=== PATIENT | male | born 1965 | race Caucasian/White ===

== ENCOUNTER 2022-02-08 10:38 | Day surgery (SDC) | payer MEDICAID, SELFPAY ==
[2022-02-08] VITALS (7 sets, daily range): BP systolic 123–145; BP diastolic 72–105; PULSE 67–75; RESP 16; TEMP 36.4–36.8; O2SAT 92–97; BMI 41.2
--- NOTE | 2022-02-08 | IMM_PTH ---
PATIENT: OMID WELLS LOC: EN U#:[id number] AGE/SX: 56/M ROOM: RE02/08/[address]: Dr. Wild Sanchez DO : 1965 BED: DIS: 02/08/2022 SPEC #: [id number] RECD: 02/11/22 13:04 STATUS: DENI REQ #: [id number] [place]: 02/08/22 00:[address]: Wild Sanchez DEPT: IMMUNOHISTOCHEMISTRY RECD BY: Carolina Durham ENTERED: 02/11/22 13:05 SP TYPE: IMMUNO OTHR DR: Dr. Stacey Coulter MD Tissues: Esophageal mucous membrane Procedures: P53 (initial) KI-67 (add) PHYSICIAN & INSTITUTION [place] [id number] SPECIMEN INFORMATION: Tissue Source: Distal esophagus Clinical Info: Dysphagia, nausea and vomiting Specimen Number: [id number] CPT code: 02263, 53743 METHODOLOGY: Deparaffinized sections of prefer/formalin-fixed tissue or PAP/DQ stained slides are incubated with monoclonal/polyclonal antibodies/oligonucleotide probes. Localization is made via biotin free immunoperoxidase method. Appropriate controls are performed and reacted as expected. Results on target cell population are indicated in the following table: RESULTS: ANTIBODY / CLONE RESULT P53 (DO-7) negative Ki-67 (30-9) positive, low These tests were developed and their performance characteristics determined by [facility]. They may not have been cleared or approved by the U.S. Food and Drug Administration. The FDA has determined that such clearance or approval is not necessary. The above immunohistochemical/dualISH markers are ordered and reviewed by the Pathologist. INTERPRETATION: Distal esophagus, biopsy: Negative for dysplasia. UMER:liliana 02/14/2022
[2022-02-08] MEDS: Lactated Ringers 1,000 ML 15 ML IV (11:00)
--- NOTE | 2022-02-08 11:51 | PCM.HP.BLA ---
History and Physical Date of Admission: 02/08/22 55 M who presents to the office today for Initial consult. Chito established with this clinic 12.09.21. Presented to [facility] ED 08.24.21 for LUQ abdominal pain starting that day with a sensation of a pop despite doing nothing strenuous; additional symptoms include chronic nausea and emesis for approximately for 4 years. Denies any aggravating or alleviating factors. He was given percocet and instructed to follow up with PCP as outpatient.? Narcotic induced constipation also an issue; utilizes oxycodone for back pain. Bowel regimen of Senna tablets daily is effective in regular BM.?Patient states that he has a BM at least once a day. PMH CAD; hernia repair, multiple; spinal osteomyelitis; obesity, Diabetes, kidney disease, high cholesterol. ? CT abd/pel 08.23.21 PH for abdominal pain noted cholecystectomy; diffuse thickening of distal esophagus; fatty replacement of pancreas; moderate stool burden; diverticulosis of descending colon; SQ tissue stranding, correlate with injection.? Biochemical Workup 08.23.21 RBC-3.77; HGB 11.1; HCT 32.9; Lymphocytes 14.4; Lipase 39; Glucose 250; BUN 44; Creatinine 2.04; Alk Phos 125; Globulin 4.0; GFR 34; A1C 8.2 Patient reports that medications, PPIs are not helpful for nausea, emesis. He also complains of difficulty swallowing and feels like even liquids are getting stuck in his throat. Patient states that he has a history of a hiatal hernia repair and his concern is that it is coming back. Patient states that he has a history of EGD, colonoscopy, and swallow study but does not remember what year these were done in. ROS Const Constitutional: Positive for fatigue and headache(s); No fever(s), frequent falls or weight change ENT ENT: Positive for headache(s) and difficulty swallowing Cardio Cardiology: No leg pain with exertion Gastro GI: Positive for abdominal pain, bloating, heartburn, difficulty swallowing, nausea/dyspepsia and vomiting; No change in bowel habits, constipation, diarrhea, Vomiting blood/hematemesis or Blood in stool Musc Musculoskeletal: Positive for joint pain, back pain, muscle cramps, numbness, tingling, Arthritis and sciatica; No abnormal gait, joint swelling, muscle weakness, stiffness, leg pain at night or leg pain with exertion Skin Skin: Positive for dry skin; No lesions, itchy eyes or rash Neuro Neurology: Positive for dizziness, headache(s), numbness, tingling and tremor(s); No abnormal gait, frequent falls, Increased tone in limbs, paralysis or seizures Psych Psychiatric: Positive for anxiety, Positive for depression, No paranoia, No Behavioral Problems, No Compulsive Behavior, No hyperactivity, No inattentiveness, No obsessions/compulsions, No Temper Tantrums and No suicidal ideation Endo Endocrine: Positive for fatigue; No weight change Aller/Imm Allergy/Immunologic: No itchy eyes De/Lymp Hematologic/Lymphatic: No easy bleeding or easy bruising Exam Const General: cooperative, comfortable, no acute distress and ill appearing chronically Nutritional Appearance: obese morbidly obese Orientation: alert, awake and oriented x3 Limitations: mental status not altered HENMT Head: normal to inspection Ears: hearing grossly normal bilaterally Eyes General: appearance normal, both eyes and all related structures Alignment and Position: alignment normal Sclera: sclerae normal Neck Neck: normal visual inspection and full ROM Neck mass: No Carotids: normal carotid upstroke Chest Chest palpation & inspection: normal inspection of the chest Resp Effort & Inspection: normal respiratory effort, able to speak in complete sentences, symmetric chest movement, no audible wheezes and no cough Auscultation: Bilateral: Clear to Auscultation Cardio Rate: regular rate Rhythm: regular rhythm Heart Sounds: S1 normal and S2 normal Bruits: no carotid bruits GI Inspection: normal to inspection and obesity Palpation: hernia ventral Musc Cervical Spine: normal cervical lordosis Thoracic/Lumbar Spine: thoracic and lumbar spine normal to inspection Skin General: no rashes or lesions noted Lesions: no lesions Rashes: no rashes Trauma: no lacerations or abrasions Wounds: wounds noted Other: + diabetic dermopathy Neuro General: patient alert, patient awake and patient oriented x3 Cognition: normal cognition Speech: speech normal Gait: gait assisted Method: walker Extrem General: normal to inspection, full ROM and no pedal edema Psych Appearance: grossly normal Mental Status: mental status grossly normal Mood: congruent mood Affect: normal affect Speech and Movement: speech and movement normal Attitude: cooperative Thought Process: normal Thought Content: normal Judgment: judgment good Quality Reporting Tobacco Screening ([facility] 138) Smoking Status: Current every day smoker Assessment and Plan Assessment and Plan (1) Dysphagia: ?Status:?Acute ?Plan: Esophageal dysphagia possibly secondary to esophageal ring, erosive esophagitis, eosinophilic esophagitis.? Undergoing upper endoscopy to evaluate his upper GI tract.? Schedule barium esophagram due to the fact that he cannot move in certain positions due to his multiple back issues.? He may need to undergo esophageal dilation.? He was explained alternatives, risk, benefits include not withstanding bleeding, infection, sepsis, perforation, need for urgent .? He will be an ASA of (2) Nausea & vomiting: ?Status:?Acute ?Plan: Nausea vomiting in the setting of a 30-year history of diabetes mellitus would be gastroparesis, dumping, peptic ulcer disease, slipped hiatal hernia repair, dysmotility of the upper GI tract.? He will get a gastric emptying study so we can evaluate his upper GI tract.? We will also perform an upper endoscopy to evaluate his upper GI tract for any structural abnormalities. ? ? ? Orders: Orders Gastric Emptying Study Today R13.10 - Dysphagia, unspecified ? I have examined the patient and the H&P has been reviewed. There are no clinical changes since date of exam.
[2022-02-08 11:55] LABS: Bedside Glucose 285 mg/dL (74-106)
--- NOTE | 2022-02-08 12:00 | EGD_PTH ---
PATIENT: OMID WELLS LOC: EN U#:[id number] AGE/SX: 56/M ROOM: RE02/08/[address]: Dr. Wild Sanchez DO : 1965 BED: DIS: 02/08/2022 SPEC #: [id number] RECD: 02/08/22 15:47 STATUS: DENI REQ #: [id number] [place]: 02/08/22 12:[address]: Wild Sanchez DEPT: SURGICAL PATHOLOGY RECD BY: Shante Leger ENTERED: 02/09/22 08:56 SP TYPE: EGD BIOPSY OT DR: Dr. 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 Chronic inflammation. Negative for dysplasia. See comment. UMER:liliana 02/11/2022 COMMENT Alcian blue/PAS stain with matched control is used in the evaluation of the specimen. Immunohistochemistry ([id number]) for P53 and Ki-67 will be performed and results will be reported separately. MICROSCOPIC DESCRIPTION Slides are reviewed. GROSS DESCRIPTION Received in fixative is one container labeled with the patient's name and designated distal esophagus biopsy. The specimen consists of two irregular fragments of light villarreal soft tissue that in aggregate measure 0.6 x 0.3 x 0.1 cm. The specimen is totally submitted in one cassette. / UMER:liliana 02/09/2022 TC:3 CPT: 43606, 47035
--- NOTE | 2022-02-08 12:29 | OP.EGD_ITS ---
Patient Name: Chito Bravo Procedure Date: 02/08/2022 12:04 PM Date of : 1965 Age: 56 Procedure: Upper GI endoscopy Indications: Functional Dyspepsia, Dysphagia Providers: Wild Sanchez DO Medicines: Monitored Anesthesia Care Patient Profile: This is a 56 year old male. Refer to note in patient chart for documentation of history and physical. Patient has symptoms of chronic abdominal cramping, chronic epigastric abdominal pain and chronic dysphagia. Complications: No immediate complications. Procedure: Pre-Anesthesia Assessment: - Prior to the procedure, a History and Physical was performed, and patient medications and allergies were reviewed. The patient is competent. The risks and benefits of the procedure and the sedation options and risks were discussed with the patient. All questions were answered and informed consent was obtained. Patient identification and proposed procedure were verified by the physician in the pre-procedure area. Mental Status Examination: alert and oriented. Airway Examination: normal oropharyngeal airway and neck mobility. Respiratory Examination: clear to auscultation. CV Examination: normal. Prophylactic Antibiotics: The patient does not require prophylactic antibiotics. Prior Anticoagulants: The patient has taken no previous anticoagulant or antiplatelet agents. ASA Grade Assessment: III - A patient with severe systemic disease. After reviewing the risks and benefits, the patient was deemed in satisfactory condition to undergo the procedure. The anesthesia plan was to use monitored anesthesia care (MAC). Immediately prior to administration of medications, the patient was re-assessed for adequacy to receive sedatives. The heart rate, respiratory rate, oxygen saturations, blood pressure, adequacy of pulmonary ventilation, and response to care were monitored throughout the procedure. The physical status of the patient was re-assessed after the procedure. After obtaining informed consent, the endoscope was passed under direct vision. Throughout the procedure, the patient's blood pressure, pulse, and oxygen saturations were monitored continuously. The gastroscope was introduced through the mouth, and advanced to the second part of duodenum. The upper GI endoscopy was accomplished without difficulty. The patient tolerated the procedure well. Scope In: 12:15:29 PM Scope Out: 12:18:16 PM Total Procedure Duration Time 0 hours 2 minutes 47 seconds Findings: Patchy, white plaques were found in the upper third of the esophagus. LA Grade A (one or more mucosal breaks less than 5 mm, not extending between tops of 2 mucosal folds) esophagitis with no bleeding was found 37 to 39 cm from the incisors. Biopsies were taken with a cold forceps for histology. Verification of patient identification for the specimen was done. Estimated blood loss was minimal. One benign-appearing, intrinsic stenosis was found 37 to 39 cm from the incisors. This stenosis was moderately severe and measured 2 mm (inner diameter) x 2 cm (in length). The stenosis was traversed. A guidewire was placed and the scope was withdrawn. Dilation was performed with a Savary dilator with no resistance at 42 Fr. The dilation site was examined following endoscope reinsertion and showed mild improvement in luminal narrowing. Estimated blood loss was minimal. A large amount of a trichobezoar was found at the pylorus. No gross lesions were noted in the duodenal bulb. Impression: - Esophageal plaques were found, consistent with candidiasis. - LA Grade A reflux esophagitis. Biopsied. - Benign-appearing esophageal stenosis. Dilated. - A large amount of a trichobezoar in the stomach. - No gross lesions in the duodenal bulb. Recommendation: - Discharge patient to home. - Resume previous diet. - Nystatin suspension 100,000 units PO QID for 1 week. - Gastric emptying scan for delayed gastric emptying - Continue present medications. Procedure Code(s): --- Professional --- 86558, Esophagogastroduodenoscopy, flexible, transoral; with insertion of guide wire followed by passage of dilator(s) through esophagus over guide wire 34985, 59,51, Esophagogastroduodenoscopy, flexible, transoral; with biopsy, single or multiple CPT copyright 2017 [employer]. All rights reserved. The codes documented in this report are preliminary and upon class c truck driver review may be revised to meet current compliance requirements. Wild Sanchez DO 02/08/2022 12:29:11 PM This report has been signed electronically. Number of Addenda: 0 Note Initiated On: 02/08/2022 12:04 PM
--- NOTE | 2022-02-08 12:30 | OP.CCLET_ITS ---
02/08/2022 Stacey Coulter Re : Upper GI endoscopy procedure for Chito Bravo Dear Marylin This procedure was performed on Tuesday, February 08, 2022. My impressions and recommendations are as follows: Impressions : - Esophageal plaques were found, consistent with candidiasis. - LA Grade A reflux esophagitis. Biopsied. - Benign-appearing esophageal stenosis. Dilated. - A large amount of a trichobezoar in the stomach. - No gross lesions in the duodenal bulb. Recommendations : - Discharge patient to home. - Resume previous diet. - Nystatin suspension 100,000 units PO QID for 1 week. - Gastric emptying scan for delayed gastric emptying - Continue present medications. My findings are described in the full procedure note, which is enclosed. If I can be of further assistance, please feel free to contact me at . Sincerely, Wild Friend, 02/08/2022 12:29:11 PM This report has been signed electronically.
== END 2022-02-08 13:08 | disposition home or self-care (01) ==
LOC: EN 10:42 → AC 10:45
PROVIDERS: PCP Internal Medicine; Referring Provider Internal Medicine; Visit Provider Internal Medicine Gastroenterology
PROC: 0DJ08ZZ Inspection of Upper Intestinal Tract, Via Natural or Artificial Opening Endoscopic (ICD-10-PCS; CPT 43235; principal; 2022-02-08 11:55)
DX: K22.2 Esophageal obstruction (principal); E11.22 Type 2 diabetes mellitus with diabetic chronic kidney disease; E11.40 Type 2 diabetes mellitus with diabetic neuropathy, unspecified; Z79.4 Long term (current) use of insulin; N18.30 Chronic kidney disease, stage 3 unspecified; T18.2XXA Foreign body in stomach, initial encounter; X58.XXXA Exposure to other specified factors, initial encounter; K21.00 Gastro-esophageal reflux disease with esophagitis, without bleeding; I12.9 Hypertensive chronic kidney disease with stage 1 through stage 4 chronic kidney disease, or unspecified chronic kidney disease; R13.10 Dysphagia, unspecified; I25.10 Atherosclerotic heart disease of native coronary artery without angina pectoris; E78.00 Pure hypercholesterolemia, unspecified; E66.9 Obesity, unspecified; F17.210 Nicotine dependence, cigarettes, uncomplicated; Z79.82 Long term (current) use of aspirin; Z79.899 Other long term (current) drug therapy
CPT/HCPCS: 43239; 43248; 82962; 88305; 88313; 88341; 88342; J7120; J2405

== ENCOUNTER → 2023-07-28 | Outpatient (CLI) | payer MEDICAID, SELFPAY ==
--- NOTE | 2023-07-28 08:15 | CT_ITS ---
STUDY: CT ABDOMEN AND PELVIS WITH CONTRAST REASON FOR EXAM: Male, 57 years old. Nausea/vomiting, hiatal hernia, dysphagia. History of gastroparesis. RADIATION DOSAGE (If Supplied By Facility): CTDIvol = ( 18.39 ) mGy, DLP = ( 1416.91 ) mGycm TECHNIQUE: Transaxial images were obtained from the dome of the diaphragm to the symphysis pubis with oral contrast. Oral and amp; IV Redi-CAT and amp; 100mL Isovue-300 was administered. Sagittal and coronal images were reconstructed. Individualized dose optimization techniques were used for this CT. COMPARISON: None. FINDINGS: Mild degree of bibasilar linear atelectasis. Coronary artery calcification. There is hepatomegaly with diffuse hepatic enlargement. There are surgical clips in the gallbladder fossa consistent with a prior cholecystectomy. Normal spleen. There is diffuse atrophy of the pancreas. Normal bilateral adrenal glands. Normal right kidney. Normal left kidney. There is a small hiatal hernia. Normal small intestine. Large amount of fecal material is seen in the colon. The appendix is visualized and appears normal. There is scattered atherosclerotic calcification of the abdominal aorta, without a demonstrated aneurysm. Normal inferior vena cava. Normal retroperitoneum. There is a distended urinary bladder. Normal abdominal wall. There are diffuse degenerative changes of the visualized lumbar spine. There is no loss of the normal lumbar lordosis. CT/Abdomen/Pelvis WITH Contrast IMPRESSION: Hepatomegaly. Status post cholecystectomy. Large amount of fecal material is seen in the colon. Electronically Signed: Perry Ordonez MD at 9:37 EDT ,
[2023-07-28 08:46] LABS: CREATININE FINGERSTICK 1.2 mg/dL (0.70-1.30); EGFR FINGERSTICK > 60.0000 mL/min (>60)
== END | disposition home or self-care (01) ==
LOC: CT 08:14
PROVIDERS: PCP Internal Medicine; Referring Provider Internal Medicine Gastroenterology; Visit Provider Internal Medicine Gastroenterology
DX: R11.2 Nausea with vomiting, unspecified (principal); K44.9 Diaphragmatic hernia without obstruction or gangrene; R13.10 Dysphagia, unspecified
CPT/HCPCS: 74177; Q9967

== ENCOUNTER 2023-10-04 07:39 | Day surgery (SDC) | payer MEDICAID, SELFPAY ==
[2023-10-04] VITALS (8 sets, daily range): BP systolic 133–153; BP diastolic 69–88; PULSE 59–68; RESP 14–16; TEMP 36.1–36.3; O2SAT 16–99; BMI 53.9
[2023-10-04] MEDS: Lactated Ringers 1,000 ML 15 ML IV (08:11)
--- NOTE | 2023-10-04 08:19 | PRE.ANES_ITS ---
ASA Classification* ASA Classification ASA Classification: 3 Assessment & Plan Anesthesia* Anesthesia Assessment Anesthesia Assessment: Discussed sedation and/or anesthesia options, risks, benefits, and alternatives with patient/parents/legal guardian/POA. Questions invited. The patient/parents/legal guardian/POA seems to understand and agrees to proceed with anesthesia plan. Reviewed the physical assessment, medical history, allergy history and patient home medications list prior to surgery/procedure/anesthetic and documented any changes. Performed airway and anesthesia risk assessments. Anesthesia Type Anesthesia Type: MAC History Source History Obtained from:: Patient and Chart Anesthesia Focused Assessment* Temperature: 96.9 F Pulse Rate: 66 Blood Pressure: 153/88 Respiratory Rate: 16 Pulse Ox: 99 Oxygen Delivery Method: Room Air Airway Assessment Mouth opens: >3 cm Mallampati Score: IV Teeth Condition: Loose (#9 Tooth is loose) and Missing (Multiple molar missing) Neck Range of motion (ROM): Limited ROM (Decreased extension.) Pertinent Findings EKG Pertinent Findings:: September 29, 2023. Sinus rhythm. Prolonged CT interval. Cath Results Pertinent Findings:: September 27, 2023. Proximal right coronary artery was noted to have it be 90% stenosed. Stent was placed. Lumen was then noted to have 0% stenosis. Chronic total obstruction of mid left circumflex noted. Distal left circumflex is perfused with collateral flow. Ejection fraction is 65 to 70%. Consults Pertinent Findings:: September 28, 2023. Dr. Shepherd. Patient was under history of unstable angina. The RCA has been stented. The mid left circumflex is obstructed with the distal left circumflex being perfused with collaterals. Patient is stable at this time Chest Film Results Pertinent Findings:: CT of the chest was done on June 03, 2023. No acute pulmonary disease was noted. Focused Labs Anesthesia Preop lab: CBC CHEMISTRY POC Glucose 85 mg/dL (74-106) 10/04/23 08:10 COAG Lab additional comments: Fingerstick blood sugar is 85 at 810 this morning. Pre-Assessment Diagnosis/Proposed Procedure Planned Operative Procedure(s): EGD Anesthesia History Anesthesia History - press tool maker: Anesthesia History - press tool maker Hx Hospitalization Yes: FOR HEART CATH 09/202310/03/23 15:26 Any Problems With Anesthesia Yes: PONV 10/03/23 15:26 Cholinesterase deficiency No 10/03/23 15:26 You/Your Family Experience No 10/03/23 15:26 fever (hyperthermia) with Relationship Recent Exposure to Contagious No 10/04/23 08:05 Disease Does patient have nerve No 10/03/23 15:26 stimulator Patient instructed to have device shut off --Does patient have Pacemaker No 10/04/23 08:05 or ICD? When Was Last Pacemaker Check QUESTION #4 FULL TEXT: You/Your Family Experience fever (hyperthermia) with Anesthesia Last Oral Intake Last Oral intake: Last Oral Intake NPO since 06:10 10/04/23 08:05 Meds taken in AM with sips of Yes 10/04/23 08:05 water? Meds patient instructed to see home med list 10/04/23 08:05 take am of surgery PONV PONV - press tool maker: PONV - press tool maker Female No 10/03/23 15:26 HX of Motion Sickness No 10/03/23 15:26 HX of N/V After Surgery Yes 10/03/23 15:26 Non-Smoker No 10/03/23 15:26 Duration of Surgery greater No 10/03/23 15:26 than 60 minutes Number of Risk Factors 1 10/03/23 15:26 PONV Score Low Risk 10/03/23 15:26 Height & Weight Height & Weight: Anesthesia: Height & Weight Height 5 ft 5 in 10/04/23 08:05 Weight: 147 kg 10/04/23 08:05 Body Mass Index (BMI) 53.9 10/04/23 08:05 Respiratory Assessment Respiratory Assessment - press tool maker: Respiratory Tract Infection Hx - press tool maker Hx Respiratory Tract Infection No 10/03/23 15:26 STOP Sleep Apnea STOP Sleep Apnea - press tool maker: STOP Sleep Apnea - press tool maker Hx Hypertension Yes: CONTROLLED WITH MED 10/03/23 15:26 Hx Sleep Apnea No 10/03/23 15:26 CPAP BIPAP Do you snore loudly (louder No 10/03/23 15:26 than talking or can be heard Do you often feel tired/ No 10/03/23 15:26 fatigued/ sleepy during daytime? Has anyone observed you stop No 10/03/23 15:26 breathing during sleep? STOP Results Negative 10/03/23 15:26 QUESTION #5 FULL TEXT : Do you snore loudly (louder than talking or can be heard through closed doors)? 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 Use History - press tool maker: Tobacco Use History - press tool maker Tobacco Use Smoking Status Current every day smoker 10/03/23 15:26 Hx Tobacco Use Yes 10/03/23 15:26 Years Smoking Packs Smoked per Day Smoking Cessation Date was within the last 15 years Hx Smoking Cessation Date Hx Smoking Cessation Counseling Patient smoked today. 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 Specify any problems Hx of Preganancy in last 3 N/A 10/03/23 15:26 Months Nurse Filling Out Transfusion DSCHRIBER 10/03/23 15:26 & Questions: Date: 10/03/23 10/03/23 15:26 Time: 15:10/03/23 15:26 Patient unable to answer at this time (ie. confused, unrespo /Reproduction History /Reproductive History - press tool maker: /Reproductive Hx- press tool maker Hx Now Gestational Age (in weeks): EDC: Hx Hx Para Hx Section SAB No 10/03/23 15:26 Active Medications Active Medications: Current Medications Generic Name Dose Route Start Last Admin Trade Name Freq PRN Reason Stop Dose Admin Lactated Ringer's 1,000 mls @ 15 mls/hr 10/04/23 08:00 10/04/23 08:11 IV 15 mls/hr .Q48H EDELMIRA Administration PFSH Medical History Wears glasses Loose, teeth History of Clostridium difficile infection Bipolar disorder Alcohol use Substance abuse Bruising Abrasion Rash History of steroid therapy Rheumatoid arthritis Prostate disease History of renal dialysis Anemia Fatty liver Restless legs Migraine headache Injury of head and neck Seizures History of diverticulitis On home oxygen therapy Cardiology follow-up encounter History of echocardiogram History of stress test History of CHF (congestive heart failure) Gastric reflux alf resident MRSA infection Depression Insulin dependent diabetes mellitus Walker as ambulation aid Arthritis History of renal disease Injury of back Back pain Smoker Leg cramps History of pain when walking History of edema Hypertension History of heart attack Hypertension in stage 3 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 Personal history of transient ischemic attack (TIA), and cerebral infarction w ithout residual deficits OCD (obsessive compulsive disorder) Hypokalemia Benign prostatic hyperplasia with lower urinary tract symptoms Constipation GERD (gastroesophageal reflux disease) Insomnia Anxiety Nicotine dependence, cigarettes, uncomplicated Atherosclerotic heart disease of [place] coronary artery without angina pectoris Chronic multifocal osteomyelitis, 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, intractable, without status epilepticus Hereditary and idiopathic neuropathy, unspecified Other mechanical complication of implanted electronic neurostimulator of spinal cord electrode (lead), subsequent encounter Hiatal hernia Cholecystectomy planned Neuropathy Kidney disease High cholesterol Heart disease Gastrointestinal problem COPD (chronic obstructive pulmonary disease) Diabetes Back problem Allergies Home Medications ?Medication ?Instructions ?Recorded ?Last Taken ?Type amlodipine 10 mg tablet 10 mg PO DAILY 09/01/21 10/04/23 History ascorbic acid (vitamin C) 500 mg 500 mg PO DAILY 09/01/21 10/03/23 History tablet aspirin 81 mg tablet,delayed 81 mg PO DAILY 09/01/21 10/03/23 History release (Adult Low Dose Aspirin) clonidine HCl 0.3 mg tablet 0.3 mg PO TID 09/01/21 10/04/23 History cyclobenzaprine 10 mg tablet 10 mg PO 4X/DAY 09/01/21 10/04/23 History docusate sodium 100 mg tablet 100 mg PO DAILY 09/01/21 Unknown History doxycycline hyclate 100 mg tablet 100 mg PO BID 09/01/21 10/03/23 History finasteride 5 mg tablet 5 mg PO DAILY 09/01/21 10/03/23 History fluticasone propionate 50 2 spray intranasal BID 09/01/21 10/03/23 History mcg/actuation nasal spray,suspension (Allergy Relief (fluticasone)) gemfibrozil 600 mg tablet 600 mg PO BID 09/01/21 10/03/23 History hydralazine 100 mg tablet 100 mg PO TID 09/01/21 10/03/23 History isosorbide mononitrate 60 mg 60 mg PO DAILY 09/01/21 10/04/23 History tablet,extended release 24 hr levetiracetam 500 mg tablet 500 mg PO BID 09/01/21 10/04/23 History (Keppra) loperamide 2 mg tablet 2 mg PO Q4H PRN PRN Diarrhea 09/01/21 Unknown History oxycodone 10 mg tablet 10 mg PO 4X/DAY 09/01/21 10/04/23 History polyethylene glycol 3350 17 4 g PO PRN PRN Constipation 09/01/21 Unknown History gram/dose oral powder (Miralax) sertraline 100 mg tablet 100 mg PO DAILY 09/01/21 10/04/23 History tamsulosin 0.4 mg capsule (Flomax) 0.4 mg PO BID 09/01/21 10/03/23 History trazodone 300 mg tablet 300 mg PO QHS 09/01/21 10/03/23 History cholecalciferol (vitamin D3) 125 125 mcg PO DAILY 12/07/22 10/04/23 History mcg (5,000 unit) capsule dapagliflozin propanediol 10 mg 10 mg PO DAILY 12/07/22 10/03/23 History tablet (Farxiga) bismuth subsalicylate 525 mg/15 mL 1,050 mg PO Q30-60M PRN indigestion 06/14/23 Unknown History oral suspension (Pepto-Bismol Max St) carvedilol 25 mg tablet 50 mg PO BID 06/14/23 10/04/23 History duloxetine 30 mg capsule,delayed 30 mg PO BID 06/14/23 10/04/23 History release flash glucose scanning reader #1 ea 06/14/23 Unknown Rx (FreeStyle Claude 2 [place]) flash glucose sensor (FreeStyle #2 ea 06/14/23 Unknown Rx Claude 2 Sensor kit) gabapentin 800 mg tablet 800 mg PO TID 06/14/23 10/04/23 History insulin aspart U-100 100 unit/mL 1 sliding scale dose subcut 06/14/23 10/03/23 History (3 mL) subcutaneous pen (Novolog .COMPLEX FlexPen U-100 Insulin aspart) insulin regular hum U-500 conc 500 105 unit subcut BREAKFAST 06/14/23 10/03/23 History unit/mL subcutaneous soln (Humulin R U-500 (Concentrated) Insulin) ipratropium 0.5 mg-albuterol 3 mg 3 ml inhalation Q6H PRN PRN 06/14/23 Unknown History (2.5 mg base)/3 mL nebulization shortness of breath or wheezing soln melatonin 3 mg capsule 3 mg PO HS 06/14/23 10/03/23 History mirtazapine 7.5 mg tablet 7.5 mg PO QHS 06/14/23 10/03/23 History ondansetron HCl 4 mg tablet 4 mg PO Q8H PRN PRN nausea and 06/14/23 Unknown History vomiting pantoprazole 40 mg tablet,delayed 40 mg PO BID 06/14/23 10/04/23 History release rosuvastatin 40 mg tablet 40 mg PO QDAY 06/14/23 10/03/23 History sucralfate 1 gram tablet (Carafate) 1 g PO 4X/DAY 06/14/23 10/03/23 History Trulicity 1.5 mg/0.5 mL 1.5 mg (0.5 mL) subcut QWEEK #2 mL 08/29/23 10/01/23 Rx subcutaneous pen injector (dulaglutide) clopidogrel 75 mg tablet (Plavix) 75 mg PO DAILY 10/03/23 10/03/23 History insulin regular hum U-500 conc 500 115 unit subcut LUNCH 10/03/23 10/03/23 History unit/mL(3 mL) subcut pen (Humulin R U-500 (Conc) Insulin Kwikpen) insulin regular hum U-500 conc 500 125 unit subcut QHS 10/03/23 10/03/23 History unit/mL(3 mL) subcut pen (Humulin R U-500 (Conc) Insulin Kwikpen) prednisone 10 mg tablet 40 mg PO DAILY 10/03/23 10/03/23 History Allergy/AdvReac Type Severity Reaction Status Date / Time acetaminophen Allergy Intermediate Other Verified 10/04/23 08:05 haloperidol (From Haldol) Allergy Intermediate Other Verified 10/04/23 08:05 hydrocodone Allergy Intermediate Other Verified 10/04/23 08:05 NSAIDS (Non-Steroidal Allergy Intermediate KIDNEY Verified 10/04/23 08:05 Anti-Inflamma ISSUES Family History Other Arthritis Breast cancer CVA (cerebral vascular accident) Cancer Depression H/O transfusion of whole blood H/O ulcer disease Heart disease High cholesterol Hypertension Myocardial infarction Ovarian cancer Parkinson disease Skin cancer Uterine cancer Surgical History History of esophagogastroduodenoscopy (EGD) History of cardiac catheterization Hx of total knee arthroplasty History of cholecystectomy Presence of coronary angioplasty implant and graft Hx of heart artery stent H/O spinal fusion H/O umbilical hernia repair H/O arthroscopic knee surgery Social History Smoking Status: Current every day smoker tobacco type: cigarettes alcohol intake: former substance use type: does not use what type of physical activity do you participate in: none and other Review of Systems (Anesthesia) ROS Narrative System reviewed and no additional complaints, except as documented.
[2023-10-04 08:29] LABS: Bedside Glucose 85 mg/dL (74-106)
--- NOTE | 2023-10-04 09:09 | HP.PCM_ITS ---
History and Physical Date of Admission: 10/04/23 OMID WELLS, is a 57 M who presents to the office today for follow up. [facility] ED 08.23.21 for LUQ abdominal pain starting that day with a sensation of a pop despite doing nothing strenuous; additional symptoms include chronic nausea and emesis approximately 4 years. He was given percocet and instructed to follow up with PCP as outpatient. Narcotic induced constipation also an issue; utilizes oxycodone for back pain. Bowel regimen senna tabs and is effective in regular BM. CT abd/pel .09.08 [facility] for abdominal pain noted cholecystectomy; diffuse thickening of distal esophagus; fatty replacement of pancreas; moderate stool burden; diverticulosis of descending colon; SQ tissue stranding, correlate with injection. Biochemical Workup RBC-3.77; HGB 11.1; HCT 32.9; Lymphocytes 14.4; Lipase 39; Glucose 250; BUN 44; Creatinine 2.04; Alk Phos 125; Globulin 4.0; GFR 34; A1C 8.2 *BGI established . with continued N/V and dysphagia. Reports history of hiatal hernia. 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 Nystatin suspension; GET Gastric emptying study not yet performed OV 3.6.23 with continued N/V and dysphagia. Symptoms are intermittent and vary by the day. Some days, for several days, he has no symptoms and feels overall well. Symptom presentation varies and can go a week or more without difficulty. OV 4.5.24- Pt states he is having trouble swallowing again. Is worse than last time. Was on liquid Carafate but the script ran out. His sx are better on Carafate. Says food takes a while to get down to stomach. Sometimes has to vomit to get food out. Is not having any abdominal pain or issues with bowels. Exam Const General: cooperative, healthy appearing, comfortable and no acute distress Nutritional Appearance: obese Orientation: alert, awake and oriented x3 HENMT Head: normal to inspection Eyes General: appearance normal, both eyes and all related structures Alignment and Position: alignment normal Sclera: sclerae normal Neck Neck: normal visual inspection Carotids: normal carotid upstroke Chest Chest palpation & inspection: normal inspection of the chest Resp Effort & Inspection: normal respiratory effort, able to speak in complete sentences, symmetric chest movement, normal respiratory pattern, no audible wheezes and no cough Auscultation: Bilateral: Clear to Auscultation Cardio Rate: regular rate Rhythm: regular rhythm Heart Sounds: S1 normal and S2 normal Bruits: no carotid bruits GI Inspection: normal to inspection and obesity Skin General: no rashes or lesions noted Lesions: no lesions Rashes: no rashes Trauma: no lacerations or abrasions Wounds: no wounds Neuro General: patient alert, patient awake and patient oriented x3 Cognition: normal cognition Gait: gait assisted Method: walker Extrem General: normal to inspection and no pedal edema Psych Appearance: grossly normal Mental Status: mental status grossly normal Mood: congruent mood Affect: normal affect Speech and Movement: speech and movement normal Attitude: cooperative Thought Process: normal Thought Content: normal Judgment: judgment good Quality Reporting Tobacco Screening ([facility] 138) Smoking Status: Current every day smoker Assessment and Plan Assessment and Plan (1) Nausea & vomiting: Status: Chronic Plan: Nausea vomiting in the setting of a 30-year history of diabetes mellitus would be gastroparesis, dumping, peptic ulcer disease, slipped hiatal hernia repair, dysmotility of the upper GI tract. He will get a gastric emptying study so we can evaluate his upper GI tract. He did have food in the stomach that was seen on his upper endoscopy. (2) Dysphagia: Status: Chronic Plan: I think some of this will continue to position. Also he has signs and symptoms motility disorder. He will likely need manometry to see if he would benefit from Botox therapy. He does take narcotics which can exacerbate esophageal motility disorders along with motility disorders of the stomach and small bowel along with the colon. After I have the gastric emptying study we will likely need to schedule manometry. 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 He is on PPI therapy once a day. He may benefit from having it twice a day but he has chronic kidney disease secondary to diabetic nephropathy. Medications: New I have examined the patient and the H&P has been reviewed. There are no clinical changes since date of exam.
--- NOTE | 2023-10-04 09:32 | OP.EGD_ITS ---
Patient Name: Chito Bravo Procedure Date: 10/04/2023 9:12 AM Date of : 1965 Age: 57 Procedure: Upper GI endoscopy Indications: Dysphagia Providers: Wild Sanchez DO Medicines: Monitored Anesthesia Care Patient Profile: This is a 57 year old male. Refer to note in patient chart for documentation of history and physical. Patient has symptoms of chronic dysphagia. Complications: No immediate complications. Procedure: Pre-Anesthesia Assessment: - Prior to the procedure, a History and Physical was performed, and patient medications and allergies were reviewed. The patient is competent. The risks and benefits of the procedure and the sedation options and risks were discussed with the patient. All questions were answered and informed consent was obtained. Patient identification and proposed procedure were verified by the physician in the pre-procedure area. Mental Status Examination: alert and oriented. Airway Examination: normal oropharyngeal airway and neck mobility. Respiratory Examination: clear to auscultation. CV Examination: normal. Prophylactic Antibiotics: The patient does not require prophylactic antibiotics. Prior Anticoagulants: The patient has taken no anticoagulant or antiplatelet agents. ASA Grade Assessment: IV - A patient with severe systemic disease that is a constant threat to life. After reviewing the risks and benefits, the patient was deemed in satisfactory condition to undergo the procedure. The anesthesia plan was to use monitored anesthesia care (MAC). Immediately prior to administration of medications, the patient was re-assessed for adequacy to receive sedatives. The heart rate, respiratory rate, oxygen saturations, blood pressure, adequacy of pulmonary ventilation, and response to care were monitored throughout the procedure. The physical status of the patient was re-assessed after the procedure. After obtaining informed consent, the endoscope was passed under direct vision. Throughout the procedure, the patient's blood pressure, pulse, and oxygen saturations were monitored continuously. The Endoscope was introduced through the mouth, and advanced to the second part of duodenum. The upper GI endoscopy was accomplished without difficulty. The patient tolerated the procedure well. Scope In: 9:18:42 AM Scope Out: 9:22:12 AM Total Procedure Duration Time 0 hours 3 minutes 30 seconds Findings: Diffuse, yellow plaques were found in the entire esophagus. Abnormal motility was noted in the lower third of the esophagus. The cricopharyngeus was normal. There is a decrease in motility of the esophageal body. The distal esophagus/lower esophageal sphincter is spastic, but gives up passage to the endoscope. Normal peristalsis not noted. Multiple 5 mm hyperplastic polyps with bleeding and stigmata of recent bleeding were found in the gastric antrum. Food was found in the entire esophagus. Retained fluid was found in the entire examined stomach. Fluid aspiration was performed. Verification of patient identification for the specimen was done. Estimated blood loss was minimal. No gross lesions were noted in the first portion of the duodenum. Impression: - Esophageal plaques were found, suspicious for candidiasis. - Abnormal esophageal motility, suspicious for achalasia. - Food in the esophagus. - Retained gastric fluid. Fluid aspiration performed. - No gross lesions in the first portion of the duodenum. Recommendation: - Discharge patient to home. - Resume previous diet. - Nystatin suspension 100,000 units PO QID. - Continue present medications. Procedure Code(s): --- Professional --- 37703, Esophagogastroduodenoscopy, flexible, transoral; diagnostic, including collection of specimen(s) by brushing or washing, when performed (separate procedure) CPT copyright 2021 [employer]. All rights reserved. The codes documented in this report are preliminary and upon reptile farmer review may be revised to meet current compliance requirements. Wild Sanchez DO 10/04/2023 9:31:38 AM This report has been signed electronically. Number of Addenda: 0 Note Initiated On: 10/04/2023 9:12 AM
--- NOTE | 2023-10-04 09:32 | OP.CCLET_ITS ---
10/04/2023 Stacey Coulter Re : Upper GI endoscopy procedure for Chito Bravo Dear Marylin This procedure was performed on Wednesday, October 04, 2023. My impressions and recommendations are as follows: Impressions : - Esophageal plaques were found, suspicious for candidiasis. - Abnormal esophageal motility, suspicious for achalasia. - Food in the esophagus. - Retained gastric fluid. Fluid aspiration performed. - No gross lesions in the first portion of the duodenum. Recommendations : - Discharge patient to home. - Resume previous diet. - Nystatin suspension 100,000 units PO QID. - Continue present medications. My findings are described in the full procedure note, which is enclosed. If I can be of further assistance, please feel free to contact me at . Sincerely, Wild Sanchez, 10/04/2023 9:31:38 AM This report has been signed electronically.
--- NOTE | 2023-10-04 09:33 | PCM.POST.ANE ---
Anesthesia: Postop Eval I Current Vital Signs Temperature: 97.4 F Pulse Rate: 62 Blood Pressure: 152/73 Respiratory Rate: 14 Pulse Ox: 96 Oxygen Delivery Method: Room Air Assessment Airway patent: Yes Spontaneous unlabored respirations: Yes Mental status: Awake and Calm nausea: No Vomiting: No Anesthesia Complication: No Fluid Hydration Crystalloid volume administer (ml): 400 Total IV fluid infused: 400 Progress Note Anesthesia document: Postop Eval 1 completed: Yes
--- NOTE | 2023-10-04 17:50 | PCM.POSTANE2 ---
Anesthesia Postop Eval I Sum Postop Eval Completion status Anesthesia document: Postop Eval 1 completed: Yes Anesthesia Postop Eval I Summary Anesthesia Postop Eval I Summary: Anesthesia Postop Eval I: Assessment Summary Airway patent Yes 10/04/23 09:34 [email or web address] Spontaneous unlabored Yes 10/04/23 09:34 [email or web address] respirations Mental status Awake,Calm 10/04/23 09:34 [email or web address] nausea No 10/04/23 09:34 [email or web address] Vomiting No 10/04/23 09:34 [email or web address] Anesthesia Postop Eval I: Fluid Summary Crystalloid volume administer 400 10/04/23 09:34 [email or web address] (ml) Colloids volume administered ( ml) Blood Product volume administered (ml) Total IV fluid infused 400 10/04/23 09:34 [email or web address] Anesthesia Postop Eval I: Summary Notes Anesthesia Complication No 10/04/23 09:34 [email or web address] Anesthesia Complication Comment: Post-operative progress note Anesthesia: Postop Eval II Evaluation Mental status: Awake and Calm Pain Level: 0 nausea: No Vomiting: No Complications Anesthesia Complication: No
== END 2023-10-04 10:09 | disposition home or self-care (01) ==
LOC: EN 07:42 → AC 07:42
PROVIDERS: PCP Internal Medicine; Referring Provider Internal Medicine; Visit Provider Internal Medicine Gastroenterology
PROC: 0DJ08ZZ Inspection of Upper Intestinal Tract, Via Natural or Artificial Opening Endoscopic (ICD-10-PCS; CPT 43235; principal; 2023-10-04 08:40)
DX: T18.128A Food in esophagus causing other injury, initial encounter (principal); J44.9 Chronic obstructive pulmonary disease, unspecified; E11.22 Type 2 diabetes mellitus with diabetic chronic kidney disease; E11.40 Type 2 diabetes mellitus with diabetic neuropathy, unspecified; N18.30 Chronic kidney disease, stage 3 unspecified; K30 Functional dyspepsia; F17.200 Nicotine dependence, unspecified, uncomplicated; Z87.19 Personal history of other diseases of the digestive system; K22.70 Barrett's esophagus without dysplasia; X58.XXXA Exposure to other specified factors, initial encounter; Z79.890 Hormone replacement therapy; E78.00 Pure hypercholesterolemia, unspecified; I12.9 Hypertensive chronic kidney disease with stage 1 through stage 4 chronic kidney disease, or unspecified chronic kidney disease; E66.9 Obesity, unspecified; I25.10 Atherosclerotic heart disease of native coronary artery without angina pectoris; K21.9 Gastro-esophageal reflux disease without esophagitis; Z90.49 Acquired absence of other specified parts of digestive tract
CPT/HCPCS: 43235; 82962; J7120; J2405

== ENCOUNTER → 2024-06-13 | Outpatient (CLI) | payer MEDICAID, SELFPAY ==
[2024-06-13 09:01] LABS: CREATININE FINGERSTICK 1.1 mg/dL (0.70-1.30); EGFR FINGERSTICK > 60.0000 mL/min (>60)
--- NOTE | 2024-06-13 09:20 | CT_ITS ---
PROCEDURE: ABDOMEN/PELVIS WITH CONTRAST 06/13/2024 REASON FOR EXAM: 58-year-old male, abdominal pain, history of non-Hodgkin's lymphoma, history of osteomyelitis in the spine status post hardware removal. TECHNIQUE: Abdomen and pelvis CT with intravenous contrast. Coronal and Sagittal reconstruction series were provided. PATIENT PREPARATION: Per protocol ORAL CONTRAST TYPE: None. CONTRAST: Isovue-300 VOLUME: 100mL One or more dose reduction techniques were used (e.g., Automated exposure control, adjustment of the mA and/or kV according to patient size, use of iterative reconstruction technique. RADIATION DOSE SUMMARY: CTDlvol: 50 mGy DLP: 1200 mGycm COMPARISON: CT abdomen pelvis 07/28/2023. FINDINGS: Lung bases: The lung bases are clear. The heart is normal in size with coronary artery calcifications. Liver: The liver is normal in size with diffuse hepatic steatosis. The main portal veins are patent. No biliary ductal dilation. Gallbladder: Prior cholecystectomy. Spleen: Unremarkable. Pancreas: Diffuse fatty atrophy. Adrenals: Unremarkable adrenal glands. Kidneys: Renal cysts and additional hypodensities, likely cysts. No hydronephrosis or nephrolithiasis. Bladder: The urinary bladder is distended and unremarkable. Reproductive Organs: Unremarkable. Bowel: The bowel loops are normal in caliber. No ascites or pneumoperitoneum. Normal appendix. Lymph nodes: No suspicious lymph node enlargement. Vasculature: Mild diffuse atherosclerotic calcifications are noted. Bones: Stable findings of prior lumbar spinal hardware placement and removal. Severe thoracolumbar spondylosis. CT/Abdomen/Pelvis WITH Contrast IMPRESSION: 1. No acute abdominopelvic finding. 2. Hepatic steatosis. Reading Location: [id number]
== END | disposition home or self-care (01) ==
LOC: CT 08:23
PROVIDERS: PCP Internal Medicine; Referring Provider Internal Medicine Gastroenterology; Visit Provider Internal Medicine Gastroenterology
DX: R10.9 Unspecified abdominal pain (principal); R11.2 Nausea with vomiting, unspecified
CPT/HCPCS: 74177; Q9967

== ENCOUNTER 2024-06-14 07:43 | Day surgery (SDC) | payer MEDICAID, SELFPAY ==
[2024-06-14] MEDS: Lidocaine Jelly 2% 20 ML Syringe (URO-JET) 1 APPLIC (07:50)
[2024-06-14 07:53] VITALS: BP 169/106; PULSE 82; RESP 16; TEMP 37.2; O2SAT 96
== END 2024-06-14 08:21 | disposition home or self-care (01) ==
PROVIDERS: PCP Internal Medicine; Referring Provider Internal Medicine; Visit Provider Internal Medicine Gastroenterology
PROC: F00ZJWZ Instrumental Swallowing and Oral Function Assessment using Swallowing Equipment (ICD-10-PCS; CPT 43235; principal; 2024-06-14 07:55)
DX: R13.19 Other dysphagia (principal); F17.210 Nicotine dependence, cigarettes, uncomplicated
CPT/HCPCS: 91010

== ENCOUNTER → 2024-07-17 | Outpatient (CLI) | payer MEDICAID, SELFPAY ==
--- NOTE | 2024-07-17 08:19 | US_ITS ---
PROCEDURE: ABD LIMITED W/ ELASTOGRAPHY REASON FOR EXAM: DIFFUSE HEPATIC STEATOSIS COMPARISON: Prior CT scan dated June 13, 2024. TECHNIQUE: Right upper quadrant abdominal ultrasound. GIGAS ElastQ Imaging shear wave elastography for non-invasive assessment of liver tissue stiffness. Teresa EPIQ Elite. FINDINGS: LIVER: Size: Enlarged (hepatomegaly) Length: 23.9 cm Echotexture: Diffusely echogenic suggesting fatty infiltration Contour: Normal Lesions: None identified Elastography: EQI Med: 7.23 kPa EQI Med Christiano: 1.54 m/s IQR/Med: 23.5 %* GALLBLADDER: Surgically absent. COMMON BILE DUCT: Normal . PANCREAS: Normal Visualized portions of the right kidney are unremarkable. No right upper quadrant ascites. US/ABD Limited w/ Elastography IMPRESSION: Crfk-ck-fgetmxuk hepatic fibrosis. Hepatomegaly. Diffuse fatty infiltration of the liver. Reference Values: SRU <1.37 m/s (5.7kPa): No to mild fibrosis 1.37 m/s - 2.2 m/s: Moderate to severe fibrosis >2.2 m/s (15kPa): Significant fibrosis / cirrhosis METAVIR Score F2 or higher: 1.34 m/s (5.7kPa) F3 or higher: 1.55 m/s (7.3kPa) F4: 1.80 m/s (10kPa) * If the IQR/Med is >30%, the variance in the measurements is a large and the a ccuracy of the measurement may be in question. Reading Location: [place] [id number]
== END | disposition home or self-care (01) ==
LOC: US 08:17
PROVIDERS: PCP Internal Medicine; Referring Provider Internal Medicine Gastroenterology; Visit Provider Internal Medicine Gastroenterology
DX: K76.0 Fatty (change of) liver, not elsewhere classified (principal)
CPT/HCPCS: 76705; 76981

== ENCOUNTER → 2024-11-06 | Outpatient (CLI) | payer MEDICAID, SELFPAY | END | disposition home or self-care (01) | LOC: PSN 10:05 | PROVIDERS: PCP General Practice; Referring Provider Internal Medicine Critical Care Medicine; Visit Provider Internal Medicine Critical Care Medicine | DX: R06.02 Shortness of breath (principal); F17.210 Nicotine dependence, cigarettes, uncomplicated | CPT/HCPCS: 94060; 94726; 94729 ==

== ENCOUNTER → 2024-11-11 | Outpatient (CLI) | payer MEDICAID, SELFPAY ==
--- NOTE | 2024-11-11 07:45 | CT_ITS ---
PROCEDURE: LOW DOSE CT LUNG SCREENING 11/11/2024 REASON FOR EXAM: TOBACCO DEPENDENCY Current smoker, 3-4 packs per day times 36 years TECHNIQUE: LOW DOSE CT LUNG SCREENING Coronal and Sagittal reconstruction series were provided. One or more dose reduction techniques were used (e.g., Automated exposure control, adjustment of the mA and/or kV according to patient size, use of iterative reconstruction technique). REFERENCE LINK: [employer] Lung-RADS RADIATION DOSE SUMMARY: CTDlvol: 4.02 mGy DLP: 152 mGycm COMPARISON: None FINDINGS: Lung windows show the lungs to be normally expanded. There is poorly defined opacifications in the right middle lobe likely an infiltrate as there are air bronchograms present but an underlying process can not be excluded and follow-up is recommended to ensure complete resolution. There are scattered airspace opacifications in the lower lung bang suggestive of pneumonitis. No demonstrated effusion, no suspicious noncalcified mass or nodule. Limited soft tissue windows show a normal-appearing thyroid gland. There are scattered subcentimeter in short axis dimension axillary and mediastinal lymph nodes likely reactive. There are calcified coronary vessels. The thoracic aorta tapers normally. There is diffuse thickening and some distention of the esophagus suggesting achalasia and GE reflux but the overall appearance of the esophagus is concerning and further evaluation with endoscopy or upper GI study is recommended to exclude a sinister process. Bony structures show degenerative change. Limited cuts through the upper abdomen do not show a suspicious abnormality CT/Low Dose CT Lung Screening IMPRESSION: Airspace opacifications in the right middle lobe with air bronchograms likely i nfiltrate. However, follow-up is recommended to ensure complete resolution as a neoplastic process could have a similar appeara nce. Scattered airspace opacifications in the lower lung bang consistent with pneu monitis. No demonstrated effusion Abnormal appearing esophagus with mucosal thickening and distention may be due to achalasia and/or reflux. However, further evaluation with upper GI or endoscopy recommended to exclude a sinister process . Coronary artery calcification (CAC) is is present Lung-RADS Category: 0 INFLAMMATORY-INCOMPLETE. FINDINGS SUGGESTIVE OF AN INFLAM MATORY OR INFECTIOUS PROCESS. RECOMMEND 1-3 MONTH LDCT. Reading Location: [id number]
[2024-11-11 08:14] VITALS: PULSE 73; PULSE 75; PULSE 80; PULSE 84; PULSE 86; PULSE 87; O2SAT 84; O2SAT 90; O2SAT 92; O2SAT 93; O2SAT 95
--- NOTE | 2024-11-11 08:18 | CPS ---
Patient states that he wears 2 lpm O2 at home PRN. Started walk on room air, SpO2 89-92%. By the 2nd minute patient had walked about 120 ft. SpO2 88%, patient wanted to sit down, SpO2 continued to drop to 84%. Placed patient on 2lpm O2, SpO2 recovered to 96%. Patient did not want to walk anymore of the test due to foot pain, encouraged patient to at least walk the distance that he just walked, this time with the O2. Patient walked an additional 130+ feet on 2 lpm O2, SpO2 93% when he sat back down and it did not continue to decrease.
--- NOTE | 2024-11-14 09:54 | PCM.PSN.6M ---
PSN 6 Minute Walk Test 6 Minute Walk Test 6 Minute Walk Test: 6 Minute Walk Test PSN:6-Minute Walk Test Start: 11/11/24 08:14 Freq: Status: Active Protocol: [id number] Document 11/11/24 08:14 KIMMARY (Rec: 11/11/24 08:23 ANGIE [id number]) 6 Minute Walk Test Date Performed 11/11/24 Time Performed 08:00 Height 5 ft 8 in Weight: 315 lb Weight in Pounds 315.[address]: Mick Thakur Assistive device Walker used: Pre-test Oxygen Delivery Room Air Method Pulse Ox (%) 92 Pulse Rate (60-100 75 beats/min) Dyspnea Dao Scale ( 0 0-10) Exertion Dao Scale 6 (6-20) 1st minute Oxygen Delivery Room Air Method Pulse Ox (%) 90 Pulse Rate (60-100 84 beats/min) 2nd minute Oxygen Delivery Room Air Method Pulse Ox (%) 84 Pulse Rate (60-100 86 beats/min) 3rd minute Oxygen Flow Rate (L/ 2 min) (L/min) Oxygen Delivery Nasal Cannula Method Pulse Ox (%) 95 Pulse Rate (60-100 80 beats/min) 4th minute Oxygen Flow Rate (L/ 2 min) (L/min) Oxygen Delivery Nasal Cannula Method Pulse Ox (%) 93 Pulse Rate (60-100 87 beats/min) Dyspnea Dao Scale ( 1 0-10) Exertion Dao Scale 14 (6-20) Post-test Oxygen Flow Rate (L/ 2 min) (L/min) Oxygen Delivery Nasal Cannula Method Pulse Ox (%) 95 Pulse Rate (60-100 73 beats/min) Full Laps Walked 4 Partial Lap, Number 20 of Tiles Walked Total Distance 256 Walked (ft) 11/11/24 08:18 Cardiopulmonary Services by Leatha Akhtar Patient states that he wears 2 lpm O2 at home PRN. Started walk on room air, SpO2 89-92%. By the 2nd minute patient had walked about 120 ft. SpO2 88%, patient wanted to sit down, SpO2 continued to drop to 84%. Placed patient on 2lpm O2, SpO2 recovered to 96%. Patient did not want to walk anymore of the test due to foot pain, encouraged patient to at least walk the distance that he just walked, this time with the O2. Patient walked an additional 130+ feet on 2 lpm O2, SpO2 93% when he sat back down and it did not continue to decrease. Initialized on 11/11/24 08:18 - END OF NOTE Interpretation Interpretation: The patient ambulated 256 feet over the course of 4 minutes beginning on room air with the use of a walker. Pretesting oxygen saturation was noted to be 92% on room air. With ambulation, the patient desaturated to 84% at minute 2 of testing, requiring the initiation of 2 L/min of supplemental oxygen. Recommendations Recommendations: 2 L/min of supplemental oxygen should be utilized with exertion.
== END | disposition home or self-care (01) ==
LOC: CT 07:16
PROVIDERS: PCP General Practice; Referring Provider Internal Medicine Critical Care Medicine; Visit Provider Internal Medicine Critical Care Medicine
DX: Z12.2 Encounter for screening for malignant neoplasm of respiratory organs (principal); R06.02 Shortness of breath; F17.210 Nicotine dependence, cigarettes, uncomplicated
CPT/HCPCS: 71271; 94618

== ENCOUNTER 2025-02-28 05:31 | Day surgery (SDC) | payer MEDICAID, SELFPAY ==
--- NOTE | 2025-02-26 16:44 | PAT.ANESEVAL ---
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 When Was Last Pacemaker Check QUESTION #4 FULL TEXT: You/Your Family Experience fever (hyperthermia) with Anesthesia Last Oral Intake Last Oral intake: Last Oral Intake NPO since Meds taken in AM with sips of water? Meds patient instructed to take am of surgery PONV PONV - paring machine operator: PONV - paring machine operator Female No 02/26/25 14:35 HX of Motion Sickness Yes 02/26/25 14:35 HX of N/V After Surgery Yes 02/26/25 14:35 Non-Smoker No 02/26/25 14:35 Duration of Surgery greater No 02/26/25 14:35 than 60 minutes Number of Risk Factors 2 02/26/25 14:35 PONV Score Moderate Risk 02/26/25 14:35 Height & Weight Height & Weight: Anesthesia: Height & Weight Height 5 ft 8 in 11/27/24 06:12 Respiratory Assessment Respiratory Assessment - paring machine operator: Respiratory Tract Infection Hx - paring machine operator Hx Respiratory Tract Infection No 02/26/25 14:35 STOP Sleep Apnea STOP Sleep Apnea - paring machine operator: STOP Sleep Apnea - paring machine operator Hx Hypertension Yes 02/26/25 14:35 Hx Sleep Apnea No 02/26/25 14:35 CPAP BIPAP Do you snore loudly (louder No 02/26/25 14:35 than talking or can be heard Do you often feel tired/ Yes 02/26/25 14:35 fatigued/ sleepy during daytime? Has anyone observed you stop No 02/26/25 14:35 breathing during sleep? STOP Results Positive 02/26/25 14:35 QUESTION #5 FULL TEXT : Do you snore loudly (louder than talking or can be heard through closed doors)? 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 Tobacco Use Smoking Status Current every day smoker 02/26/25 14:35 Hx Tobacco Use Yes 02/26/25 14:35 Years Smoking 40 02/26/25 14:35 Packs Smoked per Day 0.5 02/26/25 14:35 Smoking Cessation Date was within the last 15 years Hx Smoking Cessation Date Hx Smoking Cessation Counseling Hematologic Medial History Hematologic Hx - paring machine operator: Hematologic Medical Hx - ham doctor Hx of Blood Transfusion No 02/26/25 14:35 Hx of Transfusion in last 3 No 02/26/25 14:35 Months Date of Last Transfusion (if within last 3 months) Ever experience any problems No 02/26/25 14:35 with transfusion(s)? Specify any problems Hx of Preganancy in last 3 N/A 02/26/25 14:35 Months Nurse Filling Out Transfusion [id number] 02/26/25 14:35 & Questions: Date: 02/26/25 02/26/25 14:35 Time: 14:35 02/26/25 14:35 Patient unable to answer at this time (ie. confused, unrespo /Reproduction History /Reproductive History - paring machine operator: /Reproductive Hx- paring machine operator Hx Now Gestational Age (in weeks): EDC: Hx Hx Para Hx Section SAB No 02/26/25 14:35 Does the father of the baby or his family experience fever w Father of the baby Malignant Hypertension history comment PFSH Medical History Stage 4 chronic kidney disease OCD (obsessive compulsive disorder) TIA (transient ischemic attack) History of ulceration Dependence on non-invasive ventilation Shortness of breath on exertion Wears glasses Loose, teeth History of Clostridium difficile infection Bipolar disorder Alcohol use Substance abuse Bruising Abrasion Rash Rheumatoid arthritis Prostate disease History of renal dialysis Anemia Fatty liver Restless legs Migraine headache Injury of head and neck Seizures History of diverticulitis On home oxygen therapy Cardiology follow-up encounter History of echocardiogram History of CHF (congestive heart failure) Gastric reflux [facility] resident MRSA infection Depression Insulin dependent diabetes mellitus Walker as ambulation aid Arthritis History of renal disease Injury of back Back pain Smoker Leg cramps History of pain when walking History of edema Hypertension History of heart attack Hypertension in stage 3 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 Personal history of transient ischemic attack (TIA), and cerebral infarction without residual deficits OCD (obsessive compulsive disorder) Hypokalemia Benign prostatic hyperplasia with lower urinary tract symptoms Constipation GERD (gastroesophageal reflux disease) Insomnia Anxiety Nicotine dependence, cigarettes, uncomplicated Atherosclerotic heart disease of [place] coronary artery without angina pectoris Chronic multifocal osteomyelitis, 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, intractable, without status epilepticus Hereditary and idiopathic neuropathy, unspecified Other mechanical complication of implanted electronic neurostimulator of spinal cord electrode (lead), subsequent encounter Hiatal hernia Cholecystectomy planned Neuropathy Kidney disease High cholesterol Heart disease Gastrointestinal problem COPD (chronic obstructive pulmonary disease) Diabetes Back problem Allergies Home Medications ?Medication ?Instructions ?Recorded ?Last Taken ?Type amlodipine 10 mg tablet 10 mg PO DAILY 09/01/21 10/04/23 History ascorbic acid (vitamin C) 500 mg 500 mg PO DAILY 09/01/21 10/03/23 History tablet aspirin 81 mg tablet,delayed 81 mg PO DAILY 09/01/21 10/03/23 History release (Adult Low Dose Aspirin) clonidine HCl 0.3 mg tablet 0.3 mg PO TID 09/01/21 10/04/23 History docusate sodium 100 mg tablet 100 mg PO DAILY 09/01/21 Unknown History doxycycline hyclate 100 mg tablet 100 mg PO BID 09/01/21 10/03/23 History finasteride 5 mg tablet 5 mg PO DAILY 09/01/21 10/03/23 History gemfibrozil 600 mg tablet 600 mg PO BID 09/01/21 10/03/23 History hydralazine 100 mg tablet 100 mg PO TID 09/01/21 10/03/23 History levetiracetam 500 mg tablet 500 mg PO BID 09/01/21 10/04/23 History (Keppra) loperamide 2 mg tablet 2 mg PO Q4H PRN PRN Diarrhea 09/01/21 Unknown History oxycodone 10 mg tablet 10 mg PO 4X/DAY 09/01/21 10/04/23 History polyethylene glycol 3350 17 4 g PO PRN PRN Constipation 09/01/21 Unknown History gram/dose oral powder (Miralax) sertraline 100 mg tablet 100 mg PO DAILY 09/01/21 10/04/23 History tamsulosin 0.4 mg capsule (Flomax) 0.4 mg PO BID 09/01/21 10/03/23 History cholecalciferol (vitamin D3) 125 125 mcg PO DAILY 12/07/22 10/04/23 History mcg (5,000 unit) capsule dapagliflozin propanediol 10 mg 10 mg PO DAILY 12/07/22 10/03/23 History tablet (Farxiga) bismuth subsalicylate 525 mg/15 mL 1,050 mg PO Q30-60M PRN indigestion 06/14/23 Unknown History oral suspension (Pepto-Bismol Max St) carvedilol 25 mg tablet 50 mg PO BID 06/14/23 10/04/23 History duloxetine 30 mg capsule,delayed 30 mg PO BID 06/14/23 10/04/23 History release flash glucose scanning reader #1 ea 06/14/23 Unknown Rx (FreeStyle Claude 2 Tennyson) flash glucose sensor (FreeStyle #2 ea 06/14/23 Unknown Rx Claude 2 Sensor kit) gabapentin 800 mg tablet 800 mg PO TID 06/14/23 10/04/23 History insulin aspart U-100 100 unit/mL 1 sliding scale dose subcut 06/14/23 10/03/23 History (3 mL) subcutaneous pen (Novolog .COMPLEX FlexPen U-100 Insulin aspart) ipratropium 0.5 mg-albuterol 3 mg 3 ml inhalation Q6H PRN PRN 06/14/23 Unknown History (2.5 mg base)/3 mL nebulization shortness of breath or wheezing soln melatonin 3 mg capsule 3 mg PO HS 06/14/23 10/03/23 History mirtazapine 7.5 mg tablet 7.5 mg PO QHS 06/14/23 10/03/23 History ondansetron HCl 4 mg tablet 4 mg PO Q8H PRN PRN nausea and 06/14/23 Unknown History vomiting rosuvastatin 40 mg tablet 40 mg PO QDAY 06/14/23 10/03/23 History clopidogrel 75 mg tablet (Plavix) 75 mg PO DAILY 10/03/23 10/03/23 History dulaglutide 3 mg/0.5 mL 3 mg (0.5 mL) subcut QWEEK #2 mL 12/13/23 Unknown Rx subcutaneous pen injector (Trulicity) budesonide-formoterol HFA 80 1 inh inhalation BID 10/17/24 Unknown History mcg-4.5 mcg/actuation aerosol inhaler (Symbicort) chlorthalidone 25 mg tablet 25 mg PO QDAY 10/17/24 Unknown History cyclobenzaprine 10 mg tablet 10 mg PO TID 10/17/24 Unknown History dextromethorphan-guaifenesin 10 10 ml PO Q4H PRN cough 10/17/24 Unknown History mg-100 mg/5 mL oral liquid (Rachael-Tussin DM) doxazosin 8 mg tablet 8 mg PO QDAY 10/17/24 Unknown History ergocalciferol (vitamin D2) 1,250 See Rx Instructions PO QDAY 10/17/24 Unknown History mcg (50,000 unit) capsule (Vitamin D2) famotidine 40 mg tablet 40 mg PO BID 10/17/24 Unknown History furosemide 40 mg tablet 40 mg PO QDAY 10/17/24 Unknown History glucagon 1 mg solution for 1 mg subcut Q20M PRN hypoglycemia 10/17/24 Unknown History injection (Glucagon Emergency Kit) insulin regular hum U-500 conc 500 15 unit subcut ACHS 10/17/24 Unknown History unit/mL subcutaneous soln (Humulin R U-500 (Concentrated) Insulin) losartan 25 mg tablet 25 mg PO QDAY 10/17/24 Unknown History potassium chloride 20 mEq 20 meq PO DAILY 10/17/24 Unknown History tablet,extended release isosorbide mononitrate 30 mg 90 mg PO QDAY 11/27/24 Unknown History tablet,extended release 24 hr loratadine 10 mg tablet 10 mg PO QDAY 11/27/24 Unknown History oxymetazoline 0.05 % nasal spray 1 spray intranasal Q4H PRN 11/27/24 Unknown History (Afrin (oxymetazoline)) Lactobacillus rhamnosus GG 10 1 cap PO DAILY 01/15/25 Unknown History billion cell capsule (Culturelle) chlorhexidine gluconate 0.12 % 15 ml buccal BID 01/15/25 Unknown History mouthwash (Paroex Oral Rinse) lanolin alcohols-mineral 1 applic topical DAILY PRN dry skin 01/15/25 Unknown History oil-w.petrolatum-ceresin topical cream (Eucerin topical cream) menthol 10 % topical cream 1 applic topical Q8H PRN PRN 01/15/25 Unknown History (Biofreeze (menthol)) arthritic pain pseudoephedrine-ibuprofen 30 1 cap PO Q6H PRN PRN cold symptoms 01/15/25 Unknown History mg-200 mg capsule (Advil Cold and Sinus) spironolactone 25 mg tablet 25 mg PO DAILY 01/15/25 Unknown History (Aldactone) Allergy/AdvReac Type Severity Reaction Status Date / Time acetaminophen Allergy Intermediate Other Verified 01/15/25 09:10 haloperidol (From Haldol) Allergy Intermediate Other Verified 01/15/25 09:10 hydrocodone Allergy Intermediate Other Verified 01/15/25 09:10 NSAIDS (Non-Steroidal Allergy Intermediate KIDNEY Verified 01/15/25 09:10 Anti-Inflamma ISSUES tetrahydrocannabinol (THC) Allergy Other Verified 01/15/25 09:10 Family History Other Arthritis Breast cancer CVA (cerebral vascular accident) Cancer Depression H/O transfusion of whole blood H/O ulcer disease Heart disease High cholesterol Hypertension Myocardial infarction Ovarian cancer Parkinson disease Skin cancer Uterine cancer Surgical History History of lumbar fusion History of knee replacement procedure of right knee History of esophagogastroduodenoscopy (EGD) History of cardiac catheterization Hx of total knee arthroplasty History of cholecystectomy Presence of coronary angioplasty implant and graft Hx of heart artery stent H/O spinal fusion H/O umbilical hernia repair H/O arthroscopic knee surgery Social History Smoking Status: Current every day smoker tobacco type: cigarettes alcohol intake: former substance use type: does not use what type of physical activity do you participate in: none and other Prior Cardiac Testing/Procedures Prior Cardiac Testing/Procedures: Echocardiogram (EF 55-60%) Addt'l Information Additional Findings: NSR on EKG Audit: Pertinent Findings Pertinent Findings Echo (EF%) pertinent findings: 55-60% Recommendation Anesthesia Recommendation Anesthesia recommendation: OPTIMIZED for anesthesia
[2025-02-28] VITALS (9 sets, daily range): BP systolic 119–130; BP diastolic 57–67; PULSE 62–63; RESP 16; TEMP 36.2–36.6; O2SAT 94–97; BMI 42.0
--- OUTSIDE RECORDS SUMMARY | 2025-02-28 05:37 | XMS RPT_ITS | CCD ---
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 Role Phone PROVIDER, UNKNOWN Unavailable Unavailable Bonyo, Benedict Unavailable Unavailable Amanambu, Chimezie Unavailable Unavailable PROVIDER, UNKNOWN Unavailable Unavailable Bonyo, Benedict Unavailable Unavailable Bonyo, Benedict Unavailable Unavailable Bonyo, Benedict Unavailable Unavailable KingaivTyrel barnes Unavailable Unavailable PROVIDER, UNKNOWN Unavailable Unavailable Erich, Castro S Unavailable Unavailable Erich, Castro S Unavailable Unavailable Payind, Gharanai A Unavailable Unavailable Payind, Gharanai A Unavailable Unavailable Noble Gauthier Unavailable Unavailable Erich, Castro S Unavailable Unavailable Erich, Castro S Unavailable Unavailable Malakooti, Tommie Unavailable Unavailable Erich, Castro S Unavailable Unavailable Erich, Castro S Unavailable Unavailable SERGRIKI BOUCHER Admitting Unavailable SERGRIKI BOUCHER Attending Unavailable TOÑITO YADAV Primary Care Unavailable JOSE HERRERA Admitting Unavailable JOSE HERRERA Attending Unavailable TOÑITO YADAV Primary Care Unavailable Unavailable Primary Care Provider UnavailJak Aviles Primary Care Provider [phone] Reji Ryder MD Primary Care Provider Unavailable Primary Care Provider UnavailANDREW Murphy MD Primary Care Physician Unavailshaylee COULTER MD, DR CUELLO Primary Care Physician Eugene LÓPEZ, Alvarez June Primary Care Provider SAMUEL CALLOWAY Attending Unavailable ALVAREZ GUARDADO Primary Care Unavailable SAMUEL CALLOWAY Attending Unavailable ALVAREZ GUARDADO Primary Care Unavailable DANE LÓPEZ, TOÑITO Diehl Attending Unavailable MARYLIN LÓPEZ, DR CUELLO Primary Care Unavailable DANE LÓPEZ, TOÑITO Diehl Attending Unavailable MARYLIN LÓPEZ, DR CUELLO Primary Care Unavailable DANE LÓPEZ, TOÑITO Diehl Admitting Unavailable DANE LÓPEZ, TOÑITO Diehl Consulting Unavailable DEEDEE LÓPEZ, ANS Consulting Unavailable BARBARA PRECIADO, MICKI Consulting Unavailable ESPERANZA LÓPEZ, DR QUICK Consulting Unavailab sanchez SIMPSON MD, ARABELLA Consulting Unavailable ROSALINA LÓPEZ, MARVA Consulting Unavailmike VELA MD, TOÑITO Diehl Attending Unavailable LAISHA LÓPEZ, SHANTAL Referring Unavailmike COULTER MD, DR CUELLO Primary Care Unavailable JAKE LÓPEZ, CHAD Arriaga Attending Unavailable MARYLIN LÓPEZ, DR CUELLO Primary Care Unavailable Marylin LÓPEZ, Dr. Cuello Primary Care Provider Dr. Stacey Coulter MD Referring Provider Daniel PRECIADO, Dr. Rome Attending Provider Daniel PRECIADO, Dr. Rome Referring Provider Dr. Stacey Coulter MD Primary Care Provider Daniel PRECIADO, Dr. Rome Attending Provider Daniel PRECIADO, Dr. Rome Referring Provider Dr. Stacey Coulter MD Referring Provider Dr. Sae Pepe DO Attending Provider Dr. Sae Pepe DO Referring Provider Dr. Lucian Cheung MD Primary Care Provider Dr. Stacey Coulter MD Primary Care Provider Dr. Sae Pepe DO Other Provider [phone] Jonatan LÓPEZ, Dr. Lucian June Referring Provider Adam RODRIGUEZC, Shamika Thomas Attending Provider MARYLIN LÓPEZ, DR CUELLO Primary Care Unavailable RACHEL LÓPEZ, DR MEDINA Attending Un available SEVERINO SUAREZ MD Consulting Unavailable JONATAN YADIEL Admitting Unavailable LUCIAN CHEUNG Attending Unavailable STACEY COULTER MD Consulting Unavailable CRICKET BRITO Referring Unavail able DUNDR YADIEL Primary Care Unavailable PROVIDER, UNKNOWN Consulting Unavailable PROVIDER, UNKNOWN Consulting Unavailable PROVIDER, UNKNOWN Consulting Unavailable STACEY COULTER MD Referring Unavailable KUMAR, HELADIO C Primary Care Unavailable STACEY COULTER MD Consulting Unavailable KUMAR, HELADIO C Admitting Unavailable KUMAR, HELADIO C Attending Unavailable PROVIDER, UNKNOWN Consulting Unavailable PROVIDER, UNKNOWN Consulting Unavailable PROVIDER, UNKNOWN Consulting Unavailable STACEY COULTER MD Consulting Unavailable STACEY COULTER MD Referring Unavailable BRI MORRIS Attending Unavailable BRI MORRIS Admitting Unavailable LEMBRI MAST D Primary Care Unavailable PROVIDER, UNKNOWN Consulting Unavailable PROVIDER, UNKNOWN Consulting Unavailable PROVIDER, UNKNOWN Consulting Unavailable EM MARTINEZ Attending Unavailable EM MARTINEZ Admitting Unavailable EM MARTINEZ Primary Care Unavailable STACEY COULTER MD Consulting Unavailable PROVIDER, UNKNOWN Consulting Unavailable PROVIDER, UNKNOWN Consulting Unavailable PROVIDER, UNKNOWN Consulting Unavailable EM MARTINEZ Admitting Unavailable EM MARTINEZ Primary Care Unavailable LUCIAN CHEUNG Consulting Unavailable EM MARTINEZ Attending Unavailable PROVIDER, UNKNOWN Consulting Unavailable EM MARTINEZ Attending Unavailable EM MARTINEZ Admitting Unavailable HANNAH, EM Primary Care Unavailable HANNAH, EM Primary Care Unavailable EM MARTINEZ Attending Unavailable EM MARTINEZ Admitting Unavailable STACEY COULTER MD Consulting Unavailable PROVIDER, UNKNOWN Consulting Unavailable PROVIDER, UNKNOWN Consulting Unavailable PROVIDER, UNKNOWN Consulting Unavailable STACEY COULTER MD Consulting Unavailable STACEY COULTER MD Referring Unavailable SHANTAL INTERIANO MD Attending UnavailSHANTAL Swartz MD Admitting UnavailSHANTAL Swartz MD Primary Care Unavailabl e PROVIDER, UNKNOWN Consulting Unavailable PROVIDER, UNKNOWN Consulting Unavailable PROVIDER, UNKNOWN Consulting Unavailable SAE PEPE Attending Unavailable SAE PEPE Admitting Unavailable SAE PEPE Primary Care Unavailable STACEY COULTER MD Consulting Unavailable PROVIDER, UNKNOWN Consulting Unavailable PROVIDER, UNKNOWN Consulting Unavailable PROVIDER, UNKNOWN Consulting Unavailable EM MARTINEZ Admitting Unavailable EM MARTINEZ Primary Care Unavailable EM MARTINEZ Attending Unavailable STACEY COULTER MD Consulting Unavailable PROVIDER, UNKNOWN Consulting Unavailable PROVIDER, UNKNOWN Consulting Unavailable PROVIDER, UNKNOWN Consulting Unavailable EM MARTINEZ Attending Unavailable EM MARTINEZ Admitting Unavailable MARTINEZ, EM Primary Care Unavailable LATOUF, STACEY LÓPEZ Consulting Unavailable PROVIDER, UNKNOWN Consulting Unavailable PROVIDER, UNKNOWN Consulting Unavailable PROVIDER, UNKNOWN Consulting Unavailable Friend, Wild Attending Unavailable Latouf, Butros Referring Unavailable Latouf, Butros Primary Care Unavailable Friend, Wild Attending Unavailable Friend, Wild Referring Unavailable Latouf, Butros Primary Care Unavailable Friend, Wild Attending Unavailable Dundr, Yadiel Primary Care Unavailable Brown, Sae Consulting Unavailable Brown, Sae Attending Unavailable Dundr, Yadiel Primary Care Unavailable Brown, Sae Referring Unavailable Brown, Sae Attending Unavailable Dundr, Yadiel Primary Care Unavailable Brown, Sae Referring Unavailable Dundr, Yadiel Primary Care Unavailable Dundr, Yadiel Referring Unavailable Shamika Medina Attending Unavailable Brown, Sae Attending Unavailable Latouf, Butros Referring Unavailable Latouf, Butros Primary Care Unavailable Latouf, Butros Primary Care Unavailable Friend, Wild Attending Unavailable Latouf, Butros Referring Unavailable Brown, Sae Referring Unavailable Dundr, Yadiel Primary Care Unavailable Brown, Sae Attending Unavailable Friend, Wild Attending Unavailable Friend, Wild Referring Unavailable Latouf, Butros Primary Care Unavailable Allergies Allergy Classification Reported Allergen(s) Allergy Type Date of Onset Reaction(s) Facility Acetaminophen (1 source) Acetaminophen Drug Allergy 10-22-19 20 [facility] Acetaminophen / HYDROcodone (2 sources) Acetaminophen / HYDROcodone Drug Allergy 11-30-19 08 Hives, Nausea And Vomiting [facility] Haloperidol (2 sources) Haloperidol Drug Allergy 12-06-19 17 Anxiety [facility] NSAIDs (1 source) Ibuprofen Drug Allergy 10-05-19 21 [facility] (12 sources) haloperidol Drug Allergy 11-11-19 17 Anxiety [facility] (2 sources) haloperidol Drug Allergy 11-11-19 17 [facility] (2 sources) HYDROcodone Drug Allergy 11-11-19 17 [facility] (1 source) Acetaminophen / HYDROcodone Drug Allergy [facility] (1 source) Haloperidol Drug Allergy [facility] (1 source) Bleach (Sodium Hypochlorite) Drug allergy (disorder) [facility] (17 sources) Acetaminophen; Translations: [acetaminophen] Drug Allergy 10-22-19 Unknown (qualifier value) [place] (11 sources) Acetaminophen / HYDROcodone Drug Allergy 11-30-19 08 Hives, Nausea And Vomiting [facility], [place] (8 sources) Ibuprofen; Translations: [ibuprofen] Drug Allergy 10-05-19 21 affects kidneys [facility] (13 sources) Haloperidol; Translations: [haloperidol] Drug Allergy 06-23-19 23 Unknown (qualifier value) [facility] (13 sources) HYDROcodone; Translations: [hydrocodone] Drug Allergy 11-11-19 17 Unknown (qualifier value) [facility] (2 sources) Acetaminophen Drug Allergy 10-22-19 [facility] (3 sources) fentaNYL; Translations: [fentanyl] Drug Allergy nausea, vomiting [facility] (6 sources) Nonsteroidal Anti-inflammatory Compounds Allergy to substance 10-04-19 KIDNEY ISSUES [facility] (1 source) dronabinol Drug Allergy 11-28-19 Other [facility] (1 source) Acetaminophen Drug Allergy [facility] (1 source) atorvastatin Drug Allergy [facility] (1 source) Codeine Drug Allergy [facility] (1 source) HYDROcodone Drug Allergy [facility] (1 source) Ibuprofen Drug Allergy [facility] (1 source) Morphine Drug Allergy [facility] (1 source) HALDOL DECANOATE Drug allergy (disorder) [facility] (1 source) 06/30/22 (+) MRSA WOUND; Translations: [06/30/22 (+) MRSA WOUND] Propensity to adverse reactions (disorder) [facility] (1 source) Marijuana Drug allergy (disorder) [facility] (1 source) Acetaminophen Drug Allergy 01-16-20 [facility] (1 source) dronabinol Drug Allergy 01-16-20 [facility] (1 source) NSAIDs Drug allergy (disorder) 01-16-20 [facility] Medications Current Medications Medication Drug Class(es) Dates Sig (Normalized) Sig (Original) acetaminophen 500 mg oral tablet (6 sources) take 2 tablets by mouth every six hours as needed for pain acetaminophen (TYLENOL) 500 MG tablet Take 1,000 mg by mouth every 6 hours as needed for Pain 0 Active Acetaminophen / HYDROcodone (1 source) Opioid Agonist Start: 05-24-2008 Vicodin 500 mg-5 mg oral tablet 1 tab(s), PO, q4hr, PRN, 12 tab(s), 0, 0 Start Date: 05/24/08 Status: Ordered Percocet (1 source) Opioid Agonist Start: 11-28-2007 Percocet 5/325 0, 0 Start Date: 11/28/07 Status: Ordered albuterol 0.833 mg/ml / ipratropium bromide 0.167 mg/ml inhalation solution (13 sources) Anticholinergic, beta2-Adrenergic Agonist Start: 06-14-2023 take 1 mL by inhalation every six hours as needed for wheezing Ipratropium-Albuter ol 0.5 mg-3 mg(2.5 mg base)/3 mL solution for nebulization Active 3 mL INHALATION EVERY 6 HOURS NEEDED as needed for shortness of breath or wheezing June 14, 2023 12:00am Start: 10-20-2022 take 1 dose by inhal ation every six hours albuterol-ipratropium 2.5 mg-0.5 mg/3 mL inhalation solution Dose = 3 mL, Inhalation, q6hr, # 60 EA, 0 Refill(s) Start Date: 10/20/22 Status: Ordered Medication Dispense Status: Completed Quantity: 60.0 Unit: EA Total Allowed Fills: 1 Fills Dispensed: 0 aluminum hydroxide 40 mg/ml / magnesium hydroxide 40 mg/ml / simethicone 4 mg/ml oral suspension (8 sources) aluminum & magne sium hydroxide-simethicone (Mylanta) 200-200-20 MG/5ML oral suspension Take by mouth every 6 hours as needed for indigestion or heartburn. Active take 30 mL by mouth three times daily as needed aluminum & magnesium hydroxide-simethico ne (MAALOX) 200-200-20 MG/5ML SUSP suspension Take 30 mLs by mouth 3 times daily as needed for Indigestion 0 Active amitriptyline hydrochloride 25 mg oral tablet (6 sources) Tricyclic Antidepressant take 1 tablet by mouth once daily amitriptyline (ELAVIL) 25 MG tablet Take 25 mg by mouth nightly 0 Active amLODIPine 10 mg oral tablet (19 sources) Dihydropyridine Calcium Channel Shae Start: 09-02-19 take 1 tablet by mouth once daily Amlodipine 10 mg tablet Active 10 mg PO DAILY September 01, 2021 12:00am Start: 04-07-2007 Norvasc 10 mg, PO, Daily, 0, 0 Start Date: 04/07/07 Status: Ordered take 1 tablet by hina once daily amLODIPine (NORVASC) 10 MG tablet Take 10 mg by mouth daily 0 Active amLODIPine 10 mg / atorvastatin 10 mg oral tablet (2 sources) Dihydropyridine Calcium Channel Shae, HMG-CoA Reductase Inhibitor take 1 tablet by mouth once daily amLODIPine-atorvastatin (Caduet) 10-10 MG tablet Take 1 tablet by mouth daily. Active amoxicillin 875 mg / clavulanate 125 mg oral tablet (1 source) Penicillin-class Antibacterial Start: 2024 Amoxicillin-Pot Clavulanate 875-125 mg tablet Active 1 {tbl} PO TWICE A DAY 14 0 November 27, 2024 12:00am ascorbic acid 500 mg oral capsule (20 sources) Vitamin C Start: 2022 ascorbic acid 500 mg oral capsule Dose : 500 mg = 1 cap(s), Oral, qDay, # 30 cap(s), 0 Refill(s) Start Date: 10/20/22 Status: Ordered Medication Dispense Status: Completed Quantity: 30.0 Unit: cap(s) Total Allowed Fills: 1 Fills Dispensed: 0 Start: 09-01-2021 take 1 tablet by mouth once da ivy Ascorbic Acid (Vitamin C) 500 mg tablet Active 500 mg PO DAILY September 01, 2021 12:00am take 1 tablet by mouth once rosaline y ascorbic acid (Vitamin C) 500 MG tablet Take 500 mg by mouth daily. Active Ascorbic Acid (V ITAMIN C) 250 MG tablet Take 125 mg by mouth daily 0 Active take 1 tablet by mouth once rosaline y Ascorbic Acid (VITAMIN C) 250 MG tablet Take 250 mg by mouth daily 0 Active aspirin 81 mg chewable tablet (20 sources) Platelet Aggregation Inhibitor, Nonsteroidal Anti-inflammatory Drug Start: 09-29-2023 End: 03-22-2025 [facility] Aspirin 81 mg oral tablet, (chewable) Dose : 81 mg = 1 tab(s), Oral, qDayM, # 180 tab(s), 2 Refill(s), Pharmacy: [facility], 177.8, cm, 09/27/23 11:04:00 EDT, Height, kg, 09/27/23 11:04:00 EDT, Dosing Weight Start Date: 09/29/23 Stop Date: 03/22/25 Status: Ordered Medication Dispense Status: Completed Quantity: 180.0 Unit: tab(s) Total Allowed Fills: 3 Fills Dispensed: 0 Start: 09-01-2021 Aspirin (Adult Low Dose Aspirin) 81 mg tablet,delayed release (DR/EC) Active 81 mg PO DAILY September 01, 2021 12:00am bismuth subsalicylate 35 mg/ml oral suspension (6 sources) Bismuth Start: 06-14-2023 Bismuth Subsalicylate (Pepto-Bismol Max St) 525 mg/15 mL suspension Active 1050 mg PO every 30 to 60 minutes as needed for indigestion June 14, 2023 12:00am do not exceed 8 doses in a 24 hour period 120 actuat budesonide 0.08 mg/actuat / formoterol fumarate 0.0045 mg/actuat metered dose inhaler (4 sources) Corticosteroid , beta2-Adrenerg ic Agonist Start: 10-17-2024 Budesonide-Formotero l (Symbicort) 80-4.5 mcg/actuation HFA aerosol inhaler Active 1 NMA INHALATION TWICE A DAY October 17, 2024 12:00am carvedilol 25 mg oral tablet (20 sources) alpha-Adrenerg ic Shae, beta-Adrenergi c Shae Start: 06-14-2023 take 2 tablets by mouth twice daily Carvedilol 25 mg tablet Active 50 mg PO TWICE A DAY June 14, 2023 12:00am Start: 10-20-2022 carvedilol 25 mg oral tablet Dose : 50 mg = 2 tab(s), Oral, BID, # 60 tab(s), 0 Refill(s) Start Date: 10/20/22 Status: Ordered Medication Dispense Status: Completed Quantity: 60.0 Unit: tab(s) Total Allowed Fills: 1 Fills Dispensed: 0 Start: 09-01-2021 End: 06-14-2023 take 2 tablets by mouth twice daily at mealtime Carvedilol 12.5 mg tablet Discontinued 25 mg PO TWICE A DAY September 01, 2021 12:00am June 14, 2023 9:56am must administer with a meal/food Start: 11-09-2007 Coreg 25 mg, P O, BID, 0, 0 Start Date: 11/09/07 Status: Ordered take 1 tablet by hina twice daily, then take 2 tablets by mouth, then take 3 tablets by mouth carvedilol (COREG) 12.5 MG tablet Take 12.5 mg by mouth 2 times daily Take with 25mg tab to =37.5mg 0 Active chlorhexidine gluconate 1.2 mg/ml mouthwash (5 sources) Start: 11-07-2024 take 1 dose by mouth twice daily Peridex 0.12% oral rinse liquid Dose = 1 tablespoonful(s), Oral, BID, # 473 mL, 0 Refill(s) Start Date: 11/07/24 Status: Ordered Medication Dispense Status: Completed Quantity: 473.0 Unit: mL Total Allowed Fills: 1 Fills Dispensed: 0 Start: 10-17-2024 End: 11-27-2024 Chlorhexidine Gluconate 0.12 % mouthwash Discontinued 15 mL MUCOUS MEM TWICE A DAY October 17, 2024 12:00am November 27, 2024 10:07am chlorthalidone 25 mg oral tablet (5 sources) Thiazide-like Diuretic Start: 06-17-2024 take 1 tablet by mouth once daily Chlorthalidone 25 mg tablet Active 25 mg PO daily October 17, 2024 12:00am cholecalciferol 0.125 mg oral capsule (20 sources) Vitamin D Start: 12-07-2022 take 1 capsule by mouth once daily Cholecalciferol (Vitamin D3) 125 mcg (5,000 unit) capsule Active 125 ug PO DAILY December 07, 2022 12:00am Start: 11-06-2019 take 2 tablets by mo [facility] once daily Cholecalciferol (VITAMIN D) 25 MCG TABS Take 2 tablets by mouth daily 60 tablet 2 11/06/2019 Active Cholecalciferol (Vitamin D3) 125 MCG (5000 UT) chewable tablet Chew. Active take 1 tablet by mouth once Chol ecalciferol (VITAMIN D3) 5000 units TABS Indications: Every Monday Take 1 tablet by mouth daily Indications: Every Monday 0 Active End: 11-06-2019 take 1 capsule by mouth once daily Cholecalciferol (VITAMIN D3) 50 MCG (2000 UT) CAPS Take 1 capsule by mouth daily 0 11/06/2019 Discontinued (Stop Taking at Discharge) cloNIDine hydrochloride 0.3 mg oral tablet (20 sources) Central alpha-2 Adrenergic Agonist Start: 10-20-2022 cloNIDine 0.3 mg oral tablet Dose : 0.3 mg = 1 tab(s), Oral, TID, # 60 tab(s), 0 Refill(s) Start Date: 10/20/22 Status: Ordered Medication Dispense Status: Completed Quantity: 60.0 Unit: tab(s) Total Allowed Fills: 1 Fills Dispensed: 0 Start: 09-01-2021 take 1 tablet by hina th three times daily Clonidine Hcl 0.3 mg tablet Active 0.3 mg PO THREE TIMES A DAY September 01, 2021 12:00am Start: 04-07-2007 clonidine 0.2 mg oral tablet 0.4 mg, 2 tab(s), PO, TID, 0 Start Date: 04/07/07 Status: Ordered End: 11-06-2019 take 1 tablet by mouth three times daily as needed for hypertension cloNIDine (CATAPRES) 0.1 MG tablet Take 0.1 mg by mouth 3 times daily as needed for High Blood Pressure (SBP 0 11/06/2019 Discontinued (Stop Taking at Discharge) clopidogrel 75 mg oral tablet (9 sources) P2Y12 Platelet Inhibitor Start: 09-29-2023 End: 03-22-2025 take 1 tablet by mouth once daily Clopidogrel (Plavix) 75 mg tablet Active 75 mg PO DAILY October 03, 2023 12:00am Start: 05-24-2008 Plavix 75 mg, PO, Daily, 0, 0 Start Date: 05/24/08 Status: Ordered cyclobenzaprine hydrochloride 10 mg oral tablet (20 sources) Muscle Relaxant Start: 10-13-2022 take 1 tablet by mouth three times daily Cyclobenzaprine 10 mg tablet Active 10 mg PO THREE TIMES A DAY October 17, 2024 11:06am Start: 09-01-2021 End: 10-17-2024 take 1 tablet by mouth four times daily Cyclobenzaprine 10 mg tablet Discontinued 10 mg PO 4 TIMES DAILY September 01, 2021 12:00am October 17, 2024 11:20am take 5 mg by mouth t hree times daily as needed for muscle spasms cyclobenzaprine (Flexeril) 10 MG tablet Take 5 mg by mouth 3 times daily as needed for muscle spasms. Active take 1 tablet by hina three times daily as needed for muscle spasms cyclobenzaprine (FLEXERIL) 10 MG tablet Take 10 mg by mouth 3 times daily as needed for Muscle spasms 0 Active dapagliflozin 10 mg oral tablet (13 sources) Sodium-Glucose Cotransporter 2 Inhibitor Start: 10-13-2022 take 1 tablet by mouth once daily Dapagliflozin Propanediol (Farxiga) 10 mg tablet Active 10 mg PO DAILY December 07, 2022 12:00am 12 hr dextromethorphan polistirex 6 mg/ml extended release suspension (2 sources) Uncompetitive Z-rhdtdm-P-aspartat e Receptor Antagonist, Sigma-1 Agonist take 60 mg by mouth twice daily dextromethorphan (Delsym) 30 MG/5ML liquid Take 60 mg by mouth 2 times daily. Active dextromethorphan hydrobromide 2 mg/ml / guaiFENesin 20 mg/ml oral solution (12 sources) Uncompetitive O-iplejf-A-aspartat e Receptor Antagonist, Sigma-1 Agonist Start: 10-17-2024 take 1 mL by mouth every four hours as needed Dextromethorphan-Gua ifenesin (Rachael-Tussin Dm) 10-100 mg/5 mL liquid Active 10 mL PO Q4H as needed October 17, 2024 12:00am dextromethorphan -guaiFENesin (Robitussin-DM) 10-100 MG/5ML liquid Take 10 mL by mouth. Active take 10 mL by mouth every six hours as needed for cough guaiFENesin-dextromethorphan (ROBITUSSIN DM) 100-10 MG/5ML syrup Take 10 mLs by mouth every 6 hours as needed for Cough 0 Active Valium (1 source) Benzodiazepine Start: 05-24-2008 Valium 5 mg, 0, 0, prn Start Date: 05/24/08 Status: Ordered diphenhydrAMINE hydrochloride 10 mg/ml / zinc acetate 1 mg/ml topical cream (7 sources) Histamine-1 Receptor Antagonist Start: 11-06-2019 diphenhydrAMINE -zinc acetate (BENADRYL) 1-0.1 % cream Apply topically 3 times daily as needed. 1 Tube 2 11/06/2019 Active docusate sodium 100 mg oral tablet (20 sources) Start: 09-01-2021 take 1 tablet by mouth once daily Docusate Sodium 100 mg tablet Active 100 mg PO DAILY September 01, 2021 12:00am take 1 capsule by mouth twice da ivy docusate sodium (Colace) 100 MG capsule Take 100 mg by mouth 2 times daily. Active take 1 capsule by mouth once fransisco ly docusate sodium (COLACE) 100 MG capsule Take 100 mg by mouth daily 0 Active doxazosin 8 mg oral tablet (5 sources) alpha-Adrenergic Shae Start: 10-17-2024 take 1 tablet by mouth once daily Doxazosin 8 mg tablet Active 8 mg PO daily October 17, 2024 12:00am doxycycline hyclate 100 mg oral tablet (20 sources) Tetracycline-class Drug Start: 09-01-2021 take 1 tablet by mouth twice daily Doxycycline Hyclate 100 mg tablet Active 100 mg PO TWICE A DAY September 01, 2021 12:00am End: 11-06-2019 take 1 capsule by mouth twice daily doxycycline hyclate (VIBRAMYCIN) 100 MG capsule Take 100 mg by mouth 2 times daily 0 Active take 1 capsule by mo ut twice daily doxycycline monohydrate (MONODOX) 100 MG capsule Indications: Osteomyelitis Take 100 mg by mouth 2 times daily 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 0 Active Dulaglutide (20 sources) GLP-1 Receptor Agonist Start: 12-13-2023 Dulaglu tide (Trulicity) 3 mg/0.5 mL pen injector Active 3 mg SC EVERY WEEK 2 December 13, 2023 12:00am 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 Start: 12-13-2023 Dulaglutide (T rulicity) 3 mg/0.5 mL pen injector Active 3 mg SC EVERY WEEK 2 December 13, 2023 12:00am Start: 08-29-2023 End: 12-13-2023 Dulaglutide (Trulicity) 1.5 mg/0.5 mL pen injector Discontinued 1.5 mg SC EVERY WEEK 2 3 August 29, 2023 2:00pm December 13, 2023 10:15am Start: 06-15-2023 End: 10-03-2023 Dulaglutide (Trulicity) 3 mg /0.5 mL pen injector Discontinued 3 mg SC EVERY WEEK 6 1 June 15, 2023 12:00am October 03, 2023 3:21pm 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 Start: 06-15-2023 End: 10-03-2023 Dulaglutide (Trulicity) 3 mg /0.5 mL pen injector Discontinued 3 mg SC EVERY WEEK 6 June 15, 2023 12:00am October 03, 2023 3:21pm Start: 06-14-2023 End: 06-15-2023 Dulaglutide (Trulicity) 4.5 mg/0.5 mL pen injector Discontinued 4.5 mg SC EVERY WEEK 6 June 14, 2023 12:00am June 15, 2023 4:40pm Diabetes mellitus Type 2 diabetes mellitus without complications Start: 06-14-2023 End: 06-15-2023 Dulaglutide (Trulicity) 4.5 mg/0.5 mL pen injector Discontinued 4.5 mg SC EVERY WEEK 6 June 14, 2023 12:00am June 15, 2023 4:40pm Start: 10-13-2022 Trulicity Pen 1.5 mg/0.5 mL subcutaneous solution Dose : 3 mg =, Subcutaneous, Monday, 0 Refill(s), 0.5 mL/Pen Start Date: 10/13/22 Status: Ordered Medication Dispense Status: Completed Total Allowed Fills: 1 Fills Dispensed: 0 Start: 07-11-2022 End: 06-14-2023 Dulaglutide (Trulicity) 3 mg /0.5 mL pen injector Discontinued 3 mg SC EVERY WEEK 2 3 July 11, 2022 12:00am June 14, 2023 10:37am 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 Start: 07-11-2022 End: 06-14-2023 Dulaglutide (Trulicity) 3 mg /0.5 mL pen injector Discontinued 3 mg SC EVERY WEEK 2 July 11, 2022 12:00am June 14, 2023 10:37am Start: 02-07-2022 End: 06-06-2022 Dulaglutide (Trulicity) 1.5 mg/0.5 mL pen injector Discontinued 1.5 mg SC FR February 07, 2022 6:15pm June 06, 2022 11:18am Start: 10-06-2021 End: 02-07-2022 Dulaglutide (Trulicity) 1.5 mg/0.5 mL pen injector Discontinued 1.5 mg SC EVERY WEEK 2 3 October 06, 2021 12:00am February 07, 2022 6:16pm Start: 09-01-2021 End: 10-06-2021 Dulaglutide (Trulicity) 0.75 mg/0.5 mL pen injector Discontinued 0.75 mg SC EVERY WEEK September 01, 2021 12:00am October 06, 2021 2:39pm DULoxetine 30 mg delayed release oral capsule (15 sources) Serotonin and Norepinephrine Reuptake Inhibitor Start: 06-14-2023 take 1 capsule by mouth twice daily Duloxetine 30 mg capsule,delayed release(DR/EC) Active 30 mg PO TWICE A DAY June 14, 2023 12:00am take 1 capsule by mouth once fransisco ly DULoxetine (CYMBALTA) 60 MG extended release capsule Take 60 mg by mouth daily 0 Active ergocalciferol 1.25 mg oral capsule (4 sources) Provitamin D2 Compound Start: 10-17-2024 Ergocalciferol (Vitamin D2) (Vitamin D2) 1,250 mcg (50,000 unit) capsule Active 0 PO daily October 17, 2024 12:00am 1250 orally daily; Mon and Th famotidine 40 mg oral tablet (12 sources) Histamine-2 Receptor Antagonist Start: 10-17-2024 take 1 tablet by mouth twice daily Famotidine 40 mg tablet Active 40 mg PO TWICE A DAY October 17, 2024 12:00am take 1 tablet by mouth once rosaline y famotidine (PEPCID) 40 MG tablet Take 40 mg by mouth daily 0 Active ferrous sulfate 325 mg delayed release oral tablet (7 sources) take 1 tablet by mouth twice daily ferrous sulfate (FE TABS 325) 325 (65 Fe) MG EC tablet Take 325 mg by mouth 2 times daily 0 Active fexofenadine hydrochloride 180 mg oral tablet (1 source) Histamine-1 Receptor Antagonist Start: 3 Tiffany 24 Hour Allergy oral tablet Dose : 180 mg = 1 tab(s), Oral, Daily, # 30 tab(s), 0 Refill(s) Start Date: 11/30/22 Status: Ordered finasteride 5 mg oral tablet (13 sources) 5-alpha Reductase Inhibitor Start: 2 take 1 tablet by mouth once daily Finasteride 5 mg tablet Active 5 mg PO DAILY September 01, 2021 12:00am Flash Glucose Scanning [place] (Freestyle Claude 2 [place]) misc (12 sources) Start: Flash Glucose Scanning [place] (Freestyle Claude 2 [place]) misc Active 0 .Route 1 0 June 14, 2023 10:37am Diabetes mellitus Type 2 diabetes mellitus without complications As directed Start: 06-14-2023 Flash Glucose Scanning [place] (Freestyle Claude 2 [place]) misc Active 0 .Route 1 June 14, 2023 10:37am As directed Start: 06-06-2022 End: 06-14-2023 Flash Glucose Scanning [place] r (Freestyle Claude 2 [place]) misc Discontinued 0 .Route 1 0 June 06, 2022 12:00am June 14, 2023 10:38am Diabetes mellitus Type 2 diabetes mellitus without complications As directed Start: 06-06-2022 End: 06-14-2023 Flash Glucose Scanning Re[place] r (Freestyle Claude 2 [place]) misc Discontinued 0 .Route 1 June 06, 2022 12:00am June 14, 2023 10:38am As directed Flash Glucose Sensor (Freestyle Claude 2 Sensor) kit (12 sources) Start: 06-14-2023 Flash Glucose Sensor (Freestyle Claude 2 Sensor) kit Active 0 .Route 2 5 June 14, 2023 10:37am Diabetes mellitus Type 2 diabetes mellitus without complications 1 sensor q 14 days Start: 06-14-2023 Flash Glucose Sensor (Freestyle Claude 2 Sensor) kit Active 0 .Route 2 June 14, 2023 10:37am 1 sensor q 14 days Start: 06-06-2022 End: 06-14-2023 Flash Glucose Sensor (Freest yle Claude 2 Sensor) kit Discontinued 0 .Route 2 June 06, 2022 12:00am June 14, 2023 10:38am Diabetes mellitus Type 2 diabetes mellitus without complications 1 sensor q 14 days Start: 06-06-2022 End: 06-14-2023 Flash Glucose Sensor (Freest yle Claude 2 Sensor) kit Discontinued 0 .Route 2 June 06, 2022 12:00am June 14, 2023 10:38am 1 sensor q 14 days fluticasone propionate 0.05 mg/actuat metered dose nasal spray (20 sources) Corticosteroid Start: 10-20-2022 take 1 dose nasal route twice daily fluticasone proprionate NASAL 50 mcg/ spray Dose = 1 spray(s), Nostril, each, BID, 0 Refill(s) Start Date: 10/20/22 Status: Ordered Medication Dispense Status: Completed Total Allowed Fills: 1 Fills Dispensed: 0 Start: 09-01-2021 End: 11-27-2024 take 50 ug nasal route twice daily Fluticasone Propionate (Allergy Relief (Fluticasone)) 50 mcg/actuation spray,suspension Discontinued 2 NMA INTRANASAL TWICE A DAY September 01, 2021 12:00am November 27, 2024 10:07am administer into each nostril take 1 spray(s) nasa l route once daily fluticasone (Flonase) 50 MCG/ACT nasal spray Administer 1 spray into each nostril daily. Shake gently. Before first use, prime pump. After use, clean tip and replace cap. Active take 1 spray(s) nasa l route twice daily fluticasone (FLONASE) 50 MCG/ACT nasal spray 1 spray by Each Nostril route 2 times daily 0 Active take 1 spray(s) nasa l route twice daily Fluticasone Propionate (FLONASE NA) Indications: To each nostril 1 spray by Nasal route 2 times daily Indications: To each nostril 0 Active furosemide 40 mg oral tablet (20 sources) Loop Diuretic Start: 10-17-2024 Furosemide (La six) 40 mg tablet Active 0 PO TWICE A DAY October 17, 2024 12:00am 40 orally twice a day; Start: 05-16-2024 End: 10-17-2024 Furosemide 40 mg tablet Acti ve 0 PO daily October 17, 2024 11:01am 40 orally daily; Monday, , Mon, Mon Start: 10-20-2022 End: 10-03-2023 take 1 tablet by mouth twice daily Furosemide 40 mg tablet Discontinued 40 mg PO TWICE A DAY December 07, 2022 12:00am October 03, 2023 3:09pm gabapentin 800 mg oral tablet (20 sources) Anti-epileptic Agent Start: 10-13-2022 take 1 tablet by mouth three times daily Gabapentin 800 mg tablet Active 800 mg PO THREE TIMES A DAY June 14, 2023 12:00am Start: 06-06-2022 End: 06-14-2023 take 2 capsules by mouth three times daily Gabapentin 400 mg capsule Discontinued 800 mg PO THREE TIMES A DAY June 06, 2022 11:02am June 14, 2023 9:58am Start: 09-01-2021 End: 06-06-2022 take 1 capsule by mouth three times daily Gabapentin 400 mg capsule Discontinued 400 mg PO THREE TIMES A DAY September 01, 2021 12:00am June 06, 2022 11:06am Start: 11-06-2019 End: 02-04-2020 take 1 capsule by mouth four times daily gabapentin (NEURONTIN) 400 MG capsule Take 1 capsule by mouth 4 times daily for 90 days. 120 capsule 2 11/06/2019 Active End: 11-06-2019 take 1 capsule by mouth twice daily gabapentin (NEURONTIN) 400 MG capsule Take 400 mg by mouth 2 times daily. 0 11/06/2019 Discontinued (Stop Taking at Discharge) gemfibrozil 600 mg oral tablet (13 sources) Peroxisome Proliferator Receptor alpha Agonist Start: 09-01-2021 take 1 tablet by mouth twice daily Gemfibrozil 600 mg tablet Active 600 mg PO TWICE A DAY September 01, 2021 12:00am Rachael-Tussin DM 10 mg-100 mg/5 mL oral liquid (1 source) Start: 11-07-2024 take 1 dose by mouth every four hours as needed Rachael-Tussin DM 10 mg-100 mg/5 mL oral liquid Dose = 10 mL, Oral, q4h, PRN Cold symptoms, 0 Refill(s) Start Date: 11/07/24 Status: Ordered Medication Dispense Status: Completed Total Allowed Fills: 1 Fills Dispensed: 0 Rachael-Tussin Expectorant 100 mg/5 mL oral liquid (3 sources) Start: 10-20-2022 take 1 dose by mouth every four hours as needed Rachael-Tussin Expectorant 100 mg/5 mL oral liquid Dose : 200 mg = 10 mL, Oral, q4h, PRN Cough, 0 Refill(s) Start Date: 10/20/22 Status: Ordered glucagon (rdna) 1 mg injection (15 sources) Antihypoglycemic Agent Start: 10-17-2024 Glucagon (Glucagon Emergency Kit (Human)) 1 mg recon soln Active 1 mg SC Q20M as needed October 17, 2024 12:00am until target blood sugar attained Start: 06-14-2023 End: 10-03-2023 Glucagon (Glucagon Emergency Kit (Human)) 1 mg recon soln Discontinued 1 mg SC Q20M as needed June 14, 2023 12:00am October 03, 2023 3:21pm until target blood sugar attained Start: 10-20-2022 glucagon 1 mg injection Dose : 1 mg = 1 EA, Subcutaneous, AsDirected, PRN for low blood sugar, # 1 EA, 1 Refill(s) Start Date: 10/20/22 Status: Ordered Medication Dispense Status: Completed Quantity: 1.0 Unit: EA Total Allowed Fills: 1 Fills Dispensed: 0 Start: 10-20-2022 glucagon 1 mg injection Dose : 1 mg = 1 EA, Subcutaneous, AsDirected, PRN for low blood sugar, # 1 EA, 1 Refill(s) Start Date: 10/20/22 Status: Ordered hydroCHLOROthiazide 12.5 mg / losartan potassium 100 mg oral tablet (2 sources) Thiazide Diuretic, Angiotensin 2 Receptor Shae take 1 tablet by mouth once daily losartan-hydroCHLOROthiazide (Hyzaar) 100-12.5 MG tablet Take 1 tablet by mouth daily. Active hydrocortisone 10 mg/ml topical cream (8 sources) Corticosteroid Star t: 10-18 20 hydrocortisone-aloe 1 % CREA cream Indications: Eczema Apply 0.01 g topically 4 times daily as needed (Eczema) Indications: Eczema 1 Tube 2 11/06/2019 Active hydrocortisone 1 % cream Indications: Eczema Apply 1 each topically 4 times daily as needed Indications: Eczema Apply topically to bilateral arms 4 times daily as needed. 0 Active hydrOXYzine hydrochloride 25 mg oral tablet (14 sources) Antihistamine take 1 tablet by mouth twice daily as needed hydrOXYzine (ATARAX) 25 MG tablet Take 25 mg by mouth 2 times daily as needed 0 Active take 1 tablet by hina three times daily as needed hydrOXYzine (ATARAX) 25 MG tablet Take 25 mg by mouth 3 times daily as needed for Itching 0 Active End: 11-06-2019 take 1 capsule by mouth three times daily hydrOXYzine (VISTARIL) 25 MG capsule Take 25 mg by mouth 3 times daily 0 11/06/2019 Discontinued (Stop Taking at Discharge) Motrin (1 source) Nonsteroidal Anti-inflammatory Drug Start: 05-29-2008 Motrin 800 mg, 0, 0 Start Date: 05/29/08 Status: Ordered Lantus (1 source) Insulin Analog Start: 05-24-2008 Lantus 0, 0, 1 4-22 units QHS SQ Start Date: 05/24/08 Status: Ordered insulin aspart, human 100 unt/ml injectable solution (20 sources) Insulin Analog Start: 06-22-2023 NovoLOG 100 units/mL injectable solution See Instructions, before meals and hs, 0 Refill(s) Start Date: 06/22/23 Status: Ordered Medication Dispense Status: Completed Total Allowed Fills: 1 Fills Dispensed: 0 Start: 06-14-2023 Insulin Aspart U-100 (Novolog Flexpen U-100 Insulin) 100 unit/mL (3 mL) insulin pen Active 1 sliding scale dose SC .COMPLEX June 14, 2023 12:00am 1 sliding scale dose subcutaneously With meals and @HS; 201-250 4units 251-300 8units 301-350 12units 351-400 16units Start: 02-07-2022 End: 06-06-2022 Insulin Aspart U-100 (Novolo g U-100 Insulin Aspart) 100 unit/mL Solution Discontinued 0 U SC THREE TIMES A DAY February 07, 2022 1:00am June 06, 2022 11:20am SLIDING SCALE Start: 09-01-2021 End: 10-06-2021 Insulin Aspart U-100 (Novolo g U-100 Insulin Aspart) 100 unit/mL solution Discontinued 1 sliding scale dose SC Use as Directed September 01, 2021 12:00am October 06, 2021 3:06pm [id number]-[id number], 4u-[id number], [id number]-[id number], [id number]-[id number] Start: 09-01-2021 End: 10-06-2021 Insulin Aspart U-100 (Novolo g Flexpen U-100 Insulin) 100 unit/mL (3 mL) insulin pen Discontinued 32 U SC THREE TIMES A DAY September 01, 2021 12:00am October 06, 2021 3:06pm Insulin Aspart ( NovoLOG) 100 UNIT/ML solution Inject as directed. Active insulin aspart ( NOVOLOG) 100 UNIT/ML injection vial Indications: per sliding scale: BGT 0-150 give 0 units; 151-200 give 2 units; 201-250 give 4 units; 251-300 give 6 units; 301-350 give 8 units; 351-400 give 10 units Inject 1 Units into the skin 4 times daily (before meals and nightly) Indications: per sliding scale: BGT 0-150 give 0 units; 151-200 give 2 units; 201-250 give 4 units; 251-300 give 6 units; 301-350 give 8 units; 351-400 give 10 units 0 Active insulin aspart ( NOVOLOG) 100 UNIT/ML injection vial Inject 25 Units into the skin 4 times daily 0 Active insulin aspart ( NOVOLOG FLEXPEN) 100 UNIT/ML injection pen Inject 5 Units into the skin 3 times daily (before meals) 0 Active 3 ml insulin, regular, human 500 unt/ml pen injector (20 sources) Insulin Start: 10-17-2024 Insulin Regula r Hum U-500 Conc (Humulin R U-500 (Conc) Kwikpen) 500 unit/mL (3 mL) insulin pen Active 110 U SC WITH LUNCH October 17, 2024 11:13am Start: 10-17-2024 Insulin Regula r Hum U-500 Conc (Humulin R U-500 (Conc) Insulin) 500 unit/mL solution Active 100 U SC WITH BREAKFAST October 17, 2024 11:12am Diabetes mellitus Type 2 diabetes mellitus with hyperglycemia snf (current) use of insulin Start: 10-03-2023 Insulin Regula r Hum U-500 Conc (Humulin R U-500 (Conc) Kwikpen) 500 unit/mL (3 mL) insulin pen Active 125 U SC AT BEDTIME October 03, 2023 12:00am Start: 10-03-2023 End: 10-17-2024 Insulin Regular Hum U-500 Co nc (Humulin R U-500 (Conc) Kwikpen) 500 unit/mL (3 mL) insulin pen Discontinued 115 U SC WITH LUNCH October 03, 2023 12:00am October 17, 2024 11:20am Start: 06-14-2023 End: 10-17-2024 Insulin Regular Hum U-500 Co nc (Humulin R U-500 (Conc) Insulin) 500 unit/mL solution Discontinued 105 U SC WITH BREAKFAST June 14, 2023 10:00am October 17, 2024 11:20am 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 Start: 10-20-2022 HumuLIN R Kwik PEN (CONCENTRATED) insulin 500 units/mL 3 mL 110 unit(s), Subcutaneous (INT), acBreakfast, 144.7 Start Date: 09/26/23 Status: Ordered Medication Dispense Status: Completed Total Allowed Fills: 1 Fills Dispensed: 0 Start: 02-23-2022 End: 06-14-2023 Insulin Regular Hum U-500 Co nc (Humulin R U-500 (Conc) Insulin) 500 unit/mL solution Discontinued 0 SC DAILY 40 3 July 27, 2022 9:50am June 14, 2023 10:13am Diabetes mellitus Type 2 diabetes mellitus with hyperglycemia snf (current) use of insulin breakfast 160 u, lunch 160 u, supper 160 u subcutaneously daily; Start: 02-07-2022 End: 02-23-2022 Insulin Regular Hum U-500 Co nc (Humulin R U-500 (Conc) Kwikpen) 500 unit/mL (3 mL) insulin pen Discontinued 150 U SC TWICE A DAY February 07, 2022 6:15pm February 23, 2022 2:32pm Start: 02-07-2022 End: 02-23-2022 Insulin Regular Hum U-500 Co nc (Humulin R U-500 (Conc) Insulin) 500 unit/mL Solution Discontinued 165 U SC DAILY February 07, 2022 1:00am February 23, 2022 2:32pm Start: 10-06-2021 End: 02-07-2022 Insulin Regular Hum U-500 Co nc (Humulin R U-500 (Conc) Kwikpen) 500 unit/mL (3 mL) insulin pen Discontinued 150 U SC .TIDCM 81 1 October 06, 2021 12:00am February 07, 2022 6:16pm Diabetes mellitus Type 2 diabetes mellitus without complications Start: 10-04-2020 End: 10-04-2020 insulin regular (HUMULIN R;N OVOLIN R) injection 10 Units concentrated ins ulin regular (Humulin R) 500 UNIT/ML patient supplied pump Inject under the skin continuous. Active 24 hr isosorbide mononitrate 30 mg extended release oral tablet (20 sources) Nitrate Vasodilator Start: 11-27-2024 Isosorbide Mononitrate 30 mg tablet extended release 24 hr Active 90 mg PO daily November 27, 2024 12:00am Start: 09-01-2021 End: 11-27-2024 take 1 tablet by mouth once daily, then take 1 tablet by mouth every twenty-four hours Isosorbide Mononitrate 60 mg tablet extended release 24 hr Discontinued 60 mg PO DAILY September 01, 2021 12:00am November 27, 2024 10:03am Start: 05-24-2008 Imdur 30 mg, P O, Daily, 0, 0 Start Date: 05/24/08 Status: Ordered ISOSORBIDE MONON ITRATE ER PO Take by mouth 0 Active levETIRAcetam 500 mg oral tablet (20 sources) Start: 09-01-2021 take 1 tablet by mouth twice daily Levetiracetam (Keppra) 500 mg tablet Active 500 mg PO TWICE A DAY September 01, 2021 12:00am loperamide hydrochloride 2 mg oral capsule (19 sources) Opioid Agonist Start: 10-20-2022 loperamide 2 m g oral capsule Dose : 2 mg = 1 cap(s), Oral, q4h, PRN for loose stool, 0 Refill(s) Start Date: 10/20/22 Status: Ordered Medication Dispense Status: Completed Total Allowed Fills: 1 Fills Dispensed: 0 Start: 09-01-2021 take 1 tablet by hina every four hours as needed for diarrhea Loperamide 2 mg tablet Active 2 mg PO EVERY 4 HOURS NEEDED as needed for Diarrhea September 01, 2021 12:00am loratadine 10 mg oral tablet (1 source) Start: 11-27-2024 take 1 tablet by mouth once daily Loratadine 10 mg tablet Active 10 mg PO daily November 27, 2024 12:00am losartan potassium 25 mg oral tablet (14 sources) Angiotensin 2 Receptor Shae Start: 10-17-2024 take 1 tablet by mouth once daily Losartan 25 mg tablet Active 25 mg PO daily October 17, 2024 12:00am Start: 10-13-2022 losartan 100 m g oral tablet Dose : 100 mg = 1 tab(s), Oral, qDay, # 30 tab(s), 0 Refill(s) Start Date: 10/13/22 Status: Ordered Start: 09-01-2021 End: 10-03-2023 take 4 tablets by mouth once daily Losartan (Cozaar) 25 mg tablet Discontinued 100 mg PO DAILY September 01, 2021 12:00am October 03, 2023 3:16pm melatonin 3 mg oral tablet (13 sources) Start: 11-07-2024 melatonin 3 mg oral tablet Dose : 3 mg = 1 tab(s), Oral, qHS, PRN as needed for insomnia, # 60 tab(s), 0 Refill(s) Start Date: 11/07/24 Status: Ordered Medication Dispense Status: Completed Quantity: 60.0 Unit: tab(s) Total Allowed Fills: 1 Fills Dispensed: 0 Start: 06-14-2023 take 1 capsule by [facility] at bedtime Melatonin 3 mg capsule Active 3 mg PO BEDTIME June 14, 2023 12:00am Start: 10-20-2022 melatonin 3 mg oral tablet Dose : 3 mg = 1 tab(s), Oral, qHS, PRN as needed for insomnia, # 60 tab(s), 0 Refill(s) Start Date: 10/20/22 Status: Ordered menthol 0.04 mg/mg topical gel (11 sources) Start: 11-07-2024 apply 1 dose topical ly four times daily as needed for pain Biofreeze 4% topical gel Apply 1 nurys, Topical, QID, PRN as needed for pain, # 118 mL, 0 Refill(s), Gel, 144.7 Start Date: 11/07/24 Status: Ordered Medication Dispense Status: Completed Quantity: 118.0 Unit: mL Total Allowed Fills: 1 Fills Dispensed: 0 Start: 10-20-2022 Biofreeze 4% t opical gel Apply 1 nurys, Topical, TID, PRN as needed for pain, # 118 mL, 0 Refill(s), Gel, 148 Start Date: 10/20/22 Status: Ordered Menthol, Topical Analgesic, (BIOFREEZE) 4 % GEL Apply topically as needed 0 Active mirtazapine 7.5 mg oral tablet (19 sources) Start: 10-13-2022 take 1 tablet by mouth at bedtime Mirtazapine 7.5 mg tablet Active 7.5 mg PO AT BEDTIME June 14, 2023 12:00am Start: 09-01-2021 End: 06-14-2023 take 1 tablet by mouth at bedtime Mirtazapine 15 mg tablet Discontinued 15 mg PO AT BEDTIME September 01, 2021 12:00am June 14, 2023 10:03am mupirocin 0.02 mg/mg topical ointment (9 sources) RNA Synthetase Inhibitor Antibacterial Start: 10-20-2022 mupirocin 2% topical ointment Apply 1 nurys, Topical, TID, APPLY TO BACK, # 15 gram(s), 0 Refill(s), Ointment, 148 Start Date: 10/20/22 Status: Ordered Start: 11-06-2019 End: 11-13-2019 mupirocin (BACTROBAN) 2 % oi ntment Apply topically 3 times daily. 1 Tube 1 11/06/2019 11/13/2019 Active mupirocin (BACTR OBAN) 2 % ointment Indications: Apply to lumbar wound, cover with adaptic and gauze daily Apply 1 each topically daily Indications: Apply to lumbar wound, cover with adaptic and gauze daily Apply topically 3 times daily. 0 Active Mylanta Coat and Cool 1200 mg-270 mg-80 mg/10 mL oral suspension (2 sources) Start: 10-20-2022 take 1 dose by mouth twice daily as needed Mylanta Coat and Cool 1200 mg-270 mg-80 mg/10 mL oral suspension Dose = 10 mL, Oral, BID, PRN as needed for indigestion, # 355 mL, 0 Refill(s) Start Date: 10/20/22 Status: Ordered nicotine 2 mg chewing gum (6 sources) Cholinergic Nicotinic Agonist Start: 11-06-2019 apply 1 dose transdermal route once daily nicotine (NICODERM CQ) 14 MG/24HR Place 1 patch onto the skin daily 30 patch 3 11/06/2019 Active Start: 11-06-2019 nicotine polac rilex (NICORETTE) 2 MG gum Take 1 each by mouth as needed for Smoking cessation 110 each 3 11/06/2019 Active omeprazole 20 mg delayed release oral capsule (6 sources) Proton Pump Inhibitor take 1 capsule by mouth once daily omeprazole (PRILOSEC) 20 MG delayed release capsule Take 20 mg by mouth daily 0 Active ondansetron 4 mg oral tablet (20 sources) Serotonin-3 Receptor Antagonist Start: take 1 tablet by mouth every eight hours as needed for nausea and vomiting Ondansetron Hcl 4 mg tablet Active 4 mg PO EVERY 8 HOURS NEEDED as needed for nausea and vomiting June 14, 2023 12:00am Start: 10-20-2022 End: 11-06-2019 ondansetron 4 mg oral tablet Dose : 4 mg = 1 tab(s), Oral, q8h, PRN Nausea/Vomiting, # 15 tab(s), 0 Refill(s) Start Date: 10/20/22 Status: Ordered Start: 09-01-2021 End: 12-07-2022 Ondansetron Hcl 4 mg tablet Discontinued 4 mg PO NEEDED as needed for Nausea September 01, 2021 12:00am December 07, 2022 9:49am Start: 10-04-2020 End: 10-04-2020 ondansetron (ZOFRAN) injecti on 4 mg oxyCODONE hydrochloride 10 mg oral tablet (19 sources) Opioid Agonist Start: 09-01-2021 take 1 tablet by mouth four times daily Oxycodone 10 mg tablet Active 10 mg PO 4 TIMES DAILY 0 September 01, 2021 12:00am oxyCODONE ER (Ox yCONTIN) 40 MG 12 hr tablet Do not crush, chew, or split. Active oxyCODONE ER (Ox yCONTIN) 40 MG 12 hr tablet Do not crush, chew, or split. 0 Active oxyCODONE (ROXIC ODONE) 5 MG immediate release tablet Take 10 mg by mouth every 6 hours as needed for Pain . 0 Active oxymetazoline hydrochloride 0.5 mg/ml nasal spray (1 source) Start: 11-27-2024 Oxymetazoline (Afrin (Oxymetazoline)) 0.05 % spray,non-aerosol Active 1 NMA INTRANASAL EVERY 4 HOURS NEEDED November 27, 2024 12:00am Pepto-Bismol Diarrhea 525 mg/10 mL oral suspension (2 sources) Start: 09-26-2023 take 1 dose by mouth every hour as needed Pepto-Bismol Diarrhea 525 mg/10 mL oral suspension Dose : 1,575 mg = 30 mL, Oral, q1h, PRN Indigestion, 0 Refill(s) Start Date: 09/26/23 Status: Ordered Medication Dispense Status: Completed Total Allowed Fills: 1 Fills Dispensed: 0 Start: 09-26-2023 take 1 dose by mouth every hour as needed Pepto-Bismol Diarrhea 525 mg/10 mL oral suspension Dose : 1,575 mg = 30 mL, Oral, q1h, PRN Indigestion, 0 Refill(s) Start Date: 09/26/23 Status: Ordered polyethylene glycol 3350 65228 mg powder for oral solution (13 sources) Osmotic Laxative Start: 10-20-2022 take 17 doses by mouth once daily as needed for constipation MiraLax oral powder for reconstitution Dose : 17 gram(s) =, Oral, qDay, PRN Constipation, # 238 gram(s), 0 Refill(s) Start Date: 10/20/22 Status: Ordered Medication Dispense Status: Completed Quantity: 238.0 Unit: g Total Allowed Fills: 1 Fills Dispensed: 0 Start: 09-01-2021 Polyethylene G lycol 3350 (Miralax) 17 gram/dose powder Active 4 g PO NEEDED as needed for Constipation September 01, 2021 12:00am polyethylene gly col, PEG, 3350 (MiraLax) 17 g packet Take by mouth. Active polyethylene gly col, PEG, 3350 (MiraLax) 17 g packet Take by mouth. 0 Active potassium chloride 20 meq extended release oral tablet (20 sources) Start: 10-17-2024 take 2 tablets by mouth four times daily Potassium Chloride 20 mEq tablet extended release Active 40 meq PO 4 TIMES DAILY October 17, 2024 11:16am Start: 06-17-2024 potassium chlo ride 20 mEq oral tablet, extended release Dose : 40 mEq = 2 tab(s), Oral, BID, 0 Refill(s) Start Date: 06/17/24 Status: Ordered Medication Dispense Status: Completed Total Allowed Fills: 1 Fills Dispensed: 0 Start: 05-16-2024 End: 10-17-2024 take 1 tablet by mouth three times daily Potassium Chloride 20 mEq tablet extended release Discontinued 20 meq PO THREE TIMES A DAY May 16, 2024 1:00am October 17, 2024 11:20am Start: 09-01-2021 End: 12-07-2022 take 2 capsules by mouth once daily Potassium Chloride 10 mEq capsule, extended release Discontinued 20 meq PO DAILY September 01, 2021 12:00am December 07, 2022 9:49am potassium chlori de (MICRO-K) 10 MEQ extended release capsule Take 20 mEq by mouth daily 0 Active POTASSIUM CHLORI DE PO Take by mouth 0 Active rosuvastatin calcium 40 mg oral tablet (20 sources) HMG-CoA Reductase Inhibitor Start: 10-13-2022 take 1 tablet by mouth once daily Rosuvastatin 40 mg tablet Active 40 mg PO daily June 14, 2023 12:00am Start: 09-01-2021 End: 06-14-2023 Rosuvastatin 20 mg tablet Discontinued 40 mg PO DAILY September 01, 2021 12:00am June 14, 2023 10:10am give with 10mg tablet for total 30mg Rosuvastatin Carlos cium 10 MG CPSP Take by mouth 0 Active End: 11-06-2019 take 1 tablet by mouth once daily rosuvastatin (CRESTOR) 10 MG tablet Take 10 mg by mouth daily 0 11/06/2019 Discontinued (Stop Taking at Discharge) Rosuvastatin Calcium 10 MG CPSP (2 sources) Rosuvastatin Carlos cium 10 MG CPSP Take by mouth 0 Active sertraline 100 mg oral tablet (20 sources) Serotonin Reuptake Inhibitor Start: 10-20-2022 sertraline 100 mg oral tablet Dose : 100 mg = 1 tab(s), Oral, qDay, # 30 tab(s), 0 Refill(s) Start Date: 06/22/23 Status: Ordered Medication Dispense Status: Completed Quantity: 30.0 Unit: tab(s) Total Allowed Fills: 1 Fills Dispensed: 0 Start: 09-01-2021 Sertraline 100 mg tablet Active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 Surgical Pathology Rep [facility] 11-13-2024 Final Surgical Pathology Report . Pathology Reports Accession: Collected Date/Time: Received Date/Time: Pathologist: [id number] 11/07/2024 10:30 EDT 11/07/2024 11:10 EDT MD AJ APPIAH Final Surgical Pathology Report DIAGNOSIS: A. 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 - TUBULAR ATROPHY AND INTERSTITIAL FIBROSIS, ROUGHLY MODERATE. - ARTERIOSCLEROSIS, MODERATE TO SEVERE AND ARTERIOLAR HYALINOSIS, SEVERE. SPECIMEN PROCESSED AND INTERPRETATION RENDERED BY [facility] NEPHROPATHOLOGY SERVICE. FULL REPORT SCANNED INTO EMR. CLINICAL INFORMATION: NEPHROPATHY Procedure: IMAGE GUIDED RENAL BIOPSY SPECIMEN: A LEFT KIDNEY GROSS DESCRIPTION: All parts labelled with patient name and [id number] received in saline and designated left kidney are three villarreal extremely friable needle cores ranging in size from 1.0 x 0.1 x 0.1 cm to 1.5 x 0.1 x 0.1 cm. The ends of all three needle cores are submitted in glutaraldehyde. Two needle cores are submitted in Chucky's media and one is submitted in formalin. This is sent for special studies. Gross only.. TS-1 Katie Reed, Pathologists ' Varnish Finisher (ASCP) Performed by Katie Reed MICROSCOPIC DESCRIPTION: The microscopic examination is performed, except in the case of Gross Only. Verified by Pathology Report verified by [facility] AJ APPIAH MD Sign out Date: 11/13/2024 16:36 Performing Lab: [facility], [address] [place] [address] States Pathology Dept Disclaimer If ancillary studies were utilized, the following Laboratory Developed Test (LDT) disclaimer will apply: Under CLIA requirements, [facility] Pathology Laboratory is qualified to perform high complexity testing. For all ancillary stains, positive and negative controls stain appropriately. Performance characteristics of immunohistochemical and chromogenic in-situ hybridization tests have been determined by [facility] Pathology Laboratory. These tests are used for clinical purposes, They should not be regarded as investigational or for research. Normal [facility] Low Dose CT Lung Screeningon 11-11-[address] Lung Screening [facility] Imaging Services [address] [place] [id number] Lung Screening MR#: [id number] Acct: [id number] Name: CHITO WELLS Rep #: [id number] : 1965 M 58 From: Harpreet Jaquez MD PCP: Dr. Lucian Cheung MD Status: [facility] CLI Study: Low Dose CT Lung Screening Date of Exam: 11/11 Exam# [id number] Ordering Dr: Sae Pepe DO PROCEDURE: LOW DOSE CT LUNG SCREENING 11/11/2024 REASON FOR EXAM: TOBACCO DEPENDENCY Current smoker, 3-4 packs per day times 36 years TECHNIQUE: LOW DOSE CT LUNG SCREENING Coronal and Sagittal reconstruction series were provided. One or more dose reduction techniques were used (e.g., Automated exposure control, adjustment of the mA and/or kV according to patient size, use of iterative reconstruction technique). REFERENCE LINK: [employer] Lung-RADS RADIATION DOSE SUMMARY: CTDlvol: 4.02 mGy DLP: 152 mGycm COMPARISON: None FINDINGS: Lung windows show the lungs to be normally expanded. There is poorly defined opacifications in the right middle lobe likely an infiltrate as there are air bronchograms present but an underlying process can not be excluded and follow-up is recommended to ensure complete resolution. There are scattered airspace opacifications in the lower lung bang suggestive of pneumonitis. No demonstrated effusion, no suspicious noncalcified mass or nodule. Limited soft tissue windows show a normal-appearing thyroid gland. There are scattered subcentimeter in short axis dimension axillary and mediastinal lymph nodes likely reactive. There are calcified coronary vessels. The thoracic aorta tapers normally. There is diffuse thickening and some distention of the esophagus suggesting achalasia and GE reflux but the overall appearance of the esophagus is concerning and further evaluation with endoscopy or upper GI study is recommended to exclude a sinister process. Bony structures show degenerative change. Limited cuts through the upper abdomen do not show a suspicious abnormality CT/Low Dose CT Lung Screening IMPRESSION: Airspace opacifications in the right middle lobe with air bronchograms likely infiltrate. However, follow-up is recommended to ensure complete resolution as a neoplastic process could have a similar appearance. Scattered airspace opacifications in the lower lung bang consistent with pneumonitis. No demonstrated effusion Abnormal appearing esophagus with mucosal thickening and distention may be due to achalasia and/or reflux. However, further evaluation with upper GI or endoscopy recommended to exclude a sinister process. Coronary artery calcification (CAC) is is present Lung-RADS Category: 0 INFLAMMATORY-INCOMPLETE. FINDINGS SUGGESTIVE OF AN INFLAMMATORY OR INFECTIOUS PROCESS. RECOMMEND 1-3 MONTH LDCT. Reading Location: [facility] CC: Dr. Sae Pepe DO; Dr. Lucian Chueng MD School Photographs Detailer: Signed Normal [facility] Pulmonary Visit Reporton Pulmonary Visit Report [facility] Pulmonary Medicine of [address] [place] [address] OFFICE VISIT Date of Service: 10/17/24 MR#: [id number] Acct: [id number] Name: CHITO WELLS Rep #: [id number] : 1965 Provider: Dr. Sae Pepe DO Age/Sex: 58/M Location: [facility] Status: Signed Assessment and Plan Assessment and Plan (1) SOB (shortness of breath): Status: Chronic Plan: The patient has an extensive tobacco abuse history with a component of what is likely underlying COPD. He reported that he has never completed pulmonary function studies in the past, despite being maintained on twice daily Symbicort. Accordingly, we will plan to obtain baseline pulmonary function studies along with a 6-minute walk test to assess for any exertional hypoxemia. The results of his testing will be reviewed at his follow-up office visit. The patient will be continued on his current inhaler regimen for now. (2) Obesity: Status: Chronic Qualifiers: Body mass index: BMI 50.0-59.9 Obesity classification: adult class 3 (BMI >= 40) Obesity type: due to excess calories Serious obesity comorbidity presence: with serious comorbidity Qualified Code(s): E66.01 - Morbid (severe) obesity due to excess calories; Z68.43 - Body mass index [BMI] 50.0-59.9, adult Plan: Weight loss through dietary modification and a graded exercise regimen is strongly encouraged. (3) Nicotine dependence, cigarettes, uncomplicated: Status: Chronic Plan: I personally spent 4 minutes discussing the deleterious effects of continued tobacco use with the patient, including modalities which could be utilized to achieve a smoke-free lifestyle. The patien t did have an enlarged paratracheal lymph node noted on CT imaging of the chest in August 2024. According to the patient, this finding has been present for a multitude of years. Nevertheless, the patient does have a known history of lymphoma, currently in remission. In light of the aforementioned, and given the patient's age and tobacco abuse history, we will plan to obtain follow-up low-dose CT imaging of the chest. Orders: Orders Simple Pulmonary Exercise Test 10/17/24 F17.210 - Nicotine dependence, cigarettes, uncomplicated, R06.02 - Shortness of breath PFT Complete - DLCO, Spirometry b/a bronchodilators, lung volumes 10/17/24 F17.210 - Nicotine dependence, cigarettes, uncomplicated, R06.02 - Shortness of breath Low Dose CT Lung Screening 10/17/24 F17.210 - Nicotine dependence, cigarettes, uncomplicated, R06.02 - Shortness of breath Smoking Cessation 10/17/24 F17.210 - Nicotine dependence, cigarettes, uncomplicated, R06.02 - Shortness of breath HPI HPI Comments Details: The patient is a 58-year-old male who presents to the clinic today in referral for the evaluation of abnormal CT chest. The patient currently resides at [facility]. He is unable to articulate to me why he was referred to our office for evaluation. However, the referral was made by Dr. Coulter, who is apparently now retired. According to the patient, he was previously followed by a director adult and has a known enlarged lymph node in his chest. The patient also reported a history of lymphoma, which has been in remission for a number of years. The patient does have an extensive tobacco abuse history of 90+ pack years, but has cut back to smoking 5 cigarettes/day. In addition to his personal smoking history, he did grow up in a smoking household. 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 He reported to me that he has never completed pulmonary function studies. However, he does carry a presumptive diagnosis of COPD. He does report the presence of exertional dyspnea along with occasional chest tightness, wheezing and cough. He is currently prescribed twice daily Symbicort. He does report a remote history of DVT which was treated with systemic anticoagulation. The patient also reported that he is on a noninvasive ventilator at his retirement facility. However, none of the records pertinent to the patient's pulmonary related conditions were ever forwarded for his office visit today. The patient did have a CT chest/abdomen/pelvis completed on September 10, 2024 which apparently demonstrated a paratracheal lymph node measuring 3.2 cm. According to the patient, this is a finding that was noted on prior CT scans over the last several years. Again, I do not have any of the patient's prior imaging studies for comparison. Intake Vital Signs 12/13/23 09:39 10/17/24 06:45 Height 5 ft 5 in 5 ft 5 in Weight: 312 lb BMI 51.9 BP 123/74 H Blood Pressure Location Rt brachial Position Sitting Respiration 18 Pulse 65 Pulse Source Monitor Temp 97.5 F L Temperature Source Temporal Artery Pulse Oximetry (%) 93 Oxygen Delivery (more content not included)... Normal [facility] URINE CREATININE AND PROTEIN RATIOon 10-12-2024 CREATININE UR 23.02 mg/dl Normal [facility] Comment on above: Performed By: #### 2 68900 ####[facility],[address] [place] [address] PC RATIO 5.98 mg/dL Normal 0.00 - 10.00 [facility] Comment on above: Performed By: #### 2 49701 ####[facility],[address] [place] [address] 27281 Protein (U) [Mass/Vol] 137.60 mg/dL High 0.00 - 10.00 [facility] Comment on above: Performed By: #### 2 32574 ####[facility],[address] [place] [address] 50574 PTH, INTACT [CCL]on 10-11-19 25 PTH, Intact 108 pg/mL High 15-65 [facility] Comment on above: Result Comment: [facility] [address] [place], [place] [address]Hxqaio Dwight OBRIEN [id number] Performed By: #### 2 47498 ####[facility],[address] [place] [address] 78398 BMP with eGFRon 10-09-2024 AGE 58 years Normal [facility] Comment on above: Performed By: #### 2 44916 ####[facility],[address] [place] [address] 62027 Anion gap [Moles/Vol] 11 mmol/L Normal 10 - 20 [facility] Comment on above: Performed By: #### 2 69758 ####[facility],[address] [place] [address] 98040 BMP with eGFR Normal [facility] Comment on above: Result Comment: BASI C METABOLIC PANEL Performed By: #### 2 46830 ####[facility],[address] [place] [address] 71314 Calcium [Mass/Vol] 9.6 mg/dL Normal 8.5 - 10.1 [facility] Comment on above: Performed By: #### 2 71861 ####[facility],[address] [place] [address] 14824 Chloride [Moles/Vol] 102 mmol/L Normal 98 - 107 [facility] Comment on above: Performed By: #### 2 81603 ####[facility],[address] [place] [address] 95174 CO2 [Moles/Vol] 29.7 mmol/L Normal 21.0 - 32.0 [facility] Comment on above: Performed By: #### 2 40888 ####[facility],[address] [place] [address] 28523 Creatinine [Mass/Vol] 2.04 mg/dL High 0.70 - 1.30 [facility] Comment on above: Performed By: #### 2 31461 ####[facility],[address] [place] [address] 07602 eGFR 34 ML/MINUTE Low 60 - 999 [facility] Comment on above: Performed By: #### 2 45633 ####[facility],[address] [place], [place] [id number] eGFR(AA) 41 ML/MINUTE Low 60 - 999 [facility] Comment on above: Result Comment: ACCO RDING TO THE NATIONAL KIDNEY DISEASE EDUCATION PROGRAM(NKDE), A NORMAL eGFRIS A VALUE GREATER THAN OR EQUAL TO 60 ML/MIN/1.73 SQ METERS.CHRONIC KIDNEY DISEASE: <60mL/MIN/1.73 SQ METERSKIDNEY FAILURE: <15mL/MIN/1.73 SQ METERSTHIS TEST SHOULD ONLY BE USED FOR PATIENTS 18 YEARS OF AGE AND OLDER. Performed By: #### 2 79873 ####[facility],[address] [place] [address] 97343 Glucose [Mass/Vol] 104 mg/dL Normal 74 - 106 [facility] Comment on above: Performed By: #### 2 35922 ####[facility],[address] [place] [address] 36984 Potassium [Moles/Vol] 3.5 mmol/L Normal 3.5 - 5.1 [facility] Comment on above: Performed By: #### 2 85647 ####[facility],[address] [place], [place] [id number] Sodium [Moles/Vol] 139 mmol/L Normal 136 - 145 [facility] Comment on above: Performed By: #### 2 32107 ####[facility],[address] [place] [address] 98863 Urea nitrogen [Mass/Vol] 27 mg/dL High 7 - 18 [facility] Comment on above: Performed By: #### 2 82833 ####[facility],[address] [place] [address] 72829 CBC + DIFFon 10-09-2024 Baso # 0.02 x10EE3/UL Normal 0.00 - 0.10 [facility] Comment on above: Performed By: #### 2 87262 ####[facility],[address] [place] [address] 46476 Basophils/100 WBC (Bld) 0.4 % Normal 0.0 - 2.0 [facility] Comment on above: Performed By: #### 2 48040 ####[facility],[address] [place], [place] [id number] CBC + DIFF Normal [facility] Comment on above: Result Comment: CBC- COMPLETE BLOOD COUNT Performed By: #### 2 25040 ####[facility],[address] [place] [address] 17577 EO # 0.26 x10EE3/UL Normal 0.00 - 0.50 [facility] Comment on above: Performed By: #### 2 26179 ####[facility],[address] [place] [address] 37094 Eosinophils/100 WBC (Bld) 5.0 % Normal 0.0 - 7.0 [facility] Comment on above: Performed By: #### 2 24401 ####[facility],[address] [place] [address] 11776 Erythrocyte distribution width (RBC) [Ratio] 13.6 % Normal 12.0 - 15.6 [facility] Comment on above: Performed By: #### 2 06971 ####[facility],[address] [place] [address] 03411 Hematocrit (Bld) [Volume fraction] 35.6 % Low 40.0 - 52.0 [facility] Comment on above: Performed By: #### 2 12617 ####[facility],[address] [place] [address] Hemoglobin (Bld) [Mass/Vol] 12.2 g/dL Low 13.0 - 17.5 [facility] Comment on above: Performed By: #### 2 03150 ####[facility],[address] [place] [address] Lymph # 1.22 x10EE3/UL Normal 0.80 - 2.80 [facility] Comment on above: Performed By: #### 2 55405 ####[facility],[address] [place] [address] Lymphocytes/100 WBC (Bld) 23.2 % Normal 20.0 - 45.0 [facility] Comment on above: Performed By: #### 2 78491 ####[facility],[address] [place] [address] MANUAL DIFF N/A Normal [facility] Comment on above: Performed By: #### 2 48278 ####[facility],[address] [place] [address] MCH (RBC) [Entitic mass] 30 pg Normal 27 - 33 [facility] Comment on above: Performed By: #### 2 86239 ####[facility],[address] [place] [address] MCHC 34 X10 3 Normal 32 - 36 [facility] Comment on above: Performed By: #### 2 14337 ####[facility],[address] [place], [place] [id number] MCV (RBC) [Entitic vol] 88 fL Normal 81 - 98 [facility] Comment on above: Performed By: #### 2 37329 ####[facility],[address] [place] [address] Jennings # 0.53 x10EE3/UL Normal 0.20 - 1.00 [facility] Comment on above: Performed By: #### 2 89257 ####[facility],[address] [place] [address] 08263 MONOS % 10.2 % High 0.0 - 10.0 [facility] Comment on above: Performed By: #### 2 20822 ####[facility],[address] [place] [address] 07282 Morphology Tevin (Bld) [Interp] N/A Normal [facility] Comment on above: Performed By: #### 2 59057 ####[facility],[address] [place] [address] 48488 Neut # 3.22 x10EE3/UL Normal 1.50 - 7.10 [facility] Comment on above: Performed By: #### 2 94256 ####[address] [address] Neutrophils/100 WBC (Bld) 61.2 % Normal 46.0 - 76.0 [facility] Comment on above: Performed By: #### 2 12545 ####[facility],[address] [place] [address] 00983 PLATELET 132 x10EE3/UL Low 150 - 450 [facility] Comment on above: Performed By: #### 2 03649 ####[facility],[address] [place] [address] 98572 Platelet mean volume (Bld) [Entitic vol] 7.5 fL Normal 6.4 - 10.5 [facility] [facility] Comment on above: Result Comment: AUTO MATED DIFFERENTIAL Performed By: #### 2 53899 ####[facility],[address] [place] [address] 97718 RBC 4.03 x 10EE6/UL Low 4.50 - 6.00 [facility] Comment on above: Performed By: #### 2 70937 ####[facility],[address] [place] [address] 91240 WBC 5.3 x 10EE3/UL Normal 4.5 - 10.8 [facility] Comment on above: Performed By: #### 2 50123 ####[facility],[address] [place] [address] 78299 PTH-Intact SerPl-mCncon 09-18 Parathyrin.intact [Mass/Vol] 108 pg/mL High 15-65 [facility] Comment on above: Order Comment: Speci men Type: BLOOD SPECIMEN Ordering Facility: [facility] Address: [address] [place] [address] Performed By: #### 2 731-8 #### [facility] CLIA [id number] [address] [place] [address] [place] URIC ACIDon 10-09-2024 Urate [Mass/Vol] 7.7 mg/dL High 3.5 - 7.2 [facility] Comment on above: Performed By: #### 2 51145 ####[facility],[address] [place] [address] 66256 VITAMIN D, 25 HYDROXYon 09-18 VitD 41.70 ng/mL Normal 30.00 - 100 [facility] Comment on above: Result Comment: 25-O HD3 indicates both endogenous production and supplementation. 25-OHD2 is anindicator of exogenous sources, such as diet or supplementation. Therapy isbased on measurement of Total 25-OHD, with levels <20 ng/mL indicative ofVitamin D deficiency, while levels between 20 ng/mL and 30 ng/mL suggestinsufficiency. Optimal levels are >=30ng/mL.Vitamin D, 25-OH D3 Not EstablishedVitamin D, 25-OH D2 Not Established Performed By: #### 2 87247 ####[facility],[address] [place] [address] CHEST W/O CONTRASTon 09-17 CT CHEST W/O CONTRAST Normal [facility] VITAMIN D, 25 HYDROXYon 09-17 VitD 40.00 ng/mL Normal 30.00 - 100 [facility] Comment on above: Result Comment: 25-O HD3 indicates both endogenous production and supplementation. 25-OHD2 is anindicator of exogenous sources, such as diet or supplementation. Therapy isbased on measurement of Total 25-OHD, with levels <20 ng/mL indicative ofVitamin D deficiency, while levels between 20 ng/mL and 30 ng/mL suggestinsufficiency. Optimal levels are >=30ng/mL.Vitamin D, 25-OH D3 Not EstablishedVitamin D, 25-OH D2 Not Established Performed By: #### 2 15689 ####[facility],[address] [place] [address] 02717 CLAMP OPERATOR REPORTon 09-24-19 CLAMP OPERATOR REPORT Normal [facility] BMP with eGFRon 09-16-2024 AGE 58 years Normal [facility] Comment on above: Performed By: #### 2 21124 ####[facility],[address] [place] [address] 81710 Anion gap [Moles/Vol] 14 mmol/L Normal - 20 [facility] Comment on above: Performed By: #### 2 02246 ####[facility],[address] [place] [address] 62062 BMP with eGFR Normal [facility] Comment on above: Result Comment: BASI C METABOLIC PANEL Performed By: #### 2 24609 ####[facility],[address] [place] [address] 34020 Calcium [Mass/Vol] 9.3 mg/dL Normal 8.5 - 10.1 [facility] Comment on above: Performed By: #### 2 55253 ####[facility],[address] [place] [address] 86398 Chloride [Moles/Vol] 100 mmol/L Normal 98 - 107 [facility] Comment on above: Performed By: #### 2 24021 ####[facility],[address] [place] [address] 70193 CO2 [Moles/Vol] 28.5 mmol/L Normal 21.0 - 32.0 [facility] Comment on above: Performed By: #### 2 45733 ####[facility],[address] [place] [address] 62941 Creatinine [Mass/Vol] 2.13 mg/dL High 0.70 - 1.30 [facility] Comment on above: Performed By: #### 2 10139 ####[facility],[address] [place] [address] 95074 eGFR 32 ML/MINUTE Low 60 - 999 [facility] Comment on above: Performed By: #### 2 15249 ####[facility],[address] [place] [address] 08091 eGFR(AA) 39 ML/MINUTE Low 60 - 999 [facility] Comment on above: Result Comment: ACCO RDING TO THE NATIONAL KIDNEY DISEASE EDUCATION PROGRAM(NKDE), A NORMAL eGFRIS A VALUE GREATER THAN OR EQUAL TO 60 ML/MIN/1.73 SQ METERS.CHRONIC KIDNEY DISEASE: <60mL/MIN/1.73 SQ METERSKIDNEY FAILURE: <15mL/MIN/1.73 SQ METERSTHIS TEST SHOULD ONLY BE USED FOR PATIENTS 18 YEARS OF AGE AND OLDER. Performed By: #### 2 70655 ####[facility],[address] [place] [address] 68563 Glucose [Mass/Vol] 209 mg/dL High 74 - 106 [facility] Comment on above: Performed By: #### 2 37356 ####[facility],[address] [place] [address] 35652 Potassium [Moles/Vol] 3.7 mmol/L Normal 3.5 - 5.1 [facility] Comment on above: Performed By: #### 2 05293 ####[facility],[address] [place] [address] 99930 Sodium [Moles/Vol] 139 mmol/L Normal 136 - 145 [facility] Comment on above: Performed By: #### 2 76981 ####[facility],[address] [place] [address] 46049 Urea nitrogen [Mass/Vol] 24 mg/dL High 7 - 18 [facility] Comment on above: Performed By: #### 2 71620 ####[facility],[address] [place] [address] ED MED ADMINISTRATION DETAIL on 09-11-2024 ED MED ADMINISTRATION DETAIL Normal [facility] ED NURSES CLINICAL NOTEon ED NURSES CLINICAL NOTE Normal [facility] ED ORDER SHEET (CPOE ONLY)on 09-11-2024 ED ORDER SHEET (CPOE ONLY) Normal [facility] ED PHYSICIAN CLINICAL REPORT on 09-11-2024 ED PHYSICIAN CLINICAL REPORT Normal [facility] ED SUPER BILLon 09-11-2024 ED SUPER BILL Normal [facility] ED VISIT SUMMARYon ED VISIT SUMMARY Normal [facility] ED VITALS FLOW SHEETon 09-11 ED VITALS FLOW SHEET Normal [facility] CBC + DIFFon 09-10-2024 Baso # 0.04 x10EE3/UL Normal 0.00 - 0.10 [facility] Comment on above: Performed By: #### 2 99657 ####[facility],[address] [place] [address] Basophils/100 WBC (Bld) 0.3 % Normal 0.0 - 2.0 [facility] Comment on above: Performed By: #### 2 05830 ####[facility],[address] [place] [address] CBC + DIFF Normal [facility] Comment on above: Result Comment: CBC- COMPLETE BLOOD COUNT Performed By: #### 2 26932 ####[facility],[address] [place] [address] EO # 0.25 x10EE3/UL Normal 0.00 - 0.50 [facility] Comment on above: Performed By: #### 2 41115 ####[facility],[address] [place], [place] [address] Eosinophils/100 WBC (Bld) 1.9 % Normal 0.0 - 7.0 [facility] Comment on above: Performed By: #### 2 50737 ####[facility],[address] [place] [address] Erythrocyte distribution width (RBC) [Ratio] 13.9 % Normal 12.0 - 15.6 [facility] Comment on above: Performed By: #### 2 36905 ####[facility],[address] [place] [address] Hematocrit (Bld) [Volume fraction] 35.6 % Low 40.0 - 52.0 [facility] Comment on above: Performed By: #### 2 70146 ####[facility],[address] [place] [address] Hemoglobin (Bld) [Mass/Vol] 12.5 g/dL Low 13.0 - 17.5 [facility] Comment on above: Performed By: #### 2 40925 ####[facility],[address] [place] [address] Lymph # 0.95 x10EE3/UL Normal 0.80 - 2.80 [facility] Comment on above: Performed By: #### 2 75088 ####[facility],[address] [place] [address] Lymphocytes/100 WBC (Bld) 7.2 % Low 20.0 - 45.0 [facility] Comment on above: Performed By: #### 2 58097 ####[facility],[address] [place], [place] [address] MANUAL DIFF N/A Normal [facility] Comment on above: Performed By: #### 2 13118 ####[facility],[address] [place] [address] MCH (RBC) [Entitic mass] 31 pg Normal 27 - 33 [facility] Comment on above: Performed By: #### 2 33821 ####[facility],[address] [place] [address] MCHC 35 X10 3 Normal 32 - 36 [facility] Comment on above: Performed By: #### 2 07118 ####[facility],[address] [place] [address] MCV (RBC) [Entitic vol] 87 fL Normal 81 - 98 [facility] Comment on above: Performed By: #### 2 43779 ####[facility],[address] [place] [address] Jennings # 1.25 x10EE3/UL High 0.20 - 1.00 [facility] Comment on above: Performed By: #### 2 83237 ####[facility],[address] [place] [address] MONOS % 9.4 % Normal 0.0 - 10.0 [facility] Comment on above: Performed By: #### 2 39735 ####[facility],[address] [place] [address] Morphology Tevin (Bld) [Interp] N/A Normal [facility] Comment on above: Performed By: #### 2 44246 ####[facility],[address] [place] [address] Neut # 10.80 x10EE3/UL High 1.50 - 7.10 [facility] Comment on above: Performed By: #### 2 36955 ####[place] [address] Neutrophils/100 WBC (Bld) 81.2 % High 46.0 - 76.0 [facility] Comment on above: Performed By: #### 2 69960 ####[place] [address] PLATELET 141 x10EE3/UL Low 150 - 450 [facility] Comment on above: Performed By: #### 2 55008 ####[facility],[address],[place] [address] Platelet mean volume (Bld) [Entitic vol] 7.4 fL Normal 6.4 - 10.5 [facility] Comment on above: Result Comment: AUTO MATED DIFFERENTIAL Performed By: #### 2 42805 ####[facility],[address] [place] [address] 94822 RBC 4.08 x 10EE6/UL Low 4.50 - 6.00 [facility] Comment on above: Performed By: #### 2 10791 ####[facility],[address] [place] [address] 69597 WBC 13.3 x 10EE3/UL High 4.5 - 10.8 [facility] Comment on above: Performed By: #### 2 82713 ####[facility],[address] [place] [address] 12822 CMP with eGFRon 09-10-2024 AGE 58 years Normal [facility] Comment on above: Performed By: #### 2 34321 ####[facility],[address] [place] [address] 07341 Albumin [Mass/Vol] 3.0 g/dL Low 3.4 - 5.0 [facility] Comment on above: Performed By: #### 2 19894 ####[facility],[address] [place] [address] 86947 Albumin/Globulin [Mass ratio] 0.7 {ratio} Low 0.9 - 1.6 [facility] Comment on above: Performed By: #### 2 82041 ####[facility],[address] [place] [address] 24030 ALK PHOS 97 U/L Normal 46 - 116 [facility] Comment on above: Performed By: #### 2 99906 ####[facility],[address] [place] [address] 81100 ALT [Catalytic activity/Vol] 18 U/L Normal 16 - 63 [facility] Comment on above: Performed By: #### 2 82321 ####[facility],[address] [place] [address] 21121 Anion gap [Moles/Vol] 7 mmol/L Low 10 - 20 [facility] Comment on above: Performed By: #### 2 31723 ####[facility],[address] [place] [address] 31734 AST [Catalytic activity/Vol] 28 U/L Normal 15 - 37 [facility] Comment on above: Performed By: #### 2 42422 ####[facility],[address] [place] [address] 45639 B/C RATIO 11 ratio Normal 0 - 30 [facility] Comment on above: Performed By: #### 2 71138 ####[facility],[address] [place] [address] 82304 Bilirubin [Mass/Vol] 0.3 mg/dL Normal 0.2 - 1.0 [facility] Comment on above: Performed By: #### 2 89110 ####[facility],[address] [place] [address] 08205 Calcium [Mass/Vol] 9.1 mg/dL Normal 8.5 - 10.1 [facility] Comment on above: Performed By: #### 2 86413 ####[facility],[address] [place] [address] 29923 Chloride [Moles/Vol] 99 mmol/L Normal 98 - 107 [facility] Comment on above: Performed By: #### 2 17357 ####[facility],[address] [place] [address] 57397 CMP with eGFR Normal [facility] Comment on above: Result Comment: COMP REHENSIVE METABOLIC PANEL Performed By: #### 2 68402 ####[facility],[address] [place] [address] 99058 CO2 [Moles/Vol] 36.0 mmol/L High 21.0 - 32.0 [facility] Comment on above: Performed By: #### 2 87445 ####[facility],[address] [place] [address] 91565 Creatinine [Mass/Vol] 2.22 mg/dL High 0.70 - 1.30 [facility] Comment on above: Performed By: #### 2 46828 ####[facility],[address] [place] [address] 74883 eGFR 31 ML/MINUTE Low 60 - 999 [facility] Comment on above: Performed By: #### 2 87874 ####[facility],[address] [place] [address] 44714 eGFR(AA) 37 ML/MINUTE Low 60 - 999 [facility] Comment on above: Result Comment: ACCO RDING TO THE NATIONAL KIDNEY DISEASE EDUCATION PROGRAM(NKDE), A NORMAL eGFRIS A VALUE GREATER THAN OR EQUAL TO 60 ML/MIN/1.73 SQ METERS.CHRONIC KIDNEY DISEASE: <60mL/MIN/1.73 SQ METERSKIDNEY FAILURE: <15mL/MIN/1.73 SQ METERSTHIS TEST SHOULD ONLY BE USED FOR PATIENTS 18 YEARS OF AGE AND OLDER. Performed By: #### 2 23723 ####[facility],[address] [place] [address] 70325 Globulin (S) [Mass/Vol] 4.5 g/dL High 1.5 - 3.8 [facility] Comment on above: Performed By: #### 2 92116 ####[facility],[address] [place] [address] 35972 Glucose [Mass/Vol] 88 mg/dL Normal 74 - 106 [facility] Comment on above: Performed By: #### 2 70326 ####[facility],[address] [place] [address] 05378 Potassium [Moles/Vol] 3.7 mmol/L Normal 3.5 - 5.1 [facility] Comment on above: Performed By: #### 2 31120 ####[facility],[address] [place] [address] 58905 Protein [Mass/Vol] 7.5 g/dL Normal 6.4 - 8.2 [facility] Comment on above: Performed By: #### 2 65603 ####[facility],[address] [place] [address] 70575 Sodium [Moles/Vol] 138 mmol/L Normal 136 - 145 [facility] Comment on above: Performed By: #### 2 35934 ####[facility],[address] [place], [place] [address] Urea nitrogen [Mass/Vol] 25 mg/dL High 7 - 18 [facility] Comment on above: Performed By: #### 2 71161 ####[facility],[address] [place], [place] [address] CT BRAIN W/O CONTRASTon - CT BRAIN W/O CONTRAST Normal [facility] CT CERVICAL W/O CONTRASTon 0 09-10-[address]24 CT CERVICAL W/O CONTRAST Normal [facility] CT CHEST/ABD/PELVIS C-on CT CHEST/ABD/PELVIS C- Normal [facility] CULTURE BLOOD [YULI]on Microscopic examination of blood, culture CULTURE BLOOD [[place]] _BLOOD CULTURE_ [facility]ACH[facility] FOR SCANNED REPORT 09/17/[id number].DNP.COMPLETE Normal [facility] Comment on above: Performed By: #### 2 28429 ####[facility],[address] [place] [address] 61492 LACTATEon 09-10-2024 Lactate [Moles/Vol] 1.0 mmol/L Normal 0.4 - 2.0 [facility] Comment on above: Performed By: #### 2 87327 ####[facility],[address] [place] [address] 83926 NT-proBNPon 09-10-2024 Natriuretic peptide B (Bld) [Mass/Vol] 436 pg/mL High 0 - 125 [facility] Comment on above: Performed By: #### 2 00460 ####[facility],[address] [place] [address] 58886 TROPONINon 09-10-2024 HS TROPONIN 24.7 pg/mL Normal 0.0 - 76.2 [facility] Comment on above: Performed By: #### 2 23557 ####[facility],[address] [place] [address] 30606 BMP with eGFRon 09-02-2024 AGE 58 years Normal [facility] Comment on above: Performed By: #### 2 98473 ####[facility],[address] [place] [address] 67522 Anion gap [Moles/Vol] 10 mmol/L Normal 10 - 20 [facility] Comment on above: Performed By: #### 2 99028 ####[facility],[address] [place] [address] 13309 BMP with eGFR Normal [facility] Comment on above: Result Comment: BASI C METABOLIC PANEL Performed By: #### 2 31442 ####[facility],[address] [place] [address] 12088 Calcium [Mass/Vol] 8.9 mg/dL Normal 8.5 - 10.1 [facility] Comment on above: Performed By: #### 2 72907 ####[facility],[address] [place] [address] 74568 Chloride [Moles/Vol] 105 mmol/L Normal 98 - 107 [facility] Comment on above: Performed By: #### 2 14481 ####[facility],[address] [place] [address] 42425 CO2 [Moles/Vol] 32.4 mmol/L High 21.0 - 32.0 [facility] Comment on above: Performed By: #### 2 74259 ####[facility],[address] [place] [address] 16764 Creatinine [Mass/Vol] 1.98 mg/dL High 0.70 - 1.30 [facility] Comment on above: Performed By: #### 2 67123 ####[facility],[address] [place] [address] 88056 eGFR 35 ML/MINUTE Low 60 - 999 [facility] Comment on above: Performed By: #### 2 38742 ####[facility],[address] [place] [address] 35084 eGFR(AA) 42 ML/MINUTE Low 60 - 999 [facility] Comment on above: Result Comment: ACCO RDING TO THE NATIONAL KIDNEY DISEASE EDUCATION PROGRAM(NKDE), A NORMAL eGFRIS A VALUE GREATER THAN OR EQUAL TO 60 ML/MIN/1.73 SQ METERS.CHRONIC KIDNEY DISEASE: <60mL/MIN/1.73 SQ METERSKIDNEY FAILURE: <15mL/MIN/1.73 SQ METERSTHIS TEST SHOULD ONLY BE USED FOR PATIENTS 18 YEARS OF AGE AND OLDER. Performed By: #### 2 33226 ####[facility],[address] [place] [address] 72105 Glucose [Mass/Vol] 186 mg/dL High 74 - 106 [facility] Comment on above: Performed By: #### 2 01595 ####[facility],[address] [place] [address] 74641 Potassium [Moles/Vol] 3.2 mmol/L Low 3.5 - 5.1 [facility] Comment on above: Performed By: #### 2 17887 ####[facility],[address] [place] [address] 28940 Sodium [Moles/Vol] 144 mmol/L Normal 136 - 145 [facility] Comment on above: Performed By: #### 2 68540 ####[facility],[address] [place] [address] 75336 Urea nitrogen [Mass/Vol] 30 mg/dL High 7 - 18 [facility] Comment on above: Performed By: #### 2 93927 ####[facility],[address] [place] [address] 97347 URINE CREATININE AND PROTEIN RATIOon 09-02-2024 CREATININE UR 34.32 mg/dl Normal [facility] Comment on above: Performed By: #### 2 74336 ####[facility],[address] [place] [address] 99428 PC RATIO 8.30 mg/dL Normal 0.00 - 10.00 [facility] Comment on above: Performed By: #### 2 39457 ####[facility],[address] [place] [address] 79760 Protein (U) [Mass/Vol] 285.00 mg/dL High 0.00 - 10.00 [facility] Comment on above: Performed By: #### 2 86117 ####[facility],[address] [place] [address] 05729 PTH, INTACT [CCL]on 08-30-19 25 PTH, Intact 90 pg/mL High 15-65 [facility] Comment on above: Result Comment: [facility] [id number] [place], [place] [address]Ybzupc Dwight OBRIEN [id number] Performed By: #### 2 99621 ####[facility],[address] [place] [address] 02920 BMP with eGFRon 08-28-2024 AGE 58 years Normal [facility] Comment on above: Performed By: #### 2 28257 ####[facility],[address] [place] [address] 80499 Anion gap [Moles/Vol] 10 mmol/L Normal 10 - 20 [facility] Comment on above: Performed By: #### 2 56411 ####[facility],[address] [place] [address] 28377 BMP with eGFR Normal [facility] Comment on above: Result Comment: BASI C METABOLIC PANEL Performed By: #### 2 45131 ####[facility],[address] [place] [address] 71486 Calcium [Mass/Vol] 9.0 mg/dL Normal 8.5 - 10.1 [facility] Comment on above: Performed By: #### 2 02525 ####[facility],[address] [place] [address] 79162 Chloride [Moles/Vol] 105 mmol/L Normal 98 - 107 [facility] Comment on above: Performed By: #### 2 02757 ####[facility],[address] [place] [address] 62122 CO2 [Moles/Vol] 28.9 mmol/L Normal 21.0 - 32.0 [facility] Comment on above: Performed By: #### 2 47350 ####[facility],[address] [place] [address] 34762 Creatinine [Mass/Vol] 1.93 mg/dL High 0.70 - 1.30 [facility] Comment on above: Performed By: #### 2 32210 ####[facility],[address] [place] [address] 76255 eGFR 36 ML/MINUTE Low 60 - 999 [facility] Comment on above: Performed By: #### 2 56753 ####[facility],[address] [place] [address] 87188 eGFR(AA) 44 ML/MINUTE Low 60 - 999 [facility] Comment on above: Result Comment: ACCO RDING TO THE NATIONAL KIDNEY DISEASE EDUCATION PROGRAM(NKDE), A NORMAL eGFRIS A VALUE GREATER THAN OR EQUAL TO 60 ML/MIN/1.73 SQ METERS.CHRONIC KIDNEY DISEASE: <60mL/MIN/1.73 SQ METERSKIDNEY FAILURE: <15mL/MIN/1.73 SQ METERSTHIS TEST SHOULD ONLY BE USED FOR PATIENTS 18 YEARS OF AGE AND OLDER. Performed By: #### 2 41292 ####[facility],[address] [place] [address] 04185 Glucose [Mass/Vol] 122 mg/dL High 74 - 106 [facility] Comment on above: Performed By: #### 2 65362 ####[facility],[address] [place] [address] 05247 Potassium [Moles/Vol] 3.7 mmol/L Normal 3.5 - 5.1 [facility] Comment on above: Performed By: #### 2 70524 ####[facility],[address] [place] [address] 29774 Sodium [Moles/Vol] 140 mmol/L Normal 136 - 145 [facility] Comment on above: Performed By: #### 2 70730 ####[facility],[address] [place] [address] 26752 Urea nitrogen [Mass/Vol] 35 mg/dL High 7 - 18 [facility] Comment on above: Performed By: #### 2 97174 ####[facility],[address] [place] [address] 02441 CBC + DIFFon 08-28-2024 Baso # 0.03 x10EE3/UL Normal 0.00 - 0.10 [facility] Comment on above: Performed By: #### 2 86843 ####[facility],[address] [place] [address] 24937 Basophils/100 WBC (Bld) 0.4 % Normal 0.0 - 2.0 [facility] Comment on above: Performed By: #### 2 61331 ####[facility],[address] [place] [address] 40449 CBC + DIFF Normal [facility] Comment on above: Result Comment: CBC- COMPLETE BLOOD COUNT Performed By: #### 2 95949 ####[facility],[address] [place] [address] 62953 EO # 0.26 x10EE3/UL Normal 0.00 - 0.50 [facility] Comment on above: Performed By: #### 2 29622 ####[facility],[address] [place] [address] 98882 Eosinophils/100 WBC (Bld) 3.3 % Normal 0.0 - 7.0 [facility] Comment on above: Performed By: #### 2 29092 ####[facility],[address] [place] [address] Erythrocyte distribution width (RBC) [Ratio] 14.3 % Normal 12.0 - 15.6 [facility] Comment on above: Performed By: #### 2 20622 ####[facility],[address] [place] [address] Hematocrit (Bld) [Volume fraction] 35.8 % Low 40.0 - 52.0 [facility] Comment on above: Performed By: #### 2 04171 ####[facility],[address] [place] [address] Hemoglobin (Bld) [Mass/Vol] 12.2 g/dL Low 13.0 - 17.5 [facility] Comment on above: Performed By: #### 2 73402 ####[facility],[address] [place] [address] Lymph # 1.12 x10EE3/UL Normal 0.80 - 2.80 [facility] Comment on above: Performed By: #### 2 56998 ####[facility],[address] [place] [address] Lymphocytes/100 WBC (Bld) 14.1 % Low 20.0 - 45.0 [facility] Comment on above: Performed By: #### 2 16575 ####[facility],[address] [place], [place] [address] MANUAL DIFF N/A Normal [facility] Comment on above: Performed By: #### 2 04749 ####[facility],[address] [place] [address] MCH (RBC) [Entitic mass] 30 pg Normal 27 - 33 [facility] Comment on above: Performed By: #### 2 21886 ####[facility],[address] [place] [address] MCHC 34 X10 3 Normal 32 - 36 [facility] Comment on above: Performed By: #### 2 28127 ####[facility],[address] [place] [address] MCV (RBC) [Entitic vol] 88 fL Normal 81 - 98 [facility] Comment on above: Performed By: #### 2 61842 ####[facility],[address] [place] [address] Jennings # 0.87 x10EE3/UL Normal 0.20 - 1.00 [facility] Comment on above: Performed By: #### 2 20846 ####[place] [address] MONOS % 10.8 % High 0.0 - 10.0 [facility] Comment on above: Performed By: #### 2 31222 ####[place] [address] Morphology Tevin (Bld) [Interp] N/A Normal [facility] Comment on above: Performed By: #### 2 13722 ####[place] [address] Neut # 5.72 x10EE3/UL Normal 1.50 - 7.10 [facility] Comment on above: Performed By: #### 2 45324 ####[place] [address] Neutrophils/100 WBC (Bld) 71.5 % Normal 46.0 - 76.0 [facility] Comment on above: Performed By: #### 2 82281 ####[place] [address] PLATELET 163 x10EE3/UL Normal 150 - 450 [facility] Comment on above: Performed By: #### 2 23732 ####[facility],[address] [place] [address] Platelet mean volume (Bld) [Entitic vol] 7.5 fL Normal 6.4 - 10.5 [facility] Comment on above: Result Comment: AUTO MATED DIFFERENTIAL Performed By: #### 2 40247 ####[facility],[address] [place] [address] 42757 RBC 4.07 x 10EE6/UL Low 4.50 - 6.00 [facility] Comment on above: Performed By: #### 2 16868 ####[facility],[address] [place] [address] 30427 WBC 8.0 x 10EE3/UL Normal 4.5 - 10.8 [facility] Comment on above: Performed By: #### 2 60580 ####[facility],[address] [place] [address] 75086 PTH-Intact SerPl-mCncon 08-18 Parathyrin.intact [Mass/Vol] 90 pg/mL High 15-65 [facility] Comment on above: Order Comment: Speci men Type: BLOOD SPECIMEN Ordering Facility: [facility] Address: [address] [place] [address] Performed By: #### 2 731-8 #### [facility] CLIA [id number] [address] [place] [address] [place] [facility] URIC ACIDon 08-28-2024 Urate [Mass/Vol] 7.0 mg/dL Normal 3.5 - 7.2 [facility] Comment on above: Performed By: #### 2 05203 ####[facility],[address] [place] [address] 15163 URINE TOTAL PROTEIN RANDOMon 08-28-2024 Protein (U) [Mass/Vol] 339.30 mg/dL High 0.00 - 10.00 [facility] Comment on above: Performed By: #### 2 32388 ####[facility],[address] [place] [address] 45588 VITAMIN D, 25 HYDROXYon 08-18 VitD 32.60 ng/mL Normal 30.00 - 100 [facility] Comment on above: Result Comment: 25-O HD3 indicates both endogenous production and supplementation. 25-OHD2 is anindicator of exogenous sources, such as diet or supplementation. Therapy isbased on measurement of Total 25-OHD, with levels <20 ng/mL indicative ofVitamin D deficiency, while levels between 20 ng/mL and 30 ng/mL suggestinsufficiency. Optimal levels are >=30ng/mL.Vitamin D, 25-OH D3 Not EstablishedVitamin D, 25-OH D2 Not Established Performed By: #### 2 50371 ####[facility],[address] [place] [address] 80875 LEGIONELLA URINARY AG [CCL]o n 08-15-2024 Legionella Urine Ag Negative Normal Negative [facility] Comment on above: Result Comment: Legi onella urinary antigen test is used as an aid in diagnosis ofinfection with Legionella pneumophila serogroup 1. It may be detectedfrom a few days to several months after onset of signs and symptomsdespite antibiotic therapy or disease resolution. A negative resultcannot exclude Legionellosis. Clinical correlation is required.[facility] [place], [place] [address]SyezgzJewel Quintanilla III, M.D.[id number] Performed By: #### 2 50207 ####[facility],[address] [place] [address] 13526 OPERATIVE PROCEDURESon 08-15 OPERATIVE PROCEDURES Normal [facility] Legionella Ag Ur Qlon 2024 Legionella sp Ag Ql (U) Negative Normal Negative [facility] Comment on above: Order Comment: Speci men Type: URINE SPECIMEN Ordering Facility: [facility] Address: [address] [place], [place] [id number] Result Comment: Legi onella urinary antigen test is used as an aid in diagnosis of infection with Legionella pneumophila serogroup 1. It may be detected from a few days to several months after onset of signs and symptoms despite antibiotic therapy or disease resolution. A negative result cannot exclude Legionellosis. Clinical correlation is required. Performed By: #### 3 2781-7 #### [facility] CLIA [id number] [address] [place] [address] [place] PTH, INTACT [CCL]on 07-28-19 25 PTH, Intact 95 pg/mL High 15-65 [facility] Comment on above: Result Comment: [facility] [id number] [facility] [place] [address]MgduhwJewel Quintanilla III, M.D.[id number] Performed By: #### 2 17993 ####[facility],[address] [place] [address] 60719 BMP with eGFRon 07-26-2024 AGE 58 years Normal [facility] Comment on above: Performed By: #### 2 81488 ####[facility],[address] [place] [address] 65991 Anion gap [Moles/Vol] 10 mmol/L Normal - [facility] Comment on above: Performed By: #### 2 12634 ####[facility],[address] [place] [address] 17571 BMP with eGFR Normal [facility] Comment on above: Result Comment: BASI C METABOLIC PANEL Performed By: #### 2 31192 ####[facility],[address] [place] [address] 57042 Calcium [Mass/Vol] 9.2 mg/dL Normal 8.5 - 10.1 [facility] Comment on above: Performed By: #### 2 00009 ####[facility],[address] [place] [address] 04167 Chloride [Moles/Vol] 104 mmol/L Normal 98 - 107 [facility] Comment on above: Performed By: #### 2 34387 ####[facility],[address] [place] [address] 75008 CO2 [Moles/Vol] 32.6 mmol/L High 21.0 - 32.0 [facility] Comment on above: Performed By: #### 2 99289 ####[facility],[address] [place] [address] 87290 Creatinine [Mass/Vol] 2.09 mg/dL High 0.70 - 1.30 [facility] Comment on above: Performed By: #### 2 89285 ####[facility],[address] [place] [address] 00991 eGFR 33 ML/MINUTE Low 60 - 999 [facility] Comment on above: Performed By: #### 2 56472 ####[facility],[address] [place] [address] 47880 eGFR(AA) 40 ML/MINUTE Low 60 - 999 [facility] Comment on above: Result Comment: ACCO RDING TO THE NATIONAL KIDNEY DISEASE EDUCATION PROGRAM(NKDE), A NORMAL eGFRIS A VALUE GREATER THAN OR EQUAL TO 60 ML/MIN/1.73 SQ METERS.CHRONIC KIDNEY DISEASE: <60mL/MIN/1.73 SQ METERSKIDNEY FAILURE: <15mL/MIN/1.73 SQ METERSTHIS TEST SHOULD ONLY BE USED FOR PATIENTS 18 YEARS OF AGE AND OLDER. Performed By: #### 2 68133 ####[facility],[address] [place] [address] 98408 Glucose [Mass/Vol] 268 mg/dL High 74 - 106 [facility] Comment on above: Performed By: #### 2 74210 ####[facility],[address] [place] [address] 16597 Potassium [Moles/Vol] 3.3 mmol/L Low 3.5 - 5.1 [facility] Comment on above: Performed By: #### 2 30789 ####[facility],[address] [place] [address] 49082 Sodium [Moles/Vol] 143 mmol/L Normal 136 - 145 [facility] Comment on above: Performed By: #### 2 20225 ####[facility],[address] [place] [address] 80749 Urea nitrogen [Mass/Vol] 31 mg/dL High 7 - 18 [facility] Comment on above: Performed By: #### 2 96897 ####[facility],[address] [place] [address] CBC + DIFFon 07-26-2024 Baso # 0.02 x10EE3/UL Normal 0.00 - 0.10 [facility] Comment on above: Performed By: #### 2 61326 ####[facility],[address] [place] [address] Basophils/100 WBC (Bld) 0.3 % Normal 0.0 - 2.0 [facility] Comment on above: Performed By: #### 2 49543 ####[facility],[address] [place] [address] CBC + DIFF Normal [facility] Comment on above: Result Comment: CBC- COMPLETE BLOOD COUNT Performed By: #### 2 52754 ####[facility],[address] [place] [address] EO # 0.26 x10EE3/UL Normal 0.00 - 0.50 [facility] Comment on above: Performed By: #### 2 06668 ####[facility],[address] [place], [place] [address] Eosinophils/100 WBC (Bld) 3.7 % Normal 0.0 - 7.0 [facility] Comment on above: Performed By: #### 2 05164 ####[facility],[address] [place], [place] [address] Erythrocyte distribution width (RBC) [Ratio] 15.1 % Normal 12.0 - 15.6 [facility] Comment on above: Performed By: #### 2 58919 ####[facility],[address] [place] [address] Hematocrit (Bld) [Volume fraction] 37.3 % Low 40.0 - 52.0 [facility] Comment on above: Performed By: #### 2 68962 ####[facility],[address] [place] [address] Hemoglobin (Bld) [Mass/Vol] 12.6 g/dL Low 13.0 - 17.5 [facility] Comment on above: Performed By: #### 2 15402 ####[facility],[address] [place] [address] Lymph # 1.04 x10EE3/UL Normal 0.80 - 2.80 [facility] Comment on above: Performed By: #### 2 83175 ####[facility],[address] [place] [address] Lymphocytes/100 WBC (Bld) 14.7 % Low 20.0 - 45.0 [facility] Comment on above: Performed By: #### 2 14884 ####[facility],[address] [place] [address] MANUAL DIFF N/A Normal [facility] Comment on above: Performed By: #### 2 33930 ####[facility],[address] [place], [place] [address] MCH (RBC) [Entitic mass] 30 pg Normal 27 - 33 [facility] Comment on above: Performed By: #### 2 07798 ####[facility],[address] [place] [address] 99173 MCHC 34 X10 3 Normal 32 - 36 [facility] Comment on above: Performed By: #### 2 10411 ####[facility],[address] [place] [address] 22893 MCV (RBC) [Entitic vol] 88 fL Normal 81 - 98 [facility] Comment on above: Performed By: #### 2 80147 ####[facility],[address] [place], [place] [address] Jennings # 0.68 x10EE3/UL Normal 0.20 - 1.00 [facility] Comment on above: Performed By: #### 2 03413 ####[facility],[address] [place] [address] 66472 MONOS % 9.6 % Normal 0.0 - 10.0 [facility] Comment on above: Performed By: #### 2 74512 ####[facility],[address] [place] [address] 94261 Morphology Tevin (Bld) [Interp] N/A Normal [facility] Comment on above: Performed By: #### 2 35507 ####[facility],[address] [place] [address] 06098 Neut # 5.08 x10EE3/UL Normal 1.50 - 7.10 [facility] Comment on above: Performed By: #### 2 14158 ####[facility],[address] [place] [address] 78363 Neutrophils/100 WBC (Bld) 71.8 % Normal 46.0 - 76.0 [facility] Comment on above: Performed By: #### 2 54063 ####[facility],[address] [place] [address] 11710 PLATELET 132 x10EE3/UL Low 150 - 450 [facility] Comment on above: Performed By: #### 2 25979 ####[facility],[address] [place] [address] 90634 Platelet mean volume (Bld) [Entitic vol] 7.9 fL Normal 6.4 - 10.5 [facility] Comment on above: Result Comment: AUTO MATED DIFFERENTIAL Performed By: #### 2 67570 ####[facility],[address] [place] [address] 99941 RBC 4.25 x 10EE6/UL Low 4.50 - 6.00 [facility] Comment on above: Performed By: #### 2 79543 ####[facility],[address] [place] [address] 37684 WBC 7.1 x 10EE3/UL Normal 4.5 - 10.8 [facility] Comment on above: Performed By: #### 2 14681 ####[facility],[address] [place] [address] 71348 PTH-Intact SerPl-mCncon Parathyrin.intact [Mass/Vol] 95 pg/mL High 15-65 [facility] Comment on above: Order Comment: Speci men Type: BLOOD SPECIMEN Ordering Facility: [facility] Address: [address] [place] [address] Performed By: #### 2 731-8 #### [facility] CLIA [id number] [address] [place], [place] [id number] [place] URIC ACIDon 07-26-2024 Urate [Mass/Vol] 7.7 mg/dL High 3.5 - 7.2 [facility] Comment on above: Performed By: #### 2 56910 ####[facility],[address] [place] [address] 26219 URINE TOTAL PROTEIN RANDOMon 07-26-2024 Protein (U) [Mass/Vol] 352.60 mg/dL High 0.00 - 10.00 [facility] Comment on above: Performed By: #### 2 85600 ####[facility],[address] [place] [address] 78385 VITAMIN D, 25 HYDROXYon VitD 19.60 ng/mL Low 30.00 - 100 [facility] Comment on above: Result Comment: 25-O HD3 indicates both endogenous production and supplementation. 25-OHD2 is anindicator of exogenous sources, such as diet or supplementation. Therapy isbased on measurement of Total 25-OHD, with levels <20 ng/mL indicative ofVitamin D deficiency, while levels between 20 ng/mL and 30 ng/mL suggestinsufficiency. Optimal levels are >=30ng/mL.Vitamin D, 25-OH D3 Not EstablishedVitamin D, 25-OH D2 Not Established Performed By: #### 2 56972 ####[facility],[address] [place] [address] 27024 CV ECHO COMPLETE W/CONTRAST PER PROTOCOLon 07-23-2024 CV ECHO COMPLETE W/CONTRAST PER PROTOCOL Normal [facility] ABD Limited w/ Elastographyo n 07-17-2024 ABD Limited w/ Elastography [facility] Imaging Services [address] [place] [id number] ABD Limited w/ Elastography MR#: [id number] Acct: [id number] Name: CHITO WELLS Rep #: [id number] : 1965 M 58 From: Perry curtis MD PCP: Dr. Stacey Coulter MD Status: DEP CLI Study: ABD Limited w/ Elastography Date of Exam: 06/20 Exam# [id number] Ordering Dr: Wild Sanchez DO PROCEDURE: ABD LIMITED W/ ELASTOGRAPHY REASON FOR EXAM: DIFFUSE HEPATIC STEATOSIS COMPARISON: Prior CT scan dated June 13, 2024. TECHNIQUE: Right upper quadrant abdominal ultrasound. Teresa ElastQ Imaging shear wave elastography for non- invasive assessment of liver tissue stiffness. Teresa EPIQ Elite. FINDINGS: LIVER: Size: Enlarged (hepatomegaly) Length: 23.9 cm Echotexture: Diffusely echogenic suggesting fatty infiltration Contour: Normal Lesions: None identified Elastography: EQI Med: 7.23 kPa EQI Med Christiano: 1.54 m/s IQR/Med: 23.5 %* GALLBLADDER: Surgically absent. COMMON BILE DUCT: Normal . PANCREAS: Normal Visualized portions of the right kidney are unremarkable. No right upper quadrant ascites. US/ABD Limited w/ Elastography IMPRESSION: Pjni-vg-kvbymnrf hepatic fibrosis. Hepatomegaly. Diffuse fatty infiltration of the liver. Reference Values: SRU <1.37 m/s (5.7kPa): No to mild fibrosis 1.37 m/s - 2.2 m/s: Moderate to severe fibrosis >2.2 m/s (15kPa): Significant fibrosis / cirrhosis METAVIR Score F2 or higher: 1.34 m/s (5.7kPa) F3 or higher: 1.55 m/s (7.3kPa) F4: 1.80 m/s (10kPa) * If the IQR/Med is >30%, the variance in the measurements is a large and the accuracy of the measurement may be in question. Reading Location: [facility] CC: Dr. Stacey Coulter MD; Wild Sanchez, [employer] Detailer: Signed Normal [facility] CLAMP OPERATOR REPORTon 07-12-19 CLAMP OPERATOR REPORT Normal [facility] BMP with eGFRon 07-10-2024 AGE 58 years Normal [facility] Comment on above: Performed By: #### 2 27974 ####[facility],[address] [place] [address] 25798 Anion gap [Moles/Vol] 9 mmol/L Low 10 - 20 [facility] Comment on above: Performed By: #### 2 53013 ####[facility],[address] [place] [address] 91185 BMP with eGFR Normal [facility] Comment on above: Result Comment: BASI C METABOLIC PANEL Performed By: #### 2 50884 ####[facility],[address] [place] [address] 81884 Calcium [Mass/Vol] 9.2 mg/dL Normal 8.5 - 10.1 [facility] Comment on above: Performed By: #### 2 38027 ####[facility],[address] [place] [address] 50443 Chloride [Moles/Vol] 102 mmol/L Normal 98 - 107 [facility] Comment on above: Performed By: #### 2 21497 ####[facility],[address] [place] [address] 60348 CO2 [Moles/Vol] 32.2 mmol/L High 21.0 - 32.0 [facility] Comment on above: Performed By: #### 2 02941 ####[facility],[address] [place] [address] 61375 Creatinine [Mass/Vol] 1.87 mg/dL High 0.70 - 1.30 [facility] Comment on above: Performed By: #### 2 09355 ####[facility],[address] [place] [address] 99683 eGFR 37 ML/MINUTE Low 60 - 999 [facility] Comment on above: Performed By: #### 2 47447 ####[facility],[address] [place] [address] 07279 eGFR(AA) 45 ML/MINUTE Low 60 - 999 [facility] Comment on above: Result Comment: ACCO RDING TO THE NATIONAL KIDNEY DISEASE EDUCATION PROGRAM(NKDE), A NORMAL eGFRIS A VALUE GREATER THAN OR EQUAL TO 60 ML/MIN/1.73 SQ METERS.CHRONIC KIDNEY DISEASE: <60mL/MIN/1.73 SQ METERSKIDNEY FAILURE: <15mL/MIN/1.73 SQ METERSTHIS TEST SHOULD ONLY BE USED FOR PATIENTS 18 YEARS OF AGE AND OLDER. Performed By: #### 2 80500 ####[facility],[address] [place] [address] 43507 Glucose [Mass/Vol] 272 mg/dL High 74 - 106 [facility] Comment on above: Performed By: #### 2 05048 ####[facility],[address] [place] [address] 73603 Potassium [Moles/Vol] 3.3 mmol/L Low 3.5 - 5.1 [facility] Comment on above: Performed By: #### 2 26096 ####[facility],[address] [place] [address] 90427 Sodium [Moles/Vol] 140 mmol/L Normal 136 - 145 [facility] Comment on above: Performed By: #### 2 59858 ####[facility],[address] [place] [address] 04047 Urea nitrogen [Mass/Vol] 23 mg/dL High 7 - 18 [facility] Comment on above: Performed By: #### 2 39859 ####[facility],[address] [place] [address] 00751 DRUG SCREEN URINE MEDICon AMPHETAMINES Negative Normal [facility] Comment on above: Performed By: #### 2 78827 ####[facility],[address] [facility] [address] B-DIAZEPINES Negative Normal [facility] Comment on above: Performed By: #### 2 86674 ####[facility],[address] [facility],[place] [address] BARBITURATES Negative Normal [facility] Comment on above: Performed By: #### 2 41456 ####[facility],[address] [facility] [address] COCAINE Negative Normal [facility] Comment on above: Performed By: #### 2 97540 ####[facility],[address] [facility] [address] DRUG SCREEN URINE MEDIC [facility] Comment on above: Result Comment: DRUG SCREEN - URINE Performed By: #### 2 40796 ####[facility],[address] [facility] [address] METHADONE Negative Normal [facility] Comment on above: Performed By: #### 2 17308 ####[facility],[address] [place] [address],[facility] [address] OPIATES Positive Normal [facility] Comment on above: Performed By: #### 2 55928 ####[facility],[address] [facility] [address] PCP Negative Normal [facility] Comment on above: Performed By: #### 2 29847 ####[facility],[address] [facility] [address] THC Negative Normal [facility] Comment on above: Result Comment: LOKESH ENTS RECEIVING PROTON PUMP INHIBITORS MAY DEMONSTRATE FALSE POSITIVETHC/CANNABINOID RESULTS. AN ALTERNATIVE CONFIRMATORY METHOD SHOULD BE CONSIDEREDTO VERIFY POSITIVE RESULTS. Performed By: #### 2 90548 ####[facility],[address] [facility] [address] POTASSIUMon 06-26-2024 Potassium [Moles/Vol] 3.2 mmol/L Low 3.5 - 5.1 [facility] Comment on above: Performed By: #### 2 99331 ####[facility],[address] [place] [address] ED MED ADMINISTRATION DETAIL on 06-21-2024 ED MED ADMINISTRATION DETAIL Normal [facility] ED NURSES CLINICAL NOTEon ED NURSES CLINICAL NOTE Normal [facility] ED ORDER SHEET (CPOE ONLY)on 06-21-2024 ED ORDER SHEET (CPOE ONLY) Normal [facility] ED PHYSICIAN CLINICAL REPORT on 06-21-2024 ED PHYSICIAN CLINICAL REPORT Normal [facility] ED PHYSICIAN DISCHARGE REPOR Ton 06-21-2024 ED PHYSICIAN DISCHARGE REPORT Normal [facility] ED SUPER BILLon 06-21-2024 ED SUPER BILL Normal [facility] ED VISIT SUMMARYon ED VISIT SUMMARY Normal [facility] ED VITALS FLOW SHEETon 06-21 ED VITALS FLOW SHEET Normal [facility] CBC (NO DIFF)on 06-20-2024 CBC panel Auto (Bld) Normal [facility] Comment on above: Result Comment: CBC( WITHOUT DIFFERENTIAL) Performed By: #### 2 61686 ####[facility],[address] [place] [address] Erythrocyte distribution width (RBC) [Ratio] 14.2 % Normal 12.0 - 15.6 [facility] Comment on above: Performed By: #### 2 32384 ####[facility],[address] [place], [place] [address] Hematocrit (Bld) [Volume fraction] 35.7 % Low 40.0 - 52.0 [facility] Comment on above: Performed By: #### 2 51469 ####[facility],[address] [place], [place] [address] Hemoglobin (Bld) [Mass/Vol] 12.3 g/dL Low 13.0 - 17.5 [facility] Comment on above: Performed By: #### 2 97265 ####[facility],[address] [place] [address] 21688 MCH (RBC) [Entitic mass] 29 pg Normal 27 - 33 [facility] Comment on above: Performed By: #### 2 86776 ####[facility],[address] [place] [address] 87804 MCHC 35 X10 3 Normal 32 - 36 [facility] Comment on above: Performed By: #### 2 31960 ####[facility],[address] [place] [address] 07335 MCV (RBC) [Entitic vol] 86 fL Normal 81 - 98 [facility] Comment on above: Performed By: #### 2 12498 ####[facility],[address] [place] [address] 40788 PLATELET 120 x10EE3/UL Low 150 - 450 [facility] Comment on above: Performed By: #### 2 99616 ####[facility],[address] [place] [address] 07799 Platelet mean volume (Bld) [Entitic vol] 7.5 fL Normal 6.4 - 10.5 [facility] Comment on above: Performed By: #### 2 70812 ####[facility],[address] [place] [address] 16577 RBC 4.18 x 10EE6/UL Low 4.50 - 6.00 [facility] Comment on above: Performed By: #### 2 41928 ####[facility],[address] [place] [address] 16249 WBC 10.7 x 10EE3/UL Normal 4.5 - 10.8 [facility] Comment on above: Performed By: #### 2 34530 ####[facility],[address] [place] [address] 79911 CMP with eGFRon 06-20-2024 AGE 58 years Normal [facility] Comment on above: Performed By: #### 2 38014 ####[facility],[address] [place] [address] 52822 Albumin [Mass/Vol] 2.5 g/dL Low 3.4 - 5.0 [facility] Comment on above: Performed By: #### 2 58410 ####[facility],[address] [place] [address] 14270 Albumin/Globulin [Mass ratio] 0.7 {ratio} Low 0.9 - 1.6 [facility] Comment on above: Performed By: #### 2 37214 ####[facility],[address] [place] [address] 36298 ALK PHOS 107 U/L Normal 46 - 116 [facility] Comment on above: Performed By: #### 2 88787 ####[facility],[address] [place] [address] 00518 ALT [Catalytic activity/Vol] 14 U/L Low 16 - 63 [facility] Comment on above: Performed By: #### 2 30310 ####[facility],[address] [place] [address] 52255 Anion gap [Moles/Vol] 8 mmol/L Low 10 - 20 [facility] Comment on above: Performed By: #### 2 41515 ####[facility],[address] [place] [address] 68789 AST [Catalytic activity/Vol] 14 U/L Low 15 - 37 [facility] Comment on above: Performed By: #### 2 20538 ####[facility],[address] [place] [address] 61123 B/C RATIO 14 ratio Normal 0 - 30 [facility] Comment on above: Performed By: #### 2 42846 ####[facility],[address] [place] [address] 99610 Bilirubin [Mass/Vol] 0.2 mg/dL Normal 0.2 - 1.0 [facility] Comment on above: Performed By: #### 2 86185 ####[facility],[address] [place] [address] 62758 Calcium [Mass/Vol] 8.5 mg/dL Normal 8.5 - 10.1 [facility] Comment on above: Performed By: #### 2 84591 ####[facility],[address] [place] [address] 96553 Chloride [Moles/Vol] 105 mmol/L Normal 98 - 107 [facility] Comment on above: Performed By: #### 2 44224 ####[facility],[address] [place] [address] 47306 CMP with eGFR Normal [facility] Comment on above: Result Comment: COMP REHENSIVE METABOLIC PANEL Performed By: #### 2 64927 ####[facility],[address] [place] [address] 59836 CO2 [Moles/Vol] 30.8 mmol/L Normal 21.0 - 32.0 [facility] Comment on above: Performed By: #### 2 92209 ####[facility],[address] [place] [address] 56996 Creatinine [Mass/Vol] 1.97 mg/dL High 0.70 - 1.30 [facility] Comment on above: Performed By: #### 2 67154 ####[facility],[address] [place] [address] 22681 eGFR 35 ML/MINUTE Low 60 - 999 [facility] Comment on above: Performed By: #### 2 08168 ####[facility],[address] [place] [address] 04860 eGFR(AA) 43 ML/MINUTE Low 60 - 999 [facility] Comment on above: Result Comment: ACCO RDING TO THE NATIONAL KIDNEY DISEASE EDUCATION PROGRAM(NKDE), A NORMAL eGFRIS A VALUE GREATER THAN OR EQUAL TO 60 ML/MIN/1.73 SQ METERS.CHRONIC KIDNEY DISEASE: <60mL/MIN/1.73 SQ METERSKIDNEY FAILURE: <15mL/MIN/1.73 SQ METERSTHIS TEST SHOULD ONLY BE USED FOR PATIENTS 18 YEARS OF AGE AND OLDER. Performed By: #### 2 47586 ####[facility],[address] [place] [address] 56171 Globulin (S) [Mass/Vol] 3.7 g/dL Normal 1.5 - 3.8 [facility] Comment on above: Performed By: #### 2 03838 ####[facility],[address] [place] [address] 90693 Glucose [Mass/Vol] 220 mg/dL High 74 - 106 [facility] Comment on above: Performed By: #### 2 09730 ####[facility],[address] [place] [address] 30654 Potassium [Moles/Vol] 3.4 mmol/L Low 3.5 - 5.1 [facility] Comment on above: Performed By: #### 2 80461 ####[facility],[address] [place] [address] 00146 Protein [Mass/Vol] 6.2 g/dL Low 6.4 - 8.2 [facility] Comment on above: Performed By: #### 2 09987 ####[facility],[address] [place] [address] 63301 Sodium [Moles/Vol] 140 mmol/L Normal 136 - 145 [facility] Comment on above: Performed By: #### 2 94836 ####[facility],[address] [place] [address] 32590 Urea nitrogen [Mass/Vol] 27 mg/dL High 7 - 18 [facility] Comment on above: Performed By: #### 2 04165 ####[facility],[address] [place] [address] 95297 HEMOGLOBIN A1C (POM)on 06-20 Glucose [Mass/Vol] 139.9 mg/dL High 0.0 - 0.0 [facility] Comment on above: Result Comment: BLDo HEMOGLOBIN A1C REFERENCE RANGESBLDo Suggested Diagnosis HbA1c(%) HbA1C (mmol/mol Diabetic >/=6.5 >/=48 Prediabetes 5.7 - 6.4 39 - 47 Normal <5.7 <39 Performed By: #### 2 29367 ####[facility],[address] [place] [address] 32593 HbA1c (Bld) [Mass fraction] 6.5 % Normal 0.0 - 6.5 [facility] Comment on above: Performed By: #### 2 20937 ####[facility],[address] [place] [address] 97325 LIPID PROFILEon 06-20-2024 Cholesterol [Mass/Vol] 145 mg/dL Normal 0 - 240 [facility] Comment on above: Performed By: #### 2 24039 ####[facility],[address] [place] [address] 23535 Cholesterol in HDL [Mass/Vol] 51 mg/dL Normal 40 - 60 [facility] Comment on above: Performed By: #### 2 70679 ####[facility],[address] [place] [address] 11023 Cholesterol in LDL [Mass/Vol] 62 mg/dL Normal 0 - 129 [facility] Comment on above: Performed By: #### 2 96149 ####[facility],[address] [place] [address] 98736 Cholesterol.total/Ch olesterol in HDL [Mass ratio] 2.8 {ratio} Normal 0.0 - 5.0 [facility] Comment on above: Performed By: #### 2 99547 ####[facility],[address] [place] [address] 23041 Lipid 1996 panel Normal [facility] Comment on above: Result Comment: LIPI D PROFILE Performed By: #### 2 67915 ####[facility],[address] [place] [address] 95070 Triglyceride [Mass/Vol] 162 mg/dL High 0 - 150 [facility] Comment on above: Performed By: #### 2 35145 ####[facility],[address] [place] [address] TSHon 06-20-2024 TSH Qn 1.57 m[IU]/L Normal 0.35 - 3.74 [facility] Comment on above: Performed By: #### 2 49959 ####[facility],[address] [place] [address] CBC + DIFFon 06-19-2024 Baso # 0.05 x10EE3/UL Normal 0.00 - 0.10 [facility] Comment on above: Performed By: #### 2 61212 ####[facility],[address] [place] [address] Basophils/100 WBC (Bld) 0.3 % Normal 0.0 - 2.0 [facility] Comment on above: Performed By: #### 2 66378 ####[facility],[address] [place] [address] CBC + DIFF Normal [facility] Comment on above: Result Comment: CBC- COMPLETE BLOOD COUNT Performed By: #### 2 03201 ####[facility],[address] [place] [address] EO # 0.23 x10EE3/UL Normal 0.00 - 0.50 [facility] Comment on above: Performed By: #### 2 11077 ####[facility],[address] [place] [address] Eosinophils/100 WBC (Bld) 1.6 % Normal 0.0 - 7.0 [facility] Comment on above: Performed By: #### 2 55522 ####[facility],[address] [place] [address] Erythrocyte distribution width (RBC) [Ratio] 14.2 % Normal 12.0 - 15.6 [facility] Comment on above: Performed By: #### 2 68551 ####[address],[place] [address] Hematocrit (Bld) [Volume fraction] 38.8 % Low 40.0 - 52.0 [facility] Comment on above: Performed By: #### 2 36119 ####[facility],[address] [place], [place] [address] Hemoglobin (Bld) [Mass/Vol] 13.3 g/dL Normal 13.0 - 17.5 [facility] Comment on above: Performed By: #### 2 71019 ####[facility],[address] [place] [address] Lymph # 0.88 x10EE3/UL Normal 0.80 - 2.80 [facility] Comment on above: Performed By: #### 2 68121 ####[facility],[address] [place] [address] Lymphocytes/100 WBC (Bld) 6.2 % Low 20.0 - 45.0 [facility] Comment on above: Performed By: #### 2 16933 ####[facility],[address] [place] [address] 35102 MANUAL DIFF N/A Normal [facility] Comment on above: Performed By: #### 2 63645 ####[facility],[address] [place], [place] [address] MCH (RBC) [Entitic mass] 30 pg Normal 27 - 33 [facility] Comment on above: Performed By: #### 2 41132 ####[facility],[address] [place], [place] [address] MCHC 34 X10 3 Normal 32 - 36 [facility] Comment on above: Performed By: #### 2 12165 ####[facility],[address] [place] [address] 90184 MCV (RBC) [Entitic vol] 87 fL Normal 81 - 98 [facility] Comment on above: Performed By: #### 2 63830 ####[facility],[address] [place] [address] 73421 Jennings # 1.03 x10EE3/UL High 0.20 - 1.00 [facility] Comment on above: Performed By: #### 2 39951 ####[facility],[address] [place] [address] 75360 MONOS % 7.3 % Normal 0.0 - 10.0 [facility] Comment on above: Performed By: #### 2 53397 ####[facility],[address] [place] [address] 00201 Morphology Tevin (Bld) [Interp] N/A Normal [facility] Comment on above: Performed By: #### 2 20513 ####[facility],[address] [place] [address] 86128 Neut # 11.92 x10EE3/UL High 1.50 - 7.10 [facility] Comment on above: Performed By: #### 2 04574 ####[facility],[address] [place] [address] 56622 Neutrophils/100 WBC (Bld) 84.5 % High 46.0 - 76.0 [facility] Comment on above: Performed By: #### 2 38329 ####[facility],[address] [place] [address] 33551 PLATELET 147 x10EE3/UL Low 150 - 450 [facility] Comment on above: Performed By: #### 2 17028 ####[facility],[address] [place] [address] 17829 Platelet mean volume (Bld) [Entitic vol] 7.4 fL Normal 6.4 - 10.5 [facility] Comment on above: Result Comment: AUTO MATED DIFFERENTIAL Performed By: #### 2 60119 ####[facility],[address] [place] [address] 37454 RBC 4.48 x 10EE6/UL Low 4.50 - 6.00 [facility] Comment on above: Performed By: #### 2 22869 ####[facility],[address] [place] [address] 17133 WBC 14.1 x 10EE3/UL High 4.5 - 10.8 [facility] Comment on above: Performed By: #### 2 50538 ####[facility],[address] [place] [address] 28332 CHEST 1 VIEWon 06-19-2024 CHEST 1 VIEW Normal [facility] CMP with eGFRon 06-19-2024 AGE 58 years Normal [facility] Comment on above: Performed By: #### 2 15992 ####[facility],[address] [place] [address] 02786 Albumin [Mass/Vol] 2.8 g/dL Low 3.4 - 5.0 [facility] Comment on above: Performed By: #### 2 04655 ####[facility],[address] [place], [place] [address] Albumin/Globulin [Mass ratio] 0.7 {ratio} Low 0.9 - 1.6 [facility] Comment on above: Performed By: #### 2 73151 ####[facility],[address] [place] [address] 29878 ALK PHOS 112 U/L Normal 46 - 116 [facility] Comment on above: Performed By: #### 2 92393 ####[facility],[address] [place] [address] 52661 ALT [Catalytic activity/Vol] 18 U/L Normal 16 - 63 [facility] Comment on above: Performed By: #### 2 31266 ####[facility],[address] [place] [address] 38753 Anion gap [Moles/Vol] 10 mmol/L Normal 10 - 20 [facility] Comment on above: Performed By: #### 2 73633 ####[facility],[address] [place] [address] 14397 AST [Catalytic activity/Vol] 20 U/L Normal 15 - 37 [facility] Comment on above: Performed By: #### 2 94695 ####[facility],[address] [place] [address] 43511 B/C RATIO 13 ratio Normal 0 - 30 [facility] Comment on above: Performed By: #### 2 11330 ####[facility],[address] [place] [address] 13433 Bilirubin [Mass/Vol] 0.4 mg/dL Normal 0.2 - 1.0 [facility] Comment on above: Performed By: #### 2 86086 ####[facility],[address] [place] [address] 91553 Calcium [Mass/Vol] 8.8 mg/dL Normal 8.5 - 10.1 [facility] Comment on above: Performed By: #### 2 42811 ####[facility],[address] [place] [address] 56927 Chloride [Moles/Vol] 99 mmol/L Normal 98 - 107 [facility] Comment on above: Performed By: #### 2 30185 ####[facility],[address] [place] [address] CMP with eGFR Normal [facility] Comment on above: Result Comment: COMP REHENSIVE METABOLIC PANEL Performed By: #### 2 44009 ####[facility],[address] [place] [address] 86518 CO2 [Moles/Vol] 33.1 mmol/L High 21.0 - 32.0 [facility] Comment on above: Performed By: #### 2 55988 ####[facility],[address] [place] [address] 15862 Creatinine [Mass/Vol] 1.88 mg/dL High 0.70 - 1.30 [facility] Comment on above: Performed By: #### 2 71010 ####[facility],[address],[place] [address] eGFR 37 ML/MINUTE Low 60 - 999 [facility] Comment on above: Performed By: #### 2 68352 ####[facility],[address] [place] [address] [place] [address] eGFR(AA) 45 ML/MINUTE Low 60 - 999 [facility] Comment on above: Result Comment: ACCO RDING TO THE NATIONAL KIDNEY DISEASE EDUCATION PROGRAM(NKDE), A NORMAL eGFRIS A VALUE GREATER THAN OR EQUAL TO 60 ML/MIN/1.73 SQ METERS.CHRONIC KIDNEY DISEASE: <60mL/MIN/1.73 SQ METERSKIDNEY FAILURE: <15mL/MIN/1.73 SQ METERSTHIS TEST SHOULD ONLY BE USED FOR PATIENTS 18 YEARS OF AGE AND OLDER. Performed By: #### 2 35775 ####[facility],[address] [place] [address] 37904 Globulin (S) [Mass/Vol] 3.8 g/dL Normal 1.5 - 3.8 [facility] Comment on above: Performed By: #### 2 68256 ####[facility],[address] [place] [address] 14443 Glucose [Mass/Vol] 127 mg/dL High 74 - 106 [facility] Comment on above: Performed By: #### 2 22301 ####[facility],[address] [place] [address] 99778 Potassium [Moles/Vol] 3.2 mmol/L Low 3.5 - 5.1 [facility] Comment on above: Performed By: #### 2 88325 ####[facility],[address] [place] [address] 44979 Protein [Mass/Vol] 6.6 g/dL Normal 6.4 - 8.2 [facility] Comment on above: Performed By: #### 2 68679 ####[facility],[address] [place] [address] 97324 Sodium [Moles/Vol] 139 mmol/L Normal 136 - 145 [facility] Comment on above: Performed By: #### 2 07994 ####[facility],[address] [place], [place] [address] Urea nitrogen [Mass/Vol] 24 mg/dL High 7 - 18 [facility] Comment on above: Performed By: #### 2 41984 ####[facility],[address] [place] [address] CT ABDOMEN/PELVIS WOon 06-19 CT ABDOMEN/PELVIS WO Normal [facility] CT BRAIN W/O CONTRASTon 04-0 CT BRAIN W/O CONTRAST Normal [facility] CT CERVICAL W/O CONTRASTon 0 06-19-2024 CT CERVICAL W/O CONTRAST Normal [facility] PHOSPHOLIPASE A2 RECEPTOR AB , IgG [CCL]on 06-19-2024 PHOSPHOLIPASE A2 RECEPTOR AB, IgG [CCL] Normal [facility] Comment on above: Result Comment: _PHO SPHOLIPASE A2 RECEPTOR AB, IgG [CCL]_SEE SCANNED REPORT Performed By: #### 2 97439 ####[facility],[address] [place] [address] TROPONINon 06-19-2024 HS TROPONIN 21.4 pg/mL Normal 0.0 - 76.2 [facility] Comment on above: Performed By: #### 2 51137 ####[facility],[address] [place] [address] HS TROPONIN 21.5 pg/mL Normal 0.0 - 76.2 [facility] Comment on above: Performed By: #### 2 31624 ####[facility],[address] [place] [address] 68576 URINALYSISon 06-19-2024 Amorphous NONE Normal [facility] Comment on above: Performed By: #### 2 15613 ####[facility],[address] [place], [place] [address] Bacteria NONE Normal [facility] Comment on above: Performed By: #### 2 62665 ####[facility],[address] [place] [address] 19945 Bilirubin Ql (U) Negative Normal NORMAL: NEGATIVE [facility] Comment on above: Performed By: #### 2 82761 ####[facility],[address] [place] [address] 03410 Casts NONE Normal [facility] Comment on above: Performed By: #### 2 31978 ####[facility],[address] [place] [address] Clarity (U) clear Normal NORMAL: CLEAR [facility] Comment on above: Performed By: #### 2 81736 ####[facility],[address] [place] [address] Color (U) p.yel Normal NORMAL: YELLOW [facility] Comment on above: Performed By: #### 2 89877 ####[facility],[address] [place] [address] Crystals LM Nom (Urine sed) NONE Normal [facility] Comment on above: Performed By: #### 2 78167 ####[facility],[address] [place] [address] 63071 Epi Cells OCC Normal [facility] Comment on above: Performed By: #### 2 30301 ####[facility],[address] [place] [address] 70039 Glucose Ql (U) 250 Abnormal NORMAL: NORMAL [facility] Comment on above: Performed By: #### 2 63017 ####[facility],[address] [place] [address] 38137 Hemoglobin Ql (U) 10 Abnormal NORMAL: NEGATIVE [facility] Comment on above: Performed By: #### 2 59178 ####[facility],[address] [place] [address] 36590 Ketone Negative Normal NORMAL: NEGATIVE [facility] Comment on above: Performed By: #### 2 54683 ####[facility],[address] [place] [address] 49040 Leukocytes Negative Normal NORMAL: NEGATIVE [facility] Comment on above: Performed By: #### 2 16604 ####[facility],[address] [place] [address] Mucous NONE Normal [facility] Comment on above: Performed By: #### 2 71921 ####[facility],[address] [place] [address] Nitrite Ql (U) Negative Normal NORMAL: NEGATIVE [facility] Comment on above: Performed By: #### 2 18882 ####[facility],[address] [place] [address] pH (U) 6 [pH] Normal NORMAL: 5.0-8.0 [facility] Comment on above: Performed By: #### 2 52001 ####[facility],[address] [place] [address] Protein Ql (U) 500 Abnormal NORMAL: NEGATIVE [facility] Comment on above: Performed By: #### 2 94625 ####[facility],[address] [place] [address] Rbc 0-5 Normal 0-3/hpf [facility] Comment on above: Performed By: #### 2 21066 ####[facility],[address] [place] [address] Sp Ostrander 1.015 Normal NORMAL: 1.010-1.030 [facility] Comment on above: Performed By: #### 2 87623 ####[facility],[address] [place] [address] Specimen Type R Normal [facility] Comment on above: Performed By: #### 2 91555 ####[facility],[address] [place] [address] Urinalysis dipstick W Reflex Microscopic panel (U) SEE BELOW Normal [facility] Comment on above: Result Comment: MICR OSCOPIC Performed By: #### 2 16698 ####[facility],[address] [place], [place] [id number] Urobilinog NORM Normal NORMAL: NORMAL [facility] Comment on above: Performed By: #### 2 88389 ####[facility],[address] [place] [address] Wbc 1-5 Normal 0-5/hpf [facility] Comment on above: Performed By: #### 2 24114 ####[facility],[address] [place] [address] Yeast NONE Normal [facility] Comment on above: Performed By: #### 2 80882 ####[facility],[address] [place] [address] Abdomen/Pelvis WITH Contrast on 06-13-2024 Abdomen/Pelvis WITH Contrast [facility] Imaging Services [address] [place] [address] [id number] Abdomen/Pelvis WITH Contrast MR#: [id number] Acct: [id number] Name: CHITO WELLS Rep #: [id number] : 1965 M 58 From: Zeina Zee nd, MD PCP: Dr. Stacey Coulter MD Status: REG CLI Study: Abdomen/Pelvis WITH Contrast Date of Exam: Exam# [id number] Ordering Dr: Wild Sanchez DO PROCEDURE: ABDOMEN/PELVIS WITH CONTRAST 06/13/2024 REASON FOR EXAM: 58-year-old male, abdominal pain, history of non-Hodgkin's lymphoma, history of osteomyelitis in the spine status post hardware removal. TECHNIQUE: Abdomen and pelvis CT with intravenous contrast. Coronal and Sagittal reconstruction series were provided. PATIENT PREPARATION: Per protocol ORAL CONTRAST TYPE: None. CONTRAST: Isovue-300 VOLUME: 100mL One or more dose reduction techniques were used (e.g., Automated exposure control, adjustment of the mA and/or kV according to patient size, use of iterative reconstruction technique. RADIATION DOSE SUMMARY: CTDlvol: 50 mGy DLP: 1200 mGycm COMPARISON: CT abdomen pelvis 07/28/2023. FINDINGS: Lung bases: The lung bases are clear. The heart is normal in size with coronary artery calcifications. Liver: The liver is normal in size with diffuse hepatic steatosis. The main portal veins are patent. No biliary ductal dilation. Gallbladder: Prior cholecystectomy. Spleen: Unremarkable. Pancreas: Diffuse fatty atrophy. Adrenals: Unremarkable adrenal glands. Kidneys: Renal cysts and additional hypodensities, likely cysts. No hydronephrosis or nephrolithiasis. Bladder: The urinary bladder is distended and unremarkable. Reproductive Organs: Unremarkable. Bowel: The bowel loops are normal in caliber. No ascites or pneumoperitoneum. Normal appendix. Lymph nodes: No suspicious lymph node enlargement. Vasculature: Mild diffuse atherosclerotic calcifications are noted. Bones: Stable findings of prior lumbar spinal hardware placement and removal. Severe thoracolumbar spondylosis. CT/Abdomen/Pelvis WITH Contrast IMPRESSION: 1. No acute abdominopelvic finding. 2. Hepatic steatosis. Reading Location: [facility] CC: Dr. Stacey Coulter MD; Wild Sanchez DO [employer] Detailer: Signed Normal [facility] CREATININE FINGERSTICKon Creatinine [Mass/Vol] 1.1 mg/dL Normal 0.70-1.30 [facility] Comment on above: Performed By: #### L 9100.0200 #### [facility] [address]. [place], [place], [id number] EGFR WB > 60.0000 Normal >60 [facility] Comment on above: Performed By: #### L 9100.0200 #### [facility] [address]. [place], [place], [id number] Creatinine measurement at dsideOrdered By: Wild Sanchez on 06-13-2024 Creatinine [Mass/Vol] 1.1 mg/dL 0.70-1.30 [facility] EGFROrdered By: Wild Logan nd on 06-13-2024 Bedside Estimated GFR (eGFR) > 60.0000 mL/min >60 [facility] PHOSPHOLIPASE A2 RECEPTOR AN TIBODY, EDER, FOR MONITORING, SERUMon 06-13-2024 PLA2R, MONITORING, EDER, S 18 RU/mL High [facility] Comment on above: Order Comment: Speci men Type: BLOOD SPECIMEN Ordering Facility: [facility] Address: [address] [place] [address] Result Comment: REFERENCE VALUE <14 RU/mL: Negative >=14 to <20 RU/mL: Borderline >=20 RU/mL: Positive Test Performed by: [facility] [address] [place] [address] [employer] Coordinator: Pilar Seth Ph.D.; CLIA# [id number] Performed By: #### P LA2RM #### [facility] CLIA [id number] [address] [place] [id number] PTH, INTACT [CCL]on 06-06-19 25 PTH, Intact 127 pg/mL High 15- [facility] Comment on above: Result Comment: [facility] [address] [place], [place] [address]Vfhgnp Dwight OBRIEN M.D.[id number] Performed By: #### 2 41432 ####[address] [address] BMP with eGFRon 06-04-2024 AGE 58 years Normal [facility] Comment on above: Performed By: #### 2 85977 ####[facility],[address] [place] [address] Anion gap [Moles/Vol] 9 mmol/L Low 10 - 20 [facility] Comment on above: Performed By: #### 2 99106 ####[facility],[address] [place] [address]26[address] BMP with eGFR Normal [facility] Comment on above: Result Comment: BASI C METABOLIC PANEL Performed By: #### 2 38317 ####[facility],[address] [place] [address] Calcium [Mass/Vol] 8.7 mg/dL Normal 8.5 - 10.1 [facility] Comment on above: Performed By: #### 2 78289 ####[facility],[address] [place] [address] Chloride [Moles/Vol] 103 mmol/L Normal 98 - 107 [facility] Comment on above: Performed By: #### 2 33189 ####[facility],[address] [place] [address] CO2 [Moles/Vol] 31.1 mmol/L Normal 21.0 - 32.0 [facility] Comment on above: Performed By: #### 2 70859 ####[place] [address] Creatinine [Mass/Vol] 1.78 mg/dL High 0.70 - 1.30 [facility] Comment on above: Performed By: #### 2 35295 ####[facility],[address] [place] [address] eGFR 39 ML/MINUTE Low 60 - 999 [facility] Comment on above: Performed By: #### 2 84176 ####[place] [address] eGFR(AA) 48 ML/MINUTE Low 60 - 999 [facility] Comment on above: Result Comment: ACCO RDING TO THE NATIONAL KIDNEY DISEASE EDUCATION PROGRAM(NKDE), A NORMAL eGFRIS A VALUE GREATER THAN OR EQUAL TO 60 ML/MIN/1.73 SQ METERS.CHRONIC KIDNEY DISEASE: <60mL/MIN/1.73 SQ METERSKIDNEY FAILURE: <15mL/MIN/1.73 SQ METERSTHIS TEST SHOULD ONLY BE USED FOR PATIENTS 18 YEARS OF AGE AND OLDER. Performed By: #### 2 57827 ####[facility],[address] [place] [address] Glucose [Mass/Vol] 232 mg/dL High 74 - 106 [facility] Comment on above: Performed By: #### 2 11654 ####[facility],[address] [place] [address] Potassium [Moles/Vol] 3.3 mmol/L Low 3.5 - 5.1 [facility] Comment on above: Performed By: #### 2 13089 ####[facility],[address] [place] [address] Sodium [Moles/Vol] 140 mmol/L Normal 136 - 145 [facility] Comment on above: Performed By: #### 2 18150 ####[facility],[address] [place] [address] Urea nitrogen [Mass/Vol] 32 mg/dL High [facility] Comment on above: Performed By: #### 2 07406 ####[facility],[address] [place] [address] CBC + DIFFon 06-04-2024 Baso # 0.03 x10EE3/UL Normal 0.00 - 0.10 [facility] Comment on above: Performed By: #### 2 27782 ####[facility],[address] [place] [address] Basophils/100 WBC (Bld) 0.4 % Normal 0.0 - 2.0 [facility] Comment on above: Performed By: #### 2 91744 ####[facility],[address] [place] [address] CBC + DIFF Normal [facility] Comment on above: Result Comment: CBC- COMPLETE BLOOD COUNT Performed By: #### 2 84266 ####[facility],[address] [place] [address]876 EO # 0.15 x10EE3/UL Normal 0.00 - 0.50 [facility] Comment on above: Performed By: #### 2 25785 ####[facility],[address] [place] [address] Eosinophils/100 WBC (Bld) 2.1 % Normal 0.0 - 7.0 [facility] Comment on above: Performed By: #### 2 51532 ####[facility],[address] [place] [address] Erythrocyte distribution width (RBC) [Ratio] 14.6 % Normal 12.0 - 15.6 [facility] Comment on above: Performed By: #### 2 93919 ####[facility],[address] [place] [address] Hematocrit (Bld) [Volume fraction] 41.2 % Normal 40.0 - 52.0 [facility] Comment on above: Performed By: #### 2 36467 ####[facility],[address] [place] [address] Hemoglobin (Bld) [Mass/Vol] 13.8 g/dL Normal 13.0 - 17.5 [facility] Comment on above: Result Comment: TEST REPEATED Performed By: #### 2 72239 ####[place] [address] Lymph # 1.17 x10EE3/UL Normal 0.80 - 2.80 [facility] Comment on above: Performed By: #### 2 26064 ####[place] [address] Lymphocytes/100 WBC (Bld) 16.4 % Low 20.0 - 45.0 [facility] Comment on above: Performed By: #### 2 13302 ####[facility],[address] [place], [place] [address] MANUAL DIFF N/A Normal [facility] Comment on above: Performed By: #### 2 87138 ####[place] [address] MCH (RBC) [Entitic mass] 29 pg Normal 27 - 33 [facility] Comment on above: Performed By: #### 2 80814 ####[place] [address] MCHC 34 X10 3 Normal 32 - 36 [facility] Comment on above: Performed By: #### 2 20016 ####[facility],[address] [place] [address] 16716 MCV (RBC) [Entitic vol] 85 fL Normal 81 - 98 [facility] Comment on above: Performed By: #### 2 25887 ####[facility],[address] [place] [address] Jennings # 0.59 x10EE3/UL Normal 0.20 - 1.00 [facility] Comment on above: Performed By: #### 2 75978 ####[facility],[address] [place] [address] 460[address] MONOS % 8.3 % Normal 0.0 - 10.0 [facility] Comment on above: Performed By: #### 2 82509 ####[facility],[address] [place] [address] Morphology Tevin (Bld) [Interp] N/A Normal [facility] Comment on above: Performed By: #### 2 80825 ####[facility],[address] [place] [address] 36091 Neut # 5.19 x10EE3/UL Normal 1.50 - 7.10 [facility] Comment on above: Performed By: #### 2 44265 ####[facility],[address] [place] [address] 07306 Neutrophils/100 WBC (Bld) 72.9 % Normal 46.0 - 76.0 [facility] Comment on above: Performed By: #### 2 17047 ####[facility],[address] [place] [address]71 PLATELET 176 x10EE3/UL Normal 150 - 450 [facility] Comment on above: Performed By: #### 2 10391 ####[facility],[address] [place] [address]2836 Platelet mean volume (Bld) [Entitic vol] 7.7 fL Normal 6.4 - 10.5 [facility] Comment on above: Result Comment: AUTO MATED DIFFERENTIAL Performed By: #### 2 80561 ####[facility],[address] [place] [address] 76589 RBC 4.83 x 10EE6/UL Normal 4.50 - 6.00 [facility] Comment on above: Performed By: #### 2 97646 ####[facility],[address] [place] [address] 63842 WBC 7.1 x 10EE3/UL Normal 4.5 - 10.8 [facility] Comment on above: Performed By: #### 2 55703 ####[facility],[address] [place] [address] PTH-Intact SerPl-mCncon 05-18 Parathyrin.intact [Mass/Vol] 127 pg/mL High 15-65 [facility] Comment on above: Order Comment: Speci men Type: BLOOD SPECIMEN Ordering Facility: [facility] Address: [address] [place] [address] Performed By: #### 2 731-8 #### [facility] CLIA [id number] [address] [place] [address] STATES OF [facility] URIC ACIDon 06-04-2024 Urate [Mass/Vol] 5.9 mg/dL Normal 3.5 - 7.2 [facility] Comment on above: Performed By: #### 2 43128 ####[facility],[address] [place] [address] URINE CREATININE AND PROTEIN RATIOon 06-04-2024 CREATININE UR 26.04 mg/dl Normal [facility] Comment on above: Performed By: #### 2 71989 ####[facility],[address] [place] [address] 80982 PC RATIO 15.54 mg/dL High 0.00 - 10.00 [facility] Comment on above: Performed By: #### 2 25965 ####[facility] [place] [address] 62664 Protein (U) [Mass/Vol] 404.70 mg/dL High 0.00 - 10.00 [facility] Comment on above: Performed By: #### 2 08521 ####[facility],[address] [place] [address]704 VITAMIN D, 25 HYDROXYon 05-18 VitD 15.10 ng/mL Low 30.00 - 100 [facility] Comment on above: Result Comment: 25-O HD3 indicates both endogenous production and supplementation. 25-OHD2 is anindicator of exogenous sources, such as diet or supplementation. Therapy isbased on measurement of Total 25-OHD, with levels <20 ng/mL indicative ofVitamin D deficiency, while levels between 20 ng/mL and 30 ng/mL suggestinsufficiency. Optimal levels are >=30ng/mL.Vitamin D, 25-OH D3 Not EstablishedVitamin D, 25-OH D2 Not Established Performed By: #### 2 42440 ####[facility],[address] [place] [address]14 OPERATIVE PROCEDURESon 05-30 OPERATIVE PROCEDURES Normal [facility] URINE MICROALBUMIN W/CREATIN INE, RANDOMon 05-26-2024 URINE MICROALBUMIN W/CREATININE, RANDOM Normal [facility] Comment on above: Result Comment: SEE SCANNED REPORT Performed By: #### 2 77522 ####[facility],[address] [place] [address]15 ALBUMIN/CREATININE RATIO, UR INEon 05-22-2024 Albumin DL <= 20 mg/L (U) [Mass/Vol] 2030.7 mg/L Normal [facility] Comment on above: Order Comment: Speci men Type: URINE SPECIMEN Ordering Facility: [facility] Address: [address] [place], [place] [address] Performed By: #### U ACR #### [facility] CLIA [id number] [address] [place] [address] [place] Albumin/Creatinine (U) [Mass ratio] 5869 mg/g High <30 [facility] Comment on above: Order Comment: Speci men Type: URINE SPECIMEN Ordering Facility: [facility] Address: [address] , [place] [address] Result Comment: Not calculated Adult Male and Female Nephrotic Criteria: <30 mg/g is considered normal to mildly increased 30-300 mg/g is considered moderately increased >300 mg/g is considered severely increased KDIGO. (2013). KDIGO 2012 Clinical Practice Guideline for the Evaluation and Management of Chronic Kidney Disease. Official Journal of the International Society of Nephrology, 3(1), 1-150. Performed By: #### U ACR #### [facility] CLIA [id number] [address] [place] [address] [place] Creatinine (U) [Mass/Vol] 34.6 mg/dL Normal 20.0-300.0 [facility] Comment on above: Order Comment: Speci men Type: URINE SPECIMEN Ordering Facility: [facility] Address: [address] , [place] [address] Performed By: #### U ACR #### [facility] CLIA [id number] [address] [place], [place] [id number] [place] VITAMIN D, 25 HYDROXYon -0 VitD 17.30 ng/mL Low 30.00 - 100 [facility] Comment on above: Result Comment: 25-O HD3 indicates both endogenous production and supplementation. 25-OHD2 is anindicator of exogenous sources, such as diet or supplementation. Therapy isbased on measurement of Total 25-OHD, with levels <20 ng/mL indicative ofVitamin D deficiency, while levels between 20 ng/mL and 30 ng/mL suggestinsufficiency. Optimal levels are >=30ng/mL.Vitamin D, 25-OH D3 Not EstablishedVitamin D, 25-OH D2 Not Established Performed By: #### 2 28596 ####[facility],[address] [place] [address] 9[address]45 Gastroenterology Visit Repor ton 05-16-2024 Gastroenterology Visit Report [facility] [address] [place] [address] OFFICE VISIT Date of Service: 05/16/24 MR#: [id number] Acct: [id number] Name: CHITO WELLS Rep #: [id number] : 1965 Provider: Wild Sanchez DO Age/Sex: 58/M Location: [facility] Status: Signed Intake Vital Signs 12/13/23 09:39 Height 5 ft 5 in Weight: 267 lb 4 oz BMI 44.4 BP 168/81 H Blood Pressure Location Lt radial Position Sitting Respiration 18 Pulse 62 Pulse Source Monitor Pulse Oximetry (%) 91 Oxygen Delivery Method room air Intake Visit Reasons: Throat issues Chief Complaint: Diabetes Allergies acetaminophen Allergy (Intermediate, Verified 10/04/23 08:05) Other haloperidol (From Haldol) Allergy (Intermediate, Verified 10/04/23 08:05) Other hydrocodone Allergy (Intermediate, Verified 10/04/23 08:05) Other NSAIDS (Non-Steroidal Anti-Inflamma Allergy (Intermediate, Verified 10/04/23 08:05) KIDNEY ISSUES Medications ???Medication ???Instructions ???Recorded ???Confirmed ???Type amlodipine 10 mg tablet 10 mg PO DAILY 09/01/21 05/16/24 H istory ascorbic acid (vitamin C) 500 mg 500 mg PO DAILY 09/01/21 05/16/24 History tablet aspirin 81 mg tablet,delayed 81 mg PO DAILY 09/01/21 05/16/24 H istory release (Adult Low Dose Aspirin) clonidine HCl 0.3 mg tablet 0.3 mg PO TID 09/01/21 05/16/24 Hi story cyclobenzaprine 10 mg tablet 10 mg PO 4X/DAY 09/01/21 05/16/24 History docusate sodium 100 mg tablet 100 mg PO DAILY 09/01/21 05/16/24 History doxycycline hyclate 100 mg tablet 100 mg PO BID 09/01/21 05/16/24 H istory finasteride 5 mg tablet 5 mg PO DAILY 09/01/21 05/16/24 Hi story fluticasone propionate 50 2 spray intranasal BID 09/01/21 History mcg/actuation nasal spray,suspension (Allergy Relief (fluticasone)) gemfibrozil 600 mg tablet 600 mg PO BID 09/01/21 05/16/24 Hi story hydralazine 100 mg tablet 100 mg PO TID 09/01/21 05/16/24 Hi story isosorbide mononitrate 60 mg 60 mg PO DAILY 09/01/21 05/16/24 H istory tablet,extended release 24 hr levetiracetam 500 mg tablet 500 mg PO BID 09/01/21 05/16/24 Hi story (Keppra) loperamide 2 mg tablet 2 mg PO Q4H PRN PRN Diarrhea 09/0105/16/24 History oxycodone 10 mg tablet 10 mg PO 4X/DAY 09/01/21 05/16/24 History polyethylene glycol 3350 17 4 g PO PRN PRN Constipation 05/16/24 History gram/dose oral powder (Miralax) sertraline 100 mg tablet 100 mg PO DAILY 09/01/21 05/16/24 History tamsulosin 0.4 mg capsule (Flomax) 0.4 mg PO BID 09/01/21 05/16/24 History trazodone 300 mg tablet 300 mg PO QHS 09/01/21 05/16/24 Hi story cholecalciferol (vitamin D3) 125 125 mcg PO DAILY 12/07/22 05/16/24 History mcg (5,000 unit) capsule dapagliflozin propanediol 10 mg 10 mg PO DAILY 12/07/22 05/16/24 H istory tablet (Farxiga) bismuth subsalicylate 525 mg/15 mL 1,050 mg PO Q30-60M PRN indigest ion 06/14/23 05/16/24 History oral suspension (Pepto-Bismol Max St) carvedilol 25 mg tablet 50 mg PO BID 06/14/23 05/16/24 His tory duloxetine 30 mg capsule,delayed 30 mg PO BID 06/14/23 05/16/24 His tory release flash glucose scanning reader #1 ea 06/14/23 05/16/24 Rx (FreeStyle Claude 2 [place]) flash glucose sensor (FreeStyle #2 ea 06/14/23 05/16/24 Rx Claude 2 Sensor kit) gabapentin 800 mg tablet 800 mg PO TID 06/14/23 05/16/24 Hi story insulin aspart U-100 100 unit/mL 1 sliding scale dose subcut 05/16/24 History (3 mL) subcutaneous pen (Novolog .COMPLEX FlexPen U-100 Insulin aspart) insulin regular hum U-500 conc 500 105 unit subcut BREAKFAST 05/16/24 History unit/mL subcutaneous soln (Humulin R U-500 (Concentrated) Insulin) ipratropium 0.5 mg-albuterol 3 mg 3 ml inhalation Q6H PRN PRN 06/1305/16/24 History (2.5 mg base)/3 mL nebulization shortness of breath or wheezing soln melatonin 3 mg capsule 3 mg PO HS 06/14/23 05/16/24 Histo ry mirtazapine 7.5 mg tablet 7.5 mg PO QHS 06/14/23 05/16/24 Hi story ondansetron HCl 4 mg tablet 4 mg PO Q8H PRN PRN nausea and 05/16/24 History vomiting pantoprazole 40 mg tablet,delayed 40 mg PO BID 06/14/23 05/16/24 Hi story release rosuvastatin 40 mg tablet 40 mg PO QDAY 06/14/23 05/16/24 Hi story clopidogrel 75 mg tablet (Plavix) 75 mg PO DAILY 10/03/23 05/16/24 History insulin regular hum U-500 conc 500 115 unit subcut LUNCH 10/03/23 0 05/16/24 History unit/mL(3 mL) subcut pen (Humulin R U-500 (Conc) Insulin Kwikpen) insulin regular hum U-500 conc 500 125 unit subcut QHS 10/03/23 History unit/mL(3 mL) subcut pen (Humulin R U-500 (Conc) Insulin Kwikpen) nystatin 100,000 unit/mL oral 1 ml PO TID 14 days #42 mL (more content not included)... Normal [facility] CBC (NO DIFF)on 05-07-2024 CBC panel Auto (Bld) Normal [facility] Comment on above: Result Comment: CBC( WITHOUT DIFFERENTIAL) Performed By: #### 2 25830 ####[facility],[address],[place] [address] Erythrocyte distribution width (RBC) [Ratio] 14.2 % Normal 12.0 - 15.6 [facility] Comment on above: Performed By: #### 2 45934 ####[facility],[address] [place] [address] 01548 Hematocrit (Bld) [Volume fraction] 34.7 % Low 40.0 - 52.0 [facility] Comment on above: Performed By: #### 2 38171 ####[facility],[address] [place] [address] 18288 Hemoglobin (Bld) [Mass/Vol] 11.4 g/dL Low 13.0 - 17.5 [facility] Comment on above: Performed By: #### 2 43404 ####[facility],[address] [place] [address] 68660 MCH (RBC) [Entitic mass] 29 pg Normal 27 - 33 [facility] Comment on above: Performed By: #### 2 19060 ####[facility],[address] [place] [address] 72030 MCHC 33 X10 3 Normal 32 - 36 [facility] Comment on above: Performed By: #### 2 10732 ####[facility],[address] [place] [address] 85600 MCV (RBC) [Entitic vol] 87 fL Normal 81 - 98 [facility] Comment on above: Performed By: #### 2 13635 ####[facility],[address] [place] [address] 26713 PLATELET 157 x10EE3/UL Normal 150 - 450 [facility] Comment on above: Performed By: #### 2 81281 ####[facility],[address] [place] [address] 69496 Platelet mean volume (Bld) [Entitic vol] 7.1 fL Normal 6.4 - 10.5 [facility] Comment on above: Performed By: #### 2 48334 ####[facility],[address] [place] [address] 10868 RBC 3.98 x 10EE6/UL Low 4.50 - 6.00 [facility] Comment on above: Performed By: #### 2 68709 ####[facility],[address] [place] [address] 91895 WBC 5.8 x 10EE3/UL Normal 4.5 - 10.8 [facility] Comment on above: Performed By: #### 2 52082 ####[facility],[address] [place] [address] 14072 CMP with eGFRon 05-07-2024 AGE 58 years Normal [facility] Comment on above: Performed By: #### 2 37977 ####[facility],[address] [place] [address] 95586 Albumin [Mass/Vol] 2.6 g/dL Low 3.4 - 5.0 [facility] Comment on above: Performed By: #### 2 38573 ####[facility],[address] [place] [address] 25509 Albumin/Globulin [Mass ratio] 0.7 {ratio} Low 0.9 - 1.6 [facility] Comment on above: Performed By: #### 2 00967 ####[facility],[address] [place] [address] 84869 ALK PHOS 131 U/L High 46 - 116 [facility] Comment on above: Performed By: #### 2 73255 ####[facility],[address] [place] [address] 75573 ALT [Catalytic activity/Vol] 14 U/L Low 16 - 63 [facility] Comment on above: Performed By: #### 2 36789 ####[facility],[address] [place] [address] 67584 Anion gap [Moles/Vol] 14 mmol/L Normal 10 - 20 [facility] Comment on above: Performed By: #### 2 23963 ####[facility],[address] [place] [address] 54902 AST [Catalytic activity/Vol] 14 U/L Low 15 - 37 [facility] Comment on above: Performed By: #### 2 01855 ####[facility],[address] [place] [address] 77727 B/C RATIO 12 ratio Normal 0 - 30 [facility] Comment on above: Performed By: #### 2 30210 ####[facility],[address] [place] [address] 42885 Bilirubin [Mass/Vol] 0.2 mg/dL Normal 0.2 - 1.0 [facility] Comment on above: Performed By: #### 2 32789 ####[facility],[address] [place] [address] 77418 Calcium [Mass/Vol] 8.1 mg/dL Low 8.5 - 10.1 [facility] Comment on above: Performed By: #### 2 18174 ####[facility],[address] [place] [address] 05188 Chloride [Moles/Vol] 107 mmol/L Normal 98 - 107 [facility] Comment on above: Performed By: #### 2 56793 ####[facility],[address] [place] [address] 19216 CMP with eGFR Normal [facility] Comment on above: Result Comment: COMP REHENSIVE METABOLIC PANEL Performed By: #### 2 12857 ####[facility],[address] [place] [address] 33581 CO2 [Moles/Vol] 27.7 mmol/L Normal 21.0 - 32.0 [facility] Comment on above: Performed By: #### 2 92300 ####[facility],[address] [place] [address] 69792 Creatinine [Mass/Vol] 1.95 mg/dL High 0.70 - 1.30 [facility] Comment on above: Performed By: #### 2 66839 ####[facility],[address] [place] [address] 96077 eGFR 36 ML/MINUTE Low 60 - 999 [facility] Comment on above: Performed By: #### 2 06828 ####[facility],[address] [place] [address] 32891 eGFR(AA) 43 ML/MINUTE Low 60 - 999 [facility] Comment on above: Result Comment: ACCO RDING TO THE NATIONAL KIDNEY DISEASE EDUCATION PROGRAM(NKDE), A NORMAL eGFRIS A VALUE GREATER THAN OR EQUAL TO 60 ML/MIN/1.73 SQ METERS.CHRONIC KIDNEY DISEASE: <60mL/MIN/1.73 SQ METERSKIDNEY FAILURE: <15mL/MIN/1.73 SQ METERSTHIS TEST SHOULD ONLY BE USED FOR PATIENTS 18 YEARS OF AGE AND OLDER. Performed By: #### 2 85516 ####[address] [address] Globulin (S) [Mass/Vol] 3.9 g/dL High 1.5 - 3.8 [facility] Comment on above: Performed By: #### 2 79673 ####[place] [id number] Glucose [Mass/Vol] 70 mg/dL Low 74 - 106 [facility] Comment on above: Performed By: #### 2 75162 ####[address] [address] Potassium [Moles/Vol] 3.8 mmol/L Normal 3.5 - 5.1 [facility] Comment on above: Performed By: #### 2 54441 ####[address] [address]164 Protein [Mass/Vol] 6.5 g/dL Normal 6.4 - 8.2 [facility] Comment on above: Performed By: #### 2 61662 ####[place] [id number] Sodium [Moles/Vol] 145 mmol/L Normal 136 - 145 [facility] Comment on above: Performed By: #### 2 95383 ####[facility],[address] [place] [address] 69099 Urea nitrogen [Mass/Vol] 24 mg/dL High [facility] Comment on above: Performed By: #### 2 96493 ####[facility],[address] [place] [address] 13874 TSHon 05-07-2024 TSH Qn 1.44 m[IU]/L Normal 0.35 - 3.74 [facility] Comment on above: Performed By: #### 2 81405 ####[facility],[address] [place] [address] 07517 VITAMIN D, 25 HYDROXYon 04-20 VitD 16.50 ng/mL Low 30.00 - 100 [facility] Comment on above: Result Comment: 25-O HD3 indicates both endogenous production and supplementation. 25-OHD2 is anindicator of exogenous sources, such as diet or supplementation. Therapy isbased on measurement of Total 25-OHD, with levels <20 ng/mL indicative ofVitamin D deficiency, while levels between 20 ng/mL and 30 ng/mL suggestinsufficiency. Optimal levels are >=30ng/mL.Vitamin D, 25-OH D3 Not EstablishedVitamin D, 25-OH D2 Not Established Performed By: #### 2 66354 ####[facility],[address] [place] [address] 25581 CBC (NO DIFF)on 04-22-2024 CBC panel Auto (Bld) Normal [facility] Comment on above: Result Comment: CBC( WITHOUT DIFFERENTIAL) Performed By: #### 2 84526 ####[facility],[address] [place] [address] 52568 Erythrocyte distribution width (RBC) [Ratio] 14.2 % Normal 12.0 - 15.6 [facility] Comment on above: Performed By: #### 2 67766 ####[facility],[address] [place] [address] 27510 Hematocrit (Bld) [Volume fraction] 36.7 % Low 40.0 - 52.0 [facility] Comment on above: Performed By: #### 2 44664 ####[facility],[address] [place] [address] 95800 Hemoglobin (Bld) [Mass/Vol] 12.2 g/dL Low 13.0 - 17.5 [facility] Comment on above: Performed By: #### 2 50122 ####[facility],[address] [place] [address] 32527 MCH (RBC) [Entitic mass] 29 pg Normal 27 - 33 [facility] Comment on above: Performed By: #### 2 77219 ####[facility],[address] [place] [address] 71747 MCHC 33 X10 3 Normal 32 - 36 [facility] Comment on above: Performed By: #### 2 81148 ####[facility],[address] [place] [address] 19814 MCV (RBC) [Entitic vol] 86 fL Normal 81 - 98 [facility] Comment on above: Performed By: #### 2 01923 ####[facility],[address] [place] [address] 00381 PLATELET 118 x10EE3/UL Low 150 - 450 [facility] Comment on above: Performed By: #### 2 97472 ####[facility],[address] [place] [address] 66066 Platelet mean volume (Bld) [Entitic vol] 7.6 fL Normal 6.4 - 10.5 [facility] Comment on above: Performed By: #### 2 51982 ####[facility],[address] [place] [address] 53418 RBC 4.28 x 10EE6/UL Low 4.50 - 6.00 [facility] Comment on above: Performed By: #### 2 32021 ####[facility],[address] [place] [address] 60920 WBC 4.2 x 10EE3/UL Low 4.5 - 10.8 [facility] Comment on above: Performed By: #### 2 92495 ####[facility],[address] [place] [address] 99183 CMP with eGFRon 04-22-2024 AGE 58 years Normal [facility] Comment on above: Performed By: #### 2 44213 ####[facility],[address] [place] [address] 19759 Albumin [Mass/Vol] 2.2 g/dL Low 3.4 - 5.0 [facility] Comment on above: Performed By: #### 2 40149 ####[facility],[address] [place] [address] 04188 Albumin/Globulin [Mass ratio] 0.6 {ratio} Low 0.9 - 1.6 [facility] Comment on above: Performed By: #### 2 24377 ####[facility],[address] [place] [address] 39744 ALK PHOS 118 U/L High 46 - 116 [facility] Comment on above: Performed By: #### 2 63919 ####[facility],[address] [place] [address] 28926 ALT [Catalytic activity/Vol] 13 U/L Low 16 - 63 [facility] Comment on above: Performed By: #### 2 40512 ####[facility],[address] [place] [address] 73556 Anion gap [Moles/Vol] 9 mmol/L Low 10 - 20 [facility] Comment on above: Performed By: #### 2 73288 ####[facility],[address] [place] [address] 88540 AST [Catalytic activity/Vol] 23 U/L Normal 15 - 37 [facility] Comment on above: Performed By: #### 2 19352 ####[facility],[address] [place] [address] 47760 B/C RATIO 13 ratio Normal 0 - 30 [facility] Comment on above: Performed By: #### 2 21766 ####[facility],[address] [place] [address] 43107 Bilirubin [Mass/Vol] 0.2 mg/dL Normal 0.2 - 1.0 [facility] Comment on above: Performed By: #### 2 75096 ####[facility],[address] [place] [address] 53600 Calcium [Mass/Vol] 8.4 mg/dL Low 8.5 - 10.1 [facility] Comment on above: Performed By: #### 2 02734 ####[facility],[address] [place] [address] 98451 Chloride [Moles/Vol] 108 mmol/L High 98 - 107 [facility] Comment on above: Performed By: #### 2 12340 ####[facility],[address] [place] [address] 44304 CMP with eGFR Normal [facility] Comment on above: Result Comment: COMP REHENSIVE METABOLIC PANEL Performed By: #### 2 63528 ####[facility],[address] [place] [address] 48888 CO2 [Moles/Vol] 29.4 mmol/L Normal 21.0 - 32.0 [facility] Comment on above: Performed By: #### 2 14993 ####[facility],[address] [place] [address] 00288 Creatinine [Mass/Vol] 1.94 mg/dL High 0.70 - 1.30 [facility] Comment on above: Performed By: #### 2 06309 ####[facility],[address] [place] [address] 19667 eGFR 36 ML/MINUTE Low 60 - 999 [facility] Comment on above: Performed By: #### 2 17805 ####[facility],[address] [place] [address] 32099 eGFR(AA) 43 ML/MINUTE Low 60 - 999 [facility] Comment on above: Result Comment: ACCO RDING TO THE NATIONAL KIDNEY DISEASE EDUCATION PROGRAM(NKDE), A NORMAL eGFRIS A VALUE GREATER THAN OR EQUAL TO 60 ML/MIN/1.73 SQ METERS.CHRONIC KIDNEY DISEASE: <60mL/MIN/1.73 SQ METERSKIDNEY FAILURE: <15mL/MIN/1.73 SQ METERSTHIS TEST SHOULD ONLY BE USED FOR PATIENTS 18 YEARS OF AGE AND OLDER. Performed By: #### 2 70479 ####[facility],[address] [place] [address] 77345 Globulin (S) [Mass/Vol] 3.7 g/dL Normal 1.5 - 3.8 [facility] Comment on above: Performed By: #### 2 80163 ####[facility],[address] [place] [address] 85644 Glucose [Mass/Vol] 155 mg/dL High 74 - 106 [facility] Comment on above: Performed By: #### 2 09240 ####[facility],[address] [place] [address] 18146 Potassium [Moles/Vol] 3.7 mmol/L Normal 3.5 - 5.1 [facility] Comment on above: Performed By: #### 2 75876 ####[facility],[address] [place] [address] 60047 Protein [Mass/Vol] 5.9 g/dL Low 6.4 - 8.2 [facility] Comment on above: Performed By: #### 2 72195 ####[facility],[address] [place] [address] 39969 Sodium [Moles/Vol] 143 mmol/L Normal 136 - 145 [facility] Comment on above: Performed By: #### 2 60019 ####[facility],[address] [place] [address] [place] [address] Urea nitrogen [Mass/Vol] 26 mg/dL High 7 - 18 [facility] Comment on above: Performed By: #### 2 40881 ####[facility],[address] [place] [address] [place] [address] MAGNESIUMon 04-22-2024 Magnesium [Mass/Vol] 2.3 mg/dL Normal 1.8 - 2.4 [facility] Comment on above: Performed By: #### 2 02168 ####[facility],[address] [place] [address] [place] [address] CLAMP OPERATOR REPORTon 04-18-19 25 CLAMP OPERATOR REPORT Normal [facility] PTH, INTACT [CCL]on 01-23-20 24 PTH, Intact 86 pg/mL High 15-65 [facility] Comment on above: Result Comment: [facility] [place] [id number] III, M.D.[id number] Performed By: #### 2 54068 ####[facility],[address] [place] [address] [place] [address] VITAMIN D, 1,25 - DIHYDROXY [CCL]on 01-23-2024 Vit D,1,25 Dihydroxy 37.8 pg/mL Normal 19.9-79.3 [facility] Comment on above: Result Comment: [facility] [place], [place] [address]ShekeqHo Quintanilla III, M.D.[id number] Performed By: #### 2 20680 ####[facility],[address] [place] [address] [place] [address] 1,25-dihydroxyvitamin D3 [Ma ss/Vol]on 01-22-2024 VIT D1,25 DIHYDROXY 37.8 pg/mL Normal 19.9-79.3 [facility] Comment on above: Order Comment: Speci men Type: BLOOD SPECIMEN Ordering Facility: [facility] Address: [address] [place] [address] Performed By: #### 1 649-3 #### [facility] CLIA [id number] [address] [place] [address] OF [facility] BMP with eGFRon 01-22-2024 AGE 58 years Normal [facility] Comment on above: Performed By: #### 2 44946 ####[facility],[address] [place], [place] [address] Anion gap [Moles/Vol] 12 mmol/L Normal 10 - 20 [facility] Comment on above: Performed By: #### 2 66803 ####[facility],[address] [place] [address] BMP with eGFR Normal [facility] Comment on above: Result Comment: BASI C METABOLIC PANEL Performed By: #### 2 47658 ####[facility],[address] [place] [address] Calcium [Mass/Vol] 9.0 mg/dL Normal 8.5 - 10.1 [facility] Comment on above: Performed By: #### 2 88626 ####[facility],[address] [place] [address] Chloride [Moles/Vol] 106 mmol/L Normal 98 - 107 [facility] Comment on above: Performed By: #### 2 71059 ####[facility],[address] [place] [address] 49553 CO2 [Moles/Vol] 32.0 mmol/L Normal 21.0 - 32.0 [facility] Comment on above: Performed By: #### 2 06980 ####[facility],[address] [place] [address] 68742 Creatinine [Mass/Vol] 1.72 mg/dL High 0.70 - 1.30 [facility] Comment on above: Performed By: #### 2 65687 ####[facility],[address] [place] [address] 09420 eGFR 41 ML/MINUTE Low 60 - 999 [facility] Comment on above: Performed By: #### 2 18621 ####[facility],[address] [place] [address] 80641 eGFR(AA) 50 ML/MINUTE Low 60 - 999 [facility] Comment on above: Result Comment: ACCO RDING TO THE NATIONAL KIDNEY DISEASE EDUCATION PROGRAM(NKDE), A NORMAL eGFRIS A VALUE GREATER THAN OR EQUAL TO 60 ML/MIN/1.73 SQ METERS.CHRONIC KIDNEY DISEASE: <60mL/MIN/1.73 SQ METERSKIDNEY FAILURE: <15mL/MIN/1.73 SQ METERSTHIS TEST SHOULD ONLY BE USED FOR PATIENTS 18 YEARS OF AGE AND OLDER. Performed By: #### 2 42097 ####[facility],[address] [place] [address] 23351 Glucose [Mass/Vol] 83 mg/dL Normal 74 - 106 [facility] Comment on above: Performed By: #### 2 78005 ####[facility],[address] [place] [address] 22497 Potassium [Moles/Vol] 3.7 mmol/L Normal 3.5 - 5.1 [facility] Comment on above: Performed By: #### 2 02462 ####[facility],[address] [place] [address] 53764 Sodium [Moles/Vol] 146 mmol/L High 136 - 145 [facility] Comment on above: Performed By: #### 2 06249 ####[facility],[address] [place] [address] 18451 Urea nitrogen [Mass/Vol] 19 mg/dL High 7 - 18 [facility] Comment on above: Performed By: #### 2 40569 ####[facility],[address] [place] [address] 47831 CBC + DIFFon 01-22-2024 ATY LYMP 0 % Normal [facility] Comment on above: Performed By: #### 2 30009 ####[facility],[address] [place] [address] 83294 BANDS 2 % Normal 0 - 5 [facility] Comment on above: Performed By: #### 2 63512 ####[facility],[address] [place] [address] 05931 Baso # 0.03 x10EE3/UL Normal 0.00 - 0.10 [facility] Comment on above: Performed By: #### 2 55865 ####[facility],[address] [place] [address] 07311 Basophils/100 WBC (Bld) 0.5 % Normal 0.0 - 2.0 [facility] Comment on above: Performed By: #### 2 57769 ####[facility],[address] [place] [address] 14336 Basophils/100 WBC (Bld) 1.0 % Normal 0.0 - 2.0 [facility] Comment on above: Performed By: #### 2 89157 ####[facility],[address] [place] [address] 49397 CBC + DIFF Normal [facility] Comment on above: Result Comment: CBC- COMPLETE BLOOD COUNT Performed By: #### 2 16793 ####[facility],[address] [place] [address] 07669 CELL COUNT 100 Normal [facility] Comment on above: Performed By: #### 2 90961 ####[facility],[address] [place] [address] 06780 EO 4.0 % Normal 0.0 - 7.0 [facility] Comment on above: Performed By: #### 2 26723 ####[facility],[address] [place] [address] 06292 EO # 0.31 x10EE3/UL Normal 0.00 - 0.50 [facility] Comment on above: Performed By: #### 2 79122 ####[facility],[address] [place] [address] 29720 Eosinophils/100 WBC (Bld) 6.5 % Normal 0.0 - 7.0 [facility] Comment on above: Performed By: #### 2 95218 ####[facility],[address] [place], [place] [address] Erythrocyte distribution width (RBC) [Ratio] 15.7 % High 12.0 - 15.6 [facility] Comment on above: Performed By: #### 2 88680 ####[facility],[address] [place] [address] Hematocrit (Bld) [Volume fraction] 38.2 % Low 40.0 - 52.0 [facility] Comment on above: Performed By: #### 2 05863 ####[facility],[address] [place] [address] Hemoglobin (Bld) [Mass/Vol] 12.3 g/dL Low 13.0 - 17.5 [facility] Comment on above: Performed By: #### 2 82070 ####[facility],[address] [place] [address] Lymph # 0.81 x10EE3/UL Normal 0.80 - 2.80 [facility] Comment on above: Performed By: #### 2 46079 ####[facility],[address] [place], [place] [address] Lymphocytes/100 WBC (Bld) 16.8 % Low 20.0 - 45.0 [facility] Comment on above: Performed By: #### 2 12822 ####[facility],[address] [place] [address] 36255 Lymphocytes/100 WBC (Bld) 19 % Low 20 - 45 [facility] Comment on above: Performed By: #### 2 40326 ####[facility],[address] [place] [address] MANUAL DIFF SEE BELOW Normal [facility] Comment on above: Performed By: #### 2 67272 ####[facility],[address] [place] [address] MCH (RBC) [Entitic mass] 27 pg Normal 27 - 33 [facility] Comment on above: Performed By: #### 2 28368 ####[facility],[address] [place] [address] MCHC 32 X10 3 Normal 32 - 36 [facility] Comment on above: Performed By: #### 2 80691 ####[facility],[address] [place] [address] MCV (RBC) [Entitic vol] 82 fL Normal 81 - 98 [facility] Comment on above: Performed By: #### 2 86238 ####[facility],[address] [place] [address] META 0 % Normal 0 - 1 [facility] Comment on above: Performed By: #### 2 02409 ####[facility],[address] [place] [address] Metamyelocytes/100 WBC (Bld) 0 % Normal [facility] Comment on above: Performed By: #### 2 70979 ####[facility],[address] [place] [address] Jennings # 0.57 x10EE3/UL Normal 0.20 - 1.00 [facility] Comment on above: Performed By: #### 2 70417 ####[facility],[address] [place] [address] MONOS 10 % Normal 0 - 10 [facility] Comment on above: Performed By: #### 2 71191 ####[facility],[address] [place] [address] MONOS % 11.8 % High 0.0 - 10.0 [facility] Comment on above: Performed By: #### 2 43692 ####[facility],[address] [place] [address] Morphology Tevin (Bld) [Interp] NORMAL Normal [facility] Comment on above: Performed By: #### 2 93048 ####[facility],[address] [place] [address] 59276 Neut # 3.11 x10EE3/UL Normal 1.50 - 7.10 [facility] Comment on above: Performed By: #### 2 43361 ####[facility],[address] [place] [address] 31730 Neutrophils/100 WBC (Bld) 64.5 % Normal 46.0 - 76.0 [facility] Comment on above: Performed By: #### 2 48746 ####[facility],[address] [place] [address] 06353 NRBC 0 /100 Normal [facility] Comment on above: Performed By: #### 2 46513 ####[facility],[address] [place] [address] 40970 PLATELET 141 x10EE3/UL Low 150 - 450 [facility] Comment on above: Performed By: #### 2 04404 ####[facility],[address] [place] [address] 48439 Platelet mean volume (Bld) [Entitic vol] 7.6 fL Normal 6.4 - 10.5 [facility] Comment on above: Result Comment: AUTO MATED DIFFERENTIAL Performed By: #### 2 77511 ####[facility],[address] [place] [address] 79852 RBC 4.64 x 10EE6/UL Normal 4.50 - 6.00 [facility] Comment on above: Performed By: #### 2 32611 ####[facility],[address] [place] [address] SEGS 64 % Normal 46 - 76 [facility] Comment on above: Performed By: #### 2 [id number] ####[facility],[address] [place] [address]39 WBC 4.8 x 10EE3/UL Normal 4.5 - 10.8 [facility] Comment on above: Performed By: #### 2 [id number] ####[facility],[address] [place] [address] 133[address] OTHER 0 Normal [facility] Comment on above: Performed By: #### 2 [id number] ####[facility],[address] [place] [address]12 PTH-Intact SerPl-mCncon 11-0 Parathyrin.intact [Mass/Vol] 86 pg/mL High 15-65 [facility] Comment on above: Order Comment: Speci men Type: BLOOD SPECIMEN Ordering Facility: [facility] Address: [address] [place] [address] Performed By: #### 2 731-8 #### [facility] CLIA [id number] [address] [place] [address] [place] URIC ACIDon 01-22-2024 Urate [Mass/Vol] 4.9 mg/dL Normal 3.5 - 7.2 [facility] Comment on above: Performed By: #### 2 23977 ####[facility],[address] [place] [address]74 URINE CREATININE AND PROTEIN RATIOon 01-22-2024 CREATININE UR 36.01 mg/dl Normal [facility] Comment on above: Performed By: #### 2 [id number] ####[facility],[address] [place] [address]275 PC RATIO 8.59 mg/dL Normal 0.00 - 10.00 [facility] Comment on above: Performed By: #### 2 [id number] ####[facility],[address] [place] [address] Protein (U) [Mass/Vol] 309.50 mg/dL High 0.00 - 10.00 [facility] Comment on above: Performed By: #### 2 [id number] ####[facility],[address] [place] [address] .Auto Diffon 09-29-2023 Basophil, Absolute 0.0 10 3/mcL Normal 0.0-0.3 [facility] ([place] Comment on above: Performed By: #### G FR, ANEU, BMP, ADIFF, CBC #### [address] [address] Basophils/100 WBC (Bld) 0.1 % Normal 0.0-2.5 [facility] ([place] Comment on above: Performed By: #### G FR, ANEU, BMP, ADIFF, CBC #### [address] [address] Eosinophil, Absolute 0.0 10 3/mcL Normal 0.0-0.7 [facility] ([place]) Comment on above: Performed By: #### G FR, ANEU, BMP, ADIFF, CBC #### [address] [address] Eosinophils/100 WBC (Bld) 0.1 % Normal 0.0-6.0 [facility] ([place] Comment on above: Performed By: #### G FR, ANEU, BMP, ADIFF, CBC #### [address] [address] Lymphocyte, Absolute 0.4 10 3/mcL Low 0.9-4.3 [facility] ([place]) Comment on above: Performed By: #### G FR, ANEU, BMP, ADIFF, CBC #### [address] [address] Lymphocytes/100 WBC (Bld) 5.8 % Low 20.0-40.0 [facility] ([place] Comment on above: Performed By: #### G FR, ANEU, BMP, ADIFF, CBC #### [address] [address] Monocyte, Absolute 0.4 10 3/mcL Normal 0.1-1.4 [facility] ([place] Comment on above: Performed By: #### G FR, ANEU, BMP, ADIFF, CBC #### [address] [address] Monocytes/100 WBC (Bld) 5.1 % Normal 2.0-13.0 [facility] ([place] Comment on above: Performed By: #### G FR, ANEU, BMP, ADIFF, CBC #### [address] [address] Neutrophils/100 WBC (Bld) 88.9 % High 50.0-75.0 [facility] ([place] Comment on above: Performed By: #### G FR, ANEU, BMP, ADIFF, CBC #### [address] [address] .GFRon 09-29-2023 GFR 29 ml/min/1.73sqm Normal [facility] ([place] Comment on above: Result Comment: GFR Population mean for , Non- Americans Ages 20-29 = 116 mL/min/1.73 sq.m. Ages 30-39 = 107 mL/min/1.73 sq.m. Ages 40-49 = 99 mL/min/1.73 sq.m. Ages 50-59 = 93 mL/min/1.73 sq.m. Ages 60-69 = 85 mL/min/1.73 sq.m. Ages 70+ = 75 mL/min/1.73 sq.m. Chronic Kidney Disease: Less than 60 mL/min/1.73 square meters End Stage Renal Disease: Less than 15 mL/min/1.73 square meters Performed By: #### G FR, ANEU, BMP, ADIFF, CBC #### [address] [address] GFR Non- 24 ml/min/1.73sqm Normal [facility] ([place] Comment on above: Result Comment: GFR Population mean for , Non- Americans Ages 20-29 = 116 mL/min/1.73 sq.m. Ages 30-39 = 107 mL/min/1.73 sq.m. Ages 40-49 = 99 mL/min/1.73 sq.m. Ages 50-59 = 93 mL/min/1.73 sq.m. Ages 60-69 = 85 mL/min/1.73 sq.m. Ages 70+ = 75 mL/min/1.73 sq.m. Chronic Kidney Disease: Less than 60 mL/min/1.73 square meters End Stage Renal Disease: Less than 15 mL/min/1.73 square meters Performed By: #### G FR, ANEU, BMP, ADIFF, CBC #### [address] [address] .NEUABSon 09-29-2023 Neutrophil, Absolute 6.6 10 3/mcL Normal 2.3-8.1 [facility] ([place] Comment on above: Performed By: #### G FR, ANEU, BMP, ADIFF, CBC #### [place] [address] BMPon 09-29-2023 BUN/Creatinine Ratio 14.0 ratio Normal 10.0-22.0 [facility] ([place] Comment on above: Performed By: #### G FR, ANEU, BMP, ADIFF, CBC #### [place] [address] Calcium [Mass/Vol] 8.9 mg/dL Normal 8.7-10.4 [facility] ([place]) Comment on above: Performed By: #### G FR, ANEU, BMP, ADIFF, CBC #### [place] [address] Chloride [Moles/Vol] 103 mmol/L Normal 98-110 [facility] ([place] Comment on above: Performed By: #### G FR, ANEU, BMP, ADIFF, CBC #### [place] [address] CO2 [Moles/Vol] 23 mmol/L Normal 22-32 [facility] ([place] Comment on above: Performed By: #### G FR, ANEU, BMP, ADIFF, CBC #### [address] [address] Creatinine [Mass/Vol] 2.72 mg/dL High 0.60-1.40 [facility] ([place] Comment on above: Performed By: #### G FR, ANEU, BMP, ADIFF, CBC #### [place] [address] Electrolyte Balance 8.0 mEq/L Normal 4.0-15.0 [facility] ([place]) Comment on above: Performed By: #### G FR, ANEU, BMP, ADIFF, CBC #### [place] [address] Glucose [Mass/Vol] 278 mg/dL High 70-110 [facility] ([place] Comment on above: Performed By: #### G FR, ANEU, BMP, ADIFF, CBC #### [place] [id number] Potassium [Moles/Vol] 4.6 mmol/L Normal 3.5-5.0 [facility] ([place] Comment on above: Performed By: #### G FR, ANEU, BMP, ADIFF, CBC #### [place] [address] Sodium [Moles/Vol] 134 mmol/L Low 136-145 [facility] ([place] Comment on above: Performed By: #### G FR, ANEU, BMP, ADIFF, CBC #### [place] [address] Urea nitrogen [Mass/Vol] 38.0 mg/dL High 8.0-22.0 [facility] ([place] Comment on above: Performed By: #### G FR, ANEU, BMP, ADIFF, CBC #### [place] [id number] CBCon 09-29-2023 Erythrocyte distribution width (RBC) [Ratio] 16.0 % High 11.5-15.5 [facility] ([place] Comment on above: Performed By: #### G FR, ANEU, BMP, ADIFF, CBC #### [place] [address] Hematocrit (Bld) [Volume fraction] 31.6 % Low 40.0-52.0 [facility] ([place] Comment on above: Performed By: #### G FR, ANEU, BMP, ADIFF, CBC #### [place] [address] Hgb 10.8 G/dL Low 13.0-17.5 [facility] ([place] Comment on above: Performed By: #### G FR, ANEU, BMP, ADIFF, CBC #### [facility] [address] [place], [place] [address] MCH (RBC) [Entitic mass] 28.4 pg Normal 27.0-33.0 [facility] ([place] Comment on above: Performed By: #### G FR, ANEU, BMP, ADIFF, CBC #### [place] [address] MCHC 34.1 G/dL Normal 32.0-36.0 [facility] ([place] Comment on above: Performed By: #### G FR, ANEU, BMP, ADIFF, CBC #### [place] [address] MCV (RBC) [Entitic vol] 83.3 fL Normal 81.0-100.0 [facility] ([place] Comment on above: Performed By: #### G FR, ANEU, BMP, ADIFF, CBC #### [place] [address] Platelet 120 10 3/mcL Low 150-450 [facility] [place] Comment on above: Performed By: #### G FR, ANEU, BMP, ADIFF, CBC #### [place] [address] Platelet mean volume (Bld) [Entitic vol] 7.7 fL Normal 6.4-10.5 [facility] ([place] Comment on above: Performed By: #### G FR, ANEU, BMP, ADIFF, CBC #### [place] [address] RBC 3.79 10 6/mcL Low 4.50-6.00 [facility] ([place] Comment on above: Performed By: #### G FR, ANEU, BMP, ADIFF, CBC #### [place] [address] WBC 7.4 10 3/mcL Normal 4.5-10.8 [facility] ([place] Comment on above: Performed By: #### G FR, ANEU, BMP, ADIFF, CBC #### [place] [address] HFPon 09-29-2023 Bili Indirect 0.1 mg/dL Normal 0.1-10.0 [facility] ([place] Comment on above: Performed By: #### G FR, ANEU, BMP, ADIFF, CBC #### [place] [address] Albumin Level 3.3 G/dL Normal 3.2-4.8 [facility] ([place] Comment on above: Performed By: #### G FR, ANEU, BMP, ADIFF, CBC #### [place] [address] Albumin/Globulin [Mass ratio] 1.0 {ratio} Normal 0.9-1.6 [facility] ([place] Comment on above: Performed By: #### G FR, ANEU, BMP, ADIFF, CBC #### [place] [address] ALP [Catalytic activity/Vol] 94 U/L Normal 38-126 [facility] ([place] Comment on above: Performed By: #### G FR, ANEU, BMP, ADIFF, CBC #### [place] [address] ALT [Catalytic activity/Vol] 12 U/L Normal 12-55 [facility] ([place] Comment on above: Performed By: #### G FR, ANEU, BMP, ADIFF, CBC #### [place] [address] AST [Catalytic activity/Vol] 20 U/L Normal 8-34 [facility] ([place] Comment on above: Performed By: #### G FR, ANEU, BMP, ADIFF, CBC #### [place] [address] Bili Direct 0.1 mg/dL Normal 0.0-0.4 [facility] ([place] Comment on above: Result Comment: Use of this assay is not recommended for patients undergoing treatment with eltrombopag due to the potential for falsely elevated results. Performed By: #### G FR, ANEU, BMP, ADIFF, CBC #### [place] [address] Bili Total 0.20 mg/dL Normal 0.20-1.20 [facility] ([place] Comment on above: Result Comment: Use of this assay is not recommended for patients undergoing treatment with eltrombopag due to the potential for falsely elevated results. Performed By: #### G FR, ANEU, BMP, ADIFF, CBC #### [facility] [address] [place] [address] Globulin 3.4 G/dL Normal 1.5-3.8 [facility] ([place] Comment on above: Performed By: #### G FR, ANEU, BMP, ADIFF, CBC #### [facility] [address] [place] [address] Total Protein 6.7 G/dL Normal 5.7-8.2 [facility] ([place] Comment on above: Result Comment: No te - New Reference Range in effect 19 Performed By: #### G FR, ANEU, BMP, ADIFF, CBC #### [facility] [address] [place] [address] LABORATORYOrdered By: Carolina Rivera on 09-29-2023 Blood Glucose Testing Reason Routine (09/29/23 4:52 PM) [facility] Work Phone: Glucose [Mass/Vol] 201 mg/dL High 70 - 110 mg/dL [facility] Work Phone: LABORATORYOrdered By: Beryl Feliciano on 09-29-2023 Glucose [Mass/Vol] 249 mg/dL [facility] Work Phone: LABORATORYOrdered By: Tiffany Vásquez on 09-29-2023 Blood Glucose Testing Reason Routine (09/29/23 11:19 AM) [facility] Work Phone: Glucose [Mass/Vol] 263 mg/dL [facility] Work Phone: LABORATORYOrdered By: SYSTEM SYSTEM on 09-29-2023 Albumin BCP dye [Mass/Vol] 3.3 G/dL Normal 3.2 - 4.8 G/dL ADM SS Albumin/Globulin [Mass ratio] 1.0 {ratio} Normal 0.9 - 1.6 ratio ADM SS ALP [Catalytic activity/Vol] 94 U/L Normal 38 - 126 U/L ADM SS ALT No additional P-5'-P [Catalytic activity/Vol] 12 U/L Normal 12 - 55 U/L ADM SS AST [Catalytic activity/Vol] 20 U/L Normal 8 - 34 U/L ADM SS Basophils (Bld) [#/Vol] 0.0 103/mcL Normal 0.0 - 0.3 10^3/mcL Workflow SS Basophils/100 WBC (Bld) 0.1 % Normal 0.0 - 2.5 % Workflow SS Bili Indirect 0.1 mg/dL Normal 0.1 - 10.0 mg/dL Chemistry S Bilirubin [Mass/Vol] 0.20 mg/dL Normal 0.20 - 1.20 mg/dL ADM SS Comment on above: Interpretive Data: U se of this assay is not recommended for patients undergoing treatment with eltrombopag due to the potential for falsely elevated results. Bilirubin.conjugated [Mass/Vol] 0.1 mg/dL Normal 0.0 - 0.4 mg/dL ADM SS Comment on above: Interpretive Data: U se of this assay is not recommended for patients undergoing treatment with eltrombopag due to the potential for falsely elevated results. Calcium [Mass/Vol] 8.9 mg/dL Normal 8.7 - 10. 4 mg/dL ADM SS Chloride [Moles/Vol] 103 mmol/L Normal 98 - 11 0 mEq/L ADM SS CO2 [Moles/Vol] 23 mmol/L Normal 22 - 32 mEq/L ADM SS Creatinine [Mass/Vol] 2.72 mg/dL High 0.60 - 1.40 mg/dL ADM SS Electrolyte Balance 8.0 mEq/L Normal 4.0 - 15 .0 mEq/L ADM SS Eosinophils (Bld) [#/Vol] 0.0 103/mcL Normal 0.0 - 0.7 10^3/mcL Workflow SS Eosinophils/100 WBC (Bld) 0.1 % Normal 0.0 - 6.0 % Workflow SS Erythrocyte distribution width (RBC) [Ratio] 16.0 % High 11.5 - 15.5 % Workflow SS GFR/1.73 sq M.predicted among blacks MDRD (S/P/Bld) [Vol rate/Area] 29 ml/min/1.73sqm Invalid Interpretation Code [facility] Comment on above: Interpretive Data: GFR Population mean for , Non- Americans Ages 20-29 = 116 mL/min/1.73 sq.m. Ages 30-39 = 107 mL/min/1.73 sq.m. Ages 40-49 = 99 mL/min/1.73 sq.m. Ages 50-59 = 93 mL/min/1.73 sq.m. Ages 60-69 = 85 mL/min/1.73 sq.m. Ages 70+ = 75 mL/min/1.73 sq.m. Chronic Kidney Disease: Less than 60 mL/min/1.73 square meters End Stage Renal Disease: Less than 15 mL/min/1.73 square meters GFR/1.73 sq M.predicted among non-blacks MDRD (S/P/Bld) [Vol rate/Area] 24 ml/min/1.73sqm Invalid Interpretation Code [facility] Comment on above: Interpretive Data: GFR Population mean for , Non- Americans Ages 20-29 = 116 mL/min/1.73 sq.m. Ages 30-39 = 107 mL/min/1.73 sq.m. Ages 40-49 = 99 mL/min/1.73 sq.m. Ages 50-59 = 93 mL/min/1.73 sq.m. Ages 60-69 = 85 mL/min/1.73 sq.m. Ages 70+ = 75 mL/min/1.73 sq.m. Chronic Kidney Disease: Less than 60 mL/min/1.73 square meters End Stage Renal Disease: Less than 15 mL/min/1.73 square meters Globulin 3.4 G/dL Normal 1.5 - 3.8 G/dL ADM SS Glucose [Mass/Vol] 278 mg/dL High 70 - 110 mg/dL ADM SS Hematocrit (Bld) [Volume fraction] 31.6 % Low 40.0 - 52.0 % Workflow SS Hemoglobin (Bld) [Mass/Vol] 10.8 G/dL Low 13.0 - 17.5 G/dL Workflow SS Lymphocytes (Bld) [#/Vol] 0.4 103/mcL Low 0.9 - 4.3 10^3/mcL Workflow SS Lymphocytes/100 WBC (Bld) 5.8 % Low 20.0 - 40.0 % AH Workflow SS MCH (RBC) [Entitic mass] 28.4 pg Normal 27.0 - 33.0 pg AH Workflow SS MCHC 34.1 G/dL Normal 32.0 - 36.0 G/dL AH Workflow SS MCV (RBC) [Entitic vol] 83.3 fL Normal 81.0 - 100.0 fL AH Workflow SS Monocytes (Bld) [#/Vol] 0.4 103/mcL Normal 0.1 - 1.4 10^3/mcL AH Workflow SS Monocytes/100 WBC (Bld) 5.1 % Normal 2.0 - 13.0 % AH Workflow SS Neutrophils (Bld) [#/Vol] 6.6 103/mcL Normal 2.3 - 8.1 10^3/mcL AH Workflow SS Neutrophils/100 WBC (Bld) 88.9 % High 50.0 - 75.0 % AH Workflow SS Platelet mean volume (Bld) [Entitic vol] 7.7 fL Normal 6.4 - 10.5 fL AH Workflow SS Platelets (Bld) [#/Vol] 120 103/mcL Low 150 - 450 10^3/mcL AH Workflow SS Potassium [Moles/Vol] 4.6 mmol/L Normal 3.5 - 5.0 mEq/L AH ADM SS Protein [Mass/Vol] 6.7 G/dL Normal 5.7 - 8.2 G/dL AH ADM SS Comment on above: Interpretive Data: * *Note - New Reference Range in effect 19 RBC (Bld) [#/Vol] 3.79 106/mcL Low 4.50 - 6.0 0 10^6/mcL AH Workflow SS Sodium [Moles/Vol] 134 mmol/L Low 136 - 145 mEq/L AH ADM SS Urea nitrogen [Mass/Vol] 38.0 mg/dL High 8.0 - 22.0 mg/dL AH ADM SS Urea nitrogen/Creatinine [Mass ratio] 14.0 ratio Normal 10.0 - 22.0 ratio AH ADM SS WBC (Bld) [#/Vol] 7.4 103/mcL Normal 4.5 - 10.8 10^3/mcL AH Workflow SS LABORATORYOrdered By: Walter Merino on 09-29-2023 Blood Glucose Testing Reason Routine (09/29/23 7:48 AM) [facility] Work Phone: Glucose [Mass/Vol] 244 mg/dL [facility] Work Phone: .Auto Diffon 09-28-2023 Basophil, Absolute 0.0 10 3/mcL Normal 0.0-0.3 [facility] ([place] Comment on above: Performed By: #### G FR, CBC, ANEU, ADIFF, BMP #### [address] [address] Basophils/100 WBC (Bld) 0.2 % Normal 0.0-2.5 [facility] ([place] Comment on above: Performed By: #### G FR, CBC, ANEU, ADIFF, BMP #### [address] [address] Eosinophil, Absolute 0.1 10 3/mcL Normal 0.0-0.7 [facility] ([place]) Comment on above: Performed By: #### G FR, CBC, ANEU, ADIFF, BMP #### [address] [address] Eosinophils/100 WBC (Bld) 1.2 % Normal 0.0-6.0 [facility] ([place] Comment on above: Performed By: #### G FR, CBC, ANEU, ADIFF, BMP #### [address] [address] Lymphocyte, Absolute 0.8 10 3/mcL Low 0.9-4.3 [facility] ([place] Comment on above: Performed By: #### G FR, CBC, ANEU, ADIFF, BMP #### [address] [address] Lymphocytes/100 WBC (Bld) 8.4 % Low 20.0-40.0 [facility] ([place] Comment on above: Performed By: #### G FR, CBC, ANEU, ADIFF, BMP #### [address] [address] Monocyte, Absolute 0.9 10 3/mcL Normal 0.1-1.4 [facility] ([place] Comment on above: Performed By: #### G FR, CBC, ANEU, ADIFF, BMP #### [address] [address] Monocytes/100 WBC (Bld) 9.0 % Normal 2.0-13.0 [facility] ([place] Comment on above: Performed By: #### G FR, CBC, ANEU, ADIFF, BMP #### [address] [address] Neutrophils/100 WBC (Bld) 81.2 % High 50.0-75.0 [facility] ([place] Comment on above: Performed By: #### G FR, CBC, ANEU, ADIFF, BMP #### [address] [address] .GFRon 09-28-2023 GFR 31 ml/min/1.73sqm Normal [facility] ([place] Comment on above: Result Comment: GFR Population mean for , Non- Americans Ages 20-29 = 116 mL/min/1.73 sq.m. Ages 30-39 = 107 mL/min/1.73 sq.m. Ages 40-49 = 99 mL/min/1.73 sq.m. Ages 50-59 = 93 mL/min/1.73 sq.m. Ages 60-69 = 85 mL/min/1.73 sq.m. Ages 70+ = 75 mL/min/1.73 sq.m. Chronic Kidney Disease: Less than 60 mL/min/1.73 square meters End Stage Renal Disease: Less than 15 mL/min/1.73 square meters Performed By: #### G FR, ANEU, BMP, ADIFF, CBC #### [address] [address] GFR Non- 26 ml/min/1.73sqm Normal [facility] ([place] Comment on above: Result Comment: GFR Population mean for , Non- Americans Ages 20-29 = 116 mL/min/1.73 sq.m. Ages 30-39 = 107 mL/min/1.73 sq.m. Ages 40-49 = 99 mL/min/1.73 sq.m. Ages 50-59 = 93 mL/min/1.73 sq.m. Ages 60-69 = 85 mL/min/1.73 sq.m. Ages 70+ = 75 mL/min/1.73 sq.m. Chronic Kidney Disease: Less than 60 mL/min/1.73 square meters End Stage Renal Disease: Less than 15 mL/min/1.73 square meters Performed By: #### G FR, ANEU, BMP, ADIFF, CBC #### [place] [address] GFR 33 ml/min/1.73sqm Normal [facility] ([place] Comment on above: Result Comment: GFR Population mean for , Non- Americans Ages 20-29 = 116 mL/min/1.73 sq.m. Ages 30-39 = 107 mL/min/1.73 sq.m. Ages 40-49 = 99 mL/min/1.73 sq.m. Ages 50-59 = 93 mL/min/1.73 sq.m. Ages 60-69 = 85 mL/min/1.73 sq.m. Ages 70+ = 75 mL/min/1.73 sq.m. Chronic Kidney Disease: Less than 60 mL/min/1.73 square meters End Stage Renal Disease: Less than 15 mL/min/1.73 square meters Performed By: #### G FR, ANEU, BMP, ADIFF, CBC #### [place] [address] GFR Non- 27 ml/min/1.73sqm Normal [facility] ([place] Comment on above: Result Comment: GFR Population mean for , Non- Americans Ages 20-29 = 116 mL/min/1.73 sq.m. Ages 30-39 = 107 mL/min/1.73 sq.m. Ages 40-49 = 99 mL/min/1.73 sq.m. Ages 50-59 = 93 mL/min/1.73 sq.m. Ages 60-69 = 85 mL/min/1.73 sq.m. Ages 70+ = 75 mL/min/1.73 sq.m. Chronic Kidney Disease: Less than 60 mL/min/1.73 square meters End Stage Renal Disease: Less than 15 mL/min/1.73 square meters Performed By: #### G FR, ANEU, BMP, ADIFF, CBC #### [address] [address] .NEUABSon 09-28-2023 Neutrophil, Absolute 8.1 10 3/mcL Normal 2.3-8.1 [facility] ([place] Comment on above: Performed By: #### G FR, CBC, ANEU, ADIFF, BMP #### [address] [address] BMPon 09-28-2023 BUN/Creatinine Ratio 16.2 ratio Normal 10.0-22.0 [facility] ([place] Comment on above: Performed By: #### G FR, ANEU, BMP, ADIFF, CBC #### [place] [address] Calcium [Mass/Vol] 8.0 mg/dL Low 8.7-10.4 [facility] ([place] Comment on above: Performed By: #### G FR, ANEU, BMP, ADIFF, CBC #### [place] [address] Chloride [Moles/Vol] 104 mmol/L Normal 98-110 [facility] ([place] Comment on above: Performed By: #### G FR, ANEU, BMP, ADIFF, CBC #### [place] [address] CO2 [Moles/Vol] 27 mmol/L Normal 22-32 [facility] [place] Comment on above: Performed By: #### G FR, ANEU, BMP, ADIFF, CBC #### [place] [address] Creatinine [Mass/Vol] 2.60 mg/dL High 0.60-1.40 [facility] ([place] Comment on above: Performed By: #### G FR, ANEU, BMP, ADIFF, CBC #### [place] [address] Electrolyte Balance 7.0 mEq/L Normal 4.0-15.0 [facility] ([place] Comment on above: Performed By: #### G FR, ANEU, BMP, ADIFF, CBC #### [place] [address] Glucose [Mass/Vol] 137 mg/dL High 70-110 [facility] ([place] Comment on above: Performed By: #### G FR, ANEU, BMP, ADIFF, CBC #### [address] [address] Potassium [Moles/Vol] 4.2 mmol/L Normal 3.5-5.0 [facility] ([place] Comment on above: Performed By: #### G FR, ANEU, BMP, ADIFF, CBC #### [address] [address] Sodium [Moles/Vol] 138 mmol/L Normal 136-145 [facility] ([place] Comment on above: Performed By: #### G FR, ANEU, BMP, ADIFF, CBC #### [address] [address] Urea nitrogen [Mass/Vol] 42.0 mg/dL High 8.0-22.0 [facility] ([place] Comment on above: Performed By: #### G FR, ANEU, BMP, ADIFF, CBC #### [address] [address] BUN/Creatinine Ratio 16.3 ratio Normal 10.0-22.0 [facility] ([place] Comment on above: Performed By: #### G FR, CBC, ANEU, ADIFF, BMP #### [address] [address] Calcium [Mass/Vol] 8.2 mg/dL Low 8.7-10.4 [facility] ([place] Comment on above: Performed By: #### G FR, CBC, ANEU, ADIFF, BMP #### [address] [address] Chloride [Moles/Vol] 105 mmol/L Normal 98-110 [facility] ([place] Comment on above: Performed By: #### G FR, CBC, ANEU, ADIFF, BMP #### [address] [address] CO2 [Moles/Vol] 24 mmol/L Normal 22-32 [facility] [place] Comment on above: Performed By: #### G FR, CBC, ANEU, ADIFF, BMP #### [address] [address] Creatinine [Mass/Vol] 2.46 mg/dL High 0.60-1.40 [facility] [place] Comment on above: Performed By: #### G FR, CBC, ANEU, ADIFF, BMP #### [address] [address] Electrolyte Balance 10.0 mEq/L Normal 4.0-15.0 [facility] ([place] Comment on above: Performed By: #### G FR, CBC, ANEU, ADIFF, BMP #### [address] [address] Glucose [Mass/Vol] 65 mg/dL Low 70-110 [facility] ([place] Comment on above: Performed By: #### G FR, CBC, ANEU, ADIFF, BMP #### [place] [address] Potassium [Moles/Vol] 4.0 mmol/L Normal 3.5-5.0 [facility] [place] Comment on above: Performed By: #### G FR, CBC, ANEU, ADIFF, BMP #### [address] [address] Sodium [Moles/Vol] 139 mmol/L Normal 136-145 [facility] ([place] Comment on above: Performed By: #### G FR, CBC, ANEU, ADIFF, BMP #### [address] [address] Urea nitrogen [Mass/Vol] 40.0 mg/dL High 8.0-22.0 [facility] ([place] Comment on above: Performed By: #### G FR, CBC, ANEU, ADIFF, BMP #### [address] [address] [id number] 09-28-2023 Complement C3A 134.0 mg/dL Normal 90.0-170.0 [facility] ([place] Comment on above: Result Comment: No te - New Reference Range in effect 19 Performed By: #### G FR, ANEU, BMP, ADIFF, CBC #### [place] [address] Complement C4A 22.0 mg/dL Normal 16.0-38.0 [facility] [place] Comment on above: Performed By: #### G FR, ANEU, BMP, ADIFF, CBC #### [place] [id number] CBCon 09-28-2023 Erythrocyte distribution width (RBC) [Ratio] 16.2 % High 11.5-15.5 [facility] ([place] Comment on above: Performed By: #### G FR, CBC, ANEU, ADIFF, BMP #### [place] [address] Hematocrit (Bld) [Volume fraction] 32.9 % Low 40.0-52.0 [facility] Comment on above: Performed By: #### G FR, CBC, ANEU, ADIFF, BMP #### [place] [address] Hgb 11.1 G/dL Low 13.0-17.5 [facility] [place] Comment on above: Performed By: #### G FR, CBC, ANEU, ADIFF, BMP #### [place] [address] MCH (RBC) [Entitic mass] 28.3 pg Normal 27.0-33.0 [facility] [place] Comment on above: Performed By: #### G FR, CBC, ANEU, ADIFF, BMP #### [place] [address] MCHC 33.9 G/dL Normal 32.0-36.0 [facility] [place] Comment on above: Performed By: #### G FR, CBC, ANEU, ADIFF, BMP #### [place] [address] MCV (RBC) [Entitic vol] 83.7 fL Normal 81.0-100.0 [facility] [place] Comment on above: Performed By: #### G FR, CBC, ANEU, ADIFF, BMP #### [facility] [address] [place] [id number] Platelet 129 10 3/mcL Low 150-450 [facility] Comment on above: Performed By: #### G FR, CBC, ANEU, ADIFF, BMP #### [facility] [address] [place] [address] Platelet mean volume (Bld) [Entitic vol] 7.3 fL Normal 6.4-10.5 [facility] [place] Comment on above: Performed By: #### G FR, CBC, ANEU, ADIFF, BMP #### [facility] [address] [place] [address] RBC 3.93 10 6/mcL Low 4.50-6.00 [facility] [place] Comment on above: Performed By: #### G FR, CBC, ANEU, ADIFF, BMP #### [address] [address] WBC 10.0 10 3/mcL Normal 4.5-10.8 [facility] [place] Comment on above: Performed By: #### G FR, CBC, ANEU, ADIFF, BMP #### [address] [address] LABORATORYOrdered By: Tiffany Vásquez on 09-28-2023 Glucose [Mass/Vol] 253 mg/dL High 70 - 110 mg/dL [facility] Work Phone: Time of Stated Blood Glucose [id number] [facility] Work Phone: LABORATORYOrdered By: Judit Walden on 09-28-2023 Time of Stated Blood Glucose [id number] [facility] Work Phone: LABORATORYOrdered By: Antonieta Mckeon on 09-28-2023 Time of Stated Blood Glucose [id number] [facility] Work Phone: LABORATORYOrdered By: Felisha Muse on 09-28-2023 Glucose [Mass/Vol] 126 mg/dL High 70 - 110 mg/dL [facility] Work Phone: LABORATORYOrdered By: SYSTEM SYSTEM on 09-28-2023 Calcium [Mass/Vol] 8.0 mg/dL Low 8.7 - 10. 4 mg/dL ADM SS Chloride [Moles/Vol] 104 mmol/L Normal 98 - 11 0 mEq/L ADM SS CO2 [Moles/Vol] 27 mmol/L Normal 22 - 32 mEq/L ADM SS Complement C3 [Mass/Vol] 134.0 mg/dL Normal 90.0 - 170.0 mg/dL ADM SS Comment on above: Interpretive Data: * *Note - New Reference Range in effect 19 Complement C4 [Mass/Vol] 22.0 mg/dL Normal 16.0 - 38.0 mg/dL ADM SS Creatinine [Mass/Vol] 2.60 mg/dL High 0.60 - 1.40 mg/dL ADM SS Electrolyte Balance 7.0 mEq/L Normal 4.0 - 15 .0 mEq/L ADM SS GFR/1.73 sq M.predicted among blacks MDRD (S/P/Bld) [Vol rate/Area] 31 ml/min/1.73sqm Invalid Interpretation Code ADM SS Comment on above: Interpretive Data: GFR Population mean for , Non- Americans Ages 20-29 = 116 mL/min/1.73 sq.m. Ages 30-39 = 107 mL/min/1.73 sq.m. Ages 40-49 = 99 mL/min/1.73 sq.m. Ages 50-59 = 93 mL/min/1.73 sq.m. Ages 60-69 = 85 mL/min/1.73 sq.m. Ages 70+ = 75 mL/min/1.73 sq.m. Chronic Kidney Disease: Less than 60 mL/min/1.73 square meters End Stage Renal Disease: Less than 15 mL/min/1.73 square meters GFR/1.73 sq M.predicted among non-blacks MDRD (S/P/Bld) [Vol rate/Area] 26 ml/min/1.73sqm Invalid Interpretation Code AH ADM SS Comment on above: Interpretive Data: GFR Population mean for , Non- Americans Ages 20-29 = 116 mL/min/1.73 sq.m. Ages 30-39 = 107 mL/min/1.73 sq.m. Ages 40-49 = 99 mL/min/1.73 sq.m. Ages 50-59 = 93 mL/min/1.73 sq.m. Ages 60-69 = 85 mL/min/1.73 sq.m. Ages 70+ = 75 mL/min/1.73 sq.m. Chronic Kidney Disease: Less than 60 mL/min/1.73 square meters End Stage Renal Disease: Less than 15 mL/min/1.73 square meters Glucose [Mass/Vol] 137 mg/dL High 70 - 110 mg/dL ADM SS Potassium [Moles/Vol] 4.2 mmol/L Normal 3.5 - 5.0 mEq/L AH ADM SS Sodium [Moles/Vol] 138 mmol/L Normal 136 - 145 mEq/L AH ADM SS Urea nitrogen [Mass/Vol] 42.0 mg/dL High 8.0 - 22.0 mg/dL ADM SS Urea nitrogen/Creatinine [Mass ratio] 16.2 ratio Normal 10.0 - 22.0 ratio ADM SS Basophils (Bld) [#/Vol] 0.0 103/mcL Normal 0.0 - 0.3 10^3/mcL Workflow SS Basophils/100 WBC (Bld) 0.2 % Normal 0.0 - 2.5 % Workflow SS Calcium [Mass/Vol] 8.2 mg/dL Low 8.7 - 10. 4 mg/dL ADM SS Chloride [Moles/Vol] 105 mmol/L Normal 98 - 11 0 mEq/L ADM SS CO2 [Moles/Vol] 24 mmol/L Normal 22 - 32 mEq/L ADM SS Creatinine [Mass/Vol] 2.46 mg/dL High 0.60 - 1.40 mg/dL ADM SS Electrolyte Balance 10.0 mEq/L Normal 4.0 - 15 .0 mEq/L ADM SS Eosinophils (Bld) [#/Vol] 0.1 103/mcL Normal 0.0 - 0.7 10^3/mcL Workflow SS Eosinophils/100 WBC (Bld) 1.2 % Normal 0.0 - 6.0 % Workflow SS Erythrocyte distribution width (RBC) [Ratio] 16.2 % High 11.5 - 15.5 % Workflow SS GFR/1.73 sq M.predicted among blacks MDRD (S/P/Bld) [Vol rate/Area] 33 ml/min/1.73sqm Invalid Interpretation Code [employer] S Comment on above: Interpretive Data: GFR Population mean for , Non- Americans Ages 20-29 = 116 mL/min/1.73 sq.m. Ages 30-39 = 107 mL/min/1.73 sq.m. Ages 40-49 = 99 mL/min/1.73 sq.m. Ages 50-59 = 93 mL/min/1.73 sq.m. Ages 60-69 = 85 mL/min/1.73 sq.m. Ages 70+ = 75 mL/min/1.73 sq.m. Chronic Kidney Disease: Less than 60 mL/min/1.73 square meters End Stage Renal Disease: Less than 15 mL/min/1.73 square meters GFR/1.73 sq M.predicted among non-blacks MDRD (S/P/Bld) [Vol rate/Area] 27 ml/min/1.73sqm Invalid Interpretation Code [employer] S Comment on above: Interpretive Data: GFR Population mean for , Non- Americans Ages 20-29 = 116 mL/min/1.73 sq.m. Ages 30-39 = 107 mL/min/1.73 sq.m. Ages 40-49 = 99 mL/min/1.73 sq.m. Ages 50-59 = 93 mL/min/1.73 sq.m. Ages 60-69 = 85 mL/min/1.73 sq.m. Ages 70+ = 75 mL/min/1.73 sq.m. Chronic Kidney Disease: Less than 60 mL/min/1.73 square meters End Stage Renal Disease: Less than 15 mL/min/1.73 square meters Glucose [Mass/Vol] 65 mg/dL Low 70 - 110 mg/dL ADM SS Hematocrit (Bld) [Volume fraction] 32.9 % Low 40.0 - 52.0 % Workflow SS Hemoglobin (Bld) [Mass/Vol] 11.1 G/dL Low 13.0 - 17.5 G/dL AH Workflow SS Lymphocytes (Bld) [#/Vol] 0.8 103/mcL Low 0.9 - 4.3 10^3/mcL AH Workflow SS Lymphocytes/100 WBC (Bld) 8.4 % Low 20.0 - 40.0 % Workflow SS MCH (RBC) [Entitic mass] 28.3 pg Normal 27.0 - 33.0 pg Workflow SS MCHC 33.9 G/dL Normal 32.0 - 36.0 G/dL AH Workflow SS MCV (RBC) [Entitic vol] 83.7 fL Normal 81.0 - 100.0 fL AH Workflow SS Monocytes (Bld) [#/Vol] 0.9 103/mcL Normal 0.1 - 1.4 10^3/mcL AH Workflow SS Monocytes/100 WBC (Bld) 9.0 % Normal 2.0 - 13.0 % AH Workflow SS Neutrophils (Bld) [#/Vol] 8.1 103/mcL Normal 2.3 - 8.1 10^3/mcL Workflow SS Neutrophils/100 WBC (Bld) 81.2 % High 50.0 - 75.0 % Workflow SS Platelet mean volume (Bld) [Entitic vol] 7.3 fL Normal 6.4 - 10.5 fL Workflow SS Platelets (Bld) [#/Vol] 129 103/mcL Low 150 - 450 10^3/mcL Workflow SS Potassium [Moles/Vol] 4.0 mmol/L Normal 3.5 - 5.0 mEq/L ADM SS RBC (Bld) [#/Vol] 3.93 106/mcL Low 4.50 - 6.0 0 10^6/mcL AH Workflow SS Sodium [Moles/Vol] 139 mmol/L Normal 136 - 145 mEq/L ADM SS Urea nitrogen [Mass/Vol] 40.0 mg/dL High 8.0 - 22.0 mg/dL ADM SS Urea nitrogen/Creatinine [Mass ratio] 16.3 ratio Normal 10.0 - 22.0 ratio ADM SS WBC (Bld) [#/Vol] 10.0 103/mcL Normal 4.5 - 10.8 10^3/mcL Workflow SS XR CHEST 1 VIEWon 09-28-2023 XR CHEST 1 VIEW ORIGINAL EXAMINATION: ONE XRAY VIEW OF THE CHEST 09/28/2023 7:55 am COMPARISON: None. HISTORY: ORDERING SYSTEM PROVIDED HISTORY: Reason for Exam: eval for fluid overload FINDINGS: Heart size is normal. No pneumothorax. No large effusion. Mild hazy airspace disease in the mid and lower lungs bilaterally. No pneumothorax or effusion. No focal consolidation. IMPRESSION: Mild hazy airspace disease in the mid and lower lungs bilaterally could represent a developing infectious or inflammatory process versus atelectasis. Interpreted by: Kia Lopez MD Preliminary Report By: Kia Lopez MD Electronically signed By Kia Lopez MD Dictated Date: 09/28/2023 7:59:56 AM Prelim Date: 09/28/2023 8:01:12 AM Sign Date: 09/28/2023 8:01:12 AM Ordering Provider: NEO Sosa [facility] .Auto Diffon 09-27-2023 Basophil, Absolute 0.0 10 3/mcL Normal 0.0-0.3 [facility] ([place]) Comment on above: Performed By: #### G FR, ANEU, BMP, ADIFF, CBC #### [address] [address] Basophils/100 WBC (Bld) 0.7 % Normal 0.0-2.5 [facility] [place] Comment on above: Performed By: #### G FR, ANEU, BMP, ADIFF, CBC #### [address] [address] Eosinophil, Absolute 0.2 10 3/mcL Normal 0.0-0.7 [facility] ([place]) Comment on above: Performed By: #### G FR, ANEU, BMP, ADIFF, CBC #### [address] [address] Eosinophils/100 WBC (Bld) 4.6 % Normal 0.0-6.0 [facility] [place] Comment on above: Performed By: #### G FR, ANEU, BMP, ADIFF, CBC #### [address] [address] Lymphocyte, Absolute 0.7 10 3/mcL Low 0.9-4.3 [facility] ([place]) Comment on above: Performed By: #### G FR, ANEU, BMP, ADIFF, CBC #### [address] [address] Lymphocytes/100 WBC (Bld) 15.6 % Low 20.0-40.0 [facility] [place] Comment on above: Performed By: #### G FR, ANEU, BMP, ADIFF, CBC #### [address] [address] Monocyte, Absolute 0.7 10 3/mcL Normal 0.1-1.4 [facility] ([place]) Comment on above: Performed By: #### G FR, ANEU, BMP, ADIFF, CBC #### [address] [address] Monocytes/100 WBC (Bld) 14.6 % High 2.0-13.0 [facility] ([place] Comment on above: Performed By: #### G FR, ANEU, BMP, ADIFF, CBC #### [address] [address] Neutrophils/100 WBC (Bld) 64.5 % Normal 50.0-75.0 [facility] ([place] Comment on above: Performed By: #### G FR, ANEU, BMP, ADIFF, CBC #### [address] [address] .GFRon 09-27-2023 GFR 52 ml/min/1.73sqm Normal [facility] ([place] Comment on above: Result Comment: GFR Population mean for , Non- Americans Ages 20-29 = 116 mL/min/1.73 sq.m. Ages 30-39 = 107 mL/min/1.73 sq.m. Ages 40-49 = 99 mL/min/1.73 sq.m. Ages 50-59 = 93 mL/min/1.73 sq.m. Ages 60-69 = 85 mL/min/1.73 sq.m. Ages 70+ = 75 mL/min/1.73 sq.m. Chronic Kidney Disease: Less than 60 mL/min/1.73 square meters End Stage Renal Disease: Less than 15 mL/min/1.73 square meters Performed By: #### G FR, ANEU, BMP, ADIFF, CBC #### [address] [address] GFR Non- 43 ml/min/1.73sqm Normal [facility] ([place] Comment on above: Result Comment: GFR Population mean for , Non- Americans Ages 20-29 = 116 mL/min/1.73 sq.m. Ages 30-39 = 107 mL/min/1.73 sq.m. Ages 40-49 = 99 mL/min/1.73 sq.m. Ages 50-59 = 93 mL/min/1.73 sq.m. Ages 60-69 = 85 mL/min/1.73 sq.m. Ages 70+ = 75 mL/min/1.73 sq.m. Chronic Kidney Disease: Less than 60 mL/min/1.73 square meters End Stage Renal Disease: Less than 15 mL/min/1.73 square meters Performed By: #### G FR, ANEU, BMP, ADIFF, CBC #### [address] [address] GFR 54 ml/min/1.73sqm Normal [facility] ([place] Comment on above: Result Comment: GFR Population mean for , Non- Americans Ages 20-29 = 116 mL/min/1.73 sq.m. Ages 30-39 = 107 mL/min/1.73 sq.m. Ages 40-49 = 99 mL/min/1.73 sq.m. Ages 50-59 = 93 mL/min/1.73 sq.m. Ages 60-69 = 85 mL/min/1.73 sq.m. Ages 70+ = 75 mL/min/1.73 sq.m. Chronic Kidney Disease: Less than 60 mL/min/1.73 square meters End Stage Renal Disease: Less than 15 mL/min/1.73 square meters Performed By: #### G FR, ANEU, BMP, ADIFF, CBC #### [address] [address] GFR Non- 44 ml/min/1.73sqm Normal [facility] ([place] Comment on above: Result Comment: GFR Population mean for , Non- Americans Ages 20-29 = 116 mL/min/1.73 sq.m. Ages 30-39 = 107 mL/min/1.73 sq.m. Ages 40-49 = 99 mL/min/1.73 sq.m. Ages 50-59 = 93 mL/min/1.73 sq.m. Ages 60-69 = 85 mL/min/1.73 sq.m. Ages 70+ = 75 mL/min/1.73 sq.m. Chronic Kidney Disease: Less than 60 mL/min/1.73 square meters End Stage Renal Disease: Less than 15 mL/min/1.73 square meters Performed By: #### G FR, ANEU, BMP, ADIFF, CBC #### [address] [address] .NEUABSon 09-27-2023 Neutrophil, Absolute 2.9 10 3/mcL Normal 2.3-8.1 [facility] ([place]) Comment on above: Performed By: #### G FR, ANEU, BMP, ADIFF, CBC #### [address] [address] BMPon 09-27-2023 BUN/Creatinine Ratio 19.3 ratio Normal 10.0-22.0 [facility] ([place]) Comment on above: Performed By: #### G FR, ANEU, BMP, ADIFF, CBC #### [place] [address] Calcium [Mass/Vol] 9.2 mg/dL Normal 8.7-10.4 [facility] ([place]) Comment on above: Performed By: #### G FR, ANEU, BMP, ADIFF, CBC #### [address] [address] Chloride [Moles/Vol] 105 mmol/L Normal 98-110 [facility] ([place]) Comment on above: Performed By: #### G FR, ANEU, BMP, ADIFF, CBC #### [address] [address] CO2 [Moles/Vol] 28 mmol/L Normal 22-32 [facility] [place] Comment on above: Performed By: #### G FR, ANEU, BMP, ADIFF, CBC #### [address] [address] Creatinine [Mass/Vol] 1.61 mg/dL High 0.60-1.40 [facility] ([place] Comment on above: Performed By: #### G FR, ANEU, BMP, ADIFF, CBC #### [address] [address] Electrolyte Balance 9.0 mEq/L Normal 4.0-15.0 [facility] ([place]) Comment on above: Performed By: #### G FR, ANEU, BMP, ADIFF, CBC #### [address] [address] Glucose [Mass/Vol] 181 mg/dL High 70-110 [facility] ([place]) Comment on above: Performed By: #### G FR, ANEU, BMP, ADIFF, CBC #### [address] [address] Potassium [Moles/Vol] 3.3 mmol/L Low 3.5-5.0 [facility] [place] Comment on above: Performed By: #### G FR, ANEU, BMP, ADIFF, CBC #### [address] [address] Sodium [Moles/Vol] 142 mmol/L Normal 136-145 [facility] ([place]) Comment on above: Performed By: #### G FR, ANEU, BMP, ADIFF, CBC #### [address] [address] Urea nitrogen [Mass/Vol] 31.0 mg/dL High 8.0-22.0 [facility] ([place] Comment on above: Performed By: #### G FR, ANEU, BMP, ADIFF, CBC #### [address] [address] CBCon 09-27-2023 Erythrocyte distribution width (RBC) [Ratio] 15.9 % High 11.5-15.5 [facility] [place] Comment on above: Performed By: #### G FR, ANEU, BMP, ADIFF, CBC #### [address] [address] Hematocrit (Bld) [Volume fraction] 38.0 % Low 40.0-52.0 [facility] [place] Comment on above: Performed By: #### G FR, ANEU, BMP, ADIFF, CBC #### [address] [address] Hgb 12.9 G/dL Low 13.0-17.5 [facility] [place] Comment on above: Performed By: #### Denisse FR, ANEU, BMP, ADIFF, CBC #### [place] [address] MCH (RBC) [Entitic mass] 28.2 pg Normal 27.0-33.0 [facility] [place] Comment on above: Performed By: #### Denisse FR, ANEU, BMP, ADIFF, CBC #### [place] [address] MCHC 34.0 G/dL Normal 32.0-36.0 [facility] [place] Comment on above: Performed By: #### Denisse FR, ANEU, BMP, ADIFF, CBC #### [place] [address] MCV (RBC) [Entitic vol] 82.8 fL Normal 81.0-100.0 [facility] [place] Comment on above: Performed By: #### Denisse FR, ANEU, BMP, ADIFF, CBC #### [place] [address] Platelet 122 10 3/mcL Low 150-450 [facility] [place] Comment on above: Performed By: #### G FR, ANEU, BMP, ADIFF, CBC #### [place] [address] Platelet mean volume (Bld) [Entitic vol] 7.0 fL Normal 6.4-10.5 [facility] [place] Comment on above: Performed By: #### G FR, ANEU, BMP, ADIFF, CBC #### [place] [address] RBC 4.58 10 6/mcL Normal 4.50-6.00 [facility] [place] Comment on above: Performed By: #### G FR, ANEU, BMP, ADIFF, CBC #### [place] [address] WBC 4.5 10 3/mcL Normal 4.5-10.8 [facility] [place] Comment on above: Performed By: #### G FR, ANEU, BMP, ADIFF, CBC #### [address] [address] CREon 09-27-2023 Creatinine [Mass/Vol] 1.66 mg/dL High 0.60-1.40 [facility] ([place] Comment on above: Performed By: #### G FR, ANEU, BMP, ADIFF, CBC #### [address] [address] LABORATORYOrdered By: SYSTEM SYSTEM on 09-27-2023 Basophils (Bld) [#/Vol] 0.0 103/mcL Normal 0.0 - 0.3 10^3/mcL AH Workflow SS Basophils/100 WBC (Bld) 0.7 % Normal 0.0 - 2.5 % AH Workflow SS Eosinophils (Bld) [#/Vol] 0.2 103/mcL Normal 0.0 - 0.7 10^3/mcL AH Workflow SS Eosinophils/100 WBC (Bld) 4.6 % Normal 0.0 - 6.0 % AH Workflow SS Erythrocyte distribution width (RBC) [Ratio] 15.9 % High 11.5 - 15.5 % AH Workflow SS Hematocrit (Bld) [Volume fraction] 38.0 % Low 40.0 - 52.0 % AH Workflow SS Hemoglobin (Bld) [Mass/Vol] 12.9 G/dL Low 13.0 - 17.5 G/dL AH Workflow SS Lymphocytes (Bld) [#/Vol] 0.7 103/mcL Low 0.9 - 4.3 10^3/mcL AH Workflow SS Lymphocytes/100 WBC (Bld) 15.6 % Low 20.0 - 40.0 % AH Workflow SS MCH (RBC) [Entitic mass] 28.2 pg Normal 27.0 - 33.0 pg AH Workflow SS MCHC 34.0 G/dL Normal 32.0 - 36.0 G/dL AH Workflow SS MCV (RBC) [Entitic vol] 82.8 fL Normal 81.0 - 100.0 fL AH Workflow SS Monocytes (Bld) [#/Vol] 0.7 103/mcL Normal 0.1 - 1.4 10^3/mcL AH Workflow SS Monocytes/100 WBC (Bld) 14.6 % High 2.0 - 13.0 % AH Workflow SS Neutrophils (Bld) [#/Vol] 2.9 103/mcL Normal 2.3 - 8.1 10^3/mcL AH Workflow SS Neutrophils/100 WBC (Bld) 64.5 % Normal 50.0 - 75.0 % AH Workflow SS Platelet mean volume (Bld) [Entitic vol] 7.0 fL Normal 6.4 - 10.5 fL AH Workflow SS Platelets (Bld) [#/Vol] 122 103/mcL Low 150 - 450 10^3/mcL AH Workflow SS RBC (Bld) [#/Vol] 4.58 106/mcL Normal 4.50 - 6.0 0 10^6/mcL AH Workflow SS WBC (Bld) [#/Vol] 4.5 103/mcL Normal 4.5 - 10.8 10^3/mcL Workflow SS .Auto Diffon 09-26-2023 Basophil, Absolute 0.0 10 3/mcL Normal 0.0-0.3 [facility] ([place]) Comment on above: Performed By: #### Denisse FR, ANEU, BMP, ADIFF, CBC #### [address] [address] Basophils/100 WBC (Bld) 0.7 % Normal 0.0-2.5 [facility] [place] Comment on above: Performed By: #### Denisse FR, ANEU, BMP, ADIFF, CBC #### [address] [address] Eosinophil, Absolute 0.2 10 3/mcL Normal 0.0-0.7 [facility] ([place]) Comment on above: Performed By: #### Denisse FR, ANEU, BMP, ADIFF, CBC #### [address] [address] Eosinophils/100 WBC (Bld) 3.9 % Normal 0.0-6.0 [facility] ([place] Comment on above: Performed By: #### Denisse FR, ANEU, BMP, ADIFF, CBC #### [address] [address] Lymphocyte, Absolute 0.8 10 3/mcL Low 0.9-4.3 [facility] ([place]) Comment on above: Performed By: #### Denisse FR, ANEU, BMP, ADIFF, CBC #### [address] [address] Lymphocytes/100 WBC (Bld) 14.3 % Low 20.0-40.0 [facility] ([place] Comment on above: Performed By: #### G FR, ANEU, BMP, ADIFF, CBC #### [address] [address] Monocyte, Absolute 0.6 10 3/mcL Normal 0.1-1.4 [facility] ([place] Comment on above: Performed By: #### G FR, ANEU, BMP, ADIFF, CBC #### [address] [address] Monocytes/100 WBC (Bld) 11.5 % Normal 2.0-13.0 [facility] [place] Comment on above: Performed By: #### G FR, ANEU, BMP, ADIFF, CBC #### [address] [address] Neutrophils/100 WBC (Bld) 69.6 % Normal 50.0-75.0 [facility] ([place] Comment on above: Performed By: #### G FR, ANEU, BMP, ADIFF, CBC #### [address] [address] .GFRon 09-26-2023 GFR 49 ml/min/1.73sqm Normal [facility] ([place] Comment on above: Result Comment: GFR Population mean for , Non- Americans Ages 20-29 = 116 mL/min/1.73 sq.m. Ages 30-39 = 107 mL/min/1.73 sq.m. Ages 40-49 = 99 mL/min/1.73 sq.m. Ages 50-59 = 93 mL/min/1.73 sq.m. Ages 60-69 = 85 mL/min/1.73 sq.m. Ages 70+ = 75 mL/min/1.73 sq.m. Chronic Kidney Disease: Less than 60 mL/min/1.73 square meters End Stage Renal Disease: Less than 15 mL/min/1.73 square meters Performed By: #### G FR, ANEU, BMP, ADIFF, CBC #### [address] [address] GFR Non- 40 ml/min/1.73sqm Normal [facility] ([place] Comment on above: Result Comment: GFR Population mean for , Non- Americans Ages 20-29 = 116 mL/min/1.73 sq.m. Ages 30-39 = 107 mL/min/1.73 sq.m. Ages 40-49 = 99 mL/min/1.73 sq.m. Ages 50-59 = 93 mL/min/1.73 sq.m. Ages 60-69 = 85 mL/min/1.73 sq.m. Ages 70+ = 75 mL/min/1.73 sq.m. Chronic Kidney Disease: Less than 60 mL/min/1.73 square meters End Stage Renal Disease: Less than 15 mL/min/1.73 square meters Performed By: #### G FR, ANEU, BMP, ADIFF, CBC #### [address] [address] .NEUABSon 09-26-2023 Neutrophil, Absolute 3.8 10 3/mcL Normal 2.3-8.1 [facility] ([place] Comment on above: Performed By: #### Denisse FR, ANEU, BMP, ADIFF, CBC #### [address] [address] BMPon 09-26-2023 BUN/Creatinine Ratio 17.1 ratio Normal 10.0-22.0 [facility] ([place] Comment on above: Performed By: #### G FR, ANEU, BMP, ADIFF, CBC #### [address] [address] Calcium [Mass/Vol] 9.2 mg/dL Normal 8.7-10.4 [facility] ([place]) Comment on above: Performed By: #### G FR, ANEU, BMP, ADIFF, CBC #### [address] [address] Chloride [Moles/Vol] 106 mmol/L Normal 98-110 [facility] ([place] Comment on above: Performed By: #### G FR, ANEU, BMP, ADIFF, CBC #### [address] [address] CO2 [Moles/Vol] 29 mmol/L Normal 22-32 [facility] [place] Comment on above: Performed By: #### G FR, ANEU, BMP, ADIFF, CBC #### [address] [address] Creatinine [Mass/Vol] 1.75 mg/dL High 0.60-1.40 [facility] ([place] Comment on above: Performed By: #### G FR, ANEU, BMP, ADIFF, CBC #### [address] [address] Electrolyte Balance 7.0 mEq/L Normal 4.0-15.0 [facility] ([place]) Comment on above: Performed By: #### G FR, ANEU, BMP, ADIFF, CBC #### [place] [address] Glucose [Mass/Vol] 209 mg/dL High 70-110 [facility] ([place]) Comment on above: Performed By: #### G FR, ANEU, BMP, ADIFF, CBC #### [address] [address] Potassium [Moles/Vol] 3.6 mmol/L Normal 3.5-5.0 [facility] ([place] Comment on above: Performed By: #### G FR, ANEU, BMP, ADIFF, CBC #### [address] [address] Sodium [Moles/Vol] 142 mmol/L Normal 136-145 [facility] ([place] Comment on above: Performed By: #### G FR, ANEU, BMP, ADIFF, CBC #### [address] [address] Urea nitrogen [Mass/Vol] 30.0 mg/dL High 8.0-22.0 [facility] ([place] Comment on above: Performed By: #### G FR, ANEU, BMP, ADIFF, CBC #### [address] [address] CBCon 07-09-2024 Erythrocyte distribution width (RBC) [Ratio] 16.1 % High 11.5-15.5 [facility] [place] Comment on above: Performed By: #### Denisse FR, ANEU, BMP, ADIFF, CBC #### [place] [address] Hematocrit (Bld) [Volume fraction] 36.2 % Low 40.0-52.0 [facility] [place] Comment on above: Performed By: #### Denisse FR, ANEU, BMP, ADIFF, CBC #### [place] [address] Hgb 12.2 G/dL Low 13.0-17.5 [facility] [place] Comment on above: Performed By: #### Denisse FR, ANEU, BMP, ADIFF, CBC #### [place] [address] MCH (RBC) [Entitic mass] 28.1 pg Normal 27.0-33.0 [facility] [place] Comment on above: Performed By: #### Denisse FR, ANEU, BMP, ADIFF, CBC #### [place] [address] MCHC 33.8 G/dL Normal 32.0-36.0 [facility] Comment on above: Performed By: #### Denisse FR, ANEU, BMP, ADIFF, CBC #### [place] [address] MCV (RBC) [Entitic vol] 83.1 fL Normal 81.0-100.0 [facility] Comment on above: Performed By: #### Denisse FR, ANEU, BMP, ADIFF, CBC #### [place] [address] Platelet 125 10 3/mcL Low 150-450 [facility] Comment on above: Performed By: #### Denisse FR, ANEU, BMP, ADIFF, CBC #### [place] [address] Platelet mean volume (Bld) [Entitic vol] 7.3 fL Normal 6.4-10.5 [facility] Comment on above: Performed By: #### G FR, ANEU, BMP, ADIFF, CBC #### [facility] [address] [place] [id number] RBC 4.36 10 6/mcL Low 4.50-6.00 [facility] Comment on above: Performed By: #### G FR, ANEU, BMP, ADIFF, CBC #### [facility] [address] [place], [place] [id number] WBC 5.5 10 3/mcL Normal 4.5-10.8 [facility] ([place] Comment on above: Performed By: #### G FR, ANEU, BMP, ADIFF, CBC #### [facility] [address] [place] [address] LABORATORYOrdered By: Dolly Garsia on 09-26-2023 PT Coag (PPP) [Time] 11.3 s Normal 9.0 - 1 4.4 seconds JOSE Ruiz Comment on above: Interpretive Data: E ffective 10/02/07, Protime results may be affected by some antibiotics (i.e. Ciprofloxacin, Azithromycin, Bactrim) which may potentiate the action of oral anticoagulants, with further increases in Protime/INR. PT International Ratio 1.0 ratio Invalid Interpretation Code Joseph MARMOLEJO Comment on above: Interpretive Data: Audrey mendez [employer] (CHEST, 1992, 102:312S-25S) recommended therapeutic range for oral anticoagulant therapy is: LOW RISK: Prophylaxis of venous thrombosis INR: 2.0-3.0 Treatment of pulmonary embolism 2.0-3.0 Prevention of systemic embolism 2.0-3.0 HIGH RISK: Mechanical prosthetic valves 2.5-3.5 PROon 09-26-2023 INR Coag (PPP) [Relative time] 1.0 {INR} Normal [facility] ([place] Comment on above: Result Comment: [employer] (CHEST, 1992, 102:312S-25S) recommended therapeutic range for oral anticoagulant therapy is: LOW RISK: Prophylaxis of venous thrombosis INR: 2.0-3.0 Treatment of pulmonary embolism 2.0-3.0 Prevention of systemic embolism 2.0-3.0 HIGH RISK: Mechanical prosthetic valves 2.5-3.5 Performed By: #### G FR, ANEU, BMP, ADIFF, CBC #### [address] [address] PT Coag (PPP) [Time] 11.3 s Normal 9.0-14.4 [facility] ([place]) Comment on above: Result Comment: Effe ctive 10/02/07, Protime results may be affected by some antibiotics (i.e. Ciprofloxacin, Azithromycin, Bactrim) which may potentiate the action of oral anticoagulants, with further increases in Protime/INR. Performed By: #### G FR, ANEU, BMP, ADIFF, CBC #### [address] [address] .Auto Diffon 07-31-2023 Basophil, Absolute 0.0 10 3/mcL Normal 0.0-0.3 [facility] ([place]) Comment on above: Performed By: #### G FR, ANEU, BMP, ADIFF, CBC #### [address] [address] Basophils/100 WBC (Bld) 0.5 % Normal 0.0-2.5 [facility] ([place]) Comment on above: Performed By: #### G FR, ANEU, BMP, ADIFF, CBC #### [address] [address] Eosinophil, Absolute 0.3 10 3/mcL Normal 0.0-0.7 [facility] ([place]) Comment on above: Performed By: #### G FR, ANEU, BMP, ADIFF, CBC #### [address] [address] Eosinophils/100 WBC (Bld) 4.2 % Normal 0.0-6.0 [facility] ([place] Comment on above: Performed By: #### G FR, ANEU, BMP, ADIFF, CBC #### [address] [address] Lymphocyte, Absolute 0.7 10 3/mcL Low 0.9-4.3 [facility] ([place]) Comment on above: Performed By: #### G FR, ANEU, BMP, ADIFF, CBC #### [address] [address] Lymphocytes/100 WBC (Bld) 10.4 % Low 20.0-40.0 [facility] ([place] Comment on above: Performed By: #### G FR, ANEU, BMP, ADIFF, CBC #### [address] [address] Monocyte, Absolute 0.5 10 3/mcL Normal 0.1-1.4 [facility] ([place] Comment on above: Performed By: #### G FR, ANEU, BMP, ADIFF, CBC #### [address] [address] Monocytes/100 WBC (Bld) 8.6 % Normal 2.0-13.0 [facility] [place] Comment on above: Performed By: #### G FR, ANEU, BMP, ADIFF, CBC #### [address] [address] Neutrophils/100 WBC (Bld) 76.3 % High 50.0-75.0 [facility] [place] Comment on above: Performed By: #### G FR, ANEU, BMP, ADIFF, CBC #### [address] [address] .GFRon 07-31-2023 GFR 55 ml/min/1.73sqm Normal [facility] [place] Comment on above: Result Comment: GFR Population mean for , Non- Americans Ages 20-29 = 116 mL/min/1.73 sq.m. Ages 30-39 = 107 mL/min/1.73 sq.m. Ages 40-49 = 99 mL/min/1.73 sq.m. Ages 50-59 = 93 mL/min/1.73 sq.m. Ages 60-69 = 85 mL/min/1.73 sq.m. Ages 70+ = 75 mL/min/1.73 sq.m. Chronic Kidney Disease: Less than 60 mL/min/1.73 square meters End Stage Renal Disease: Less than 15 mL/min/1.73 square meters Performed By: #### G FR, ANEU, BMP, ADIFF, CBC #### [address] [address] GFR Non- 46 ml/min/1.73sqm Normal [facility] ([place] Comment on above: Result Comment: GFR Population mean for , Non- Americans Ages 20-29 = 116 mL/min/1.73 sq.m. Ages 30-39 = 107 mL/min/1.73 sq.m. Ages 40-49 = 99 mL/min/1.73 sq.m. Ages 50-59 = 93 mL/min/1.73 sq.m. Ages 60-69 = 85 mL/min/1.73 sq.m. Ages 70+ = 75 mL/min/1.73 sq.m. Chronic Kidney Disease: Less than 60 mL/min/1.73 square meters End Stage Renal Disease: Less than 15 mL/min/1.73 square meters Performed By: #### G FR, ANEU, BMP, ADIFF, CBC #### [address] [address] .NEUABSon 07-31-2023 Neutrophil, Absolute 4.8 10 3/mcL Normal 2.3-8.1 [facility] ([place]) Comment on above: Performed By: #### G FR, ANEU, BMP, ADIFF, CBC #### [place] [address] CBCon 07-31-2023 Erythrocyte distribution width (RBC) [Ratio] 15.3 % Normal 11.5-15.5 [facility] ([place] Comment on above: Performed By: #### G FR, ANEU, BMP, ADIFF, CBC #### [place] [address] Hematocrit (Bld) [Volume fraction] 33.6 % Low 40.0-52.0 [facility] ([place] Comment on above: Performed By: #### G FR, ANEU, BMP, ADIFF, CBC #### [place] [address] Hgb 11.2 G/dL Low 13.0-17.5 [facility] [place] Comment on above: Performed By: #### G FR, ANEU, BMP, ADIFF, CBC #### [place] [address] MCH (RBC) [Entitic mass] 28.3 pg Normal 27.0-33.0 [facility] ([place] Comment on above: Performed By: #### Denisse FR, ANEU, BMP, ADIFF, CBC #### [place] [address] MCHC 33.4 G/dL Normal 32.0-36.0 [facility] [place] Comment on above: Performed By: #### G FR, ANEU, BMP, ADIFF, CBC #### [place] [address] MCV (RBC) [Entitic vol] 84.6 fL Normal 81.0-100.0 [facility] ([place] Comment on above: Performed By: #### G FR, ANEU, BMP, ADIFF, CBC #### [place] [address] Platelet 176 10 3/mcL Normal 150-450 [facility] [place] Comment on above: Performed By: #### Denisse FR, ANEU, BMP, ADIFF, CBC #### [place] [address] Platelet mean volume (Bld) [Entitic vol] 7.3 fL Normal 6.4-10.5 [facility] ([place] Comment on above: Performed By: #### G FR, ANEU, BMP, ADIFF, CBC #### [place] [address] RBC 3.97 10 6/mcL Low 4.50-6.00 [facility] [place] Comment on above: Performed By: #### G FR, ANEU, BMP, ADIFF, CBC #### [place] [address] WBC 6.3 10 3/mcL Normal 4.5-10.8 [facility] [place] Comment on above: Performed By: #### G FR, ANEU, BMP, ADIFF, CBC #### [place] [address] CMPon 07-31-2023 Albumin Level 3.6 G/dL Normal 3.2-4.8 [facility] [place] Comment on above: Performed By: #### G FR, ANEU, BMP, ADIFF, CBC #### [place] [address] Albumin/Globulin [Mass ratio] 1.1 {ratio} Normal 0.9-1.6 [facility] ([place] Comment on above: Performed By: #### G FR, ANEU, BMP, ADIFF, CBC #### [place] [id number] ALP [Catalytic activity/Vol] 110 U/L Normal 38-126 [facility] [place] Comment on above: Performed By: #### G FR, ANEU, BMP, ADIFF, CBC #### [place] [address] ALT/SGPT <8 Low 12-55 [facility] [place] Comment on above: Performed By: #### G FR, ANEU, BMP, ADIFF, CBC #### [place] [address] AST [Catalytic activity/Vol] 14 U/L Normal 8-34 [facility] [place] Comment on above: Performed By: #### G FR, ANEU, BMP, ADIFF, CBC #### [place] [address] Bili Total 0.30 mg/dL Normal 0.20-1.20 [facility] ([place] Comment on above: Result Comment: Use of this assay is not recommended for patients undergoing treatment with eltrombopag due to the potential for falsely elevated results. Performed By: #### G FR, ANEU, BMP, ADIFF, CBC #### [place] [address] BUN/Creatinine Ratio 15.9 ratio Normal 10.0-22.0 [facility] ([place]) Comment on above: Performed By: #### G FR, ANEU, BMP, ADIFF, CBC #### [place] [address] Calcium [Mass/Vol] 9.4 mg/dL Normal 8.7-10.4 [facility] ([place]) Comment on above: Performed By: #### G FR, ANEU, BMP, ADIFF, CBC #### [address] [address] Chloride [Moles/Vol] 107 mmol/L Normal 98-110 [facility] ([place]) Comment on above: Performed By: #### G FR, ANEU, BMP, ADIFF, CBC #### [address] [address] CO2 [Moles/Vol] 30 mmol/L Normal 22-32 [facility] [place] Comment on above: Performed By: #### G FR, ANEU, BMP, ADIFF, CBC #### [address] [address] Creatinine [Mass/Vol] 1.57 mg/dL High 0.60-1.40 [facility] ([place] Comment on above: Performed By: #### G FR, ANEU, BMP, ADIFF, CBC #### [address] [address] Electrolyte Balance 6.0 mEq/L Normal 4.0-15.0 [facility] ([place]) Comment on above: Performed By: #### G FR, ANEU, BMP, ADIFF, CBC #### [address] [address] Globulin 3.3 G/dL Normal 1.5-3.8 [facility] [place] Comment on above: Performed By: #### G FR, ANEU, BMP, ADIFF, CBC #### [address] [address] Glucose [Mass/Vol] 167 mg/dL High 70-110 [facility] ([place]) Comment on above: Performed By: #### G FR, ANEU, BMP, ADIFF, CBC #### [address] [address] Potassium [Moles/Vol] 3.7 mmol/L Normal 3.5-5.0 [facility] ([place] Comment on above: Performed By: #### G FR, ANEU, BMP, ADIFF, CBC #### [address] [address] Sodium [Moles/Vol] 143 mmol/L Normal 136-145 [facility] ([place]) Comment on above: Performed By: #### G FR, ANEU, BMP, ADIFF, CBC #### [facility] [address] [place] [address] Total Protein 6.9 G/dL Normal 5.7-8.2 [facility] ([place] Comment on above: Result Comment: No te - New Reference Range in effect 19 Performed By: #### G FR, ANEU, BMP, ADIFF, CBC #### [facility] [address] [place] [address] Urea nitrogen [Mass/Vol] 25.0 mg/dL High 8.0-22.0 [facility] [place] Comment on above: Performed By: #### G FR, ANEU, BMP, ADIFF, CBC #### [facility] [address] [place] [address] LABORATORYOrdered By: SYSTEM SYSTEM on 07-31-2023 Albumin BCP dye [Mass/Vol] 3.6 G/dL Normal 3.2 - 4.8 G/dL ADM SS Albumin/Globulin [Mass ratio] 1.1 {ratio} Normal 0.9 - 1.6 ratio ADM SS ALP [Catalytic activity/Vol] 110 U/L Normal 38 - 126 U/L ADM SS ALT No additional P-5'-P [Catalytic activity/Vol] U/L 1 Low 12 - 55 U/L ADM SS AST [Catalytic activity/Vol] 14 U/L Normal 8 - 34 U/L ADM SS Basophils (Bld) [#/Vol] 0.0 103/mcL Normal 0.0 - 0.3 10^3/mcL Workflow SS Basophils/100 WBC (Bld) 0.5 % Normal 0.0 - 2.5 % Workflow SS Bilirubin [Mass/Vol] 0.30 mg/dL Normal 0.20 - 1.20 mg/dL ADM SS Comment on above: Interpretive Data: U se of this assay is not recommended for patients undergoing treatment with eltrombopag due to the potential for falsely elevated results. Calcium [Mass/Vol] 9.4 mg/dL Normal 8.7 - 10. 4 mg/dL ADM SS Chloride [Moles/Vol] 107 mmol/L Normal 98 - 11 0 mEq/L ADM SS CO2 [Moles/Vol] 30 mmol/L Normal 22 - 32 mEq/L ADM SS Creatinine [Mass/Vol] 1.57 mg/dL High 0.60 - 1.40 mg/dL ADM SS Electrolyte Balance 6.0 mEq/L Normal 4.0 - 15 .0 mEq/L ADM SS Eosinophils (Bld) [#/Vol] 0.3 103/mcL Normal 0.0 - 0.7 10^3/mcL Workflow SS Eosinophils/100 WBC (Bld) 4.2 % Normal 0.0 - 6.0 % Workflow SS Erythrocyte distribution width (RBC) [Ratio] 15.3 % Normal 11.5 - 15.5 % Workflow SS GFR/1.73 sq M.predicted among blacks MDRD (S/P/Bld) [Vol rate/Area] 55 ml/min/1.73sqm Invalid Interpretation Code [employer] S Comment on above: Interpretive Data: GFR Population mean for , Non- Americans Ages 20-29 = 116 mL/min/1.73 sq.m. Ages 30-39 = 107 mL/min/1.73 sq.m. Ages 40-49 = 99 mL/min/1.73 sq.m. Ages 50-59 = 93 mL/min/1.73 sq.m. Ages 60-69 = 85 mL/min/1.73 sq.m. Ages 70+ = 75 mL/min/1.73 sq.m. Chronic Kidney Disease: Less than 60 mL/min/1.73 square meters End Stage Renal Disease: Less than 15 mL/min/1.73 square meters GFR/1.73 sq M.predicted among non-blacks MDRD (S/P/Bld) [Vol rate/Area] 46 ml/min/1.73sqm Invalid Interpretation Code [employer] S Comment on above: Interpretive Data: GFR Population mean for , Non- Americans Ages 20-29 = 116 mL/min/1.73 sq.m. Ages 30-39 = 107 mL/min/1.73 sq.m. Ages 40-49 = 99 mL/min/1.73 sq.m. Ages 50-59 = 93 mL/min/1.73 sq.m. Ages 60-69 = 85 mL/min/1.73 sq.m. Ages 70+ = 75 mL/min/1.73 sq.m. Chronic Kidney Disease: Less than 60 mL/min/1.73 square meters End Stage Renal Disease: Less than 15 mL/min/1.73 square meters Globulin 3.3 G/dL Normal 1.5 - 3.8 G/dL ADM SS Glucose [Mass/Vol] 167 mg/dL High 70 - 110 mg/dL ADM SS Hematocrit (Bld) [Volume fraction] 33.6 % Low 40.0 - 52.0 % AH Workflow SS Hemoglobin (Bld) [Mass/Vol] 11.2 G/dL Low 13.0 - 17.5 G/dL AH Workflow SS Lymphocytes (Bld) [#/Vol] 0.7 103/mcL Low 0.9 - 4.3 10^3/mcL AH Workflow SS Lymphocytes/100 WBC (Bld) 10.4 % Low 20.0 - 40.0 % AH Workflow SS MCH (RBC) [Entitic mass] 28.3 pg Normal 27.0 - 33.0 pg AH Workflow SS MCHC 33.4 G/dL Normal 32.0 - 36.0 G/dL AH Workflow SS MCV (RBC) [Entitic vol] 84.6 fL Normal 81.0 - 100.0 fL AH Workflow SS Monocytes (Bld) [#/Vol] 0.5 103/mcL Normal 0.1 - 1.4 10^3/mcL AH Workflow SS Monocytes/100 WBC (Bld) 8.6 % Normal 2.0 - 13.0 % AH Workflow SS Neutrophils (Bld) [#/Vol] 4.8 103/mcL Normal 2.3 - 8.1 10^3/mcL AH Workflow SS Neutrophils/100 WBC (Bld) 76.3 % High 50.0 - 75.0 % AH Workflow SS Platelet mean volume (Bld) [Entitic vol] 7.3 fL Normal 6.4 - 10.5 fL AH Workflow SS Platelets (Bld) [#/Vol] 176 103/mcL Normal 150 - 450 10^3/mcL AH Workflow SS Potassium [Moles/Vol] 3.7 mmol/L Normal 3.5 - 5.0 mEq/L ADM SS Protein [Mass/Vol] 6.9 G/dL Normal 5.7 - 8.2 G/dL AH ADM SS Comment on above: Interpretive Data: * *Note - New Reference Range in effect 19 RBC (Bld) [#/Vol] 3.97 106/mcL Low 4.50 - 6.0 0 10^6/mcL AH Workflow SS Sodium [Moles/Vol] 143 mmol/L Normal 136 - 145 mEq/L AH ADM SS Urea nitrogen [Mass/Vol] 25.0 mg/dL High 8.0 - 22.0 mg/dL AH ADM SS Urea nitrogen/Creatinine [Mass ratio] 15.9 ratio Normal 10.0 - 22.0 ratio AH ADM SS WBC (Bld) [#/Vol] 6.3 103/mcL Normal 4.5 - 10.8 10^3/mcL Workflow SS LABORATORYOrdered By: Michelle Mccollum on 07-31-2023 PT Coag (PPP) [Time] 12.3 s Normal 9.0 - 1 4.4 seconds [facility] Comment on above: Interpretive Data: E ffective 10/02/07, Protime results may be affected by some antibiotics (i.e. Ciprofloxacin, Azithromycin, Bactrim) which may potentiate the action of oral anticoagulants, with further increases in Protime/INR. PT International Ratio 1.1 ratio Invalid Interpretation Code [facility] Comment on above: Interpretive Data: Audrey mendez [employer] (CHEST, 1991, 102:312S-25S) recommended therapeutic range for oral anticoagulant therapy is: LOW RISK: Prophylaxis of venous thrombosis INR: 2.0-3.0 Treatment of pulmonary embolism 2.0-3.0 Prevention of systemic embolism 2.0-3.0 HIGH RISK: Mechanical prosthetic valves 2.5-3.5 PROon 07-31-2023 INR Coag (PPP) [Relative time] 1.1 {INR} Normal [facility] ([place] Comment on above: Result Comment: [employer] (CHEST, 1991, 102:312S-25S) recommended therapeutic range for oral anticoagulant therapy is: LOW RISK: Prophylaxis of venous thrombosis INR: 2.0-3.0 Treatment of pulmonary embolism 2.0-3.0 Prevention of systemic embolism 2.0-3.0 HIGH RISK: Mechanical prosthetic valves 2.5-3.5 Performed By: #### G FR, ANEU, BMP, ADIFF, CBC #### [facility] [address] [place] [address] PT Coag (PPP) [Time] 12.3 s Normal 9.0-14.4 [facility] ([place]) Comment on above: Result Comment: Effe ctive 10/02/07, Protime results may be affected by some antibiotics (i.e. Ciprofloxacin, Azithromycin, Bactrim) which may potentiate the action of oral anticoagulants, with further increases in Protime/INR. Performed By: #### G FR, ANEU, BMP, ADIFF, CBC #### [facility] [address] [place] [address] 36on 06-06-2023 36 Name of caller: [place] Contact phone number: [phone] Relationship to Patient: Residential Provider: Dr Calloway Practice: Pulm Chief Complaint/Reason for Call: Patient was to be seen in one year 01-19-24. 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 To schedule an appointment you need to talk to [place] only. Also, requesting last office visit notes to be faxed to: [phone] Please advise accordingly. Best time of day caller can be reached: any Patient advised that office/PCP has 24-48 business hours to return their call: No Normal [facility] Office Visiton 01-18-2023 Follow-up visit [id number] Samy Wells 1965 Date Provider Department Center 01/18/2023 [id number]-DWINDRSAMUEL CALLOWAY [facility] None Family History Problem Relation Age of Onset Diabetes Paternal Grandmother Stroke Maternal Grandmother Alzheimer's disease Mother Stroke Mother Coronary artery disease Paternal Grandfather Stroke Maternal Grandfather Diabetes Mother Cancer Father Coronary artery disease Father Cancer Sister Comments: thyroid Family Status - Relation Status Age at Paternal Grandmother Maternal Grandmother Mother Paternal Grandfather Maternal Grandfather Father Notes: stomach Sister Level of Service:01522 OR OFFICE/OUTPATIENT ESTABLISHED MOD MDM 30-39 MIN Reason for Visit and Comments: Follow-up [704563] Normal [facility] PATINSon 01-18-2023 PATINS YOUR APPOINTMENT TOHugh ALVAREZ WAS WITH THE [facility] L[facility]G NODULE CLINIC, COPD CLINIC, PULMONARY AND SLEEP MEDICINE OFFICE. PLEASE CALL OUR OFFICE AT [phone] IF YOU HAVE NOT RECEIVED YOUR TEST RESULTS 7 DAYS AFTER TESTING IS COMPLETED. PLEASE REMEMBER TO REQUEST REFILLS AT YOUR OFFICE VISITS. PHONE/FAX REQUESTS REQUIRE 48-72 HOURS FOR RESPONSE. A FRIENDLY REMINDER COPAYS ARE DUE AT TIME OF SERVICE. THANK YOU. Our Patients Are Important! We want to improve and you can help. After your visit we want you to feel: Listened to, Respected and have your health care explained. You may receive a survey asking you about your visit. Please complete the survey. We will use your feedback to make improvements. COVID-19 VACCINATION INFORMATION: PH. [phone] HEALTH.ORG/CORONAVIRUS/VACCI NE [facility] Central Scheduling [phone] [facility] Sleep Scheduling [phone] Normal [facility] VIDHon 12-21-2022 Vit. D 25-Hydroxy 52.2 ng/mL Normal [facility] ([place] Comment on above: Result Comment: Inte rpretive Values Based on Total 25(OH)D: Severe Deficiency <20 ng/mL Mild to Moderate Deficiency 20-30 ng/mL Optimum Levels 30-100 ng/mL Toxicity Possible >100 ng/mL Performed By: #### V IDH #### [place] [address] LABORATORYOrdered By: Jocelyn Magaña on 10-27-2022 Blood Glucose Testing Reason Routine (10/27/22 9:10 AM) [facility] Work Phone: Glucose [Mass/Vol] 242 mg/dL Invalid Interpretation Code 70 - 110 mg/dL [facility] Work Phone: Office Visiton 06-22-2022 Follow-up visit [id number] Samy Wells 1965 M Date Provider Department Center 06/22/2022 [id number]-RBAJLDSAMUEL HIGGISN [facility] PUL None Family History Problem Relation Age of Onset Diabetes Paternal Grandmother Stroke Maternal Grandmother Alzheimer's disease Mother Stroke Mother Coronary artery disease Paternal Grandfather Stroke Maternal Grandfather Diabetes Mother Cancer Father Coronary artery disease Father Cancer Sister Comments: thyroid Family Status - Relation Status Age at Paternal Grandmother Maternal Grandmother Mother Paternal Grandfather Maternal Grandfather Father Notes: stomach Sister Level of Service:50842 OR OFFICE/OUTPATIENT ESTABLISHED MOD MDM 30-39 MIN Reason for Visit and Comments: Follow-up [[id number]] [facility] PATINSon 06-22-2022 PATINS YOUR APPOINTMENT TOHugh ALVAREZ WAS WITH THE [facility] LUNG NODULE CLINIC, COPD CLINIC, PULMONARY AND SLEEP MEDICINE OFFICE. PLEASE CALL OUR OFFICE AT [phone] IF YOU HAVE NOT RECEIVED YOUR TEST RESULTS 7 DAYS AFTER TESTING IS COMPLETED. PLEASE REMEMBER TO REQUEST REFILLS AT YOUR OFFICE VISITS. PHONE/FAX REQUESTS REQUIRE 48-72 HOURS FOR RESPONSE. A FRIENDLY REMINDER COPAYS ARE DUE AT TIME OF SERVICE. THANK YOU. Our Patients Are Important! We want to improve and you can help. After your visit we want you to feel: Listened to, Respected and have your health care explained. You may receive a survey asking you about your visit. Please complete the survey. We will use your feedback to make improvements. COVID-19 VACCINATION INFORMATION: PH. [phone] HEALTH.[email or web address]/CORONAVIRUS/VACCI NE [facility] Central Scheduling [phone] [facility] Sleep Scheduling [phone] [facility] Hemoglobin A1con 03-02-2021 Glucose [Mass/Vol] 209 mg/dL Normal [facility] Reference Lab Comment on above: Performed By: #### H BA1C #### [facility] Routine Lab [address] [place], [place] [address] HbA1c (Bld) [Mass fraction] 8.9 % High 4.3-5.6 [facility] Reference Lab Comment on above: Performed By: #### H BA1C #### [facility] Routine Lab [address] [place], [place] [address] US Retroperitoneal Completeo n 02-09-2021 US Retroperitoneal Complete Patient Name: CHITO WELLS Ultrasound ACCESSION EXAM DATE/TIME PROCEDURE ORDERING PROVIDER [id number] 02/09/2021 14:26 EST US Retroperitoneal [id number] -MICHELA, Complete DENISHA CPT code 32968 Reason For Exam (US Retroperitoneal Complete) Hydronephrosis Report RENAL ULTRASOUND: INDICATION: Hydronephrosis COMPARISON: 01/08/2017 Sonographic images of the bilateral kidneys and bladder were obtained. The right kidney measures 11.2 x 5.0 x 4.7 cm. Parenchymal echotexture is normal. No focal lesions are seen. There is no evidence of hydronephrosis or renal calculus. The left kidney measures 10.5 x 3.8 x 4.7 cm. Parenchymal echotexture is normal. No focal lesions are seen. There is no evidence of hydronephrosis or renal calculus. No mass or fluid collection is seen adjacent to the kidneys. The bladder is incompletely distended. IMPRESSION: Unremarkable renal ultrasound. Report Dictated on Final Dictated: 02/10/2021 9:33 am Dictating Physician: DO OSBORNE ALFRED Signed Date and Time: 02/10/2021 9:34 am Signed by: DO OSBORNE ALFRED Transcribed Date and Time: 02/10/2021 9:33 Normal [facility] US Scrotum (Contents)on 01-19 US Scrotum (Contents) [id number] ACCESSION EXAM DATE/TIME PROCEDURE ORDERING PROVIDER [id number] 02/09/2021 14:27 EST US Scrotum (Contents) [id number] DENISHA ERIC CPT code 83219 Reason For Exam (US Scrotum (Contents)) Testicular pain Report ULTRASOUND SCROTUM: CLINICAL INDICATION: Testicular pain. TECHNIQUE: Ultrasonographic evaluation of the scrotal contents, including color flow and spectral Doppler imaging was performed. COMPARISON: None. FINDINGS: RIGHT: Testicle: Normal in size without focal lesion. Heterogeneous echotexture of the testicle. Normal color and Doppler waveforms Size: 3.3 x 2.3 x 1.7 cm Epididymis: Normal in size and echotexture. No focal lesion. Hydrocele: None Varicocele*: None LEFT: Testicle: Normal in size and echotexture without focal lesion. Normal color and Doppler waveforms Size: 2.6 x 2.2 x 1.6 cm Epididymis: Normal in size and echotexture. No focal lesion. Hydrocele: None Varicocele*: None Other Findings: None IMPRESSION: 1. No testicular torsion or epididymoorchitis. 2. Heterogeneity of the right testicle, nonspecific but can be seen in history of trauma, infection or seminiferous tubular atrophy. Report Dictated on Final Dictated: 02/13/2021 8:34 pm Dictating Physician: MD FOWLER NICHOLAS Signed Date and Time: 02/13/2021 8:35 pm Signed by: MD FOWLER NICHOLAS Transcribed Date and Time: 02/13/2021 8:34 Normal [facility] Basic Metabolic Panelon 08-0 Calcium [Mass/Vol] 9.9 mg/dL Normal 8.4-10.4 [facility] Comment on above: Performed By: #### Audrey TILLMAN CMP3 #### [facility] [address] [place] [address] Anion gap [Moles/Vol] 10 mmol/L Normal 3-13 [facility] Comment on above: Performed By: #### Audrey TILLMAN CMP3 #### [facility] [address] [place] [address] CO2 [Moles/Vol] 31 mmol/L High 22-30 [facility] Comment on above: Performed By: #### Audrey TILLMAN CMP3 #### [facility] [address] [place] [address] Creatinine [Mass/Vol] 1.77 mg/dL High 0.52-1.25 [facility] Comment on above: Performed By: #### Audrey TILLMAN CMP3 #### [facility] [address] [place] [place] [address] GFR/1.73 sq M.predicted among blacks MDRD (S/P/Bld) [Vol rate/Area] 49.1 mL/min/{1.73_m2} Abnormal >60 [facility] Comment on above: Performed By: #### Audrey TILLMAN CMP3 #### [facility] [address] [place] [address] GFR/1.73 sq M.predicted among non-blacks MDRD (S/P/Bld) [Vol rate/Area] 42.3 mL/min/{1.73_m2} Abnormal >60 [facility] Comment on above: Result Comment: KDIG O guidelines provide the following GFR categories: Stage GFR(ml/min/1.73 m2) Terms G1 >=90 Normal or high G2 60-89 Mildly decreased* G3a 45-59 Mildly to moderately decreased G3b 30-44 Moderately to severely decreased G4 15-29 Severely decreased G5 <15 Kidney failure *Relative to young adult level. In the absence of evidence of kidney damage, neither GFR category G1 nor G2 fulfill the criteria for CKD. The CKD-EPI equation is validated in individuals 18 years of age and older. Currently the best equation for estimating glomerular filtration rate (GFR) from serum creatinine in children is the Bedside Rhodes equation. It is less accurate in patients with extremes of muscle mass, restriction of dietary protein, ingestion of creatine, extra-renal metabolism of creatinine, or treatment with medications that affect renal tubular creatinine secretion. Performed By: #### Audrey TILLMAN CMP3 #### [facility] [address] [place] [address] Glucose [Mass/Vol] 305 mg/dL High 70-100 [facility] Comment on above: Performed By: #### Audrey TILLMAN CMP3 #### [facility] [address] [place] [address] Urea nitrogen [Mass/Vol] 33 mg/dL High 7-20 [facility] Comment on above: Performed By: #### Audrey TILLMAN CMP3 #### [facility] [address] [place] [address] Chloride [Moles/Vol] 96 mmol/L Low 98-107 [facility] Comment on above: Performed By: #### Audrey TILLMAN CMP3 #### [facility] [address] [place] [address] Potassium [Moles/Vol] 4.0 mmol/L Normal 3.5-5.1 [facility] Comment on above: Performed By: #### Audrey TILLMAN CMP3 #### [facility] [address] [place] [address] Sodium [Moles/Vol] 137 mmol/L Normal 135-145 [facility] Comment on above: Performed By: #### T LAYNE CMP3 #### [facility] [address] [place] [address] Complete Urinalysison 2020 Bacteria Few (1-5) Abnormal Negative [facility] Comment on above: Result Comment: . Performed By: #### C UA2 #### [facility] [address] [place] [address] RBC, Urine 0 - 2 Normal 0-2 [facility] Comment on above: Result Comment: . Performed By: #### C UA2 #### [facility] [address] [place] [address] Squamous Epithelial 0 - 2 Normal 3-5 [facility] Comment on above: Result Comment: . Performed By: #### C UA2 #### [facility] [address] [place] [address] VOLUME, URINE 8-12 ml Normal [facility] Comment on above: Result Comment: . Performed By: #### C UA2 #### [facility] [address] [place] [address] WBC, Urine 0 - 2 Normal 0-5 [facility] Comment on above: Result Comment: . Performed By: #### C UA2 #### [facility] [address] [place] [address] Appearance (U) Clear Normal Clear [facility] Comment on above: Result Comment: . Performed By: #### C UA2 #### [facility] [address] [place] [address] Bilirubin,Urine Negative Normal Negative [facility] Comment on above: Result Comment: . Performed By: #### C UA2 #### [facility] [address] [place] [address] Color (U) COLORLESS Normal Lt. Yellow [facility] Comment on above: Result Comment: . Performed By: #### C UA2 #### [facility] [address] [place] [address] Glucose Ql (U) 150 mg/dL Abnormal Normal (<70) [facility] Comment on above: Result Comment: . Performed By: #### C UA2 #### [facility] [address] [place] [address] Ketone,Urine Negative Normal Negative [facility] Comment on above: Result Comment: . Performed By: #### C UA2 #### [facility] [address] [place] [address] Leukocytes,Urine Negative Normal Negative [facility] Comment on above: Result Comment: . Performed By: #### C UA2 #### [facility] [address] [place] [address] Nitrites,Urine Negative Normal Negative [facility] Comment on above: Result Comment: . Performed By: #### C UA2 #### [facility] [address] [place] [address] Occult Blood,Urine Negative Normal Negative [facility] Comment on above: Result Comment: . Performed By: #### C UA2 #### [facility] [address] [place] [address] pH,Urine 5.5 Normal 5.0-8.0 [facility] Comment on above: Result Comment: . Performed By: #### C UA2 #### [facility] [address] [place] [address] Protein (U) [Mass/Vol] 100 mg/dL Abnormal Negative [facility] Comment on above: Result Comment: . Performed By: #### C UA2 #### [facility] [address] [place] [address] Specific [place],Urine 1.009 Normal 1.005 - 1.030 [facility] Comment on above: Result Comment: . Performed By: #### C UA2 #### [facility] [address] [place] [address] Urobilinogen,Urine Normal Normal Normal (0-1) [facility] Comment on above: Result Comment: . Performed By: #### C UA2 #### [facility] [address] [place] [address] Hemoglobin A1Con 10-22-2020 Glucose [Mass/Vol] 206 mg/dL Normal [facility] Comment on above: Performed By: #### Audrey TILLMAN CMP3 #### [facility] [address] [place] [address] HbA1c (Bld) [Mass fraction] 8.8 % Abnormal [facility] Comment on above: Result Comment: Norm al less than 5.7% Prediabetes 5.7% to 6.4% Diabetes 6.5% or higher --HgbA1C levels may not be accurate in patients who have renal disease, received recent blood transfusions, are anemic, or who have dyshemoglobinemia. Performed By: #### Audrey TILLMAN CMP3 #### [facility] [address] [place] [address] Hemogram w/ Autodiffon 10-22 Abs Baso Cnt 0.1 10*3/uL Normal 0.0-0.2 [facility] Comment on above: Performed By: #### JOSE SENA #### [facility] [address] [place] [address] Abs Neutrophile Cnt 6.6 10*3/uL Normal 1.8-7.0 [facility] Comment on above: Performed By: #### JOSE SENA #### [facility] [address] [place] [address] Basophils/100 WBC (Bld) 1.2 % Normal 0.0-2.0 [facility] Comment on above: Performed By: #### Audrey TILLMAN CMP3 #### [facility] [address] [place] [address] Eosinophils (Bld) [#/Vol] 0.3 10*3/uL Normal 0.0-0.5 [facility] Comment on above: Performed By: #### Audrey TILLMAN CMP3 #### [facility] [address] [place] [address] Eosinophils/100 WBC (Bld) 3.3 % Normal 1.0-6.0 [facility] Comment on above: Performed By: #### Audrey TILLMAN CMP3 #### [facility] [address] [place] [address] Erythrocyte distribution width (RBC) [Ratio] 14.3 % Normal 11.5-14.5 [facility] Comment on above: Performed By: #### Audrey TILLMAN CMP3 #### [facility] [address] [place] [address] Granulocytes/100 WBC (Bld) 71.9 % Normal 40.0-80.0 [facility] Comment on above: Performed By: #### Audrey TILLMAN CMP3 #### [facility] [address] [place] [address] Hematocrit (Bld) [Volume fraction] 41.9 % Normal 40.0-52.0 [facility] Comment on above: Performed By: #### Audrey TILLMAN CMP3 #### [facility] [address] [place] [address] Hemoglobin (Bld) [Mass/Vol] 14.4 g/dL Normal 13.0-18.0 [facility] Comment on above: Performed By: #### Audrey TILLMAN CMP3 #### [facility] [address] [place] [address] Lymphocytes (Bld) [#/Vol] 1.3 10*3/uL Normal 1.0-4.3 [facility] Comment on above: Performed By: #### Audrey TILLMAN CMP3 #### [facility] [address] [place] [address] Lymphocytes/100 WBC (Bld) 14.4 % Low 20.0-40.0 [facility] Comment on above: Performed By: #### Audrey TILLMAN CMP3 #### [facility] [address] [place] [address] MCH (RBC) [Entitic mass] 28.5 pg Normal 26.0-34.0 [facility] Comment on above: Performed By: #### Audrey TILLMAN CMP3 #### [facility] [address] [place] [address] MCHC 34.5 % Normal 32.0-36.0 [facility] Comment on above: Performed By: #### Audrey TILLMAN CMP3 #### [facility] [address] [place] [address] MCV (RBC) [Entitic vol] 82.7 fL Normal 80.0-98.0 [facility] Comment on above: Performed By: #### Audrey TILLMAN CMP3 #### [facility] [address] [place] [address] Monocytes (Bld) [#/Vol] 0.8 10*3/uL Normal 0.0-0.8 [facility] Comment on above: Performed By: #### Audrey TILLMAN CMP3 #### [facility] [address] [place] [address] Monocytes/100 WBC (Bld) 9.2 % Normal 2.0-10.0 [facility] Comment on above: Performed By: #### Audrey TILLMAN CMP3 #### [facility] [address] [place] [address] Platelet mean volume (Bld) [Entitic vol] 6.7 fL Low 7.4-10.4 [facility] Comment on above: Performed By: #### Audrey TILLMAN CMP3 #### [facility] [address] [place] [address] Platelets (Bld) [#/Vol] 150 10*3/uL Normal 140-440 [facility] Comment on above: Performed By: #### Audrey TILLMAN CMP3 #### [facility] [address] [place] [address] RBC (Bld) [#/Vol] 5.06 10*6/uL Normal 4.40-5.90 [facility] Comment on above: Performed By: #### Audrey TILLMAN CMP3 #### [facility] [address] [place] [address] WBC (Bld) [#/Vol] 9.2 10*3/uL Normal 3.6-10.7 [facility] Comment on above: Performed By: #### Audrey TILLMAN CMP3 #### [facility] [address] [place] [address] Sed Rateon 10-22-2020 Sed Rate 24 mm/h High 0-10 [facility] Comment on above: Performed By: #### T ROPN, CMP3 #### [facility] [address] [place] [address] ALLIED HEALTHon 10-12-2020 ALLIED HEALTH HNO ID: [id number] Author: RT Regla(R) Service: Radiology Author Type: [employer]ace Type: Allied Health Filed: 10/12/2020 2:13 AM Note Text: Radiology Service Progress Note DATE OF SERVICE: October 12, 2020 TIME: 2:13 AM PATIENT IDENTITY VERIFICATION COMPLETED USING TWO (2) STANDARD IDENTIFIERS: Name and Date of confirmed by patient verbally and Name and Date of confirmed by identification band. FALL SCREENING: Has the patient had 2 falls in the last year or 1 fall with injury or currently using an Ambulatory Assistive Device (Walker, Cane, Wheelchair, Crutches, etc.)? Emergency Room Patient: Screened in ED PATIENT GENDER DATA: Male PATIENT RELEVANT IMPLANT DATA REVIEWED: Not Applicable ALLERGIES: Reviewed and unchanged CONTRAST ALLERGY: NO. EXAM: CT -CONTRAST INDUCED NEPHROPATHY RISK FACTORS: Not applicable CREATININE: Creatinine Date Value Ref Range Status 10/12/2020 1.59 (H) 0.73 - 1.22 mg/dL Final 07/26/2019 1.54 (H) 0.73 - 1.22 mg/dL Final 04/16/2019 1.92 (H) 0.73 - 1.22 mg/dL Final eGFR-All Other Races Date Value Ref Range Status 10/12/2020 46 . Final Comment: eGFR (Estimated GFR) Units of measure: mL/min/1.73 meters squared eGFR is derived from the reexpressed MDRD Study equation using the following parameters: serum creatinine, age, gender and race. The creatinine assay has been calibrated to be traceable to IDMS. An eGFR <60 mL/min/1.73m2 for >3 months is consistent with chronic kidney disease. Refer to KDOQI guidelines for clinical interpretation. In patients with unstable renal function, e.g. those with acute kidney injury, the eGFR may not accurately reflect actual GFR. eGFR- Date Value Ref Range Status 10/12/2020 55 Final P.O.C.T. RESULTS: POC done: Yes, See Lab Tab October 12, 2020 TREATMENT: N/A PERIPHERAL IV DATA: Inpatient - refer to LDA documentation RADIOLOGY DEPARTMENT: CT; Exam(s) Completed: Spine SIGNATURE: RT Regla(R) PATIENT NAME: Chito Wells DATE: October 12, 2020 TIME: 2:13 AM [facility] Blood Cultureon 10-12-2020 Bacteria identified Cx Nom (Bld) Sp. Request/Comment: - The blood culture bottles are underfilled. Adding volume lower or higher than the 8 to 10 mL per bottle, which is the manufacturers recommended volume, may adversely affect the recovery and/or detection of organisms. 9.2 CC Culture Result - No growth 5 days Normal [facility] Comment on above: Performed By: #### B LCUL #### [place] [phone] Bacteria identified Cx Nom (Bld) Sp. Request/Comment: - The blood culture bottles are underfilled. Adding volume lower or higher than the 8 to 10 mL per bottle, which is the manufacturers recommended volume, may adversely affect the recovery and/or detection of organisms. 10.5 CC Culture Result - No growth 5 days Normal [facility] Comment on above: Performed By: #### B LCUL #### [place] [phone] C-Reactive Proteinon 021 C-Reactive Protein 0.9 mg/dL High <0.9 [facility] Comment on above: Performed By: #### W SR #### [place] [phone] #### CRP, CBCDIF, CMP, MG1 #### [facility] [address] [place] [address] CBC and Differentialon 10-12 Abs Baso 0.06 k/uL Normal <0.11 [facility] Comment on above: Performed By: #### W SR #### [place] [phone] #### CRP, CBCDIF, CMP, MG1 #### [facility] [address] [place] [address] Abs Jennings 0.63 k/uL Normal <0.87 [facility] Comment on above: Performed By: #### W SR #### [place] [phone] #### CRP, CBCDIF, CMP, MG1 #### [facility] [address] [place] [address] Abs Neut 4.70 k/uL Normal 1.45-7.50 [facility] Comment on above: Performed By: #### W SR #### [place] [phone] #### CRP, CBCDIF, CMP, MG1 #### [facility] [address] [place] [address] Absolute nRBC <0.01 Normal <0.01 [facility] Comment on above: Performed By: #### W SR #### [place] [phone] #### CRP, CBCDIF, CMP, MG1 #### [facility] [address] [place] [address] Basophils/100 WBC (Bld) 0.9 % Normal [facility] Comment on above: Performed By: #### W SR #### [place] [phone] #### CRP, CBCDIF, CMP, MG1 #### [facility] [address] [place] [address] DTYPE Auto Diff Normal [facility] Comment on above: Performed By: #### W SR #### [place] [phone] #### CRP, CBCDIF, CMP, MG1 #### [facility] [address] [place] [address] Eosinophils (Bld) [#/Vol] 0.27 10*3/uL Normal <0.46 [facility] Comment on above: Performed By: #### W SR #### [address], [place] [address] #### CRP, CBCDIF, CMP, MG1 #### [facility] [address] [place] [address] Eosinophils/100 WBC (Bld) 3.9 % Normal [facility] Comment on above: Performed By: #### W SR #### [place] [phone] #### CRP, CBCDIF, CMP, MG1 #### [facility] [address] [place] [address] Erythrocyte distribution width (RBC) [Ratio] 13.2 % Normal 11.5-15.0 [facility] Comment on above: Performed By: #### W SR #### [place] [phone] #### CRP, CBCDIF, CMP, MG1 #### [facility] [address] [place] [address] Hematocrit (Bld) [Volume fraction] 37.7 % Low 39.0-51.0 [facility] Comment on above: Performed By: #### W SR #### [place] [phone] #### CRP, CBCDIF, CMP, MG1 #### [facility] [address] [place] [address] Hemoglobin (Bld) [Mass/Vol] 12.7 g/dL Low 13.0-17.0 [facility] Comment on above: Performed By: #### W SR #### [place] [phone] #### CRP, CBCDIF, CMP, MG1 #### [facility] [address] [place] [address] Lymphocytes (Bld) [#/Vol] 1.25 10*3/uL Normal 1.00-4.00 [facility] Comment on above: Performed By: #### W SR #### [place] [phone] #### CRP, CBCDIF, CMP, MG1 #### [facility] [address] [place], [place] [id number] Lymphocytes/100 WBC (Bld) 18.1 % Normal [facility] Comment on above: Performed By: #### W SR #### [place] [phone] #### CRP, CBCDIF, CMP, MG1 #### [facility] [address] [place], [place] [phone] MCH 28.9 pG Normal 26.0-34.0 [facility] Comment on above: Performed By: #### W SR #### [place] [phone] #### CRP, CBCDIF, CMP, MG1 #### [facility] [address] [place] [address] MCHC (RBC) [Mass/Vol] 33.7 g/dL Normal 30.5-36.0 [facility] Comment on above: Performed By: #### W SR #### [place] [phone] #### CRP, CBCDIF, CMP, MG1 #### [facility] [address] [place] [address] MCV (RBC) [Entitic vol] 85.7 fL Normal 80.0-100.0 [facility] Comment on above: Performed By: #### W SR #### [facility] [address] [place] [phone] #### CRP, CBCDIF, CMP, MG1 #### [facility] [address] [place], [place] [phone] Monocytes/100 WBC (Bld) 9.1 % Normal [facility] Comment on above: Performed By: #### W SR #### [place] [phone] #### CRP, CBCDIF, CMP, MG1 #### [facility] [address] [place] [address] Neutrophils/100 WBC (Bld) 68.0 % Normal [facility] Comment on above: Performed By: #### W SR #### [place] [phone] #### CRP, CBCDIF, CMP, MG1 #### [facility] [address] NRBCs 0.0 /100 WBC Normal 0 [facility] Comment on above: Performed By: #### W SR #### [place] [phone] #### CRP, CBCDIF, CMP, MG1 #### [facility] [address] [place] [address] Platelet mean volume (Bld) [Entitic vol] 8.8 fL Low 9.0-12.7 [facility] Comment on above: Performed By: #### W SR #### [place] [phone] #### CRP, CBCDIF, CMP, MG1 #### [facility] [address] [place] [address] Platelets (Bld) [#/Vol] 127 10*3/uL Low 150-400 [facility] Comment on above: Performed By: #### W SR #### [place] [phone] #### CRP, CBCDIF, CMP, MG1 #### [facility] [address] [place], [place] [phone] RBC (Bld) [#/Vol] 4.40 10*6/uL Normal 4.20-6.00 [facility] Comment on above: Performed By: #### W SR #### [place] [phone] #### CRP, CBCDIF, CMP, MG1 #### [facility] [address] [place], [place] [address] WBC (Bld) [#/Vol] 6.91 10*3/uL Normal 3.70-11.00 [facility] Comment on above: Performed By: #### W SR #### [facility] [address] [place] [phone] #### CRP, CBCDIF, CMP, MG1 #### [facility] [address] [facility] [phone] CT LUMBAR SPINE W IVCONon CT LUMBAR SPINE W IVCON * * *Final Report* * * DATE OF EXAM: Oct 12 2020 2:12AM [facility] [place] LUMBAR SP[place] W IVCON / PROCEDURE REASON: Spine infection * * * * Physician Interpretation * * * * EXAMINATION: CT LUMBAR SPINE W IVCON CLINICAL HISTORY: Spine infection TECHNIQUE: Spiral, high resolution axial images were obtained of the lumbar spine after the administration of intravenous contrast with sagittal and coronal planar reconstructions. Contrast: [address] Dose-Length Product (DLP): 1551 mGy*cm CT Dose Reduction Employed: Automated exposure control (AEC) COMPARISON: 10/02/2019 RESULT: Limitations: Limited evaluation due to beam hardening artifact from patient's body habitus. Counting reference: Lumbosacral junction. There is complex transitional anatomy which is complicated by extensive postoperative change. For the purposes of spine labeling and in keeping with previously established numbering convention, there are 5 lumbar vertebrae. In this labeling scheme, there are bilateral ribs at L1 and there is partial lumbarization of S1. Alignment: Reversal of the normal lumbar lordosis, unchanged. No new malalignment. Bones: No evidence of an acute fracture within the limitations of image noise. No evidence of a lytic or blastic process. Redemonstrated extensive degenerative and postoperative changes with fusion across the disc space at L1-L2, L5-S1, and across the rudimentary disc space at from the transitional S1-S2. Multilevel laminectomy again noted. Persistent multifocal heterotopic ossification versus residual morselized bone graft in the laminectomy beds again noted. No evidence of new bony destructive process from prior exam. Tracks from prior lumbosacral posterior fusion hardware are noted. Other: Chronic postoperative changes of the dorsal paraspinal soft tissues. No abnormal paraspinal enhancement within the limitations of artifact related to patient body habitus. Atherosclerotic vascular calcifications. No additional findings on the casing grader image. Degenerative changes: Extensive multilevel degenerative changes again noted, most prominent in the visualized lower thoracic spine where there is at least moderate spinal canal stenosis at T10-T11 and T11-T12. No significant change in residual degenerative changes of the lumbar spine from prior exam with multilevel disc osteophyte complex formation and osseous neuroforaminal stenosis. IMPRESSION: No evidence of an acute process or significant change from 10/02/2019. Anatomic Thoracic/Lumbar Variant: Complex transitional anatomy as described. [employer] Detailer: PSC[employer] Transcribe Date/Time: Oct 12 2020 2:26A Dictated by : JOSE CAUSEY MD This examination was interpreted and the report reviewed and electronically signed by: JOSE CAUSEY MD on Oct 12 2020 2:47AM EST [id number] Normal [facility] Comp Metabolic Panelon 10-12 Albumin [Mass/Vol] 3.9 g/dL Normal 3.9-4.9 [facility] Comment on above: Performed By: #### W SR #### [place] [id number] [place] [phone] #### CRP, CBCDIF, CMP, MG1 #### [facility] [facility] [address] [place] [address] ALP [Catalytic activity/Vol] 96 U/L Normal 38-113 [facility] Comment on above: Performed By: #### W SR #### [facility] [place] [phone] #### CRP, CBCDIF, CMP, MG1 #### [facility] [address] [place], [place] [phone] ALT [Catalytic activity/Vol] 24 U/L Normal 10-54 [facility] Comment on above: Performed By: #### W SR #### [place] [phone] #### CRP, CBCDIF, CMP, MG1 #### [facility] [address] [place], [place] [phone] Anion gap [Moles/Vol] 11 mmol/L Normal 9-18 [facility] Comment on above: Performed By: #### W SR #### [facility] [address] [place] [phone] #### CRP, CBCDIF, CMP, MG1 #### [facility] [address] [place] [address] AST [Catalytic activity/Vol] 20 U/L Normal 14-40 [facility] Comment on above: Performed By: #### W SR #### [facility] [address] [place], [place] [phone] #### CRP, CBCDIF, CMP, MG1 #### [facility] [address] [place] [address] Bilirubin [Mass/Vol] 0.2 mg/dL Normal 0.2-1.3 [facility] [place] [facility] Comment on above: Performed By: #### W SR #### [place] [phone] #### CRP, CBCDIF, CMP, MG1 #### [facility] [address] [place] [address] Calcium [Mass/Vol] 8.9 mg/dL Normal 8.5-10.2 [facility] Comment on above: Performed By: #### W SR #### [place] [phone] #### CRP, CBCDIF, CMP, MG1 #### [facility] [address] [place] [address] Chloride [Moles/Vol] 97 mmol/L Normal 97-105 [facility] [place] [facility] Comment on above: Performed By: #### W SR #### [facility] [address] [place], [place] [phone] #### CRP, CBCDIF, CMP, MG1 #### [facility] [address] [place] [address] CO2 [Moles/Vol] 29 mmol/L Normal 22-30 [facility] Comment on above: Performed By: #### W SR #### [facility] [address] [place], [place] [phone] #### CRP, CBCDIF, CMP, MG1 #### [facility] [address] Creatinine [Mass/Vol] 1.59 mg/dL High 0.73-1.22 [facility] Comment on above: Performed By: #### W SR #### [facility] [phone] #### CRP, CBCDIF, CMP, MG1 #### [facility] [address] [place] [address] eGFR- Amer. 55 Normal [facility] Comment on above: Performed By: #### W SR #### [facility] [address] [place], [place] [phone] #### CRP, CBCDIF, CMP, MG1 #### [facility] [address] [place] [address] eGFR-All Other Races 46 . Normal [facility] [place] [facility] Comment on above: Result Comment: eGFR (Estimated GFR) Units of measure: mL/min/1.73 meters squared eGFR is derived from the reexpressed MDRD Study equation using the following parameters: serum creatinine, age, gender and race. The creatinine assay has been calibrated to be traceable to IDMS. An eGFR <60 mL/min/1.73m2 for >3 months is consistent with chronic kidney disease. Refer to KDOQI guidelines for clinical interpretation. In patients with unstable renal function, e.g. those with acute kidney injury, the eGFR may not accurately reflect actual GFR. Performed By: #### W SR #### [facility] [place] [phone] #### CRP, CBCDIF, CMP, MG1 #### [facility] [address] [place], [place] [phone] Glucose [Mass/Vol] 233 mg/dL High 74-99 [facility] Comment on above: Result Comment: The [place] Diabetes Association (ADA) provides guidance for cutoff values for fasting glucose and random glucose. The ADA defines fasting as no caloric intake for at least 8 hours. Fasting plasma glucose results between 100 to 125 mg/dL indicate increased risk for diabetes (prediabetes). Fasting plasma glucose results greater than or equal to 126 mg/dL meet the criteria for diagnosis of diabetes. In the absence of unequivocal hyperglycemia, results should be confirmed by repeat testing. In a patient with classic symptoms of hyperglycemia or hyperglycemic crisis, random plasma glucose results greater than or equal to 200 mg/dL meet the criteria for diagnosis of diabetes. Reference: Standards of Medical Care in Diabetes 2016, [place] Diabetes Association. Diabetes Care. 2016.39(Suppl 1). Performed By: #### W SR #### [facility] [address] [place] [address] #### CRP, CBCDIF, CMP, MG1 #### [place] [address] Potassium [Moles/Vol] 4.0 mmol/L Normal 3.7-5.1 [facility] Comment on above: Performed By: #### W SR #### [facility] [employer] [address] [place] [address] #### CRP, CBCDIF, CMP, MG1 #### [facility] [address] [place] [address] Protein [Mass/Vol] 6.6 g/dL Normal 6.3-8.0 [facility] Comment on above: Performed By: #### W SR #### [place] [address] #### CRP, CBCDIF, CMP, MG1 #### [facility] [address] [place] [address] Sodium [Moles/Vol] 137 mmol/L Normal 136-144 [facility] Comment on above: Performed By: #### W SR #### [facility] [employer] [address] [place] [address] #### CRP, CBCDIF, CMP, MG1 #### [facility] [address] [place] [address] Urea nitrogen [Mass/Vol] 24 mg/dL Normal 9-24 [facility] Comment on above: Performed By: #### W SR #### [address] [address] #### CRP, CBCDIF, CMP, MG1 #### [facility] 1000 [facility] [phone] ED NOTEon 10-12-2020 ED NOTE HNO ID: [id number] Author: Olga Chawla RN Service: ? Author Type: Registered Nurse Type: ED Notes Filed: 10/12/2020 5:13 AM Note Text: Report given to [facility] for transport to [facility] H60 Bed 5 [facility] ED NOTE HNO ID: [id number] Author: Liz Napoles RN Service: ? Author Type: Registered Nurse Type: ED Notes Filed: 10/11/2020 11:47 PM Note Text: Pt has come to the er for low back pain from Assisted Living in [place] per [facility] He said he has positive wound cultures from his back wound MRSA and E Coli Per the EMS the pt is known to cheek his pain meds and snort them at the [facility] ED PROV NOTEon 10-12-2020 ED PROV NOTE HNO ID: [id number] Author: Wei Alvarez DO Service: Emergency Medicine Author Type: Physician Type: ED Provider Notes Filed: 10/12/2020 4:29 AM Note Text: ED Provider Note Patient Name: Chito Wells SERVICE DATE: 10/11/20 History Patient presents with: Back Pain Lab AND Test Results: wound cultures of the back The patient is a 54-year-old male with a past medical history of chronic osteomyelitis of the lumbar spine insulin-dependent diabetes who presents with acute on chronic back pain and positive wound culture from nursing facility. Patient reports 2-week history of worsening back pain described as continuous aching worsened with movement and relieved by nothing. He reports nausea without vomiting. He reports chills and subjective fever. He underwent wound culture testing on October 07, 2020 which grew out MRSA as well as E. Coli is currently on doxycycline. He was sent in for further evaluation and care. He reports chronic muscle weakness to the lower extremities requiring him to use a Rollator. Denies any sensory changes. Denies traumatic injury. He reports multiple lumbar surgeries with recurrent infections with last one being 2014 with hardware removed from the lumbar spine at [facility] per patient. PAST MEDICAL HISTORY Diagnosis Date - Atherosclerotic heart disease of [place] coronary artery without angina pectoris - BPH (benign prostatic hyperplasia) flomax - Chronic osteomyelitis of spine (HCC) doxycycline - Chronic post-traumatic stress disorder (PTSD) after combat - Diastolic heart failure (HCC) - Esophageal reflux - Essential hypertension since 1998 - H/O drug abuse (HCC) cocaine, heroin - Hyperlipidemia rosuvastatin - Kidney disease stage 3 kidney disease without dialysis - Lymphoma in remission (HCC) - Major depression, recurrent (HCC) - Seizure (HCC) keppra - Spinal stenosis in cervical region - Type II or unspecified type diabetes mellitus without mention of complication, uncontrolled since 1993 PAST SURGICAL HISTORY Procedure Laterality Date - BACK SURGERY HX pt has had 5 back surgeries, one which removed all of the hardware placed down his spinal column - HERNIA REPAIR HX x 3 - KNEE SCOPE,DIAGNOSTIC 4 on each knee - REMOVAL GALLBLADDER - STENT heart x2 FAMILY HISTORY Problem Relation Age of Onset - Hypertension Mother - Heart Father - Stroke Father Social History Tobacco Use - Smoking status: Current Every Day Smoker Packs/day: 1.00 Years: 25.00 Pack years: 25.00 Types: Cigarettes - Smokeless tobacco: Never Used - Tobacco comment: cig- 0.5-2 ppd. sometimes uses electric cig Vaping Use - Vaping Use: Some days Substance and Sexual Activity - Alcohol use: Yes Comment: hx social binge drinking greater than 10 yrs ago, quit - Drug use: Not Currently Comment: hx cocaine, heroin use 10 yrs ago, quit - Sexual activity: Not Currently Comment: not asked ALLERGIES Allergen Reactions - Bleach (Sodium Hypo* Rash - Haldol [Haloperidol* Mental Status Change - Tylenol [Acetaminop* Other: See Comments - Vicodin [Hydrocodon* Vomiting tolerates Review of Systems Constitutional: Positive for chills, fatigue and fever. Negative for activity change, appetite change, diaphoresis and unexpected weight change. HENT: Negative. Eyes: Negative. Respiratory: Negative. Cardiovascular: Negative. Gastrointestinal: Negative. Genitourinary: Negative. Musculoskeletal: Positive for back pain. Negative for arthralgias, gait problem, joint swelling, myalgias, neck pain and neck stiffness. Skin: Positive for wound. Negative for color change, pallor and rash. Neurological: Negative. Psychiatric/Behavioral: Negative. All other systems reviewed and are negative. Physical Exam BP 155/79 Pulse 66 Temp (Src) 98.3 (Oral) Resp 20 Ht 6' 0 (1.83m) Wt 328 lb 1.6 oz (148.8kg) SpO2 96% BMI 44.49 kg/(m2). O2 Therapy: Room Air Physical Exam Vitals and nursing note reviewed. Constitutional: General: He is not in acute distress. Appearance: Normal appearance. He is not ill-appearing, toxic-appearing or diaphoretic. HENT: Head: Normocephalic and atraumatic. Nose: Nose normal. No congestion or rhinorrhea. Mouth/Throat: Pharynx: Oropharynx is clear. No oropharyngeal exudate or posterior oropharyngeal erythema. Eyes: General: Right eye: No discharge. Left eye: No discharge. Conjunctiva/sclera: Conjunctivae normal. Cardiovascular: Rate and Rhythm: Normal rate and regular rhythm. Heart sounds: Normal heart sounds. Pulmonary: Effort: Pulmonary effort is normal. Breath sounds: Normal breath sounds. Abdominal: Palpations: Abdomen is soft. Tenderness: There is no abdominal tenderness. Musculoskeletal: Cervical back: Normal range of motion and neck supple. Comments: Moves lower extremities with generalized weakness. (more content not included)... Normal [facility] Expedited [id number] 10-13-19 SARS-CoV-2 (COVID-19) RNA LEONIE+probe Ql (Unsp spec) UPPER RESPIRATORY TRACT SWAB Normal [facility] Comment on above: Performed By: #### E XCOVD #### [facility] [address] [place] [address] SARS-CoV-2 (COVID-19) RNA LEONIE+probe Ql (Unsp spec) Negative for COVID19 (SARS CoV2) by RT-PCR or equivalent method. Normal Negative for COVID19 (SARS CoV2) by RT-PCR or equivalent method. [facility] Comment on above: Result Comment: This test has been authorized by FDA under an Emergency Use Authorization (EUA). Performed By: #### E XCOVD #### [facility] 1000 [facility] [phone] Magnesiumon 10-12-2020 Magnesium [Mass/Vol] 1.8 mg/dL Normal 1.7-2.3 [facility] Comment on above: Performed By: #### W SR #### [place] [address] [place], [place] [address] #### CRP, CBCDIF, CMP, MG1 #### [facility] [address] [place] [address] Sed Rate Westergrenon 2020 Sed Rate Westergren Unable to assay. Carlos ntity not sufficient. Normal 0-15 [facility] Comment on above: Result Comment: Acco unt Credited Called to Rosalba [id number] 1210 A.D Performed By: #### W SR #### [place] [address] #### CRP, CBCDIF, CMP, MG1 #### [facility] [address] [place] [phone] Basic Metabolic Panelon 09-17 Calcium [Mass/Vol] 9.1 mg/dL Normal 8.4-10.4 [facility] Comment on above: Performed By: #### T ROPN, HEMDF, LFT3, BMP3 #### [facility] [address] [place] [address] Glucose [Mass/Vol] 349 mg/dL High 70-100 [facility] Comment on above: Performed By: #### T ROPN, HEMDF, LFT3, BMP3 #### [facility] [address] [place] [address] Urea nitrogen [Mass/Vol] 25 mg/dL High 7-20 [facility] Comment on above: Performed By: #### T ROPN, HEMDF, LFT3, BMP3 #### [facility] [address] [place] [address] Anion gap [Moles/Vol] 6 mmol/L Normal 3-13 [facility] Comment on above: Performed By: #### T ROPN, HEMDF, LFT3, BMP3 #### [facility] [address] [place] [address] CO2 [Moles/Vol] 27 mmol/L Normal 22-30 [facility] Comment on above: Performed By: #### T ROPN, HEMDF, LFT3, BMP3 #### [facility] [address] [place] [address] Creatinine [Mass/Vol] 1.43 mg/dL High 0.52-1.25 [facility] Comment on above: Performed By: #### T ROPN, HEMDF, LFT3, BMP3 #### [facility] [address] [place] [address] GFR/1.73 sq M.predicted among blacks MDRD (S/P/Bld) [Vol rate/Area] 63.5 mL/min/{1.73_m2} Normal >60 [facility] Comment on above: Performed By: #### T ROPN, HEMDF, LFT3, BMP3 #### [facility] [address] [place] [address] GFR/1.73 sq M.predicted among non-blacks MDRD (S/P/Bld) [Vol rate/Area] 54.8 mL/min/{1.73_m2} Abnormal >60 [facility] Comment on above: Result Comment: KDIG O guidelines provide the following GFR categories: Stage GFR(ml/min/1.73 m2) Terms G1 >=90 Normal or high G2 60-89 Mildly decreased* G3a 45-59 Mildly to moderately decreased G3b 30-44 Moderately to severely decreased G4 15-29 Severely decreased G5 <15 Kidney failure *Relative to young adult level. In the absence of evidence of kidney damage, neither GFR category G1 nor G2 fulfill the criteria for CKD. The CKD-EPI equation is validated in individuals 18 years of age and older. Currently the best equation for estimating glomerular filtration rate (GFR) from serum creatinine in children is the Bedside Rhodes equation. It is less accurate in patients with extremes of muscle mass, restriction of dietary protein, ingestion of creatine, extra-renal metabolism of creatinine, or treatment with medications that affect renal tubular creatinine secretion. Performed By: #### T ROPN, HEMDF, LFT3, BMP3 #### [facility] [address] [place] [address] Potassium [Moles/Vol] 4.0 mmol/L Normal 3.5-5.1 [facility] Comment on above: Performed By: #### T ROPN, HEMDF, LFT3, BMP3 #### [facility] [address] [place] [address] Sodium [Moles/Vol] 135 mmol/L Normal 135-145 [facility] Comment on above: Performed By: #### T ROPN, HEMDF, LFT3, BMP3 #### [facility] [address] [place] [address] Chloride [Moles/Vol] 102 mmol/L Normal 98-107 [facility] Comment on above: Performed By: #### T ROPN, HEMDF, LFT3, BMP3 #### [facility] [address] [place] [address] Basic Metabolic PanelOrdered By: Jane Gerber on 10-04-2020 Anion gap [Moles/Vol] 6 mmol/L 3 - 13 mmol/L [facility] Work Phone: Calcium [Mass/Vol] 9.1 mg/dL 8.4 - 10. 4 mg/dL [facility] Work Phone: Chloride [Moles/Vol] 102 mmol/L 98 - 10 7 mmol/L [facility] Work Phone: CO2 [Moles/Vol] 27 mmol/L 22 - 30 mmol/L [facility] Work Phone: Creatinine [Mass/Vol] 1.43 mg/dL High 0.52 - 1.25 mg/dL [facility] Work Phone: EGFR IF NonAfrican French 54.8 mL/min Abnormal >60 [facility] Work Phone: Comment on above: KDIGO guidelines pro vide the following GFR categories: Stage GFR(ml/min/1.73 m2) Terms G1 >=90 Normal or high G2 60-89 Mildly decreased* G3a 45-59 Mildly to moderately decreased G3b 30-44 Moderately to severely decreased G4 15-29 Severely decreased G5 <15 Kidney failure *Relative to young adult level. In the absence of evidence of kidney damage, neither GFR category G1 nor G2 fulfill the criteria for CKD. The CKD-EPI equation is validated in individuals 18 years of age and older. Currently the best equation for estimating glomerular filtration rate (GFR) from serum creatinine in children is the Bedside Rhodes equation. It is less accurate in patients with extremes of muscle mass, restriction of dietary protein, ingestion of creatine, extra-renal metabolism of creatinine, or treatment with medications that affect renal tubular creatinine secretion. GFR/1.73 sq M.predicted among blacks MDRD (S/P/Bld) [Vol rate/Area] 63.5 mL/min/{1.73_m2} >60 [facility] Work Phone: Glucose [Mass/Vol] 349 mg/dL High 70 - 100 mg/dL [facility] Work Phone: Interpretation and review of laboratory results Abnormal [facility] Work Phone: Potassium [Moles/Vol] 4.0 mmol/L 3.5 - 5.1 mmol/L [facility] Work Phone: Sodium [Moles/Vol] 135 mmol/L 135 - 145 mmol/L [facility] Work Phone: Urea nitrogen (BldV) [Mass/Vol] 25 mg/dL High 7 - 20 mg/dL [facility] Work Phone: CR Chest Portableon 10-05-19 21 CR Chest Portable Patient Name: CHITO GANDHI Diagnostic Radiology ACCESSION EXAM DATE/TIME PROCEDURE ORDERING PROVIDER [id number] 10/04/2020 14:52 EDT CR Chest Portable MD BUZZ, JANE Hopkins CPT code 02221 Reason For Exam (CR Chest Portable) chest pain, h/o lymphoma Report Portable chest 10/04/2020: Clinical Information: Chest pain. Findings: A single AP portable view of the chest was obtained at 1448 hours. Comparison was made to the prior study 01/10/2017. The trachea is midline. The heart is not enlarged. No focal areas of consolidation or volume loss are seen. There are no pleural effusions. The pulmonary vasculature does not appear congested. The visualized bony structures are intact. Impression: No acute process. Report Dictated on Final Dictating Physician: MD JIANG RISA Signed Date and Time: 10/04/2020 2:57 pm Signed by: MD JIANG RISA Transcribed Date and Time: 10/04/2020 2:58 [facility],Bedsideon 10-04-2020 Glucose [Mass/Vol] 317 mg/dL High 70-100 [facility] [employer] Comment on above: Result Comment: Test performed by glucose meter. Results may be 10%-15% lower than serum/plasma values. (CLIA ID [id number]) Performed By: #### T ROPN, CMP3 #### [facility] [address] [place] [address] Hemogram (CBC) w/Auto DiffOr dered By: Jane Gerber on 10-04-2020 Absolute Baso # 0.1 10*3/uL 0.0 - 0.2 10*3/uL [employer] Work Phone: [phone] Absolute Neut # 4.9 10*3/uL 1.8 - 7.0 10*3/uL [employer] Work Phone: [phone] Basophils/100 WBC (Bld) 0.9 % 0.0 - 2.0 % [employer] Work Phone: [phone] Eosinophils (Bld) [#/Vol] 0.2 10*3/uL 0.0 - 0.5 10*3/uL [employer] Work Phone: [phone] Eosinophils/100 WBC (Bld) 3.6 % 1.0 - 6.0 % [employer] Work Phone: [phone] Granulocytes/100 WBC (Bld) 73.7 % 40.0 - 80.0 % [employer] Work Phone: [phone] Hematocrit (Bld) [Volume fraction] 38.0 % Low 40.0 - 52.0 % [employer] Work Phone: [phone] Hemoglobin.gastroint estinal spec 1 Ql (Stl) 13.2 g/dL 13.0 - 18.0 g/dL [employer] Work Phone: [phone] Interpretation and review of laboratory results Abnormal [employer] Work Phone: [phone] Lymphocytes (Bld) [#/Vol] 1.0 10*3/uL 1.0 - 4.3 10*3/uL [employer] Work Phone: [phone] Lymphocytes/100 WBC (Bld) 14.4 % Low 20.0 - 40.0 % [employer] Work Phone: [phone] MCH (RBC) [Entitic mass] 29.1 pg 26.0 - 34.0 pg [employer] Work Phone: [phone] MCHC (RBC) [Mass/Vol] 34.7 % 32.0 - 36.0 % [employer] Work Phone: () 222 MCV (RBC) [Entitic vol] 83.9 fL 80.0 - 98.0 fL [employer] Work Phone: () 222 Monocytes (Bld) [#/Vol] 0.5 10*3/uL 0.0 - 0.8 10*3/uL [employer] Work Phone: [phone] Monocytes/100 WBC (Bld) 7.4 % 2.0 - 10.0 % [employer] Work Phone: () 222 Platelet distribution width (Bld) [Ratio] 14.8 % High 11.5 - 14.5 % [employer] Work Phone: () 222 Platelet mean volume (Bld) [Entitic vol] 6.4 fL Low 7.4 - 10.4 fL [employer] Work Phone: () 222 Platelets (Bld) [#/Vol] 143 10*3/uL 140 - 440 10*3/uL [employer] Work Phone: () 222 RBC (Bld) [#/Vol] 4.53 10*6/uL 4.40 - 5.9 0 10*6/uL [employer] Work Phone: () 222 WBC (Bld) [#/Vol] 6.6 10*3/uL 3.6 - 10.7 10*3/uL [employer] Work Phone: [phone] Test Performed by [facility], [facility] [address] , [place], [place] [address] [employer] Work Phone: [phone] [employer] Work Phone: [phone] Hemogram w/ Autodiffon 10-04 Abs Baso Cnt 0.1 10*3/uL Normal 0.0-0.2 [employer] Comment on above: Performed By: #### T ROPN, HEMDF, LFT3, BMP3 #### [facility] [address] [place] [address] Abs Neutrophile Cnt 4.9 10*3/uL Normal 1.8-7.0 [facility] Comment on above: Performed By: #### T ROPN, HEMDF, LFT3, BMP3 #### [facility] [address] [place] [address] Basophils/100 WBC (Bld) 0.9 % Normal 0.0-2.0 [facility] Comment on above: Performed By: #### T ROPN, HEMDF, LFT3, BMP3 #### [facility] [address] [place] [address] Eosinophils (Bld) [#/Vol] 0.2 10*3/uL Normal 0.0-0.5 [facility] Comment on above: Performed By: #### T ROPN, HEMDF, LFT3, BMP3 #### [facility] [address] [place] [address] Eosinophils/100 WBC (Bld) 3.6 % Normal 1.0-6.0 [facility] Comment on above: Performed By: #### T ROPN, HEMDF, LFT3, BMP3 #### [facility] [address] [place] [address] Erythrocyte distribution width (RBC) [Ratio] 14.8 % High 11.5-14.5 [facility] Comment on above: Performed By: #### T ROPN, HEMDF, LFT3, BMP3 #### [facility] [address] [place] [address] Granulocytes/100 WBC (Bld) 73.7 % Normal 40.0-80.0 [facility] Comment on above: Performed By: #### T ROPN, HEMDF, LFT3, BMP3 #### [facility] [address] [place] [address] Hematocrit (Bld) [Volume fraction] 38.0 % Low 40.0-52.0 [facility] Comment on above: Performed By: #### T ROPN, HEMDF, LFT3, BMP3 #### [facility] [address] [place] [address] Hemoglobin (Bld) [Mass/Vol] 13.2 g/dL Normal 13.0-18.0 [facility] Comment on above: Performed By: #### T ROPN, HEMDF, LFT3, BMP3 #### [facility] [address] [place] [address] Lymphocytes (Bld) [#/Vol] 1.0 10*3/uL Normal 1.0-4.3 [facility] Comment on above: Performed By: #### T ROPN, HEMDF, LFT3, BMP3 #### [facility] [address] [place] [address] Lymphocytes/100 WBC (Bld) 14.4 % Low 20.0-40.0 [facility] Comment on above: Performed By: #### T ROPN, HEMDF, LFT3, BMP3 #### [facility] [address] [place] [address] MCH (RBC) [Entitic mass] 29.1 pg Normal 26.0-34.0 [facility] Comment on above: Performed By: #### T ROPN, HEMDF, LFT3, BMP3 #### [facility] [address] [place] [address] MCHC 34.7 % Normal 32.0-36.0 [facility] Comment on above: Performed By: #### T ROPN, HEMDF, LFT3, BMP3 #### [facility] [address] [place] [address] MCV (RBC) [Entitic vol] 83.9 fL Normal 80.0-98.0 [facility] Comment on above: Performed By: #### T ROPN, HEMDF, LFT3, BMP3 #### [facility] [address] [place] [address] Monocytes (Bld) [#/Vol] 0.5 10*3/uL Normal 0.0-0.8 [facility] Comment on above: Performed By: #### T ROPN, HEMDF, LFT3, BMP3 #### [facility] [address] [place] [address] Monocytes/100 WBC (Bld) 7.4 % Normal 2.0-10.0 [facility] Comment on above: Performed By: #### T ROPN, HEMDF, LFT3, BMP3 #### [facility] [address] [place] [address] Platelet mean volume (Bld) [Entitic vol] 6.4 fL Low 7.4-10.4 [facility] Comment on above: Performed By: #### T ROPN, HEMDF, LFT3, BMP3 #### [facility] [address] [place] [address] Platelets (Bld) [#/Vol] 143 10*3/uL Normal 140-440 [facility] Comment on above: Performed By: #### T ROPN, HEMDF, LFT3, BMP3 #### [facility] [address] [place] [address] RBC (Bld) [#/Vol] 4.53 10*6/uL Normal 4.40-5.90 [facility] Comment on above: Performed By: #### T ROPN, HEMDF, LFT3, BMP3 #### [facility] [address] [place] [address] WBC (Bld) [#/Vol] 6.6 10*3/uL Normal 3.6-10.7 [facility] Comment on above: Performed By: #### T ROPN, HEMDF, LFT3, BMP3 #### [facility] [address] [place] [address] Hepatic Functionon 1 ALP [Catalytic activity/Vol] 114 U/L Normal 38-126 [facility] Comment on above: Performed By: #### T ROPN, HEMDF, LFT3, BMP3 #### [facility] [address] [place] [address] ALT [Catalytic activity/Vol] 27 U/L Normal 0-49 [facility] Comment on above: Result Comment: The ALT test is performed by an updated assay method. Please note that the reference intervals have been changed and are now sex specific. Performed By: #### T ROPN, HEMDF, LFT3, BMP3 #### [facility] [address] [place] [address] AST [Catalytic activity/Vol] 35 U/L Normal 15-46 [facility] Comment on above: Performed By: #### T ROPN, HEMDF, LFT3, BMP3 #### [facility] [address] [place] [address] Bilirubin [Mass/Vol] 0.4 mg/dL Normal 0.2-1.3 [facility] Comment on above: Performed By: #### T ROPN, HEMDF, LFT3, BMP3 #### [facility] [address] [place] [address] Bilirubin.indirect [Mass/Vol] 0.0 mg/dL Normal 0.0-0.3 [facility] Comment on above: Performed By: #### T ROPN, HEMDF, LFT3, BMP3 #### [facility] [address] [place] [address] Protein [Mass/Vol] 7.2 g/dL Normal 6.3-8.2 [facility] Comment on above: Performed By: #### T ROPN, HEMDF, LFT3, BMP3 #### [facility] [address] [place] [address] Albumin [Mass/Vol] 4.1 g/dL Normal 3.5-5.0 [facility] Comment on above: Performed By: #### T ROPN, HEMDF, LFT3, BMP3 #### [facility] [address] [place] [address] Hepatic Function PanelOrdere d By: Jane Gerber on 10-04-2020 Albumin [Mass/Vol] 4.1 g/dL 3.5 - 5.0 g/dL [facility] Work Phone: ALP (Bld) [Catalytic activity/Vol] 114 U/L 38 - 126 U/L [facility] Work Phone: ALT [Catalytic activity/Vol] 27 U/L 0 - 49 U/L [facility] Work Phone: 1 Comment on above: The ALT test is perf ormed by an updated assay method. Please note that the reference intervals have been changed and are now sex specific. AST [Catalytic activity/Vol] 35 U/L 15 - 46 U/L [facility] Work Phone: 1 Bilirubin [Mass/Vol] 0.4 mg/dL 0.2 - 1 .3 mg/dL [facility] Work Phone: Bilirubin.indirect [Mass/Vol] 0.0 mg/dL 0.0 - 0.3 mg/dL [facility] Work Phone: 1 Free PSA/Total PSA [Mass fraction] 7.2 g/dL 6.3 - 8.2 g/dL [facility] Work Phone: 1 No Panel InformationOrdered By: Jane Gerber on 10-04-2020 Test Performed by [facility], [address] , [place] [address] [facility] Work Phone: [facility] Work Phone: POCT GlucoseOrdered By: Dariel Gerber on 10-04-2020 Glucose [Mass/Vol] 317 mg/dL High 70 - 100 mg/dL [facility] Work Phone: Comment on above: Test performed by gl ucose meter. Results may be 10%-15% lower than serum/plasma values. (CLIA ID [id number]) Interpretation and review of laboratory results Abnormal [facility] Work Phone: Test Performed by [facility], [address] [place] [address] [facility] Work Phone: 1 [facility] Work Phone: 1 Troponin Ion 10-04-2020 Troponin I.cardiac [Mass/Vol] 0.013 ng/mL Normal 0.000-0.034 [facility] Comment on above: Result Comment: . Performed By: #### T ROPDot, CMP3 #### [facility] [address] [place] [address] Troponin [id number] By: Jane Gerber on 10-04-2020 Troponin I.cardiac [Mass/Vol] 0.013 ng/mL 0.000 - 0.034 ng/mL [facility] Work Phone: Comment on above: . Test Performed by [facility], [address] , [place], [place] [address] [facility] Work Phone: [facility] Work Phone: XR CHEST PORTABLEOrdered By: Jane Gerber on 10-04-2020 Patient Name: CHITO GANDHI Diagnostic Radiology ACCESSION EXAM DATE/TIME PROCEDURE ORDERING PROVIDER [id number] 10/04/2020 14:52 EDT CR Chest Portable MD GERBER DAVID C. CPT code 56471 Reason For Exam (CR Chest Portable) chest pain, h/o lymphoma Report Portable chest 10/04/2020: Clinical Information: Chest pain. Findings: A single AP portable view of the chest was obtained at 1448 hours. Comparison was made to the prior study 01/10/2017. The trachea is midline. The heart is not enlarged. No focal areas of consolidation or volume loss are seen. There are no pleural effusions. The pulmonary vasculature does not appear congested. The visualized bony structures are intact. Impression: No acute process. Report Dictated on --- Final --- Dictating Physician: MD JIANG RISA Signed Date and Time: 10/04/2020 2:57 pm Signed by: MD JIANG RISA Transcribed Date and Time: 10/04/2020 2:58 [facility] Work Phone: [facility], [facility] Incoming Radiology Results From [facility] - 10/04/2020 2:58 PM EDT Patient Name: CHITO WELLS Diagnostic Radiology ACCESSION EXAM DATE/TIME PROCEDURE ORDERING PROVIDER [id number] 10/04/2020 14:52 EDT CR Chest Portable MD GERBER DAVID C. CPT code 93306 Reason For Exam (CR Chest Portable) chest pain, h/o lymphoma Report Portable chest 10/04/2020: Clinical Information: Chest pain. Findings: A single AP portable view of the chest was obtained at 1448 hours. Comparison was made to the prior study 01/10/2017. The trachea is midline. The heart is not enlarged. No focal areas of consolidation or volume loss are seen. There are no pleural effusions. The pulmonary vasculature does not appear congested. The visualized bony structures are intact. Impression: No acute process. Report Dictated on --- Final --- Dictating Physician: MD JIANG RISA Signed Date and Time: 10/04/2020 2:57 pm Signed by: MD JIANG RISA Transcribed Date and Time: 10/04/2020 2:58 [facility] Work Phone: [facility] Work Phone: CR Spine Lumbosacral 2 or 3 Viewson 07-29-2020 CR Spine Lumbosacral 2 or 3 Views Patient Name: CHITO WELLS Diagnostic Radiology ACCESSION EXAM DATE/TIME PROCEDURE ORDERING PROVIDER [id number] 07/29/2020 16:30 EDT CR Spine Lumbosacral 2 MAUREEN FINCH MD, ABHAY L or 3 Views CPT code 03357 Reason For Exam (CR Spine Lumbosacral 2 or 3 Views) Previous back surgery, had a fall today, complains of lower lumbar pain, evaluate for fracture/hardware integrity Report LUMBAR SPINE 3 VIEWS CLINICAL INDICATION: Previous back surgery, had a fall today, complains of lower lumbar pain, evaluate for fracture/hardware integrity TECHNIQUE: 3 views of the lumbar spine. COMPARISON: None. FINDINGS: Apparent transitional lumbosacral anatomy and small, vestigial ribs at designated L1 level. Postsurgical change, including laminotomy/laminectomy defects in L3-S1 levels, with hyperostotic change in the lumbosacral junction. Possible partial bony ankylosis or fusion in L1-L2 level. No acute loss of height or gross malalignment of vertebral bodies. No osseous destruction. Marked disc space narrowing and variable endplate degenerative change in L4-S1 levels. Less severe degenerative change in the upper lumbar spine. Diffuse facet sclerosis/arthrosis. Paraspinal soft tissues grossly unremarkable. Surgical clips project over the right upper quadrant. IMPRESSION: 1. No acute osseous abnormality. 2. Postsurgical change and diffuse degenerative spondylosis. Report Dictated on Final Dictating Physician: MD CRONIN WENDELL Signed Date and Time: 07/29/2020 5:10 pm Signed by: MD CRONIN WENDELL Transcribed Date and Time: 07/29/2020 5:11 [address] [facility] [address] Head or Brain w/o Contras ton 07-29-2020 CT Head or Brain w/o Contrast Patient Name: CHITO WELLS Computed Tomography ACCESSION EXAM DATE/TIME PROCEDURE ORDERING PROVIDER [id number] 07/29/2020 16:[address] Head or Brain w/o MAUREEN FINCH MD, DONALD L Contrast CPT code 76739 Reason For Exam (CT Head or Brain w/o Contrast) fall, on aspirin, eval for ICH Report CT BRAIN WITHOUT CONTRAST CLINICAL INDICATION: fall, on aspirin, eval for ICH TECHNIQUE: CT scan of the brain without IV contrast. Multiplanar reformations. COMPARISON: December,. FINDINGS: No apparent mass or mass effect, hemorrhage, midline shift or hydrocephalus. No evidence of acute cortical infarct. No abnormal, extra-axial fluid or air collection. Mild, patchy low density in the periventricular and subcortical white matter is nonspecific, but may relate to chronic small vessel ischemic change. Possible prominent perivascular space or old lacune(s) again noted in the right basal ganglia. Mild, diffuse volume loss. Osseous calvarium grossly intact. IMPRESSION: 1. No acute intracranial findings. 2. Chronic ischemic and atrophic changes. Report Dictated on Final Dictating Physician: MD CRONIN WENDELL Signed Date and Time: 07/29/2020 5:04 pm Signed by: MD CRONIN WENDELL Transcribed Date and Time: 07/29/2020 5:05 Normal [facility] Comp Metabolic Panelon 07-29 ALP [Catalytic activity/Vol] 116 U/L Normal 38-126 [facility] Comment on above: Performed By: #### T LAYNE, CMP3 #### [facility] [address] [place] [address] ALT [Catalytic activity/Vol] 25 U/L Normal 0-49 [facility] Comment on above: Result Comment: The ALT test is performed by an updated assay method. Please note that the reference intervals have been changed and are now sex specific. Performed By: #### Audrey TILLMAN CMP3 #### [facility] [address] [place] [address] Anion gap [Moles/Vol] 7 mmol/L Normal 3-13 [facility] Comment on above: Performed By: #### Audrey TILLMAN CMP3 #### [facility] [address] [place] [address] AST [Catalytic activity/Vol] 25 U/L Normal 15-46 [facility] Comment on above: Performed By: #### Audrey TILLMAN CMP3 #### [facility] [address] [place] [address] Bilirubin [Mass/Vol] 0.3 mg/dL Normal 0.2-1.3 [facility] Comment on above: Performed By: #### Audrey TILLMAN CMP3 #### [facility] [address] [place] [address] Calcium [Mass/Vol] 8.8 mg/dL Normal 8.4-10.4 [facility] Comment on above: Performed By: #### Audrey TILLMAN CMP3 #### [facility] [address] [place] [address] CO2 [Moles/Vol] 29 mmol/L Normal 22-30 [facility] Comment on above: Performed By: #### Audrey TILLMAN CMP3 #### [facility] [address] [place] [address] Glucose [Mass/Vol] 389 mg/dL High 70-100 [facility] Comment on above: Performed By: #### Audrey TILLMAN CMP3 #### [facility] [address] [place] [address] Protein [Mass/Vol] 7.2 g/dL Normal 6.3-8.2 [facility] Comment on above: Performed By: #### Audrey TILLMAN CMP3 #### [facility] [address] [place] [address] Urea nitrogen [Mass/Vol] 29 mg/dL High 7-20 [facility] Comment on above: Performed By: #### Audrey TILLMAN CMP3 #### [facility] [address] [place] [address] Creatinine [Mass/Vol] 1.93 mg/dL High 0.52-1.25 [facility] Comment on above: Performed By: #### Audrey TILLMAN CMP3 #### [facility] [address] [place] [address] GFR/1.73 sq M.predicted among blacks MDRD (S/P/Bld) [Vol rate/Area] 44.3 mL/min/{1.73_m2} Abnormal >60 [facility] Comment on above: Performed By: #### Audrey TILLMAN CMP3 #### [facility] [address] [place] [address] GFR/1.73 sq M.predicted among non-blacks MDRD (S/P/Bld) [Vol rate/Area] 38.2 mL/min/{1.73_m2} Abnormal >60 [facility] Comment on above: Result Comment: KDIG O guidelines provide the following GFR categories: Stage GFR(ml/min/1.73 m2) Terms G1 >=90 Normal or high G2 60-89 Mildly decreased* G3a 45-59 Mildly to moderately decreased G3b 30-44 Moderately to severely decreased G4 15-29 Severely decreased G5 <15 Kidney failure *Relative to young adult level. In the absence of evidence of kidney damage, neither GFR category G1 nor G2 fulfill the criteria for CKD. The CKD-EPI equation is validated in individuals 18 years of age and older. Currently the best equation for estimating glomerular filtration rate (GFR) from serum creatinine in children is the Bedside Rhodes equation. It is less accurate in patients with extremes of muscle mass, restriction of dietary protein, ingestion of creatine, extra-renal metabolism of creatinine, or treatment with medications that affect renal tubular creatinine secretion. Performed By: #### Audrey TILLMAN CMP3 #### [facility] [address] [place] [address] Albumin [Mass/Vol] 4.0 g/dL Normal 3.5-5.0 [facility] Comment on above: Performed By: #### Audrey TILLMAN CMP3 #### [facility] [address] [place] [address] Chloride [Moles/Vol] 99 mmol/L Normal 98-107 [facility] Comment on above: Performed By: #### Audrey TILLMAN CMP3 #### [facility] [address] [place] [address] Potassium [Moles/Vol] 4.5 mmol/L Normal 3.5-5.1 [facility] Comment on above: Performed By: #### Audrey TILLMAN CMP3 #### [facility] [address] [place] [address] Sodium [Moles/Vol] 136 mmol/L Normal 135-145 [facility] Comment on above: Performed By: #### Audrey TILLMAN CMP3 #### [facility] [address] [place] [address] Hemogram w/ Autodiffon 07-29 Abs Baso Cnt 0.1 10*3/uL Normal 0.0-0.2 [facility] Comment on above: Performed By: #### H EMDF #### [facility] [address] [place] [address] Abs Neutrophile Cnt 5.0 10*3/uL Normal 1.8-7.0 [facility] Comment on above: Performed By: #### H EMDF #### [facility] [address] [place] [address] Basophils/100 WBC (Bld) 1.3 % Normal 0.0-2.0 [facility] Comment on above: Performed By: #### H EMDF #### [facility] [address] [place] [address] Eosinophils (Bld) [#/Vol] 0.3 10*3/uL Normal 0.0-0.5 [facility] Comment on above: Performed By: #### H EMDF #### [facility] [address] [place] [address] Eosinophils/100 WBC (Bld) 4.1 % Normal 1.0-6.0 [facility] Comment on above: Performed By: #### H EMDF #### [facility] [address] [place] [address] Erythrocyte distribution width (RBC) [Ratio] 14.3 % Normal 11.5-14.5 [facility] Comment on above: Performed By: #### H EMDF #### [facility] [address] [place] [address] Granulocytes/100 WBC (Bld) 69.7 % Normal 40.0-80.0 [facility] Comment on above: Performed By: #### H EMDF #### [facility] [address] [place] [address] Hematocrit (Bld) [Volume fraction] 36.2 % Low 40.0-52.0 [facility] Comment on above: Performed By: #### H EMDF #### [facility] [address] [place] [address] Hemoglobin (Bld) [Mass/Vol] 12.3 g/dL Low 13.0-18.0 [facility] Comment on above: Performed By: #### H EMDF #### [facility] [address] [place] [address] Lymphocytes (Bld) [#/Vol] 1.2 10*3/uL Normal 1.0-4.3 [facility] Comment on above: Performed By: #### H EMDF #### [facility] [address] [place] [address] Lymphocytes/100 WBC (Bld) 17.1 % Low 20.0-40.0 [facility] Comment on above: Performed By: #### H EMDF #### [facility] [address] [place] [address] MCH (RBC) [Entitic mass] 29.0 pg Normal 26.0-34.0 [facility] Comment on above: Performed By: #### H EMDF #### [facility] [address] [place] [address] MCHC 33.9 % Normal 32.0-36.0 [facility] Comment on above: Performed By: #### H EMDF #### [facility] [address] [place] [address] MCV (RBC) [Entitic vol] 85.7 fL Normal 80.0-98.0 [facility] Comment on above: Performed By: #### H EMDF #### [facility] [address] [place] [address] Monocytes (Bld) [#/Vol] 0.6 10*3/uL Normal 0.0-0.8 [facility] Comment on above: Performed By: #### H EMDF #### [facility] [address] [place] [address] Monocytes/100 WBC (Bld) 7.8 % Normal 2.0-10.0 [facility] Comment on above: Performed By: #### H EMDF #### [facility] [address] [place] [address] Platelet mean volume (Bld) [Entitic vol] 7.1 fL Low 7.4-10.4 [facility] Comment on above: Performed By: #### H EMDF #### [facility] [address] [place] [address] Platelets (Bld) [#/Vol] 170 10*3/uL Normal 140-440 [facility] Comment on above: Performed By: #### H EMDF #### [facility] [address] [place] [address] RBC (Bld) [#/Vol] 4.22 10*6/uL Low 4.40-5.90 [facility] Comment on above: Performed By: #### H EMDF #### [facility] [address] [place] [address] WBC (Bld) [#/Vol] 7.2 10*3/uL Normal 3.6-10.7 [facility] Comment on above: Performed By: #### H EMDF #### [facility] [address] [place] [address] Troponin Ion 07-29-2020 Troponin I.cardiac [Mass/Vol] 0.013 ng/mL Normal 0.000-0.034 [facility] Comment on above: Result Comment: . Performed By: #### T LAYNE, [facility] #### [facility] [address] [place] [address] Isela 04-29-2020 CNPN Telephone (CNFV) CHITO WELLS ([id number]) 1965 M Date Time Provider Department 04/29/20 KATIA LAMAR (RN) [facility] During your visit today, we recorded the following information about you: Katia Lamar RN, RN 04/29/2020 2:37 PM Signed Referral received from [facility] requesting a palliative consult for pt. Stated pt has chronic pain 2/2 spinal stenosis. Collaborated with Tommy Reeder CNP. Palliative Medicine RNCC explained to referral source that Palliative Medicine does not manage chronic pain and recommended pt be referred to [facility] [phone]. Referral to Palliative Medicine has been closed. Allergies As of Date: 04/29/2020 Noted Allergy Reaction BLEACH (SODIUM HYPOCHLORITE) 07/26/2019 2 - Rash HALDOL (HALOPERIDOL LACTATE) 08/07/2017 1 - Mental Status Change TYLENOL (ACETAMINOPHEN) 10/19/2019 14 - Other: See Comments VICODIN (HYDROCODONE-ACETAMINOPHE* 11 - Vomiting Comments: tolerates Date Reviewed: 10/19/2019 Reviewed by: Angie (Rn) JERROD Dial - Fully Assessed Reason for Visit: Initial Consult [875] Cmt: [facility] [address] Prescriptions as of 04/29/2020 Sig: ASPIRIN 81 MG TABLET,DELAYED * Take 81 mg by mouth once rosaline* DOCUSATE SODIUM 100 MG CAPSULE Take 100 mg by mouth once fransisco* INSULIN SYRINGE U-100 WITH NE* Use as directed with Novolog PANTOPRAZOLE 40 MG TABLET,DEL* Take 40 mg by mouth once rosaline* ROSUVASTATIN 10 MG TABLET Take 10 mg by mouth once rosaline* ASCORBIC ACID (VITAMIN C) 250* Take 250 mg by mouth once fransisco* BD AUTOSHIELD DUO PEN NEEDLE * MUCINEX 600 MG TABLET, EXTEND* Take 1,200 mg by mouth once d* CHOLECALCIFEROL (VITAMIN D3) * Take 2,000 Units by mouth onc* SERTRALINE 50 MG TABLET Take 75 mg by mouth once rosaline* FAMOTIDINE 40 MG TABLET Take 40 mg by mouth once rosaline* CLONIDINE HCL 0.2 MG TABLET Take 0.2 mg by mouth three ti* DOXYCYCLINE HYCLATE 100 MG CA* Take 100 mg by mouth twice da* FENOFIBRATE 160 MG TABLET Take 160 mg by mouth. FERROUS SULFATE 325 MG (65 MG* Take 325 mg by mouth twice da* TRAZODONE 50 MG TABLET Take 275 mg by mouth daily at* FLUTICASONE PROPIONATE 50 MCG* Use 1 [employer] in the nose. AMLODIPINE 10 MG TABLET Take 10 mg by mouth once rosaline* HYDROCORTISONE 1 % TOPICAL CR* Apply to affected area twice * ACETAMINOPHEN 500 MG TABLET Take 1,000 mg by mouth every * CYCLOBENZAPRINE ORAL Take 10 mg by mouth three valdo* HYDROXYZINE HCL 25 MG TABLET Take 25 mg by mouth three valdo* ONDANSETRON HCL 4 MG TABLET Take 4 mg by mouth every 6 ho* ISOSORBIDE MONONITRATE ER 30 * Take 60 mg by mouth once rosaline* COREG ORAL Take 37.5 mg by mouth twice d* SPIRONOLACTONE 25 MG TABLET Take 25 mg by mouth twice fransisco* NOVOLOG MIX 70-30 SUBCUTANEOUS Inject 100 Units subcutaneous* NOVOLOG FLEXPEN U-100 INSULIN* Inject 25 Units subcutaneousl* HYDRALAZINE 100 MG TABLET Take 1 tablet by mouth three * FLOMAX 0.4 MG CAPSULE Take 0.8 mg by mouth once fransisco* GABAPENTIN 400 MG CAPSULE Take 400 mg by mouth four valdo* LEVETIRACETAM 250 MG TABLET Take 500 mg by mouth twice da* Problem List As Of Date 04/29/2020 Noted Resolved HYPERTENSION NOS [I10] 11/30/2007 More... 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]11/30/2007 12/03/2007 HYPERLIPIDEMIA NEC/NOS [E78.5] 11/30/2007 CERVICAL SPINAL STENOSIS [M48.02] 11/30/2007 ESOPHAGEAL REFLUX [K21.9] 11/30/2007 CHEST PAIN NOS [R07.9] 11/30/2007 DENTAL DISORDER NOS [K08.9] 11/30/2007 DIABETES MELLITUS TYPE II UNCONTR UNCOMPL [IMO0*12/03/2007 Lower back pain [M54.5] 08/07/2017 Obesity, Class III, BMI >= 40 [E66.01] 08/08/2017 Myocardial infarct (HCC) [I21.9] 04/12/2019 Mild protein-calorie malnutrition (HCC) [E44.1] 04/15/2019 Drug-seeking behavior [Z76.5] 04/17/2019 Encounter Status:Closed by KATIA LAMAR on 04/29/20 [facility] [address] Abdomen Pelvis Wo Gulshan ton 12-27-2019 Patient Name: CHITO GANDHI ---CT--- Exam Date/Time 12/27/2019 09:00:[address] Abdomen/Pelvis (No PO, No IV) Ordering Physician MD KERRIE, HANSEL Accession Number [id number] CPT4 Codes 50873 (CT Abdomen/Pelvis (No PO, No IV)) 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 Images were reformatted in coronal and sagittal projections. FINDINGS: Lung bases: Linear atelectasis left lung base. Small sliding-type hiatal hernia. Major organs: The liver, spleen, pancreas, kidneys, and adrenal glands are normal. The patient is status post a cholecystectomy. Bowel: The bowel is of normal caliber throughout without evidence of wall thickening or obstruction. The appendix is normal Lymph nodes and Mesentery: No enlarged intra-abdominal lymph nodes or free fluid. Mesentery is normal with no free air. Vasculature: The abdominal aorta is normal in caliber without evidence of aneurysmal dilatation. Mild scattered atherosclerotic calcifications Soft tissues and Osseous structures: Severe multilevel degenerative changes of the lumbar spine. The patient is status post prior laminectomy of L2-L5. Pelvis: Major organs: The rectum, sigmoid colon, and bladder are normal. Lymph nodes: No enlarged intrapelvic lymph nodes or free fluid. Soft tissues and Osseous structures: No acute fracture. No suspicious osseous lesions. IMPRESSION: ABDOMEN: No intra-abdominal lymphadenopathy. PELVIS: No intrapelvic lymphadenopathy. 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 Images were reformatted in coronal and sagittal projections. FINDINGS: Lung bases: Linear atelectasis left lung base. Small sliding-type hiatal hernia. Major organs: The liver, spleen, pancreas, kidneys, and adrenal glands are normal. The patient is status post a cholecystectomy. Bowel: The bowel is of normal caliber throughout without evidence of wall thickening or obstruction. The appendix is normal Lymph nodes and Mesentery: No enlarged intra-abdominal lymph nodes or free fluid. Mesentery is normal with no free air. Vasculature: The abdominal aorta is normal in caliber without evidence of aneurysmal dilatation. Mild scattered atherosclerotic calcifications Soft tissues and Osseous structures: Severe multilevel degenerative changes of the lumbar spine. The patient is status post prior laminectomy of L2-L5. Pelvis: Major organs: The rectum, sigmoid colon, and bladder are normal. Lymph nodes: No enlarged intrapelvic lymph nodes or free fluid. Soft tissues and Osseous structures: No acute fracture. No suspicious osseous lesions. IMPRESSION: ABDOMEN: No intra-abdominal lymphadenopathy. PELVIS: No intrapelvic lymphadenopathy. Report Dictated on Workstation: [place] [employer] companyTESTDS --- Final --- Dictated: 12/27/2019 2:29 pm Dictating Physician: MD ANNE, BUSHRA BAKER Signed Date and Time: 12/27/2019 2:36 pm Signed by: MD RODRÍGUEZ YUN ROBERT Transcribed Date and Time: 12/27/2019 2:29 [place], [place] CT CHEST WO CONTRASTon 12-26 Patient Name: CHITO GANDHI ---CT--- Exam Date/Time 12/27/2019 09:58:[address] Chest w/o Contrast Ordering Physician MD KERRIE, HANSEL Accession Number [id number] CPT4 Codes 28696 (CT Chest w/o Contrast) Reason For Exam HODGKINS LYMPHOMA LOOKIN FOR LYMPH NODES Report CLINICAL HISTORY: Hodgkin's lymphoma. COMPARISON: None Technique: [address] images were obtained of the chest without the use of intravenous contrast. Images were reformatted in coronal and sagittal projections. FINDINGS: Lungs: Mild linear atelectasis left lung base. The lungs are otherwise clear with no suspicious pulmonary nodules or masses. No areas of consolidation. The tracheobronchial tree remains patent. Pleura: No pleural effusion Heart/Great vessels: Normal heart size with no pericardial effusion. The aorta and pulmonary arteries are normal in caliber. Mediastinum/Klaus: There are numerous prominent mediastinal lymph nodes. None of these exceed 1 cm in short axis. An index right paratracheal lymph node measures 9 mm in short axis (2:24). No hilar or axillary lymphadenopathy is present. Thyroid and Esophagus: Visualized thyroid is normal. The esophagus is dilated with circumferential wall thickening. A small sliding-type hiatal hernia is present. Visualized Upper Abdomen: Normal Chest wall/Lower neck: Normal Bones: Normal IMPRESSION: Multiple prominent but nonenlarged mediastinal lymph nodes measuring up to 9 mm in short axis. Dilated esophagus with circumferential wall thickening. This can be seen with esophagitis however malignancy is also in the differential. Other considerations are achalasia or scleroderma. Clinical correlation is needed. Endoscopy may be helpful for further evaluation. Report Dictated on Workstation: [id number] --- Final --- Dictated: 12/27/2019 2:36 pm Dictating Physician: MD ANNE, BUSHRA BAKER Signed Date and Time: 12/27/2019 2:45 pm Signed by: MD ANNE, BUSHRA BAKER Transcribed Date and Time: 12/27/2019 2:36 [facility] [place], [place] 2:46 PM EDT Patient Name: CHITO WELLS ---CT--- Exam Date/Time 12/27/2019 09:58:[address] Chest w/o Contrast Ordering Physician MD KERRIE, HANSEL Accession Number [id number] CPT4 Codes 16157 (CT Chest w/o Contrast) Reason For Exam HODGKINS LYMPHOMA LOOKIN FOR LYMPH NODES Report CLINICAL HISTORY: Hodgkin's lymphoma. COMPARISON: None Technique: [address] images were obtained of the chest without the use of intravenous contrast. Images were reformatted in coronal and sagittal projections. FINDINGS: Lungs: Mild linear atelectasis left lung base. The lungs are otherwise clear with no suspicious pulmonary nodules or masses. No areas of consolidation. The tracheobronchial tree remains patent. Pleura: No pleural effusion Heart/Great vessels: Normal heart size with no pericardial effusion. The aorta and pulmonary arteries are normal in caliber. Mediastinum/Klaus: There are numerous prominent mediastinal lymph nodes. None of these exceed 1 cm in short axis. An index right paratracheal lymph node measures 9 mm in short axis (2:24). No hilar or axillary lymphadenopathy is present. Thyroid and Esophagus: Visualized thyroid is normal. The esophagus is dilated with circumferential wall thickening. A small sliding-type hiatal hernia is present. Visualized Upper Abdomen: Normal Chest wall/Lower neck: Normal Bones: Normal IMPRESSION: Multiple prominent but nonenlarged mediastinal lymph nodes measuring up to 9 mm in short axis. Dilated esophagus with circumferential wall thickening. This can be seen with esophagitis however malignancy is also in the differential. Other considerations are achalasia or scleroderma. Clinical correlation is needed. Endoscopy may be helpful for further evaluation. Report Dictated on Workstation: [place] [employer] --- Final --- Dictated: 12/27/2019 2:36 pm Dictating Physician: MD ANNE, BUSHRA BAKER Signed Date and Time: 12/27/2019 2:45 pm Signed by: MD RODRÍGUEZ YUN ROBERT Transcribed Date and Time: 12/27/2019 2:36 [place], [place] Glucose,Bedsideon 11-06-2019 Glucose [Mass/Vol] 209 mg/dL High 70-100 [facility] Comment on above: Result Comment: Test performed by glucose meter. Results may be 10%-15% lower than serum/plasma values. (CLIA ID [id number]) Performed By: #### B GLU ####[address] [address] Glucose [Mass/Vol] 93 mg/dL Normal 70-100 [facility] Comment on above: Result Comment: Test performed by glucose meter. Results may be 10%-15% lower than serum/plasma values. (CLIA ID [id number]) Performed By: #### B GLU ####[address] [address] POCT Glucoseon 11-06-2019 Glucose [Mass/Vol] 209 mg/dL High 70 - 100 mg/dL [place] Comment on above: Test performed by gl ucose meter. Results may be 10%-15% lower than serum/plasma values. (CLIA ID [id number]) Interpretation and review of laboratory results Abnormal [place], [place] Test Performed by [facility], [address] [place] [address] [place], [place] COVID-19on 11-05-2019 SARS-CoV-2 Not Detected Expected Result: Not Detected _ Real-time, RT-PCR performed on the [employer] Vision System by the [facility]. Negative results do not preclude SARS-CoV-2 infection and should not be used as the sole basis for treatment or other patient management decisions. This assay was developed by [employer] and [employer] and distributed under an Emergency Use Authorization (EUA) granted by the FDA for the qualitative detection of SARS-CoV-2 nucleic acid. Results were determined from a pool consisting of specimens from additional patients. This test was modified, and its performance characteristics, showing minimal loss of sensitivity, have been validated by the [facility]. Approval is pending review by the U. S. Food and Drug Administration. If symptoms are severe and persist, testing a new specimen may be warranted. Additionally, IgG testing may be considered for patients more than 7-10 days post onset of symptoms. [place], [place] Test Performed by [facility], [place] [address] Specimen Source Comment:Nasopharyngeal Swab [place], [place] Glucose,Bedsideon 11-05-2019 Glucose [Mass/Vol] 254 mg/dL High 70-100 [facility] Comment on above: Result Comment: Test performed by glucose meter. Results may be 10%-15% lower than serum/plasma values. (CLIA ID [id number]) Performed By: #### B GLU ####[address] [address] Glucose [Mass/Vol] 276 mg/dL High 70-100 [facility] Comment on above: Result Comment: Test performed by glucose meter. Results may be 10%-15% lower than serum/plasma values. (CLIA ID [id number]) Performed By: #### B GLU ####[facility] [address] [address] Glucose [Mass/Vol] 193 mg/dL High 70-100 [facility] Comment on above: Result Comment: Test performed by glucose meter. Results may be 10%-15% lower than serum/plasma values. (CLIA ID [id number]) Performed By: #### B GLU ####[address] [place] [address] Glucose [Mass/Vol] 89 mg/dL Normal 70-100 [facility] Comment on above: Result Comment: Test performed by glucose meter. Results may be 10%-15% lower than serum/plasma values. (CLIA ID [id number]) Performed By: #### B GLU ####[address] [place] [address] [id number] 11-05-2019 SARS-CoV-2 SARS-CoV-2 --> Statu s: F Not Detected Expected Result: Not Detected _ Real-time, RT-PCR performed on the BD MAX System by the [facility]. Negative results do not preclude SARS-CoV-2 infection and should not be used as the sole basis for treatment or other patient management decisions. This assay was developed by [employer] and distributed under an Emergency Use Authorization (EUA) granted by the FDA for the qualitative detection of SARS-CoV-2 nucleic acid. Results were determined from a pool consisting of specimens from additional patients. This test was modified, and its performance characteristics, showing minimal loss of sensitivity, have been validated by the [facility]. Approval is pending review by the U. S. Food and Drug Administration. If symptoms are severe and persist, testing a new specimen may be warranted. Additionally, IgG testing may be considered for patients more than 7-10 days post onset of symptoms. Expected Result: Not Detected _ Real-time, RT-PCR performed on the [employer] MAX System by the [facility]. Negative results do not preclude SARS-CoV-2 infection and should not be used as the sole basis for treatment or other patient management decisions. This assay was developed by [employer] and distributed under an Emergency Use Authorization (EUA) granted by the FDA for the qualitative detection of SARS-CoV-2 nucleic acid. Results were determined from a pool consisting of specimens from additional patients. This test was modified, and its performance characteristics, showing minimal loss of sensitivity, have been validated by the [facility]. Approval is pending review by the U. S. Food and Drug Administration. If symptoms are severe and persist, testing a new specimen may be warranted. Additionally, IgG testing may be considered for patients more than 7-10 days post onset of symptoms. Normal [facility] Comment on above: Order Comment: Speci men Source Comment:Nasopharyngeal Swab Performed By: #### C OVID ####[facility] [id number] [place] [address] Glucose,Bedsideon 11-04-2019 Glucose [Mass/Vol] 219 mg/dL High 70-100 [facility] Comment on above: Result Comment: Test performed by glucose meter. Results may be 10%-15% lower than serum/plasma values. (CLIA ID [id number]) Performed By: #### B GLU ####[address] [address] Glucose [Mass/Vol] 213 mg/dL High 70-100 [facility] Comment on above: Result Comment: Test performed by glucose meter. Results may be 10%-15% lower than serum/plasma values. (CLIA ID [id number]) Performed By: #### B GLU ####[address] [address] Glucose [Mass/Vol] 260 mg/dL High 70-100 [facility] Comment on above: Result Comment: Test performed by glucose meter. Results may be 10%-15% lower than serum/plasma values. (CLIA ID [id number]) Performed By: #### B GLU ####[address] [address] Glucose [Mass/Vol] 155 mg/dL High 70-100 [facility] Comment on above: Result Comment: Test performed by glucose meter. Results may be 10%-15% lower than serum/plasma values. (CLIA ID [id number]) Performed By: #### B GLU ####[address] [address] Basic Metabolic Panelon 10-18 Anion gap [Moles/Vol] 7 Normal [facility] Comment on above: Performed By: #### H EMDF, ETOH4, BMP3, PT/AP, LFT3, CUA2, DRGA4 #### [facility] [address] [place] [address] Calcium [Mass/Vol] 9.4 mg/dL Normal 8.4-10.4 [facility] Comment on above: Performed By: #### H EMDF, ETOH4, BMP3, PT/AP, LFT3, CUA2, DRGA4 #### [facility] [address] [place] [address] Chloride [Moles/Vol] 98 mmol/L Normal 98-107 [facility] Comment on above: Performed By: #### H EMDF, ETOH4, BMP3, PT/AP, LFT3, CUA2, DRGA4 #### [facility] [address] [place], [place] CO2 [Moles/Vol] 33 mmol/L High 22-30 [facility] Comment on above: Performed By: #### H EMDF, ETOH4, BMP3, PT/AP, LFT3, CUA2, DRGA4 #### [facility] [address] [place], [place] Creatinine [Mass/Vol] 1.84 mg/dL High 0.52-1.25 [facility] Comment on above: Performed By: #### H EMDF, ETOH4, BMP3, PT/AP, LFT3, CUA2, DRGA4 #### [address] GFR/1.73 sq M predicted among blacks MDRD (S/P/Bld) [Vol rate/Area] 47.1 mL/min/{1.73_m2} Abnormal >60 [facility] Comment on above: Performed By: #### H EMDF, ETOH4, BMP3, PT/AP, LFT3, CUA2, DRGA4 #### [facility] [address] [place], [place] GFR/1.73 sq M predicted among non-blacks MDRD (S/P/Bld) [Vol rate/Area] 40.7 mL/min/{1.73_m2} Abnormal >60 [facility] Comment on above: Result Comment: KDIG O guidelines provide the following GFR categories: Stage GFR(ml/min/1.73 m2) Terms G1 >=90 Normal or high G2 60-89 Mildly decreased* G3a 45-59 Mildly to moderately decreased G3b 30-44 Moderately to severely decreased G4 15-29 Severely decreased G5 <15 Kidney failure *Relative to young adult level. In the absence of evidence of kidney damage, neither GFR category G1 nor G2 fulfill the criteria for CKD. The CKD-EPI equation is validated in individuals 18 years of age and older. Currently the best equation for estimating glomerular filtration rate (GFR) from serum creatinine in children is the Bedside Rhodes equation. It is less accurate in patients with extremes of muscle mass, restriction of dietary protein, ingestion of creatine, extra-renal metabolism of creatinine, or treatment with medications that affect renal tubular creatinine secretion. Performed By: #### H EMDF, ETOH4, BMP3, PT/AP, LFT3, CUA2, DRGA4 #### [facility] [address] [place], [place] Glucose [Mass/Vol] 117 mg/dL High 70-100 [facility] Comment on above: Performed By: #### H EMDF, ETOH4, BMP3, PT/AP, LFT3, CUA2, DRGA4 #### [address] [place] [place], [place] Potassium [Moles/Vol] 2.9 mmol/L Low 3.5-5.1 [facility] Comment on above: Performed By: #### H EMDF, ETOH4, BMP3, PT/AP, LFT3, CUA2, DRGA4 #### [address] [place], [place] Sodium [Moles/Vol] 139 mmol/L Normal 135-145 [facility] Comment on above: Performed By: #### H EMDF, ETOH4, BMP3, PT/AP, LFT3, CUA2, DRGA4 #### [address] [address] [place], [place] Urea nitrogen [Mass/Vol] 32 mg/dL High 7-20 [facility] Comment on above: Performed By: #### H EMDF, ETOH4, BMP3, PT/AP, LFT3, CUA2, DRGA4 #### [address] [place], [place] Anion gap [Moles/Vol] 7 mmol/L [place] Calcium [Mass/Vol] 9.4 mg/dL 8.4 - 10. 4 mg/dL [place] Chloride [Moles/Vol] 98 mmol/L 98 - 10 7 mmol/L [place] CO2 [Moles/Vol] 33 mmol/L High 22 - 30 mmol/L [place] Creatinine [Mass/Vol] 1.84 mg/dL High 0.52 - 1.25 mg/dL [place] EGFR IF NonAfrican French 40.7 mL/min Abnormal >60 [place] Comment on above: KDIGO guidelines pro vide the following GFR categories: Stage GFR(ml/min/1.73 m2) Terms G1 >=90 Normal or high G2 60-89 Mildly decreased* G3a 45-59 Mildly to moderately decreased G3b 30-44 Moderately to severely decreased G4 15-29 Severely decreased G5 <15 Kidney failure *Relative to young adult level. In the absence of evidence of kidney damage, neither GFR category G1 nor G2 fulfill the criteria for CKD. The CKD-EPI equation is validated in individuals 18 years of age and older. Currently the best equation for estimating glomerular filtration rate (GFR) from serum creatinine in children is the Bedside Rhodes equation. It is less accurate in patients with extremes of muscle mass, restriction of dietary protein, ingestion of creatine, extra-renal metabolism of creatinine, or treatment with medications that affect renal tubular creatinine secretion. GFR/1.73 sq M predicted among blacks MDRD (S/P/Bld) [Vol rate/Area] 47.1 mL/min/{1.73_m2} Abnormal >60 [place] Glucose [Mass/Vol] 117 mg/dL High 70 - 100 mg/dL [place] Interpretation and review of laboratory results Abnormal [place] Potassium [Moles/Vol] 2.9 mmol/L Low 3.5 - 5.1 mmol/L [place] Sodium [Moles/Vol] 139 mmol/L 135 - 145 mmol/L [place] Urea nitrogen [Mass/Vol] 32 mg/dL High 7 - 20 mg/dL [place] Test Performed by [id number] [place] [address] Glucose,Bedsideon 11-03-2019 Glucose [Mass/Vol] 280 mg/dL High 70-100 [facility] Comment on above: Result Comment: Test performed by glucose meter. Results may be 10%-15% lower than serum/plasma values. (CLIA ID [id number]) Performed By: #### H EMDF, ETOH4, BMP3, PT/AP, LFT3, CUA2, DRGA4 #### [facility] [address] [place] [address] Glucose [Mass/Vol] 161 mg/dL High [address] [place] [address] Comment on above: Result Comment: Test performed by glucose meter. Results may be 10%-15% lower than serum/plasma values. (CLIA ID [id number]) Performed By: #### H EMDF, ETOH4, BMP3, PT/AP, LFT3, CUA2, DRGA4 #### [address] [place] [address] Glucose [Mass/Vol] 153 mg/dL High [address] [place] [address] Comment on above: Result Comment: Test performed by glucose meter. Results may be 10%-15% lower than serum/plasma values. (CLIA ID [id number]) Performed By: #### H EMDF, ETOH4, BMP3, PT/AP, LFT3, CUA2, DRGA4 #### [address] [place] [address] Glucose [Mass/Vol] 127 mg/dL [address] Comment on above: Result Comment: Test performed by glucose meter. Results may be 10%-15% lower than serum/plasma values. (CLIA ID [id number]) Performed By: #### H EMDF, ETOH4, BMP3, PT/AP, LFT3, CUA2, DRGA4 #### [address] [address] Glucose,Bedsideon 11-02-2019 Glucose [Mass/Vol] 265 mg/dL [address] Comment on above: Result Comment: Test performed by glucose meter. Results may be 10%-15% lower than serum/plasma values. (CLIA ID [id number]) Performed By: #### H EMDF, ETOH4, BMP3, PT/AP, LFT3, CUA2, DRGA4 #### [address] [address] Glucose [Mass/Vol] 262 mg/dL High [address] [place] [address] Comment on above: Result Comment: Test performed by glucose meter. Results may be 10%-15% lower than serum/plasma values. (CLIA ID [id number]) Performed By: #### H EMDF, ETOH4, BMP3, PT/AP, LFT3, CUA2, DRGA4 #### [address] [place] [address] Glucose [Mass/Vol] 198 mg/dL High [address] [facility] Comment on above: Result Comment: Test performed by glucose meter. Results may be 10%-15% lower than serum/plasma values. (CLIA ID [id number]) Performed By: #### H EMDF, ETOH4, BMP3, PT/AP, LFT3, CUA2, DRGA4 #### [address] [place] [address] Glucose [Mass/Vol] 186 mg/dL High 70-100 [facility] Comment on above: Result Comment: Test performed by glucose meter. Results may be 10%-15% lower than serum/plasma values. (CLIA ID [id number]) Performed By: #### H EMDF, ETOH4, BMP3, PT/AP, LFT3, CUA2, DRGA4 #### [address] [place] [address] Glucose,Bedsideon 11-01-2019 Glucose [Mass/Vol] 260 mg/dL High [address] Comment on above: Result Comment: Test performed by glucose meter. Results may be 10%-15% lower than serum/plasma values. (CLIA ID [id number]) Performed By: #### H EMDF, ETOH4, BMP3, PT/AP, LFT3, CUA2, DRGA4 #### [address] [place], [place] Glucose [Mass/Vol] 251 mg/dL High [address] Comment on above: Result Comment: live in caregiver Notified; Test performed by glucose meter. Results may be 10%-15% lower than serum/plasma values. (CLIA ID [id number]) Performed By: #### H EMDF, ETOH4, BMP3, PT/AP, LFT3, CUA2, DRGA4 #### [address] [place] [address] Glucose [Mass/Vol] 241 mg/dL High 70-100 [facility] Comment on above: Result Comment: Test performed by glucose meter. Results may be 10%-15% lower than serum/plasma values. (CLIA ID [id number]) Performed By: #### H EMDF, ETOH4, BMP3, PT/AP, LFT3, CUA2, DRGA4 #### [facility] [address] [place] [address] Glucose [Mass/Vol] 209 mg/dL High 70-100 [facility] Comment on above: Result Comment: Test performed by glucose meter. Results may be 10%-15% lower than serum/plasma values. (CLIA ID [id number]) Performed By: #### H EMDF, ETOH4, BMP3, PT/AP, LFT3, CUA2, DRGA4 #### [address] [place] [address] Glucose,Bedsideon 10-31-2019 Glucose [Mass/Vol] 248 mg/dL High [address] Comment on above: Result Comment: Test performed by glucose meter. Results may be 10%-15% lower than serum/plasma values. (CLIA ID [id number]) Performed By: #### H EMDF, ETOH4, BMP3, PT/AP, LFT3, CUA2, DRGA4 #### [facility] [address] [place] [address] Glucose [Mass/Vol] 224 mg/dL High 70-100 [facility] Comment on above: Result Comment: Test performed by glucose meter. Results may be 10%-15% lower than serum/plasma values. (CLIA ID [id number]) Performed By: #### H EMDF, ETOH4, BMP3, PT/AP, LFT3, CUA2, DRGA4 #### [address] [address] Glucose [Mass/Vol] 191 mg/dL High 70-100 [facility] Comment on above: Result Comment: Test performed by glucose meter. Results may be 10%-15% lower than serum/plasma values. (CLIA ID [id number]) Performed By: #### H EMDF, ETOH4, BMP3, PT/AP, LFT3, CUA2, DRGA4 #### [facility] [address] [place] [address] Glucose,Bedsideon 10-30-2019 Glucose [Mass/Vol] 287 mg/dL High 70-100 [facility] Comment on above: Result Comment: Test performed by glucose meter. Results may be 10%-15% lower than serum/plasma values. (CLIA ID [id number]) Performed By: #### H EMDF, ETOH4, BMP3, PT/AP, LFT3, CUA2, DRGA4 #### [facility] [address] [place] [address] Glucose [Mass/Vol] 245 mg/dL High 70-100 [facility] Comment on above: Result Comment: Test performed by glucose meter. Results may be 10%-15% lower than serum/plasma values. (CLIA ID [id number]) Performed By: #### H EMDF, ETOH4, BMP3, PT/AP, LFT3, CUA2, DRGA4 #### [facility] [address] [place] [address] Glucose [Mass/Vol] 256 mg/dL High 70-100 [facility] Comment on above: Result Comment: Test performed by glucose meter. Results may be 10%-15% lower than serum/plasma values. (CLIA ID [id number]) Performed By: #### H EMDF, ETOH4, BMP3, PT/AP, LFT3, CUA2, DRGA4 #### [facility] [address] [place] [address] Glucose [Mass/Vol] 220 mg/dL High 70-100 [facility] Comment on above: Result Comment: Test performed by glucose meter. Results may be 10%-15% lower than serum/plasma values. (CLIA ID [id number]) Performed By: #### H EMDF, ETOH4, BMP3, PT/AP, LFT3, CUA2, DRGA4 #### [facility] [address] [place] [address] Glucose,Bedsideon 10-29-2019 Glucose [Mass/Vol] 312 mg/dL High 70-100 [facility] Comment on above: Result Comment: Test performed by glucose meter. Results may be 10%-15% lower than serum/plasma values. (CLIA ID [id number]) Performed By: #### H EMDF, ETOH4, BMP3, PT/AP, LFT3, CUA2, DRGA4 #### [facility] [address] [place] [address] Glucose [Mass/Vol] 223 mg/dL High 70-100 [facility] Comment on above: Result Comment: Test performed by glucose meter. Results may be 10%-15% lower than serum/plasma values. (CLIA ID [id number]) Performed By: #### H EMDF, ETOH4, BMP3, PT/AP, LFT3, CUA2, DRGA4 #### [address] [place] [address] Glucose [Mass/Vol] 256 mg/dL High 70-100 [facility] Comment on above: Result Comment: Test performed by glucose meter. Results may be 10%-15% lower than serum/plasma values. (CLIA ID [id number]) Performed By: #### H EMDF, ETOH4, BMP3, PT/AP, LFT3, CUA2, DRGA4 #### [facility] [address] [place] [address] Glucose [Mass/Vol] 187 mg/dL High 70-100 [facility] Comment on above: Result Comment: Test performed by glucose meter. Results may be 10%-15% lower than serum/plasma values. (CLIA ID [id number]) Performed By: #### H EMDF, ETOH4, BMP3, PT/AP, LFT3, CUA2, DRGA4 #### [facility] [address] [place] [address] Hemoglobin A1Con 10-29-2019 HbA1c (Bld) [Mass fraction] 7.8 % High 4.0-6.0 [facility] Comment on above: Result Comment: --Hg bA1C levels may not be accurate in patients who have renal disease, received recent blood transfusions, are anemic, or who have dyshemoglobinemia. Performed By: #### H EMDF, ETOH4, BMP3, PT/AP, LFT3, CUA2, DRGA4 #### [address] HbA1c (Bld) [Mass fraction] 177 mg/dL Normal [facility] Comment on above: Performed By: #### H EMDF, ETOH4, BMP3, PT/AP, LFT3, CUA2, DRGA4 #### [address] eAG 177 mg/dL [place], [place] HbA1c (Bld) [Mass fraction] 7.8 % High 4 - 6 % [place] Comment on above: --HgbA1C levels may not be accurate in patients who have renal disease, received recent blood transfusions, are anemic, or who have dyshemoglobinemia. Interpretation and review of laboratory results Abnormal [place] Test Performed by [address] [address] [place] Lipid Panelon 10-29-2019 Protein [Mass/Vol] see below Abnormal <100 [facility] Comment on above: Result Comment: LDL unable to calculate, Trig >400 mg/dL Suggest ordering LDL-Chol,Direct. Performed By: #### H EMDF, ETOH4, BMP3, PT/AP, LFT3, CUA2, DRGA4 #### [address] Triglyceride [Mass/Vol] 881 mg/dL Abnormal <150 [facility] Comment on above: Performed By: #### H EMDF, ETOH4, BMP3, PT/AP, LFT3, CUA2, DRGA4 #### [address] Cholesterol [Mass/Vol] 177 mg/dL Normal < 200 [facility] Comment on above: Performed By: #### H EMDF, ETOH4, BMP3, PT/AP, LFT3, CUA2, DRGA4 #### [address] Cholesterol in HDL [Mass/Vol] 20 mg/dL Low 40-60 [facility] Comment on above: Performed By: #### H EMDF, ETOH4, BMP3, PT/AP, LFT3, CUA2, DRGA4 #### [address] [place] [address] Cholesterol.total/Ch olesterol in HDL [Mass ratio] 9 Normal [facility] Comment on above: Result Comment: Ref Range: < 3 Low Risk for CHD 3-6 Mod Risk for CHD > 6 High Risk for CHD Performed By: #### H EMDF, ETOH4, BMP3,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 session: 1 or 2 Binge frequency: Never Comment: hx social binge drinking greater than 10 yrs ago, quit - Drug use: No Comment: hx cocaine, heroin use 10 yrs ago, quit - Sexual activity: Not on file Comment: not asked ALLERGIES Allergen Reactions - Bleach (Sodium Hypo* Rash - Haldol [Haloperidol* Mental Status Change - Vicodin [Hydrocodon* Vomiting tolerates Review of Systems Constitutional: Negative for activity change, appetite change, chills, fatigue and fever. HENT: Negative for congestion, rhinorrhea and sore throat. Eyes: Negative for photophobia and visual disturbance. Respiratory: Positive for chest tightness and shortness of breath. Negative for cough and wheezing. Cardiovascular: Positive for chest pain and leg swelling. Negative for palpitations. Gastrointestinal: Negative for abdominal pain, constipation, diarrhea, nausea and vomiting. Genitourinary: Negative for dysuria, flank pain, frequency and hematuria. Musculoskeletal: Positive for back pain (chronic). Negative for neck pain. Skin: Negative for pallor and rash. Neurological: Negative for dizziness, weakness, light-headedness, numbness and headaches. Physical Exam BP 144/76 Pulse 82 Temp (Src) 98.8 (Oral) Resp 17 Ht 5' 11 (1.80m) Wt 308 lb (139.7kg) SpO2 95% BMI 42.98 kg/(m2). O2 Therapy: Room Air Physical Exam Vitals signs and nursing note reviewed. Constitutional: General: He is not in acute distress. Appearance: He is well-developed. He is not toxic-appearing. HENT: Head: Normocephalic and atraumatic. Right Ear: External ear normal. Left Ear: External ear normal. Nose: Nose normal. No congestion. Mouth/Throat: Mouth: Mucous membranes are moist. Pharynx: Oropharynx is clear. Eyes: Extraocular Movements: Extraocular movements intact. Conjunctiva/sclera: Conjunctivae normal. Pupils: Pupils are equal, round, and reactive to light. Neck: Musculoskeletal: Normal range of motion and neck supple. Cardiovascular: Rate and Rhythm: Normal rate and regular rhythm. Heart sounds: Normal heart sounds. No murmur. No friction rub. No gallop. Pulmonary: Effort: Pulmonary effort is normal. No tachypnea, accessory muscle usage or respiratory distress. Breath sounds: Examination of the right-lower field reveals decreased breath sounds. Examination of the left-lower field reveals decreased breath sounds. Decreased breath sounds present. No wheezing, rhonchi or rales. Chest: Chest wall: No tenderness or edema. Abdominal: General: Bowel sounds are normal. There is no distension. Palpations: Abdomen is soft. Tenderness: There is no abdominal tenderness. There is no guarding. Musculoskeletal: Normal range of motion. General: No deformity. Right lower leg: He exhibits no tenderness. Edema (2+ extending above the knee.) present. Left lower leg: He exhibits no tenderness. Edema (2+ extending above the knee.) present. Skin: General: Skin is warm. Capillary Refill: Capillary refill takes less than 2 seconds. Findings: No rash. Neurological: General: No focal deficit present. Mental Status: He is alert and oriented to person, place, and time. Mental status is at baseline. Cranial Nerves: No cranial nerve deficit. Motor: No weakness or abnormal muscle tone. Comments: NIH of 0 Psychiatric: Mood and Affect: Mood normal. Behavior: Behavior normal. Thought Content: Thought content normal. Judgment: Judgment normal. Diagnostic Testing ED Labs Ordered and Reviewed CBC + AUTO DIFF (AK,AV,EU,FV,HL,FLIP,MM,SP) - Abnormal; Notable for the following components: Result Value Ref Range RBC 4.00 (*) 4.63 - 6.08 mil/cmm HGB 11.6 (*) 13.7 - 17.5 g/dL Hematocrit 34.1 (*) 40.1 - 51.0 % Platelet Count 139 (*) 141 - 365 thou/cmm Immature Grans # 0.08 (*) 0.00 - 0.05 thou/cmm All other components within normal limits COMPREHENSIVE METABOLIC PANEL (AK,AV,EU,FV,HL,FLIP,MM,SP) - Abnormal; Notable for the following components: Glucose 271 (*) 74 - 99 mg/dL Creatinine 1.54 (*) 0.73 - 1.22 mg/dL All other components within normal limits PROBNP N-TERMINAL (AK,AV,EU,FV,HL,FLIP,MM,SP) - Abnormal; Notable for the following components: NT Pro BNP 583 (*) 0 - 124 pg/mL All other components within normal limits HIGH SENSITIVITY TROPONIN T (AK AV,EU,FV,HL,FLIP,MM,SP) - Abnormal; Notable for the following components: JHONATHAN High Sensitivity 24 (*) 0 - 11 ng/L All other components within normal limits HIGH SENSITIVITY TROPONIN T (AK AV,EU,FV,HL,FLIP,MM,SP) - Abnormal; Notable for the following components: JHONATHAN High Sensitivity 24 (*) 0 - 11 ng/L All other components within normal limits MAGNESIUM BLOOD (AK,AV,EU,FV,HL,FLIP,MM,SP) MDRD GFR Procedures ED Course / Clinical Impression MDM / Disposition / Plan MDM OBJECTIVE Patient presents to the emergency department nontoxic appearing, afebrile and hemodynamically stable. SUBJECTIVE Significant Physical Exam Findings as stated above. Laboratory workup: High sensitivity troponin unremarkable with no doubt to change. BNP elevated. CBC without evidence of leukocytosis however anemia not much unchanged from baseline. CMP without evidence of significant electrolyte abnormality. Evidence of hyperglycemia with baseline kidney function. EKG Interpretation: No acute findings consistent with ischemia, conduction abnormalities or arrhythmia. Imaging: XR CHEST 1V FRONTAL Final Result IMPRESSION: No acute findings radiographically. - I went over all of the patient's imaging findings in detail with them so they had a good grasp and understanding of both the pertinent and incidental findings. DIFFERENTIAL DIAGNOSIS The following disease processes were considered but felt unlikely given the patient's current clinical presentation: - Aortic Dissection seems unlikely given nature of the pain as neither ripping nor tearing, lack of sudden onset, lack of radiation to the back, lack of pulse deficit, lack of focal neurologic findings, and no widened mediastinum on CXR. - Esophageal Rupture seems unlikely given lack of recent esophageal procedure, lack of excessive vomiting, lack of crepitus on exam, lack of Riley's crunch on exam, and lack of pneumomediastinum on CXR. - Pericarditis with Tamponade unlikely given patient's vital signs, lack of characteristic EKG findings for pericarditis, lack of improvement with sitting forward, no JVD. - Tension PTX seems unlikley given patient's vital signs, symmetric breath sounds on exam and findings on CXR not consistent with tension PTX. - PE unlikely given the pain isn't pleuritic, the patient isn't tachycardic, the patient does not have tachypnea, there are no palpable cords, and the patient is satting well on RA. - GA: No evidence of STEMI on EKG. NSTEMI unlikely given negative initial troponin. - Patient is likely having a CHF exacerbation given the fact that he is fluid overloaded clinically. He may require a another echo to evaluate his output. - Patient came in initially requesting Percocet for his back pain. He was not here for his back pain but states that laying in his hospital bed exacerbated his back pain and he has a pretty significant history of surgical interventions on his back. Patient was offered a Roxicodone tablet. - The patient began getting more and more frustrated and requesting 3 mg of Dilaudid. INTERVENTION Medications oxyCODONE IR 5 mg tab(s) (ROXICODONE) (5 mg ORAL Not Given 07/26/191799) morphine 4 mg injection (4 mg INTRAVENOUS Given 07/26/191956) - Patient getting irritated with staff and yelling. Patient then fell on it or he will leave. Patient ended up eloping and locking past nursing staff saying that he had better things to do and he had to go back to the [facility]. Patient left without discharge instructions, final assessment or laboratory workup results. This note was created using [employer] dictation software. Every attempt was made to proofread, however you may find errors regardless of how insignificant they may be. They are purely unintentional and if there are any concerns regarding this dictation, please do not hesitate to call the dictating provider for clarification. SIGNATURE: DO Kristina Person (Agapito) DO Jacek Resident 07/26/19 1764 This is an attending note. I did personally examine the patient. Agree with the resident's examination, assessment, plan and written documentation. Patient presents today complaining of chest pain. He resides at an assisted living facility. He states that over the past week or so he has had shortness of breath with exertion as well as swelling in his bilateral lower extremities and weight gain. He denies a fever or chills. He denies current chest pain. He denies wheezing or coughing. He states he cannot lay flat secondary to shortness of breath and back pain. He denies nausea or vomiting. He denies abdominal pain. He has a history of chronic back pain which is unchanged. He states he is unhappy with his pain medicine regimen. On examination the patient is pacing in the room. He is afebrile nontoxic. Heart is regular rate and rhythm with no murmur. Lungs are clear to auscultation bilaterally. Equal 2+ bilateral radial pulses are palpated. Abdomen is soft and nontender. Normal strength in all 4 limbs. Alert and oriented ?3. The patient does have an extensive well-healed scar of his lower lumbar spine. He is ambulating normally. He is alert and oriented ?3. A chest x-ray shows no acute findings. Blood work reveals a BNP of 583, hemoglobin of 11.6 and a troponin of 24. The patient continued to increase throughout the room. He is upset because he does not feel his back pain as being evaluated even though this was not his chief complaint. He was offered his home dose of oral oxycodone which he did not want. He continues to demand IV Dilaudid. He eventually was given a small amount of morphine. He continues to be unhappy with his dose of narcotics and eventually opted to leave the emergency department without completing services. Maria Esther Sagastume MD 07/27/19 2342 [facility] ED NOTEon 05-07-2019 ED NOTE HNO ID: [id number] Author: Delma MarvinRn) JERROD Rosario Service: Emergency Medicine Author Type: Registered Nurse Type: ED Notes Filed: 05/06/2019 10:36 PM Note Text: Multiple attempts made to contact care facility unsuccessful (called the following numbers: [phone]; [phone]; and [phone]) [facility] ED PROV NOTEon 05-07-2019 ED PROV NOTE HNO ID: [id number] Author: Jeffrey Loera MD Service: Emergency Medicine Author Type: Physician Type: ED Provider Notes Filed: 05/06/2019 10:23 PM Note Text: ED Provider Note Patient Name: Chito Wells SERVICE DATE: 05/06/19 History Patient presents with: Back Pain: chronic 53-year-old male patient with a past medical history of chronic back pain. He is in a assisted living. He is coming in for neck pain. Patient states he has been having a disagreement with his physician regarding how many times a day he should be taking oxycodone. Patient feels he should have pain meds every 6 hours which would be 3 doses of oxycodone and 1 dose of morphine. He states this is why he thinks his pain is flaring up this evening. Pain is worse with movement better with staying still. Patient has had osteomyelitis following surgeries in the past and nonoperative management is being used for his symptoms. He states he currently does not have a pain management doctor and is just being managed by Dr. Yadav who is the [facility] doctor. 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 - Other and unspecified hyperlipidemia - Spinal stenosis in cervical region - Type II or unspecified type diabetes mellitus without mention of complication, uncontrolled (HCC) since 2000 - Unspecified essential hypertension since 1998 PAST SURGICAL HISTORY Procedure Laterality Date - BACK SURGERY HX pt has had 5 back surgeries, one which removed all of the hardware placed down his spinal column - HERNIA REPAIR HX x 3 - KNEE SCOPE,DIAGNOSTIC 4 on each knee - REMOVAL GALLBLADDER - STENT heart x2 FAMILY HISTORY Problem Relation Age of Onset - Hypertension Mother - Heart Father - Stroke Father Social History Tobacco Use - Smoking status: Current Every Day Smoker Packs/day: 0.50 Years: 25.00 Pack years: 12.50 Types: Cigarettes - Smokeless tobacco: Never Used - Tobacco comment: cig- 0.5-2 ppd. sometimes uses electric cig Substance and Sexual Activity - Alcohol use: Not Currently Comment: hx social binge drinking greater than 10 yrs ago, quit - Drug use: No Comment: hx cocaine, heroin use 10 yrs ago, quit - Sexual activity: Not on file Comment: not asked ALLERGIES Allergen Reactions - Haldol [Haloperidol* Mental Status Change - Vicodin [Hydrocodon* Vomiting tolerates Review of Systems Constitutional: Negative for fatigue and fever. Respiratory: Negative for shortness of breath and stridor. Cardiovascular: Negative for chest pain. Musculoskeletal: Positive for back pain and gait problem. Skin: Negative for color change and pallor. Psychiatric/Behavioral: Negative for agitation and behavioral problems. Physical Exam BP 185/87 Pulse 73 Temp (Src) 96.6 (Temporal) Resp 19 Ht 5' 11 (1.80m) Wt 273 lb (123.8kg) SpO2 97% BMI 38.09 kg/(m2). O2 Therapy: Room Air Physical Exam Vitals signs and nursing note reviewed. Constitutional: General: He is not in acute distress. Appearance: He is well-developed. He is not diaphoretic. HENT: Head: Normocephalic and atraumatic. Right Ear: External ear normal. Left Ear: External ear normal. Eyes: Conjunctiva/sclera: Conjunctivae normal. Pupils: Pupils are equal, round, and reactive to light. Neck: Musculoskeletal: Normal range of motion. Pulmonary: Effort: Pulmonary effort is normal. Abdominal: General: There is no distension. Palpations: There is no mass. Musculoskeletal: Normal range of motion. Comments: Patient has scar from previous surgeries and is midline lumbar spine Skin: General: Skin is warm. Findings: No erythema. Neurological: Mental Status: He is alert and oriented to person, place, and time. Psychiatric: Behavior: Behavior normal. Diagnostic Testing ED Labs Ordered and Reviewed - No data to display Procedures ED Course / Clinical Impression Clinical Impressions as of May 06 2219 Back pain, unspecified back location, unspecified back pain laterality, unspecified chronicity MDM / Disposition / Plan Patient is frustrated with his primary physician and the way his pain is managed. I did advise patient that we could not undermine his primary physician and prescribed him additional medications. I stated we could not also give him any injectable narcotics as he is under a care plan from a different physician. I will give him a dose of Toradol and oxycodone and he'll be discharged back to nursing facility. He does have a note in his chart of a past history of drug seeking behavior. Disposition The patient was discharged. Counseled patient regarding suspected diagnosis. As well as the need for follow-up. Discharged home with verbal and written instructions. They were instructed to return as needed for persistent or worsening symptoms or any new concerns. Condition at disposition is stable. SIGNATURE: MD Jeffrey Peña MD 05/06/193 [facility] ED NOTEon 05-06-2019 ED NOTE HNO ID: [id number] Author: Delma MarvinRn) JERROD Rosario Service: Emergency Medicine Author Type: Registered Nurse Type: ED Notes Filed: 05/06/2019 9:56 PM Note Text: Brought in by [facility] from [facility] with C/O low back pain. Per EMS patient has chronic back pain. Patient states he has had increased pain since Monday and has been unable to sleep and has had vomiting after eating due to the pain. States last emesis about 3 to 4 hours ago after eating dinner. Patient A AND O x 3, skin warm and dry. States pain sharp in nature. [facility] CASE MANAGEMon 04-18-2019 CASE MANAGEM HNO ID: [id number] Author: Megan MarvinRn) JERROD Garrido Service: Care Management Author Type: Registered Nurse Type: Care Mgt Progress Note Filed: 04/18/2019 11:22 AM Note Text: CARE MANAGEMENT DISCHARGE NOTE SERVICE DATE: April 18, 2019 SERVICE TIME: 11:20 AM LOS: 6 days Admission Date: 04/12/2019 DISCHARGE ARRANGEMENT (list agency and phone number) Discharge Arrangement: Assisted living CAREGIVER ASSESSMENT: Caregiver is ready, willing and able to meet the patient's needs as recommended by the inter-professional team:: Yes Does the patient have an acute stroke diagnosis, or has the patient had a stroke during this admission?: No Patient's transition needs and plan for meeting these needs: medically cleared for return HANDOFF COMMUNICATION: RN to RN TRANSPORTATION ARRANGEMENTS: Transportation Arrangements: Ambulance/[facility] Agency and Phone #:: [facility] [phone] Date of Trip: 04/18/19 Type of Service: Wheelchair Is Patient Medicaid Pending?: No Discussion of financial coverage occurred with: Patient Learning Design Specialist Location: [place] Destination: [facility] Financial Care Management Responsibility: None Patient cleared for discharge back to [facility] [place] Arrangements made and patient is aware SIGNATURE: Megan Garrido RN PATIENT NAME: Chito Wells DATE: April 18, 2019 TIME: 11:19 AM PAGER/CONTACT #: [phone] [facility] CNCOon 04-18-2019 CNCO Letter Text [facility] NURSING PROGon 04-18-2019 NURSING PROG HNO ID: [id number] Author: Irina MarvinRn) JERROD Montes De Oca Service: ? Author Type: Registered Nurse Type: Nursing Progress Note Filed: 04/18/2019 1:48 PM Note Text: Nursing Progress Note Patient Name: Chito Wells Patient Location: [place] [address]/[facility]-1 Daily Note: 0715 bedside report received from previous nurse. 0745 assessment completed. C/o of generalized pain but declines medication until dilaudid is due. Declines BP at this time. Okay to take when morning meds are due. Pt eating breakfast. No needs. Call light in reach. Will monitor. 1030 Dr. Belcher on unit to see pt. Okay for discharge. 1335 Security on unit to return items to pt. 1343 Pt discharged from unit. This note was completed by: Irina Montes De Oca RN [facility] PLAN OF CAREon 04-18-2019 PLAN OF CARE HNO ID: [id number] Author: Keeley Batista (Pharmacist) Service: Pharmacy Author Type: Pharmacist Type: Plan of Care Filed: 04/18/2019 10:59 AM Note Text: DISCHARGE MEDICATION REVIEW BY PHARMACY Patient Name: Chito Wells Account #: Data Unavailable Admission Date: 04/12/2019 Date of Contact: April 18, 2019 Time of Contact: 10:59 AM Medication list was reviewed by a Pharmacist for drug interactions or drug related problems:Yes Below is a summary of pharmacist recommendations discussed with LIP: No Recommendations at this time from Discharge Medication List. All medications reconciled at discharge appropriately. KEELEY BATISTA, PHARMACIST April 18, 2019 10:59 AM Medication List START taking these medications aspirin, enteric coated 81 mg EC tablet Commonly known as: ASPIRIN, ENTERIC COATED Take 1 tablet by mouth once daily. Start taking on: April 19, 2019 atorvastatin 20 mg tablet Commonly known as: LIPITOR Take 1 tablet by mouth daily at bedtime. CONTINUE taking these medications amLODIPine 10 mg tablet Commonly known as: NORVASC ascorbic acid-ascorbate sodium 250 mg chewable tablet Commonly known as: VITAMIN C BENADRYL ALLERGY 25 mg tablet Generic drug: diphenhydrAMINE BIOFREEZE (MENTHOL) 4 % Gel Generic drug: menthol cloNIDine HCl 0.2 mg tablet Commonly known as: CATAPRES COREG ORAL CYCLOBENZAPRINE ORAL doxycycline hyclate 100 mg capsule Commonly known as: VIBRAMYCIN DULoxetine 30 mg capsule Commonly known as: CYMBALTA famotidine 40 mg tablet Commonly known as: PEPCID Fenofibrate 160 mg tablet Commonly known as: LOFIBRA ferrous sulfate 325 mg (65 mg iron) tablet FLOMAX 0.4 mg Cap Generic drug: tamsulosin ER fluticasone 50 mcg/actuation nasal spray Commonly known as: FLONASE gabapentin 400 mg capsule Commonly known as: NEURONTIN hydrALAZINE 100 mg tablet Commonly known as: APRESOLINE hydrocortisone 1 % cream hydrOXYzine HCl 25 mg tablet Commonly known as: ATARAX ipratropium-albuterol 0.5 mg-3 mg(2.5 mg base)/3 mL Nebu Commonly known as: DUONEB isosorbide mononitrate ER 30 mg 24 hr tablet Commonly known as: IMDUR KEPPRA 250 mg tablet Generic drug: levETIRAcetam morphine SR 30 mg 12 hr tablet Commonly known as: MS CONTIN, ORAMORPH SR NOVOLOG FLEXPEN U-100 INSULIN SUBCUTANEOUS NOVOLOG MIX 70-30 SUBCUTANEOUS oxyCODONE IR 10 mg Tab Commonly known as: ROXICODONE spironolactone 25 mg tablet Commonly known as: ALDACTONE torsemide 20 mg tablet Commonly known as: DEMADEX traZODone 50 mg tablet Commonly known as: DESYREL TYLENOL EXTRA STRENGTH 500 mg tablet Generic drug: acetaminophen ZOFRAN 4 mg tablet Generic drug: ondansetron Where to Get Your Medications You can get these medications from any pharmacy Bring a paper prescription for each of these medications ? aspirin, enteric coated 81 mg EC tablet ? atorvastatin 20 mg tablet Normal [facility] PROGRESSon 04-18-2019 PROGRESS HNO ID: [id number] Author: Lauro Garcia Service: Nephrology Author Type: Physician Type: Progress Notes Filed: 04/18/2019 11:03 AM Note Text: At this time patient has not been cooperating. He has been refusing treatment, vitals check, blood draws. He states he is being discharged. I reminded him that because he did not allow labs we do not know if his kidneys continued to improve or not. He was evasive about it. Renal signing off. Normal [facility] Toxicology Screen,Uron 04-18 Amphetamines, Urine Negative Normal Negative [facility] Comment on above: Result Comment: Cuto ff threshold at 1000 ng/mL. Barbiturates, Urine Negative Normal Negative [facility] Comment on above: Result Comment: Cuto ff threshold at 200 ng/mL. Benzodiazepines, Ur Negative Normal Negative [facility] Comment on above: Result Comment: Cuto ff threshold at 200 ng/mL. Cannabinoids, Urine Negative Normal Negative [facility] Comment on above: Result Comment: Cuto ff threshold at 50 ng/mL. Cocaine, Urine Negative Normal Negative [facility] Comment on above: Result Comment: Cuto ff threshold at 300 ng/mL. Ethanol, Urine <11 Normal <11 [facility] Opiates, Urine Positive Critically abnormal Negative [facility] Comment on above: Result Comment: Cuto ff threshold at 300 ng/mL. Oxycodone, Urine Positive Critically abnormal Negative [facility] Comment on above: Result Comment: Cuto ff threshold at 100 ng/mL. Comment: Immunoassay screen only. Cross reactivity with other substances can occur with immunoassay screening. Detection of any drug(s) in this urine toxicology panel is presumptive only. These tests are for medical purposes only and should not be used for compliance monitoring, legal, or forensic use. Samples should be within normal physiological conditions (e.g. pH). This assay does not include adulteration/specimen validity testing. In clinical settings, confirmatory testing is at the practitioner's discretion [1]. If clinically indicated, confirmation by high specificity, quantitative methodology, which includes adulteration/specimen validity testing, may be requested on the same specimen through Client Services ([phone]) if contacted within 48 hours of initial testing. [1]Substance Abuse and Mental Health Services Administration (2012). Clinical Drug Testing in Primary Care Technical Assistance Publication Series 32. Department of Health and Human Services, [place], p.10. Phencyclidine, Urine Negative Normal Negative [facility] Comment on above: Result Comment: Cuto ff threshold at 25 ng/mL. ALLIED HEALTHon 04-17-2019 ALLIED HEALTH HNO ID: [id number] Author: Chaplain Lan (Chaplain) Service: Spiritual Care Author Type: Marquetry Worker Type: Allied Health Filed: 04/17/2019 3:07 PM Note Text: [facility] SPIRITUAL CARE ASSESSMENT Type of Visit Spiritual Assessment Intro Information Visit with: Patient Length of visit: 30 min Caodaism / Spirituality: Spiritism but disconnected Reason Referral from: Other Health Care Worker: Healing Service Purpose of Referral (if stated): Spiritual Assessment Assessment Emotional Disposition Angry Relational Concerns Lack of clarity about diagnosis or treatment Spiritual Concerns Struggling with transition or change Notes Pt expressed anger at waiting for so long to be moved to new unit. Pt expressed anger at lack of privacy quiet. Interventions Empowerment Informed patient of spiritual care resources available and Normalized experience of patient/family Exploration Explored emotional needs and resources, Explored spiritual needs and resources and Facilitated story telling Relationship Building Provided silent and supportive presence Notes Outcomes Patient expressed hope based on preferred future outcomes Notes Plan Will follow up if requested SIGNATURE: CHAPLAIN Edyta PATIENT NAME: Chito Wells DATE: April 17, 2019 TIME: 3:03 PM [facility] HEALTH HNO ID: [id number] Author: Yoselin Thomas (Rn) JERROD Pedro Service: Healing Service Author Type: Registered Nurse Type: Allied Health Filed: 04/17/2019 1:28 PM Note Text: HEALING SERVICES THERAPY NOTE SERVICE DATE: 04/17/2019 SERVICE TIME: 1045 INTERVENTIONAL FOCUS: Anticipatory Change in Care Emotional Support Self-directed Care / Patient Experience Visit With: Patient Urgency of Visit: Routine Type of Visit: Patient Not Available clinician at bedside speaking with pt. will follow up as able. SIGNATURE: Yoselin Pedro RN PATIENT NAME: Chito Wells DATE: April 17, 2019 TIME: 1:28 PM PAGER/CONTACT #: [phone] [facility] CONSULT PROGon 04-17-2019 CONSULT PROG HNO ID: [id number] Author: Samuel Belcher Jr. Service: Cardiovascular Disease Author Type: Physician Type: Consult Progress Note Filed: 04/17/2019 4:24 PM Note Text: General: Well nourished and in no acute distress. BP 148/75 Pulse 67 Temp 36.9 ?C (98.4 ?F) (Oral) Resp 16 Ht 180.3 cm (5' 11) Wt 126 kg (277 lb 12.5 oz) SpO2 98% BMI 38.74 kg/m? Skin warm and dry. Head atraumatic and normocephalic. Eyes anicteric w/o conjunctival injection. Oral mucosa moist. Psychiatric: anxious Neurologic: Moves all extremities. Alert. No facial asymmetry. Speech fluent. Pulmonary: Good air movement without adventitious sounds. Cardiac: JVD or HJR: Not present at 45 degrees. No gallop, click or rub. PMI not palpable. Carotids 2+ w/o bruit. Murmur: none Pedal Edema: present GI: Abdomen soft and nontender w/o palpable organomegally. Musculoskeletal: No gross amputations. NSTEMI Went over with I believe reperfusion cause of high trop peak Cant lie flat for stress or cath Med tx D/c tomorrow [facility] CONSULT PROG HNO ID: [id number] Author: Hannah Pryor APRN.NELIDA Service: Endocrinology Author Type: Nurse Practitioner Type: Consult Progress Note Filed: 04/17/2019 3:25 PM Note Text: INPATIENT PROGRESS NOTES PATIENT NAME: Chito Wells SERVICE DATE: 04/17/2019 SERVICE TIME: 2:09 PM INTERVAL HPI: 04/12:from [facility] with epigastric pain - NSTEMI D/c tomorrow? ? ASSESSMENT AND PLAN Diabetes - pt had low glucose yesterday before lunch, BG of 59, FBG yesterday was 109 - todays FBG 220, lunch 121 - did consider decreasing prandial considering the low BG yesterday, however pt states that he ate a lot less then he normally does at that time. Pt just finished eating his entire lunch and feels confident that 15 units + ss if appropriate as pt usually takes 20 units + ss at home - keep 70/30 insulin 100 units BID - keep HL 15-15-15 AC - decrease SS#3 Ac/HS to #2 ? GA HTN HPL CKD ? REVIEW OF SYSTEMS: Pt c/o pain- chronic pain issues, denies CP or feeling SOB, denies h/a and dizziness, pt states he is eating and drinking without issue, denies N,V,D, C. MEDICATIONS: Current Facility-Administered Medications Medication Dose Route Frequency - aspirin, enteric coated 81 mg tab(s) 81 mg ORAL DAILY - carvedilol 12.5 mg tab(s) (COREG) 12.5 mg ORAL BID w MEALS - dextrose 40 % 15 g 15 g ORAL PRN Or - glucagon 1 mg injection (GLUCAGEN) 1 mg INTRAMUSCULAR PRN Or - dextrose 50 % 12.5 g injection 12.5 g INTRAVENOUS PRN - amLODIPine 10 mg tab(s) (NORVASC) 10 mg ORAL DAILY - cyclobenzaprine 10 mg tab(s) (FLEXERIL) 10 mg ORAL TID PRN - diphenhydrAMINE 25 mg (BENADRYL) 25 mg ORAL q 6 H PRN - DULoxetine 30 mg cap(s) (CYMBALTA) 30 mg ORAL BID - famotidine 40 mg tab(s) (PEPCID) 40 mg ORAL DAILY - Fenofibrate 160 mg (LOFIBRA) 160 mg ORAL DAILY - fluticasone 50 mcg/actuation 1 [employer] (FLONASE) 1 [employer] EACH NOSTRIL DAILY - gabapentin (NEURONTIN) cap(s) 400 mg 400 mg ORAL QID - ipratropium-albuterol 3 mL nebulizer solution (DUONEB) 3 mL INHALATION q 4 H PRN - levETIRAcetam 250 mg tab(s) (KEPPRA) 250 mg ORAL BID - ondansetron 4 mg tab(s) (ZOFRAN) 4 mg ORAL q 6 H PRN - tamsulosin ER 0.4 mg cap(s) (FLOMAX) 0.4 mg ORAL DAILY - traZODone (DESYREL) tab(s) 150 mg 150 mg ORAL DAILY - doxycycline hyclate 100 mg cap(s) (VIBRAMYCIN) 100 mg ORAL BID - morphine SR 15 mg tab(s) (MS CONTIN, ORAMORPH SR) 15 mg ORAL q NOON - oxyCODONE IR 10 mg tab(s) (ROXICODONE) 10 mg ORAL q 12 H 6a/6p - HYDROmorphone 1 mg injection (DILAUDID) 1 mg INTRAVENOUS q 12 H PRN - insulin 70/30 insulin aspart prt/insulin aspart units/mL 100 Units injection (mixed intermediate and rapid acting) (NovoLOG MIX 70/30) 100 Units SUBCUTANEOUS BID w MEALS - insulin lispro 15 Units injection (rapid acting) (HumaLOG) 15 Units SUBCUTANEOUS w MEALS - insulin lispro injection (rapid acting) (HumaLOG) SUBCUTANEOUS AT BEDTIME - insulin lispro injection (rapid acting) (HumaLOG) SUBCUTANEOUS w MEALS - hydrALAZINE 25 mg tab(s) (APRESOLINE) 25 mg ORAL q 12 H - cloNIDine HCl 0.1 mg tab(s) (CATAPRES) 0.1 mg ORAL TID - atorvastatin 20 mg tab(s) (LIPITOR) 20 mg ORAL AT BEDTIME - hydrALAZINE 20 mg injection (APRESOLINE) 20 mg INTRAVENOUS q 6 H PRN - spironolactone 25 mg tab(s) (ALDACTONE) 25 mg ORAL BID OBJECTIVE PHYSICAL EXAM: Patient Vitals for the past 24 hrs: BP Temp Temp src Pulse Resp SpO2 Weight 04/17/19 1400 164/78 ? ? 67 19 98 % ? 04/17/19 1300 ? ? ? 67 10 97 % ? 04/17/19 1200 146/74 ? ? 66 10 96 % ? 04/17/19 1100 144/71 ? ? 66 10 93 % ? 04/17/19 1000 140/69 ? ? 67 18 97 % ? 04/17/19 0930 ? 36.8 ?C (98.2 ?F) Oral ? ? 97 % ? 04/17/19 0900 148/71 ? ? 65 16 96 % ? 04/17/19 0800 193/85 ? ? 72 11 96 % ? 04/17/19 0700 142/70 ? ? 66 10 96 % ? 04/17/19 0600 167/80 ? ? 63 13 98 % 126 kg (277 lb 12.5 oz) 04/17/19 0500 123/58 ? ? 66 13 95 % ? 04/17/19 0400 133/63 37 ?C (98.6 ?F) Oral 66 16 95 % ? 04/17/19 0300 144/74 ? ? 63 14 95 % ? 04/17/19 0200 140/68 ? ? 63 14 95 % ? 04/17/19 0100 132/64 ? ? 64 16 95 % ? 04/17/19 0000 146/69 ? ? 71 14 95 % ? 04/16/19 2330 ? 37 ?C (98.6 ?F) Oral ? 04/16/19 2300 145/70 ? ? 66 14 95 % ? 04/16/19 2200 154/74 ? ? 69 14 95 % ? 04/16/19 2100 153/72 ? ? 77 25 96 % ? 04/16/192024 ? 36.9 ?C (98.4 ?F) Oral ? 04/16/19 2000 148/70 ? ? 74 16 96 % ? 04/16/19 1900 163/79 ? ? 74 13 ? ? 04/16/19 1800 156/74 ? ? 73 14 97 % ? 04/16/19 1700 146/70 ? ? 71 12 98 % ? 04/16/19 1615 ? 36.9 ?C (98.4 ?F) Oral ? ? 96 % ? 04/16/19 1600 154/75 ? ? 75 12 96 % ? 04/16/19 1500 156/63 ? ? 79 24 95 % ? Body mass index is 38.74 kg/m?. GENERAL: alert, calm, cooperative, no acute distress CARDIAC: Regular rate and rhythm, no murmur LUNGS: Clear to auscultation ABDOMEN: bowel sounds normoactive EXTREMITIES: Extremities no edema. NEURO: Awake, alert and oriented x 3 Recent Labs 04/16/19 1145 04/16/19 0500 04/15/19 0627 WBC -- 8.02 7.70 HB -- 12.2* 11.9* HCT -- 37.5* 37.3* PLT -- 211 189 NA 141 -- 140 K 3.4* -- 3.3* CHLOR 100 -- 101 CO2 29 -- 27 CREAT 1.92* -- 2.23* BUN 23 -- 30* GLUC 64* -- 70* P 2.4* -- 3.8 TPROT -- 7.0 -- ALB 3.7* 3.7* 3.6* CA 9.2 -- 9.2 ALKPHOS -- 57 -- TBILI -- 0.2 -- AST -- 24 -- ALT -- 18 -- Glucose, Point of Care Date Value Ref Range Status 04/17/2019 220 (A) 74 - 99 mg/dL Final 04/16/2019 267 (A) 74 - 99 mg/dL Final 04/16/2019 294 (A) 74 - 99 mg/dL Final 04/16/2019 87 74 - 99 mg/dL Final 04/16/2019 59 (A) 74 - 99 mg/dL Final 04/16/2019 109 (A) 74 - 99 mg/dL Final 04/15/2019 116 (A) 74 - 99 mg/dL Final Cholesterol, Total Date Value Ref Range Status 12/01/2007 179 100 - 199 mg/dL Final HDL Cholesterol Date Value Ref Range Status 12/01/2007 30 (L) >45 mg/dL Final LDL Cholesterol Date Value Ref Range Status 12/01/2007 91 60 - 129 mg/dL Final Triglyceride Date Value Ref Range Status 12/01/2007 289 (H) 30 - 149 mg/dL Final SIGNATURE: Hannah Pryor CNP PHONE: 8:00 am to 4:30 PM Call/page Dr. Wheatley consulting sme for other times [facility] NURSING PROGon 04-17-2019 NURSING PROG HNO ID: [id number] Author: Riki (Rn) JERROD Gallagher Service: ? Author Type: Registered Nurse Type: Nursing Progress Note Filed: 04/18/2019 6:10 AM Note Text: Nursing Progress Note Patient Name: Chito Wells Patient [facility] Daily Note: 1900: Received report from travis ELDER 2000: Completed full assessment. See flowsheets. Pt refusing continues bp monitoring and pulse ox. Pt educated on the need for both, still refuses. 0000: Completed full assessment, pt back in bed, refusing bed alarm, reminded to use call light. Pt states he does not want to be bothered until morning. Still refusing pulse ox and BP monitoring. 0400: Completed full assessment, see flowsheets, pt refusing pulse ox and BP monitoring 0600: Small rash noted on pts L arm, itching slightly. Gave pt benadryl and Ice, will continue to monitor. This note was completed by: Riki Gallagher RN [facility] NURSING PROG HNO ID: [id number] Author: Gumaro (Rn) JERROD Andres Service: Nursing Author Type: Registered Nurse Type: Nursing Progress Note Filed: 04/17/2019 6:33 PM Note Text: Nursing Progress Note Patient Name: Chito Wells Patient Location: [facility] Daily Note: 0800 Assess done, see flowsheet. Pt awake and oriented, complaining of back pain, to be medicated, denies sob and n/v, will cont to monitor. 1000 Pt resting quietly. 1130 Pt refusing labs at this time, encouraged to do so, cont to refuse, states he is waiting to hear from MD MARIBEL paged. 1200 Dr. Belcher updated, pt to transfer to [facility] with tele, possibly home tomorrow. Assess done, no changes noted, pt resting quietly, no s/s of distress. 1245 Pt oob, walked to restroom, catherine well, denies cp and sob, will cont to monitor. 1400 Pt in chair, no s/s of distress. 1600 Assess done, no changes noted from prev phys assess. Pt remains in chair, catherine well, no s/s of distress. 1800 Pt walking around unit, catherine well, no s/s of distress. This note was completed by: Gumaro Andres RN [facility] NURSING PROG HNO ID: [id number] Author: Ginna MarvinRn) JERROD Shukla Service: Nursing Author Type: Registered Nurse Type: Nursing Progress Note Filed: 04/17/2019 4:38 AM Note Text: Nursing Progress Note Patient Name: Chito Wells Patient Location: [place] [address] [address]1 Daily Note:5 Assessment as per flowsheet. 2115pt medicated for c/o pain 2145 stood at side of bed to void. 0000 Assessment as per flowsheet. 0200 resting quietly. 0410 Assessment as per flowsheet. This note was completed by: Ginna Shukla RN [facility] PROGRESSon 04-17-2019 PROGRESS HNO ID: [id number] Author: Chito Thorpe Service: Nephrology Author Type: Physician Type: Progress Notes Filed: 04/17/2019 4:56 PM Note Text: [id number] [facility] PROGRESS HNO ID: [id number] Author: Chito Thorpe Service: Nephrology Author Type: Physician Type: Progress Notes Filed: 04/18/2019 5:57 PM Note Text: [facility] Progress Note CHITO WELLS CSN#: [id number] PATIENT TYPE: LOCATION: [address] ORIGINATOR: Chito Thorpe MD DATE OF SERVICE: 04/17/2019 DATE OF SERVICE: 04/17/2019 TIME OF SERVICE: 04:55 PM This is someone whom we are seeing for CKD stage 3 secondary to hypertension. He has diffuse coronary artery disease, we are presuming, and he is being treated medically by Cardiology. He also has pain seeking drug behavior and that is focus of his interaction with the doctors as wanting more medicines. He again did that today. His kidney function got worse while inhouse from too much antihypertensive medicine and he has now heading in the right direction and his urine output is picking up. He refused blood draw today. He was not interested in the blood draw status, but trying to get pain medicine. Currently, he is on amlodipine 10 daily, aspirin 81 daily, atorvastatin 20 daily, carvedilol, which I am increasing to 25 b.i.d. He says as an outpatient, he was on 37.5 b.i.d. I think we need to focus on giving him Carvedilol and continue to wean his clonidine. I am cutting it down to 0.05 mg b.i.d., and I think that when he leaves we he should have that medicine on taper to off schedule and go up on his clonidine. He is having side effects from the clonidine fatigue and abnormal dreams and dry mouth, and we get better cardioprotective effect from Carvedilol anyway. He was started on doxycycline on the , but I don't know if he needs to finish that. his renal insufficiency, famotidine, fenofibrate, Neurontin 400 q.i.d. which is a high dose, hydralazine 25 q.12 hours, insulin therapy, oxycodone 10 mg q.12 hours, and morphine SR. He is getting plenty of pain medicine but he does not appear to be in any distress at all when asking for more medicine. Spironolactone 25 b.i.d., Flomax 0.4 mg daily. He is on torsemide 40 mg a day according to the patient, as an outpatient. I am going to restart his dose tomorrow at 20 mg while he is in-house along with the spironolactone. Yesterday, his creatinine is down from 2.23 to 1.92, and he is nonoliguric. K 3.4, CO2 29. I am giving him less in the way of a diuretic while he is here because he is on a fluid restriction here and hospitalized. He does have 1+ ankle edema, so needs to be start on diuretics. He does not have any fluid in his lungs. No pericardial friction rub or S3. 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 He also has my card and he can have her call me CBAY DOC: [id number] cc: [facility] PT EDon 04-17-2019 PT ED HNO ID: [id number] Author: Kayla (Rn) Buzz, RN Service: Nursing Author Type: Registered Nurse Type: Patient Education Filed: 04/17/2019 10:57 AM Note Text: PATIENT EDUCATION TOPIC: PATIENT INFORMATION: [place] PATIENT NAME: Chito Wells PATIENT LOCATION: [place] [address] READINESS TO LEARN COGNITIVE ABILITY: Alert and oriented MOTIVATION TO LEARN: FAMILY SUPPORT: Unable to assess - Family not present INSTRUCTION PROVIDED TO: Patient PATIENT LEARNS BEST BY: Written Instruction - Hand-outs FACTORS AFFECTING LEARNING: Unable to assess PHYSICAL LIMITATIONS AFFECTING LEARNING: Pain and Fatigue LEARNING RESPONSE DIAGNOSIS: ADULT: NSTEMI PATIENT/FAMILY RESPONSE: Does not perform skill independently: AL assists w/ medications and provides meals METHOD OF INSTRUCTION: Written instruction - handouts FOLLOW-UP PLAN: Contact information given. INSTRUCTIONAL AIDS USED: [place] Education (Ankit and Recovery Binder) SUPPLEMENTAL MATERIAL PROVIDED TO PATIENT: Title of written material: Warning Signs, Activity, Diet, Heart- Smart Living, Common Medications(Aspirin,Lipitor, Coreg,Lofibra,Amlodipine,Hyd ralazine,Spironolac tone) BUFFING WHEEL INSPECTOR: REFERRAL (RECOMMENDATION): Nursing Facility [facility] Social Work Electronically Signed By: Kayla Gerber, RN Patient [employer] Operator SEE PATIENT EDUCATION SECTION OF THE EMR [facility] APTTon 04-16-2019 aPTT Coag (Bld) [Time] 61.5 s High 23.0-32.4 [facility] Comment on above: Result Comment: Unfr actionated Heparin Therapeutic Ranges: Standard Heparin Nomogram: 53 to 78 seconds (anti-Xa level of 0.3 to 0.7 U/ml) Low Dose/ACS Nomogram: 49 to 67 seconds (anti-Xa level of 0.2 to 0.5 U/ml) Stroke Treatment Nomogram: 49 to 67 seconds (anti-Xa level of 0.2 to 0.5 U/ml) Note: The APTT therapeutic range has been determined for the current lot of laboratory APTT reagent in use throughout the [facility]. CBCon 04-16-2019 Absolute nRBC <0.01 Normal <0.01 [facility] Erythrocyte distribution width (RBC) [Ratio] 12.7 % Normal 11.5-15.0 [facility] Hematocrit (Bld) [Volume fraction] 37.5 % Low 39.0-51.0 [facility] Hemoglobin (Bld) [Mass/Vol] 12.2 g/dL Low 13.0-17.0 [facility] MCH (RBC) [Entitic mass] 27.5 pG Normal 26.0-34.0 [facility] MCHC (RBC) [Mass/Vol] 32.5 g/dL Normal 30.5-36.0 [facility] MCV (RBC) [Entitic vol] 84.7 fL Normal 80.0-100.0 [facility] Platelet mean volume (Bld) [Entitic vol] 9.2 fL Normal 9.0-12.7 [facility] Platelets (Bld) [#/Vol] 211 10*3/uL Normal 150-400 [facility] RBC (Bld) [#/Vol] 4.43 10*6/uL Normal 4.20-6.00 [facility] WBC (Bld) [#/Vol] 8.02 10*3/uL Normal 3.70-11.00 [facility] CONSULT PROGon 04-16-2019 CONSULT PROG HNO ID: [id number] Author: Samuel Belcher Jr. Service: Cardiovascular Disease Author Type: Physician Type: Consult Progress Note Filed: 04/16/2019 11:03 AM Note Text: General: Well nourished and in no acute distress. BP 151/75 Pulse 66 Temp 36.9 ?C (98.4 ?F) (Oral) Resp 11 Ht 180.3 cm (5' 11) Wt 124.7 kg (274 lb 14.6 oz) SpO2 93% BMI 38.34 kg/m? Skin warm and dry. Head atraumatic and normocephalic. Eyes anicteric w/o conjunctival injection. Oral mucosa moist. Psychiatric: Normal mood and affect. Neurologic: Moves all extremities. Alert and oriented. No facial asymmetry. Speech fluent. Pulmonary: Good air movement without adventitious sounds. Cardiac: JVD or HJR: Not present at 45 degrees. No gallop, click or rub. PMI not palpable. Carotids 2+ w/o bruit. Murmur: none Pedal Edema: present GI: Abdomen soft and nontender w/o palpable organomegally. Musculoskeletal: No gross amputations. Start statin D/c ntg and heparin Keep in unit o/n [facility] CONSULT PROG HNO ID: [id number] Author: Hannah (Nelida) DIANA Pryor.CIGAR INSPECTOR Service: Endocrinology Author Type: Nurse Practitioner Type: Consult Progress Note Filed: 04/16/2019 10:53 AM Note Text: INPATIENT PROGRESS NOTES PATIENT NAME: Chito Wells SERVICE DATE: 04/16/2019 SERVICE TIME: 9:58 AM INTERVAL HPI: 04/12:from fdc with epigastric pain - NSTEMI Today: pt is asking when he can go, he lives in assisted living ASSESSMENT AND PLAN Diabetes - FBG 109 - glucose has been stable on current plan - keep 70/30 insulin 100 units BID - keep HL 15-15-15 AC - keep SS#3 Ac/HS GA HTN HPL CKD REVIEW OF SYSTEMS: Pt c/o chronic pain in his back, denies CP or feeling SOB, denies h/a and dizziness, pt states he is eating and drinking without issue, denies N,V,D, C. MEDICATIONS: Current Facility-Administered Medications Medication Dose Route Frequency - aspirin, enteric coated 81 mg tab(s) 81 mg ORAL DAILY - carvedilol 12.5 mg tab(s) (COREG) 12.5 mg ORAL BID w MEALS - perflutren lipid microspheres 1.1 mg/mL 1.3 mL injection (DEFINITY) 1.3 mL INTRAVENOUS DIRECTED PRN - heparin iv infusion (LOW DOSE ACS/NOMOGRAM) 25,000 units in NaCl 0.45% 250 mL PREMIX 0-3,000 Units/hr INTRAVENOUS CONTINUOUS And - heparin RATE CHANGE bolus 1,000-4,000 Units for subtherapeutic aptt results 1,000-4,000 Units INTRAVENOUS PRN - nitroglycerin 50 mg in D5W 250 mL 5-200 mcg/min INTRAVENOUS CONTINUOUS - dextrose 40 % 15 g 15 g ORAL PRN Or - glucagon 1 mg injection (GLUCAGEN) 1 mg INTRAMUSCULAR PRN Or - dextrose 50 % 12.5 g injection 12.5 g INTRAVENOUS PRN - amLODIPine 10 mg tab(s) (NORVASC) 10 mg ORAL DAILY - cyclobenzaprine 10 mg tab(s) (FLEXERIL) 10 mg ORAL TID PRN - diphenhydrAMINE 25 mg (BENADRYL) 25 mg ORAL q 6 H PRN - DULoxetine 30 mg cap(s) (CYMBALTA) 30 mg ORAL BID - famotidine 40 mg tab(s) (PEPCID) 40 mg ORAL DAILY - Fenofibrate 160 mg (LOFIBRA) 160 mg ORAL DAILY - fluticasone 50 mcg/actuation 1 [employer] (FLONASE) 1 [employer] EACH NOSTRIL DAILY - gabapentin (NEURONTIN) cap(s) 400 mg 400 mg ORAL QID - ipratropium-albuterol 3 mL nebulizer solution (DUONEB) 3 mL INHALATION q 4 H PRN - levETIRAcetam 250 mg tab(s) (KEPPRA) 250 mg ORAL BID - ondansetron 4 mg tab(s) (ZOFRAN) 4 mg ORAL q 6 H PRN - tamsulosin ER 0.4 mg cap(s) (FLOMAX) 0.4 mg ORAL DAILY - traZODone (DESYREL) tab(s) 150 mg 150 mg ORAL DAILY - doxycycline hyclate 100 mg cap(s) (VIBRAMYCIN) 100 mg ORAL BID - morphine SR 15 mg tab(s) (MS CONTIN, ORAMORPH SR) 15 mg ORAL q NOON - oxyCODONE IR 10 mg tab(s) (ROXICODONE) 10 mg ORAL q 12 H 6a/6p - HYDROmorphone 1 mg injection (DILAUDID) 1 mg INTRAVENOUS q 12 H PRN - insulin 70/30 insulin aspart prt/insulin aspart units/mL 100 Units injection (mixed intermediate and rapid acting) (NovoLOG MIX 70/30) 100 Units SUBCUTANEOUS BID w MEALS - insulin lispro 15 Units injection (rapid acting) (HumaLOG) 15 Units SUBCUTANEOUS w MEALS - insulin lispro injection (rapid acting) (HumaLOG) SUBCUTANEOUS AT BEDTIME - insulin lispro injection (rapid acting) (HumaLOG) SUBCUTANEOUS w MEALS - hydrALAZINE 25 mg tab(s) (APRESOLINE) 25 mg ORAL q 12 H - cloNIDine HCl 0.1 mg tab(s) (CATAPRES) 0.1 mg ORAL TID OBJECTIVE PHYSICAL EXAM: Patient Vitals for the past 24 hrs: BP Temp Temp src Pulse Resp SpO2 04/16/19 0721 ? ? ? 61 12 98 % 04/16/19 0700 139/73 ? ? 65 12 96 % 04/16/19 0600 144/75 ? ? 64 10 97 % 04/16/19 0500 134/74 ? ? 65 16 97 % 04/16/19 0430 ? ? ? 66 15 96 % 04/16/19 0400 138/71 ? ? 64 11 96 % 04/16/19 0320 ? 36.9 ?C (98.4 ?F) Oral ? ? ? 04/16/19 0300 150/76 ? ? 64 14 96 % 04/16/19 0200 138/70 ? ? 64 16 95 % 04/16/19 0100 135/66 ? ? 68 12 90 % 04/16/19 0015 ? ? ? 66 14 95 % 04/16/19 0000 138/67 ? ? 65 20 92 % 04/15/19 2330 ? 36.8 ?C (98.3 ?F) Oral ? ? ? 04/15/19 2300 141/71 ? ? 68 14 94 % 04/15/19 2200 144/70 ? ? 69 20 93 % 04/15/19 2100 151/68 ? ? 84 20 97 % 04/15/19 2000 128/61 37.1 ?C (98.7 ?F) Oral 68 15 96 % 04/15/19 1900 134/71 ? ? 67 12 95 % 04/15/19 1845 ? ? ? 67 18 96 % 04/15/19 1800 135/68 ? ? 65 11 96 % 04/15/19 1700 140/72 ? ? 64 10 97 % 04/15/19 1600 140/72 ? ? 62 9 95 % 04/15/19 1539 ? 36.9 ?C (98.5 ?F) Oral ? ? 97 % 04/15/19 1500 137/65 ? ? 72 20 96 % 04/15/19 1450 ? 37.2 ?C (99 ?F) Oral ? ? 97 % 04/15/19 1400 134/75 ? ? 62 10 96 % 04/15/19 1300 124/71 ? ? 63 9 97 % 04/15/19 1200 127/69 ? ? 63 8 97 % 04/15/19 1100 130/68 ? ? 62 12 97 % 04/15/19 1000 104/59 ? ? 63 15 97 % Body mass index is 38.34 kg/m?. GENERAL: alert, calm, cooperative, no acute distress CARDIAC: Regular rate and rhythm, no murmur LUNGS: Clear to auscultation, O2 NC ABDOMEN: bowel sounds normoactive, abd distended, soft, nontender EXTREMITIES: Extremities no edema. NEURO: Awake, alert and oriented x 3 Recent Labs 04/16/19 0500 04/15/19 0627 04/14/19 0302 WBC 8.02 7.70 10.78 HB 12.2* 11.9* 12.0* HCT 37.5* 37.3* 37.2* PLT 211 189 170 NA -- 140 -- K -- 3.3* -- CHLOR -- 101 -- CO2 -- 27 -- CREAT -- 2.23* -- BUN -- 30* -- GLUC -- 70* -- P -- 3.8 -- TPROT 7.0 -- -- ALB 3.7* 3.6* -- CA -- 9.2 -- ALKPHOS 57 -- -- TBILI 0.2 -- -- AST 24 -- -- ALT 18 -- -- Glucose, Point of Care Date Value Ref Range Status 04/16/2019 109 (A) 74 - 99 mg/dL Final 04/15/2019 116 (A) 74 - 99 mg/dL Final 04/15/2019 135 (A) 74 - 99 mg/dL Final 04/15/2019 108 (A) 74 - 99 mg/dL Final 04/15/2019 90 74 - 99 mg/dL Final 04/14/2019 178 (A) 74 - 99 mg/dL Final 04/14/2019 100 (A) 74 - 99 mg/dL Final Cholesterol, Total Date Value Ref Range Status 12/01/2007 179 100 - 199 mg/dL Final HDL Cholesterol Date Value Ref Range Status 12/01/2007 30 (L) >45 mg/dL Final LDL Cholesterol Date Value Ref Range Status 12/01/2007 91 60 - 129 mg/dL Final Triglyceride Date Value Ref Range Status 12/01/2007 289 (H) 30 - 149 mg/dL Final SIGNATURE: Hannah Pryor CNP PHONE: 8:00 am to 4:30 PM Call/page Dr. Wheatley consulting sme for other times Normal [facility] Hepatic Functn Panelon 04-16 ALP [Catalytic activity/Vol] 57 U/L Normal 38-113 [facility] ALT [Catalytic activity/Vol] 18 U/L Normal 10-54 [facility] AST [Catalytic activity/Vol] 24 U/L Normal 14-40 [facility] Bilirubin [Mass/Vol] 0.2 mg/dL Normal 0.2-1.3 [facility] Bilirubin,Conjugated <0.2 Normal <0.2 [facility] Protein [Mass/Vol] 7.0 g/dL Normal 6.3-8.0 [facility] NURSING PROGon 04-16-2019 NURSING PROG HNO ID: [id number] Author: Gumaro MarvinRn) JERROD Andres Service: Nursing Author Type: Registered Nurse Type: Nursing Progress Note Filed: 04/16/2019 6:58 PM Note Text: Nursing Progress Note Patient Name: Chito Wells Patient Location: [place] [id number] Daily Note: 1600 Assess done, see flowsheet. Pt awake and oriented, complaining of a lot of back pain, requesting pain med, not due, will medicate when due, encouraged to relax, will cont to monitor. 1800 Pt medicated for pain. 1900 Pt resting quietly. This note was completed by: Gumaro Andres RN Normal [facility] NURSING PROG HNO ID: [id number] Author: Frank MarvinRn) JERROD Goodwin Service: Nursing Author Type: Registered Nurse Type: Nursing Progress Note Filed: 04/16/2019 1:50 PM Note Text: Nursing Progress Note Patient Name: Chito Wells Patient Location: [facility] Daily Note: 1000 Assessment done per flowsheet. VSS. Patient denies pain/sob. Will cont to monitor. 1100 Dr. Belcher @ bedside, orders placed. 1115 Nitro AND Heparin stopped. 1200 Assessment unchanged. 1305 Noted SBP in the 200s, repeat BP done and SBP still in the 200s, paged Dr. Garcia. 1309 Dr. Garcia notified of patient SBP, orders placed. 1325 Patient felt his BG was low, checked BG its 59, OJ and julia crackers given to patient. 1345 BG is 87 This note was completed by: FRANK GOODWIN RN [facility] NURSING PROG HNO ID: [id number] Author: Ginna (Rn) JERROD Shukla Service: Nursing Author Type: Registered Nurse Type: Nursing Progress Note Filed: 04/16/2019 5:46 AM Note Text: Nursing Progress Note Patient Name: Chito Wells Patient Location: [id number] Daily Note:2000 Assessment as per flowsheet. 2130 pharmacist here to talk with pt. 2200 pt sits on side of bed to urinate. 0015 Assessment as per flowsheet. 0200 resting quietly. 0430 Assessment as per flowsheet. This note was completed by: Ginna Shukla RN [facility] PROGRESSon 04-16-2019 PROGRESS HNO ID: [id number] Author: Binu Luciano Service: General Internal Medicine Author Type: Physician Type: Progress Notes Filed: 04/16/2019 7:53 PM Note Text: INTERNAL MEDICINE PROGRESS NOTE SERVICE DATE: 04/16/2019 ADMITTING PHYSICIAN: Samuel Belcher Jr. INTERVAL HISTORY OF PRESENT ILLNESS: Patient states he wants to go home. He had Mi and stroke in past and doesn't think he needs to be here if we are not doing any procedures. It was explained that took him off the heparin and nitro cardiology would like to observe him overnight. No sob. No CP. Current Facility-Administered Medications Medication Dose Route Frequency - hydrALAZINE 20 mg injection (APRESOLINE) 20 mg INTRAVENOUS q 6 H PRN - spironolactone 25 mg tab(s) (ALDACTONE) 25 mg ORAL BID - hydrALAZINE 25 mg tab(s) (APRESOLINE) 25 mg ORAL q 12 H - cloNIDine HCl 0.1 mg tab(s) (CATAPRES) 0.1 mg ORAL TID - insulin 70/30 insulin aspart prt/insulin aspart units/mL 100 Units injection (mixed intermediate and rapid acting) (NovoLOG MIX 70/30) 100 Units SUBCUTANEOUS BID w MEALS - insulin lispro 15 Units injection (rapid acting) (HumaLOG) 15 Units SUBCUTANEOUS w MEALS - insulin lispro injection (rapid acting) (HumaLOG) SUBCUTANEOUS AT BEDTIME - insulin lispro injection (rapid acting) (HumaLOG) SUBCUTANEOUS w MEALS - aspirin, enteric coated 81 mg tab(s) 81 mg ORAL DAILY - carvedilol 12.5 mg tab(s) (COREG) 12.5 mg ORAL BID w MEALS - perflutren lipid microspheres 1.1 mg/mL 1.3 mL injection (DEFINITY) 1.3 mL INTRAVENOUS DIRECTED PRN - dextrose 40 % 15 g 15 g ORAL PRN Or - glucagon 1 mg injection (GLUCAGEN) 1 mg INTRAMUSCULAR PRN Or - dextrose 50 % 12.5 g injection 12.5 g INTRAVENOUS PRN - amLODIPine 10 mg tab(s) (NORVASC) 10 mg ORAL DAILY - cyclobenzaprine 10 mg tab(s) (FLEXERIL) 10 mg ORAL TID PRN - diphenhydrAMINE 25 mg (BENADRYL) 25 mg ORAL q 6 H PRN - DULoxetine 30 mg cap(s) (CYMBALTA) 30 mg ORAL BID - famotidine 40 mg tab(s) (PEPCID) 40 mg ORAL DAILY - Fenofibrate 160 mg (LOFIBRA) 160 mg ORAL DAILY - fluticasone 50 mcg/actuation 1 [employer] (FLONASE) 1 [employer] EACH NOSTRIL DAILY - gabapentin (NEURONTIN) cap(s) 400 mg 400 mg ORAL QID - ipratropium-albuterol 3 mL nebulizer solution (DUONEB) 3 mL INHALATION q 4 H PRN - levETIRAcetam 250 mg tab(s) (KEPPRA) 250 mg ORAL BID - ondansetron 4 mg tab(s) (ZOFRAN) 4 mg ORAL q 6 H PRN - tamsulosin ER 0.4 mg cap(s) (FLOMAX) 0.4 mg ORAL DAILY - traZODone (DESYREL) tab(s) 150 mg 150 mg ORAL DAILY - doxycycline hyclate 100 mg cap(s) (VIBRAMYCIN) 100 mg ORAL BID - morphine SR 15 mg tab(s) (MS CONTIN, ORAMORPH SR) 15 mg ORAL q NOON - oxyCODONE IR 10 mg tab(s) (ROXICODONE) 10 mg ORAL q 12 H 6a/6p - HYDROmorphone 1 mg injection (DILAUDID) 1 mg INTRAVENOUS q 12 H PRN Objective PHYSICAL EXAM: Patient Vitals for the past 24 hrs: BP Temp Temp src Pulse Resp SpO2 04/16/19 1305 (!) 201/94 ? ? 60 12 99 % 04/16/19 1300 (!) 222/95 ? ? 61 12 ? 04/16/19 1200 160/76 ? ? 60 10 93 % 04/16/19 1100 162/79 ? ? 63 8 96 % 04/16/19 1000 151/75 ? ? 66 11 93 % 04/16/19 0900 148/72 ? ? 62 25 97 % 04/16/19 0800 142/70 ? ? 61 9 97 % 04/16/19 0721 ? ? ? 61 12 98 % 04/16/19 0700 139/73 ? ? 65 12 96 % 04/16/19 0600 144/75 ? ? 64 10 97 % 04/16/19 0500 134/74 ? ? 65 16 97 % 04/16/19 0430 ? ? ? 66 15 96 % 04/16/19 0400 138/71 ? ? 64 11 96 % 04/16/19 0320 ? 36.9 ?C (98.4 ?F) Oral ? ? ? 04/16/19 0300 150/76 ? ? 64 14 96 % 04/16/19 0200 138/70 ? ? 64 16 95 % 04/16/19 0100 135/66 ? ? 68 12 90 % 04/16/19 0015 ? ? ? 66 14 95 % 04/16/19 0000 138/67 ? ? 65 20 92 % 04/15/19 2330 ? 36.8 ?C (98.3 ?F) Oral ? ? ? 04/15/19 2300 141/71 ? ? 68 14 94 % 04/15/19 2200 144/70 ? ? 69 20 93 % 04/15/19 2100 151/68 ? ? 84 20 97 % 04/15/19 2000 128/61 37.1 ?C (98.7 ?F) Oral 68 15 96 % 04/15/19 1900 134/71 ? ? 67 12 95 % 04/15/19 1845 ? ? ? 67 18 96 % 04/15/19 1800 135/68 ? ? 65 11 96 % 04/15/19 1700 140/72 ? ? 64 10 97 % 04/15/19 1600 140/72 ? ? 62 9 95 % 04/15/19 1539 ? 36.9 ?C (98.5 ?F) Oral ? ? 97 % 04/15/19 1500 137/65 ? ? 72 20 96 % 04/15/19 1450 ? 37.2 ?C (99 ?F) Oral ? ? 97 % Body mass index is 38.34 kg/m?. GENERAL: Alert, awake SKIN: Skin color, texture, turgor normal. No rashes or lesions. OROPHARYNX: Lips, mucosa, and tongue are normal.Teeth and gums, normal. Oropharynx normal. NECK: No jugulovenous distention, Supple LUNGS: CTA CARDIAC: Normal S1 and S2; no rubs, murmurs, or gallops ABDOMEN: Soft, nontender EXTREMITIES: No ulcers NEURO: Cranial nerves II-XII intact PULSES: 2+ radial, 2+ dorsalis pedis DATA: Diagnostic tests reviewed for today's visit: Most recent labs and imaging results. Assessment/Plan Active Problems: ??Myocardial infarct (HCC) POA: Yes ?Assessment AND?Plan: asa D/c Heparin gtt and nitro drip per cardio keep on unit overnight Admitted to ccu , stress test - ASA, statin, BB ? CKD 3 * nephrology eval - low dye usage for cardiac cath ? Uncontrolled dm with possible nephropathy * Endo and nephro eval - Monitor CR - ssi ? Abnormal weight loss/Nausea, vomiting * GI workup when cardiac issues resolve - hepatitis - neg - f/u out pt with Dr. Bui ? HTN - Uncontrolled, Monitor - BB, clonidine, hydralizine ? HLP - statin ? Chronic Backache - pain control? ? Abnormal LFT's * GI eval - possibly due to mi - AST trending down ? Seizure disorder - cont keppra - seizure precautions ? Plan of care disussed with Dr. Mustapha Henry, INDUSTRIAL ENGINEERING MANAGER.CIGAR INSPECTOR April 16, 2019 2:42 PM ?Attending: Reviewed, discussed with CIGAR INSPECTOR. Meds, notes, orders reviewed. Agree with jarrell history, findings and plan. Discussed with consultants. Binu Luciano MD [facility] PROGRESS HNO ID: [id number] Author: Lauro Garcia Service: Nephrology Author Type: Physician Type: Progress Notes Filed: 04/16/2019 1:14 PM Note Text: RENAL PROGRESS NOTE April 16, 2019 12:45 PM We follow the patient for stage 3 CKD with DM, RVD nsaid use, obesity, HTN and history of smoking. Admitted for NSTEMI. Impression and Plan 1. TK on top of stage 3 CKD. Has proteinuria. 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 GFR is improving. 2. HTN. He is on amlodipine 10 mg daily, carvedilol 12.5 mg bid, clonidine 0.1 mg tid, hydralazine 25 mg q 12 hours. Diuretics were discontinued. Will resume spironolactone due to rising bp and low k. monitor GFR and volume status closely. Adding prn hydralazine. 3. Hypokalemia. Will replace. Resuming spironolactone. Interval History Patient denies sob. No nausea. Able to eat and drink. No discomfort. There were concerns about polypharmacy causing TK and low bp slow HR. ROS - no vomiting. No diarrhea. No trouble passing urine. 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 - Other and unspecified hyperlipidemia - Spinal stenosis in cervical region - Type II or unspecified type diabetes mellitus without mention of complication, uncontrolled (HCC) since 2000 - Unspecified essential hypertension since 1998 Objective 04/16/19 0900 04/16/19 1000 04/16/19 1100 04/16/19 1200 BP: 148/72 151/75 162/79 160/76 Pulse: 62 66 63 60 Resp: 25 11 8 10 Temp: TempSrc: SpO2: 97% 93% 96% 93% Weight: Height: Awake, alert, not in distress, obese. Anicteric sclerae, no JVD, no goiter Breath sounds are clear to auscultation, no wheezing, no rales. Regular heart rate, no rub Abdomen is soft and non-tender. No bladder fullness. No pitting edema Skin turgor is normal. Thoughts are organized. Symmetric movement of all four extremities; no facial asymmetry Labs Results for CHITO WELLS ( ) as of 04/16/2019 12:47 Ref. Range 04/16/2019 05:00 04/16/2019 11:45 Sodium Latest Ref Range: 136 - 144 mmol/L 141 Potassium Latest Ref Range: 3.7 - 5.1 mmol/L 3.4 (L) Chloride Latest Ref Range: 97 - 105 mmol/L 100 CO2 Latest Ref Range: 22 - 33 mmol/L 29 BUN Latest Ref Range: 9 - 24 mg/dL 23 Creatinine Latest Ref Range: 0.73 - 1.22 mg/dL 1.92 (H) Glucose Latest Ref Range: 74 - 99 mg/dL 64 (L) Protein, Total Latest Ref Range: 6.3 - 8.0 g/dL 7.0 Calcium Latest Ref Range: 8.5 - 10.2 mg/dL 9.2 Phosphorus Latest Ref Range: 2.7 - 4.8 mg/dL 2.4 (L) Albumin Latest Ref Range: 3.9 - 4.9 g/dL 3.7 (L) 3.7 (L) Results for RUSSELL CHITO R ( ) as of 04/16/2019 12:47 Ref. Range 04/16/2019 05:00 WBC Latest Ref Range: 3.70 - 11.00 k/uL 8.02 RBC Latest Ref Range: 4.20 - 6.00 m/uL 4.43 Hemoglobin Latest Ref Range: 13.0 - 17.0 g/dL 12.2 (L) Hematocrit Latest Ref Range: 39.0 - 51.0 % 37.5 (L) Platelet Count Latest Ref Range: 150 - 400 k/uL 211 Lauro Garcia MD, [employer], [facility]. Pager [phone] - Please include all 7 digits of your contact phone number. Normal [facility] Renal Function Panelon 04-16 Albumin [Mass/Vol] 3.7 g/dL Low 3.9-4.9 [facility] Anion gap [Moles/Vol] 12 mmol/L Normal 9-18 [facility] Calcium [Mass/Vol] 9.2 mg/dL Normal 8.5-10.2 [facility] Chloride [Moles/Vol] 100 mmol/L Normal 97-105 [facility] CO2 [Moles/Vol] 29 mmol/L Normal 22-33 [facility] Creatinine [Mass/Vol] 1.92 mg/dL High 0.73-1.22 [facility] Glucose [Mass/Vol] 64 mg/dL Low 74-99 [facility] Phosphate [Mass/Vol] 2.4 mg/dL Low 2.7-4.8 [facility] Potassium [Moles/Vol] 3.4 mmol/L Low 3.7-5.1 [facility] Sodium [Moles/Vol] 141 mmol/L Normal 136-144 [facility] Urea nitrogen [Mass/Vol] 23 mg/dL Normal 9-24 [facility] APTTon 04-15-2019 aPTT Coag (Bld) [Time] 55.7 s High 23.0-32.4 [facility] Comment on above: Result Comment: Unfr actionated Heparin Therapeutic Ranges: Standard Heparin Nomogram: 53 to 78 seconds (anti-Xa level of 0.3 to 0.7 U/ml) Low Dose/ACS Nomogram: 49 to 67 seconds (anti-Xa level of 0.2 to 0.5 U/ml) Stroke Treatment Nomogram: 49 to 67 seconds (anti-Xa level of 0.2 to 0.5 U/ml) Note: The APTT therapeutic range has been determined for the current lot of laboratory APTT reagent in use throughout the [facility]. aPTT Coag (Bld) [Time] 63.6 s High 23.0-32.4 [facility] Comment on above: Result Comment: Unfr actionated Heparin Therapeutic Ranges: Standard Heparin Nomogram: 53 to 78 seconds (anti-Xa level of 0.3 to 0.7 U/ml) Low Dose/ACS Nomogram: 49 to 67 seconds (anti-Xa level of 0.2 to 0.5 U/ml) Stroke Treatment Nomogram: 49 to 67 seconds (anti-Xa level of 0.2 to 0.5 U/ml) Note: The APTT therapeutic range has been determined for the current lot of laboratory APTT reagent in use throughout the [facility]. aPTT Coag (Bld) [Time] 43.2 s High 23.0-32.4 [facility] Comment on above: Result Comment: Unfr actionated Heparin Therapeutic Ranges: Standard Heparin Nomogram: 53 to 78 seconds (anti-Xa level of 0.3 to 0.7 U/ml) Low Dose/ACS Nomogram: 49 to 67 seconds (anti-Xa level of 0.2 to 0.5 U/ml) Stroke Treatment Nomogram: 49 to 67 seconds (anti-Xa level of 0.2 to 0.5 U/ml) Note: The APTT therapeutic range has been determined for the current lot of laboratory APTT reagent in use throughout the [facility]. aPTT Coag (Bld) [Time] 55.0 s High 23.0-32.4 [facility] Comment on above: Result Comment: Unfr actionated Heparin Therapeutic Ranges: Standard Heparin Nomogram: 53 to 78 seconds (anti-Xa level of 0.3 to 0.7 U/ml) Low Dose/ACS Nomogram: 49 to 67 seconds (anti-Xa level of 0.2 to 0.5 U/ml) Stroke Treatment Nomogram: 49 to 67 seconds (anti-Xa level of 0.2 to 0.5 U/ml) Note: The APTT therapeutic range has been determined for the current lot of laboratory APTT reagent in use throughout the [facility]. [facility] CASE MANAGEM HNO ID: [id number] Author: Megan (Rn) JERROD Garrido Service: Care Management Author Type: Registered Nurse Type: Care Mgt Progress Note Filed: 04/15/2019 10:51 AM Note Text: CARE MANAGEMENT PROGRESS NOTE SERVICE DATE: April 15, 2019 SERVICE TIME: 10:51 AM LOS: 3 days Patient for stress test today it is noted he resides at [facility] Referral sent will follow SIGNATURE: Megan Garrido RN PATIENT NAME: Chito Wells DATE: April 15, 2019 TIME: 10:51 AM PAGER/CONTACT #: [phone] Normal [facility] CBCon 04-15-2019 Absolute nRBC <0.01 Normal <0.01 [facility] Erythrocyte distribution width (RBC) [Ratio] 12.9 % Normal 11.5-15.0 [facility] Hematocrit (Bld) [Volume fraction] 37.3 % Low 39.0-51.0 [facility] Hemoglobin (Bld) [Mass/Vol] 11.9 g/dL Low 13.0-17.0 [facility] MCH (RBC) [Entitic mass] 27.3 pG Normal 26.0-34.0 [facility] MCHC (RBC) [Mass/Vol] 31.9 g/dL Normal 30.5-36.0 [facility] MCV (RBC) [Entitic vol] 85.6 fL Normal 80.0-100.0 [facility] Platelet mean volume (Bld) [Entitic vol] 9.3 fL Normal 9.0-12.7 [facility] Platelets (Bld) [#/Vol] 189 10*3/uL Normal 150-400 [facility] RBC (Bld) [#/Vol] 4.36 10*6/uL Normal 4.20-6.00 [facility] WBC (Bld) [#/Vol] 7.70 10*3/uL Normal 3.70-11.00 [facility] CONSULTon 04-15-2019 CONSULT HNO ID: [id number] Author: Binu Luciano Service: General Internal Medicine Author Type: Physician Type: Consults Filed: 04/15/2019 8:11 PM Note Text: INTERNAL MEDICINE PROGRESS NOTE SERVICE DATE: 04/15/2019 ADMITTING PHYSICIAN: Samuel Belcher Jr. INTERVAL HISTORY OF PRESENT ILLNESS: Patient resting in bed. He states he could not lay flat on table fro stress test. No sob. No CP. Current Facility-Administered Medications Medication Dose Route Frequency - regadenoson 0.4 mg injection (LEXISCAN) 0.4 mg INTRAVENOUS ONCE - insulin 70/30 insulin aspart prt/insulin aspart units/mL 100 Units injection (mixed intermediate and rapid acting) (NovoLOG MIX 70/30) 100 Units SUBCUTANEOUS BID w MEALS - insulin lispro 15 Units injection (rapid acting) (HumaLOG) 15 Units SUBCUTANEOUS w MEALS - insulin lispro injection (rapid acting) (HumaLOG) SUBCUTANEOUS AT BEDTIME - insulin lispro injection (rapid acting) (HumaLOG) SUBCUTANEOUS w MEALS - aspirin, enteric coated 81 mg tab(s) 81 mg ORAL DAILY - carvedilol 12.5 mg tab(s) (COREG) 12.5 mg ORAL BID w MEALS - perflutren lipid microspheres 1.1 mg/mL 1.3 mL injection (DEFINITY) 1.3 mL INTRAVENOUS DIRECTED PRN - heparin iv infusion (LOW DOSE ACS/NOMOGRAM) 25,000 units in NaCl 0.45% 250 mL PREMIX 0-3,000 Units/hr INTRAVENOUS CONTINUOUS And - heparin RATE CHANGE bolus 1,000-4,000 Units for subtherapeutic aptt results 1,000-4,000 Units INTRAVENOUS PRN - nitroglycerin 50 mg in D5W 250 mL 5-200 mcg/min INTRAVENOUS CONTINUOUS - dextrose 40 % 15 g 15 g ORAL PRN Or - glucagon 1 mg injection (GLUCAGEN) 1 mg INTRAMUSCULAR PRN Or - dextrose 50 % 12.5 g injection 12.5 g INTRAVENOUS PRN - hydrALAZINE 50 mg tab(s) (APRESOLINE) 50 mg ORAL q 12 H - amLODIPine 10 mg tab(s) (NORVASC) 10 mg ORAL DAILY - cloNIDine HCl 0.2 mg tab(s) (CATAPRES) 0.2 mg ORAL TID - cyclobenzaprine 10 mg tab(s) (FLEXERIL) 10 mg ORAL TID PRN - diphenhydrAMINE 25 mg (BENADRYL) 25 mg ORAL q 6 H PRN - DULoxetine 30 mg cap(s) (CYMBALTA) 30 mg ORAL BID - famotidine 40 mg tab(s) (PEPCID) 40 mg ORAL DAILY - Fenofibrate 160 mg (LOFIBRA) 160 mg ORAL DAILY - fluticasone 50 mcg/actuation 1 [employer] (FLONASE) 1 [employer] EACH NOSTRIL DAILY - gabapentin (NEURONTIN) cap(s) 400 mg 400 mg ORAL QID - ipratropium-albuterol 3 mL nebulizer solution (DUONEB) 3 mL INHALATION q 4 H PRN - levETIRAcetam 250 mg tab(s) (KEPPRA) 250 mg ORAL BID - ondansetron 4 mg tab(s) (ZOFRAN) 4 mg ORAL q 6 H PRN - spironolactone 25 mg tab(s) (ALDACTONE) 25 mg ORAL BID - tamsulosin ER 0.4 mg cap(s) (FLOMAX) 0.4 mg ORAL DAILY - torsemide 40 mg tab(s) (DEMADEX) 40 mg ORAL DAILY - traZODone (DESYREL) tab(s) 150 mg 150 mg ORAL DAILY - doxycycline hyclate 100 mg cap(s) (VIBRAMYCIN) 100 mg ORAL BID - morphine SR 15 mg tab(s) (MS CONTIN, ORAMORPH SR) 15 mg ORAL q NOON - oxyCODONE IR 10 mg tab(s) (ROXICODONE) 10 mg ORAL q 12 H 6a/6p - HYDROmorphone 1 mg injection (DILAUDID) 1 mg INTRAVENOUS q 12 H PRN Objective PHYSICAL EXAM: Patient Vitals for the past 24 hrs: BP Temp Temp src Pulse Resp SpO2 04/15/19 1000 104/59 ? ? 63 15 97 % 04/15/19 0900 136/71 ? ? 66 7 99 % 04/15/19 0800 124/65 ? ? 66 10 97 % 04/15/19 0744 ? 36.5 ?C (97.7 ?F) Oral ? ? 97 % 04/15/19 0700 131/68 ? ? 66 10 96 % 04/15/19 0600 129/67 ? ? 64 12 97 % 04/15/19 0500 124/66 ? ? 64 14 98 % 04/15/19 0400 120/63 36.9 ?C (98.4 ?F) Oral 64 14 96 % 04/15/19 0300 115/64 ? ? 63 14 97 % 04/15/19 0200 120/64 ? ? 63 14 98 % 04/15/19 0100 112/63 ? ? 63 13 97 % 04/15/19 0000 109/56 37.2 ?C (99 ?F) ? 63 18 97 % 04/14/19 2300 130/66 37.2 ?C (98.9 ?F) Oral 63 17 97 % 04/14/19 2200 104/72 ? ? 69 19 97 % 04/14/19 2100 141/77 ? ? 82 20 98 % 04/14/19 2000 121/66 ? ? 68 18 96 % 04/14/19 1900 130/72 37 ?C (98.6 ?F) Oral 66 13 100 % 04/14/19 1800 117/67 ? ? 63 11 98 % 04/14/19 1700 115/66 ? ? 64 13 98 % 04/14/19 1600 115/65 ? ? 63 11 95 % 04/14/19 1500 119/73 ? ? 64 13 95 % 04/14/19 1400 123/71 ? ? 63 10 94 % 04/14/19 1304 ? 37.2 ?C (99 ?F) Oral ? ? 92 % 04/14/19 1300 125/72 ? ? 63 13 94 % 04/14/19 1200 126/69 ? ? 63 9 91 % Body mass index is 38.34 kg/m?. GENERAL: Alert, Cooperative SKIN: No rashes OROPHARYNX: Lips, mucosa, and tongue are normal.Teeth and gums, normal. Oropharynx normal. NECK: No jugulovenous distention, Supple LUNGS: Diminshed CARDIAC: Normal S1 and S2; no rubs, murmurs, or gallops ABDOMEN: Soft, nontender EXTREMITIES: No ulcers NEURO: Cranial nerves II-XII intact PULSES: 2+ dorsalis pedis DATA: Diagnostic tests reviewed for today's visit: Most recent labs and imaging results. Assessment/Plan Active Problems: Active Problems: Myocardial infarct (HCC) POA: Yes Assessment AND Plan: asa Heparin gtt and nitro drip per cardio Admitted to ccu , stress test ? CKD 3 * nephrology eval - low dye usage for cardiac cath ? Uncontrolled dm with possible nephropathy * Endo and nephro eval - Monitor CR - Reordered home insulin doses, and ssi Abnormal weight loss/Nausea, vomiting * GI workup when cardiac issues resolve - hepatitis - neg ? HTN - Uncontrolled, Monitor - On nitro drip ? HLP Check lipid panel ? Chronic Backache - pain control? ? Abnormal LFT's - possibly due to mi - Recheck Seizure disorder - cont keppra - seizure precautions Plan of care disussed with Dr. Mustapha Henry, INDUSTRIAL ENGINEERING MANAGER.CIGAR INSPECTOR April 15, 2019 2:28 PM Attending: Reviewed, discussed with CIGAR INSPECTOR. Meds, notes, orders reviewed. Agree with jarrell history, findings and plan. Discussed with consultants. Binu Luciano MD [facility] CONSULT PROGon 04-15-2019 CONSULT PROG HNO ID: [id number] Author: Samuel Belcher Jr. Service: Cardiovascular Disease Author Type: Physician Type: Consult Progress Note Filed: 04/15/2019 4:47 PM Note Text: General: Well nourished and in no acute distress. BP 134/75 Pulse 62 Temp 36.9 ?C (98.5 ?F) (Oral) Resp 10 Ht 180.3 cm (5' 11) Wt 124.7 kg (274 lb 14.6 oz) SpO2 97% BMI 38.34 kg/m? Skin warm and dry. Head atraumatic and normocephalic. Eyes anicteric w/o conjunctival injection. Oral mucosa moist. Psychiatric: Normal mood and affect. Neurologic: Moves all extremities. Alert . No facial asymmetry. Speech fluent. Pulmonary: Good air movement without adventitious sounds. Cardiac: JVD or HJR: Not present at 45 degrees. No gallop, click or rub. PMI not palpable. Carotids 2+ w/o bruit. Murmur: none Pedal Edema: present GI: Abdomen soft and nontender w/o palpable organomegally. Musculoskeletal: No gross amputations. Couldn't lie flat for stress Med tx [facility] CONSULT PROG HNO ID: [id number] Author: Marisela Figueroa Service: Gastroenterology Author Type: Nurse Practitioner Type: Consult Progress Note Filed: 04/15/2019 2:50 PM Note Text: CONSULT GI PROGRESS NOTES PATIENT NAME: Chito Wells SERVICE DATE: 04/15/2019 SERVICE TIME: 12:08 PM CONSULTING SERVICE: GI ASSESSMENT AND PLAN - In collaboration with Dr. Bui AST elevation in setting of acute GA -- Likely myocardial in etiology -- HBVsAg AND HCV-Ab both negative -- AST trending down -- Doubt acute liver or biliary source Abnormal weight loss with nausea and vomiting -- continue Pepcid daily -- Eventual GI workup but will defer for now given cardiac issues. Acute GA -- declined stress test today GI will follow peripherally. OK to follow up as outpatient with Dr. Bui SUBJECTIVE INTERVAL HPI: No further nausea or vomiting. No abd pain. OBJECTIVE BP 104/59 Pulse 63 Temp (Src) 97.7 (Oral) Resp 15 Ht 5' 11 (1.80m) Wt 274 lb 14.6 oz (124.7kg) SpO2 97% BMI 38.36 kg/(m2). O2 Therapy: Nasal Cannula, Liters: 4 PHYSICAL EXAM: GENERAL: in NAD SKIN: Skin warm, dry, pink NEURO: Alert, Oriented x 3 ABDOMEN: Abdomen soft, non-distended, non-tender DATA: Diagnostic tests reviewed for today's visit: CBC, Coags, BMP, Mg, Phos Recent Labs 04/15/19 0627 04/14/19 2348 04/14/19 1704 04/14/19 0302 04/13/19 0355 04/12/19 1728 WBC 7.70 -- -- -- 10.78 -- 9.61 -- -- HB 11.9* -- -- -- 12.0* -- 14.6 -- -- HCT 37.3* -- -- -- 37.2* -- 44.4 -- -- PLT 189 -- -- -- 170 -- 176 -- -- INR -- -- -- -- -- -- -- -- 1.0 APTT 43.2* 55.0* 44.2* < > 46.3* < > -- < > -- NA 140 -- -- -- -- -- 136 -- -- K 3.3* -- -- -- -- -- 4.3 -- -- CHLOR 101 -- -- -- -- -- 96* -- -- CO2 27 -- -- -- -- -- 21* -- -- BUN 30* -- -- -- -- -- 20 -- -- CREAT 2.23* -- -- -- -- -- 1.59* -- -- GLUC 70* -- -- -- -- -- 147* -- -- CA 9.2 -- -- -- -- -- 9.3 -- -- P 3.8 -- -- -- -- -- -- -- -- < > = values in this interval not displayed. Liver Function, Amylase, AND Lipase Recent Labs 04/15/19 0627 04/13/19 0355 ALB 3.6* -- AST -- 99* SIGNATURE: Marisela Figueroa APRN.CIGAR INSPECTOR DATE: April 15, 2019 TIME: 12:08 PM [facility] CONSULT PROG HNO ID: [id number] Author: Kylie Arauz (Cns) Service: Endocrinology Author Type: Nurse Practitioner Type: Consult Progress Note Filed: 04/15/2019 11:18 AM Note Text: ENDOCRINOLOGY FOLLOW UP VISIT PATIENT NAME: Chito Wells SERVICE DATE: 04/15/2019 SERVICE TIME: 11:18 AM Impression: Some elements of this note were copied from my note from 04/14/2019, and have been updated where appropriate. All elements reflect current MDM from today, 04/15/19 . ASSESSMENT Mr. Wells is a 53 year old male being seen by Endocrinology for DM Type 2. Blood glucose is good at this time. Patient has been NPO for procedure We have been consulted for glycemic control. He was not seen today as he was off the unit at the procedure. ? ? IMPRESSION/RECOMMENDATIONS ? PLAN: ? Continue Basal Insulin: Novolog Mix 70/30 100units BID AC (breakfast AND dinner) ? Continue Prandial Insulin: Humalog 15 Units TID AC ? Continue Supplemental Sliding Scale: Humalog Scale #3 ACHS ? Accuchecks ACHS ? Oral agents: none at this time ? Other pertinent medication/labs: A1C 7.4% ? Interval HPI: is a 53 year old male presenting with DM Type 2. He was admitted for NSTEMI on 04/12/2019. ? ALLERGIES Allergen Reactions - Haldol [Haloperidol* Mental Status Change - Vicodin [Hydrocodon* Vomiting tolerates MEDICATIONS: Current Facility-Administered Medications Medication Dose Route Frequency - aspirin, enteric coated 81 mg tab(s) 81 mg ORAL DAILY - carvedilol 12.5 mg tab(s) (COREG) 12.5 mg ORAL BID w MEALS - perflutren lipid microspheres 1.1 mg/mL 1.3 mL injection (DEFINITY) 1.3 mL INTRAVENOUS DIRECTED PRN - heparin iv infusion (LOW DOSE ACS/NOMOGRAM) 25,000 units in NaCl 0.45% 250 mL PREMIX 0-3,000 Units/hr INTRAVENOUS CONTINUOUS And - heparin RATE CHANGE bolus 1,000-4,000 Units for subtherapeutic aptt results 1,000-4,000 Units INTRAVENOUS PRN - nitroglycerin 50 mg in D5W 250 mL 5-200 mcg/min INTRAVENOUS CONTINUOUS - dextrose 40 % 15 g 15 g ORAL PRN Or - glucagon 1 mg injection (GLUCAGEN) 1 mg INTRAMUSCULAR PRN Or - dextrose 50 % 12.5 g injection 12.5 g INTRAVENOUS PRN - hydrALAZINE 50 mg tab(s) (APRESOLINE) 50 mg ORAL q 12 H - amLODIPine 10 mg tab(s) (NORVASC) 10 mg ORAL DAILY - cloNIDine HCl 0.2 mg tab(s) (CATAPRES) 0.2 mg ORAL TID - cyclobenzaprine 10 mg tab(s) (FLEXERIL) 10 mg ORAL TID PRN - diphenhydrAMINE 25 mg (BENADRYL) 25 mg ORAL q 6 H PRN - DULoxetine 30 mg cap(s) (CYMBALTA) 30 mg ORAL BID - famotidine 40 mg tab(s) (PEPCID) 40 mg ORAL DAILY - Fenofibrate 160 mg (LOFIBRA) 160 mg ORAL DAILY - fluticasone 50 mcg/actuation 1 [employer] (FLONASE) 1 [employer] EACH NOSTRIL DAILY - gabapentin (NEURONTIN) cap(s) 400 mg 400 mg ORAL QID - ipratropium-albuterol 3 mL nebulizer solution (DUONEB) 3 mL INHALATION q 4 H PRN - levETIRAcetam 250 mg tab(s) (KEPPRA) 250 mg ORAL BID - ondansetron 4 mg tab(s) (ZOFRAN) 4 mg ORAL q 6 H PRN - spironolactone 25 mg tab(s) (ALDACTONE) 25 mg ORAL BID - tamsulosin ER 0.4 mg cap(s) (FLOMAX) 0.4 mg ORAL DAILY - torsemide 40 mg tab(s) (DEMADEX) 40 mg ORAL DAILY - traZODone (DESYREL) tab(s) 150 mg 150 mg ORAL DAILY - doxycycline hyclate 100 mg cap(s) (VIBRAMYCIN) 100 mg ORAL BID - morphine SR 15 mg tab(s) (MS CONTIN, ORAMORPH SR) 15 mg ORAL q NOON - oxyCODONE IR 10 mg tab(s) (ROXICODONE) 10 mg ORAL q 12 H 6a/6p - HYDROmorphone 1 mg injection (DILAUDID) 1 mg INTRAVENOUS q 12 H PRN - insulin 70/30 insulin aspart prt/insulin aspart units/mL 100 Units injection (mixed intermediate and rapid acting) (NovoLOG MIX 70/30) 100 Units SUBCUTANEOUS BID w MEALS - insulin lispro 15 Units injection (rapid acting) (HumaLOG) 15 Units SUBCUTANEOUS w MEALS - insulin lispro injection (rapid acting) (HumaLOG) SUBCUTANEOUS AT BEDTIME - insulin lispro injection (rapid acting) (HumaLOG) SUBCUTANEOUS w MEALS - regadenoson 0.4 mg injection (LEXISCAN) 0.4 mg INTRAVENOUS ONCE DATA: Diagnostic tests reviewed for today's visit: Pertainent lab results and dx test Recent Labs 04/15/19 0627 04/14/19 0302 04/13/19 0355 04/12/19 1122 WBC 7.70 10.78 9.61 11.44* HB 11.9* 12.0* 14.6 16.3 HCT 37.3* 37.2* 44.4 48.4 PLT 189 170 176 221 NA 140 -- 136 139 K 3.3* -- 4.3 3.8 CHLOR 101 -- 96* 96* CO2 27 -- 21* 29 CREAT 2.23* -- 1.59* 1.60* BUN 30* -- 20 17 GLUC 70* -- 147* 133* P 3.8 -- -- -- TPROT -- -- -- 7.6 ALB 3.6* -- -- 4.5 CA 9.2 -- 9.3 10.0 ALKPHOS -- -- -- 70 TBILI -- -- -- 0.3 AST -- -- 99* 133* ALT -- -- -- 39 HBA1C -- -- 7.4* -- Glucose, Point of Care Date Value Ref Range Status 04/15/2019 90 74 - 99 mg/dL Final 04/14/2019 178 (A) 74 - 99 mg/dL Final 04/14/2019 100 (A) 74 - 99 mg/dL Final 04/14/2019 189 (A) 74 - 99 mg/dL Final 04/14/2019 265 (A) 74 - 99 mg/dL Final 04/13/2019 147 (A) 74 - 99 mg/dL Final 04/13/2019 85 74 - 99 mg/dL Final Cholesterol, Total Date Value Ref Range Status 12/01/2007 179 100 - 199 mg/dL Final HDL Cholesterol Date Value Ref Range Status 12/01/2007 30 (L) >45 mg/dL Final LDL Cholesterol Date Value Ref Range Status 12/01/2007 91 60 - 129 mg/dL Final Triglyceride Date Value Ref Range Status 12/01/2007 289 (H) 30 - 149 mg/dL Final Kylie Arauz, INDUSTRIAL ENGINEERING MANAGER.[facility] [place] Inspector Endocrine and Metabolism [place] Pager [phone] Covering DCT/Endo service today until [address] Wheatley after 4 PM Normal [facility] NUTRITIONon 04-15-2019 NUTRITION HNO ID: [id number] Author: Maria Esther Gerber Service: Nutrition Therapy Author Type: Registered Dietitian Type: Nutrition Filed: 04/15/2019 3:24 PM Note Text: NUTRITION THERAPY INITIAL ASSESSMENT SERVICE DATE: 04/15/2019 SERVICE TIME: 3:00 PM Nutrition Assessment: Recommended Malnutrition Diagnosis: Mild Protein-Calorie Malnutrition In the context of: Chronic Illness or Injury Based on: Insufficient Energy Intake Nutrition Diagnosis: Problem: Suboptimal oral intake Related to: Change in GI tract motility As evidenced by: Vomiting;Nausea;Patient/fami ly self-report;Weight loss Estimated kilocalorie needs: ~0947-4728 kcal Calorie Calculation Method: 10-15 kcals/kg(12-15 kcal/kg) Estimated protein needs (grams): ~90+g protein Grams protein determined by: Watkins Body Weight(1.2+g protein/kg IBW) Care Plan: Change diet to Advance diet as tolerated to Carb Controlled, Heart Healthy, 2g Na - pt declined oral nutritional supplements at this time Monitor and Evaluation: Monitor fluid/electrolyte balance;Monitor labs, I/Os, vital signs, weight Discharge Recommendations: Diet Diet: TBD HPI: Pt with PMH DM, HTN, Chronic Back pain, Drug abuse, adm with epigastric pain. Found to have NSTEMI and was to have stress test today but was unable to lay flat. GI on consult for n/v x 4-5 months with associated weight loss. Intake History: Nutrition Intake Prior to Admission: Less than 75% estimated energy needs greater than or equal to 1 month Current Intake: Greater than 75% estimated energy needs over: 3 days - Met with pt at bedside. Pt states he currently does not feel well - nausea, headache, etc. Has not had much to eat today so could be related to blood sugars. Pt states PS[employer] for ~ 6 weeks he was having n/v. Liquids were just as difficult to tolerate as solids. Did not vomit after each time he ate, was very hard to predict what he could/couldn't eat. States he has lost 100# over the past year as a result but per records, closer to 10# x 3 months, 30-40# over the past 2 years. Pt states since he has been here, has been able to tolerate everything and has been eating well. States he has been eating healthy and has been eating more than he has in the past several months. Declined supplements - only request was to ask for pain medication to be adjusted from Dilaudid every 12 hrs to Dilaudid every 8 hrs. Discussed with RN. Current Diet: DIET NPO Anthropometrics: Height: 180.3 cm (5' 11) Weight: 124.7 kg (274 lb 14.6 oz) Dosing Weight: 124.7 kg (274 lb 14.6 oz) Usual Weight: 142.9 kg (315 lb) Body mass index is 38.34 kg/m?. Morbidly Obese Weight change percentage over time: weight of 285# 12/2018 (3.9% loss x 3 months), 315# 07/2017 (13% loss x 1.5 years) - neither are clinically significant; Pt is reporting 100# loss over the past year but do not see evidence of this in the medical record Physical Exam: Subcutaneous fat loss: No fat loss Muscle loss: No muscle loss Potential micronutrient deficiency: No deficiency identified Edema/Ascites: Lower extremities Lower Extermity: Non-pitting GI Symptoms: Nausea;Vomiting Functional Status: Unable to assess Potential Signs of Inflammation: Chronic condition SIGNATURE: Maria Esther Gerber, MS, RD, LD, CNSC PATIENT NAME: Chito Wells DATE: April 15, 2019 TIME: 3:20 PM PAGER: [phone] [facility] PROCEDUREon 04-15-2019 PROCEDURE HNO ID: [id number] Author: Warner Montalvo Service: Critical Care Author Type: Nurse Practitioner Type: Procedures Filed: 04/14/2019 10:42 PM Note Text: Critical Care Meeting Coordinator Venous Access Called for difficult venous access. Prior attempts by nursing staff and/or linseed oil temperer were unsuccessful. Patient requires advanced skills for IV start and/or laboratory specimen collection due to: Multiple failed IV attempts The right forearm. vein was accessed using ultrasound: Yes, Image in Chart; No on the second attempt. Blood draw only: NO IV Start: YES Access Type: 22 gauge angiocath Line flushes easily and provides blood return: Yes An appropriate dressing applied: Yes Blood loss: nil The patient tolerated the procedure well and without apparent complications Procedure personally performed by a nurse practitioner, physician photographer's assistant, or physician: Yes Warner Montalvo APRN.CNP 10:41 PM April 14, 2019 CPT 26120 [facility] PROGRESSon 04-15-2019 PROGRESS HNO ID: [id number] Author: Chito Thorpe Service: Nephrology Author Type: Physician Type: Progress Notes Filed: 04/15/2019 7:11 PM Note Text: This patient's creatinine has gone up since admission. I believe that this is as a result of too much in the way of multiple medicines. It is doubtful that he has been very compliant with his medicines and then when he comes in the hospital he is getting all of them appropriately. He is now on clonidine and carvedilol. He is on a calcium channel shae and a diuretic and spironolactone and hydralazine. His potassium was low. His potassium has been supplemented. I am going to discontinue the spironolactone and the diuretic. I cut the hydralazine dosage in half. I have cut the clonidine dosage in half and my goal would be to wean him off of that. That is not a good medicine to give to a patient who is noncompliant and if we need a medicine to slow down his heart rate we are much better off with a beta-shae. He also is getting pain medications and has a tendency to seek outpatient medicines we are going to need to wean him as much as possible and it will not be easy I will get a bladder scan to make sure he is completely emptying his bladder If his creatinine goes up more tomorrow he may need some fluid back [facility] PROGRESS HNO ID: [id number] Author: Jhonny Valverde (Tech) Service: Nuclear Medicine Author Type: Operator Coating Furnace Type: Progress Notes Filed: 04/15/2019 3:21 PM Note Text: RADIOLOGY SERVICE PROGRESS NOTE DATE OF SERVICE: April 15, 2019 TIME OF SERVICE: 10:30 EVENT: EXAM/PROCEDURE NOT COMPLETED - Patient refused exam/procedure. ADDITIONAL DATA: Mr. Wells won't lie recumbent on the imaging table due to his back issues. SIGNATURE: Jhonny Valverde PATIENT NAME: Chito Wells DATE: April 15, 2019 TIME: 11:25 AM PAGER/CONTACT #: [facility] PT EDon 04-15-2019 PT ED HNO ID: [id number] Author: Lisa Garcia (Pharmacist) Service: Pharmacy Author Type: Pharmacist Type: Patient Education Filed: 04/15/2019 9:31 PM Note Text: AMI Education Note Patient Name:Johanna Wells Service Date: 04/15/2019 Service Time: 9:25 PM AMI Education Provided ACEI/ARB indication for Heart Failure/AMI Core Measures Review/Screening: LVEF = 55% from echocardiogram on 04/13/2019. JEANNIE-I/ARB: No, patient has Worsening Renal Function/Disease/Dysfunction Aspirin indication: Yes, Patient is on Aspirin Beta-Shae indication: Yes, patient is on: Coreg Statin indication: No, patient is not on a Statin due to: Elevated Liver Enzymes Medication Education Provided: 1. Reason for taking medications and treatment goals. 2. Benefits of medication therapy. 3. How medications work. 4. Necessary laboratory monitoring. 5. When to take medications and what to do is a dose is missed. 6. Drug interactions (Rx, OTC, herbal) and importance of notifying healthcare provider with any medication changes. 7. Potential duration of therapy. 8. Potential side effects of medications. 9. Use of control measures if applicable. 10. Importance of regularly filling prescriptions and taking medications. 11. Proper storage of medications. Patient was given opportunity to ask questions and receive answers. Current Inpatient Medications: Current Facility-Administered Medications Medication Dose Route Frequency - aspirin, enteric coated 81 mg tab(s) 81 mg ORAL DAILY - carvedilol 12.5 mg tab(s) (COREG) 12.5 mg ORAL BID w MEALS - perflutren lipid microspheres 1.1 mg/mL 1.3 mL injection (DEFINITY) 1.3 mL INTRAVENOUS DIRECTED PRN - heparin iv infusion (LOW DOSE ACS/NOMOGRAM) 25,000 units in NaCl 0.45% 250 mL PREMIX 0-3,000 Units/hr INTRAVENOUS CONTINUOUS And - heparin RATE CHANGE bolus 1,000-4,000 Units for subtherapeutic aptt results 1,000-4,000 Units INTRAVENOUS PRN - nitroglycerin 50 mg in D5W 250 mL 5-200 mcg/min INTRAVENOUS CONTINUOUS - dextrose 40 % 15 g 15 g ORAL PRN Or - glucagon 1 mg injection (GLUCAGEN) 1 mg INTRAMUSCULAR PRN Or - dextrose 50 % 12.5 g injection 12.5 g INTRAVENOUS PRN - amLODIPine 10 mg tab(s) (NORVASC) 10 mg ORAL DAILY - cyclobenzaprine 10 mg tab(s) (FLEXERIL) 10 mg ORAL TID PRN - diphenhydrAMINE 25 mg (BENADRYL) 25 mg ORAL q 6 H PRN - DULoxetine 30 mg cap(s) (CYMBALTA) 30 mg ORAL BID - famotidine 40 mg tab(s) (PEPCID) 40 mg ORAL DAILY - Fenofibrate 160 mg (LOFIBRA) 160 mg ORAL DAILY - fluticasone 50 mcg/actuation 1 [employer] (FLONASE) 1 [employer] EACH NOSTRIL DAILY - gabapentin (NEURONTIN) cap(s) 400 mg 400 mg ORAL QID - ipratropium-albuterol 3 mL nebulizer solution (DUONEB) 3 mL INHALATION q 4 H PRN - levETIRAcetam 250 mg tab(s) (KEPPRA) 250 mg ORAL BID - ondansetron 4 mg tab(s) (ZOFRAN) 4 mg ORAL q 6 H PRN - tamsulosin ER 0.4 mg cap(s) (FLOMAX) 0.4 mg ORAL DAILY - traZODone (DESYREL) tab(s) 150 mg 150 mg ORAL DAILY - doxycycline hyclate 100 mg cap(s) (VIBRAMYCIN) 100 mg ORAL BID - morphine SR 15 mg tab(s) (MS CONTIN, ORAMORPH SR) 15 mg ORAL q NOON - oxyCODONE IR 10 mg tab(s) (ROXICODONE) 10 mg ORAL q 12 H 6a/6p - HYDROmorphone 1 mg injection (DILAUDID) 1 mg INTRAVENOUS q 12 H PRN - insulin 70/30 insulin aspart prt/insulin aspart units/mL 100 Units injection (mixed intermediate and rapid acting) (NovoLOG MIX 70/30) 100 Units SUBCUTANEOUS BID w MEALS - insulin lispro 15 Units injection (rapid acting) (HumaLOG) 15 Units SUBCUTANEOUS w MEALS - insulin lispro injection (rapid acting) (HumaLOG) SUBCUTANEOUS AT BEDTIME - insulin lispro injection (rapid acting) (HumaLOG) SUBCUTANEOUS w MEALS - hydrALAZINE 25 mg tab(s) (APRESOLINE) 25 mg ORAL q 12 H - cloNIDine HCl 0.1 mg tab(s) (CATAPRES) 0.1 mg ORAL TID READINESS TO LEARN COGNITIVE ABILITY: Alert and oriented MOTIVATION TO LEARN: Interested FAMILY SUPPORT: Unable to assess - Family not present INSTRUCTION PROVIDED TO: Patient PATIENT LEARNS BEST BY: Unable to Assess FACTORS AFFECTING LEARNING: Unable to assess PHYSICAL LIMITATIONS AFFECTING LEARNING: Pain LEARNING RESPONSE DIAGNOSIS: Acute Coronary Syndrome PATIENT/FAMILY RESPONSE: Verbalizes understanding of: -The signs and symptoms of a worsening condition that warrant a call to the physician. -Accurate knowledge of prescribed medication prior to discharge. -The correct action to take if medication dose is missed. -The side effects associated with the medication that warrant a call to the physician. METHOD OF INSTRUCTION: Written instruction - handouts Verbal instruction FOLLOW-UP PLAN: Complete - No need for follow-up, patient instructed to call with any further issues INSTRUCTIONAL AIDS USED: Guide to [facility] Recovery Binder SUPPLEMENTAL MATERIAL PROVIDED: None FURTHER RECOMMENDATIONS (IF ANY): Instructed patient to avoid NSAID medications. Mr. Wells said he understood, but that taking a method of pain control for his back is upsetting. SIGNATURE: LISA GARCIA, PHARMACIST PAGER: [id number] (Vocera Ext) Normal [facility] Renal Function Panelon 04-15 Albumin [Mass/Vol] 3.6 g/dL Low 3.9-4.9 [facility] Anion gap [Moles/Vol] 12 mmol/L Normal 9-18 [facility] Calcium [Mass/Vol] 9.2 mg/dL Normal 8.5-10.2 [facility] Chloride [Moles/Vol] 101 mmol/L Normal 97-105 [facility] CO2 [Moles/Vol] 27 mmol/L Normal 22-33 [facility] Creatinine [Mass/Vol] 2.23 mg/dL High 0.73-1.22 [facility] Glucose [Mass/Vol] 70 mg/dL Low 74-99 [facility] Phosphate [Mass/Vol] 3.8 mg/dL Normal 2.7-4.8 [facility] Potassium [Moles/Vol] 3.3 mmol/L Low 3.7-5.1 [facility] Sodium [Moles/Vol] 140 mmol/L Normal 136-144 [facility] Urea nitrogen [Mass/Vol] 30 mg/dL High 9-24 [facility] APTTon 04-14-2019 aPTT Coag (Bld) [Time] 44.2 s High 23.0-32.4 [facility] Comment on above: Result Comment: Unfr actionated Heparin Therapeutic Ranges: Standard Heparin Nomogram: 53 to 78 seconds (anti-Xa level of 0.3 to 0.7 U/ml) Low Dose/ACS Nomogram: 49 to 67 seconds (anti-Xa level of 0.2 to 0.5 U/ml) Stroke Treatment Nomogram: 49 to 67 seconds (anti-Xa level of 0.2 to 0.5 U/ml) Note: The APTT therapeutic range has been determined for the current lot of laboratory APTT reagent in use throughout the [facility]. aPTT Coag (Bld) [Time] 59.5 s High 23.0-32.4 [facility] Comment on above: Result Comment: Unfr actionated Heparin Therapeutic Ranges: Standard Heparin Nomogram: 53 to 78 seconds (anti-Xa level of 0.3 to 0.7 U/ml) Low Dose/ACS Nomogram: 49 to 67 seconds (anti-Xa level of 0.2 to 0.5 U/ml) Stroke Treatment Nomogram: 49 to 67 seconds (anti-Xa level of 0.2 to 0.5 U/ml) Note: The APTT therapeutic range has been determined for the current lot of laboratory APTT reagent in use throughout the [facility]. aPTT Coag (Bld) [Time] 46.3 s High 23.0-32.4 [facility] Comment on above: Result Comment: Unfr actionated Heparin Therapeutic Ranges: Standard Heparin Nomogram: 53 to 78 seconds (anti-Xa level of 0.3 to 0.7 U/ml) Low Dose/ACS Nomogram: 49 to 67 seconds (anti-Xa level of 0.2 to 0.5 U/ml) Stroke Treatment Nomogram: 49 to 67 seconds (anti-Xa level of 0.2 to 0.5 U/ml) Note: The APTT therapeutic range has been determined for the current lot of laboratory APTT reagent in use throughout the [facility]. Sample checked for a clot. aPTT Coag (Bld) [Time] Account Credited Normal 23.0-32.4 [facility] Comment on above: Result Comment: Unab le to assay. Clotted specimen. NOTIFIED RN [place] [id number] DSA Unfractionated Heparin Therapeutic Ranges: Standard Heparin Nomogram: 53 to 78 seconds (anti-Xa level of 0.3 to 0.7 U/ml) Low Dose/ACS Nomogram: 49 to 67 seconds (anti-Xa level of 0.2 to 0.5 U/ml) Stroke Treatment Nomogram: 49 to 67 seconds (anti-Xa level of 0.2 to 0.5 U/ml) Note: The APTT therapeutic range has been determined for the current lot of laboratory APTT reagent in use throughout the [facility]. CBCon 04-14-2019 Absolute nRBC <0.01 Normal <0.01 [facility] Erythrocyte distribution width (RBC) [Ratio] 12.9 % Normal 11.5-15.0 [facility] Hematocrit (Bld) [Volume fraction] 37.2 % Low 39.0-51.0 [facility] Hemoglobin (Bld) [Mass/Vol] 12.0 g/dL Low 13.0-17.0 [facility] MCH (RBC) [Entitic mass] 27.5 pG Normal 26.0-34.0 [facility] MCHC (RBC) [Mass/Vol] 32.3 g/dL Normal 30.5-36.0 [facility] MCV (RBC) [Entitic vol] 85.1 fL Normal 80.0-100.0 [facility] Platelet mean volume (Bld) [Entitic vol] 8.9 fL Low 9.0-12.7 [facility] Platelets (Bld) [#/Vol] 170 10*3/uL Normal 150-400 [facility] RBC (Bld) [#/Vol] 4.37 10*6/uL Normal 4.20-6.00 [facility] WBC (Bld) [#/Vol] 10.78 10*3/uL Normal 3.70-11.00 [facility] CONSULT PROGon 04-14-2019 CONSULT PROG HNO ID: [id number] Author: Samuel Belcher Jr. Service: Cardiovascular Disease Author Type: Physician Type: Consult Progress Note Filed: 04/14/2019 12:08 PM Note Text: General: Well nourished and in no acute distress. BP 122/71 Pulse 64 Temp 37.2 ?C (99 ?F) (Oral) Resp 15 Ht 180.3 cm (5' 11) Wt 124.7 kg (274 lb 14.6 oz) SpO2 95% BMI 38.34 kg/m? Skin warm and dry. Head atraumatic and normocephalic. Eyes anicteric w/o conjunctival injection. Oral mucosa moist. Psychiatric: Normal mood and affect. Neurologic: Moves all extremities. Alert . No facial asymmetry. Speech fluent. Pulmonary: Good air movement without adventitious sounds. Cardiac: JVD or HJR: Not present at 45 degrees. No gallop, click or rub. PMI not palpable. Carotids 2+ w/o bruit. Murmur: none Pedal Edema: present GI: Abdomen soft and nontender w/o palpable organomegally. Musculoskeletal: No gross amputations. Good heart rate and BP Echo only small area possible hypokinesia ?occlusion with reperfusion causing large trop rise Same meds Stress test tomorrow Normal [facility] CONSULT PROG HNO ID: [id number] Author: Kylie MarvinRecord Clerk Salesperson) Davonte Service: Endocrinology Author Type: Nurse Practitioner Type: Consult Progress Note Filed: 04/15/2019 9:23 AM Note Text: ENDOCRINOLOGY FOLLOW UP VISIT PATIENT NAME: Chito Wells SERVICE DATE: 04/14/2019 SERVICE TIME: 1130 Impression: Some elements of this note were copied from my note from 04/13/2019, and have been updated where appropriate. All elements reflect current MDM from today, 04/14/2019. ASSESSMENT Mr. Wells is a 53 year old male being seen by Endocrinology for DM Type 2. Blood glucose is high at this time, 265 this AM. We have been consulted for glycemic control. IMPRESSION/RECOMMENDATIONS PLAN: ? Chane Basal Insulin: Novolog Mix 70/30 100u from TID to BID AC (breakfast AND dinner) ? Change Prandial Insulin: Humalog 15U from QID ACHS to TID AC ? START Supplemental Sliding Scale: Humalog Scale #3 ACHS ? Accuchecks ACHS ? Oral agents: none at this time ? Other pertinent medication/labs: A1C 7.4% Interval HPI: Mr. Wells is a 53 year old male presenting with DM Type 2.He does have a family history of diabetes mellitus in his grandfather. Regarding symptoms of hyperglycemia, He is not experiencing any symptoms such as polyuria, polydipsia, nocturia or rapid weight loss or blurry vision. He also reports the following diabetic macrovascular complications: GA and CKD. He was taking 70/30 100 units AC TID and Humalog 20 units AC tid and at bed time plus sliding scale 2. PERTINENT ROS: Review of Systems Constitutional: Negative for fever and chills. HENT: Negative for trouble swallowing and hearing loss. Eyes: Negative for visual disturbance. Respiratory: Negative for cough and difficulty breathing. Cardiovascular: Negative for chest pain and leg swelling. Gastrointestinal: Negative for nausea, vomiting, abdominal pain, diarrhea and constipation. Genitourinary: Negative for dysuria and urgency. Musculoskeletal: Positive for muscle weakness. Negative for myalgias. Skin: Negative for skin color changes and rash. Neurological: Negative for dizziness and headaches. Endo/Heme/Allergies: Negative for polydipsia and polyuria. PHYSICAL EXAM: VS:BP 141/76 Pulse 74 Temp 37.2 ?C (99 ?F) (Oral) Resp 19 Ht 180.3 cm (5' 11) Wt 124.7 kg (274 lb 14.6 oz) SpO2 94% BMI 38.34 kg/m? BMI 38.34 kg/(m2) General Appearance: Appears well, A+O x 3. Drowsy but arousable Affect: Pleasant and cooperative Eyes: PERRL Heart: RRR without murmur, gallop, or rubs. Lung:lungs clear to auscultation. No wheezing, rhonchi, rales percussion normal, good diaphragmatic excursion unlabored on room air Abdomen: round, soft, non-tender, positive bowel sounds Skin: warm and dry Lower Extremeties: Lower extremity 1+, bilateral upper extremities nonpitting ALLERGIES Allergen Reactions - Haldol [Haloperidol* Mental Status Change - Vicodin [Hydrocodon* Vomiting tolerates MEDICATIONS: Current Facility-Administered Medications Medication Dose Route Frequency - aspirin, enteric coated 81 mg tab(s) 81 mg ORAL DAILY - carvedilol 12.5 mg tab(s) (COREG) 12.5 mg ORAL BID w MEALS - perflutren lipid microspheres 1.1 mg/mL 1.3 mL injection (DEFINITY) 1.3 mL INTRAVENOUS DIRECTED PRN - heparin iv infusion (LOW DOSE ACS/NOMOGRAM) 25,000 units in NaCl 0.45% 250 mL PREMIX 0-3,000 Units/hr INTRAVENOUS CONTINUOUS And - heparin RATE CHANGE bolus 1,000-4,000 Units for subtherapeutic aptt results 1,000-4,000 Units INTRAVENOUS PRN - nitroglycerin 50 mg in D5W 250 mL 5-200 mcg/min INTRAVENOUS CONTINUOUS - dextrose 40 % 15 g 15 g ORAL PRN Or - glucagon 1 mg injection (GLUCAGEN) 1 mg INTRAMUSCULAR PRN Or - dextrose 50 % 12.5 g injection 12.5 g INTRAVENOUS PRN - hydrALAZINE 50 mg tab(s) (APRESOLINE) 50 mg ORAL q 12 H - amLODIPine 10 mg tab(s) (NORVASC) 10 mg ORAL DAILY - cloNIDine HCl 0.2 mg tab(s) (CATAPRES) 0.2 mg ORAL TID - cyclobenzaprine 10 mg tab(s) (FLEXERIL) 10 mg ORAL TID PRN - diphenhydrAMINE 25 mg (BENADRYL) 25 mg ORAL q 6 H PRN - DULoxetine 30 mg cap(s) (CYMBALTA) 30 mg ORAL BID - famotidine 40 mg tab(s) (PEPCID) 40 mg ORAL DAILY - Fenofibrate 160 mg (LOFIBRA) 160 mg ORAL DAILY - fluticasone 50 mcg/actuation 1 [employer] (FLONASE) 1 [employer] EACH NOSTRIL DAILY - gabapentin (NEURONTIN) cap(s) 400 mg 400 mg ORAL QID - insulin lispro 15 Units injection (rapid acting) (HumaLOG) 15 Units SUBCUTANEOUS QID - ipratropium-albuterol 3 mL nebulizer solution (DUONEB) 3 mL INHALATION q 4 H PRN - levETIRAcetam 250 mg tab(s) (KEPPRA) 250 mg ORAL BID - ondansetron 4 mg tab(s) (ZOFRAN) 4 mg ORAL q 6 H PRN - spironolactone 25 mg tab(s) (ALDACTONE) 25 mg ORAL BID - tamsulosin ER 0.4 mg cap(s) (FLOMAX) 0.4 mg ORAL DAILY - torsemide 40 mg tab(s) (DEMADEX) 40 mg ORAL DAILY - traZODone (DESYREL) tab(s) 150 mg 150 mg ORAL DAILY - doxycycline hyclate 100 mg cap(s) (VIBRAMYCIN) 100 mg ORAL BID - insulin 70/30 insulin aspart prt/insulin aspart units/mL 100 Units injection (mixed intermediate and rapid acting) (NovoLOG MIX 70/30) 100 Units SUBCUTANEOUS TID - morphine SR 15 mg tab(s) (MS CONTIN, ORAMORPH SR) 15 mg ORAL q NOON - oxyCODONE IR 10 mg tab(s) (ROXICODONE) 10 mg ORAL q 12 H 6a/6p - HYDROmorphone 1 mg injection (DILAUDID) 1 mg INTRAVENOUS q 12 H PRN DATA: Diagnostic tests reviewed for today's visit: Pertainent lab results and dx test Recent Labs 04/14/19 0302 04/13/19 0355 04/12/19 1122 WBC 10.78 9.61 11.44* HB 12.0* 14.6 16.3 HCT 37.2* 44.4 48.4 PLT 170 176 221 NA -- 136 139 K -- 4.3 3.8 CHLOR -- 96* 96* CO2 -- 21* 29 CREAT -- 1.59* 1.60* BUN -- 20 17 GLUC -- 147* 133* TPROT -- -- 7.6 ALB -- -- 4.5 CA -- 9.3 10.0 ALKPHOS -- -- 70 TBILI -- -- 0.3 AST -- 99* 133* ALT -- -- 39 HBA1C -- 7.4* -- Glucose, Point of Care Date Value Ref Range Status 04/14/2019 265 (A) 74 - 99 mg/dL Final 04/13/2019 147 (A) 74 - 99 mg/dL Final 04/13/2019 85 74 - 99 mg/dL Final 04/13/2019 146 (A) 74 - 99 mg/dL Final 04/13/2019 227 (A) 74 - 99 mg/dL Final 04/12/2019 282 (A) 74 - 99 mg/dL Final 04/12/2019 145 (A) 74 - 99 mg/dL Final Cholesterol, Total Date Value Ref Range Status 12/01/2007 179 100 - 199 mg/dL Final HDL Cholesterol Date Value Ref Range Status 12/01/2007 30 (L) >45 mg/dL Final LDL Cholesterol Date Value Ref Range Status 12/01/2007 91 60 - 129 mg/dL Final Triglyceride Date Value Ref Range Status 12/01/2007 289 (H) 30 - 149 mg/dL Final Gabriela Lord, INDUSTRIAL ENGINEERING MANAGER Student INDUSTRIAL ENGINEERING MANAGER Preceptor Note I was present and participated in the jarrell elements of the assessment and plan as listed noted. I have personally performed a face to face assessment of the patient and have reviewed the INDUSTRIAL ENGINEERING MANAGER Student's note. I agree with the assessment and plan as written. Kylie Arauz APRN.[facility] [place] Inspector Endocrine and Metabolism [place] Pager [phone] Covering DCT/Endo service today until [address] [place] [phone] after 4 PM [facility] Hepatitis B Surf. Agon 04-14 Hepatitis B Surf. Ag Negative Normal Negative [facility] Hepatitis C Ab IAon 04-14-19 20 Hepatitis C Ab IA Negative Normal Negative [facility] Comment on above: Performed By: #### A HCV ####[facility] [id number], [place] [id number] NURSING PROGon 04-14-2019 NURSING PROG HNO ID: [id number] Author: Lauren MarvinRn) JERROD Gold Service: Nursing Author Type: Registered Nurse Type: Nursing Progress Note Filed: 04/15/2019 4:18 AM Note Text: Nursing Progress Note Patient Name: Chito Wells Patient Location[place] [address] [address] Pt assessment done see flowsheet IV NTG and IV Heparin gtt infusing O2@3liters no c/o pain 0000 Assessment done see flowsheet Pt NPO for procedure in am 0400 Assessment done no c/o pain This note was completed by: Lauren Gold RN [facility] NURSING PROG HNO ID: [id number] Author: Idania MarvinRn) JERROD Glze Service: Nursing Author Type: Registered Nurse Type: Nursing Progress Note Filed: 04/14/2019 2:38 PM Note Text: Nursing Progress Note Patient Name: Chito Wells Patient Location: [place] [id number] Daily Note: 0730 Assumed care of patient, resting in bed with eyes closed. VSS. 0845 Assessment completed see flowsheet. C/O 09/26 back pain. PRN dilaudid provided. 1230 Assessment unchanged, VSS 1300 Spoke with endocrine CIGAR INSPECTOR new orders provided. This note was completed by: Idania Glez RN [facility] PROGRESSon 04-14-2019 PROGRESS HNO ID: [id number] Author: Chito Thorpe Service: Nephrology Author Type: Physician Type: Progress Notes Filed: 04/14/2019 3:56 PM Note Text: Please see my dictation [id number] [facility] PROGRESS HNO ID: [id number] Author: Nay Crooks Service: ? Author Type: Physician Type: Progress Notes Filed: 04/14/2019 1:39 PM Note Text: INTERNAL MEDICINE PROGRESS NOTE SERVICE DATE: 04/14/2019 SERVICE TIME: 1:35 pm ADMITTING PHYSICIAN: Samuel Belcher Jr. Subjective CHIEF COMPLAINT: No new events Current Facility-Administered Medications Medication Dose Route Frequency - insulin 70/30 insulin aspart prt/insulin aspart units/mL 100 Units injection (mixed intermediate and rapid acting) (NovoLOG MIX 70/30) 100 Units SUBCUTANEOUS BID w MEALS - insulin lispro 15 Units injection (rapid acting) (HumaLOG) 15 Units SUBCUTANEOUS w MEALS - insulin lispro injection (rapid acting) (HumaLOG) SUBCUTANEOUS w MEALS - aspirin, enteric coated 81 mg tab(s) 81 mg ORAL DAILY - carvedilol 12.5 mg tab(s) (COREG) 12.5 mg ORAL BID w MEALS - perflutren lipid microspheres 1.1 mg/mL 1.3 mL injection (DEFINITY) 1.3 mL INTRAVENOUS DIRECTED PRN - heparin iv infusion (LOW DOSE ACS/NOMOGRAM) 25,000 units in NaCl 0.45% 250 mL PREMIX 0-3,000 Units/hr INTRAVENOUS CONTINUOUS And - heparin RATE CHANGE bolus 1,000-4,000 Units for subtherapeutic aptt results 1,000-4,000 Units INTRAVENOUS PRN - nitroglycerin 50 mg in D5W 250 mL 5-200 mcg/min INTRAVENOUS CONTINUOUS - dextrose 40 % 15 g 15 g ORAL PRN Or - glucagon 1 mg injection (GLUCAGEN) 1 mg INTRAMUSCULAR PRN Or - dextrose 50 % 12.5 g injection 12.5 g INTRAVENOUS PRN - hydrALAZINE 50 mg tab(s) (APRESOLINE) 50 mg ORAL q 12 H - amLODIPine 10 mg tab(s) (NORVASC) 10 mg ORAL DAILY - cloNIDine HCl 0.2 mg tab(s) (CATAPRES) 0.2 mg ORAL TID - cyclobenzaprine 10 mg tab(s) (FLEXERIL) 10 mg ORAL TID PRN - diphenhydrAMINE 25 mg (BENADRYL) 25 mg ORAL q 6 H PRN - DULoxetine 30 mg cap(s) (CYMBALTA) 30 mg ORAL BID - famotidine 40 mg tab(s) (PEPCID) 40 mg ORAL DAILY - Fenofibrate 160 mg (LOFIBRA) 160 mg ORAL DAILY - fluticasone 50 mcg/actuation 1 [employer] (FLONASE) 1 [employer] EACH NOSTRIL DAILY - gabapentin (NEURONTIN) cap(s) 400 mg 400 mg ORAL QID - ipratropium-albuterol 3 mL nebulizer solution (DUONEB) 3 mL INHALATION q 4 H PRN - levETIRAcetam 250 mg tab(s) (KEPPRA) 250 mg ORAL BID - ondansetron 4 mg tab(s) (ZOFRAN) 4 mg ORAL q 6 H PRN - spironolactone 25 mg tab(s) (ALDACTONE) 25 mg ORAL BID - tamsulosin ER 0.4 mg cap(s) (FLOMAX) 0.4 mg ORAL DAILY - torsemide 40 mg tab(s) (DEMADEX) 40 mg ORAL DAILY - traZODone (DESYREL) tab(s) 150 mg 150 mg ORAL DAILY - doxycycline hyclate 100 mg cap(s) (VIBRAMYCIN) 100 mg ORAL BID - morphine SR 15 mg tab(s) (MS CONTIN, ORAMORPH SR) 15 mg ORAL q NOON - oxyCODONE IR 10 mg tab(s) (ROXICODONE) 10 mg ORAL q 12 H 6a/6p - HYDROmorphone 1 mg injection (DILAUDID) 1 mg INTRAVENOUS q 12 H PRN INTERVAL HISTORY OF PRESENT ILLNESS: as above Objective PHYSICAL EXAM: Patient Vitals for the past 24 hrs: BP Temp Temp src Pulse Resp SpO2 04/14/19 1304 ? 37.2 ?C (99 ?F) Oral ? ? 92 % 04/14/19 1200 126/69 ? ? 63 9 91 % 04/14/19 1100 122/71 ? ? 64 15 95 % 04/14/19 1000 112/66 ? ? 69 19 90 % 04/14/19 0900 141/76 ? ? 74 19 94 % 04/14/19 0816 ? 37.2 ?C (99 ?F) Oral ? ? 93 % 04/14/19 0800 126/71 ? ? 63 10 93 % 04/14/19 0700 125/69 ? ? 68 14 93 % 04/14/19 0600 131/74 ? ? 68 15 95 % 04/14/19 0500 121/69 ? ? 67 13 95 % 04/14/19 0400 128/72 36.5 ?C (97.7 ?F) Oral 67 14 95 % 04/14/19 0300 116/68 ? ? 66 12 95 % 04/14/19 0200 106/62 ? ? 66 12 94 % 04/14/19 0100 113/64 ? ? 67 12 94 % 04/14/19 0000 110/62 36.6 ?C (97.9 ?F) Oral 66 12 94 % 04/13/19 2300 110/59 ? ? 67 16 93 % 04/13/19 2200 107/60 ? ? 73 19 93 % 04/13/19 2100 127/66 ? ? 74 25 95 % 04/13/19 2000 115/63 36.6 ?C (97.9 ?F) Oral 75 12 94 % 04/13/19 1900 113/70 ? ? 76 18 94 % 04/13/19 1800 113/57 ? ? 78 22 93 % 04/13/19 1700 124/58 ? ? 71 13 92 % 04/13/19 1600 103/58 36.8 ?C (98.2 ?F) Oral 72 15 92 % 04/13/19 1500 123/69 ? ? 72 12 91 % 04/13/19 1445 ? 37.4 ?C (99.3 ?F) Oral ? ? 92 % 04/13/19 1400 120/71 ? ? 72 24 92 % Body mass index is 38.34 kg/m?. GENERAL: Alert, no distress, cooperative LUNGS: Lungs clear to auscultation. No wheezing CARDIAC: + S1 and S2; no gallops ABDOMEN: Abdomen soft, non-tender, BS normal EXTREMITIES: No ulcers, + edema NEURO: Alert, oriented X 3, follows commands ? DATA: Diagnostic tests reviewed for today's visit: Results for CHITO WELLS ( ) as of 04/14/2019 13:36 Ref. Range 04/13/2019 03:55 04/13/2019 09:49 04/14/2019 03:02 Sodium Latest Ref Range: 136 - 144 mmol/L 136 Potassium Latest Ref Range: 3.7 - 5.1 mmol/L 4.3 Chloride Latest Ref Range: 97 - 105 mmol/L 96 (L) CO2 Latest Ref Range: 22 - 33 mmol/L 21 (L) BUN Latest Ref Range: 9 - 24 mg/dL 20 Creatinine Latest Ref Range: 0.73 - 1.22 mg/dL 1.59 (H) Glucose Latest Ref Range: 74 - 99 mg/dL 147 (H) Calcium Latest Ref Range: 8.5 - 10.2 mg/dL 9.3 AST Latest Ref Range: 14 - 40 U/L 99 (H) Anion Gap Latest Ref Range: 9 - 18 mmol/L 19 (H) Troponin T Latest Ref Range: 0.000 - 0.029 ng/mL 2.190 (H) Creatinine, Ur Random (UCRR) Latest Ref Range: 20 - 300 mg/dL 120.6 Hematocrit Latest Ref Range: 39.0 - 51.0 % 44.4 37.2 (L) Hep B Surface Ag Latest Ref Range: Negative Negative Hemoglobin A1C Latest Ref Range: 4.3 - 5.6 % 7.4 (H) Estimated Average Glucose Latest Units: mg/dL 166 Results for CHITO WELLS ( ) as of 04/14/2019 13:36 Ref. Range 04/13/2019 03:55 04/14/2019 03:02 WBC Latest Ref Range: 3.70 - 11.00 k/uL 9.61 10.78 RBC Latest Ref Range: 4.20 - 6.00 m/uL 5.30 4.37 Hemoglobin Latest Ref Range: 13.0 - 17.0 g/dL 14.6 12.0 (L) Hematocrit Latest Ref Range: 39.0 - 51.0 % 44.4 37.2 (L) Platelet Count Latest Ref Range: 150 - 400 k/uL 176 170 MCV Latest Ref Range: 80.0 - 100.0 fL 83.8 85.1 MCH Latest Ref Range: 26.0 - 34.0 pG 27.5 27.5 MCHC Latest Ref Range: 30.5 - 36.0 g/dL 32.9 32.3 MPV Latest Ref Range: 9.0 - 12.7 fL 9.8 8.9 (L) RDW-CV Latest Ref Range: 11.5 - 15.0 % 13.0 12.9 Results for CHITO WELLS ( ) as of 04/14/2019 13:36 Ref. Range 04/13/2019 14:45 04/13/2019 18:17 04/13/2019 20:50 04/14/2019 08:58 04/14/2019 12:35 Glucose, Point of Care Latest Ref Range: 74 - 99 mg/dL 146 (A) 85 147 (A) 265 (A) 189 (A) Assessment/Plan NSTEMI Echo : Echo only small area possible hypokinesia - stress test tomorrow - c/w cardiac meds per cardiology ? Uncontrolled DM type 2 - endo is following ? HTN - controlled ? HLP - Obtain FLP ? 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 ?Minimal compression fracture at L1 is favored chronic given similar appearance on x-ray 02/26/2018. ?Postoperative changes status multilevel decompressive laminectomies and hardware removal. ?Severe spinal canal stenosis at T10-T11. ? Multilevel level postoperative granulation tissue and heterotopic ossification likely contribute to mass effect on the thecal sac - c/w pain meds PRN ? H/o abnormal LFTs- Since 2018 - stable - h/o alcohol abuse- currently not drinking ? ? CKD stage 3 - stable ? Seizure discorder - on keppra - seizure precautions. Medication and Non-Pharmacologic VTE Prophylaxis/Anticoagulants Anticoagulant AND Antiplatelet Medications (From admission, onward) Start Dose Route Frequency Ordered Stop 04/13/19 0900 aspirin, enteric coated 81 mg tab(s) 81 mg ORAL DAILY 04/12/19 1713 -- 04/12/19 1730 heparin iv infusion (LOW DOSE ACS/NOMOGRAM) 25,000 units in NaCl 0.45% 250 mL PREMIX (Heparin Infusion + Rate Change Bolus) 0-30 mL/hr 0-3,000 Units/hr INTRAVENOUS CONTINUOUS 04/12/19 171 -- VTE Prophylaxis: VTE prophylaxis appropriate SIGNATURE: Nay Crooks MD PATIENT NAME: Chito Wells DATE: April 14, 2019 TIME: 1:35 PM PAGER/CONTACT #: [facility] PROGRESS HNO ID: [id number] Author: Chito Thorpe Service: Nephrology Author Type: Physician Type: Progress Notes Filed: 04/15/2019 9:27 AM Note Text: [facility] Progress Note CHITO WELLS CSN#: [id number] PATIENT TYPE: LOCATION: [facility] ORIGINATOR: Chito Thorpe MD DATE OF SERVICE: 04/14/2019 DATE OF SERVICE: 04/14/2019 TIME OF SERVICE: 03:56 PM This is somebody we are seeing for stage 3 chronic kidney disease. See previous notes for the multiple etiologies. His kidney function really has not changed. Labs will be drawn tomorrow. He is sleeping soundly in bed, somehow the journeyman powerhouse operator gave him IV Dilaudid despite his known history of drug-seeking behavior. Blood pressure 122/71, heart rate 64. No significant peripheral edema. Labs will be checked in the morning. He is currently on torsemide 40 daily and spironolactone 25 b.i.d. We have to see what his potassium is. He is to get a stress test tomorrow. CBA DOC: [id number] cc: [facility] 04-13-2019 aPTT Coag (Bld) [Time] 42.7 s High 23.0-32.4 [facility] Comment on above: Result Comment: Unfr actionated Heparin Therapeutic Ranges: Standard Heparin Nomogram: 53 to 78 seconds (anti-Xa level of 0.3 to 0.7 U/ml) Low Dose/ACS Nomogram: 49 to 67 seconds (anti-Xa level of 0.2 to 0.5 U/ml) Stroke Treatment Nomogram: 49 to 67 seconds (anti-Xa level of 0.2 to 0.5 U/ml) Note: The APTT therapeutic range has been determined for the current lot of laboratory APTT reagent in use throughout the [facility]. aPTT Coag (Bld) [Time] 32.7 s High 23.0-32.4 [facility] Comment on above: Result Comment: Unfr actionated Heparin Therapeutic Ranges: Standard Heparin Nomogram: 53 to 78 seconds (anti-Xa level of 0.3 to 0.7 U/ml) Low Dose/ACS Nomogram: 49 to 67 seconds (anti-Xa level of 0.2 to 0.5 U/ml) Stroke Treatment Nomogram: 49 to 67 seconds (anti-Xa level of 0.2 to 0.5 U/ml) Note: The APTT therapeutic range has been determined for the current lot of laboratory APTT reagent in use throughout the [facility]. aPTT Coag (Bld) [Time] 25.6 s Normal 23.0-32.4 [facility] Comment on above: Result Comment: Unfr actionated Heparin Therapeutic Ranges: Standard Heparin Nomogram: 53 to 78 seconds (anti-Xa level of 0.3 to 0.7 U/ml) Low Dose/ACS Nomogram: 49 to 67 seconds (anti-Xa level of 0.2 to 0.5 U/ml) Stroke Treatment Nomogram: 49 to 67 seconds (anti-Xa level of 0.2 to 0.5 U/ml) Note: The APTT therapeutic range has been determined for the current lot of laboratory APTT reagent in use throughout the [facility]. Shira 04-13-2019 AST [Catalytic activity/Vol] 99 U/L High 14-40 [facility] Comment on above: Result Comment: Resu lts may be falsely increased due to interference by hemolysis. Suggest reorder as clinically indicated. Basic Metabolic Panlon 04-13 Anion gap [Moles/Vol] 19 mmol/L High 9-18 [facility] Calcium [Mass/Vol] 9.3 mg/dL Normal 8.5-10.2 [facility] Chloride [Moles/Vol] 96 mmol/L Low 97-105 [facility] CO2 [Moles/Vol] 21 mmol/L Low 22-33 [facility] Creatinine [Mass/Vol] 1.59 mg/dL High 0.73-1.22 [facility] Glucose [Mass/Vol] 147 mg/dL High 74-99 [facility] Potassium [Moles/Vol] 4.3 mmol/L Normal 3.7-5.1 [facility] Comment on above: Result Comment: Resu lts may be falsely increased due to interference by hemolysis. Suggest reorder as clinically indicated. Sodium [Moles/Vol] 136 mmol/L Normal 136-144 [facility] Urea nitrogen [Mass/Vol] 20 mg/dL Normal 9-24 [facility] CASE MGT INIT ASSESon 2019 CASE MGT INIT [facility] HNO ID: [id number] Author: Toñito Vogel (Sw) Service: Social Work Author Type: Retail Service Specialist Type: Care Mgt Initial Assessment Filed: 04/13/2019 7:03 PM Note Text: CARE MANAGEMENT: ASSESSMENT AND DISCHARGE PLAN SERVICE DATE: April 13, 2019 SERVICE TIME: 7:01 PM PRIMARY CARE PHYSICIAN: Toñito Yadav DO ADMISSION STATUS: Inpatient MEDICAL: 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 Stated Goals: To have reduction in pain;To have reduction in symptoms;To improve my functional status;To return home to life as it was;To be cured/healed Health Insurance: Medicaid Health Issues Impacting Discharge Plan: Newly diagnosed;Chronic Newly Diagnosed: nstemi Chronic: hypertension, seizure disorder , DHF, diabetes, CKD Last Discharge Date: 04/12/19 Is this Within the Past 30 days? Last discharge within 30 days: Yes Is this a planned readmission?: No Followed Up with Appointment Prior to Admission: Patient scheduled, but readmitted prior Advance Directive: Current Advance Directive: Health Care Power of Social Services Director;Living Will In Chart: Yes Up To Date and Valid: Yes Health LiteracyHow often do you need to have someone help you when you read instructions, pamphlets, or other written material from your doctor or pharmacy? : 1 - Never How confident are you filling out medical forms by yourself?: 1 - Extremely If Patient scores > 3 on either question, the following interventions were put into place:: Patient did not score > 3 on either question. Prior to Admission: Baseline Mental Status: Alert AND Oriented Prior to this illness, has anyone described the patient having any of the following behaviors? Not Applicable Relationship of the information to the patient:: Self Functional Status: Needs Assistance;Other: See Comment Does Patient Currently Receive Any Community Services or Home Care?: Other: See Comment(Paliative care, he doesn't think it is from [facility]) Equipment Prior to Admission: Wheelchair;Rollator Scooter;Oxygen SOCIAL: Living Arrangements: Nursing Facility Financial Resources: DisabledPrimary Contact: Extended Emergency Contact Information Primary Emergency Contact: None,Per Pt Relation: None Social Needs Food insecurity Worry: Never true Inability: Never true Resources Needed: No Social Needs Financial resource strain: Not hard at all na Social Needs Transportation needs Medical: No Non-medical: No Caregiver AssessmentCaregiver is ready, willing and able to meet the patient's needs as recommended by the inter-professional team:: Yes Does the patient have an acute stroke diagnosis, or has the patient had a stroke during this admission?: No Patient's perception of need for this admission: needed Medication Adherance I am convinced of the importance of my prescription medication: 0 - Agree Completely I worry that my prescription medication will do more harm than good to me : 0 - Diagree Completely I feel financially burdened by my [id number] expenses for my prescription medication:: 2 - Agree Completely Risk Score: 2 Patient is categorized as: Low risk < 2 Are you interested in bedside delivery of your medications? No Is Patient Psychosocially Complex?: No ASSESSMENT AND PLAN: Medical Needs: Psychosocial Needs: Psychosocial Needs: None FREEDOM OF CHOICE EXPLAINED: POTENTIAL TRANSITION PLANS This patient lives at [facility]. He has Palliative Care, but thinks it is not through [facility], not certain where. He identifies no unmet needs at baseline. SIGNATURE: RAMON Amaya PATIENT NAME: Chito Wells DATE: April 13, 2019 TIME: 7:01 PM PAGER/CONTACT #: [phone] Normal [facility] CBCon 04-13-2019 Absolute nRBC <0.01 Normal <0.01 [facility] Erythrocyte distribution width (RBC) [Ratio] 13.0 % Normal 11.5-15.0 [facility] Hematocrit (Bld) [Volume fraction] 44.4 % Normal 39.0-51.0 [facility] Hemoglobin (Bld) [Mass/Vol] 14.6 g/dL Normal 13.0-17.0 [facility] MCH (RBC) [Entitic mass] 27.5 pG Normal 26.0-34.0 [facility] MCHC (RBC) [Mass/Vol] 32.9 g/dL Normal 30.5-36.0 [facility] MCV (RBC) [Entitic vol] 83.8 fL Normal 80.0-100.0 [facility] Platelet mean volume (Bld) [Entitic vol] 9.8 fL Normal 9.0-12.7 [facility] Platelets (Bld) [#/Vol] 176 10*3/uL Normal 150-400 [facility] RBC (Bld) [#/Vol] 5.30 10*6/uL Normal 4.20-6.00 [facility] WBC (Bld) [#/Vol] 9.61 10*3/uL Normal 3.70-11.00 [facility] CONSULTon 04-13-2019 CONSULT HNO ID: [id number] Author: Kylie Arauz (Cns) Service: Endocrinology Author Type: Nurse Practitioner Type: Consults Filed: 04/13/2019 2:31 PM Note Text: DIABETES INITIAL CONSULT PATIENT NAME: Chito Wells SERVICE DATE: 04/13/2019 SERVICE TIME: 11:05 AM PRIMARY CARE PHYSICIAN: Toñito Yadav, DO Consultation requested by Dr. Samuel Belcher for an opinion regarding Mr. Chito Wells. We have been consulted for glycemic control. My final recommendations will be communicated back to the requesting physician by way of shared medical record. ASSESSMENT AND PLAN Mr. Wells is a 53 year old male being seen by Endocrinology for DM Type 2. Blood glucose is 227 at this time. RECOMMENDATIONS: 1. Glycemic control: Target HbA1C is less than 7.0% per ADA guidelines. order A1C Diabetes PLAN: 1. Continue Basal Insulin: Novolog Mix 70/30 100U tid 2. Continue Prandial Insulin: Humalog 15 units for times daily with meals and at bed time. 3. No Supplemental Sliding Scale:at this time 4. Oral agents: None at this time 5. Other pertinent medication: 6. Accuchecks ACHS 7. Labs Check A1C 8. Diabetes education 9. Will continue to monitor. DM DISCHARGE PLAN: ? To be decided based on clinical course. ? Check blood sugars Four times a Day ? Diet: Heart Healthy: Cardiac 2 GM SODIUM (<200 MG CHOL / LOW SAT FAT) ? Exercise as prescribed by cardiology/ primary team ? Follow up with deer farm worker and senior safety support manager as recommended. ? Patient will need follow-up with their home forestry aide/PCP in 1-2 weeks after discharge. ? Diabetes Care Team Hospital Discharge Help Line:[phone] SUBJECTIVE Consult Date:April 13, 2019: We saw Mr. Wells in consultation with dr. Belcher for an opinion and further recommendations regarding DM Type 2. Patient Active Hospital Problem List: Myocardial infarct (HCC) (04/12/2019) HISTORY OF PRESENT ILLNESS: Mr. Wells is a 53 year old male presenting with DM Type 2.He does have a family history of diabetes mellitus in his grandfather. Regarding symptoms of hyperglycemia, He is not experiencing any symptoms such as polyuria, polydipsia, nocturia or rapid weight loss or blurry vision. He also reports the following diabetic macrovascular complications: GA and CKD. He was taking 70/30 100 units AC TID and Humalog 20 units AC tid and at bed time plus sliding scale 2. DIABETIC COMPLICATIONS: Nephropathy Neuropathy ]Cardiology I have confirmed and edited as necessary, the PFSH and ROS obtained by others. 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 - Other and unspecified hyperlipidemia - Spinal stenosis in cervical region - Type II or unspecified type diabetes mellitus without mention of complication, uncontrolled (HCC) since 2000 - Unspecified essential hypertension since 1998 PAST SURGICAL HISTORY: PAST SURGICAL HISTORY Procedure Laterality Date - BACK SURGERY HX pt has had 5 back surgeries, one which removed all of the hardware placed down his spinal column - HERNIA REPAIR HX x 3 - KNEE SCOPE,DIAGNOSTIC 4 on each knee - REMOVAL GALLBLADDER - STENT heart x2 FAMILY HISTORY: FAMILY HISTORY Problem Relation Age of Onset - Hypertension Mother - Heart Father - Stroke Father SOCIAL HISTORY: Social History Tobacco Use - Smoking status: Current Every Day Smoker Packs/day: 0.50 Years: 25.00 Pack years: 12.50 Types: Cigarettes - Smokeless tobacco: Never Used - Tobacco comment: cig- 0.5-2 ppd. sometimes uses electric cig Substance Use Topics - Alcohol use: Not Currently Comment: hx social binge drinking greater than 10 yrs ago, quit - Drug use: No Comment: hx cocaine, heroin use 10 yrs ago, quit CURRENT MEDICATION: Current Facility-Administered Medications Medication Dose Route Frequency Provider Last Rate Last Dose - aspirin, enteric coated 81 mg tab(s) 81 mg ORAL DAILY Samuel Belcher Jr. 81 mg at 04/13/19 0902 - carvedilol 12.5 mg tab(s) (COREG) 12.5 mg ORAL BID w MEALS Samuel Belcher Jr. 12.5 mg at 04/13/19 0904 - perflutren lipid microspheres 1.1 mg/mL 1.3 mL injection (DEFINITY) 1.3 mL INTRAVENOUS DIRECTED PRN Samuel Belcher Jr. - heparin iv infusion (LOW DOSE ACS/NOMOGRAM) 25,000 units in NaCl 0.45% 250 mL PREMIX 0-3,000 Units/hr INTRAVENOUS CONTINUOUS Samuel Belcher JrPat 20 mL/hr at 04/13/19 0750 2,000 Units/hr at 04/13/19 0750 And - heparin RATE CHANGE bolus 1,000-4,000 Units for subtherapeutic aptt results 1,000-4,000 Units INTRAVENOUS PRN Samuel Belcher Jr. 4,000 Units at 04/13/19 0341 - nitroglycerin 50 mg in D5W 250 mL 5-200 mcg/min INTRAVENOUS CONTINUOUS Samuel Belcher Jr. 3.6 mL/hr at 04/12/19 1829 12 mcg/min at 04/12/19 1829 - dextrose 40 % 15 g 15 g ORAL PRN Beejadi N Mukunda Or - glucagon 1 mg injection (GLUCAGEN) 1 mg INTRAMUSCULAR PRN Beejadi N Mukunda Or - dextrose 50 % 12.5 g injection 12.5 g INTRAVENOUS PRN Beejadi N Mukunda - hydrALAZINE 50 mg tab(s) (APRESOLINE) 50 mg ORAL q 12 H Chito Hanson Lautman 50 mg at 04/13/19 09 - amLODIPine 10 mg tab(s) (NORVASC) 10 mg ORAL DAILY Samuel Belcher Jr. 10 mg at 04/13/19 09 - cloNIDine HCl 0.2 mg tab(s) (CATAPRES) 0.2 mg ORAL TID Samuel Belcher Jr. 0.2 mg at 04/13/19916 - cyclobenzaprine 10 mg tab(s) (FLEXERIL) 10 mg ORAL TID PRN Samuel Belcher Jr. 10 mg at 04/13/19 0230 - diphenhydrAMINE 25 mg (BENADRYL) 25 mg ORAL q 6 H PRN Samuel Belcher Jr. - DULoxetine 30 mg cap(s) (CYMBALTA) 30 mg ORAL BID Samuel Belcher Jr. 30 mg at 04/13/19904 - famotidine 40 mg tab(s) (PEPCID) 40 mg ORAL DAILY Samuel Belcher Jr. 40 mg at 04/13/19903 - Fenofibrate 160 mg (LOFIBRA) 160 mg ORAL DAILY Samuel Belcher Jr. 160 mg at 04/13/19904 - fluticasone 50 mcg/actuation 1 [employer] (FLONASE) 1 [employer] EACH NOSTRIL DAILY Samuel Belcher Jr. - gabapentin (NEURONTIN) cap(s) 400 mg 400 mg ORAL QID Samuel Belcher Jr. 400 mg at 04/13/19 09 - insulin lispro 15 Units injection (rapid acting) (HumaLOG) 15 Units SUBCUTANEOUS QID Samuel Belcher Jr. 15 Units at 04/13/19 0908 - ipratropium-albuterol 3 mL nebulizer solution (DUONEB) 3 mL INHALATION q 4 H PRN Samuel Belcher Jr. - levETIRAcetam 250 mg tab(s) (KEPPRA) 250 mg ORAL BID Samuel Belcher Jr. 250 mg at 04/13/19 09 - ondansetron 4 mg tab(s) (ZOFRAN) 4 mg ORAL q 6 H PRN Samuel Belcher Jr. - spironolactone 25 mg tab(s) (ALDACTONE) 25 mg ORAL BID Samuel Belcher Jr. 25 mg at 04/13/19 0904 - tamsulosin ER 0.4 mg cap(s) (FLOMAX) 0.4 mg ORAL DAILY Samuel Fatima Ye Jr. 0.4 mg at 04/13/19 09 - torsemide 40 mg tab(s) (DEMADEX) 40 mg ORAL DAILY Samuel Belcher JrPat 40 mg at 04/13/19 09 - traZODone (DESYREL) tab(s) 150 mg 150 mg ORAL DAILY Samuel Kushal Belcher Jr. 150 mg at 04/12/19 2226 - hydrALAZINE 100 mg tab(s) (APRESOLINE) 100 mg ORAL TID Samuel Belcher Jr. - doxycycline hyclate 100 mg cap(s) (VIBRAMYCIN) 100 mg ORAL BID Beejadi N Mukunda 100 mg at 04/13/19 09 - insulin 70/30 insulin aspart prt/insulin aspart units/mL 100 Units injection (mixed intermediate and rapid acting) (NovoLOG MIX 70/30) 100 Units SUBCUTANEOUS TID Beejadi N Mukunda 100 Units at 04/13/19 0906 - morphine SR 15 mg tab(s) (MS CONTIN, ORAMORPH SR) 15 mg ORAL q NOON Warner (Repairer [employer]) Manacci - oxyCODONE IR 10 mg tab(s) (ROXICODONE) 10 mg ORAL q 12 H 6a/6p Warner (Repairer [employer]) Manacci 10 mg at 04/13/19 0603 - HYDROmorphone 1 mg injection (DILAUDID) 1 mg INTRAVENOUS q 12 H PRN Wraner (Repairer [employer] Furniture) Manacci 1 mg at 04/13/19 0909 CURRENT ALLERGIES: Allergies As of Date: 04/12/2019 Allergen Noted Reaction HALDOL [HALOPERIDOL LACTATE] 08/07/2017 Mental Status Change VICODIN [HYDROCODONE-ACETAMINOPHE* Vomiting Fully Assessed 04/12/2019 HOSPITAL PROBLEMS Patient Active Hospital Problem List: Myocardial infarct (HCC) (04/12/2019) REVIEW OF SYSTEMS General: no fever, chills or acute changes in weight in the last 6 months Skin: no rashes, pruritis or wounds. Positive for dry skin BLE Eyes: positive blurred vision, no double vision or eye pain Cardiac: denies chest pain, heart palpitations. Positive for Hypertension AND Hyperlipidemia Pulmonary: denies wheezing, productive cough or exertional dyspnea GI: denies nausea, vomiting, diarrhea or constipation : No history of dysuria, frequency or incontinence Neuro: positive for numbnes/tingling in hands AND feet bilaterally, denies seizures Musc: denies upper or lower extremity weakness Endocrine: positive for blurry vision. Denies polyuria, polydipsia, nocturia, or excessive fatigue Hematology: Negative for anemia, easy bleeding and bruising. Pt currently on Heparin drip OBJECTIVE PHYSICAL EXAM: BP 125/62 Pulse 75 Temp 36.9 ?C (98.4 ?F) (Oral) Resp 24 Ht 180.3 cm (5' 11) Wt 124.7 kg (274 lb 14.6 oz) SpO2 91% BMI 38.34 kg/m2 General: Well appearing, alert, in no acute distress, well-hydrated, well nourished. Skin: skin color, texture, turgor normal, no rashes or lesions. Head: normocephalic. Eyes: Anicteric sclera. Pupils are equally round and reactive to light. Oropharynx: Lips, mucosa, and tongue normal, teeth and gums normal, oropharynx normal Neck: Supple, no adenopathy; thyroid symmetric, normal size, no bruits Heart: RRR without murmur, gallop, or rubs. Lung:lungs clear to auscultation. No wheezing, rhonchi, rales unlabored on room air. Denies cough or SOB Abdomen: round, soft, non-tender, positive bowel sounds Extremities: BLE dry/intact, no edema, no calluses or ulcers present. Peripheral Pulses: doralis pedis pulses 2+ and symmetrical LABS: Glucose (mg/dL) Date Value 04/13/2019 147 Creatinine (mg/dL) Date Value 04/13/2019 1.59 Potassium (mmol/L) Date Value 04/13/2019 4.3 AST (U/L) Date Value 04/13/2019 99 ALT (U/L) Date Value 04/12/2019 39 Hemoglobin A1C (%) Date Value 11/30/2007 10.0 Cholesterol, Total (mg/dL) Date Value 12/01/2007 179 HDL Cholesterol (mg/dL) Date Value 12/01/2007 30 ] LDL Cholesterol (mg/dL) Date Value 12/01/2007 91 Triglyceride (mg/dL) Date Value 12/01/2007 289 ] No results found for: FREET4 No results found for: [id number] TSH (uU/mL) Date Value 11/30/2007 1.390 DATA: Diagnostic tests reviewed for today's visit: Pertainent lab results and dx test VITALIY Benitez Student INDUSTRIAL ENGINEERING MANAGER Preceptor Note I was present and participated in the jarrell elements of the assessment and plan as listed noted. I have personally performed a face to face assessment of the patient and have reviewed the INDUSTRIAL ENGINEERING MANAGER Student's note. I agree with the assessment and plan as written. Kylie Arauz APRN.[facility] [place] Pager [phone] Covering DCT/Endo service today until [address] Urrutia [phone] after 4 PM Kylie Arauz APRN.[facility] [place] Pager [phone] Covering DCT/Endo service today until [address] Urr[place]ia [phone] after 4 PM Normal [facility] CONSULT HNO ID: [id number] Author: Lico Bui Service: Gastroenterology Author Type: Physician Type: Consults Filed: 04/13/2019 9:00 AM Note Text: Gastroenterology Consult Note PATIENT NAME: Chito Wells SERVICE DATE: 04/13/2019 SERVICE TIME: 7:56 AM REASON FOR CONSULT: abnormal ast PRIMARY CARE PHYSICIAN: Toñito Yadav DO REFERRING PHYSICIAN: Dr Belcher ASSESSMENT: 53 year old male Active Hospital Problems Myocardial infarct (HCC) [I21.9] Isolated ast elevation in setting of GA. Likely myocardial in etiology. Seems to have peaked already. Abnormal weight loss, n/v. - needs GI work-up but will need to defer for now until acute cardiac issues settle. PLAN: Eventual GI work-up once cardiac issues are settled. Will check for viral hepatitis based on previous risk factors Appreciate Consult. SIGNATURE: Lico Bui MD DATE: April 13, 2019 TIME: 7:56 AM SUBJECTIVE Mr. Wells is a 53 year old male who presents with epigastric pain. 3 days epigastric pain, n/v. In ED determined to have nstemi. 100# wt loss over 6 months. CAD/CKD/GERD, 2018 mildly abn lft. ast peaked yesterday. In ER ct shows no acute adb/pelv pathology images personally reviewed. Cbc this am is normal. Lipase was not elevated. Patient does report previous history of abnormal LFTs. These were minor abnormalities by his report and were not pursued in any way in terms of workup. 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 He had a transfusion as a child. He has not had any alcohol in 25 years. I then he did have some binge drinking but did not drink every day. He had an episode of pancreatitis in 2000. At that time he was found to have newly diagnosed diabetes as well. He does not recall any other specifics regarding the pancreatitis. He's had nausea and vomiting for the past 4-5 months. He's had a 100 pound weight loss over the past year or so. This was unintentional. He had a very remote upper endoscopy and colonoscopy. He also had a remote hiatal hernia repair. Regards to the vomiting, intermittent. He has not been able to determine any particular pattern. He has not had any profoundly delayed vomiting of previously ingested contents. Sometimes he vomits immediately after eating something. He said no hematemesis. No melena. 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 - Other and unspecified hyperlipidemia - Spinal stenosis in cervical region - Type II or unspecified type diabetes mellitus without mention of complication, uncontrolled (HCC) since 2000 - Unspecified essential hypertension since 1998 PAST SURGICAL HISTORY: PAST SURGICAL HISTORY Procedure Laterality Date - BACK SURGERY HX pt has had 5 back surgeries, one which removed all of the hardware placed down his spinal column - HERNIA REPAIR HX x 3 - KNEE SCOPE,DIAGNOSTIC 4 on each knee - REMOVAL GALLBLADDER - STENT heart x2 FAMILY HISTORY: FAMILY HISTORY Problem Relation Age of Onset - Hypertension Mother - Heart Father - Stroke Father SOCIAL HISTORY: Social History Tobacco Use - Smoking status: Current Every Day Smoker Packs/day: 0.50 Years: 25.00 Pack years: 12.50 Types: Cigarettes - Smokeless tobacco: Never Used - Tobacco comment: cig- 0.5-2 ppd. sometimes uses electric cig Substance Use Topics - Alcohol use: Not Currently Comment: hx social binge drinking greater than 10 yrs ago, quit - Drug use: No Comment: hx cocaine, heroin use 10 yrs ago, quit MEDICATIONS: Prior to Admission Medications: famotidine (PEPCID) 40 mg tablet, Take 40 mg by mouth once daily., Disp: , Rfl: , 04/12/2019 at 0900 cloNIDine HCl (CATAPRES) 0.2 mg tablet, Take 0.2 mg by mouth three times daily. , Disp: , Rfl: , 04/12/2019 at 0900 doxycycline hyclate (VIBRAMYCIN) 100 mg capsule, Take 100 mg by mouth twice daily. , Disp: , Rfl: , 04/12/2019 at 0900 Fenofibrate (LOFIBRA) 160 mg tablet, Take 160 mg by mouth., Disp: , Rfl: , 04/11/2019 at 2100 torsemide (DEMADEX) 20 mg tablet, Take 40 mg by mouth., Disp: , Rfl: , 04/12/2019 at 0900 traZODone (DESYREL) 50 mg tablet, Take 150 mg by mouth. , Disp: , Rfl: , 04/11/2019 at 2100 fluticasone (FLONASE) 50 mcg/actuation nasal spray, Use 1 [employer] in the nose., Disp: , Rfl: , 04/12/2019 at 0900 amLODIPine (NORVASC) 10 mg tablet, Take 10 mg by mouth once daily., Disp: , Rfl: , 04/12/2019 at 0900 morphine SR (MS CONTIN, ORAMORPH SR) 30 mg 12 hr tablet, Take 15 mg by mouth once daily. , Disp: , Rfl: , 04/11/2019 at 1200 oxyCODONE IR (ROXICODONE) 10 mg tab, Take 10 mg by mouth twice daily. , Disp: , Rfl: , 04/12/2019 at 0500 acetaminophen (TYLENOL EXTRA STRENGTH) 500 mg tablet, Take 1,000 mg by mouth every 6 hours as needed., Disp: , Rfl: , 04/11/2019 at Unknown time cyclobenzaprine HCl (CYCLOBENZAPRINE ORAL), Take 10 mg by mouth three times daily as needed., Disp: , Rfl: , 04/12/2019 at 0900 diphenhydrAMINE (BENADRYL ALLERGY) 25 mg tablet, Take 25 mg by mouth every 6 hours as needed for Itching/Rash., Disp: , Rfl: , 04/12/2019 at 0900 ipratropium-albuterol (DUONEB) 0.5 mg-3 mg(2.5 mg base)/3 mL nebu, Inhale 3 mL as instructed every 4 hours as needed., Disp: , Rfl: , Past Week at Unknown time ondansetron (ZOFRAN) 4 mg tablet, Take 4 mg by mouth every 6 hours as needed for Nausea/Vomiting. , Disp: , Rfl: , 04/12/2019 at 0900 isosorbide mononitrate ER (IMDUR) 30 mg 24 hr tablet, Take 30 mg by mouth once daily., Disp: , Rfl: , 04/12/2019 at 0900 carvedilol (COREG ORAL), Take 37.5 mg by mouth twice daily., Disp: , Rfl: , 04/12/2019 at 0900 spironolactone (ALDACTONE) 25 mg tablet, Take 25 mg by mouth twice daily., Disp: , Rfl: , 04/12/2019 at 0900 insulin aspart prot/insuln asp (NOVOLOG MIX 70-30 SUBCUTANEOUS), Inject 100 Units subcutaneously three times daily., Disp: , Rfl: , 04/12/2019 at 0900 insulin aspart (NOVOLOG FLEXPEN U-100 INSULIN SUBCUTANEOUS), Inject 15 Units subcutaneously four times daily. Pt takes Novolog 15 units SQ 4 times a day, Disp: , Rfl: , 04/12/2019 at 0900 hydrALAZINE (APRESOLINE) 100 mg tablet, Take 1 tablet by mouth three times daily., Disp: , Rfl: , 04/12/2019 at 0900 tamsulosin ER (FLOMAX) 0.4 mg cp24, Take 0.4 mg by mouth once daily., Disp: , Rfl: , 04/11/2019 at 2100 gabapentin (NEURONTIN) 400 mg capsule, Take 400 mg by mouth four times daily., Disp: , Rfl: , 04/12/2019 at 0900 levETIRAcetam (KEPPRA) 250 mg tablet, Take 250 mg by mouth twice daily., Disp: , Rfl: , 04/12/2019 at 0900 DULoxetine (CYMBALTA) 30 mg capsule, Take 30 mg by mouth twice daily. , Disp: , Rfl: , 04/12/2019 at 0900 ferrous sulfate 325 mg (65 mg iron) tablet, Take 325 mg by mouth., Disp: , Rfl: , Unknown at Unknown time menthol (BIOFREEZE, MENTHOL,) 4 % gel, Apply to affected area., Disp: , Rfl: , Unknown at Unknown time hydrocortisone 1 % cream, Apply to affected area twice daily., Disp: , Rfl: , Unknown at Unknown time Ascorbic Acid-Ascorbate Sodium 250 mg chew, Take 250 mg by mouth once daily., Disp: , Rfl: , 04/12/2019 at Unknown time hydrOXYzine HCl (ATARAX) 25 mg tablet, Take 25 mg by mouth three times daily as needed., Disp: , Rfl: , Unknown at Unknown time Current Facility-Administered Medications Medication Dose Route Frequency - aspirin, enteric coated 81 mg tab(s) 81 mg ORAL DAILY - carvedilol 12.5 mg tab(s) (COREG) 12.5 mg ORAL BID w MEALS - perflutren lipid microspheres 1.1 mg/mL 1.3 mL injection ([facility]) 1.3 mL INTRAVENOUS DIRECTED PRN - heparin iv infusion (LOW DOSE ACS/NOMOGRAM) 25,000 units in NaCl 0.45% 250 mL PREMIX 0-3,000 Units/hr INTRAVENOUS CONTINUOUS And - heparin RATE CHANGE bolus 1,000-4,000 Units for subtherapeutic aptt results 1,000-4,000 Units INTRAVENOUS PRN - nitroglycerin 50 mg in D5W 250 mL 5-200 mcg/min INTRAVENOUS CONTINUOUS - dextrose 40 % 15 g 15 g ORAL PRN Or - glucagon 1 mg injection (GLUCAGEN) 1 mg INTRAMUSCULAR PRN Or - dextrose 50 % 12.5 g injection 12.5 g INTRAVENOUS PRN - hydrALAZINE 50 mg tab(s) (APRESOLINE) 50 mg ORAL q 12 H - amLODIPine 10 mg tab(s) (NORVASC) 10 mg ORAL DAILY - cloNIDine HCl 0.2 mg tab(s) (CATAPRES) 0.2 mg ORAL TID - cyclobenzaprine 10 mg tab(s) (FLEXERIL) 10 mg ORAL TID PRN - diphenhydrAMINE 25 mg (BENADRYL) 25 mg ORAL q 6 H PRN - DULoxetine 30 mg cap(s) (CYMBALTA) 30 mg ORAL BID - famotidine 40 mg tab(s) (PEPCID) 40 mg ORAL DAILY - Fenofibrate 160 mg (LOFIBRA) 160 mg ORAL DAILY - fluticasone 50 mcg/actuation 1 [employer] (FLONASE) 1 [employer] EACH NOSTRIL DAILY - gabapentin (NEURONTIN) cap(s) 400 mg 400 mg ORAL QID - insulin lispro 15 Units injection (rapid acting) (HumaLOG) 15 Units SUBCUTANEOUS QID - ipratropium-albuterol 3 mL nebulizer solution (DUONEB) 3 mL INHALATION q 4 H PRN - isosorbide mononitrate ER 30 mg tab(s) (IMDUR) 30 mg ORAL DAILY - levETIRAcetam 250 mg tab(s) (KEPPRA) 250 mg ORAL BID - ondansetron 4 mg tab(s) (ZOFRAN) 4 mg ORAL q 6 H PRN - spironolactone 25 mg tab(s) (ALDACTONE) 25 mg ORAL BID - tamsulosin ER 0.4 mg cap(s) (FLOMAX) 0.4 mg ORAL DAILY - torsemide 40 mg tab(s) (DEMADEX) 40 mg ORAL DAILY - traZODone (DESYREL) tab(s) 150 mg 150 mg ORAL DAILY - hydrALAZINE 100 mg tab(s) (APRESOLINE) 100 mg ORAL TID - doxycycline hyclate 100 mg cap(s) (VIBRAMYCIN) 100 mg ORAL BID - insulin 70/30 insulin aspart prt/insulin aspart units/mL 100 Units injection (mixed intermediate and rapid acting) (NovoLOG MIX 70/30) 100 Units SUBCUTANEOUS TID - morphine SR 15 mg tab(s) (MS CONTIN, ORAMORPH SR) 15 mg ORAL q NOON - oxyCODONE IR 10 mg tab(s) (ROXICODONE) 10 mg ORAL q 12 H 6a/6p - HYDROmorphone 1 mg injection (DILAUDID) 1 mg INTRAVENOUS q 12 H PRN CURRENT ALLERGIES: Allergies As of Date: 04/12/2019 Allergen Noted Reaction HALDOL [HALOPERIDOL LACTATE] 08/07/2017 Mental Status Change VICODIN [HYDROCODONE-ACETAMINOPHE* Vomiting Fully Assessed 04/12/2019 COMPLETE REVIEW OF SYSTEMS: as above. Otherwise negative OBJECTIVE PHYSICAL EXAM: Temp (24hrs), Av.2 ?C (98.9 ?F), Min:36.9 ?C (98.4 ?F), Max:37.5 ?C (99.5 ?F) BP 132/66 Pulse 78 Temp (Src) 98.4 (Oral) Resp 12 Ht 5' 11 (1.80m) Wt 274 lb 14.6 oz (124.7kg) SpO2 93% BMI 38.36 kg/(m2). O2 Therapy: Room Air GENERAL:alert, no distress, cooperative, pleasant HEAD:Normocephalic, Atraumatic EYES: Sclera: Anicteric OROPHARYNX: Mucous membranes moist NECK: supple CARDIAC: Regular rhythm rate LUNGS: Lungs clear to auscultation. ABDOMEN: soft, obese, nt. RECTAL: Deferred EXTREMITIES: No Cyanosis, No Clubbing NEURO: oriented x 3 SKIN: No Jaundice DATA: Diagnostic tests reviewed for today's visit: CBC, Coags, BMP, Mg, Phos Recent Labs 04/13/19 0355 04/13/19 0207 04/12/19 1853 04/12/19 1728 04/12/19 1122 WBC 9.61 -- -- -- 11.44* HB 14.6 -- -- -- 16.3 HCT 44.4 -- -- -- 48.4 PLT 176 -- -- -- 221 INR -- -- -- 1.0 0.9 APTT -- 25.6 28.1 -- 24.4 NA 136 -- -- -- 139 K 4.3 -- -- -- 3.8 CHLOR 96* -- -- -- 96* CO2 21* -- -- -- 29 BUN 20 -- -- -- 17 CREAT 1.59* -- -- -- 1.60* GLUC 147* -- -- -- 133* CA 9.3 -- -- -- 10.0 Liver Function, Amylase, AND Lipase Recent Labs 04/13/19 0355 04/12/19 1122 TPROT -- 7.6 ALB -- 4.5 ALT -- 39 AST 99* 133* ALKPHOS -- 70 TBILI -- 0.3 LIPASE -- 8* Normal [facility] CONSULT PROGon 04-13-2019 CONSULT PROG HNO ID: [id number] Author: Samuel Belcher Jr. Service: Cardiovascular Disease Author Type: Physician Type: Consult Progress Note Filed: 04/13/2019 12:29 PM Note Text: General: Well nourished and in no acute distress. BP 117/66 Pulse 74 Temp 36.9 ?C (98.4 ?F) (Oral) Resp 24 Ht 180.3 cm (5' 11) Wt 124.7 kg (274 lb 14.6 oz) SpO2 91% BMI 38.34 kg/m? Skin warm and dry. Head atraumatic and normocephalic. Eyes anicteric w/o conjunctival injection. Oral mucosa moist. Psychiatric: Normal mood and affect. Neurologic: Moves all extremities. Alert No facial asymmetry. Speech fluent. Pulmonary: Good air movement without adventitious sounds. Cardiac: JVD or HJR: Not present at 45 degrees. No gallop, click or rub. PMI not palpable. Carotids 2+ w/o bruit. Murmur: none Pedal Edema: present GI: Abdomen soft and nontender w/o palpable organomegally. Musculoskeletal: No gross amputations. JHONATHAN 2, repeat 2 Stress test Monday tox screen only +benzodiazepines Normal [facility] Hemoglobin A1con 04-13-2019 HbA1c (Bld) [Mass fraction] 7.4 % High 4.3-5.6 [facility] Comment on above: Result Comment: [place] Diabetes Association guidelines indicate that patients with HgbA1c in the range 5.7-6.4% are at increased risk for development of diabetes, and intervention by lifestyle modification may be beneficial. HgbA1c greater or equal to 6.5% is considered diagnostic of diabetes. Performed By: #### H BA1C ####[facility], [place] [phone] HbA1c (Bld) [Mass fraction] 166 mg/dL Normal [facility] Comment on above: Result Comment: eAG: (Estimated average glucose) is a calculated value from HgbA1c and is distribution sales representative of the average blood glucose level in the last 2-3 month period. Performed By: #### H BA1C ####[facility], [place] [phone] NURSING PROGon 04-13-2019 NURSING PROG HNO ID: [id number] Author: Lauren Lopez (Rn) JERROD Gold Service: Nursing Author Type: Registered Nurse Type: Nursing Progress Note Filed: 04/14/2019 4:38 AM Note Text: Nursing Progress Note Patient Name: Chito Wells Patient Location: [facility]04/-CCU04-1 1930 Pt assessment done see flowsheet IV Heparin and IV NTG gtt infusing O2@2liters no c/o pain 2200 Pt resting comfortably 0000 Assessment done see flowsheet no c/o pain 0400 Assessment done see flowsheet no c/o pain This note was completed by: Lauren Gold RN [facility] NURSING PROG HNO ID: [id number] Author: Idania MarvinRn) JERROD Glez Service: Nursing Author Type: Registered Nurse Type: Nursing Progress Note Filed: 04/13/2019 6:34 PM Note Text: Nursing Progress Note Patient Name: Chito Wells [facility] Daily Note: 0700 Assumed care of patient, resting in bed. VSS 0745 ECHO at bedside. 0830 Assessment completed, see flowsheet. C/O back pain. Requesting PRN dilaudid- not available at this time. 1230 Assessment unchanged, VSS. Dr Belcher at bedside, plans for cardiac stress test Monday. 1630 Assessment unchanged, VSS. 1830 Paged endocrinology regarding low blood sugar. Orders to hold 1700/2100 lispro. Orders to also hold 70/30 at 2100 if blood sugar less than 150. This note was completed by: Idania Glez RN [facility] NURSING PROG HNO ID: [id number] Author: Rosalinda MarvinRn) JERROD Butcher Service: ? Author Type: Registered Nurse Type: Nursing Progress Note Filed: 04/13/2019 8:04 AM Note Text: Nursing Progress Note Patient Name: Chito Wells Patient [facility] Daily Note:1999- Assumed care of patient; who is angry, demanding different accomodations, and different pain medication; states he will leave the hospital if demands are not met. CHRISTAL MoellerGavin met with patient; we will attempt to work with him. 2029 NELIDA Montalvo spoke at length with patient with orders received. 2199- All meds given without difficulty. Pt states has had many back surgeries whichh make it difficult to lie in bed or use one of our recliner chairs. Monitor shows sinus rhythm . Chest clear; abdomen large soft with bowel sounds. Heparin drip per order. Nitro drip at 12 mcg. Resting and watching television without complaint at present. Monitor remains sinus rhythm. 04-13-2019-0400- Resting quietly with eyes closed. Monitor shows sinus rhythm. 0600-Overall; assessment is unchanged. This note was completed by: Rosalinda Butcher RN [facility] PROGRESSon 04-13-2019 PROGRESS HNO ID: [id number] Author: Chito Valentin Modestajennifer Service: Nephrology Author Type: Physician Type: Progress Notes Filed: 04/13/2019 3:24 PM Note Text: Please see my dictation [id number] [facility] PROGRESS HNO ID: [id number] Author: Nay Crooks Service: ? Author Type: Physician Type: Progress Notes Filed: 04/13/2019 3:17 PM Note Text: INTERNAL MEDICINE PROGRESS NOTE SERVICE DATE: 04/13/2019 SERVICE TIME: 2:53 pm ADMITTING PHYSICIAN: Samuel Belcher Jr. Subjective CHIEF COMPLAINT: in bed, not in severe distress Current Facility-Administered Medications Medication Dose Route Frequency - aspirin, enteric coated 81 mg tab(s) 81 mg ORAL DAILY - carvedilol 12.5 mg tab(s) (COREG) 12.5 mg ORAL BID w MEALS - perflutren lipid microspheres 1.1 mg/mL 1.3 mL injection ([facility]) 1.3 mL INTRAVENOUS DIRECTED PRN - heparin iv infusion (LOW DOSE ACS/NOMOGRAM) 25,000 units in NaCl 0.45% 250 mL PREMIX 0-3,000 Units/hr INTRAVENOUS CONTINUOUS And - heparin RATE CHANGE bolus 1,000-4,000 Units for subtherapeutic aptt results 1,000-4,000 Units INTRAVENOUS PRN - nitroglycerin 50 mg in D5W 250 mL 5-200 mcg/min INTRAVENOUS CONTINUOUS - dextrose 40 % 15 g 15 g ORAL PRN Or - glucagon 1 mg injection (GLUCAGEN) 1 mg INTRAMUSCULAR PRN Or - dextrose 50 % 12.5 g injection 12.5 g INTRAVENOUS PRN - hydrALAZINE 50 mg tab(s) (APRESOLINE) 50 mg ORAL q 12 H - amLODIPine 10 mg tab(s) (NORVASC) 10 mg ORAL DAILY - cloNIDine HCl 0.2 mg tab(s) (CATAPRES) 0.2 mg ORAL TID - cyclobenzaprine 10 mg tab(s) (FLEXERIL) 10 mg ORAL TID PRN - diphenhydrAMINE 25 mg (BENADRYL) 25 mg ORAL q 6 H PRN - DULoxetine 30 mg cap(s) (CYMBALTA) 30 mg ORAL BID - famotidine 40 mg tab(s) (PEPCID) 40 mg ORAL DAILY - Fenofibrate 160 mg (LOFIBRA) 160 mg ORAL DAILY - fluticasone 50 mcg/actuation 1 [employer] (FLONASE) 1 [employer] EACH NOSTRIL DAILY - gabapentin (NEURONTIN) cap(s) 400 mg 400 mg ORAL QID - insulin lispro 15 Units injection (rapid acting) (HumaLOG) 15 Units SUBCUTANEOUS QID - ipratropium-albuterol 3 mL nebulizer solution (DUONEB) 3 mL INHALATION q 4 H PRN - levETIRAcetam 250 mg tab(s) (KEPPRA) 250 mg ORAL BID - ondansetron 4 mg tab(s) (ZOFRAN) 4 mg ORAL q 6 H PRN - spironolactone 25 mg tab(s) (ALDACTONE) 25 mg ORAL BID - tamsulosin ER 0.4 mg cap(s) (FLOMAX) 0.4 mg ORAL DAILY - torsemide 40 mg tab(s) (DEMADEX) 40 mg ORAL DAILY - traZODone (DESYREL) tab(s) 150 mg 150 mg ORAL DAILY - doxycycline hyclate 100 mg cap(s) (VIBRAMYCIN) 100 mg ORAL BID - insulin 70/30 insulin aspart prt/insulin aspart units/mL 100 Units injection (mixed intermediate and rapid acting) (NovoLOG MIX 70/30) 100 Units SUBCUTANEOUS TID - morphine SR 15 mg tab(s) (MS CONTIN, ORAMORPH SR) 15 mg ORAL q NOON - oxyCODONE IR 10 mg tab(s) (ROXICODONE) 10 mg ORAL q 12 H 6a/6p - HYDROmorphone 1 mg injection (DILAUDID) 1 mg INTRAVENOUS q 12 H PRN INTERVAL HISTORY OF PRESENT ILLNESS: as above Objective PHYSICAL EXAM: Patient Vitals for the past 24 hrs: BP Temp Temp src Pulse Resp SpO2 Height Weight 04/13/19 1445 ? 37.4 ?C (99.3 ?F) Oral ? ? 92 % ? ? 04/13/19 1100 117/66 ? ? 74 ? 91 % ? ? 04/13/19 1000 125/62 ? ? 75 ? 91 % ? ? 04/13/19 0900 133/71 ? ? 92 24 94 % ? ? 04/13/19 0800 152/86 ? ? 73 12 90 % ? ? 04/13/19 0731 ? 36.9 ?C (98.4 ?F) Oral ? ? 93 % ? ? 04/13/19 0700 132/66 ? ? 78 12 91 % ? ? 04/13/19 0500 140/73 ? ? 73 14 94 % ? ? 04/13/19 0400 130/64 ? ? 78 26 91 % ? ? 04/13/19 0330 ? 37.1 ?C (98.8 ?F) Axillary ? 04/13/19 0300 139/70 ? ? 77 13 90 % ? ? 04/13/19 0200 133/64 ? ? 76 15 90 % ? ? 04/13/19 0100 142/77 ? ? 78 14 92 % ? ? 04/13/19 0000 149/80 37.5 ?C (99.5 ?F) Oral 80 12 91 % ? ? 04/12/19 2300 176/87 ? ? 79 ? 91 % ? ? 04/12/19 2233 166/90 ? ? 80 ? 93 % ? ? 04/12/19 2200 181/86 ? ? 79 (!) 32 92 % ? ? 04/12/19 2100 177/91 ? ? 77 25 95 % ? ? 04/12/192009 ? 37.2 ?C (98.9 ?F) Oral ? 04/12/19 2000 158/80 ? ? 83 (!) 31 95 % ? ? 04/12/19 1900 160/89 ? ? 83 29 94 % ? ? 04/12/19 1800 151/92 ? ? 77 18 93 % ? ? 04/12/19 1745 151/83 ? ? 72 15 92 % ? ? 04/12/19 1730 151/86 ? ? 71 13 92 % ? ? 04/12/19 1715 149/84 ? ? 73 15 92 % ? ? 04/12/19 1700 146/80 ? ? 73 24 94 % ? ? 04/12/19 1645 155/84 ? ? 71 20 93 % ? ? 04/12/19 1639 156/76 ? ? 72 16 96 % 180.3 cm (5' 11) 124.7 kg (274 lb 14.6 oz) 04/12/19 1630 157/91 ? ? 71 18 ? ? ? Body mass index is 38.34 kg/m?. GENERAL: Alert, no distress, cooperative LUNGS: Lungs clear to auscultation. No wheezing CARDIAC: + S1 and S2; no gallops ABDOMEN: Abdomen soft, non-tender, BS normal EXTREMITIES: No ulcers, + edema NEURO: Alert, oriented X 3, follows commands DATA: Diagnostic tests reviewed for today's visit: Results for CHITO WELLS ( ) as of 04/13/2019 14:54 Ref. Range 04/12/2019 17:28 04/13/2019 03:55 04/13/2019 09:49 Sodium Latest Ref Range: 136 - 144 mmol/L 136 Potassium Latest Ref Range: 3.7 - 5.1 mmol/L 4.3 Chloride Latest Ref Range: 97 - 105 mmol/L 96 (L) CO2 Latest Ref Range: 22 - 33 mmol/L 21 (L) BUN Latest Ref Range: 9 - 24 mg/dL 20 Creatinine Latest Ref Range: 0.73 - 1.22 mg/dL 1.59 (H) Glucose Latest Ref Range: 74 - 99 mg/dL 147 (H) Calcium Latest Ref Range: 8.5 - 10.2 mg/dL 9.3 AST Latest Ref Range: 14 - 40 U/L 99 (H) Anion Gap Latest Ref Range: 9 - 18 mmol/L 19 (H) Troponin T Latest Ref Range: 0.000 - 0.029 ng/mL 2.190 (H) 2.190 (H) Creatinine, Ur Random (UCRR) Latest Ref Range: 20 - 300 mg/dL 120.6 Hematocrit Latest Ref Range: 39.0 - 51.0 % 44.4 Results for CHITO WELLS ( ) as of 04/13/2019 14:54 Ref. Range 04/12/2019 11:22 04/13/2019 03:55 WBC Latest Ref Range: 3.70 - 11.00 k/uL 11.44 (H) 9.61 RBC Latest Ref Range: 4.20 - 6.00 m/uL 5.90 5.30 Hemoglobin Latest Ref Range: 13.0 - 17.0 g/dL 16.3 14.6 Hematocrit Latest Ref Range: 39.0 - 51.0 % 48.4 44.4 Platelet Count Latest Ref Range: 150 - 400 k/uL 221 176 MCV Latest Ref Range: 80.0 - 100.0 fL 82.0 83.8 MCH Latest Ref Range: 26.0 - 34.0 pG 27.6 27.5 MCHC Latest Ref Range: 30.5 - 36.0 g/dL 33.7 32.9 MPV Latest Ref Range: 9.0 - 12.7 fL 9.2 9.8 RDW-CV Latest Ref Range: 11.5 - 15.0 % 12.9 13.0 Results for CHITO WELLS ( ) as of 04/13/2019 14:54 Ref. Range 04/12/2019 22:19 04/13/2019 08:52 04/13/2019 14:45 Glucose, Point of Care Latest Ref Range: 74 - 99 mg/dL 282 (A) 227 (A) 146 (A) Assessment/Plan NSTEMI - stress test Monday - c/w cardiac meds per cardiology ? Uncontrolled DM type 2 - endo is following ? HTN - controlled ? HLP - Obtain FLP ?Backache/h/o MRSA infection/ OM in the spine- on doxycycline since 01/17/2017( per records - Chronic T11-S1 MRSA per records- was on chronic bactrim suppression( bactrim has been discontinued b/o renal insufficiency and started on doxycycline in 01/17/2017) - CT of the spine 12/05/2018: No acute fracture. ?Minimal compression fracture at L1 is favored chronic given similar appearance on x-ray 02/26/2018. ?Postoperative changes status multilevel decompressive laminectomies and hardware removal. ?Severe spinal canal stenosis at T10-T11. ? Multilevel level postoperative granulation tissue and heterotopic ossification likely contribute to mass effect on the thecal sac - c/w pain meds PRN H/o abnormal LFTs- Since 2017 - stable - h/o alcohol abuse- currently not drinking CKD stage 3 - stable Seizure discorder - on keppra - seizure precautions. Medication and Non-Pharmacologic VTE Prophylaxis/Anticoagulants Anticoagulant AND Antiplatelet Medications (From admission, onward) Start Dose Route Frequency Ordered Stop 04/13/19 0900 aspirin, enteric coated 81 mg tab(s) 81 mg ORAL DAILY 04/12/191712 -- 04/12/19 1730 heparin iv infusion (LOW DOSE ACS/NOMOGRAM) 25,000 units in NaCl 0.45% 250 mL PREMIX (Heparin Infusion + Rate Change Bolus) 0-30 mL/hr 0-3,000 Units/hr INTRAVENOUS CONTINUOUS 04/12/19 171 -- VTE Prophylaxis: VTE prophylaxis appropriate SIGNATURE: Nay Crooks MD PATIENT NAME: Chito Wells DATE: April 13, 2019 TIME: 2:53 PM PAGER/CONTACT #: Normal [facility] PROGRESS HNO ID: [id number] Author: Chito Thorpe Service: Nephrology Author Type: Physician Type: Progress Notes Filed: 04/14/2019 11:20 AM Note Text: [facility] Progress Note CHITO WELLS CSN#: [id number] PATIENT TYPE: LOCATION: [address] ORIGINATOR: Chito Thorpe MD DATE OF SERVICE: 04/13/2019 DATE OF SERVICE: 04/13/2019 TIME OF SERVICE: 03:25 PM We see this patient for stage 3 chronic kidney disease, admitted with a non-STEMI. He does have an acute component. His creatinine // at 2.190. He is on IV heparin, IV nitroglycerin, and he states that pain is 3/10. No changes in heart examination with positive S4. No wheezing or rhonchi. He is lying in bed, appears relaxed. Morbidly obese. No peripheral edema. Blood pressure 123/69, heart rate 72. He is to have a stress test on Monday. Given all of his risk factors, I would have very low objections to do a heart catheterization with as little dye as possible because it is almost guaranteed to be a positive heart catheterization. [facility]BA[facility] DOC: [id number] cc: Normal [facility] PROGRESS HNO ID: [id number] Author: Downtime Note Service: ? Author Type: ? Type: Progress Notes Filed: 04/13/2019 3:08 AM Note Text: Epic Scheduled Downtime: 04/13/2019 12:55:28 AM to 04/13/2019 2:53:52 AM Normal [facility] Protein/Creatinine Ratioon 0 04-13-2019 Creatinine,Urine,Ran 120.6 mg/dL Normal 20-300 [facility] Protein (U) [Mass/Vol] 536 mg/dL High 0-12 [facility] Protein/Creatinine Ratio 4.4 High <0.2 [facility] Troponin Ton 04-13-2019 Troponin T.cardiac [Mass/Vol] 2.190 ng/mL High 0.000-0.029 [facility] Comment on above: Result Comment: Resu lts may be falsely decreased due to interference by hemolysis. Suggest reorder as clinically indicated. Urgent value previously called 04/12/19 1816 APTTon 04-12-2019 aPTT Coag (Bld) [Time] 28.1 s Normal 23.0-32.4 [facility] Comment on above: Result Comment: Unfr actionated Heparin Therapeutic Ranges: Standard Heparin Nomogram: 53 to 78 seconds (anti-Xa level of 0.3 to 0.7 U/ml) Low Dose/ACS Nomogram: 49 to 67 seconds (anti-Xa level of 0.2 to 0.5 U/ml) Stroke Treatment Nomogram: 49 to 67 seconds (anti-Xa level of 0.2 to 0.5 U/ml) Note: The APTT therapeutic range has been determined for the current lot of laboratory APTT reagent in use throughout the [facility]. CONSULTon 04-12-2019 CONSULT HNO ID: [id number] Author: Binu Luciano Service: General Internal Medicine Author Type: Physician Type: Consults Filed: 04/12/2019 9:51 PM Note Text: CONSULT: Internal Medicine SERVICE SERVICE DATE: 04/12/2019 REASON FOR CONSULT: DM HTN backache elevated creat REQUESTING PHYSICIAN: Franchesca Belcher MD PRIMARY CARE PHYSICIAN: DO Denny Hopkins Mr. Wells is a 53 year old male who presents for chest pain. Found to have nstemi. Admitted to ccu under Dr. Belcher. Medicine consult requested as above. Pt complains of backache, he is under pain mgmt. No fever or chills Dm. On large doses of insulin. Denies hypoglycemia Elevated creatinine, denies hematuria. . 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 - Other and unspecified hyperlipidemia - Spinal stenosis in cervical region - Type II or unspecified type diabetes mellitus without mention of complication, uncontrolled (HCC) since 2000 - Unspecified essential hypertension since 1998 PAST SURGICAL HISTORY Procedure Laterality Date - BACK SURGERY HX pt has had 5 back surgeries, one which removed all of the hardware placed down his spinal column - HERNIA REPAIR HX x 3 - KNEE SCOPE,DIAGNOSTIC 4 on each knee - REMOVAL GALLBLADDER - STENT heart x2 FAMILY HISTORY Problem Relation Age of Onset - Hypertension Mother - Heart Father - Stroke Father Social History Tobacco Use - Smoking status: Current Every Day Smoker Packs/day: 0.50 Years: 25.00 Pack years: 12.50 Types: Cigarettes - Smokeless tobacco: Never Used - Tobacco comment: cig- 0.5-2 ppd. sometimes uses electric cig Substance Use Topics - Alcohol use: Not Currently Comment: hx social binge drinking greater than 10 yrs ago, quit - Drug use: No Comment: hx cocaine, heroin use 10 yrs ago, quit famotidine (PEPCID) 40 mg tablet, Take 40 mg by mouth once daily., Disp: , Rfl: , 04/12/2019 at 0900 cloNIDine HCl (CATAPRES) 0.2 mg tablet, Take 0.2 mg by mouth three times daily. , Disp: , Rfl: , 04/12/2019 at 0900 doxycycline hyclate (VIBRAMYCIN) 100 mg capsule, Take 100 mg by mouth twice daily. , Disp: , Rfl: , 04/12/2019 at 0900 Fenofibrate (LOFIBRA) 160 mg tablet, Take 160 mg by mouth., Disp: , Rfl: , 04/11/2019 at 2100 torsemide (DEMADEX) 20 mg tablet, Take 40 mg by mouth., Disp: , Rfl: , 04/12/2019 at 0900 traZODone (DESYREL) 50 mg tablet, Take 150 mg by mouth. , Disp: , Rfl: , 04/11/2019 at 2100 fluticasone (FLONASE) 50 mcg/actuation nasal spray, Use 1 [employer] in the nose., Disp: , Rfl: , 04/12/2019 at 0900 amLODIPine (NORVASC) 10 mg tablet, Take 10 mg by mouth once daily., Disp: , Rfl: , 04/12/2019 at 0900 morphine SR (MS CONTIN, ORAMORPH SR) 30 mg 12 hr tablet, Take 15 mg by mouth once daily. , Disp: , Rfl: , 04/11/2019 at 1200 oxyCODONE IR (ROXICODONE) 10 mg tab, Take 10 mg by mouth twice daily. , Disp: , Rfl: , 04/12/2019 at 0500 acetaminophen (TYLENOL EXTRA STRENGTH) 500 mg tablet, Take 1,000 mg by mouth every 6 hours as needed., Disp: , Rfl: , 04/11/2019 at Unknown time cyclobenzaprine HCl (CYCLOBENZAPRINE ORAL), Take 10 mg by mouth three times daily as needed., Disp: , Rfl: , 04/12/2019 at 0900 diphenhydrAMINE (BENADRYL ALLERGY) 25 mg tablet, Take 25 mg by mouth every 6 hours as needed for Itching/Rash., Disp: , Rfl: , 04/12/2019 at 0900 ipratropium-albuterol (DUONEB) 0.5 mg-3 mg(2.5 mg base)/3 mL nebu, Inhale 3 mL as instructed every 4 hours as needed., Disp: , Rfl: , Past Week at Unknown time ondansetron (ZOFRAN) 4 mg tablet, Take 4 mg by mouth every 6 hours as needed for Nausea/Vomiting. , Disp: , Rfl: , 04/12/2019 at 0900 isosorbide mononitrate ER (IMDUR) 30 mg 24 hr tablet, Take 30 mg by mouth once daily., Disp: , Rfl: , 04/12/2019 at 0900 carvedilol (COREG ORAL), Take 37.5 mg by mouth twice daily., Disp: , Rfl: , 04/12/2019 at 0900 spironolactone (ALDACTONE) 25 mg tablet, Take 25 mg by mouth twice daily., Disp: , Rfl: , 04/12/2019 at 0900 insulin aspart prot/insuln asp (NOVOLOG MIX 70-30 SUBCUTANEOUS), Inject 100 Units subcutaneously three times daily., Disp: , Rfl: , 04/12/2019 at 0900 insulin aspart (NOVOLOG FLEXPEN U-100 INSULIN SUBCUTANEOUS), Inject 15 Units subcutaneously four times daily. Pt takes Novolog 15 units SQ 4 times a day, Disp: , Rfl: , 04/12/2019 at 0900 hydrALAZINE (APRESOLINE) 100 mg tablet, Take 1 tablet by mouth three times daily., Disp: , Rfl: , 04/12/2019 at 0900 tamsulosin ER (FLOMAX) 0.4 mg cp24, Take 0.4 mg by mouth once daily., Disp: , Rfl: , 04/11/2019 at 2100 gabapentin (NEURONTIN) 400 mg capsule, Take 400 mg by mouth four times daily., Disp: , Rfl: , 04/12/2019 at 0900 levETIRAcetam (KEPPRA) 250 mg tablet, Take 250 mg by mouth twice daily., Disp: , Rfl: , 04/12/2019 at 0900 DULoxetine (CYMBALTA) 30 mg capsule, Take 30 mg by mouth twice daily. , Disp: , Rfl: , 04/12/2019 at 0900 ferrous sulfate 325 mg (65 mg iron) tablet, Take 325 mg by mouth., Disp: , Rfl: , Unknown at Unknown time menthol (BIOFREEZE, MENTHOL,) 4 % gel, Apply to affected area., Disp: , Rfl: , Unknown at Unknown time hydrocortisone 1 % cream, Apply to affected area twice daily., Disp: , Rfl: , Unknown at Unknown time Ascorbic Acid-Ascorbate Sodium 250 mg chew, Take 250 mg by mouth once daily., Disp: , Rfl: , 04/12/2019 at Unknown time hydrOXYzine HCl (ATARAX) 25 mg tablet, Take 25 mg by mouth three times daily as needed., Disp: , Rfl: , Unknown at Unknown time Current Facility-Administered Medications Medication Dose Route Frequency - [START ON 04/13/2019] aspirin, enteric coated 81 mg tab(s) 81 mg ORAL DAILY - carvedilol 12.5 mg tab(s) (COREG) 12.5 mg ORAL BID w MEALS - perflutren lipid microspheres 1.1 mg/mL 1.3 mL injection (DEFINITY) 1.3 mL INTRAVENOUS DIRECTED PRN - heparin iv infusion (LOW DOSE ACS/NOMOGRAM) 25,000 units in NaCl 0.45% 250 mL PREMIX 0-3,000 Units/hr INTRAVENOUS CONTINUOUS And - heparin RATE CHANGE bolus 1,000-4,000 Units for subtherapeutic aptt results 1,000-4,000 Units INTRAVENOUS PRN - heparin nomogram - NO INITIAL BOLUS OTHER ONCE (heparin bolus) - nitroglycerin 50 mg in D5W 250 mL 5-200 mcg/min INTRAVENOUS CONTINUOUS - dextrose 40 % 15 g 15 g ORAL PRN Or - glucagon 1 mg injection (GLUCAGEN) 1 mg INTRAMUSCULAR PRN Or - dextrose 50 % 12.5 g injection 12.5 g INTRAVENOUS PRN - hydrALAZINE 50 mg tab(s) (APRESOLINE) 50 mg ORAL q 12 H - amLODIPine 10 mg tab(s) (NORVASC) 10 mg ORAL DAILY - cloNIDine HCl 0.2 mg tab(s) (CATAPRES) 0.2 mg ORAL TID - cyclobenzaprine 10 mg tab(s) (FLEXERIL) 10 mg ORAL TID PRN - diphenhydrAMINE 25 mg (BENADRYL) 25 mg ORAL q 6 H PRN - DULoxetine 30 mg cap(s) (CYMBALTA) 30 mg ORAL BID - famotidine 40 mg tab(s) (PEPCID) 40 mg ORAL DAILY - Fenofibrate 160 mg (LOFIBRA) 160 mg ORAL DAILY - fluticasone 50 mcg/actuation 1 [employer] (FLONASE) 1 [employer] EACH NOSTRIL DAILY - gabapentin (NEURONTIN) cap(s) 400 mg 400 mg ORAL QID - insulin lispro 15 Units injection (rapid acting) (HumaLOG) 15 Units SUBCUTANEOUS QID - ipratropium-albuterol 3 mL nebulizer solution (DUONEB) 3 mL INHALATION q 4 H PRN - isosorbide mononitrate ER 30 mg tab(s) (IMDUR) 30 mg ORAL DAILY - levETIRAcetam 250 mg tab(s) (KEPPRA) 250 mg ORAL BID - ondansetron 4 mg tab(s) (ZOFRAN) 4 mg ORAL q 6 H PRN - spironolactone 25 mg tab(s) (ALDACTONE) 25 mg ORAL BID - tamsulosin ER 0.4 mg cap(s) (FLOMAX) 0.4 mg ORAL DAILY - torsemide 40 mg tab(s) (DEMADEX) 40 mg ORAL DAILY - traZODone (DESYREL) tab(s) 150 mg 150 mg ORAL DAILY - hydrALAZINE 100 mg tab(s) (APRESOLINE) 100 mg ORAL TID - doxycycline hyclate 100 mg cap(s) (VIBRAMYCIN) 100 mg ORAL BID - insulin 70/30 insulin aspart prt/insulin aspart units/mL 100 Units injection (mixed intermediate and rapid acting) (NovoLOG MIX 70/30) 100 Units SUBCUTANEOUS TID - [START ON 04/13/2019] morphine SR 15 mg tab(s) (MS CONTIN, ORAMORPH SR) 15 mg ORAL q NOON - oxyCODONE IR tab 10 mg (ROXICODONE) 10 mg ORAL q 12 H 6a/6p - HYDROmorphone 1 mg injection (DILAUDID) 1 mg INTRAVENOUS q 12 H PRN Allergies As of Date: 04/12/2019 Allergen Noted Reaction HALDOL [HALOPERIDOL LACTATE] 08/07/2017 Mental Status Change VICODIN [HYDROCODONE-ACETAMINOPHE* Vomiting Fully Assessed 04/12/2019 COMPLETE REVIEW OF SYSTEMS: All other systems are reviewed and negative. Objective PHYSICAL EXAM: Physical Exam Performed: BP 158/80 Pulse 83 Resp 31 Ht 5' 11 (1.80m) Wt 274 lb 14.6 oz (124.7kg) SpO2 95% BMI 38.36 kg/(m2). O2 Therapy: Room Air GENERAL: WD, WN,cooperative SKIN: No rashes or lesions. HEAD/SINUSES: No thrush/ulcers EYES: PERRLA and EOMI NOSE: Nares normal. Septum midline. OROPHARYNX: Lips, mucosa, and tongue normal. Oropharynx normal. NECK: no jugulovenous distention, no carotid bruits, carotid pulse normal contour, supple THYROID:not palpable LYMPH:no cervical adenopathy LUNGS: Lungs clear to auscultation. resonant CARDIAC: RRR, normal S1 and S2; no rubs, murmurs, or gallops ABDOMEN: Abdomen soft, non-tender. BS normal. EXTREMITIES: Extremities normal. No deformities, edema MUSCULOSKELETAL/NEUROLOGICAL : Sensation grossly intact., Cranial nerves II-XII grossly intact, sub prior equal B/L PULSES: 2+ radial DATA: Diagnostic tests reviewed for today's visit: Most recent labs Most recent imaging Most recent EKG Impression/Recommendations Active Problems: Myocardial infarct (HCC) POA: Yes Assessment AND Plan: asa Heparin and nitro drip per cardio Admitted to ccu Uncontrolled dm with possible nephropathy Endo and nephro eval Monitor creat Reordered home insulin doses, and ssi HTN Uncontrolled, Monitor On nitro drip HLP Check lipid panel Backache, meds reordered. Elevated ast possibly due to mi Recheck in am Thanks for the consult, we will follow the patient closely with you during the hospital stay. SIGNATURE: Binu Luciano MD PATIENT NAME: Chito Wells DATE: April 12, 2019 TIME: 9:15 PM PAGER: [facility] CONSULT HNO ID: [id number] Author: Chito Thorpe Service: Nephrology Author Type: Physician Type: Consults Filed: 04/12/2019 7:17 PM Note Text: [id number] Please see my dictation [facility] CONSULT HNO ID: [id number] Author: Samuel Belcher Jr. Service: Cardiovascular Disease Author Type: Physician Type: Consults Filed: 04/12/2019 5:26 PM Note Text: Dictated#[id number] NSTEMI CKD Elevated AST JHONATHAN tonight and tomorrow Echo IV heparin and ntg Consulted renal, GI, primary care [facility] CONSULT HNO ID: [id number] Author: Chito Hanson Maurilio Service: Nephrology Author Type: Physician Type: Consults Filed: 04/15/2019 9:27 AM Note Text: [facility] Consultation CHITO WELLS [facility]#: [id number] PATIENT TYPE: LOCATION: [address] ATTENDING PHYSICIAN: SAMUEL BELCHER JR ORIGINATOR: Chito Thorpe MD CONSULTING PHYSICIAN: Chito Thorpe MD DATE OF CONSULTATION: 04/12/2019 DATE OF SERVICE: 04/12/2019 TIME OF SERVICE: 07:15 PM HISTORY We are asked to see this patient for acute on chronic kidney failure. This is a gentleman who really comes with a loaded deck of cards against his kidneys. He has been a diabetic for 28 years with poor control. He has had hypertension for greater than 20 years with poor control. He smoked for 28 years, quit for nine, and has restarted, and when he was smoking during that 28-year period, he was smoking 2-3 packs of cigarettes a day. Right now, he is at a half pack of cigarettes a day. He is in a fdc for chronic back pain. He apparently had a spinal infection that he describes in 2013 and was quite sick. For the last six months, he has been taking ibuprofen 800 mg b.i.d. He believes he sees a tray setter somewhere in the [place] vicinity, cannot remember the name. His urinalysis has greater than 3+ protein in 2018 and he may have diabetic nephropathy. Admitted here with a non-STEMI with troponin of 2.190. Sodium 139, K 3.8, chloride 96, CO2 29, BUN 70, creatinine 1.6, calcium 10, albumin 4.5, AST 133, ALT 39. Note the AST-ALT ratio. Once looking through his chart, a lot of ER visits for back pain. PAST MEDICAL HISTORY As above. PAST SURGICAL HISTORY As above, also with remote cholecystectomy. FAMILY HISTORY Very positive for coronary artery disease. He made a comment that he is the only one left in his family. He has no significant other. No children. He has only a few friends in the fdc. He is clinically depressed. He said to tell you the truth doctor, if I were to tomorrow, I would not care. I have nothing to look forward to. ALCOHOL USAGE He has a history of drinking heavily in the past, says much less now. Illegal drug usage. History of cocaine usage, heroin usage 10 years ago. Denies now. I do not have recent toxicology screen; one in 2007 positive for benzodiazapine. MEDICATIONS Prior to admission: torsemide 40 mg daily, Desyrel, amlodipine 10 daily, MS Contin daily, oxycodone, Flexeril, Zofran, Lofibra. PHYSICAL EXAMINATION On examination, he is obese. Blood pressure 160/89, heart rate 83. He is sitting up and eating. Has a very laissez-faire attitude. Decreased air exchange, but no wheezes or rhonchi. Positive S4. 03/25 decrescendo systolic murmur. No asterixis. Positive distal neuropathy. Positive history of retinopathy by the way. No skin rashes. Did not cooperate well with listening to carotid bruits. No midline abdominal bruit. Only trace ankle edema. Intact distal pulses. IMPRESSION/MANAGEMENT/PLAN This patient has many risk factors for heart disease. He has smoking, diabetes, hypertension, obesity, family history. He has risk factors for renal disease, smoking, diabetes, proteinuria, obesity, hypertension. In addition to that, thrown in the ibuprofen he has been using. Management: At this point in time, first thing I am going to do is to get his blood pressure under a little bit better control. I am going to increase his hydralazine from 25 to 50 mg and leave him on carvedilol for right now. I am going to get a urine for a protein creatinine ratio. We will get a hemoglobin A1c in the am. I explained to the patient that if indeed he has significant proteinuria, and it is secondary to diabetes, that I have told him instantly that he needs to go on dialysis Monday, and our job will be to try to postpone that. Whether he will be willing to cooperate with us is an entirely different issa. I would hold off on doing the heart catheterization, as if he got an acute component secondary to the usage of the ibuprofen we might get a little bit better kidney function in the next of couple days and also he is not having any urgent chest pain as we speak. revised 04/15/2019 [facility] [employer] [facility] DOC: [id number] cc: Normal [facility] HISTORY PHYSICALon 0 HISTORY PHYSICAL HNO ID: [id number] Author: Samuel Belcher Jr. Service: Cardiovascular Disease Author Type: Physician Type: HANDP Filed: 04/18/2019 4:04 PM Note Text: [facility] History Physical CHITO WELLS [facility]#: [id number] PATIENT TYPE: LOCATION: [facility] ORIGINATOR: Samuel Belcher MD DATE OF SERVICE: 04/12/2019 TIME OF SERVICE: 05:20 PM REASON FOR ADMISSION NSTEMI, hypertension. HISTORY OF PRESENT ILLNESS Robert, 53-year-old, rehab patient, developed some chest discomfort, came to the emergency room, discovered to have elevated high-sensitivity troponin. Presently pain-free, on IV nitroglycerin and heparin. PAST MEDICAL HISTORY Coronary artery disease with stents, hypertension, hyperlipidemia, anxiety, depression, seizure disorder, low back pain with operations. SOCIAL HISTORY The patient is , still smoking some cigarettes. FAMILY HISTORY Positive for mother with hypertension. Father with heart disease and stroke. MEDICATIONS Include amlodipine, aspirin, Coreg, clonidine, Pepcid, fenofibrate, iron, gabapentin, hydralazine, torsemide. REVIEW OF SYSTEMS A 12-point review of systems shows CHF due to diastolic dysfunction, BPH, anemia of chronic disease, drug abuse, GERD, chronic kidney disease, cholecystectomy, spinal stenosis, diabetes. Allergies or reactions to Haldol and Vicodin. Other 12-point review of systems negative or noncontributory. PHYSICAL EXAMINATION GENERAL: Here, lying in bed, no distress. Weight is 127.4 kg. VITAL SIGNS: Heart rate 72, blood pressure 156/76. EYES: Show no lesions. MOUTH: Shows moist mucous membranes. HEAD: No trauma. NECK: Carotids 2+. LUNGS: Clear. HEART: Rhythm is regular. No murmurs. ABDOMEN: Good bowel sounds. No hepatosplenomegaly. No tenderness or bruits. EXTREMITIES: Lower extremities show trace edema. SKIN: Shows tattoos and lower extremity discoloration. JOINTS: Show no swelling. NEUROLOGICAL: Oriented x3. PSYCHOLOGICAL: Calm. LABORATORY DATA EKG shows sinus rhythm, LVH, high lateral T-wave inversions. Hemoglobin 16.3. Creatinine 1.67, BUN 24, potassium 3.8, AST 133. High-sensitivity troponin 2046, repeat 2086. ASSESSMENT AND PLAN Possible wor-BR-iixaieopi myocardial infarction, although his high-sensitivity troponins are flat. We will do a troponin T tonight and tomorrow morning, echo of his heart, held the torsemide, and because of his creatinine going up, I have consulted Renal, GI, and primary care. [facility] DOC: [id number] cc:Toñito Yadav, [facility] NURSING PROGon 04-12-2019 NURSING PROG HNO ID: [id number] Author: Cathi MarvinRn) JERROD Collins Service: ? Author Type: Registered Nurse Type: Nursing Progress Note Filed: 04/12/2019 7:40 PM Note Text: Nursing Progress Note Patient Name: Chito Wells Patient Location: [place] [address] [address] Daily Note: 1622 Patient arrived to CCU, hooked up to monitors. EKG printed. Assessment as charted, rating pain 6/10 in back. C/o 2/10 Mid-sternal chest discomfort. Heparin and Nitro gtt running per MAY. 1699 Dr Belcher at bedside, see orders. [address] Luciano regarding home medications and insulin coverage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 AM Note Text: remedicated for pain per dr. dodd [facility] ED NOTE HNO ID: [id number] Author: Nahomi MarvinRnElder Patel RN Service: Emergency Medicine Author Type: Registered Nurse Type: ED Notes Filed: 11/24/2018 10:52 PM Note Text: Pt states he has uncontrolled back pain. He has had 5 spinal surgeries and is currently living in a rehab facility He states for the last 3 days he has had right hip pain. Lat surgery was in 2014. He denies falling or injuring his back. He can not get his pain under control. [facility] ED PROV NOTEon 11-25-2018 ED PROV NOTE HNO ID: [id number] Author: Nahomi Pepe MD Service: Emergency Medicine Author Type: Physician Type: ED Provider Notes Filed: 11/26/2018 2:28 AM Note Text: ED Provider Note Patient Name: Chito Wells SERVICE DATE: 11/24/18 History Patient presents with: Back Pain The patient is a 52-year-old male presenting today for complaint of back pain. Patient states he has a history of chronic back pain. He's had fusion of his lumbar spine as well as removal of all the hardware secondary to osteomyelitis. He states he is diagnosed with chronic osteomyelitis is on doxycycline twice a day. He also has a portion of his previous site incision that will open and drain pus for which is being watched by wound care. He states that he thinks all his chronic issues are doing well. He has not had any purulent drainage from the wound. He is here because is concerned he started having a different type of back pain near the upper portion of his incision. He states usually his pain is in the lower levels of his incision into sacral spine. He states about 2 days ago he started having pain and points to the L1 area with radiation down the right side into the buttock area. He denies any radiculopathy down the right leg. He denies any trauma to his back. He states his baseline gait is hunched over on a roll later because he is unable to stand up straight secondary to the removal of the fusion hardware with his osteomyelitis. Patient thinks he's been running a vital 99-100 low-grade fever for the last week. He just states she's been breaking out in a sweat for the last 4 days. He has approached the nurse practitioner at his [facility] about his symptoms as well as his aspirin increase in pain medication. He is currently on extended release morphine 30 mg twice a day as well as oxycodone 15 mg twice a day. For the pain is also taking ibuprofen and Tylenol over the last 2 days. He states none of it is helping. He approached the nurse practitioner again today about his symptoms that she sent him to the emergency department for evaluation. Patient denies any difficulties with his gait. Denies bowel or bladder incontinence. He rates his pain currently an 8 out of 10 on the pain scale and states his chronic back pain is usually a 4 out of 10 on the pain scale. He is not currently following with any physical therapist, neurosurgeon, or orthopedist. He states is been years since she's had imaging to his back. He does state that he has some history of sepsis due to the osteomyelitis when it will flare periodically over the last several years. He has been hospitalized twice for this. He states he's a history of diabetes which is why he comes infected. 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 - Other and unspecified hyperlipidemia - Spinal stenosis in cervical region - Type II or unspecified type diabetes mellitus without mention of complication, uncontrolled (HCC) since 2000 - Unspecified essential hypertension since 1998 PAST SURGICAL HISTORY Procedure Laterality Date - BACK SURGERY HX pt has had 5 back surgeries, one which removed all of the hardware placed down his spinal column - KNEE SCOPE,DIAGNOSTIC 4 on each knee FAMILY HISTORY Problem Relation Age of Onset - Hypertension Mother - Heart Father - Stroke Father Social History Tobacco Use - Smoking status: Current Every Day Smoker Packs/day: 0.50 Years: 25.00 Pack years: 12.50 Types: Cigarettes - Smokeless tobacco: Never Used - Tobacco comment: cig- 0.5-2 ppd. sometimes uses electric cig Substance and Sexual Activity - Alcohol use: Not Currently Comment: hx social binge drinking greater than 10 yrs ago, quit - Drug use: No Comment: hx cocaine use 10 yrs ago, quit - Sexual activity: Not on file Comment: not asked ALLERGIES Allergen Reactions - Haldol [Haloperidol* Mental Status Change - Vicodin [Hydrocodon* Vomiting tolerates Review of Systems Constitutional: Negative for activity change, appetite change, chills, fatigue and fever. HENT: Negative for congestion, ear pain, rhinorrhea and sore throat. Respiratory: Negative for cough and shortness of breath. Cardiovascular: Negative for chest pain and palpitations. Gastrointestinal: Negative for abdominal pain, diarrhea, nausea and vomiting. Genitourinary: Negative for dysuria, frequency and urgency. Musculoskeletal: Positive for back pain. Negative for gait problem, myalgias and neck pain. Skin: Negative for rash and wound. Neurological: Negative for dizziness, weakness, numbness and headaches. All other systems reviewed and are negative. Physical Exam BP 165/88 Pulse 66 Temp (Src) 97.7 (Temporal) Resp 16 Wt 280 lb (127.0kg) SpO2 96% Physical Exam Constitutional: He is oriented to person, place, and time. He appears well-developed and well-nourished. No distress. HENT: Head: Normocephalic and atraumatic. Nose: Nose normal. Eyes: Pupils are equal, round, and reactive to light. EOM are normal. Neck: Normal range of motion. Neck supple. Cardiovascular: Normal rate, regular rhythm and normal heart sounds. Exam reveals no gallop and no friction rub. No murmur heard. Pulmonary/Chest: Effort normal and breath sounds normal. No stridor. No respiratory distress. He has no wheezes. He has no rales. Abdominal: Soft. Bowel sounds are normal. He exhibits no distension. There is no tenderness. There is no rebound and no guarding. Musculoskeletal: Thoracic back: Normal. Lumbar back: He exhibits decreased range of motion and tenderness. He exhibits no bony tenderness, no swelling, no edema, no deformity, no laceration, no pain and no spasm. Back: There is no tenderness to palpation over the bones of the lumbar spine. There is paraspinal tenderness palpation of the right back all the way down into the buttock and muscles here. Tight although I don't specifically feel any spasm Neurological: He is alert and oriented to person, place, and time. No cranial nerve deficit or sensory deficit. Coordination normal. GCS eye subscore is 4. GCS verbal subscore is 5. GCS motor subscore is 6. 5 out of 5 strength in bilateral upper and lower extremities. Patient has a hunched gait but this is his baseline. Skin: Skin is warm and dry. Psychiatric: He has a normal mood and affect. His behavior is normal. Nursing note and vitals reviewed. Diagnostic Testing ED Labs Ordered and Reviewed BASIC METABOLIC PANEL (AK,AV,EU,FV,HL,FLIP,MM,SP) - Abnormal; Notable for the following components: Result Value Ref Range Sodium 135 (*) 136 - 145 mEq/L Potassium 3.1 (*) 3.5 - 5.1 mEq/L Glucose 176 (*) 70 - 99 mg/dL Calcium 7.8 (*) 8.5 - 10.1 mg/dL All other components within normal limits CBC + AUTO DIFF (AK,AV,EU,FV,HL,FLIP,MM,SP) - Abnormal; Notable for the following components: Hematocrit 38.9 (*) 39.6 - 50.7 % MCHC 35.7 (*) 31.9 - 35.6 % MPV 8.7 (*) 8.8 - 12.1 fl Abs. Jennings 0.86 (*) 0.19 - 0.80 thou/cmm All other components within normal limits MDRD GFR Procedures ED Course / Clinical Impression Clinical Impressions as of Nov 27 219 Acute right-sided low back pain without sciatica MDM / Disposition / Plan The patient seen and examined. History of physical were obtained. Based on history and physical, above diagnostic studies were obtained. Patient sees pain medication and nausea medication. He had IV placed. With his history of sepsis and osteomyelitis with recurrent flares I did evaluate the patient's laboratory studies as well as did CT scan the lumbar spine looking for any obvious signs of osteomyelitis or abscess formation. Laboratory studies returned showing no acute abnormalities. CT scan of the lumbar spine also showed chronic changes but no acute abnormalities or signs of acute infection or osteomyelitis. Patient made aware of all results. He did receive an additional dose of medication. We long discussion about pain control. I told him I don't really have anything I can add to his current pain regimen concerning fact the patient is maxed out on most medical therapies. I did discuss with them doing more outpatient treatment at a physiatry clinic associated with clinic [facility]. They revealed a help his pain with other modalities such as trigger point injections TENS unit ultrasound and other modes of 5 therapy. Patient is open to this idea. He does not wish to stay in the hospital at this time. He is agreeable to going back to his assisted living facility There is nothing acutely wrong. He is going to follow up with the nurse practitioner at the facility as well as follow-up with a physiatry clinic. I gave him a referral to. Disposition The patient was discharged. Counseled patient regarding suspected diagnosis, radiology results and lab results. As well as the need for follow-up. Discharged home with verbal and written instructions. They were instructed to return as needed for persistent or worsening symptoms or any new concerns. Condition at disposition is stable. SIGNATURE: MD Nahomi Wade MD 11/26/18 0228 [facility] Emergency Room Visit Reporto n 11-10-2016 Emergency Room Visit Report [address], [place] [address] CHITO WELLS 1965 (50 M) [id number] Tommie Avila MD ED Report #: [id number] PCP: Castro Jung MD Emergency Room Visit Report Date of Service: 11/10/16 Date/Time: 11/10/162021 Report Status: Signed Back Pain/Injury HPI Condition on Arrival: Fair Information Source: patient Mode of Arrival: ambulance/EMS Support System: None - Travel Screening Traveled Out Of Country In Last 30 Days: No (Or) Been in Contact With Ill Person Who Has Traveled: No - History of Present Illness Complaint: back pain Description of Symptoms: Patient complains of chronic low back pain since 2012. States that he's had 5 surgeries. Patient's PCP called and states that the patient is coming because his PCP has been weening him off of his pain medication. Associated Symptoms: difficulty walking Date of Onset (approx): 11/10/16 Improves With: none Worsens With: none Treatment PSYCHOLOGIST PRIVATE PRACTICE: none HPI: 50-year-old male with a history of chronic back pain complaining of back pain. The patient states that he got up off the toilet today fell backwards and struck his bottom. Since then he has had worse pain than usual. He takes Percocet 30s 3 times a day. He is in a fdc with a new doctor there has cut back on everyone, he states. He cannot sleep tonight because of the pain. He rates his pain 8/10 dull constant aching bilateral occasionally radiating down the right leg. he denies fevers chills nausea vomiting diarrhea nor any other complaints - Pain Assessment Lower Back Intensity: 9 Behavior: Calm, Smiling - Immunizations Immunizations Up to Date: yes - Allergies/Home Meds Allergy to Contrast: No Allergy to Iodine/Shellfish: No Allergies Allergy/AdvReac Type Severity Reaction Status Date / Time haloperidol [From Haldol] Allergy Verified 11/10/16 19:14 haloperidol lactate Allergy Verified 11/10/16 19:14 [From Haldol] hydrocodone Allergy Verified 11/10/16 19:14 Home Medications Medication Instructions Recorded Confirmed Acetaminophen [Mapap] 1,000 mg PO QID PRN 06/07/16 10/27/16 Amlodipine Besylate [Norvasc] 5 mg PO DAILY 06/07/16 10/27/16 Ascorbic Acid [Vitamin C] 250 mg PO DAILY 06/07/16 10/27/16 Aspirin 81 mg PO DAILY 06/07/16 10/27/16 Carvedilol [Coreg] 37.5 mg PO BID 06/07/16 10/27/16 Chlorphenir/Phenyleph/Aspiri n 2 each PO Q4-6H PRN 06/07/16 10/27/16 [[place] Plus Cold Tab Eff] Clonidine HCl 0.2 mg PO TID 06/07/16 10/27/16 Cyclobenzaprine HCl [Flexeril =] 10 mg PO TID PRN 06/07/16 10/27/16 Ergocalciferol (Vitamin D2) 50,000 unit PO QWEEKLY 06/07/16 10/27/16 [Vitamin D2] Fenofibrate [Lofibra] 160 mg PO DAILY 06/07/16 10/27/16 Ferrous Sulfate [Feosol =] 325 mg PO BIDFE 06/07/16 10/27/16 Fluticasone Propionate [Flonase 1 spray NS BID 06/07/16 10/27/16 50mcg/spray =] Furosemide [Lasix =] 60 mg PO DAILY 06/07/16 10/27/16 Gabapentin [Neurontin] 600 mg PO BID 06/07/16 10/27/16 Guaifenesin/Dextromethorphan 10 ml PO QID PRN 06/07/16 10/27/16 [Guaifenesin Dm Syrup] Hydralazine HCl 100 mg PO TID 06/07/16 10/27/16 Hydroxyzine HCl 25 mg PO BID 06/07/16 10/27/16 Insulin Aspart [Novolog Flexpen =] 2 - 10 unit SC QID 06/07/16 10/27/16 Insuln Asp Prt/Insulin Aspart 100 unit SC AC 06/07/16 10/27/16 [NovoLOG MIX 70-30 FLEXPEN =] Isosorbide Mononitrate [Isosorbide 30 mg PO DAILY 06/07/16 10/27/16 Mononitrate ER] Levetiracetam 250 mg PO BID 06/07/16 10/27/16 Loperamide HCl [Loperamide] 2 mg PO PRN PRN 06/07/16 10/27/16 Omeprazole [Prilosec] 20 mg PO DAILY 06/07/16 10/27/16 Ondansetron HCl [Zofran] 4 mg PO Q4-6H PRN 06/07/16 10/27/16 Tamsulosin HCl [Flomax =] 0.8 mg PO DAILY 06/07/16 10/27/16 guaiFENesin [Mucinex =] 600 mg PO DAILY 06/07/16 10/27/16 Amitriptyline HCl 25 mg PO HS 10/18/16 10/27/16 Duloxetine HCl [Cymbalta] 60 mg PO DAILY 10/18/16 10/27/16 Oxycodone HCl 30 mg PO Q6H PRN #10 tablet 10/18/16 10/27/16 Potassium Chloride 40 meq PO DAILY 10/18/16 10/27/16 Sulfamethoxazole/Trimethopri m 1 tab PO BID 10/18/16 10/27/16 [Bactrim Ds 800/160 mg =] Insulin Aspart [NovoLOG] 5 unit SC AC 10/27/16 10/27/16 diphenhydrAMINE HCl [Benadryl] 50 mg PO TID PRN 10/27/16 10/27/16 ROS Review of Systems: REVIEW OF SYSTEMS: CONSTITUTIONAL: No weight loss, fever, chills, weakness or fatigue. HEENT: Eyes: No visual loss, blurred vision, double vision or yellow sclerae. Ears, Nose, Throat: No hearing loss, sneezing, congestion, runny nose or sore throat. SKIN: No rash or itching. CARDIOVASCULAR: No chest pain, chest pressure or chest discomfort. No palpitations or edema. RESPIRATORY: No shortness of breath, cough or sputum. GASTROINTESTINAL: No anorexia, nausea, vomiting or diarrhea. No abdominal pain or blood. GENITOURINARY: No dysuria or frequency NEUROLOGICAL: No headache, dizziness, syncope, paralysis, ataxia, numbness or tingling in the extremities. No change in bowel or bladder control. MUSCULOSKELETAL: Back pain otherwise no muscle, joint pain or stiffness. HEMATOLOGIC: No anemia, bleeding or bruising. LYMPHATICS: No enlarged nodes. No history of splenectomy. PSYCHIATRIC: No history of depression or anxiety. ENDOCRINOLOGIC: No reports of sweating, cold or heat intolerance. No polyuria or polydipsia. ALLERGIES: No history of asthma, hives, eczema or rhinitis. Past Medical History Neurological: Cerebrovascular Accident (2008), Peripheral Neuropathy, Seizures (takes keppra- last seizure 7 yrs ago), Other (PTSD) Psycho/Social Medical History: Anxiety, Substance Use Disorder Endocrine: Diabetes Cardiovascular: Angina, Congestive Heart Failure, Coronary Artery Disease, Hypercholesterolemia, Hypertension, Myocardial Infarction (x2) Hematologic: Anemia Musculoskeletal: Back Pain, Osteoarthritis, Osteoporosis, Other (discitis of thorarcic region, osteomyelitis of vertebrae) GI: GERD : Inguinal Hernia, Other (hiatal hernia,) Other Medical History: Current MDRO (MRSA), MRSA (back wound) Surgical History: Abdominal Surgery, Back Surgery, Cardiac Catheterization, Cholecystectomy, Coronary Stent (2 stents placed 2008), Hernia Repair-Inguinal, Hernia Repair-Umbilical, Other - Social History Smoking Status: Former Smoker # Packs per Day: 2 Packs per Day # Years Smoked: 28 Packs per Year Hx: 56 Alcohol Use: None Drug Use: None Physical Exam PHYSICAL EXAMINATION: GENERAL: The patient is well-developed, well-nourished obese male in no apparent distress. Alert and oriented x3. HEENT: Head is atraumatic and normocephalic. Extraocular muscles are intact. Pupils are equal, round, and reactive to light and accommodation. Nares appear normal. Mucous membranes are moist. Posterior pharynx clear of any exudate or lesions. NECK: Supple. No carotid bruits. No lymphadenopathy or thyromegaly. No meningismus LUNGS: Clear to auscultation. Bilateral breath sounds. No respiratory distress, no accessory muscle use HEART: Regular rate and rhythm without murmur. ABDOMEN: Soft, nontender, nondistended. Positive bowel sounds. No hepatosplenomegaly was noted. Musculoskeletal: Bilateral para lumbar pain to palpation, no midline pain, FROM, no effusions, no deformities NEUROLOGIC: Cranial nerves II through XII are grossly intact. No focal deficits. Equal 5/5 strength bilaterally SKIN: No rash, ulceration, induration, cyanosis, clubbing Vital Signs on Arrival Temperature 98.1 F 11/10/16 19:11 Pulse Rate 83 11/10/16 19:11 Respiratory Rate 18 11/10/16 19:11 Blood Pressure 185/87 H 11/10/16 19:11 Vital Signs - Last Documented Temperature 98.1 F 11/10/16 19:15 Pulse Rate 83 11/10/16 19:15 Respiratory Rate 18 11/10/16 19:15 Blood Pressure 185/87 H 11/10/16 19:15 O2 Sat by Pulse Oximetry 97 11/10/16 19:15 Vital signs reviewed: reviewed and appear correct Back Pain/Injury MDM 50-year-old male presents with acute exacerbation of chronic back pain. The patient has no evidence of neurosurgical emergency, particularly spinal epidural abscess nor cauda equina syndrome. He is already taking Percocet and requires follow up with a spine and pain specialist. He is given instructions to follow up as well as return instructions. Disposition - Disposition Clinical Impression: Chronic back pain Qualifiers: Back pain location: low back pain Back pain laterality: bilateral Sciatica presence: with sciatica Sciatica laterality: sciatica of right side Qualified Code(s): M54.41 - Lumbago with sciatica, right side; G89.29 - Other chronic pain Prescriptions/Home Medication: No Action Hydralazine HCl 100 mg PO TID Ondansetron HCl [Zofran] 4 mg PO Q4-6H PRN PRN Reason: Nausea / Vomiting Ergocalciferol (Vitamin D2) [Vitamin D2] 50,000 unit PO QWEEKLY Chlorphenir/Phenyleph/Aspiri n [[place] Plus Cold Tab Eff] 2 each PO Q4-6H PRN PRN Reason: Miscellaneous Ferrous Sulfate [Feosol =] 325 mg PO BIDFE Guaifenesin/Dextromethorphan [Guaifenesin Dm Syrup] 10 ml PO QID PRN PRN Reason: Cough Fenofibrate [Lofibra] 160 mg PO DAILY Aspirin 81 mg PO DAILY Omeprazole [Prilosec] 20 mg PO DAILY Furosemide [Lasix =] 60 mg PO DAILY Insulin Aspart [Novolog Flexpen =] 2 - 10 unit SC QID Tamsulosin HCl [Flomax =] 0.8 mg PO DAILY Gabapentin [Neurontin] 600 mg PO BID Amlodipine Besylate [Norvasc] 5 mg PO DAILY Loperamide HCl [Loperamide] 2 mg PO PRN PRN PRN Reason: Diarrhea Cyclobenzaprine HCl [Flexeril =] 10 mg PO TID PRN PRN Reason: Muscle Spasms Carvedilol [Coreg] 37.5 mg PO BID Acetaminophen [Mapap] 1,000 mg PO QID PRN PRN Reason: Pain Hydroxyzine HCl 25 mg PO BID Levetiracetam 250 mg PO BID guaiFENesin [Mucinex =] 600 mg PO DAILY Insuln Asp Prt/Insulin Aspart [NovoLOG MIX 70-30 FLEXPEN =] 100 unit SC AC Ascorbic Acid [Vitamin C] 250 mg PO DAILY Isosorbide Mononitrate [Isosorbide Mononitrate ER] 30 mg PO DAILY Fluticasone Propionate [Flonase 50mcg/spray =] 1 spray NS BID Clonidine HCl 0.2 mg PO TID Amitriptyline HCl 25 mg PO HS Sulfamethoxazole/Trimethopri m [Bactrim Ds 800/160 mg =] 1 tab PO BID Duloxetine HCl [Cymbalta] 60 mg PO DAILY Potassium Chloride 40 meq PO DAILY Oxycodone HCl 30 mg PO Q6H PRN #10 tablet PRN Reason: Pain Insulin Aspart [NovoLOG] 5 unit SC AC diphenhydrAMINE HCl [Benadryl] 50 mg PO TID PRN PRN Reason: Itching Follow-Up: Castro Jung MD [Primary Care Provider] - 2-3 Days, If Not Better Patient Education: Chronic Back Pain (ED) Electronically Signed By: Tommie Avila MD 11/10/162027 Electronically Cosigned By: Cosigned Date/Time: [facility] Emergency Room Visit Reporto n 10-27-2016 Emergency Room Visit Report [address] [id number] [place] WELLS 1965 (50 M) [id number] [facility] ED Report #: [id number] PCP: Castro Jung MD Emergency Room Visit Report Date of Service: 10/27/16 Date/Time: 10/27/161901 Report Status: Signed Addendum Addendum - Addendum Addendum: Back: Good range of motio, no pain on palpation throughout the thoracic lumbar aspect of the back Electronically Signed By: OLGA Wolfe Signed Date/Time: 11/17/162009 OLGA Wolfe 11/18/16 0955 Back Pain/Injury HPI Condition on Arrival: Stable Information Source: patient, EMS, ECF nurse Mode of Arrival: ambulance/EMS Limitations: physical limitation Lives With: fdc Support System: None - Travel Screening Traveled Out Of Country In Last 30 Days: No (Or) Been in Contact With Ill Person Who Has Traveled: No - History of Present Illness Complaint: back pain Description of Symptoms: Pt has chronic backpain from osteomylitis. Pt c/o worsening back pain since fall x3 days ago. Pt state that his Oxycodone was decreased. Associated Symptoms: denies other symptoms Date of Onset (approx): 10/24/16 Context: fall Worsens With: movement Treatment PSYCHOLOGIST PRIVATE PRACTICE: acetaminophen, prescription analgesics Other Treatment PSYCHOLOGIST PRIVATE PRACTICE: Gabapentin Hx Similar Symptoms: Yes This is a 50-year-old white male presents emergency department from [facility] care facility raised permanent resident states he has a history of chronic back pain recently has some osteomyelitis of the lumbar spine and fell 3 days ago onto his back patient complains of increasing pain in his lower back which she states is achy in nature worse with movement of his lower back. Patient denies any numbness or paresthesias, fever or chills came radiation of the pain, saddle anesthesia or any other complaints. - Pain Assessment Back Intensity: 8 Description: Chronic Behavior: Calm - Immunizations Immunizations Up to Date: yes Patient Tetanus UTD (Within 5 Years): yes Flu Vaccine: seasonal Pneumonia Vaccine: yes - Allergies/Home Meds Allergy to Contrast: No Allergy to Iodine/Shellfish: No Allergies Allergy/AdvReac Type Severity Reaction Status Date / Time haloperidol [From Haldol] Allergy Verified 06/07/16 07:14 haloperidol lactate Allergy Verified 06/07/16 07:14 [From Haldol] hydrocodone Allergy Verified 06/07/16 07:14 Home Medications Medication Instructions Recorded Confirmed Acetaminophen [Mapap] 1,000 mg PO QID PRN 06/07/16 10/27/16 Amlodipine Besylate [Norvasc] 5 mg PO DAILY 06/07/16 10/27/16 Ascorbic Acid [Vitamin C] 250 mg PO DAILY 06/07/16 10/27/16 Aspirin 81 mg PO DAILY 06/07/16 10/27/16 Carvedilol [Coreg] 37.5 mg PO BID 06/07/16 10/27/16 Chlorphenir/Phenyleph/Aspiri n 2 each PO Q4-6H PRN 06/07/16 10/27/16 [[place] Plus Cold Tab Eff] Clonidine HCl 0.2 mg PO TID 06/07/16 10/27/16 Cyclobenzaprine HCl [Flexeril =] 10 mg PO TID PRN 06/07/16 10/27/16 Ergocalciferol (Vitamin D2) 50,000 unit PO QWEEKLY 06/07/16 10/27/16 [Vitamin D2] Fenofibrate [Lofibra] 160 mg PO DAILY 06/07/16 10/27/16 Ferrous Sulfate [Feosol =] 325 mg PO BIDFE 06/07/16 10/27/16 Fluticasone Propionate [Flonase 1 spray NS BID 06/07/16 10/27/16 50mcg/spray =] Furosemide [Lasix =] 60 mg PO DAILY 06/07/16 10/27/16 Gabapentin [Neurontin] 600 mg PO BID 06/07/16 10/27/16 Guaifenesin/Dextromethorphan 10 ml PO QID PRN 06/07/16 10/27/16 [Guaifenesin Dm Syrup] Hydralazine HCl 100 mg PO TID 06/07/16 10/27/16 Hydroxyzine HCl 25 mg PO BID 06/07/16 10/27/16 Insulin Aspart [Novolog Flexpen =] 2 - 10 unit SC QID 06/07/16 10/27/16 Insuln Asp Prt/Insulin Aspart 100 unit SC AC 06/07/16 10/27/16 [NovoLOG MIX 70-30 FLEXPEN =] Isosorbide Mononitrate [Isosorbide 30 mg PO DAILY 06/07/16 10/27/16 Mononitrate ER] Levetiracetam 250 mg PO BID 06/07/16 10/27/16 Loperamide HCl [Loperamide] 2 mg PO PRN PRN 06/07/16 10/27/16 Omeprazole [Prilosec] 20 mg PO DAILY 06/07/16 10/27/16 Ondansetron HCl [Zofran] 4 mg PO Q4-6H PRN 06/07/16 10/27/16 Tamsulosin HCl [Flomax =] 0.8 mg PO DAILY 06/07/16 10/27/16 guaiFENesin [Mucinex =] 600 mg PO DAILY 06/07/16 10/27/16 Amitriptyline HCl 25 mg PO HS 10/18/16 10/27/16 Duloxetine HCl [Cymbalta] 60 mg PO DAILY 10/18/16 10/27/16 Oxycodone HCl 30 mg PO Q6H PRN #10 tablet 10/18/16 10/27/16 Potassium Chloride 40 meq PO DAILY 10/18/16 10/27/16 Sulfamethoxazole/Trimethopri m 1 tab PO BID 10/18/16 10/27/16 [Bactrim Ds 800/160 mg =] Insulin Aspart [NovoLOG] 5 unit SC AC 10/27/16 10/27/16 diphenhydrAMINE HCl [Benadryl] 50 mg PO TID PRN 10/27/16 10/27/16 ROS All Other Systems: reviewed and negative except as stated Constitutional: no symptoms reported Musculoskeletal: as per HPI Gastrointestinal: no symptoms reported Genitourinary: no symptoms reported Past Medical History Neurological: Cerebrovascular Accident (2007), Peripheral Neuropathy, Seizures (takes keppra- last seizure 7 yrs ago), Other (PTSD) Psycho/Social Medical History: Anxiety, Substance Use Disorder Endocrine: Diabetes Cardiovascular: Angina, Congestive Heart Failure, Coronary Artery Disease, Hypercholesterolemia, Hypertension, Myocardial Infarction (x2) Hematologic: Anemia Musculoskeletal: Back Pain, Osteoarthritis, Osteoporosis, Other (discitis of thorarcic region, osteomyelitis of vertebrae) GI: GERD : Inguinal Hernia, Other (hiatal hernia,) Other Medical History: Current MDRO (MRSA), MRSA (back wound) Surgical History: Abdominal Surgery, Back Surgery, Cardiac Catheterization, Cholecystectomy, Coronary Stent (2 stents placed 2008), Hernia Repair-Inguinal, Hernia Repair-Umbilical, Other - Social History Smoking Status: Former Smoker # Packs per Day: 2 Packs per Day # Years Smoked: 28 Packs per Year Hx: 56 Alcohol Use: None Drug Use: None Physical Exam Vital Signs on Arrival Temperature 98.4 F 10/27/16 17:27 Pulse Rate 76 10/27/16 17:27 Respiratory Rate 18 10/27/16 17:27 Blood Pressure 191/95 H 10/27/16 17:27 O2 Sat by Pulse Oximetry 95 10/27/16 17:27 Vital Signs - Last Documented Temperature 98.4 F 10/27/16 17:27 Pulse Rate 66 10/27/16 20:39 Respiratory Rate 16 10/27/16 20:39 Blood Pressure 208/98 H 10/27/16 20:39 O2 Sat by Pulse Oximetry 94 10/27/16 20:39 Vital signs reviewed: reviewed and appear correct - General Limitations: physical limitation General appearance: alert, in no apparent distress, obese - Head Head exam: atraumatic, normocephalic - Eye Eye exam: Present: normal visual inspection - ENT ENT exam: normal visual inspection - Neck Neck exam: Present: normal visual inspection, full ROM - Chest Chest inspection: Present: symmetric chest wall rise - Respiratory Respiratory exam: Present: normal lung sounds bilaterally, respirations easy, unlabored - Cardiovascular Cardiovascular exam: Present: regular rate, normal rhythm - Neurological Exam Neurological exam: Present: alert, oriented X3, CN II-XII grossly intact - Psychiatric Psychiatric exam: Present: normal affect, normal mood, cooperative - Skin Skin exam: Present: warm, dry, intact, normal color. Absent: diaphoresis, pallor Results Radiology results reviewed X-Ray L-spine Result: abnormal (Compression fractures) Course ED Orders Category Date Time Status LUMBAR SPINE 2 OR 3 VIEW Stat Exams 10/27/16 19:00 Taken Hydromorphone HCl [Dilaudid 1 mg/ml Syringe] Med 10/27/16 19:25 Discontinued 1 mg .ROUTE .STK-MED ONE Hydromorphone HCl [Dilaudid 1 mg/ml Syringe] Med 10/27/16 19:01 Discontinued 1 mg IM NOW STA Ondansetron [Zofran Odt] Med 10/27/16 19:25 Discontinued 4 mg PO .STK-MED ONE Ondansetron [Zofran Odt] Med 10/27/16 19:00 Discontinued 4 mg PO NOW STA Oxycodone HCl/Acetaminophen [Percocet 5/325 mg] Med 10/27/16 20:12 Discontinued 2 each .ROUTE .STK-MED ONE Oxycodone HCl/Acetaminophen [Percocet 5/325 mg] Med 10/27/16 20:00 Discontinued 2 each PO NOW STA Isolation Precautions CONTIN Routine Ca 10/27/16 17:26 Inactive Administered Medications Discontinued Medications Hydromorphone HCl (Dilaudid 1 Mg/Ml Syringe) 1 mg IM NOW STA Stop: 10/27/16 19:02 Last Admin: 10/27/16 19:54 Dose: 1 mg Ondansetron HCl (Zofran Odt) 4 mg PO NOW STA Stop: 10/27/16 19:01 Last Admin: 10/27/16 19:54 Dose: 4 mg Oxycodone/Acetaminophen (Percocet 5/325 Mg) 2 each PO NOW STA Stop: 10/27/16 20:01 Last Admin: 10/27/16 20:20 Dose: Not Given Back Pain/Injury MDM Nurse's notes reviewed as were vital signs. X-rays taken lumbar spine positive for compression fractures patient given IM Dilaudid p.o. Percocet discharged to extended care facility in stable condition follow up with PCP next week return if any new or increased symptoms. Testing Ordered: Radiology 10/27/16 19:00 LUMBAR SPINE 2 OR 3 VIEW Stat Administered Medications Discontinued Medications Hydromorphone HCl (Dilaudid 1 Mg/Ml Syringe) 1 mg IM NOW STA Stop: 10/27/16 19:02 Last Admin: 10/27/16 19:54 Dose: 1 mg Ondansetron HCl (Zofran Odt) 4 mg PO NOW STA Stop: 10/27/16 19:01 Last Admin: 10/27/16 19:54 Dose: 4 mg Oxycodone/Acetaminophen (Percocet 5/325 Mg) 2 each PO NOW STA Stop: 10/27/16 20:01 Last Admin: 10/27/16 20:20 Dose: Not Given Disposition - Disposition Clinical Impression: Chronic back pain Qualifiers: Back pain location: low back pain Back pain laterality: bilateral Sciatica presence: without sciatica Qualified Code(s): M54.5 - Low back pain Osteomyelitis Qualifiers: Osteomyelitis type: unspecified type Osteomyelitis location: unspecified site Qualified Code(s): M86.9 - Osteomyelitis, unspecified Condition: Good Prescriptions/Home Medication: No Action Hydralazine HCl 100 mg PO TID Ondansetron HCl [Zofran] 4 mg PO Q4-6H PRN PRN Reason: Nausea / Vomiting Ergocalciferol (Vitamin D2) [Vitamin D2] 50,000 unit PO QWEEKLY Chlorphenir/Phenyleph/Aspiri n [[place] Plus Cold Tab Eff] 2 each PO Q4-6H PRN PRN Reason: Miscellaneous Ferrous Sulfate [Feosol =] 325 mg PO BIDFE Guaifenesin/Dextromethorphan [Guaifenesin Dm Syrup] 10 ml PO QID PRN PRN Reason: Cough Fenofibrate [Lofibra] 160 mg PO DAILY Aspirin 81 mg PO DAILY Omeprazole [Prilosec] 20 mg PO DAILY Furosemide [Lasix =] 60 mg PO DAILY Insulin Aspart [Novolog Flexpen =] 2 - 10 unit SC QID Tamsulosin HCl [Flomax =] 0.8 mg PO DAILY Gabapentin [Neurontin] 600 mg PO BID Amlodipine Besylate [Norvasc] 5 mg PO DAILY Loperamide HCl [Loperamide] 2 mg PO PRN PRN PRN Reason: Diarrhea Cyclobenzaprine HCl [Flexeril =] 10 mg PO TID PRN PRN Reason: Muscle Spasms Carvedilol [Coreg] 37.5 mg PO BID Acetaminophen [Mapap] 1,000 mg PO QID PRN PRN Reason: Pain Hydroxyzine HCl 25 mg PO BID Levetiracetam 250 mg PO BID guaiFENesin [Mucinex =] 600 mg PO DAILY Insuln Asp Prt/Insulin Aspart [NovoLOG MIX 70-30 FLEXPEN =] 100 unit SC AC Ascorbic Acid [Vitamin C] 250 mg PO DAILY Isosorbide Mononitrate [Isosorbide Mononitrate ER] 30 mg PO DAILY Fluticasone Propionate [Flonase 50mcg/spray =] 1 spray NS BID Clonidine HCl 0.2 mg PO TID Amitriptyline HCl 25 mg PO HS Sulfamethoxazole/Trimethopri m [Bactrim Ds 800/160 mg =] 1 tab PO BID Duloxetine HCl [Cymbalta] 60 mg PO DAILY Potassium Chloride 40 meq PO DAILY Oxycodone HCl 30 mg PO Q6H PRN #10 tablet PRN Reason: Pain Insulin Aspart [NovoLOG] 5 unit SC AC diphenhydrAMINE HCl [Benadryl] 50 mg PO TID PRN PRN Reason: Itching [facility]: [facility] [Outside] Patient Education: Chronic Back Pain (ED) Discharge Disposition: Discharged Electronically Signed By: OLGA Wolfe 10/27/162042 Toñito Norwood MD 10/31/162150 I was personally available for consultation in the ED, but I did not see the patient. Electronically Cosigned By: Toñito Norwood MD Cosigned Date/Time: 10/31/162150 [facility] LUMBAR SPINE 2 OR 3 VIEWon 0 10-27-2016 LUMBAR SPINE 2 OR [address] [id number] Pt Location: ED/ DEP ER Pt RM#: MR #: [id number] DATE: 10/27/16 190 ADM#: [id number] #: [id number] DEANISAMARCHITODOB: 1965 Age/Sex: 50 / M REPORT STATUS: SignedORDERING PHYSICIAN: PAULINO Wolfe/PRIMARY PHYSICIAN: Castro Jung MD HISTORY/REAS ON: Back PainCLINICAL HISTORY: Pain, atraumatic.TECHNICAL FACTORS: AP, lateral and coned down view are submitted.EXAMINATION: LUMBAR SPINE 2 OR 3 VIEWFINDINGS: There is sacralization of the last lumbar vertebral bodies. There are post laminectomychanges at L3-4. There is tilting of the spine to the left which may suggestmuscle spasm.There is underlying degenerative disc disease at L3-4 and L4-S1 as well as L2-3. There is advancednarrowing at T12-L1 anteriorly. There is irregularity of the end plates withacute angulation [id number]. This may represent discitis or osteomyelitis.I see no abnormalities of the pedicle. The sacrum and coccyx show normalalignment.IMPRESSION:1 . Multilevel degenerative disc disease at L2-3, L3-4, L4-S1.2. Possible discitis or osteomyelitis at T12-L1.3. Transitional vertebra.Preliminary results were communicated to the emergency room staff at the time of interpretation.REPORT# [id number] READ BY: Velvet Arechiga MD 10/31/16 0914FINAL REPORT RELEASED BY: Velvet Arechiga MD 10/31/16 1320Transcribed Date/Time: 10/31/16 1310 PLPCC: Castro Jung MD; OLGA Wolfe Normal [facility] COMPLETE BLOOD COUNTon 10-18 ABSOLUTE SEGS 4500 /cmm Normal [id number] [facility] Comment on above: Performed By: #### C BC ####MAIN LABCLIA:[id number] [facility] [place] [address] Basophils Auto #/vol (Bld) 0 /cmm Normal <216 [facility] Comment on above: Performed By: #### C BC ####MAIN LABCLIA:[id number] [place] [address] Basophils/100 WBC Auto (Bld) 0.5 % Normal <2.0 [facility] Comment on above: Performed By: #### C BC ####MAIN LABCLIA:[id number] [facility] [place] [address] Eosinophils 200 /cmm Normal <432 [facility] Comment on above: Performed By: #### C BC ####MAIN LABCLIA:[id number] [facility] [place] [address] Eosinophils/100 leukocytes 3.8 % Normal <4.0 [facility] Comment on above: Performed By: #### C BC ####MAIN LABCLIA:[id number] [facility] [address] Erythrocyte distribution width Auto Ratio (RBC) 14.4 % Normal 11.5-14.5 [facility] Comment on above: Performed By: #### C BC ####MAIN LABCLIA:[id number] [facility] [address] Erythrocytes (RBC) 4.50 10 6/cmm Low 4.60-6.20 [facility] Comment on above: Performed By: #### C BC ####MAIN LABCLIA:[id number] [facility] [address] Hematocrit (HCT) 36.8 % Low 40.0-54.0 [facility] Comment on above: Performed By: #### C BC ####MAIN LABCLIA:[id number] [facility] [address] Hemoglobin mass conc (Bld) 12.7 g/dL Low 13.5-18.0 [facility] Comment on above: Performed By: #### C BC ####MAIN LABCLIA:[id number] [facility] [address] Lymphocytes 700 /cmm Low [phone] [facility] Comment on above: Performed By: #### C BC ####MAIN LABCLIA:[id number] [facility] [place] [address] Lymphocytes/100 leukocytes 11.8 % Low 20.0-44.0 [facility] Comment on above: Performed By: #### C BC ####MAIN LABCLIA:[id number] [place] [place] [address] MCH 34.6 g/dL Normal 32.0-36.0 [facility] Comment on above: Performed By: #### C BC ####MAIN LABCLIA:[id number] [facility] [place] [address] MCH 28.3 pg Normal 27.0-31.0 [facility] Comment on above: Performed By: #### C BC ####MAIN LABCLIA:[id number] [facility] [place] [address] MCV 81.7 fL Normal 80.0-96.0 [facility] Comment on above: Performed By: #### C BC ####MAIN LABCLIA:[id number] [facility] [place] [address] Monocytes 400 /cmm Normal [phone] [facility] Comment on above: Performed By: #### C BC ####MAIN LABCLIA:[id number] [facility] [address] Monocytes/100 leukocytes 7.4 % Normal 2.0-9.0 [facility] Comment on above: Performed By: #### C BC ####MAIN LABCLIA:[id number] [facility] [address] Neutrophils/100 WBC Auto (Bld) 76.5 % High 50.0-70.0 [facility] Comment on above: Performed By: #### C BC ####MAIN LABCLIA:[id number] [facility] [address] Platelets 145 10 3/cmm Normal 130-400 [facility] Comment on above: Performed By: #### C BC ####MAIN LABCLIA:[id number] [facility] [address] WBC (Leukocytes) 5.9 10 3/cmm Normal 4.8-10.8 [facility] Comment on above: Performed By: #### C BC ####MAIN LABCLIA:[id number] [facility] [address] COMPREHENSIVE METABOLIC PANE [facility] 10-18-2016 Alanine aminotransferase (ALT) 56 U/L High 0-41 [facility] Comment on above: Performed By: #### C MP, MG ####MAIN LABCLIA:[id number] [facility] [address] Albumin 4.3 g/dL Normal 3.0-4.5 [facility] Comment on above: Performed By: #### C MP, MG ####MAIN LABCLIA:[id number] [facility] [address] Albumin/Globulin Ratio 1.2 {ratio} Normal 1-1.4 [facility] Comment on above: Performed By: #### C MP, MG ####MAIN LABCLIA:[id number] [place] [address] Alkaline phosphatase (ALP) 89 U/L Normal 40-129 [facility] Comment on above: Performed By: #### C MP, MG ####MAIN LABCLIA:[id number] [facility] [address] Anion gap 15 mmol/L Normal 9-18 [facility] Comment on above: Performed By: #### C MP, MG ####MAIN LABCLIA:[id number] [facility] [place] [address] Aspartate aminotransferase (AST) 47 U/L High 0-40 [facility] Comment on above: Performed By: #### C MP, MG ####MAIN LABCLIA:[id number] [facility] [place] [address] Bilirubin (total) 0.4 mg/dL Normal 0.2-1.2 [facility] Comment on above: Performed By: #### C MP, MG ####MAIN LABCLIA:[id number] [facility] [address] BUN (urea nitrogen) 15 mg/dL Normal 6-20 [facility] Comment on above: Performed By: #### C MP, MG ####MAIN LABCLIA:[id number] [facility] [address] BUN/Creatinine Ratio 11.7 mg/mg Normal [facility] Comment on above: Performed By: #### C MP, MG ####MAIN LABCLIA:[id number] [facility] [address] Calcium 9.3 mg/dL Normal 8.6-10.0 [facility] Comment on above: Performed By: #### C MP, MG ####MAIN LABCLIA:[id number] [facility] [address] Chloride 98 mmol/L Normal 98-107 [facility] Comment on above: Performed By: #### C MP, MG ####MAIN LABCLIA:[id number] [facility] [address] CO2 30 mmol/L High 22-29 [facility] Comment on above: Performed By: #### C MP, MG ####MAIN LABCLIA:[id number] [facility] [address] Creatinine 1.28 mg/dL High 0.70-1.20 [facility] Comment on above: Performed By: #### C MP, MG ####MAIN LABCLIA:[id number] [facility] [place] [address] eGFR (MDRD) 63 /1.73 m2 Normal >60 mL/min [facility] Comment on above: Result Comment: Norm al RangeStage Description:1 Normal or Increased GFR >=902 Mild Decrease in GFR 60-903 Moderately Decreased GFR 30-594 Severely Decreased GFR 15-295 Kidney Failure <15 Performed By: #### C MP, MG ####MAIN LABCLIA:[id number] [place] [address] Globulin 3.7 g/dL High 2.3-3.5 [facility] Comment on above: Performed By: #### C MP, MG ####MAIN LABCLIA:[id number] [place] [address] Glucose mass conc 209 mg/dL High 74-109 [facility] Comment on above: Performed By: #### C MP, MG ####MAIN LABCLIA:[id number] [place] [address] Potassium molar conc 3.9 mmol/L Normal 3.5-5.1 [facility] Comment on above: Performed By: #### C MP, MG ####MAIN LABCLIA:[id number] [place] [address] Protein 8.0 g/dL Normal 6.4-8.3 [facility] Comment on above: Performed By: #### C MP, MG ####MAIN LABCLIA:[id number] [place] [address] Sodium 139 mmol/L Normal 136-145 [facility] Comment on above: Performed By: #### C MP, MG ####MAIN LABCLIA:[id number] [place] [address] History & Physicalon 017 History & Physical [address], [place] [address] CHITO WELLS 50 [id number] 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 WELLS is a 50 year old male with past medical history of DM, BPH, GERD, Insomnia, Hypertrigylceridemia, HTN, CAD s/p 2 stents in 2009 CVA in 2007 with no deficits, Seizure disorder with last seizure in 2006, CHF, GA x2 in 2008 and lymphoma x2 with chemotherapy 18 years ago per patient who presents to the ER for chest pain. [facility] for a chronic back wound. Patient states he has been on oxycodones for 5 years now due to his chronic back pain. Patient states he has had 5 back surgery had osteomylitis in his back and did have the hardware removed from his back. State he has had MRSA in his back about 1 year ago. State all his back wounds has been treated by [facility] but now is managed by the [facility] physician. States he use to be on Oxycodone 60mg 6 times a day when was cut down to 15mg 4 times a day and then back up to 60mg q8 hours scheduled but recently has been decreased to 30mg PO q6H PRN for his back pain. Patient states his back hurts all the time and with pain medications his pain is tolerable at a 2-3 but when he does not get his pain medications his pain will get out of control which in returns sends his blood pressure up and then he will have chest pain with left arm tingling. Patient states his oxycodone was recently changed from 60mg PO Q8H scheduled to Oxycodone 30mg PO Q4H PRN and that the 30mg is not taking care of his back pain and he needs more oxycodone. Patient states he has never seen a pain specialist and that the education administrator at the [facility] is trying to connect him to an pain specialist. Patient was very upset this morning requesting he get dilaudid 2mg IV to help his back pain and then restart his oxycodone 6 hours from now or he will leave A. Patient was worked up in the ER CBC normal, Creat 1.29 which patient states is his normal but no old labs to compare to, AST 53 ALT 63, Tropsx3 negative, Trig 523, Cholesterol 217, Chest xray waiting final result, EKGs NSR with no ischemia noted. Reviewed old current records Allergies Allergy/AdvReac Type Severity Reaction Status Date / Time haloperidol [From Haldol] Allergy Verified 06/07/16 07:14 haloperidol lactate Allergy Verified 06/07/16 07:14 [From Haldol] hydrocodone Allergy Verified 06/07/16 07:14 Home Medications Medication Instructions Recorded Confirmed Acetaminophen [Mapap] 1,000 mg PO QID PRN 06/07/16 06/07/16 Amlodipine Besylate [Norvasc] 5 mg PO DAILY 06/07/16 10/18/16 Ascorbic Acid [Vitamin C] 250 mg PO DAILY 06/07/16 06/07/16 Aspirin 81 mg PO DAILY 06/07/16 10/18/16 Carvedilol [Coreg] 37.5 mg PO BID 06/07/16 06/07/16 Chlorphenir/Phenyleph/Aspiri n 2 each PO Q4-6H PRN 06/07/16 06/07/16 [R[place] Plus Cold Tab Eff] Clonidine HCl 0.2 mg PO TID 06/07/16 10/18/16 Cyclobenzaprine HCl [Flexeril =] 10 mg PO TID PRN 06/07/16 10/18/16 DAPTOmycin [Cubicin] 1,250 mg IV DAILY 06/07/16 06/07/16 Ergocalciferol (Vitamin D2) 50,000 unit PO QWEEKLY 06/07/16 06/07/16 [Vitamin D2] Fenofibrate [Lofibra] 160 mg PO DAILY 06/07/16 10/18/16 Ferrous Sulfate [Feosol =] 325 mg PO BIDFE 06/07/16 10/18/16 Fluticasone Propionate [Flonase] 1 spray NS BID 06/07/16 10/18/16 Furosemide [Lasix =] 60 mg PO DAILY 06/07/16 10/18/16 Gabapentin [Neurontin] 600 mg PO BID 06/07/16 10/18/16 Guaifenesin/Dextromethorphan 10 ml PO QID PRN 06/07/16 06/07/16 [Guaifenesin Dm Syrup] Hydralazine HCl 100 mg PO TID 06/07/16 10/18/16 Hydroxyzine HCl 25 mg PO BID 06/07/16 10/18/16 Insulin Aspart [NovoLOG FLEXPEN] 2 - 10 unit SC QID 06/07/16 06/07/16 Insuln Asp Prt/Insulin Aspart 100 unit SC AC 06/07/16 10/18/16 [NovoLOG MIX 70-30 FLEXPEN SYRN] Isosorbide Mononitrate [Isosorbide 30 mg PO DAILY 06/07/16 10/18/16 Mononitrate ER] Levetiracetam 250 mg PO BID 06/07/16 10/18/16 Loperamide HCl [Loperamide] 2 mg PO PRN PRN 06/07/16 10/18/16 Omeprazole [Prilosec] 20 mg PO DAILY 06/07/16 10/18/16 Ondansetron HCl [Zofran] 4 mg PO Q4-6H PRN 06/07/16 10/18/16 Promethazine HCl 12.5 mg PO Q6-8H PRN 06/07/16 10/18/16 Tamsulosin HCl [Flomax] 0.8 mg PO DAILY 06/07/16 10/18/16 guaiFENesin [Mucinex] 600 mg PO DAILY 06/07/16 10/18/16 Amitriptyline HCl 25 mg PO HS 10/18/16 10/18/16 Oxycodone HCl 30 mg PO PRN PRN 10/18/16 Allergies and home medications reviewed Past Medical History Neurological: Cerebrovascular Accident (2007), Peripheral Neuropathy, Seizures (takes keppra- last seizure 7 yrs ago), Other (PTSD) Psycho/Social: Anxiety, Substance Use Disorder Endocrine: Diabetes Cardiovascular: Angina, Congestive Heart Failure, Coronary Artery Disease, Hypercholesterolemia, Hypertension, Myocardial Infarction (x2) Hematologic: Anemia Musculoskeletal: Back Pain, Osteoarthritis, Osteoporosis, Other (discitis of thorarcic region, osteomyelitis of vertebrae) GI: GERD : Inguinal Hernia, Other (hiatal hernia,) Other: Current MDRO (MRSA), MRSA (back wound) Surgical History: Abdominal Surgery, Back Surgery, Cardiac Catheterization, Cholecystectomy, Coronary Stent (2 stents placed 2008), Hernia Repair-Inguinal, Hernia Repair-Umbilical, Other Social History Lives With: fdc Marital Status: - Smoking History Smoking Status: Former Smoker Smoked in Past 30 Days: No # Packs per Day: 2 Packs per Day # Years Smoked: 28 Packs per Year Hx: 56 Exposure to Second Hand Smoke: No Smokeless/Other Tobacco Use Past 30 Days: No - Alcohol Use History Use: None - Drug Use History Use: None ROS Constitutional: Denies: chills, fever, fatigue, weakness, diaphoresis Eyes: no symptoms reported ENT: no symptoms reported Endocrine: no symptoms reported Respiratory: Denies: cough, sputum production, shortness of breath, SOB with exertion, SOB at rest, wheezing Cardiovascular: chest pain. Denies: palpitations, dyspnea on exertion, orthopnea, edema, syncope, paroxysmal nocturnal dyspnea Gastrointestinal: Denies: nausea, vomiting Genitourinary: no symptoms reported Musculoskeletal: back pain (chronic) Integumentary: no symptoms reported Neurological: Denies: headache, weakness, numbness, paresthesias, confusion, vertigo, seizure Psychiatric: no symptoms reported Exam Height: 5 ft 11 in Weight: 294 lb 12.8 oz BMI: 41.1 Morbidly obese with a BMI greater than or equal to 40 Vital Signs (ED) Temp Pulse Resp BP 100.0 F H 81 16 189/99 H 10/17/16 16:53 10/17/16 16:53 10/17/16 16:53 10/17/16 16:53 Vital Signs (Last Values) Temp Pulse Resp BP Pulse Ox 97.5 F L 72 16 180/87 H 98 10/18/16 08:00 10/18/16 08:00 10/18/16 10:24 10/18/16 08:00 10/18/16 08:00 Reviewed: vital signs reviewed - General Limitations: no limitations General appearance: alert, in no apparent distress - HEENT Head exam: atraumatic, normocephalic Eye exam: normal appearance, PERRLA Mouth exam: mucous membranes moist, normal inspection - Neck Neck exam: normal inspection, full ROM, No carotid bruit - Chest Chest exam: normal inspection, symmetric chest wall rise, No tenderness - Respiratory Respiratory Exam: clear to auscultation bilaterally, normal effort, No dyspnea w/exertion, No oxygen, No cough, No sputum production Oxygen: no oxygen requirements - Cardiovascular Cardiovascular exam: regular rate, regular rhythm, normal heart sounds Telemetry: sinus rhythm Peripheral pulses: 2+: radial (R), radial (L), dorsalis pedis (R), dorsalis pedis (L) VTE prophylaxis ordered: JACOB chaves - GI/Abdominal GI/Abdomen exam: soft, non-tender, active bowel sounds - exam: normal w/palpation over bladder - Extremities Extremity exam: normal inspection, full ROM, normal capillay refill, moves toes/lower extremities without difficulty, radial pulses palpable, pedal pulses palpable, No edema Gait: observed/normal - Back Back exam: full ROM, other (moderate size old back wound healing well with no drainage or seeping noted) - Skin Skin exam: warm, dry, intact, normal color, normal turgor - Neurological Neurological exam: alert, oriented x3, cranial nerves intact, moves extremities Oriented to: person, place, time Speech: clear - Psychiatric Psychiatric exam: normal mood Results Laboratory results reviewed, Radiology results reviewed, ECG results reviewed 10/17/16 17:35 10/17/16 17:35 Last Chemstick Result Finger Stick Blood Glucose 229 Laboratory Results 10/18/16 10/17/16 Range/Units 01:30 21:56 Troponin T <0.010 <0.010 (<0.010) ng/mL Assessment Plan (1) Chest pain Plan: Mid chest with no radiation does admit to left arm tingling with his chest pain. States when his back pain gets bad his BP will go up and then he will have chest pain. States his back pain causes his chest pain. Trops x3 negative no ectopi on the telemetry, EKGs x3 NSR with no ischemia. Patient has had a stress test and LHC in 2014 at [facility] will get records if normal will discharge back to the [facility] today. ICD-10: Chest pain type: unspecified Qualified Code(s): R07.9 - Chest pain, unspecified (2) Essential hypertension Status: Stable Plan: Patient is on several BP medications at the F will continue CCB BB Clonidine, hydralazine, nitrate and monitor and titrate as needed. BP elevated since admission likely related to pain since patient is c/o alot of back pain in his wound. (3) CAD (coronary artery disease) Status: Stable Plan: GA x2 in 2008 stents x2 placed in 2008 last stress test and LHC in 2014 at [facility] will get records. Continue BB statin Nitrate and ASA ICD-10: Coronary Disease-Associated Artery/Lesion type: [place] artery [place] vs. transplanted heart: [place] heart Associated angina: with unspecified angina Qualified Code(s): I25.119 - Atherosclerotic heart disease of [place] coronary artery with unspecified angina pectoris (4) CVA (cerebral vascular accident) Status: Stable Plan: By history in 2007 with no deficits continue ASA Statin ICD-10: Laterality of affected vessel: unspecified (5) Hyperlipidemia Status: Stable Plan: Total cholesterol 217 Trig 523, continue statin ICD-10: Hyperlipidemia type: unspecified Qualified Code(s): E78.5 - Hyperlipidemia, unspecified (6) Seizure Status: Stable Plan: Last seizure was in 2006 continue Keppra VTE Prophylaxis: JACOB chaves GI Prophylaxis: PPI ordered Electronically Signed By: Cathi Yu CNP Signed Date/Time: 10/18/16 1157 Electronically Cosigned By: Cosigned Date/Time: Addendum Physician Co-Signing Addendum Respiratory exam: normal effort Cardiovascular exam: regular rate GI/Abdomen exam: soft Neurological exam: alert oriented x3 Patient seen and examined personally by myself. CIGAR INSPECTOR documentation reviewed and considered accurate. (1) Chest pain Resolved. He states that his uncontrolled back pain is what causes his chest pain, in his opinion, and that this is only cured with IV Dilaudid in his words. Clearly, this patient is narcotic-seeking. Trops x3 negative. No ectopi on telemetry. EKGs x3 NSR, with no ischemia. History of two stents placed in 2008. Patient has had a stress test and LHC in 2014 at [facility] which did not require any intervention, showed patent stents (placed back in 2008), and showed one single 40% blockage (according to the patient). Discharge back to the [facility] today 10/18/16. (2) Essential hypertension Patient is on several BP medications at the [facility]. Continue home CCB, BB, Clonidine, Hydralazine, and Nitrate. (3) CAD (coronary artery disease) Sents x2 placed back in 2008. Last stress test and LHC in 2015 at [facility], as mentioned above. Continue home BB, statin, Nitrate, and ASA (4) CVA (cerebral vascular accident) By history in 2007, with no residual deficits. Continue home ASA and Statin. (5) Hyperlipidemia Continue home statin. (6) Seizure Last seizure was in 2006. Continue home Keppra. Electronically Signed By: Dimitrios Lindsay MD Signed Date/Time: 10/18/16 1522 Electronically Cosigned By:Dimitrios Lindsay MD Cosigned Date/Time: 10/27/16 1733 Normal [facility] MAGNESIUMon 10-18-2016 Magnesium 1.8 mg/dL Normal 1.6-2.6 [facility] Comment on above: Performed By: #### T ROPT ####MAIN LABCLIA:[id number] [place] [address] MRSA,NARES,PCRon 10-18-2016 MRSA Negative Normal Negative [facility] Comment on above: Order Comment: COLLE CTED BY: Kellie Haro RN Result Comment: This test was performed using BD MAX PCR Amplification. Performed By: #### T ROPT ####MAIN LABCLIA:[id number] [place] [address] STAPH AUREUS Negative Normal Negative [facility] Comment on above: Order Comment: COLLE CTED BY: Kellie Haro RN Result Comment: This test was performed using BD MAX PCR Amplification. Performed By: #### T ROPT ####MAIN LABCLIA:[id number] [place] [address] TROPONIN Ton 10-18-2016 Troponin T.cardiac mass conc ug/L Normal <0.010 [facility] Comment on above: Result Comment: Valu es > or = 0.01 ng/mL have been shown to have prognosticvalue.Troponin T values > or = 0.01 ng/mL are a prognostic sign inpatients with ischemic heart disease. Clinical judgment isnecessary to distinguish patients who have ischemic heartdisease from those who do not.Patients with low level(<0.20 ng/mL)elevations of troponin Tand diagnostic uncertainty for acute coronary syndromeshould be evaluated by repeat measurements at 4 and 8 hours. Performed By: #### T ROPT ####MAIN LABCLIA:[id number] [place] [address] Troponin T.cardiac mass conc ug/L Normal <0.010 [facility] Comment on above: Result Comment: Valu es > or = 0.01 ng/mL have been shown to have prognosticvalue.Troponin T values > or = 0.01 ng/mL are a prognostic sign inpatients with ischemic heart disease. Clinical judgment isnecessary to distinguish patients who have ischemic heartdisease from those who do not.Patients with low level(<0.20 ng/mL)elevations of troponin Tand diagnostic uncertainty for acute coronary syndromeshould be evaluated by repeat measurements at 4 and 8 hours. Performed By: #### T ROPT ####MAIN LABCLIA:[id number] [facility] [address] CBC/DIFF GROUPon 10-17-2016 NORMOCHROMIC YES Normal [facility] Comment on above: Performed By: #### Z CBCGR ####MAIN LABCLIA:[id number] [facility] [address] NORMOCYTIC YES Normal [facility] Comment on above: Performed By: #### Z CBCGR ####MAIN LABCLIA:[id number] [facility] [place] [address] Platelets NORMAL [facility] Comment on above: Performed By: #### Z CBCGR ####MAIN LABCLIA:[id number] [facility] [place] [address] Eosinophils 456 /cmm High <432 [facility] Comment on above: Performed By: #### Z CBCGR ####MAIN LABCLIA:[id number] [facility] [place] [address] Eosinophils/100 leukocytes 6 % High <4 [facility] Comment on above: Performed By: #### Z CBCGR ####MAIN LABCLIA:[id number] [facility] [place] [address] Lymphocytes 1368 /cmm Normal 0-[facility] Comment on above: Performed By: #### Z CBCGR ####MAIN LABCLIA:[id number] [facility] [place] [address] Lymphocytes/100 leukocytes 18 % Low 20-44 [facility] Comment on above: Performed By: #### Z CBCGR ####MAIN LABCLIA:[id number] [facility] [place] [address] Monocytes 304 /cmm Normal 96-972 [facility] Comment on above: Performed By: #### Z CBCGR ####MAIN LABCLIA:[id number] [facility] [place] [address] Monocytes/100 leukocytes 4 % Normal 2-9 [facility] Comment on above: Performed By: #### Z CBCGR ####MAIN LABCLIA:[id number] [facility] [address] Neutrophils 5472 /cmm Normal 0282-2464 [facility] Comment on above: Performed By: #### Z CBCGR ####MAIN LABCLIA:[id number] [facility] [place] [address] Neutrophils/100 WBC Auto (Bld) 72 % High 50-70 [facility] Comment on above: Performed By: #### Z CBCGR ####MAIN LABCLIA:[id number] [facility] [place] [address] TOTAL CELLS COUNTED 100 Normal [facility] Comment on above: Performed By: #### Z CBCGR ####MAIN LABCLIA:[id number] [facility] [address] Erythrocyte distribution width Auto Ratio (RBC) 14.5 % Normal 11.5-14.5 [facility] Comment on above: Performed By: #### Z CBCGR ####MAIN LABCLIA:[id number] [facility] [address] Erythrocytes (RBC) 4.15 10 6/cmm Low 4.60-6.20 [facility] Comment on above: Performed By: #### Z CBCGR ####MAIN LABCLIA:[id number] [facility] [address] Hematocrit (HCT) 34.2 % Low 40.0-54.0 [facility] Comment on above: Performed By: #### Z CBCGR ####MAIN LABCLIA:[id number] [facility] [address] Hemoglobin mass conc (Bld) 11.7 g/dL Low 13.5-18.0 [facility] Comment on above: Performed By: #### Z CBCGR ####MAIN LABCLIA:[id number] [facility] [address] MCH 28.2 pg Normal 27.0-31.0 [facility] Comment on above: Performed By: #### Z CBCGR ####MAIN LABCLIA:[id number] [place] [address] MCH 34.1 g/dL Normal 32.0-36.0 [facility] Comment on above: Performed By: #### Z CBCGR ####MAIN LABCLIA:[id number] [place] [address] MCV 82.6 fL Normal 80.0-96.0 [facility] Comment on above: Performed By: #### Z CBCGR ####MAIN LABCLIA:[id number] [place] [address] Platelets 137 10 3/cmm Normal 130-400 [facility] Comment on above: Performed By: #### Z CBCGR ####MAIN LABCLIA:[id number] [place] [address] WBC (Leukocytes) 7.6 10 3/cmm Normal 4.8-10.8 [facility] Comment on above: Performed By: #### Z CBCGR ####MAIN LABCLIA:[id number] [place] [address] CHEST AP OR PAon 10-17-2016 CHEST AP OR PA [address] [phone] Pt Location: 4W/ ADM IN Pt RM#: [id number] MR #: [id number] DATE: 10/17/161703 ADM#: [id number] #: [id number] CHITO WELLSDOB: 1965 Age/Sex: 50 / M REPORT STATUS: SignedORDERING PHYSICIAN: JOSH PortilloRIVATE/PRIMARY PHYSICIAN: Castro Jung MD HISTORY/REAS ON: CPCLINICAL HISTORY: Chest pain.TECHNICAL FACTORS: Single portable AP upright chest is submitted withoutcomparisons.EXAMINATI ON: CHEST AP OR PAFINDINGS: The cardiac silhouette appears unremarkable. The lung bang areclear and wellexpanded. I see no abnormalities of the klaus and the costophrenic angles remain sharp.IMPRESSION:I see no acute disease in the chest.REPORT# [id number] READ BY: Velvet Arechiga MD 10/18/16 0934FINAL REPORT RELEASED BY: Velvet Arechiga MD 10/18/16 1208Transcribed Date/Time: 10/18/16 1038 PLPCC: Dimitrios Lindsay MD; Castro Jung MD; Toñito Norwood MD Normal [facility] COMPREHENSIVE METABOLIC PANE Devin 10-17-2016 Alanine aminotransferase (ALT) 63 U/L High 0-41 [facility] [facility] Comment on above: Performed By: #### C MP ####MAIN LABCLIA:[id number] [place] [address] Albumin 3.9 g/dL Normal 3.0-4.5 [facility] Comment on above: Performed By: #### C MP ####MAIN LABCLIA:[id number] [place] [address] Albumin/Globulin Ratio 1.3 {ratio} Normal 1-1.4 [facility] Comment on above: Performed By: #### C MP ####MAIN LABCLIA:[id number] [place] [address] Alkaline phosphatase (ALP) 97 U/L Normal 40-129 [facility] Comment on above: Performed By: #### C MP ####MAIN LABCLIA:[id number] [place] [address] Anion gap 19 mmol/L High 9-18 [facility] Comment on above: Performed By: #### C MP ####MAIN LABCLIA:[id number] [facility] [address] Aspartate aminotransferase (AST) 53 U/L High 0-40 [facility] Comment on above: Performed By: #### C MP ####MAIN LABCLIA:[id number] [place] [address] Bilirubin (total) 0.2 mg/dL Normal 0.2-1.2 [facility] Comment on above: Performed By: #### C MP ####MAIN LABCLIA:[id number] [facility] [address] BUN (urea nitrogen) 15 mg/dL Normal 6-20 [facility] Comment on above: Performed By: #### C MP ####MAIN LABCLIA:[id number] [place] [address] BUN/Creatinine Ratio 11.6 mg/mg Normal [facility] Comment on above: Performed By: #### C MP ####MAIN LABCLIA:[id number] [place] [address] Calcium 8.8 mg/dL Normal 8.6-10.0 [facility] Comment on above: Performed By: #### C MP ####MAIN LABCLIA:[id number] [place] [address] Chloride 96 mmol/L Low 98-107 [facility] Comment on above: Performed By: #### C MP ####MAIN LABCLIA:[id number] [facility] [address] CO2 27 mmol/L Normal 22-29 [facility] Comment on above: Performed By: #### C MP ####MAIN LABCLIA:[id number] [facility] [address] Creatinine 1.29 mg/dL High 0.70-1.20 [facility] Comment on above: Performed By: #### C MP ####MAIN LABCLIA:[id number] [facility] [address] eGFR (MDRD) 63 /1.73 m2 Normal >60 mL/min [facility] Comment on above: Result Comment: Norm al RangeStage Description:1 Normal or Increased GFR >=902 Mild Decrease in GFR 60-903 Moderately Decreased GFR 30-594 Severely Decreased GFR 15-295 Kidney Failure <15 Performed By: #### C MP ####MAIN LABCLIA:[id number] [place] [address] Globulin 3.1 g/dL Normal 2.3-3.5 [facility] Comment on above: Performed By: #### C MP ####MAIN LABCLIA:[id number] [place] [address] Glucose mass conc 265 mg/dL High 74-109 [facility] Comment on above: Performed By: #### C MP ####MAIN LABCLIA:[id number] [place] [address] Potassium molar conc 3.9 mmol/L Normal 3.5-5.1 [facility] Comment on above: Performed By: #### C MP ####MAIN LABCLIA:[id number] [place] [address] Protein 7.0 g/dL Normal 6.4-8.3 [facility] Comment on above: Performed By: #### C MP ####MAIN LABCLIA:[id number] [place] [address] Sodium 138 mmol/L Normal 136-145 [facility] Comment on above: Performed By: #### C MP ####MAIN LABCLIA:[id number] [place] [address] Emergency Room Visit Reporto n 10-17-2016 Emergency Room Visit Report [address] [place], [place] [address] CHITO WELLS 1965 (50 M) [id number] Toñito Norwood MD 4W Report #: [id number] PCP: Castro Jung MD Emergency Room Visit Report Date of Service: 10/17/16 Date/Time: 10/17/16 1730 Report Status: Signed Chest Pain HPI Condition on Arrival: Good Information Source: patient Mode of Arrival: ambulance/EMS Limitations: no limitations Lives With: fdc - Travel Screening Traveled Out Of Country In Last 30 Days: No (Or) Been in Contact With Ill Person Who Has Traveled: No - History of Present Illness Complaint: chest pain Description of Symptoms: chest pain with SOB and left arm tingling. Associated Symptoms: nausea, vomiting, diaphoresis Date of Onset (approx): 10/10/16 Improves With: nitroglycerin Worsens With: exertion Treatment PSYCHOLOGIST PRIVATE PRACTICE: Aspirin 324 mg, Nitroglycerin x1 50 yowm with chest pain and tingling in the L arm who presents by EMS. The 4 ASA and 1 NTG given per squad did help his CP., but now I have a splitting headache. Says he also aches all over and was just cut back from 8 oxycontin's a day to 4 a day. He notes he has HTN, DM, high trig's, and two stents in my widowmaker. - Pain Assessment chest pain Intensity: 5 Description: Stabbing Behavior: Calm lower back Intensity: 7 Description: Constant Behavior: Calm - Immunizations Immunizations Up to Date: yes Patient Tetanus UTD (Within 5 Years): yes Flu Vaccine: seasonal Pneumonia Vaccine: yes - Allergies/Home Meds Allergy to Contrast: No Allergy to Iodine/Shellfish: No Allergies Allergy/AdvReac Type Severity Reaction Status Date / Time haloperidol [From Haldol] Allergy Verified 06/07/16 07:14 haloperidol lactate Allergy Verified 06/07/16 07:14 [From Haldol] hydrocodone Allergy Verified 06/07/16 07:14 Home Medications Medication Instructions Recorded Confirmed Acetaminophen [Mapap] 1,000 mg PO QID PRN 06/07/16 06/07/16 Amitriptyline HCl [Elavil =] 10 mg PO HS 06/07/16 06/07/16 Amlodipine Besylate [Norvasc] 10 mg PO DAILY 06/07/16 06/07/16 Ascorbic Acid [Vitamin C] 250 mg PO DAILY 06/07/16 06/07/16 Aspirin 81 mg PO DAILY 06/07/16 06/07/16 Carvedilol [Coreg] 37.5 mg PO BID 06/07/16 06/07/16 Chlorphenir/Phenyleph/Aspiri n 2 each PO Q4-6H PRN 06/07/16 06/07/16 [[place]ita[place] Plus Cold Tab Eff] Clonidine HCl 0.2 mg PO TID 06/07/16 06/07/16 Cyclobenzaprine HCl [Flexeril =] 10 mg PO TID PRN 06/07/16 06/07/16 DAPTOmycin [Cubicin] 1,250 mg IV DAILY 06/07/16 06/07/16 Ergocalciferol (Vitamin D2) 50,000 unit PO QWEEKLY 06/07/16 06/07/16 [Vitamin D2] Fenofibrate [Lofibra] 160 mg PO DAILY 06/07/16 06/07/16 Ferrous Sulfate [Feosol =] 325 mg PO BIDFE 06/07/16 06/07/16 Fluticasone Propionate [Flonase] 1 spray NS BID 06/07/16 06/07/16 Furosemide [Lasix =] 60 mg PO DAILY 06/07/16 06/07/16 Gabapentin [Neurontin] 600 mg PO BID 06/07/16 06/07/16 Guaifenesin/Dextromethorphan 10 ml PO QID PRN 06/07/16 06/07/16 [Guaifenesin Dm Syrup] Hydralazine HCl 100 mg PO TID 06/07/16 06/07/16 Hydroxyzine HCl 25 mg PO BID 06/07/16 06/07/16 Insulin Aspart [NovoLOG FLEXPEN] 2 - 10 unit SC QID 06/07/16 06/07/16 Insuln Asp Prt/Insulin Aspart 90 unit SC AC 06/07/16 06/07/16 [NovoLOG MIX 70-30 FLEXPEN SYRN] Isosorbide Mononitrate [Isosorbide 30 mg PO DAILY 06/07/16 06/07/16 Mononitrate ER] Levetiracetam 250 mg PO BID 06/07/16 06/07/16 Loperamide HCl [Loperamide] 2 mg PO PRN PRN 06/07/16 06/07/16 Omeprazole [Prilosec] 40 mg PO DAILY 06/07/16 06/07/16 Ondansetron HCl [Zofran] 4 mg PO Q4-6H PRN 06/07/16 06/07/16 Promethazine HCl 12.5 mg PO Q6-8H PRN 06/07/16 06/07/16 Tamsulosin HCl [Flomax] 0.8 mg PO DAILY 06/07/16 06/07/16 guaiFENesin [Mucinex] 600 mg PO DAILY 06/07/16 06/07/16 ROS All Other Systems: reviewed and negative except as stated Neurological: no symptoms reported ENT: no symptoms reported Cardiovascular: no symptoms reported Musculoskeletal: no symptoms reported Integumentary: no symptoms reported Gastrointestinal: no symptoms reported Past Medical History Neurological: Cerebrovascular Accident (2007), Peripheral Neuropathy, Seizures (takes keppra- last seizure 7 yrs ago), Other (PTSD) Psycho/Social Medical History: Anxiety, Substance Use Disorder Endocrine: Diabetes Cardiovascular: Angina, Congestive Heart Failure, Coronary Artery Disease, Hypercholesterolemia, Hypertension, Myocardial Infarction (x2) Hematologic: Anemia Musculoskeletal: Back Pain, Osteoarthritis, Osteoporosis, Other (discitis of thorarcic region, osteomyelitis of vertebrae) GI: GERD : Inguinal Hernia, Other (hiatal hernia,) Other Medical History: Current MDRO (MRSA), MRSA (back wound) Surgical History: Abdominal Surgery, Back Surgery, Cardiac Catheterization, Cholecystectomy, Coronary Stent (2 stents placed 2008), Hernia Repair-Inguinal, Hernia Repair-Umbilical, Other - Social History Smoking Status: Former Smoker Smoked in Past 30 Days: No # Packs per Day: 2 Packs per Day # Years Smoked: 28 Packs per Year Hx: 56 Exposure to Second Hand Smoke: No Smokeless/Other Tobacco Use Past 30 Days: No Alcohol Use: None Drug Use: None Physical Exam Vital Signs on Arrival Temperature 100.0 F H 10/17/16 16:53 Pulse Rate 81 10/17/16 16:53 Respiratory Rate 16 10/17/16 16:53 Blood Pressure 189/99 H 10/17/16 16:53 Vital Signs - Last Documented Temperature 99.5 F 10/17/16 20:03 Pulse Rate 80 10/17/16 20:30 Respiratory Rate 15 10/17/16 20:30 Blood Pressure 171/86 H 10/17/16 20:24 O2 Sat by Pulse Oximetry 94 10/17/16 20:30 Vital signs reviewed: reviewed and appear correct - General Limitations: no limitations General appearance: alert, in no apparent distress - Head Head exam: atraumatic, normocephalic, normal visual inspection - Eye Eye exam: Present: normal visual inspection, PER, EOMI - ENT ENT exam: normal visual inspection, mucous membranes moist - Neck Neck exam: Present: normal visual inspection, trachea midline. Absent: tenderness, meningismus, JVD - Chest Chest inspection: Present: symmetric chest wall rise - Respiratory Respiratory exam: Present: normal lung sounds bilaterally, respirations easy, unlabored. Absent: respiratory distress, wheezes, rales, rhonchi, stridor, accessory muscle use - Cardiovascular Cardiovascular exam: Present: regular rate, normal rhythm, normal heart sounds - GI/Abdominal Exam Abdominal exam: Present: soft. Absent: tenderness, guarding, rebound - Neurological Exam Neurological exam: Present: alert, oriented X3, CN II-XII grossly intact - Psychiatric Psychiatric exam: Present: normal affect, normal mood, cooperative - Skin Skin exam: Present: warm, dry, intact, normal color. Absent: diaphoresis, pallor Results Laboratory results reviewed, Radiology results reviewed 10/17/16 17:35 10/17/16 17:35 Laboratory Results 10/17/16 10/17/16 10/17/16 Range/Units 17:35 17:35 17:35 WBC (4.8-10.8) 10 3/cmm RBC (4.60-6.20) 10 6/cmm Hgb (13.5-18.0) g/dL Hct (40.0-54.0) % MCV (80.0-96.0) fL MCH (27.0-31.0) pg MCHC (32.0-36.0) g/dL RDW (11.5-14.5) Plt Count (130-400) 10 3/cmm Total Counted Neutrophils % (Manual) (50-70) % Lymphocytes % (Manual) (20-44) % Monocytes % (Manual) (2-9) % Eosinophils % (Manual) (<4) % Neutrophils # (Manual) (9890-4206) /cmm Lymphocytes # (Manual) (960-4752) /cmm Monocytes # (Manual) (96-972) /cmm Eosinophils # (Manual) (<432) /cmm Platelet Estimate Normocytic RBCs Normochromic RBCs APTT (24.8-34.3) sec Sodium 138 (136-145) mmol/L Potassium 3.9 (3.5-5.1) mmol/L Chloride 96 L (98-107) mmol/L Carbon Dioxide 27 (22-29) mmol/L Anion Gap 19 H (9-18) BUN 15 (6-20) mg/dL Creatinine 1.29 H (0.70-1.20) mg/dL GFR Calculation 63 (>60 mL/min) /1.73 m2 BUN/Creatinine Ratio 11.6 Glucose 265 H (74-109) mg/dL Calcium 8.8 (8.6-10.0) mg/dL Total Bilirubin 0.2 (0.2-1.2) mg/dL AST 53 H (0-40) U/L ALT 63 H (0-41) U/L Alkaline Phosphatase 97 (40-129) U/L Troponin T <0.010 (<0.010) ng/mL Total Protein 7.0 (6.4-8.3) g/dL Albumin 3.9 (3.0-4.5) g/dL Globulin 3.1 (2.3-3.5) g/dL Albumin/Globulin Ratio 1.3 (1-1.4) ratio Triglycerides 523 H (0-199) mg/dL Cholesterol 217 H (0-199) mg/dL LDL Cholesterol TNP VLDL Cholesterol TNP HDL Cholesterol 22 L (>55) mg/dL Anticoagulant Name 10/17/16 10/17/16 Range/Units 17:35 17:35 WBC 7.6 (4.8-10.8) 10 3/cmm RBC 4.15 L (4.60-6.20) 10 6/cmm Hgb 11.7 L (13.5-18.0) g/dL Hct 34.2 L (40.0-54.0) % MCV 82.6 (80.0-96.0) fL MCH 28.2 (27.0-31.0) pg MCHC 34.1 (32.0-36.0) g/dL RDW 14.5 (11.5-14.5) Plt Count 137 (130-400) 10 3/cmm Total Counted 100 Neutrophils % (Manual) 72 H (50-70) % Lymphocytes % (Manual) 18 L (20-44) % Monocytes % (Manual) 4 (2-9) % Eosinophils % (Manual) 6 H (<4) % Neutrophils # (Manual) 5472 (5159-5683) /cmm Lymphocytes # (Manual) 1368 (960-4752) /cmm Monocytes # (Manual) 304 (96-972) /cmm Eosinophils # (Manual) 456 H (<432) /cmm Platelet Estimate Normal Normocytic RBCs Yes Normochromic RBCs Yes APTT 22.8 L (24.8-34.3) sec Sodium (136-145) mmol/L Potassium (3.5-5.1) mmol/L Chloride (98-107) mmol/L Carbon Dioxide (22-29) mmol/L Anion Gap (9-18) BUN (6-20) mg/dL Creatinine (0.70-1.20) mg/dL GFR Calculation (>60 mL/min) /1.73 m2 BUN/Creatinine Ratio Glucose (74-109) mg/dL Calcium (8.6-10.0) mg/dL Total Bilirubin (0.2-1.2) mg/dL AST (0-40) U/L ALT (0-41) U/L Alkaline Phosphatase (40-129) U/L Troponin T (<0.010) ng/mL Total Protein (6.4-8.3) g/dL Albumin (3.0-4.5) g/dL Globulin (2.3-3.5) g/dL Albumin/Globulin Ratio (1-1.4) ratio Triglycerides (0-199) mg/dL Cholesterol (0-199) mg/dL LDL Cholesterol VLDL Cholesterol HDL Cholesterol (>55) mg/dL Anticoagulant Name None ECG #1 Date of EC10/17/16 Rhythm: NSR Rate: normal P Waves: normal ST Segment: normal T Waves: normal Interpreted By: ED provider Comparison to Prior ECG: no significant changes Course ED Orders Category Date Time Status Activity: Up Ad Kenyatta CONTINUOUS ADL 10/17/16 20:46 Active Intake and Output TID ADL 10/17/16 20:46 Active Vital Signs Q4HMRH ADL 10/17/16 20:46 Active Insert Hepwell ONCE Assessment 10/17/16 17:04 Active ECG Stat Cardiology 10/17/16 17:04 Completed ECG Urgent Cardiology 10/17/16 18:04 Completed ECG Urgent Cardiology 10/17/16 19:04 Completed VTE Prophylaxis-Documentation Routine Care 10/17/16 20:46 Ordered CCHO Caffeine Free Diet [DIET] Diet 10/17/16 Dinner Active CHEST AP OR PA Stat Exams 10/17/16 17:04 Taken Hepwell (0.9 % Ns Flush) [Hepwell (Normal Saline Flush) IV 10/17/16 17:04 Discontinued ] 0 - 10 ml IVF ONCE ONE Hepwell (0.9 % Ns Flush) [Hepwell (Normal Saline Flush) IV 10/17/16 22:00 Active ] 0 - 10 ml IVF Q8HMRH CBC/DIFF GROUP Stat Lab 10/17/16 17:35 Completed COMPREHENSIVE METABOLIC PANEL Stat Lab 10/17/16 17:35 Completed PARTIAL THROMBOPLASTIN TIME Stat Lab 10/17/16 17:35 Completed TROPONIN T Stat Lab 10/17/16 17:35 Completed TROPONIN T Timed Lab 10/17/16 21:04 Ordered TROPONIN T Timed Lab 10/18/16 01:04 Ordered VASCULAR RISK PANEL Routine Lab 10/17/16 17:35 Completed Acetaminophen [Tylenol Extra Strength] Med 10/17/16 21:08 Active 1,000 mg PO QID PRN Amitriptyline HCl [Elavil] Med 10/17/16 21:00 Active 10 mg PO HS Ascorbic Acid [Vitamin C] Med 10/18/16 09:00 Active 250 mg PO DAILY Aspirin Med 10/18/16 09:00 Active 81 mg PO DAILY Aspirin [Ecotrin] Med 10/18/16 09:00 Active 81 mg PO DAILY Atorvastatin Calcium [Lipitor] Med 10/17/16 21:00 Active 20 mg PO HS Carvedilol [Coreg] Med 10/18/16 09:00 Active 37.5 mg PO BID Chlorphenir/Phenyleph/Aspiri n [Rita[place] Plus Cold Med 10/17/16 20:46 Pending Tab Eff] 2 each PO Q4-6H PRN Cyclobenzaprine HCl [Flexeril] Med 10/17/16 20:46 Active 10 mg PO TID PRN DAPTOmycin [Cubicin] Med 10/18/16 09:00 Pending 1,250 mg IV DAILY Ergocalciferol (Vitamin D2) [Vitamin D2] Med 10/17/16 20:46 Pending 50,000 unit PO QWEEKLY Fenofibrate Nanocrystallized [Tricor] Med 10/18/16 09:00 Active 145 mg PO DAILY Ferrous Sulfate [Feosol] Med 10/18/16 10:00 Active 325 mg PO BIDFE Fluticasone Propionate [Flonase] Med 10/17/16 21:00 Active 1 spray NS BID Furosemide [Lasix] Med 10/18/16 09:00 Active 60 mg PO DAILY Gabapentin [Neurontin] Med 10/17/16 22:00 Active 600 mg PO BID Guaifenesin/D-Methorphan Hb [Robitussin Dm] Med 10/17/16 20:46 Active 10 ml PO QID PRN Hydralazine HCl [Apresoline] Med 10/17/16 22:00 Active 100 mg PO TID Hydromorphone HCl [Dilaudid 1 mg/ml Syringe] Med 10/17/16 19:38 Discontinued 2 mg .ROUTE .STK-MED ONE Hydromorphone HCl [Dilaudid 1 mg/ml Syringe] Med 10/17/16 19:32 Discontinued 2 mg IVP NOW STA Hydromorphone HCl [Dilaudid 1 mg/ml Syringe] Med 10/17/16 20:46 Active 2 mg IVP Q4-6H PRN Insulin Aspart [NovoLOG Flexpen] Med 10/18/16 00:00 Active 2 - 10 unit SC QID Insuln Asp Prt/Insulin Aspart [NovoLOG MIX 70-30 Med 10/18/16 07:00 Active FLEXPEN SYRN] 90 unit SC AC Isosorbide Mononitrate [Imdur] Med 10/18/16 09:00 Active 30 mg PO DAILY Loperamide HCl [Imodium] Med 10/17/16 20:46 Active 2 mg PO PRN PRN Nitroglycerin [Nitrostat] Med 10/17/16 20:46 Active 0.4 mg SL Q5M PRN Ondansetron HCl/Pf [Zofran 4 mg/2 ml Vial] Med 10/17/16 19:38 Discontinued 8 mg .ROUTE .STK-MED ONE Ondansetron HCl/Pf [Zofran 4 mg/2 ml Vial] Med 10/17/16 19:32 Discontinued 8 mg IVP NOW STA Ondansetron [Zofran Odt] Med 10/17/16 21:13 Active 4 mg PO Q4-6H PRN Pantoprazole Sodium [Protonix] Med 10/18/16 07:00 Active 40 mg PO AB Promethazine HCl [Phenergan] Med 10/17/16 21:14 Active 12.5 mg PO Q6H PRN Tamsulosin HCl [Flomax] Med 10/18/16 09:00 Active 0.8 mg PO DAILY amLODIPine BESYLATE [Norvasc] Med 10/18/16 09:00 Active 10 mg PO DAILY cloNIDine HCl [Catapres] Med 10/17/16 18:05 Discontinued 0.2 mg .ROUTE .STK-MED ONE cloNIDine HCl [Catapres] Med 10/17/16 17:50 Discontinued 0.2 mg PO NOW STA cloNIDine HCl [Catapres] Med 10/17/16 22:00 Active 0.2 mg PO TID guaiFENesin [Mucinex] Med 10/18/16 09:00 Active 600 mg PO DAILY hydrOXYzine HCl [Atarax] Med 10/17/16 22:00 Active 25 mg PO BID levETIRAcetam [Keppra] Med 10/17/16 21:00 Active 250 mg PO BID Cardiac Risk Level Routine Procedure 10/17/16 20:46 Ordered Oxygen Per RT Protocol CONTINUOUS Resp. Care 10/17/16 20:46 Active Pulse Oximetry CONTINUOUS Resp. Care 10/17/16 17:04 Completed If Chest Pain Persists: CONTINUOUS Routine Ca 10/17/16 20:46 Active Isolation Precautions CONTIN Routine Ca 10/17/16 17:19 Active Notify Physician ONCE Routine Ca 10/17/16 17:04 Active Notify of Abnormal Troponin CONTINUOUS Routine Ca 10/17/16 20:46 Active Jimmy Mckeon CONTIN Routine Ca 10/17/16 20:46 Active Telemetry in ED ED TELE Routine Ca 10/17/16 17:04 Active Hospital Status ONCE Status 10/17/16 20:46 Active Transfer Order Routine Transfer 10/17/16 Completed Administered Medications Discontinued Medications Clonidine (Catapres) 0.2 mg PO NOW STA Stop: 10/17/16 17:51 Last Admin: 10/17/16 18:09 Dose: 0.2 mg Hydromorphone HCl (Dilaudid 1 Mg/Ml Syringe) 2 mg IVP NOW STA Stop: 10/17/16 19:33 Last Admin: 10/17/16 19:40 Dose: 2 mg Ondansetron HCl (Zofran 4 Mg/2 Ml Vial) 8 mg IVP NOW STA Stop: 10/17/16 19:33 Last Admin: 10/17/16 19:39 Dose: 8 mg Sodium Chloride (Hepwell (Normal Saline Flush)) 0 - 10 ml IVF ONCE ONE Stop: 10/17/16 17:05 Last Admin: 10/17/16 19:41 Dose: Not Given Consultation #1 Time: 19:38 Consulted: hospitalist Physician: Jason Davis Reviewed: patient summary Agreed Upon: treatment plan, need for follow-up Will See Patient: in hospital Chest Pain MDM Testing Ordered: Laboratory 10/17/16 17:35 CBC/DIFF GROUP Stat COMPREHENSIVE METABOLIC PANEL Stat PARTIAL THROMBOPLASTIN TIME Stat TROPONIN T Stat VASCULAR RISK PANEL Routine 10/17/16 21:04 TROPONIN T Timed 10/18/16 01:04 TROPONIN T Timed Radiology 10/17/16 17:04 CHEST AP OR PA Stat Cardiology 10/17/16 17:04 ECG Stat 10/17/16 18:04 ECG Urgent 10/17/16 19:04 ECG Urgent Respiratory 10/17/16 17:04 Pulse Oximetry CONTINUOUS 10/17/16 20:46 Oxygen Per RT Protocol CONTINUOUS Administered Medications Discontinued Medications Clonidine (Catapres) 0.2 mg PO NOW STA Stop: 10/17/16 17:51 Last Admin: 10/17/16 18:09 Dose: 0.2 mg Hydromorphone HCl (Dilaudid 1 Mg/Ml Syringe) 2 mg IVP NOW STA Stop: 10/17/16 19:33 Last Admin: 10/17/16 19:40 Dose: 2 mg Ondansetron HCl (Zofran 4 Mg/2 Ml Vial) 8 mg IVP NOW STA Stop: 10/17/16 19:33 Last Admin: 10/17/16 19:39 Dose: 8 mg Sodium Chloride (Hepwell (Normal Saline Flush)) 0 - 10 ml IVF ONCE ONE Stop: 10/17/16 17:05 Last Admin: 10/17/16 19:41 Dose: Not Given Disposition - Disposition Clinical Impression: Essential hypertension Chest pain Qualifiers: Chest pain type: unspecified Qualified Code(s): R07.9 - Chest pain, unspecified Osteomyelitis Qualifiers: Osteomyelitis type: unspecified type Osteomyelitis location: unspecified site Qualified Code(s): M86.9 - Osteomyelitis, unspecified CAD (coronary artery disease) Qualifiers: Coronary Disease-Associated Artery/Lesion type: [place] artery [place] vs. transplanted heart: [place] heart Associated angina: with unspecified angina Qualified Code(s): I25.119 - Atherosclerotic heart disease of [place] coronary artery with unspecified angina pectoris Diabetes Qualifiers: Diabetes mellitus type: type 2 Diabetes mellitus complication status: with neurologic complications Diabetes mellitus complication detail: with polyneuropathy Diabetes mellitus watermaster insulin use: with watermaster use Qualified Code(s): E11.42 - Type 2 diabetes mellitus with diabetic polyneuropathy Condition: Stable Discharge Disposition: Assigned to Observation Electronically Signed By: Toñito Norwood MD 10/17/162153 Electronically Cosigned By: Cosigned Date/Time: Normal [facility] PARTIAL THROMBOPLASTIN TIMEo n 10-17-2016 aPTT 22.8 s Low 24.8-34.3 [facility] Comment on above: Order Comment: None Performed By: #### P TT ####MAIN LABCLIA:[id number] [place] [address] ANTICOAGULANT? NONE Normal [facility] Comment on above: Order Comment: None Performed By: #### P TT ####MAIN LABCLIA:[id number] [place] [address] TROPONIN Ton 10-17-2016 Troponin T.cardiac mass conc ug/L Normal <0.010 [facility] Comment on above: Result Comment: Valu es > or = 0.01 ng/mL have been shown to have prognosticvalue.Troponin T values > or = 0.01 ng/mL are a prognostic sign inpatients with ischemic heart disease. Clinical judgment isnecessary to distinguish patients who have ischemic heartdisease from those who do not.Patients with low level(<0.20 ng/mL)elevations of troponin Tand diagnostic uncertainty for acute coronary syndromeshould be evaluated by repeat measurements at 4 and 8 hours. Performed By: #### T ROPT ####MAIN LABCLIA:[id number] [place] [address] VASCULAR RISK PANELon 2016 Cholesterol 217 mg/dL High 0-199 [facility] Comment on above: Order Comment: Comme nts: Use blood from ED if available Performed By: #### V ASR ####MAIN LABCLIA:[id number] [facility] [place] [address] HDL Cholesterol 22 mg/dL Low >[address] [facility] Comment on above: Order Comment: Comme nts: Use blood from ED if available Performed By: #### V ASR ####MAIN LABCLIA:[id number] [place] [address] LDL Cholesterol TNP Normal <[address] [facility] Comment on above: Order Comment: Comme nts: Use blood from ED if available Performed By: #### V ASR ####MAIN LABCLIA:[id number] [facility] [address] Triglyceride 523 mg/dL High 0-199 [facility] Comment on above: Order Comment: Comme nts: Use blood from ED if available Result Comment: Unab le to calculate LDL,VLDL. These calculations are notappropriate for specimens in which the Triglycerideconcentrations are greater than 400 mg/dL or with specimensfrom patients who have Type III Hyperlipoproteinemia(electrophoresis broad beta lipoprotein present). Performed By: #### V ASR ####MAIN LABCLIA:[id number] [facility] [address] VLDL CHOLESTEROL TNP Normal 5-40 [facility] Comment on above: Order Comment: Comme nts: Use blood from ED if available Performed By: #### V ASR ####MAIN LABCLIA:[id number] [facility] [place] [address] Vital Signs Date Time Vital Sign Value Performing Clinician Facility 11-27-2024 06:12-0400 Body mass index (BMI) [Ratio] 47.1 kg/m2 Dr. Stacey Coulter MD Work Phone: [facility] 11-27-2024 06:12-0400 Body temperature 207.5 [degF] Dr. Stacey Coulter MD Work Phone: [phone] [place] [address] 11-27-2024 06:12-0400 Body weight 140.[address] Stacey Coulter MD Work Phone: [facility] 11-27-2024 06:12-0400 Diastolic blood pressure 75 mm[Hg] Dr. Stacey Coulter MD Work Phone: [phone] [address] [place] [address] 11-27-2024 06:12-0400 Heart rate 71 /min Dr. Stacey Coulter MD Work Phone: [phone] [place] [address] 11-27-2024 06:12-0400 Respiratory rate 20 /min Dr. Stacey Coulter MD Work Phone: [phone](186)[phone] [place] [address] 11-27-2024 06:12-0400 SaO2% (BldA) [Mass fraction] 93 % Dr. Stacey Coulter MD Work Phone: [phone])[phone] [place] [address] 11-27-2024 06:12-0400 Systolic blood pressure 140 mm[Hg] Dr. Stacey Coulter MD Work Phone: 4(337)635-349416 [place] [address] 11-11-2024 08:14-0400 Body height 172.[address] Stacey Coulter MD Work Phone: 0(008)[phone] [place] [address] 11-11-2024 08:14-0400 Body weight 142.[address] Stacey Coulter MD Work Phone: 3(454)[phone] [place] [address] 11-11-2024 08:14-0400 Heart rate 75 /min Dr. Stacey Coulter MD Work Phone: 7(278)[phone] [place] [address] 11-11-2024 08:14-0400 Inhaled oxygen flow rate 2 L/min Dr. Stacey Coulter MD Work Phone: [phone](740)[phone] [place] [address] 11-11-2024 08:14-0400 SaO2% (BldA) [Mass fraction] 92 % Dr. Stacey Coulter MD Work Phone: [phone])120-214416 [place] [address] 10-17-2024 06:45-0400 Body height 165.[address] Stacey Coulter MD Work Phone: [facility] 10-17-2024 06:45-0400 Body mass index (BMI) [Ratio] 51.9 kg/m2 Dr. Stacey Coulter MD Work Phone: [facility] 10-17-2024 06:45-0400 Body temperature 97.5 [degF] Dr. Stacey Coulter MD Work Phone: [facility] 10-17-2024 06:45-0400 Body weight 141.[address] Stacey Coulter MD Work Phone: [facility] 10-17-2024 06:45-0400 Diastolic blood pressure 74 mm[Hg] Dr. Stacey Coulter MD Work Phone: [facility] 10-17-2024 06:45-0400 Heart rate 65 /min Dr. Stacey Coulter MD Work Phone: [facility] 10-17-2024 06:45-0400 Respiratory rate 18 /min Dr. Stacey Coulter MD Work Phone: [facility] 10-17-2024 06:45-0400 SaO2% (BldA) [Mass fraction] 93 % Dr. Stacey Coulter MD Work Phone: [facility] 10-17-2024 06:45-0400 Systolic blood pressure 123 mm[Hg] Dr. Stacey Coulter MD Work Phone: [facility] 06-14-2024 07:53-0400 Body temperature 98.9 [degF] Dr. Stacey Coulter MD Work Phone: [facility] 06-14-2024 07:53-0400 Diastolic blood pressure 106 mm[Hg] Dr. Stacey Coulter MD Work Phone: [facility] 06-14-2024 07:53-0400 Heart rate 82 /min Dr. Stacey Coulter MD Work Phone: [facility] 06-14-2024 07:53-0400 Respiratory rate 16 /min Dr. Stacey Coulter MD Work Phone: [facility] 06-14-2024 07:53-0400 SaO2% (BldA) [Mass fraction] 96 % Dr. Stacey Coulter MD Work Phone: [facility] 06-14-2024 07:53-0400 Systolic blood pressure 169 mm[Hg] Dr. Stacey Coulter MD Work Phone: [facility] 09-29-2023 16:07-0400 Diastolic Blood Pressure Non-Invasive 74 mm[Hg] TOÑITO VELA MD [address] [place] [address] 09-29-2023 16:07-0400 Systolic Blood Pressure Non-Invasive 136 mm[Hg] TOÑITO VELA MD [address] [place] [address] 09-29-2023 15:54-0400 Heart rate 68 /min TOÑITO VELA MD [address] [place] [address] 09-29-2023 15:54-0400 Reason For Taking VItal Signs TOÑITO VELA MD [address] [place] [address] 09-29-2023 15:54-0400 Respiratory rate 18 /min TOÑITO VELA MD [address] [place] [address] 09-29-2023 14:49-0400 Blood Pressure Cuff Size TOÑITO VELA MD [address] [place] [address] 09-29-2023 14:49-0400 Blood Pressure Location TOÑITO VELA MD [address] [place] [address] Comment on above: Result Comment: [facility] 09-29-2023 14:49-0400 Blood Pressure Method TOÑITO VELA MD [address] [place] [address] 09-29-2023 14:49-0400 Body temperature 97.52 [degF] TOÑITO VELA MD [address] [place] [address] 09-29-2023 14:49-0400 Diastolic Blood Pressure Non-Invasive 84 mm[Hg] TOÑITO VELA MD [address] [place] [address] 09-29-2023 14:49-0400 Heart rate 68 /min TOÑITO VELA MD [address] [place] [address] 09-29-2023 14:49-0400 Reason For Taking VItal Signs TOÑITO VELA MD [address] [place] [address] 09-29-2023 14:49-0400 Respiratory rate 18 /min TOÑITO VELA MD [address] [place] [address] 09-29-2023 14:49-0400 Systolic Blood Pressure Non-Invasive 138 mm[Hg] TOÑITO VELA MD [address] [place] [address] 09-29-2023 11:19-0400 Blood Pressure Cuff Size TOÑITO VELA MD [address] [place] [address] 09-29-2023 11:19-0400 Blood Pressure Location TOÑITO VELA MD [address] [place] [address] Comment on above: Result Comment: [facility] 09-29-2023 11:19-0400 Blood Pressure Method TOÑITO VELA MD [address] [place] [address] 09-29-2023 11:19-0400 Body temperature 97.7 [degF] TOÑITO VELA MD [address] [place] [address] 09-29-2023 11:19-0400 Diastolic Blood Pressure Non-Invasive 82 mm[Hg] TOÑITO VELA MD [address] [place] [address] 09-29-2023 11:19-0400 Heart rate 67 /min TOÑITO VELA MD [address] [place] [address] 09-29-2023 11:19-0400 Reason For Taking VItal Signs TOÑITO VELA MD [address] [place] [address] 09-29-2023 11:19-0400 Respiratory rate 18 /min TOÑITO VELA MD [address] [place] [address] 09-29-2023 11:19-0400 Systolic Blood Pressure Non-Invasive 130 mm[Hg] TOÑITO VELA MD [address] [place] [address] 09-29-2023 06:44-0400 Blood Pressure Cuff Size TOÑITO VELA MD [address] [place] [address] 09-29-2023 06:44-0400 Blood Pressure Location TOÑITO VELA MD [address] [place] [address] 09-29-2023 06:44-0400 Blood Pressure Method TOÑITO VELA MD [address] [place] [address] 09-29-2023 06:44-0400 Body temperature 97.52 [degF] TOÑITO VELA MD [address] [place] [address] 09-28-2023 22:43-0400 Mean blood pressure 80 mm[Hg] TOÑITO VELA MD [address] [place] [address] 09-28-2023 20:39-0400 Mean blood pressure 89 mm[Hg] TOÑITO VELA MD [address] [place] [address] 09-28-2023 16:30-0400 Mean blood pressure 94 mm[Hg] TOÑITO VELA MD [address] [place] [address] 09-27-2023 11:04-0400 Body height 177.8 cm TOÑITO VELA MD [address] [place] [address] 09-27-2023 11:04-0400 Body weight 144.7 kg TOÑITO VELA MD [address] [place] [address] 09-27-2023 11:04-0400 Body weight 45.77 kg/m2 TOÑITO VELA MD [address] [place] [address] 09-27-2023 09:45-0400 Respiratory Rate - Anes 0 br/min TOÑITO VELA MD [address] [place] [address] 09-27-2023 09:40-0400 Respiratory Rate - Anes 9 br/min TOÑITO VELA MD [address] [place] [address] 09-27-2023 09:35-0400 Respiratory Rate - Anes 6 br/min TOÑITO VELA MD [address] [place] [address] 09-27-2023 02:59-0400 Heart rate 61 /min TOÑITO VELA MD [address] [place] [address] 09-26-2023 20:36-0400 Body temperature 97.88 [degF] TOÑITO VELA MD [address] [place] [address] 09-26-2023 20:36-0400 Heart rate 66 /min TOÑITO VELA MD [address] [place] [address] 09-26-2023 16:37-0400 Body temperature 97.52 [degF] TOÑITO VELA MD [address] [place] [address] 09-26-2023 16:37-0400 Heart rate 65 /min TOÑITO VELA MD [address] [place] [address] 09-26-2023 11:54-0400 Body temperature 97.34 [degF] TOÑITO VELA MD [address] [place] [address] 09-26-2023 11:54-0400 Heart rate 69 /min TOÑITO VELA MD [address] [place] [address] 09-26-2023 06:15-0400 Body height 177.8 cm TOÑITO VELA MD [address] [place] [address] 09-26-2023 06:15-0400 Body weight 45.77 kg/m2 TOÑITO VELA MD [address] [place] [address] 09-26-2023 06:15-0400 Body weight 144.7 kg TOÑITO VELA MD [address] [place] [address] 07-31-2023 08:09-0400 Body height 177.8 cm TOÑITO VELA MD [address] [place] [address] 07-31-2023 08:09-0400 Body temperature 98.06 [degF] TOÑITO VELA MD [address] [place] [address] 07-31-2023 08:09-0400 Body weight 149.5 kg TOÑITO VELA MD [facility] 07-31-2023 08:09-0400 Diastolic Blood Pressure Non-Invasive 91 mm[Hg] TOÑITO VELA MD [facility] 07-31-2023 08:09-0400 Heart rate 70 /min TOÑITO VELA MD [facility] 07-31-2023 08:09-0400 Systolic Blood Pressure Non-Invasive 179 mm[Hg] TOÑITO VELA MD [facility] 01-18-2023 09:28-0400 Body height 180.3 cm Samuel Calloway MD Work Phone: [facility] 01-18-2023 09:28-0400 Body mass index (BMI) [Ratio] 45.35 kg/m2 Samuel Calloway MD Work Phone: [facility] 01-18-2023 09:28-0400 Body weight 147.42 kg Samuel Calloway MD Work Phone: [facility] 01-18-2023 09:28-0400 Diastolic blood pressure 84 mm[Hg] Samuel Calloway MD Work Phone: [facility] 01-18-2023 09:28-0400 Heart rate 72 /min Samuel Calloway MD Work Phone: [facility] 01-18-2023 09:28-0400 Respiratory rate 14 /min Samuel Calloway MD Work Phone: [facility] 01-18-2023 09:28-0400 SaO2% (BldA) [Mass fraction] 93 % Samuel Calloway MD Work Phone: [facility] Comment on above: 01-18-2023 09:28-0400 Systolic blood pressure 175 mm[Hg] Samuel Calloway MD Work Phone: [facility] 10-27-2022 14:00-0400 Body temperature 98.6 [degF] CHAD JOSEPH MD [facility] 10-27-2022 14:00-0400 Diastolic Blood Pressure Non-Invasive 69 1 CHAD JOSEPH MD [address] [place] [address] 10-27-2022 14:00-0400 Heart rate 71 /min CHAD JOSEPH MD [address] [place] [address] 10-27-2022 14:00-0400 Systolic Blood Pressure Non-Invasive 153 1 CHAD JOSEPH MD [address] [place] [address] 10-27-2022 13:40-0400 Body temperature 97.7 [degF] CHAD JOSEPH MD [address] [place] [address] 10-27-2022 13:40-0400 Diastolic Blood Pressure Non-Invasive 75 1 CHAD JOSEPH MD [address] [place] [address] 10-27-2022 13:40-0400 Heart rate 74 /min CHAD JOSEPH MD [address] [place] [address] 10-27-2022 13:40-0400 Mean blood pressure 93 mm[Hg] CHAD JOSEPH MD [address] [place] [address] 10-27-2022 13:40-0400 Respiratory rate 16 /min CHAD JOSEPH MD [address] [place] [address] 10-27-2022 13:40-0400 Systolic Blood Pressure Non-Invasive 159 1 CHAD JOSEPH MD [address] [place] [address] 10-27-2022 13:25-0400 Diastolic Blood Pressure Non-Invasive 71 1 CHAD JOSEPH MD [address] [place] [address] 10-27-2022 13:25-0400 Heart rate 72 /min CHAD JOSEPH MD [address] [place] [address] 10-27-2022 13:25-0400 Mean blood pressure 94 mm[Hg] CHAD JOSEPH MD [address] [place] [address] 10-27-2022 13:25-0400 Systolic Blood Pressure Non-Invasive 155 1 CHAD JOSEPH MD [address] [place] [address] 10-27-2022 13:10-0400 Heart rate 76 /min CHAD JOSEPH MD [address] [place] [address] 10-27-2022 13:10-0400 Mean blood pressure 101 mm[Hg] CHAD JOSEPH MD [address] [place] [address] 10-27-2022 12:56-0400 Body temperature 98.06 [degF] CHAD JOSEPH MD [address] [place] [address] 10-27-2022 08:46-0400 Heart rate 82 /min CHAD JOSEPH MD [address] [place] [address] 10-27-2022 08:39-0400 Body height 177.8 cm CHAD JOSEPH MD [address] [place] [address] 10-27-2022 08:39-0400 Body weight 143.3 kg CHAD JOSEPH MD [address] [place] [address] 10-27-2022 08:39-0400 Body weight 45.33 kg/m2 CHAD JOSEPH MD [address] [place] [address] 10-04-2020 17:45-0400 Diastolic blood pressure 85 mm[Hg] Jane Gerber MD [facility] Phone[facility] Work Phone: 10-04-2020 17:45-0400 Heart rate 83 /min Jane Gerber MD Work Phone: [facility] Work Phone: 10-04-2020 17:45-0400 Systolic blood pressure 153 mm[Hg] Jane Gerber MD Work Phone: [facility] Work Phone: 10-04-2020 17:02-0400 SaO2% (BldA) [Mass fraction] 87 % Jane Gerber MD Work Phone: [facility] Work Phone: 10-04-2020 16:18-0400 Respiratory rate 13 /min Jane Gerber MD Work Phone: [facility] Work Phone: 10-04-2020 14:40-0400 Body height 180.3 cm Jane Gerber MD Work Phone: [facility] Work Phone: 10-04-2020 14:40-0400 Body mass index (BMI) [Ratio] 45.33 kg/m2 Jane Gerber MD Work Phone: [facility] Work Phone: 10-04-2020 14:40-0400 Body temperature 98.71 [degF] Jane Gerber MD Work Phone: [facility] Work Phone: 10-04-2020 14:40-0400 Body weight 147.42 kg [facility] Work Phone: 11-06-2019 13:55-0400 BP Diastolic 87 mm[Hg] [facility] [place] 11-06-2019 13:55-0400 BP Systolic 168 mm[Hg] [facility] [place] 11-06-2019 11:31-0400 Body Temperature 98.2 [degF] [facility] [place] 11-06-2019 05:59-0400 Pulse (Heart Rate) 61 /min [facility] 11-06-2019 05:59-0400 Pulse Oximetry 94 % [facility] [place] 11-05-2019 16:29-0400 Respiratory Rate 22 /min [facility] [place] 10-24-2019 15:26-0400 Height 180.3 cm [facility] [place] 10-22-2019 06:05-0400 BMI (Body Mass Index) 39.75 kg/m2 [facility] [place] 10-22-2019 06:05-0400 Body weight 129.28 kg [facility] [place] Encounters Encounter Date Encounter Type Care Provider Facility Start: 02-28-2025 ambulatory Wild Galena Facility :[facility] Start: 01-13-2025 End: 01-13-2025 ambulatory EM MARTINEZ [facility] Start: 11-27-2024 End: 11-27-2024 Patient encounter procedure STATEMENT CLERK Shamika Medina [facility] Work Phone: Start: 11-27-2024 End: 11-27-[address] Stacey Coulter MD Work Phone: -[facility] Start: 11-14-2024 ambulatory Sae Pepe Facility:[facility] Start: 11-14-2024 Non-patient / Non-visit Dr. Sae Pepe DO -[facility] Start: 11-11-2024 End: 11-11-[address] Stacey Coulter MD Work Phone: -Cat Scan [facility] Start: 11-11-2024 End: 11-11-[address] Sae Pepe DO -Cat [facility] Work Phone: Start: 11-11-2024 End: 11-11-2024 ambulatory Sae Pepe Facility:[facility] Start: 11-07-2024 End: 11-07-[address] STACEY COULTER MD Facility:A Start: 11-07-2024 End: 11-07-[address] ADAM RAMOS MD [facility] Start: 11-06-2024 End: 11-06-[address] Stacey Coulter MD Work Phone: -Pulmonary Services/Neurology Start: 11-06-2024 End: 11-06-[address] Sae Pepe DO -Pulmonary Services/Neurology Work Phone: Start: 11-06-2024 End: 11-06-2024 ambulatory Sae Pepe Facility:[facility] Start: 10-17-2024 End: 10-17-[address] Sae Pepe DO -[facility] Work Phone: Start: 10-17-2024 End: 10-17-[address] Stacey Coulter MD Work Phone: -[facility] Start: 10-02-2024 End: 10-02-2024 ambulatory SAE PEPE [facility] Start: 09-23-2024 End: 09-23-2024 ambulatory EM MARTINEZ [facility] Start: 09-10-2024 End: 09-11-2024 Emergency department patient visit STACEY LÓPEZ [facility] Start: 08-15-2024 End: 08-15-2024 ambulatory EM MARTINEZ [facility] Start: 07-23-2024 End: 07-23-2024 ambulatory STACEY LÓPEZ [facility] Start: 07-17-2024 End: 07-17-2024 Patient encounter procedure Wild Sanchez DO -Ultrasound [facility] Work Phone: Start: 07-17-2024 End: 07-17-2024 ambulatory Wild Sanchez Facility:[facility] Start: 07-09-2024 End: 07-09-2024 ambulatory EM MARTINEZ [facility] Start: 06-19-2024 End: 06-19-2024 Emergency department patient visit STACEY LÓPEZ [facility] Start: 06-14-2024 End: 06-14-2024 Admission to same day surgery center Wild Sanchez DO -Endoscopy Work Phone: Start: 06-14-2024 End: 06-14-[address] Stacey Coulter MD Work Phone: [facility] Work Phone: Start: 06-13-2024 End: 06-13-[address] Stacey Coulter MD Work Phone: [facility] Work Phone: Start: 06-13-2024 End: 06-13-2024 Patient encounter procedure Wild Sanchez DO -Cat Scan, [facility] Work Phone: Start: 06-13-2024 End: 06-13-2024 ambulatory Wild Sanchez Facility:[facility] Start: 05-30-2024 End: 05-30-2024 ambulatory EM MARTINEZ [facility] Start: 05-16-2024 End: 05-16-2024 Patient encounter procedure Wild Sanchez [facility] Work Phone: Start: 05-16-2024 End: 05-16-2024 ambulatory Stacey Coulter Facility:[facility] Start: 04-17-2024 End: 04-17-2024 ambulatory EM Henley [facility] Start: 03-20-2024 ambulatory LUCIAN Henley [facility] Start: 09-26-2023 End: 09-29-2023 Evaluation and management of inpatient TOÑITO VELA MD [facility] Start: 07-31-2023 ambulatory TOÑITO VELA MD Fac ility:A Start: 07-31-2023 End: 07-31-2023 ambulatory TOÑITO VELA MD Facility:[facility] Start: 07-31-2023 End: 07-31-2023 SAME DAY STAY TOÑITO VELA MD [facility] Start: 06-06-2023 End: 09-12-2023 Telephone encounter Samuel Calloway MD Work Phone: [facility]monary [facility] Comment on above: Appointment Start: 01-18-2023 End: 01-18-2023 ambulatory [facility] Start: 01-18-2023 End: 01-18-2023 Office outpatient visit 25 minutes Samuel Calloway MD Work Phone: [facility] Pulmonary Comment on above: Chronic obstructive pulmonary disease, unspecified COPD type (HCC) (Primary Dx); Chronic respiratory failure with hypoxia (HCC); Smoker; Mediastinal lymphadenopathy; Morbid obesity (HCC) Start: 11-30-2022 End: 11-30-2022 ambulatory CHAD JOSEPH MD Facility:[facility] Start: 11-30-2022 End: 11-30-2022 Patient encounter procedure CHAD JOSEPH MD [facility] Start: 10-27-2022 End: 10-27-2022 SAME DAY STAY CHAD JOSEPH MD [facility] Start: 08-17-2022 End: 08-17-2022 Admission to same day surgery center ANDREW MARS MD [facility] Start: 06-22-2022 End: 06-22-2022 [facility] Start: 02-02-2021 End: 02-02-2021 Subsequent hospital visit by physician Tod Soriano MD [facility] Start: 01-14-2021 End: 01-14-2021 Subsequent hospital visit by physician Tod Soriano MD Work Phone: [facility] Start: 12-31-2020 End: 12-31-2020 Subsequent hospital visit by physician Tod Soriano MD Work Phone: [facility] Start: 10-04-2020 End: 10-04-2020 Emergency department patient visit Jane Gerber MD Work Phone: [facility] ED Comment on above: Other chronic pain ( Primary Dx); Chest pain, atypical; History of lymphoma; Hyperglycemia Start: 12-27-2019 End: 12-27-2019 Subsequent hospital visit by physician Hansel Moore Work Phone: [facility] CT SCAN Comment on above: Nodular lymphocyte p redominant Hodgkin lymphoma, unspecified body region (HCC) Start: 12-17-2019 End: 12-17-2019 Subsequent hospital visit by physician Hansel Moore Work Phone: [facility] [address] Start: 10-21-2019 Patient encounter procedure JOSE Chris [facility] Start: 01-22-2019 End: 01-23-2019 Patient encounter procedure RIKI Christiana [facility] Start: 02-01-2017 Ambulatory Jak Durham [facility] Start: 01-08-2017 Evaluation and management of inpatient UNKNOWN PROVIDER [facility] Start: 12-18-2016 Ambulatory UNKNOWN PROVIDER [facility] Start: 11-10-2016 End: 11-10-2016 Emergency department patient visit Tommie Avila Facility:[facility] Start: 10-27-2016 End: 10-27-2016 Emergency department patient visit Noble Gauthier Facility:[facility] Start: 10-17-2016 End: 10-18-2016 Evaluation and management of inpatient Castro Jung Facility:[facility] Procedures Date Procedure Procedure Detail Performing Clinician Start: 11-11-[address] Stacey Coulter MD Work Phone: Start: 07-17-2024 Ultrasound elastogra phy of liver Dr. Stacey Coulter MD Work Phone: Start: 06-19-2024 Urinalysis LUCIAN AGGARWAL Comment on above: Result Comment: URIN ALYSIS Performed By: [id number] ####[facility],[address] [place], [place] [id number] Start: 06-14-[address] Pat Coulter MD Work Phone: Start: 06-13-2024 Computed tomography of abdomen and pelvis with contrast Dr. Stacey Coulter MD Work Phone: Start: 05-22-2024 PSA screening LUCIAN YOUNG Comment on above: Performed By: #### [id number] ####[facility],[address] [place], [place] [id number] Start: 06-22-2022 Follow-up visit Follow-up SAMUEL CALLOWAY Start: 10-04-2020 Gluc bld gluc mntr d ev cleared fda spec home use Jane Gerber MD Work Phone: Start: 10-04-2020 Basic metabolic pane l calcium total Jane Gerber MD Work Phone: Start: 10-04-2020 Hepatic function panel Jane Gerber MD Work Phone: Start: 10-04-2020 Radiologic exam ches t single view Jane Gerber MD Work Phone: Start: 12-27-2019 Ct thorax w/o contra st material Hansel Niraula Work Phone: Start: 12-27-2019 Ct abdomen & pelvis w/o contrast material Hansel Niraula Work Phone: Start: 11-06-2019 Gluc bld gluc mntr d ev cleared fda spec home use Amor Magallon Work Phone: Start: 11-06-2019 Gluc bld gluc mntr d ev cleared fda spec home use Amor Magallon Work Phone: Start: 11-05-2019 Gluc bld gluc mntr d ev cleared fda spec home use Amor Magallon Work Phone: Start: 11-05-2019 Gluc bld gluc mntr d ev cleared fda spec home use Sil [employer] Work Phone: Start: 11-05-2019 Gluc bld gluc mntr d ev cleared fda spec home use [employer] Work Phone: Start: 11-05-2019 COVID-19 Amor Machuca Work Phone: Start: 11-05-2019 Gluc bld gluc mntr d ev cleared fda spec home use Amor Magallon Work Phone: Start: 11-04-2019 Gluc bld gluc mntr d ev cleared fda spec home use Amor Magallon Work Phone: Start: 11-04-2019 Gluc bld gluc mntr d ev cleared fda spec home use Amor Magallon Work Phone: Start: 11-04-2019 Gluc bld gluc mntr d ev cleared fda spec home use Amor Magallon Work Phone: Start: 11-04-2019 Gluc bld gluc mntr d ev cleared fda spec home use Amor Magallon Work Phone: Start: 11-03-2019 Gluc bld gluc mntr d ev cleared fda spec home use Amor Magallon Work Phone: Start: 11-03-2019 Gluc bld gluc mntr d ev cleared fda spec home use Amor Magallon Work Phone: Start: 11-03-2019 End: 11-03-2019 Gluc bld gluc mntr dev cleared fda spec home use Amor Magallon Work Phone: Start: 11-03-2019 Basic metabolic pane l calcium total Crow Dennison Work Phone: Start: 11-02-2019 Gluc bld gluc mntr d ev cleared fda spec home use Amor Magallon Work Phone: Start: 11-02-2019 Gluc bld gluc mntr d ev cleared fda spec home use Amor Thomas Sherita Work Phone: Start: 11-02-2019 Gluc bld gluc mntr d ev cleared fda spec home use Amor Thomas Sherita Work Phone: Start: 11-02-2019 Gluc bld gluc mntr d ev cleared fda spec home use Amor Magallon Work Phone: Start: 11-01-2019 Gluc bld gluc mntr d ev cleared fda spec home use Amor Thomas Sherita Work Phone: Start: 11-01-2019 Gluc bld gluc mntr d ev cleared fda spec home use Amor Magallon Work Phone: Start: 11-01-2019 Gluc bld gluc mntr d ev cleared fda spec home use Amor Magallon Work Phone: Start: 11-01-2019 Gluc bld gluc mntr d ev cleared fda spec home use Amor Magallon Work Phone: Start: 10-31-2019 Gluc bld gluc mntr d ev cleared fda spec home use Amor Thomas Sherita Work Phone: Start: 10-31-2019 Gluc bld gluc mntr d ev cleared fda spec home use Amor Thomas Sherita Work Phone: Start: 10-31-2019 Gluc bld gluc mntr d ev cleared fda spec home use Amor M Sherita Work Phone: Start: 10-30-2019 Gluc bld gluc mntr d ev cleared fda spec home use Amor Magallon Work Phone: Start: 10-30-2019 Gluc bld gluc mntr d ev cleared fda spec home use Amor Magallon Work Phone: Start: 10-30-2019 Gluc bld gluc mntr d ev cleared fda spec home use Amor Magallon Work Phone: Start: 10-30-2019 Gluc bld gluc mntr d ev cleared fda spec home use Amor Magallon Work Phone: Start: 10-29-2019 Gluc bld gluc mntr d ev cleared fda spec home use Amor Magallon Work Phone: Start: 10-29-2019 Gluc bld gluc mntr d ev cleared fda spec home use Amor Magallon Work Phone: Start: 10-29-2019 Gluc bld gluc mntr d ev cleared fda spec home use Amor Magallon Work Phone: Start: 10-29-2019 Gluc bld gluc mntr d ev cleared fda spec home use Amor Magallon Work Phone: Start: 10-29-2019 Hemoglobin glycosylated a1c Amor Magallon Work Phone: Start: 10-29-2019 Lipid panel Amor Machuca Work Phone: Start: 10-29-2019 Lipid 1996 panel - S boaz or Plasma Samuel Calloway MD Work Phone: Start: 10-28-2019 Gluc bld gluc mntr d ev cleared fda spec home use Amor Magallon Work Phone: Start: 10-28-2019 Gluc bld gluc mntr d ev cleared fda spec home use Amor Magallon Work Phone: Start: 10-28-2019 Gluc bld gluc mntr d ev cleared fda spec home use Amor Thomas Sherita Work Phone: Start: 10-28-2019 Gluc bld gluc mntr d ev cleared fda spec home use Amor Thomas Sherita Work Phone: Start: 10-27-2019 Gluc bld gluc mntr d ev cleared fda spec home use Amor Thomas Sherita Work Phone: Start: 10-27-2019 Gluc bld gluc mntr d ev cleared fda spec home use Amor Thomas Sherita Work Phone: Start: 10-27-2019 Gluc bld gluc mntr d ev cleared fda spec home use Amor Thomas Sherita Work Phone: Start: 10-27-2019 Gluc bld gluc mntr d ev cleared fda spec home use Amor Thomas Sherita Work Phone: Start: 10-26-2019 Gluc bld gluc mntr d ev cleared fda spec home use Amor Thomas Sherita Work Phone: Start: 10-26-2019 Gluc bld gluc mntr d ev cleared fda spec home use Amor Thomas Float: [place] Work Phone: Start: 10-26-2019 End: 10-26-2019 Gluc bld gluc mntr dev cleared fda spec home use Amor Thomas Sherita Work Phone: Start: 10-25-2019 Gluc bld gluc mntr d ev cleared fda spec home use Amor Thomas Sherita Work Phone: Start: 10-25-2019 Gluc bld gluc mntr d ev cleared fda spec home use Amor Thomas Sherita Work Phone: Start: 10-25-2019 Gluc bld gluc mntr d ev cleared fda spec home use Amor Thomas Sherita Work Phone: Start: 10-25-2019 Gluc bld gluc mntr d ev cleared fda spec home use Amor Thomas Sherita Work Phone: Start: 10-24-2019 Gluc bld gluc mntr d ev cleared fda spec home use Amor Magallon Work Phone: Start: 10-24-2019 Gluc bld gluc mntr d ev cleared fda spec home use Amor Thomas Sherita Work Phone: Start: 10-24-2019 Gluc bld gluc mntr d ev cleared fda spec home use Amor Thomas Sherita Work Phone: Start: 10-24-2019 End: 10-24-2019 Gluc bld gluc mntr dev cleared fda spec home use Amor Thomas Sherita Work Phone: Start: 10-23-2019 Gluc bld gluc mntr d ev cleared fda spec home use Amor Thomas Sherita Work Phone: Start: 10-23-2019 Gluc bld gluc mntr d ev cleared fda spec home use Amor Thomas Sherita Work Phone: Start: 10-23-2019 Gluc bld gluc mntr d ev cleared fda spec home use Amor Magallon Work Phone: Start: 10-23-2019 Gluc bld gluc mntr d ev cleared fda spec home use Amor Thomas Sherita Work Phone: Start: 10-22-2019 End: 10-22-2019 Gluc bld gluc mntr dev cleared fda spec home use Amor Thomas Sherita Work Phone: Start: 10-21-2019 COVID-19 Sil valerio Work Phone: Start: 10-21-2019 Drug screen class list a Unknown Provider Result Start: 10-21-2019 Urnls dip stick/tabl et rgnt auto w/o microscopy Unknown Provider Result Start: 10-21-2019 Radiologic exam ches t single view Aj Christiansen Work Phone: Start: 10-21-2019 Radiologic examinati on pelvis 1/2 views Aj Christiansen Work Phone: Start: 10-21-2019 Ecg routine ecg w/le ast 12 lds w/i&r Sil Franco Work Phone: Start: 10-21-2019 Ct thorax w/o contra st material Aj Christiansen Work Phone: Start: 10-21-2019 Assay of ethanol Unknow n Provider Result Start: 10-21-2019 Basic metabolic pane l calcium total Unknown Provider Result Start: 10-21-2019 Blood count complete auto&auto difrntl wbc Unknown Provider Result Start: 10-21-2019 Hepatic function panel Unknown Provider Result Start: 10-21-2019 PROTIME/INR & PTT Unkno wn Provider Result Start: 10-21-2019 Blood typing serologic abo Unknown Provider Result Start: 10-21-2019 PATHOGEN REDUCED LEK UOREDUCED PLATELET PHERESIS Unknown Provider Result Start: 10-21-2019 PREPARE FRESH FROZEN PLASMA Unknown Provider Result Start: 04-12-2019 End: 04-12-2019 Electrocardiogram Angioplasty of arterial graft CHAD JOSEPH MD Comment on above: with stent placement Arthroplasty of knee CHAD STAPLES MD Back structure, excl uding neck (body structure) TOÑITO VELA MD Comment on above: Major bacvk surgery Spinal arthrodesis CHAD Ashley MD Plan of Treatment Date Care Activity Detail Author Start: 10-20-2029 DTaP/Tdap/Td vaccine (2 - Td or Tdap) DTaP/Tdap/Td vaccine (2 - Td or Tdap) [facility] Start: 10-20-2029 DTaP/Tdap/Td vaccine (2 - Td) DTaP/Tdap/Td vaccine (2 - Td) [place] Start: 10-20-2029 DTaP/Tdap/Td Vaccines (2 - Td or Tdap) DTaP/Tdap/Td Vaccines (2 - Td or Tdap) [facility] Start: 2025 RSV Immunization aged 60 or older (1 - 1-dose 60+ series) RSV Immunization aged 60 or older (1 - 1-dose 60+ series) [facility] Start: 06-14-2024 Esophageal motility study w/interp&rpt ESOPHAGUS MOTILITY STUDY [facility] Start: 06-14-2024 Patient discharge [facility] Start: 06-13-2024 Computed tomography of abdomen and pelvis with contrast Abdomen/Pelvis WITH Contrast [facility] Start: 06-13-2024 CT Abdomen and Pelvis W contrast IV [facility] Start: 11-19-2023 Influenza vaccination Influenza Vaccine (Season Ended) [facility] Start: 11-18-2022 COVID-19 Vaccine ( season) COVID-19 Vaccine ( season) [facility] Start: 11-18-2022 Influenza vaccination Influenza Vaccine (#1) [facility] Start: 03-01-2022 COVID-19 Vaccine (5 - Pfizer risk series) COVID-19 Vaccine (5 - Pfizer risk series) [facility] Start: 01-28-2022 Creatinine measurement [facility] Start: 01-28-2022 Diabetes: Estimated Glomerular Filtration Rate for Kidney Health Diabetes: Estimated Glomerular Filtration Rate for Kidney Health [facility] Start: 01-28-2022 Potassium measurement Potassium Level [facility] Start: 01-28-2022 Potassium monitoring Potassium monitoring [facility] Start: 01-28-2022 Prostate specific antigen measurement PSA counseling [facility] Start: 10-22-2021 Creatinine measurement Creatinine monitoring [facility] Work Phone: Start: 10-22-2021 Hemoglobin A1c measurement [facility] Start: 10-22-2021 Potassium monitoring Potassium monitoring [facility] Work Phone: Start: 10-04-2021 Creatinine measurement Creatinine monitoring [facility] Work Phone: Start: 10-04-2021 Potassium monitoring Potassium monitoring [facility] Work Phone: Start: 03-16-2021 End: 03-16-2021 Patient encounter procedure 03/16/2021 Office Visit Urology Denisha Wolff, INDUSTRIAL ENGINEERING MANAGER - CIGAR INSPECTOR [address] [address] [facility] [place] Start: 02-09-2021 End: 02-09-2021 Patient encounter procedure [facility] [address] [facility] Start: 02-01-2021 End: 02-01-2021 ambulatory Gastroenterology [facility] Start: 01-26-2021 End: 01-26-2021 Patient encounter procedure 01/26/2021 Office Visit Urology Denisha Wolff, INDUSTRIAL ENGINEERING MANAGER - CIGAR INSPECTOR [address] [place] [address] [phone] [facility] [place] Start: 01-21-2021 End: 01-21-2021 Patient encounter procedure 01/21/2021 Appointment IP Unit Trevor Corea MD [address] [place] [address] [phone] [facility] [address] [facility] [facility] Start: 12-26-2020 Screening for malignant neoplasm of lung Low dose CT lung screening [facility] Start: 11-20-2020 Statin Therapy Statin Therapy [place] Start: 11-18-2020 Influenza vaccination Flu vaccine (#1) [facility] Start: 11-02-2020 Creatinine measurement Creatinine monitoring [place] Start: 11-02-2020 Potassium monitoring Potassium monitoring [place] Start: 10-28-2020 HbA1c (Bld) [Mass fraction] A1C test (Diabetic or Prediabetic) [place] Start: 10-28-2020 Hemoglobin A1c measurement A1C test (Diabetic or Prediabetic) [facility] Work Phone: Start: 10-28-2020 Lipid panel [facility] Start: 09-30-2020 COVID-19 Vaccine (3 - Pfizer booster) COVID-19 Vaccine (3 - Pfizer booster) [facility] Work Phone: Start: 04-30-2020 COVID-19 Vaccine (3 - Pfizer risk 3-dose series) COVID-19 Vaccine (3 - Pfizer risk 3-dose series) [facility] Work Phone: Start: 11-19-2019 Influenza vaccination Flu vaccine (#1) [place] Start: 12-17-2015 Screening for malignant neoplasm of colon Colon cancer screen colonoscopy [place] Start: 12-17-2015 Shingles Vaccine (1 of 2) Shingles Vaccine (1 of 2) [facility] Start: 2010 Screening for malignant neoplasm of colon Colon cancer screen colonoscopy [facility] Start: 1984 Hepatitis B vaccine (1 of 3 - Risk 3-dose series) Hepatitis B vaccine (1 of 3 - Risk 3-dose series) [facility] Start: 1984 Hepatitis B Vaccines (1 of 3 - 19+ 3-dose series) Hepatitis B Vaccines (1 of 3 - 19+ 3-dose series) [facility] Start: 1984 Zoster Vaccines (1 of 2) Zoster Vaccines (1 of 2) [facility] Start: 12-17-1983 Diabetes: Urine Albumin-Creatinine Ratio for Kidney Health Diabetes: Urine Albumin-Creatinine Ratio for Kidney Health [facility] Start: 12-17-1983 Diabetic microalbuminuria test Diabetic microalbuminuria test [facility] Start: 12-17-1983 Hepatitis C screening Hepatitis C Screening [facility] Start: 1980 HIV screening HIV screen [facility] Start: 1977 COVID-19 Vaccine (1) COVID-19 Vaccine (1) [facility] Work Phone: Start: 1977 Depression Monitoring Depression Monitoring [facility] Start: 1977 Depresssion Monitoring Depresssion Monitoring [facility] Start: 12-17-1975 Diabetic foot examination [facility] Start: 12-17-1975 Diabetic retinal exam Diabetic retinal exam [facility] Start: 12-17-1975 Glaucoma screening Diabetes: Retinopathy Screening [facility] Start: 12-17-1975 Preventive dental service Diabetes: Dental Exam [facility] Start: 12-17-1971 Pneumococcal 0-64 years Vaccine (1 of 2 - PPSV23) Pneumococcal 0-64 years Vaccine (1 of 2 - PPSV23) [facility] Start: 12-17-1971 Pneumococcal 0-64 years Vaccine (1 of 3 - PCV13) Pneumococcal 0-64 years Vaccine (1 of 3 - PCV13) [place] Start: 12-17-1971 Pneumococcal 0-64 years Vaccine (1 of 4 - PCV13) Pneumococcal 0-64 years Vaccine (1 of 4 - PCV13) [facility] Work Phone: Start: 12-17-1971 Pneumococcal Vaccine: Pediatrics (0 to 5 Years) and At-Risk Patients (6 to 64 Years) (1 - PCV) Pneumococcal Vaccine: Pediatrics (0 to 5 Years) and At-Risk Patients (6 to 64 Years) (1 - PCV) [facility] Start: 12-17-1971 Pneumococcal Vaccine: Pediatrics (0 to 5 Years) and At-Risk Patients (6 to 64 Years) (1 of 2 - PCV) Pneumococcal Vaccine: Pediatrics (0 to 5 Years) and At-Risk Patients (6 to 64 Years) (1 of 2 - PCV) [facility] Start: 1966 MMR Vaccines (1 of 1 - Standard series) MMR Vaccines (1 of 1 - Standard series) [facility] Start: 1965 Echocardiography Echocardiogram [facility] Start: 1965 Hepatitis B Vaccines (1 of 3 - 3-dose series) Hepatitis B Vaccines (1 of 3 - 3-dose series) [facility] Start: 1965 Hepatitis C screening Hepatitis C screen [facility] Start: 1965 HIV screening HIV Screening [facility] Start: 1965 Screening for malignant neoplasm of colon [facility] CT Chest [facility] CT Chest WO [facility] Measurement of respiratory function [facility] Patient referral [facility] Work Phone: Tobacco use cessatio n education [facility] Walking distance 6 minutes [facility] Immunizations Immunization Date Immunization Notes Care Provider Fa cili 01-04-2022 SARS-CoV-2 (CV19)mRNA-1273 bivalent vac CHAD JOSEPH MD [facility] 07-26-2021 SARS-CoV-2 mRNA (nizlzqnrbet-yjci-jsbljo e) vaccine CHAD JOSEPH MD [facility] Comment on above: Result Comment: 2022: TPV50 01-22-2021 SARS-CoV-2 mRNA (tozinameran) vaccine CHAD JOSEPH MD [facility] 04-02-2020 SARS-CoV-2 mRNA (tozinameran) vaccine CHAD JOSEPH MD [facility] 03-11-2020 SARS-CoV-2 mRNA (tozinameran) vaccine CHAD JOSEPH MD [facility] 10-21-2019 tetanus toxoid, redu donald diphtheria toxoid, and acellular pertussis vaccine, adsorbed [facility] Comment on above: Result Comment: 2022: VIS DATE: 06/19/2019 02-06-2018 influenza virus vacc ine, unspecified formulation CHAD JOSEPH MD [facility] 04-12-2013 influenza virus vacc ine, unspecified formulation CHAD JOSEPH MD [facility] Payers Date Payer Category Payer Self-pay 2021 Medicaid [id number] 2020 Unknown [employer] [id number] 2020-Present [phone] [address] [place] [address] [id number]. [id number] 1965 Unknown [id number] 2.16.840.1.315779.3.579.2.598 1965 Unknown [id number] 2.16.840.1.730662.3.579.2.598 1965 Unknown [id number] 2.16.840.1.337628.3.579.2.627 1965 Unknown [id number] 2.16.840.1.231256.3.579.2.627 1965 Unknown [id number] 2.16.840.1.234849.3.579.2.627 1965 Unknown [id number] 2.16.840.1.424176.3.579.2.627 1965 Unknown [id number] 2.16.840.1.326816.3.579.2.627 1965 Unknown [id number] 2.16.840.1.900360.3.579.2.651 1965 Unknown [id number] 2.16.840.1.798955.3.579.2.651 1965 Unknown [id number] 2.16.840.1.744294.3.579.2.651 1965 Unknown [id number] 2.16.840.1.324198.3.579.2.651 1965 Unknown [id number] 2.16.840.1.200484.3.579.2.651 1965 Unknown [id number] 2.840.1.290966.3.579.2.65 1965 Unknown [id number] 2.16840.1.156153.3.579.2.65 1965 Unknown [id number] 2.840.1.139191.3.579.2. 1965 Unknown [id number] 2.840.1.569278.3.579.2.65 1965 Unknown [id number] 2.0.1.780454.3.579.2. 1965 Unknown [id number] 2.840.1.477958.3.579.2.651 1959 Medicaid [id number] Unknown Unknown [id number] 05.05.830.1.037300.3.579.2.462 Unknown [id number] .840.1.422850.3.579.2.462 Unknown [id number] 05.05.830.1.549336.3.579.2.462 Unknown [id number] .840.1.578172.3.579.2.462 Unknown [id number] 840.1.348336.3.579.2.462 Unknown [id number] .840.1.258699.3.579.2.462 Unknown [id number] 2.840.1.957408.3.579.2.462 Unknown [id number] 2.840.1.350391.3.579.2.462 Unknown [id number] 2.840.1.732935.3.579.2.462 Unknown [id number] 2.16.840.1.673282.3.579.2.462 Unknown [id number] 2.16.840.1.560767.3.579.2.462 Social History Date Type Detail Facility Start: 10-31-2019 End: 10-03-2023 Tobacco smoking status NHIS Current every day smoker [place] End: 03-20-2012 History of tobacco use Cigarette Smoker [place] Start: 10-31-2019 End: 01-18-2023 Cigarettes smoked current (pack per day) - Reported [place] Start: 1965 Sex Assigned At Not on file M [place] Exposure to SARS-CoV -2 (event) Unable to assess [place] Start: 11-28-2019 End: 01-18-2023 Tobacco use and exposure Never used [place] Start: 11-28-2019 End: 01-18-2023 Alcohol intake Current non-drinker of alcohol (finding) [place] Start: 04-20-2017 Tobacco Comment 10 years [place], [place] Start: 04-20-2017 Tobacco Comment 10 years [facility] Work Phone: Exposure to SARS-CoV -2 (event) Not sure [facility] Tobacco smoking status [facility] Start: 10-13-2022 End: 06-17-2024 Tobacco smoking status Light tobacco smoker (finding) [facility] Start: 01-18-2023 [facility] End: 03-20-2012 History of tobacco use Current smoker [facility] Start: 06-22-2022 End: 01-18-2023 Tobacco use panel [facility] Start: 06-14-2024 End: 06-18-2024 Sex Female (finding) [facility] Start: 1965 Sex Assigned At Male [facility] Start: 04-28-2005 Sex Male (finding) [facility] Functional Status Date Assessment Result Facility 09-29-2023 Functional Status bilateral knee high rem khris/off [facility] 09-29-2023 Functional Status Room check performed [facility] 09-29-2023 Functional Status Done [facility] 09-29-2023 Functional Status [facility] 09-29-2023 Functional Status [facility] 09-29-2023 Functional Status [facility] 09-29-2023 Functional Status [facility] 09-29-2023 Functional Status Minimum assistance [facility] 09-28-2023 Functional Status [facility] 09-28-2023 Functional Status Refused [facility] 09-28-2023 Functional Status [facility] 09-28-2023 Functional Status Nurse Safety Ronna may q2hrs Performed 3pm-3am [facility] 09-28-2023 Functional Status [facility] 09-27-2023 Functional Status [facility] 09-27-2023 Functional Status [facility] 09-27-2023 Functional Status Lunch Percent 100 [facility] 09-27-2023 Functional Status [facility] 09-27-2023 Functional Status Sensory Deficits None A [facility] 09-26-2023 Functional Status Initiated [facility] 09-26-2023 Functional Status [facility] 09-26-2023 Functional Status [facility] 09-26-2023 Functional Status [facility] 07-31-2023 Functional Status Independent [facility] 07-31-2023 Functional Status Room check performed [facility] 10-27-2022 Functional Status Up ad kenyatta [facility] 10-27-2022 Functional Status [facility] 10-27-2022 [facility] Mental Status Date Assessment Result Facility 06-14-2024 Cognitive function Awake;Alert;A ppropriate;Follo ws Commands [facility] Work Phone: 09-29-2023 Mental Status Oriented x 4 [facility] 09-29-2023 Mental Status [facility] 09-29-2023 Mental Status [facility] 07-31-2023 Mental Status Orientation Oriented x 4 [facility] 07-31-2023 Mental Status [facility] 10-27-2022 Mental Status Oriented x 4 [facility] Clinical Notes 10-04-2020 to 11-14-2024 Note Date & Type Note Facility 11-14-2024 Procedure note [facility] 11-11-2024 Radiology Diagnostic study note [facility] Imaging Services [address] [place] [address] Lung Screening MR#: [id number] Acct: [id number] Name: CHITO WELLS Rep #: [id number] : 1965 M 58 From: Jerad Jaquez MD PCP: Dr. Lucian Cheung MD Status: RE G CLI Study:Low Dose CT Lung Screening Date of Exam : 11/11/24 Exam# [id number] Ordering Dr: Barr DO PROCEDURE: LOW DOSE CT LUNG SCREENING 11/11/2024 REASON FOR EXAM: TOBACCO DEPENDENCY Current smoker, 3-4 packs per day times 36 years TECHNIQUE: LOW DOSE CT LUNG SCREENING Coronal and Sagittal reconstruction series were provided. One or more dose reduction techniques were used (e.g., Automated exposure control, adjustment of the mA and/or kV according to patient size, use of iterative reconstruction technique). REFERENCE LINK: [facility] Lung-RADS RADIATION DOSE SUMMARY: CTDlvol: 4.02 mGy DLP: 152 mGycm COMPARISON: None FINDINGS: Lung windows show the lungs to be normally expanded. There is poorly defined opacifications in the right middle lobe likely an infiltrate as there are air bronchograms present but an underlying process can not be excluded and follow-up is recommended to ensure complete resolution. There are scattered airspace opacifications in the lower lung bang suggestive of pneumonitis. No demonstrated effusion, no suspicious noncalcified mass or nodule. Limited soft tissue windows show a normal-appearing thyroid gland. There are scattered subcentimeter in short axis dimension axillary and mediastinal lymph nodes likely reactive. There are calcified coronary vessels. The thoracic aorta tapers normally. There is diffuse thickening and some distention of the esophagus suggesting achalasia and GE reflux but the overall appearance of the esophagus is concerning and further evaluation with endoscopy or upper GI study is recommended to exclude a sinister process. Bony structures show degenerative change. Limited cuts through the upper abdomen do not show a suspicious abnormality CT/Low Dose CT Lung Screening IMPRESSION: Airspace opacifications in the right middle lobe with air bronchograms likely infiltrate. However, follow-up is recommended to ensure complete resolution as a neoplastic process could have a similar appearance. Scattered airspace opacifications in the lower lung bang consistent with pneumonitis. No demonstrated effusion Abnormal appearing esophagus with mucosal thickening and distention may be due to achalasia and/or reflux. However, further evaluation with upper GI or endoscopy recommended to exclude a sinister process. Coronary artery calcification (CAC) is is present Lung-RADS Category: 0 INFLAMMATORY-INCOMPLETE. FINDINGS SUGGESTIVE OF AN INFLAMMATORY OR INFECTIOUS PROCESS. RECOMMEND 1-3 MONTH LDCT. Reading Location: [id number] CC: Dr. Sae Pepe DO; Dr. 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 INDICATION: Diabetic nephropathy. TECHNIQUE/FINDINGS: The procedure was performed in the CT Room following informed consent and a Time Out. Local anesthesia was obtained using 2% lidocaine. With the patient in a prone position, limited axial CT images were obtained to localize the kidneys. The precise skin entry site was identified. The left back was prepped and draped in the usual sterile fashion. A 19.5 cm, 17-G coaxial needle was inserted towards and then into the inferior left kidney in incremental steps, as guided by limited axial CT images. Through the 17-G needle, a 25 cm, 18-G biopsy needle was inserted and core biopsies were performed. A total of 4 biopsies were obtained, which were sent for pathology. The 17-G coaxial needle was removed. Following the biopsies, CT imaging revealed no significant hemorrhage. There were no immediate complications. CT Radiation Dose: Integrated Dose-length product (DLP) = 290.53 mGy*cm. CT Dose Reduction Employed: Per department protocol including the following measures where applicable: Automated exposure control, adjustment of the mAs and/or kVp according to patient size and/or exam, and an iterative reconstruction algorithm. Intra-Service Time (Moderate Sedation): 15 minutes. Patient Monitoring: I personally supervised and directed an independent trained observer who assisted in monitoring the patient's level of consciousness and physiological status throughout the procedure. IMPRESSION: Successful CT-guided percutaneous 18-G core biopsy of the inferior left kidney. Interpreted by: Severino Suarez MD Preliminary Report By: Severino Suarez MD Electronically signed By Severino Suarez MD Dictated Date: 11/10/2024 11:52:35 PM Prelim Date: 11/10/2024 11:55:44 PM Sign Date: 11/10/2024 11:55:44 PM Ordering Provider: ADAM RAMOS [facility] 11-07-2024 Hospital Discharge instructions Patient Education 11/07/2024 14:56:56 Radiology- US Renal Biopsy 12/28/2013(CUSTOM) [place] Renal Biopsy Discharge Instructions Ultrasound Department [facility] Imaging Services [address] [place] [address] Today, you had a biopsy of your Kidney. This procedure was done to help your doctor diagnose and treat the signs and symptoms you have been experiencing. These instructions should be followed after your procedure to reduce the chance of experiencing complications. Diet: Resume your normal diet as tolerated. Activity: Rest for the remainder of the day. You may resume your normal activity tomorrow. You may bathe/shower after 24 hours. Do not soak or submerge site (including swimming or hot tubs) until a scab forms. No heavy lifting, pushing, or straining. Dressing: Check the site for bleeding. Apply pressure to the site if bleeding excessively and call your physician. Change the band aid as needed; it can be removed after 24 hours. Keep the site dry at all times until a scab forms over the site. Pain Control: The puncture site may be sore for 1 to 2 days following the procedure. Bzqd-sez-ponurkf pain medication should be used for pain or discomfort. Please check with the physician who ordered this procedure for you for their specific recommendations. If your pain is not relieved or becomes more severe, notify the physician who sent you for this procedure. If you were sedated for this procedure: Avoid alcoholic beverages for 24 hours after your procedure. Do not drive or operate heavy machinery for 24 hours after your procedure. Do not make any legal decisions for 24 hours after your procedure. Medication: Please resume medications as scheduled EXCEPT resume the Plavix on Monday11/09/24.. When to seek medical help: Severe back or abdomen pain. Bright red urine that gets worse or last more than 24 hours (urine may be pink tinged for 24-48 hours). Lightheadedness, dizziness, or fainting. Infection: fever greater than 101 degrees, chills, redness, warmth, swelling, bleeding, or pus from puncture site. If you experience any of these issues during the first 24 hours, please follow the instruction below: 8:00 am- 5:00 pm call [phone] After 24 hours, contact the physician who ordered this procedure for you. Obtaining test results: Please make an appointment with your doctor to obtain your test results. They are usually available within 4 to 7 business days. Do not assume everything is normal if you have not heard from your doctor or medical facility. It is important for you to follow up on all of your test results. 11/07/2024 14:54:47 Moderate Conscious Sedation, Adult, Care After Moderate Conscious Sedation, Adult, Care After These instructions provide you with information about caring for yourself after your procedure. Your health care provider may also give you more specific instructions. Your treatment has been planned according to current medical practices, but problems sometimes occur. Call your health care provider if you have any problems or questions after your procedure. What can I expect after the procedure? After your procedure, it is common: To feel sleepy for several hours. To feel clumsy and have poor balance for several hours. To have poor judgment for several hours. To vomit if you eat too soon. Follow these instructions at home: For at least 24 hours after the procedure: Do not: ?Participate in activities where you could fall or become injured. ?Drive. ?Use heavy machinery. ?Drink alcohol. ?Take sleeping pills or medicines that cause drowsiness. ?Make important decisions or sign legal documents. ?Take care of children on your own. Rest. Eating and drinking Follow the diet recommended by your health care provider. If you vomit: ?Drink water, juice, or soup when you can drink without vomiting. ?Make sure you have little or no nausea before eating solid foods. General instructions Have a responsible adult stay with you until you are awake and alert. Take mhjf-flp-efwbgbe and prescription medicines only as told by your health care provider. If you smoke, do not smoke without supervision. Keep all follow-up visits as told by your health care provider. This is important. Contact a health care provider if: You keep feeling nauseous or you keep vomiting. You feel light-headed. You develop a rash. You have a fever. Get help right away if: You have trouble breathing. This information is not intended to replace advice given to you by your health care provider. Make sure you discuss any questions you have with your health care provider. Document Released: 12/25/2013 Document Revised: 02/16/2018 Document Reviewed: 06/25/2016 [employer] Patient Education 2020 [employer]. Follow Up Care 10/18/2024 16:29:54 With:ADAM RAMOS MD Address: [address] [facility] [place] [place] [address]- [phone] When: Unknown Comments:Follow-up as needed Follow-up as scheduled With:Go to emergency room if symptoms worsen Address:Unknown When: Unknown [facility] 11-07-2024 Summary of episode note Discharge Instructions Thank you for allowing [facility] to assist you with your healthcare needs. The following is important discharge information regarding your hospital visit. What to do next Follow Up Appointments Follow Up with ADAM RAMOS MD Where:[address] [facility] [place] [place] [address]- [phone] Additional Information: Follow-up as needed Follow-up as scheduled Follow Up with Go to emergency room if symptoms worsen Allergies fentaNYL (Moderate) nausea, vomiting HYDROcodone Bitartrate Unknown Haldol Unknown acetaminophen Unknown ibuprofen affects kidneys Medications Please ask your primary doctor or pharmacist before taking any other medication not listed, including over the counter drugs, herbal medications, vitamins and or supplements as they may interact with your home medications. What How Much When Instructions Last Dose Unchanged albuterol-ipratropium (albuterol-ipratropium 2.5 mg-0.5 mg/ 3 mL inhalation solution) 3 Milliliter by inhalation Every 6 hours Unchanged amLODIPine (amLODIPine 10 mg oral tablet) 1 tab(s) by mouth Once a day Unchanged ascorbic acid (ascorbic acid 500 mg oral capsule) 1 cap by mouth Once a day Unchanged aspirin ([place] Childrens Aspirin 81 mg oral tablet, (chewable)) 1 tab(s) by mouth Once a day with a meal Duration: 180 Days Unchanged bismuth subsalicylate (Pepto-Bismol Diarrhea 525 mg/ 10 mL oral suspension) 30 Milliliter by mouth Every hour as needed for Indigestion Unchanged budesonide-formoterol (Symbicort 80 mcg-4.5 mcg/ inh Inhaler) 2 puff(s) by inhalation Two (2) times a day Unchanged carvedilol (carvedilol 25 mg oral tablet) 2 tab(s) by mouth Two (2) times a day Unchanged chlorhexidine topical (Peridex 0.12% oral rinse liquid) 1 tablespoonful(s) by mouth Two (2) times a day Unchanged chlorthalidone (chlorthalidone 25 mg oral tablet) 1 tab(s) by mouth Every day Unchanged cholecalciferol (Vitamin D3 125 mcg (5000 intl units) oral capsule) 1 cap by mouth Once a day with food Unchanged cloNIDine (cloNIDine 0.3 mg oral tablet) 1 tab(s) by mouth Three (3) times a day Unchanged clopidogrel (Plavix 75 mg oral tablet) 1 tab(s) by mouth Once a day Duration: 180 Days Resume on Monday11/09/2024 Unchanged cyclobenzaprine (cyclobenzaprine 10 mg oral tablet) 1 tab(s) by mouth Four (4) times a day as needed for as needed for spasm Unchanged dapagliflozin (Farxiga 10 mg oral tablet) 1 tab(s) by mouth Once a day Unchanged dextromethorphan-guaifenesin (Rachael-Tussin DM 10 mg-100 mg/ 5 mL oral liquid) 10 Milliliter by mouth Every 4 hours as needed for Cold symptoms Unchanged docusate (docusate sodium 100 mg oral tablet) 1 tab(s) by mouth Once a day Unchanged doxazosin (doxazosin 8 mg oral tablet) 1 tab(s) by mouth Daily at bedtime Unchanged doxycycline (doxycycline hyclate 100 mg oral tablet) 1 tab(s) by mouth Two (2) times a day Unchanged dulaglutide (Trulicity Pen 1.5 mg/ 0.5 mL subcutaneous solution) 3 Milligram Subcutaneous Every Monday Unchanged DULoxetine (DULoxetine 30 mg oral delayed release capsule) 1 cap by mouth Once a day do not crush or chew Unchanged ergocalciferol (Vitamin D2 1.25 mg (50,000 intl units) oral capsule) 1 cap by mouth Every week Unchanged famotidine (famotidine 40 mg oral tablet) 4 tab(s) by mouth Two (2) times a day Unchanged finasteride (finasteride 5 mg oral tablet) 1 tab(s) by mouth Once a day Unchanged fluticasone nasal (fluticasone proprionate NASAL 50 mcg/ spray) 1 spray(s) each nostril Two (2) times a day Unchanged furosemide (Lasix 40 mg oral tablet) 1 tab(s) by mouth Every Monday / and Monday, , and Monday Unchanged furosemide (Lasix 40 mg oral tablet) by mouth Two (2) times a day Monday, Monday, and Monday Unchanged gabapentin (gabapentin 800 mg oral tablet) 1 tab(s) by mouth Three (3) times a day Unchanged gemfibrozil (gemfibrozil 600 mg oral tablet) 1 tab(s) by mouth Two (2) times a day Unchanged glucagon (glucagon 1 mg injection) 1 Each Subcutaneous As Directed as needed for for low blood sugar Unchanged hydrALAZINE (hydrALAZINE 100 mg oral tablet) 1 tab(s) by mouth Three (3) times a day Unchanged insulin aspart (Novolog) (NovoLOG 100 units/ mL injectable solution) See instructions before meals and hs Unchanged insulin regular (HumuLIN R KwikPEN (CONCENTRATED) insulin 500 units/ mL 3 mL) 110 unit(s) Subcutaneous (INT) Daily before lunch SEE LONGTERM MED LIST, ON LIST X3 NO INSTRUCTIONS ON TIME OF DOSE Unchanged insulin regular (HumuLIN R KwikPEN (CONCENTRATED) insulin 500 units/ mL 3 mL) 125 unit(s) Subcutaneous (INT) Daily before supper Unchanged insulin regular (HumuLIN R KwikPEN (CONCENTRATED) insulin 500 units/ mL 3 mL) 110 unit(s) Subcutaneous (INT) Before breakfast Unchanged isosorbide mononitrate (isosorbide mononitrate 60 mg oral tablet, extended release) 1.5 tab(s) by mouth Once a day (in the morning) Unchanged levETIRAcetam (Keppra 500 mg oral tablet) 1 tab(s) by mouth Two (2) times a day Unchanged loperamide (loperamide 2 mg oral capsule) 1 cap by mouth Every 4 hours as needed for for loose stool Unchanged losartan (losartan 25 mg oral tablet) 1 tab(s) by mouth Once a day Unchanged melatonin (melatonin 3 mg oral tablet) 1 tab(s) by mouth Daily at bedtime as needed for as needed for insomnia Unchanged menthol topical (Biofreeze 4% topical gel) 1 application Topical Four (4) times a day as needed for as needed for pain Unchanged mirtazapine (mirtazapine 7.5 mg oral tablet) 1 tab(s) by mouth Daily at bedtime Unchanged ondansetron (ondansetron 4 mg oral tablet) 1 tab(s) by mouth Every 8 hours as needed for Nausea/Vomiting Unchanged oxyCODONE (oxyCODONE 10 mg oral tablet ( IMMEDIATE release )) 1 tab(s) by mouth Four (4) times a day as needed for as needed for pain Unchanged polyethylene glycol 3350 (MiraLax oral powder for reconstitution) 17 gram(s) by mouth Once a day as needed for Constipation Unchanged potassium chloride (potassium chloride 20 mEq oral tablet, extended release) 2 tab(s) by mouth Two (2) times a day Unchanged rosuvastatin (rosuvastatin 40 mg oral tablet) 1 tab(s) by mouth Once a day Unchanged sertraline (sertraline 100 mg oral tablet) 1 tab(s) by mouth Once a day Unchanged tamsulosin (tamsulosin 0.4 mg oral capsule) 1 cap by mouth Two (2) times a day Unchanged traZODone (traZODone 50 mg oral tablet) 1 tab(s) by mouth Daily at bedtime Please take this list to your next doctor s visit. Bring all medications you take, including over the counter medications, herbals and other supplements with you to your doctor s visit. Patients and families are reminded to discard old lists and to update any records with all medication providers or retail pharmacies. Education Materials [place] Renal Biopsy Discharge Instructions Ultrasound Department [facility] Imaging Services [address] [place] [id number] Today, you had a biopsy of your Kidney. This procedure was done to help your doctor diagnose and treat the signs and symptoms you have been experiencing. These instructions should be followed after your procedure to reduce the chance of experiencing complications. Diet: Resume your normal diet as tolerated. Activity: Rest for the remainder of the day. You may resume your normal activity tomorrow. You may bathe/shower after 24 hours. Do not soak or submerge site (including swimming or hot tubs) until a scab forms. No heavy lifting, pushing, or straining. Dressing: Check the site for bleeding. Apply pressure to the site if bleeding excessively and call your physician. Change the band aid as needed; it can be removed after 24 hours. Keep the site dry at all times until a scab forms over the site. Pain Control: The puncture site may be sore for 1 to 2 days following the procedure. Cqcb-nig-ytfojwt pain medication should be used for pain or discomfort. Please check with the physician who ordered this procedure for you for their specific recommendations. If your pain is not relieved or becomes more severe, notify the physician who sent you for this procedure. If you were sedated for this procedure: Avoid alcoholic beverages for 24 hours after your procedure. Do not drive or operate heavy machinery for 24 hours after your procedure. Do not make any legal decisions for 24 hours after your procedure. Medication: Please resume medications as scheduled EXCEPT resume the Plavix on Monday11/09/24.. When to seek medical help: Severe back or abdomen pain. Bright red urine that gets worse or last more than 24 hours (urine may be pink tinged for 24-48 hours). Lightheadedness, dizziness, or fainting. Infection: fever greater than 101 degrees, chills, redness, warmth, swelling, bleeding, or pus from puncture site. If you experience any of these issues during the first 24 hours, please follow the instruction below: 8:00 am- 5:00 pm call [phone] After 24 hours, contact the physician who ordered this procedure for you. Obtaining test results: Please make an appointment with your doctor to obtain your test results. They are usually available within 4 to 7 business days. Do not assume everything is normal if you have not heard from your doctor or medical facility. It is important for you to follow up on all of your test results. Moderate Conscious Sedation, Adult, Care After These instructions provide you with information about caring for yourself after your procedure. Your health care provider may also give you more specific instructions. Your treatment has been planned according to current medical practices, but problems sometimes occur. Call your health care provider if you have any problems or questions after your procedure. What can I expect after the procedure? After your procedure, it is common: To feel sleepy for several hours. To feel clumsy and have poor balance for several hours. To have poor judgment for several hours. To vomit if you eat too soon. Follow these instructions at home: For at least 24 hours after the procedure: Do not: ? Participate in activities where you could fall or become injured. ? Drive. ? Use heavy machinery. ? Drink alcohol. ? Take sleeping pills or medicines that cause drowsiness. ? Make important decisions or sign legal documents. ? Take care of children on your own. Rest. Eating and drinking Follow the diet recommended by your health care provider. If you vomit: ? Drink water, juice, or soup when you can drink without vomiting. ? Make sure you have little or no nausea before eating solid foods. General instructions Have a responsible adult stay with you until you are awake and alert. Take lvhq-zhz-uehxpqd and prescription medicines only as told by your health care provider. If you smoke, do not smoke without supervision. Keep all follow-up visits as told by your health care provider. This is important. Contact a health care provider if: You keep feeling nauseous or you keep vomiting. You feel light-headed. You develop a rash. You have a fever. Get help right away if: You have trouble breathing. This information is not intended to replace advice given to you by your health care provider. Make sure you discuss any questions you have with your health care provider. Document Released: 12/25/2013 Document Revised: 02/16/2018 Document Reviewed: 06/25/2016 [employer] Patient Education 2020 [employer] Additional Information VACCINATE! IT SAVES LIVES! Members of the community who have not yet received the COVID-19 vaccine and would like to receive it can visit one of [facility] vaccine clinics. There are many vaccine clinic locations within the [facility]. For locations and available times, please visit [email or web address] It is important to note that some COVID mobile vaccine clinics are held outdoors and may be canceled in rainy or stormy conditions. To learn more about pediatric vaccinations (ages 5-11), we invite you to visit the [facility] webpage. [email or web address]-Frequently-[email or web address] ed-Questions.html To learn more about the COVID-19 vaccine, we invite you to visit the CDC website for a list of frequently asked questions.https://www.cdc.gov/coronav irus/2019-ncov/vaccines/faq.html [facility] Patient Portal Access Instructions: Stay connected with your healthcare team and access your personal medical information anytime with the [facility] Patient Portal. Please follow the directions below to create your [facility] account: 1.Access the email account you provided upon registration to the hospital/physician office.2.Look for an invitation email from [facility].3.Open the email and access the invitation link: Accept Invitation to [facility].4.Fill in the required bang to create your account. To access your account, visit [email or web address]. Click the blue button labeled Access Patient Portal and then log in with the username and password that you created in the steps above. You will be able to view your test results, lab results, a summary of your visits, upcoming appointments and more. There is also a convenient messaging option where you can send secure messages to your provider. In addition, you will have the ability to download any documents or summaries to your computer and/or send the information securely to a physician. Remember that your healthcare information is confidential, so carefully consider who you will allow to register on the [facility] Patient Portal for access to your information. You can also access the [facility] Patient Portal on the [employer] nurys. Simply click on Patient Portal and then log into your account. If you would like to receive a full copy of your medical records, please contact the [facility] Medical Records Department by calling [phone], Monday through Monday between 8 a.m. and 4:30 p.m. HOW TO SAFELY DISPOSE OF PRESCRIPTION MEDICATIONS Please use one of the following methods to safely dispose of your unused medications. 1.Use a drug disposal kit: the drug disposal pouch allows you to safely discard your old and unused drugs. Ask your nurse to give you one when you are discharged.2.Visit a local take-back location: Many local pharmacies and police departments have programs that collect old and unwanted prescription drugs. Call your local pharmacy or go to [email or web address] LaGoon/8Y4Oi7f to find one close to you.3.Make use of household items: Use cat litter or old coffee grounds to dispose medications if other options are not available. Mix your drugs with these household products, seal them in an airtight container and throw it into the garbage. Call [facility]: [phone] to be sure your drugs can be disposed of in this way. Some medicines may require a different approach.4.Never flush your medications down the toilet. IF YOU HAVE BEEN PRESCRIBED AN OPIOID FOR PAIN If you have been prescribed an opioid (such as hydrocodone, oxycodone or morphine), it is critical to understand the possible side effects and risks of opioid pain medications. Even when taken as directed, opioids can have several side effects including: Tolerance, meaning you might need to take more of a medication for the same pain relief. Nausea, vomiting and/or constipation. Sleepiness, dizziness, dry mouth, confusion, depression or itching. Physical dependence, meaning you have withdrawal symptoms when a medication is stopped, can develop within a few days. KNOW YOUR RESPONSIBILITIES It is important to know exactly how much and how often to take the opioid pain medications you are prescribed. Never take opioids in higher amounts or more often than prescribed. Do not combine opioids with alcohol or other drugs that cause drowsiness, such as benzodiazepines, also known as benzos, including diazepam and alprazolam, muscle relaxants or sleep aids. Never sell or share prescription opioids. This is illegal. Store opioids in a secure place and out of reach of others (including children, family, friends and visitors). The last page of this document has been signed and retained as a CHART COPY. Signatures Patient Education Materials Radiology- US Renal Biopsy 12/28/2013(CUSTOM) Moderate Conscious Sedation, Adult, Care After Medication Leaflets My discharge plan and instructions have been reviewed and explained to me and IRUSSELL JEFFREY R understand my current condition and have read and understand these discharge instructions. I have received a written copy of the plan/instructions. If I have questions, I am aware that I should contact my doctor. 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 Signature: __ Date/Time: Relationship to Patient: Witness Name/Signature: Date/Time: [facility] 11-07-2024 Evaluation + Plan note Extrac jacob from: Title:Preprocedure HP Author:VAMSI DON PA-C Date:11/07/24 Interventional Radiology Focused Preprocedure History/Physical Reason for Visit TYPE 2 DIABETIC WITH NEPHROPATHY History of Presenting Illness/Planned IR Procedure Image Guided Renal Core biopsy with possible intervention Allergies (5) ActiveSeverityReaction fentaNYLModeratenausea, vomiting acetaminophenUnknown HYDROcodone BitartrateUnknown HaldolUnknown ibuprofenaffects kidneys Home Medications (49) Active albuterol-ipratropium 2.5 mg-0.5 mg/3 mL inhalation solution 3 mL, Inhalation, q6hr amLODIPine 10 mg oral tablet 10 mg = 1 tab(s), Oral, qDay ascorbic acid 500 mg oral capsule 500 mg = 1 cap(s), Oral, qDay [place] Childrens Aspirin 81 mg oral tablet, (chewable) 81 mg = 1 tab(s), Oral, qDayM Biofreeze 4% topical gel 1 nurys, PRN, Topical, QID carvedilol 25 mg oral tablet 50 mg = 2 tab(s), Oral, BID chlorthalidone 25 mg oral tablet 25 mg = 1 tab(s), Oral, Daily cloNIDine 0.3 mg oral tablet 0.3 mg = 1 tab(s), Oral, TID cyclobenzaprine 10 mg oral tablet 10 mg = 1 tab(s), PRN, Oral, QID docusate sodium 100 mg oral tablet 100 mg = 1 tab(s), Oral, qDay doxazosin 8 mg oral tablet 8 mg = 1 tab(s), Oral, qHS doxycycline hyclate 100 mg oral tablet 100 mg = 1 tab(s), Oral, BID DULoxetine 30 mg oral delayed release capsule 30 mg = 1 cap(s), Oral, qDay famotidine 40 mg oral tablet 160 mg = 4 tab(s), Oral, BID Farxiga 10 mg oral tablet 10 mg = 1 tab(s), Oral, qDay finasteride 5 mg oral tablet 5 mg = 1 tab(s), Oral, qDay fluticasone proprionate NASAL 50 mcg/ spray 1 spray(s), Nostril, each, BID gabapentin 800 mg oral tablet 800 mg = 1 tab(s), Oral, TID gemfibrozil 600 mg oral tablet 600 mg = 1 tab(s), Oral, BID Rachael-Tussin DM 10 mg-100 mg/5 mL oral liquid 10 mL, PRN, Oral, q4h glucagon 1 mg injection 1 mg = 1 EA, PRN, Subcutaneous, AsDirected HumuLIN R KwikPEN (CONCENTRATED) insulin 500 units/mL 3 mL 110 unit(s), Subcutaneous-INT, acLunch HumuLIN R KwikPEN (CONCENTRATED) insulin 500 units/mL 3 mL 125 unit(s), Subcutaneous (INT), acSupper HumuLIN R KwikPEN (CONCENTRATED) insulin 500 units/mL 3 mL 110 unit(s), Subcutaneous (INT), acBreakfast hydrALAZINE 100 mg oral tablet 100 mg = 1 tab(s), Oral, TID isosorbide mononitrate 60 mg oral tablet, extended release 90 mg = 1.5 tab(s), Oral, qAM Keppra 500 mg oral tablet 500 mg = 1 tab(s), Oral, BID Lasix 40 mg oral tablet 40 mg = 1 tab(s), Oral, Tues/Thurs/Sat Lasix 40 mg oral tablet , Oral, BID loperamide 2 mg oral capsule 2 mg = 1 cap(s), PRN, Oral, q4h losartan 25 mg oral tablet 25 mg = 1 tab(s), Oral, qDay melatonin 3 mg oral tablet 3 mg = 1 tab(s), PRN, Oral, qHS MiraLax oral powder for reconstitution 17 gram(s), PRN, Oral, qDay mirtazapine 7.5 mg oral tablet 7.5 mg = 1 tab(s), Oral, qHS NovoLOG 100 units/mL injectable solution See Instructions ondansetron 4 mg oral tablet 4 mg = 1 tab(s), PRN, Oral, q8h oxyCODONE 10 mg oral tablet ( IMMEDIATE release ) 10 mg = 1 tab(s), PRN, Oral, QID Pepto-Bismol Diarrhea 525 mg/10 mL oral suspension 1,575 mg = 30 mL, PRN, Oral, q1h Peridex 0.12% oral rinse liquid 1 tablespoonful(s), Oral, BID Plavix 75 mg oral tablet 75 mg = 1 tab(s), Oral, qDay potassium chloride 20 mEq oral tablet, extended release 40 mEq = 2 tab(s), Oral, BID rosuvastatin 40 mg oral tablet 40 mg = 1 tab(s), Oral, qDay sertraline 100 mg oral tablet 100 mg = 1 tab(s), Oral, qDay Symbicort 80 mcg-4.5 mcg/inh Inhaler 2 puff(s), Inhalation, BID tamsulosin 0.4 mg oral capsule 0.4 mg = 1 cap(s), Oral, BID traZODone 50 mg oral tablet 50 mg = 1 tab(s), Oral, qHS Trulicity Pen 1.5 mg/0.5 mL subcutaneous solution 3 mg, Subcutaneous, Monday Vitamin D2 1.25 mg (50,000 intl units) oral capsule 50,000 International_Unit = 1 cap(s), Oral, qWeek Vitamin D3 125 mcg (5000 intl units) oral capsule 125 mcg = 1 cap(s), Oral, qDay Problem List/Past Medical History Hypertensive heart disease with HF (heart failure) ED Care Plan Anxiety 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 BPH with obstruction/lower urinary tract symptoms Benign prostatic hyperplasia CAD (coronary artery disease) CHF - Congestive heart failure COPD - Chronic obstructive pulmonary disease Cerebral infarction Chronic diastolic heart failure Chronic kidney disease Chronic pain Constipation Depression GERD - Gastro-esophageal reflux disease Hereditary and idiopathic neuropathy, unspecified History of transient ischemic attack and cerebral infarction Hyperkalemia Hyperlipidemia Hypertension Hypertriglyceridemia Hypokalemia Insomnia Localization-related (focal) (partial) idiopathic epilepsy and epileptic syndromes with seizures of localized onset, intractable, 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 Home/Environment Details: Living situation: Extended Care Facility. Professional Skilled Services or Special Community Resources None. Marital Status: Unmarried. Nutrition/Health Details: Type of diet: Diabetic. Caffeine intake amount: 6 pk a day. Appetite Excellent. Eating Difficulties None. Sexual Details: Self described orientation: Straight or heterosexual. Substance Abuse Details: Use: Never. Tobacco Details: Nicotine Use: 5-9 cigarettes (between 1/4 to 1/2 pack)/day in last 30 days. Type: Cigarettes. Tobacco use per day: 5. Number of years: 40. Physical Exam Vitals: [id number] (08:05) Systolic Blood Eetiyhst761 (08:05) Diastolic Blood Ibgotyoe06 (08:05) Pulse74 (08:05) OtR584 (08:05) Respiratory RateNo result General: Alert, cooperative. Heart: Regular Lungs: Clear The remainder of the physical exam is noncontributory. Labs Anticoagulation Labs No qualifying data available. No qualifying data available. Assessment/Treatment Plan Image Guided Renal Core biopsy with possible intervention Post Procedure Discharge Plan Patient to be discharged home. Shannan Don PA-C Interventional Radiology Pager [phone] IR Dept [id number] Available on [facility] 08-21-2025 Note* JERROD Magaña: SIGN, AUTHOR, PERFORM Event Display: IR Procedure Record Authored Date: [id number] IR Procedure Record Summary Primary Physician: SEVERINO SUAREZ MD Finalized Date/Time: 11/07/24 10:48:16 Pt. Name: CHITO WELLS D.O.B./Sex: 1965 Male Med Rec #: [id number] Physician: Financial #: [id number] Pt. Type: O Room/Bed: / Admit/Disch: 11/07/24 07:52:00 - Institution: Allergies identified in patient's electronic medical record at time of printing on 11/07/24 Entry 1 Entry 2 Entry 3 Substance HYDROcodone Bitartrate Haldol acetaminophen Reaction Type Allergy Allergy Allergy Last Modified By: Sharon Carr LPN, Kristin M LPN Stewart, Kristin M LPN 10/06/22 16:09:19 10/06/22 16:09:36 10/06/22 16:08:48 Entry 4 Entry 5 Substance fentaNYL ibuprofen Reaction Type Allergy Allergy Last Modified By: JERROD Khan Sherry A CMA 09/27/23 11:47:06 03/28/23 09:39:19 Case Attendance- IR Entry 1 Entry 2 Entry 3 Case Attendee SEVERINO SUAREZ MD, Tamiko Sampson Role Performed Primary Surgeon Procedure Nurse Applications Support Specialist Details Time In 11/07/24 10:23:00 11/07/24 10:00:00 11/07/24 10:00:00 Time Out 11/07/24 10:44:00 11/07/24 10:49:00 11/07/24 10:49:00 Procedure/Preference IR Biopsy Renal (SN) IR Biopsy Renal (SN) IR Biopsy Renal (SN) Card Last Modified By: JERROD Magaña RN Jennifer M Fichter, RN Jennifer M 11/07/24 10:48:13 11/07/24 10:48:13 11/07/24 10:48:13 Radiology Procedures- IR Entry 1 Procedure/Preference IR Biopsy Renal (SN) Actual Procedure IR BIOPSY RENAL Card Actual Procedure ct/ir renal biopsy Primary Procedure Yes Continued Primary Surgeon SEVERINO SUAREZ MD Anesthesia/Sedation IV Sedation, Local Type Additional Procedure Times Start 11/07/24 10:25:00 Stop 11/07/24 10:43:00 Specialty Service SN Radiology Procedure EBL 2 mL Last Modified By: JERROD Magaña 11/07/24 10:42:09 Radiology Procedure Details - IR Entry 1 Radiology Sedation Case Times Sedation Start Time 11/07/24 10:25:00 Sedation Stop Time 11/07/24 10:43:00 Sedation Total Time 18 minutes Radiology - Fluid/Drainage Fluid Amount mL: 0 Radiology Contrast Contrast Used? No Dose 0 Radiology Flouroscopy Fluoroscopy Used? Yes Fluoro Dose (mGy) 140.33 Fluoro Time 18.1 seconds Radiology Local Local Used? Yes Local Type: LIDOCAINE2% Local Dose 10cc Radiology Procedure Site Site/Location l flank Site Condition No complications Dressing Type Gauze sponge 4 X 4, Technologist Notes successful renal biopsy Tagaderm patient tolerated gel foam used thrombin used Last Modified By: JERROD Magaña 11/07/24 10:48:02 Cultures and Specimens- IR Entry 1 Kind Specimen Type Organ Date/Time 11/07/24 10:37:00 Source l flank kidney x 7 core Last Modified By: JERROD Magaña 11/07/24 10:42:34 General Case Data - IR Entry 1 Case Information Room AH IR CT Case Level IR Level 2 Wound Class None Specialty SN Radiology Procedure ASA Class None Diagnosis Preop Diagnosis renal biopsy Postop Same As Preop Yes Postop Diagnosis renal biopsy Last Modified By: JERROD Magaña 11/07/24 08:20:58 Medication Administration- IR Entry 1 Entry 2 Entry 3 Medication versed lidocaine 2% dilaudid Time Administered 11/07/24 10:25:00 11/07/24 10:32:00 11/07/24 10:01:00 Route of Admin IV Push Local IV Push Dose 1mg 10cc 1mg Volume 1 mL 10 mL .5 mL VORB * *Verbal Order Read Back (VORB) is required for NON- PHYSICIAN administration of medications. Administered by No Yes No Physician? Administered by: JERROD Magaña JAMES MD BUCHINO, JAMES MD Verbal Order Read SEVERINO SUAREZ MD Back from: Last Modified By: JERROD Magaña RN Jennifer M Fichter, RN Jennifer M 11/07/24 10:27:20 11/07/24 10:42:49 11/07/24 10:27:20 Entry 4 Medication dilaudid Time Administered 11/07/24 10:25:00 Route of Admin IV Push Dose 1mg Volume .5 mL VORB * *Verbal Order Read Back (VORB) is required for NON- PHYSICIAN administration of medications. Administered by No Physician? Administered by: SEVERINO SUAREZ MD Verbal Order Read SEVERINO SUAREZ MD Back from: Last Modified By: JERROD Magaña 11/07/24 10:27:20 Procedure Case Times- IR Entry 1 Patient In Procedure Patient In OR 11/07/24 10:00:00 Patient Out of OR 11/07/24 10:49:00 Procedure Start/Stop Procedure Start Time 11/07/24 10:25:00 Procedure Stop Time 11/07/24 10:43:00 Last Modified By: JERROD Magaña 11/07/24 10:48:08 Immediate Post OP Note - IR Entry 1 Immediate Post Yes Procedure Note displayed for Physician to review Closure Technique Closure Technique Other than Primary Last Modified By: JERROD Magaña 11/07/24 08:20:07 Immediate Post OP Note - IR Signed By: SEVERINO SUAREZ MD 11/07/24 10:43 Allergy Information- IR Entry 1 Allergies Reviewed? Yes Allergies Reviewed Medical Record With Last Modified By: JERROD Magaña 11/07/24 08:16:38 Radiology Protocols/Time Out- IR Entry 1 Preprocedure Clinician Verifies Correct patient ID When Clinically Confirmation of correct using name & date Indicated side(s) and site(s), or MRN, Accurate Correct diagnostic and procedure, complete radiology tests Informed Consent, H & P available, Required update immediately blood products, prior to procedure, if implants, devices applicable, Clinical and/or special team introduction equipment available, complete Preop antibiotics sent with patient/available in OR OR/Procedure Room/Bedside Time 11/07/24 10:24:00 Clinician Verifies Correct patient identity including EMR & records using name and date or medical record number, Accurate procedure consent form, Correct patient position, Necessary equipment is available, Anticipated non-routine events with surgical team (case duration, estimated blood loss, patient specific concerns)., Jarrell patient factors for recovery and management identified with surgical team. When Applicable Confirmation correct Team Members SEVERINO SUAREZ MD, side and site marked, Present for Time Out JERROD Magaña, Relevant images and Tamiko Pierce R results are properly labeled and appropriately displayed, Confirm/obtain preop antibiotic order., Alcohol based prep dry, Double verification of sterility indicators complete Instrument Sterility Team Members SEVERINO SUAREZ MD, Verifying Sterility Tamiko Pierce Procedure IR Biopsy Renal (SN) Last Modified By: JERROD Magaña 11/07/24 10:26:27 Skin Prep- IR Entry 1 Procedure IR Biopsy Renal (SN) Skin Prep Prep Area Flank Side Left By SEVERINO SUAREZ MD Prep Agents Chloraprep Hair Removal Method N/A Last Modified By: JERROD Magaña 11/07/24 08:19:37 Patient Positioning- IR Entry 1 Procedure IR Biopsy Renal (SN) Body Position OP Prone Feet Uncrossed? Yes Pressure Points Yes Checked Last Modified By: JERROD Magaña 11/07/24 08:19:48 Radiology Procedure Plan - IR Entry 1 Radiology - Nursing Care Plan Outcome Statement The patient Outcome Statement The patient receives demonstrates knowledge Cont. appropriate of the expected medication(s), safely responses to the administered during the operative/invasive perioperative/invasive procedure., The period., The patient is patient's value system, free from signs and lifestyle, ethnicity, symptoms of injury and culture are caused by extraneous considered, respected, objects (equipment, and incorporated in the instrumentation, perioperative plan of sponges, or sharps)., care., The patient is The patient is free free from signs and from signs and symptoms symptoms of infection., of electrical injury., The patient is free The patient is at or from signs and symptoms returning to of injury related to normothermia at the positioning., The conclusion of the patient is free from immediate signs and symptoms of postoperative/invasive chemical injury. period., The patient is free from signs and symptoms of laser injury. Radiology - Action Plan Outcomes Met? 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 JERROD Magaña Completing Procedure Plan Last Modified By: JERROD Magaña 11/07/24 08:20:27 Transfer Post Procedure- IR Entry 1 RAD - Transport to Recovery Patient Transported IV Via Stretcher With Post-op Destination Radiology Transported By JERROD Magaña, Tamiko Pierce Post Procedure Time Out Double Verification Yes Date/Time Verified 11/07/24 10:49:00 of ID band on patient Completed Verfied ID Band on JERROD Magaña by Last Modified By: JERROD Magaña 11/07/24 10:48:04 Case Comments <None> Finalized By: JERROD Magaña Document Signatures Signed By: JERROD Magaña 11/07/24 10:48 [facility] 08-21-2025 Note IR Procedure Record Summary Primary Physician: SEVERINO SUAREZ MD Finalized Date/Time: 11/07/24 10:48:16 Pt. Name: CHITO WELLS Franchesca MastersonB./Sex: 1965 Male Med Rec #: [id number] Physician: Financial #: [id number] Pt. Type: O Room/Bed: / Admit/Disch: 11/07/24 07:52:00 - Institution: Allergies identified in patient's electronic medical record at time of printing on 11/07/24 Entry 1 Entry 2 Entry 3 Substance HYDROcodone Bitartrate Haldol acetaminophen Reaction Type Allergy Allergy Allergy Last Modified By: Sharon Carr LPN, Kristin M LPN Stewart, Kristin M LPN 10/06/22 16:09:19 10/06/22 16:09:36 10/06/22 16:08:48 Entry 4 Entry 5 Substance fentaNYL ibuprofen Reaction Type Allergy Allergy Last Modified By: JERROD Khan Sherry A CMA 09/27/23 11:47:06 03/28/23 09:39:19 Case Attendance- IR Entry 1 Entry 2 Entry 3 Case Attendee SEVERINO SUAREZ MD, RN Jennifer M Vahila, Delaney R Role Performed Primary Surgeon Procedure Nurse Applications Support Specialist Details Time In 11/07/24 10:23:00 11/07/24 10:00:00 11/07/24 10:00:00 Time Out 11/07/24 10:44:00 11/07/24 10:49:00 11/07/24 10:49:00 Procedure/Preference IR Biopsy Renal (SN) IR Biopsy Renal (SN) IR Biopsy Renal (SN) Card Last Modified By: JERROD Magaña RN Jennifer M Fichter, RN Jennifer M 11/07/24 10:48:13 11/07/24 10:48:13 11/07/24 10:48:13 Radiology Procedures- IR Entry 1 Procedure/Preference IR Biopsy Renal (SN) Actual Procedure IR BIOPSY RENAL Card Actual Procedure ct/ir renal biopsy Primary Procedure Yes Continued Primary Surgeon SEVERINO SUAREZ MD Anesthesia/Sedation IV Sedation, Local Type Additional Procedure Times Start 11/07/24 10:25:00 Stop 11/07/24 10:43:00 Specialty Service SN Radiology Procedure EBL 2 mL Last Modified By: JERROD Magaña 11/07/24 10:42:09 Radiology Procedure Details - IR Entry 1 Radiology Sedation Case Times Sedation Start Time 11/07/24 10:25:00 Sedation Stop Time 11/07/24 10:43:00 Sedation Total Time 18 minutes Radiology - Fluid/Drainage Fluid Amount mL: 0 Radiology Contrast Contrast Used? No Dose 0 Radiology Flouroscopy Fluoroscopy Used? Yes Fluoro Dose (mGy) 140.33 Fluoro Time 18.1 seconds Radiology Local Local Used? Yes Local Type: LIDOCAINE2% Local Dose 10cc Radiology Procedure Site Site/Location l flank Site Condition No complications Dressing Type Gauze sponge 4 X 4, Technologist Notes successful renal biopsy Tagaderm patient tolerated gel foam used thrombin used Last Modified By: JERROD Magaña 11/07/24 10:48:02 Cultures and Specimens- IR Entry 1 Kind Specimen Type Organ Date/Time 11/07/24 10:37:00 Source l flank kidney x 7 core Last Modified By: JERROD Magaña 11/07/24 10:42:34 General Case Data - IR Entry 1 Case Information Room AH IR CT Case Level IR Level 2 Wound Class None Specialty SN Radiology Procedure ASA Class None Diagnosis Preop Diagnosis renal biopsy Postop Same As Preop Yes Postop Diagnosis renal biopsy Last Modified By: JERROD Magaña 11/07/24 08:20:58 Medication Administration- IR Entry 1 Entry 2 Entry 3 Medication versed lidocaine 2% dilaudid Time Administered 11/07/24 10:25:00 11/07/24 10:32:00 11/07/24 10:01:00 Route of Admin IV Push Local IV Push Dose 1mg 10cc 1mg Volume 1 mL 10 mL .5 mL VORB * *Verbal Order Read Back (VORB) is required for NON- PHYSICIAN administration of medications. Administered by No Yes No Physician? Administered by: JERROD Magaña JAMES MD BUCHINO, JAMES MD Verbal Order Read SEVERINO SUAREZ MD Back from: Last Modified By: JERROD Magaña RN Jennifer M Fichter, RN Jennifer M 11/07/24 10:27:20 11/07/24 10:42:49 11/07/24 10:27:20 Entry 4 Medication dilaudid Time Administered 11/07/24 10:25:00 Route of Admin IV Push Dose 1mg Volume .5 mL VORB * *Verbal Order Read Back (VORB) is required for NON- PHYSICIAN administration of medications. Administered by No Physician? Administered by: SEVERINO SUAREZ MD Verbal Order Read SEVERINO SUAREZ MD Back from: Last Modified By: JERROD Magaña 11/07/24 10:27:20 Procedure Case Times- IR Entry 1 Patient In Procedure Patient In OR 11/07/24 10:00:00 Patient Out of OR 11/07/24 10:49:00 Procedure Start/Stop Procedure Start Time 11/07/24 10:25:00 Procedure Stop Time 11/07/24 10:43:00 Last Modified By: JERROD Magaña 11/07/24 10:48:08 Immediate Post OP Note - IR Entry 1 Immediate Post Yes Procedure Note displayed for Physician to review Closure Technique Closure Technique Other than Primary Last Modified By: JERROD Magaña 11/07/24 08:20:07 Immediate Post OP Note - IR Signed By: SEVERINO SAUREZ MD 11/07/24 10:43 Allergy Information- IR Entry 1 Allergies Reviewed? Yes Allergies Reviewed Medical Record With Last Modified By: JERROD Magaña 11/07/24 08:16:38 Radiology Protocols/Time Out- IR Entry 1 Preprocedure Clinician Verifies Correct patient ID When Clinically Confirmation of correct using name & date Indicated side(s) and site(s), or MRN, Accurate Correct diagnostic and procedure, complete radiology tests Informed Consent, H & P available, Required update immediately blood products, prior to procedure, if implants, devices applicable, Clinical and/or special team introduction equipment available, complete Preop antibiotics sent with patient/available in OR OR/Procedure Room/Bedside Time 11/07/24 10:24:00 Clinician Verifies Correct patient identity including EMR & records using name and date or medical record number, Accurate procedure consent form, Correct patient position, Necessary equipment is available, Anticipated non-routine events with surgical team (case duration, estimated blood loss, patient specific concerns)., Jarrell patient factors for recovery and management identified with surgical team. When Applicable Confirmation correct Team Members SEVERINO SUAREZ MD, side and site marked, Present for Time Out JERROD Magaña, Relevant images and Tamiko Pierce results are properly labeled and appropriately displayed, Confirm/obtain preop antibiotic order., Alcohol based prep dry, Double verification of sterility indicators complete Instrument Sterility Team Members SEVERINO SUAREZ MD, Verifying Sterility Tamiko Pierce Procedure IR Biopsy Renal (SN) Last Modified By: JERROD Magaña 11/07/24 10:26:27 Skin Prep- IR Entry 1 Procedure IR Biopsy Renal (SN) Skin Prep Prep Area Flank Side Left By SEVERINO SUAREZ MD Prep Agents Chloraprep Hair Removal Method N/A Last Modified By: JERROD Magaña 11/07/24 08:19:37 Patient Positioning- IR Entry 1 Procedure IR Biopsy Renal (SN) Body Position OP Prone Feet Uncrossed? Yes Pressure Points Yes Checked Last Modified By: JERROD Magaña 11/07/24 08:19:48 Radiology Procedure Plan - IR Entry 1 Radiology - Nursing Care Plan Outcome Statement The patient Outcome Statement The patient receives demonstrates knowledge Cont. appropriate of the expected medication(s), safely responses to the administered during the operative/invasive perioperative/invasive procedure., The period., The patient is patient's value system, free from signs and lifestyle, ethnicity, symptoms of injury and culture are caused by extraneous considered, respected, objects (equipment, and incorporated in the instrumentation, perioperative plan of sponges, or sharps)., care., The patient is The patient is free free from signs and from signs and symptoms symptoms of infection., of electrical injury., The patient is free The patient is at or from signs and symptoms returning to of injury related to normothermia at the positioning., The conclusion of the patient is free from immediate signs and symptoms of postoperative/invasive chemical injury. period., The patient is free from signs and symptoms of laser injury. Radiology - Action Plan Outcomes Met? 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 JERROD Magaña Completing Procedure Plan Last Modified By: JERROD Magaña 11/07/24 08:20:27 Transfer Post Procedure- IR Entry 1 RAD - Transport to Recovery Patient Transported IV Via Stretcher With Post-op Destination Radiology Transported By JERROD Magaña Vahila, Delaney R Post Procedure Time Out Double Verification Yes Date/Time Verified 11/07/24 10:49:00 of ID band on patient Completed Verfied ID Band on JERROD Magaña by Last Modified By: JERROD Magaña 11/07/24 10:48:04 Case Comments Finalized By: JERROD Magaña Document Signatures Signed By: JERROD Magaña 11/07/24 10:48 [id number] Interventional Radiology Focused Preprocedure History/Physical Reason for Visit TYPE 2 DIABETIC WITH NEPHROPATHY History of Presenting Illness/Planned IR Procedure Image Guided Renal Core biopsy with possible intervention Allergies (5) ActiveSeverityReaction fentaNYLModeratenausea, vomiting acetaminophenUnknown HYDROcodone BitartrateUnknown HaldolUnknown ibuprofenaffects kidneys Home Medications (49) Active albuterol-ipratropium 2.5 mg-0.5 mg/3 mL inhalation solution 3 mL, Inhalation, q6hr amLODIPine 10 mg oral tablet 10 mg = 1 tab(s), Oral, qDay ascorbic acid 500 mg oral capsule 500 mg = 1 cap(s), Oral, qDay [place] [facility] Aspirin 81 mg oral tablet, (chewable) 81 mg = 1 tab(s), Oral, qDayM Biofreeze 4% topical gel 1 nurys, PRN, Topical, QID carvedilol 25 mg oral tablet 50 mg = 2 tab(s), Oral, BID chlorthalidone 25 mg oral tablet 25 mg = 1 tab(s), Oral, Daily cloNIDine 0.3 mg oral tablet 0.3 mg = 1 tab(s), Oral, TID cyclobenzaprine 10 mg oral tablet 10 mg = 1 tab(s), PRN, Oral, QID docusate sodium 100 mg oral tablet 100 mg = 1 tab(s), Oral, qDay doxazosin 8 mg oral tablet 8 mg = 1 tab(s), Oral, qHS doxycycline hyclate 100 mg oral tablet 100 mg = 1 tab(s), Oral, BID DULoxetine 30 mg oral delayed release capsule 30 mg = 1 cap(s), Oral, qDay famotidine 40 mg oral tablet 160 mg = 4 tab(s), Oral, BID Farxiga 10 mg oral tablet 10 mg = 1 tab(s), Oral, qDay finasteride 5 mg oral tablet 5 mg = 1 tab(s), Oral, qDay fluticasone proprionate NASAL 50 mcg/ spray 1 spray(s), Nostril, each, BID gabapentin 800 mg oral tablet 800 mg = 1 tab(s), Oral, TID gemfibrozil 600 mg oral tablet 600 mg = 1 tab(s), Oral, BID Rachael-Tussin DM 10 mg-100 mg/5 mL oral liquid 10 mL, PRN, Oral, q4h glucagon 1 mg injection 1 mg = 1 EA, PRN, Subcutaneous, AsDirected HumuLIN R KwikPEN (CONCENTRATED) insulin 500 units/mL 3 mL 110 unit(s), Subcutaneous-INT, acLunch HumuLIN R KwikPEN (CONCENTRATED) insulin 500 units/mL 3 mL 125 unit(s), Subcutaneous (INT), acSupper HumuLIN R KwikPEN (CONCENTRATED) insulin 500 units/mL 3 mL 110 unit(s), Subcutaneous (INT), acBreakfast hydrALAZINE 100 mg oral tablet 100 mg = 1 tab(s), Oral, TID isosorbide mononitrate 60 mg oral tablet, extended release 90 mg = 1.5 tab(s), Oral, qAM Keppra 500 mg oral tablet 500 mg = 1 tab(s), Oral, BID Lasix 40 mg oral tablet 40 mg = 1 tab(s), Oral, Tues/Thurs/Sat Lasix 40 mg oral tablet , Oral, BID loperamide 2 mg oral capsule 2 mg = 1 cap(s), PRN, Oral, q4h losartan 25 mg oral tablet 25 mg = 1 tab(s), Oral, qDay melatonin 3 mg oral tablet 3 mg = 1 tab(s), PRN, Oral, qHS MiraLax oral powder for reconstitution 17 gram(s), PRN, Oral, qDay mirtazapine 7.5 mg oral tablet 7.5 mg = 1 tab(s), Oral, qHS NovoLOG 100 units/mL injectable solution See Instructions ondansetron 4 mg oral tablet 4 mg = 1 tab(s), PRN, Oral, q8h oxyCODONE 10 mg oral tablet ( IMMEDIATE release ) 10 mg = 1 tab(s), PRN, Oral, QID Pepto-Bismol Diarrhea 525 mg/10 mL oral suspension 1,575 mg = 30 mL, PRN, Oral, q1h Peridex 0.12% oral rinse liquid 1 tablespoonful(s), Oral, BID Plavix 75 mg oral tablet 75 mg = 1 tab(s), Oral, qDay potassium chloride 20 mEq oral tablet, extended release 40 mEq = 2 tab(s), Oral, BID rosuvastatin 40 mg oral tablet 40 mg = 1 tab(s), Oral, qDay sertraline 100 mg oral tablet 100 mg = 1 tab(s), Oral, qDay Symbicort 80 mcg-4.5 mcg/inh Inhaler 2 puff(s), Inhalation, BID tamsulosin 0.4 mg oral capsule 0.4 mg = 1 cap(s), Oral, BID traZODone 50 mg oral tablet 50 mg = 1 tab(s), Oral, qHS Trulicity Pen 1.5 mg/0.5 mL subcutaneous solution 3 mg, Subcutaneous, Monday Vitamin D2 1.25 mg (50,000 intl units) oral capsule 50,000 International_Unit = 1 cap(s), Oral, qWeek Vitamin D3 125 mcg (5000 intl units) oral capsule 125 mcg = 1 cap(s), Oral, qDay Problem List/Past Medical History Hypertensive heart disease with HF (heart failure) ED Care Plan Anxiety 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 BPH with obstruction/lower urinary tract symptoms Benign prostatic hyperplasia CAD (coronary artery disease) CHF - Congestive heart failure COPD - Chronic obstructive pulmonary disease Cerebral infarction Chronic diastolic heart failure Chronic kidney disease Chronic pain Constipation Depression GERD - Gastro-esophageal reflux disease Hereditary and idiopathic neuropathy, unspecified History of transient ischemic attack and cerebral infarction Hyperkalemia Hyperlipidemia Hypertension Hypertriglyceridemia Hypokalemia Insomnia 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, intractable, 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 Home/Environment Details: Living situation: Extended Care Facility. Professional Skilled Services or Special Community Resources None. Marital Status: Unmarried. Nutrition/Health Details: Type of diet: Diabetic. Caffeine intake amount: 6 pk a day. Appetite Excellent. Eating Difficulties None. Sexual Details: Self described orientation: Straight or heterosexual. Substance Abuse Details: Use: Never. Tobacco Details: Nicotine Use: 5-9 cigarettes (between 1/4 to 1/2 pack)/day in last 30 days. Type: Cigarettes. Tobacco use per day: 5. Number of years: 40. Physical Exam Vitals: [id number] (08:05) Systolic Blood Cfiahxqq275 (08:05) Diastolic Blood Cugcbsue71 (08:05) Pulse74 (08:05) OqR086 (08:05) Respiratory RateNo result General: Alert, cooperative. Heart: Regular Lungs: Clear The remainder of the physical exam is noncontributory. Labs Anticoagulation Labs No qualifying data available. No qualifying data available. Assessment/Treatment Plan Image Guided Renal Core biopsy with possible intervention Post Procedure Discharge Plan Patient to be discharged home. Shannan Don PA-C Interventional Radiology Pager [phone] IR Dept [id number] Available on [facility] MET-TECHt Digitally Signed by SHANNAN DON PA-C on 11/07/2024 09:19 AM Digitally Signed by SEVERINO SUAREZ MD on 11/07/2024 11:44 AM [id number] Interventional radiology Progress note IR scheduling talked to Anaya Banks LPN at [facility] [phone]. Anaya verified obtaining clearance for patient to hold Clopidogrel, 5 day hold last dose 11/01/24, with Nurse Practitioner Elena Brito. Hope from [facility] will fax to IR order to hold. Digitally Signed by Marlee Garner on 10/25/2024 09:29 AM [id number] Interventional radiology Progress note CHITO is scheduled 11/07/24 for an IR RENAL CORE BIOPSY @ 0900 Pt to arrive [facility] level Radiology at 0800 Patient is to be NPO after midnight except for clear liquids 2 hours prior to procedure. They will need to have a form setter/driver. It is the responsibility of the ordering office to obtain clearance for patient to stop any medications : CLOPIDOGREL- 5 DAY HOLD . The patient will also need to have someone stay with them overnight. GUMARO ELDER @ [facility] has been notified of above information, will arrange ride and get clearanceto hold Clopidogrel. per Gumaro ELDER , Chito can sign his own consent CLEAR FLUIDS ALLOWED UP TO 2 HOURS BEFORE PROCEDURE -Water -Coffee -black only - Gatorade -Lemonade or Blaine-Aid -Soda or Tea (no cream or sugar) -Gelatin without fruit -Popsicles (without cream or fruit) -Juice without pulp (apple, white grape) Nivia Sutton Digitally Signed by Rony Jernigan on 10/18/2024 04:33 PM [id number] Evaluation note* Diagnosis Onset Date Resolution Status Admit Date Nicotine dependence, cigaret aaron, uncomplicated chronic October 17, 2024 10:56am Obesity chronic October 17 10:56am SOB (shortness of breath) chronic October 17, 2024 10:56am [facility] Work Phone: 1(746) 115-720807-31-2025 Evaluation note* Diagnosis Onset Date Resolution Status Admit Date Nicotine dependence, cigarettes, uncomplicated chronic September 192024 10:56am Obesity chronic October 17 10:56am SOB (shortness of breath) chronic October 17, 2024 10:56am Nicotine dependence, cigarettes, uncomplicated chronic 2024 9:21am Obesity chronic November 9:21am SOB (shortness of breath) chronic November 27, 2024 9:21am Right middle lobe pulmonary infiltrate suspected November 27, 2024 9:21am [facility] Work Phone: 1(254) 901-941206-30-2025 Note. MICRO - Microbiology PROCEDURE: Blood Culture (bacterial) [O1 *1] SOURCE: Blood BODY SITE: COLLECTED DATE/TIME: 09/10/2024 23:15 EDT RECEIVED DATE/TIME: 09/11/2024 14:49 EDT START DATE/TIME: 09/11/2024 14:49 EDT FREE TEXT SOURCE: FINAL REPORTS Final Report [] Verified Date/Time/Personnel: 09/16/2024 14:59 EDT Blood Culture: No Growth at 5 days. PRELIMINARY REPORTS Preliminary Report [] Verified Date/Time/Personnel: 09/11/2024 15:59 EDT Culture has been received in lab and is no growth to date. Routine cultures are held for 5 days. Order Comments O1: Blood Culture (bacterial) [id number] Performing Locations *1: This test was performed at: [address], [address] [place] [address] [id number] Note. MICRO - Microbiology PROCEDURE: Blood Culture (bacterial) [O1 *1] SOURCE: Blood BODY SITE: COLLECTED DATE/TIME: 09/10/2024 22:00 EDT RECEIVED DATE/TIME: 09/11/2024 14:49 EDT START DATE/TIME: 09/11/2024 14:49 EDT FREE TEXT SOURCE: FINAL REPORTS Final Report [] Verified Date/Time/Personnel: 09/16/2024 14:59 EDT Blood Culture: No Growth at 5 days. PRELIMINARY REPORTS Preliminary Report [] Verified Date/Time/Personnel: 09/11/2024 15:59 EDT Culture has been received in lab and is no growth to date. Routine cultures are held for 5 days. Order Comments O1: Blood Culture (bacterial) [id number] Performing Locations *1: This test was performed at: [address], [address] [place] [address] [id number] Radiology Diagnostic study note [facility] Imaging Services [address] [place] [address] Abdomen/Pelvis WITH Contrast MR#: [id number] Acct: [id number] Name: CHITO WELLS Rep #: [id number] : 1965 M 58 From: Gissel Deal MD PCP: Dr. Stacey Coulter MD Status: REG CLI Study:Abdomen/Pelvis WITH Contrast Date of Ex am: 06/13/24 Exam# [id number] Ordering Dr: Franchesca Sanchez DO PROCEDURE: ABDOMEN/PELVIS WITH CONTRAST 06/13/2024 REASON FOR EXAM: 58-year-old male, abdominal pain, history of non-Hodgkin's lymphoma, history of osteomyelitis in the spine status post hardware removal. TECHNIQUE: Abdomen and pelvis CT with intravenous contrast. Coronal and Sagittal reconstruction series were provided. PATIENT PREPARATION: Per protocol ORAL CONTRAST TYPE: None. CONTRAST: Isovue-300 VOLUME: 100mL One or more dose reduction techniques were used (e.g., Automated exposure control, adjustment of the mA and/or kV according to patient size, use of iterative reconstruction technique. RADIATION DOSE SUMMARY: CTDlvol: 50 mGy DLP: 1200 mGycm COMPARISON: CT abdomen pelvis 07/28/2023. FINDINGS: Lung bases: The lung bases are clear. The heart is normal in size with coronaryartery calcifications. Liver: The liver is normal in size with diffuse hepatic steatosis. The main portal veins are patent. No biliary ductal dilation. Gallbladder: Prior cholecystectomy. Spleen: Unremarkable. Pancreas: Diffuse fatty atrophy. Adrenals: Unremarkable adrenal glands. Kidneys: Renal cysts and additional hypodensities, likely cysts. No hydronephrosis or nephrolithiasis. Bladder: The urinary bladder is distended and unremarkable. Reproductive Organs: Unremarkable. Bowel: The bowel loops are normal in caliber. No ascites or pneumoperitoneum. Normal appendix. Lymph nodes: No suspicious lymph node enlargement. Vasculature: Mild diffuse atherosclerotic calcifications are noted. Bones: Stable findings of prior lumbar spinal hardware placement and removal. Severe thoracolumbar spondylosis. CT/Abdomen/Pelvis WITH Contrast IMPRESSION: 1. No acute abdominopelvic finding. 2. Hepatic steatosis. Reading Location: [facility] CC: Dr. Stacey Coulter MD; Wild Friend, DO ~ [employer] Detailer: Signed [facility]02-27-2025 Evaluation note* Diagnosis Onset Date Resolution Status Admit Date Martinez esophagus chronic Februar y 2024 9:12am Dysphagia chronic May 16, 2024 9:12am Nausea & vomiting chronic Februar y 2024 9:12am [facility] Work Phone: 1(662) 930-921008-31-2024 Note. MICRO - Microbiology PROCEDURE: Blood Culture (bacterial) [*1] SOURCE: Blood BODY SITE: COLLECTED DATE/TIME: 11/12/2023 22:01 EDT RECEIVED DATE/TIME: 11/13/2023 15:27 EDT START DATE/TIME: 11/13/2023 15:27 EDT FREE TEXT SOURCE: FINAL REPORTS Final Report [] Verified Date/Time/Personnel: 11/18/2023 15:59 EDT Blood Culture: No Growth at 5 days. PRELIMINARY REPORTS Preliminary Report [] Verified Date/Time/Personnel: 11/13/2023 15:59 EDT Culture has been received in lab and is no growth to date. Routine cultures are held for 5 days. Performing Locations *1: This test was performed at: [address], [facility] , [facility] ([place])11-18-2023 Note. MICRO - Microbiology PROCEDURE: Blood Culture (bacterial) [*1] SOURCE: Blood BODY SITE: COLLECTED DATE/TIME: 11/12/2023 21:45 EDT RECEIVED DATE/TIME: 11/13/2023 15:24 EDT START DATE/TIME: 11/13/2023 15:27 EDT FREE TEXT SOURCE: FINAL REPORTS Final Report [] Verified Date/Time/Personnel: 11/18/2023 15:59 EDT Blood Culture: No Growth at 5 days. PRELIMINARY REPORTS Preliminary Report [] Verified Date/Time/Personnel: 11/13/2023 15:59 EDT Culture has been received in lab and is no growth to date. Routine cultures are held for 5 days. Performing Locations *1: This test was performed at: [facility], [address] [place] [address], [id number]- , [facility] ([place])09-29-2023 Hospital Discharge instructions Patient Education 09/29/2023 18:28:10 Angina, Rawv-ow-Ubve Angina Angina is very bad discomfort or pain in the chest, neck, arm, jaw, or back. The discomfort is caused by a lack of blood in the middle layer of the heart wall (myocardium). What are the causes? This condition is caused by a buildup of fat and cholesterol (plaque) in your arteries (atherosclerosis). This buildup narrows the arteries and makes it hard for blood to flow. What increases the risk? You are more likely to develop this condition if: You have high levels of cholesterol in your blood. You have high blood pressure (hypertension). You have diabetes. You have a family history of heart disease. You are not active, or you do not exercise enough. You feel sad (depressed). You have been treated with high energy rays (radiation) on the left side of your chest. Other risk factors are: Using tobacco. Being very overweight (obese). Eating a diet high in unhealthy fats (saturated fats). Having stress, or being exposed to things that cause stress. Using drugs, such as cocaine. Women have a greater risk for angina if: They are older than 55. They have stopped having their period (are in postmenopause). What are the signs or symptoms? Common symptoms of this condition in both men and women may include: Chest pain, which may: ?Feel like a crushing or squeezing in the chest. ?Feel like a tightness, pressure, fullness, or heaviness in the chest. ?Last for more than a few minutes at a time. ?Stop and come back (recur) after a few minutes. Pain in the neck, arm, jaw, or back. Heartburn or upset stomach (indigestion) for no reason. Being short of breath. Feeling sick to your stomach (nauseous). Sudden cold sweats. Women and people with diabetes may have other symptoms that are not usual, such as feeling: Tired (fatigue). Worried or nervous (anxious) for no reason. Weak for no reason. Dizzy or passing out (fainting). How is this treated? This condition may be treated with: Medicines. These are given to: ?Prevent blood clots. ?Prevent heart attack. ?Relax blood vessels and improve blood flow to the heart (nitrates). ?Reduce blood pressure. ?Improve the pumping action of the heart. ?Reduce fat and cholesterol in the blood. A procedure to widen a narrowed or blocked artery in the heart (angioplasty). Surgery to allow blood to go around a blocked artery (coronary artery bypass surgery). Follow these instructions at home: Medicines Take aher-rss-dbzqmlg and prescription medicines only as told by your doctor. Do not take these medicines unless your doctor says that you can: ?NSAIDs. These include: ?Ibuprofen. ?Naproxen. ?Vitamin supplements that have vitamin A, vitamin E, or both. ?Hormone therapy that contains estrogen with or without progestin. Eating and drinking Eat a heart-healthy diet that includes: ?Lots of fresh fruits and vegetables. ?Whole grains. ?Low-fat (lean) protein. ?Low-fat dairy products. Follow instructions from your doctor about what you cannot eat or drink. Activity Follow an exercise program that your doctor tells you. Talk with your doctor about joining a program to help improve the health of your heart (cardiac rehab). When you feel tired, take a break. Plan breaks if you know you are going to feel tired. Lifestyle Do not use any products that contain nicotine or tobacco. This includes cigarettes, e-cigarettes, and chewing tobacco. If you need help quitting, ask your doctor. If your doctor says you can drink alcohol: ?Limit how much you use to: ?0 1 drink a day for women who are not . ? 0 2 drinks a day for men. ?Be aware of how much alcohol is in your drink. In the [place] one drink equals: ?One 12 oz bottle of beer (355 mL). ?One 5 oz glass of wine (148 mL). ?One 1 oz glass of hard liquor (44 mL). General instructions Stay at a healthy weight. If your doctor tells you to do so, work with him or her to lose weight. Learn to deal with stress. If you need help, ask your doctor. Keep your vaccines up to date. Get a flu shot every year. Talk with your doctor if you feel sad. Take a screening test to see if you are at risk for depression. Work with your doctor to manage any other health problems that you have. These may include diabetesor high blood pressure. Keep all follow-up visits as told by your doctor. This is important. Get help right away if: You have pain in your chest, neck, arm, jaw, or back, and the pain: ?Lasts more than a few minutes. ?Comes back. ?Does not get better after you take medicine under your tongue (sublingual nitroglycerin). ?Keeps getting worse. ?Comes more often. You have any of these problems for no reason: ?Sweating a lot. ?Heartburn or upset stomach. ?Shortness of breath. ?Trouble breathing. ?Feeling sick to your stomach. ?Throwing up (vomiting). ?Feeling more tired than normal. ?Feeling nervous or worrying more than normal. ?Weakness. You are suddenly dizzy or light-headed. You pass out. These symptoms may be an emergency. Do not wait to see if the symptoms will go away. Get medical help right away. Call your local emergency services (911 in the [place] Do not drive yourself to the hospital. Summary Angina is very bad discomfort or pain in the chest, neck, arm, neck, or back. Symptoms include chest pain, heartburn or upset stomach for no reason, and shortness of breath. Women or people with diabetes may have symptoms that are not usual, such as feeling nervous or worried for no reason, weak for no reason, or tired. Take all medicines only as told by your doctor. You should eat a heart-healthy diet and follow an exercise program. This information is not intended to replace advice given to you by your health care provider. Make sure you discuss any questions you have with your health care provider. Document Released: 08/22/2008 Document Revised: 10/22/2018 Document Reviewed: 10/22/2018 [employer] Patient Education 2020 [employer] Follow Up Care 09/12/2023 08:46:44 With:Discharge to TIFFANY Gutierrez Address:Unknown When:1-2 days With:[facility] Address: [address] [place] [address]- When:3-7 days Comments:back wound With:[facility] Address: [address] [place] [address]- When: Unknown Comments:The cardiac rehab department will contact you in 1-2 weeks to schedule phase 2. Information was given about cardiac rehab. If you have questions please call [phone]. With:STACEY COULTER MD, Internal Medicine Address: [address] [address]- When:1-2 days With:SHANTAL INTERIANO MD Address: [address] [place] [address]- [phone] When:10/11/2023 14:30:00 [facility] 07-12-2024 Note Discharge Instructions Thank you for allowing [facility] to assist you with your healthcare needs. The following is importantdischarge information regarding your hospital visit. Your Care Team STACEY COULTER MD What to do next Scheduled Follow-Up Appointments Appointment Type When Where Contact Information StatusCV OV 10/11/2023 02:30 PM EDT [facility] Confirmed Follow Up Appointments Follow Up with Discharge to TIFFANY Gutierrez When:Within 1-2 days Follow Up with [facility] When:Within 3-7 days Where:[address] [place] [address]- Additional Information: back wound Follow Up with [facility] Where:[address] [place] [address]- Additional Information: The cardiac rehab department will contact you in 1-2 weeks to schedule phase 2. Information was given about cardiac rehab. If you have questions please call [phone]. Follow Up with STACEY COULTER MD, Internal Medicine When:Within 1-2 days Where:[address] [address]- Follow Up with SHANTAL INTERIANO MD When:10/11/2023 02:30 PM EDT Where:[address] [place] [address]- [phone] The Following Activity and Diet Have Been Ordered for You Discharge Activity - Ordered -- Lifting Restricted less than 10 pounds, x 2 weeks, 09/29/23 14:41:00 EDT Transfer of Care Activity - Ordered -- Activity As Tolerated, 09/29/23 15:43:00 EDT Discharge Diet - Ordered -- Type of Diet: Cardiac, 09/29/23 14:41:00 EDT Transfer of Care Diet - Ordered -- Type of Diet: Regular Diet, 09/29/23 15:43:00 EDT The Following Equipment Has Been Ordered for You No qualifying data available. 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 Other Therapies No qualifying data available. Post Acute Orders Transfer of Care Admission Level of Care - Ordered -- Level of Care [facility], 09/29/23 15:44:48 EDT Transfer of Care Code Status - Ordered -- Full Code, Constant Order Transfer of Care Orders Electronically Signed By - Ordered -- 09/29/23 15:43:00 EDT, TOÑITO VELA MD Transfer of Care Prognosis - Ordered -- Fair, Patient Aware: Yes Transfer of Care Rehab Potential - Ordered -- Rehab potential fair, 09/29/23 15:44:07 EDT Someone Will Contact You Regarding These Home Health Referrals No home referrals have been ordered for you. No one will call you. Allergies fentaNYL (Moderate) nausea, vomiting HYDROcodone Bitartrate Unknown Haldol Unknown acetaminophen Unknown ibuprofen affects kidneys Medications Please ask your primary doctor or pharmacist before taking any other medication not listed, including over the counter drugs, herbal medications, vitamins and or supplements as they may interact withyour home medications. What How Much When Instructions Last Dose New aspirin ([place] Childrens Aspirin 81 mg oral tablet, (chewable)) 1 tab(s) by mouth Once a day with a meal Duration: 180 Days Refills: 2 Pickup at [facility] New clopidogrel (Plavix 75 mg oral tablet) 1 tab(s) by mouth Once a day Duration: 180 Days Refills: 2 Pickup at [facility] New predniSONE (predniSONE 10 mg oral tablet) 4 tab(s) by mouth Once a day Duration: 5 Days Take with food Pickup at [facility] Changed pantoprazole (pantoprazole 40 mg oral enteric coated tablet) 1 tab(s) by mouth Once a day (in the morning) Changed pantoprazole (Protonix 40 mg oral enteric coated tablet) 1 tab(s) by mouth Once a day Pickup at [facility] Unchanged albuterol-ipratropium (albuterol-ipratropium 2.5 mg-0.5 mg/ 3 mL inhalation solution) 3 Milliliter by inhalation Every 6 hours Unchanged amLODIPine (amLODIPine 10 mg oral tablet) 1 tab(s) by mouth Once a day Unchanged ascorbic acid (ascorbic acid 500 mg oral capsule) 1 cap by mouth Once a day Unchanged bismuth subsalicylate (Pepto-Bismol Diarrhea 525 mg/ 10 mL oral suspension) 30 Milliliter by mouth Every hour as needed for Indigestion Unchanged carvedilol (carvedilol 25 mg oral tablet) 2 tab(s) by mouth Two (2) times a day Unchanged cholecalciferol (Vitamin D3 125 mcg (5000 intl units) oral capsule) 1 cap by mouth Once a day with food Unchanged cloNIDine (cloNIDine 0.3 mg oral tablet) 1 tab(s) by mouth Three (3) times a day Unchanged cyclobenzaprine (cyclobenzaprine 10 mg oral tablet) 1 tab(s) by mouth Four (4) times a day as needed for as needed for spasm Unchanged dapagliflozin (Farxiga 10 mg oral tablet) 1 tab(s) by mouth Once a day Unchanged docusate (docusate sodium 100 mg oral tablet) 1 tab(s) by mouth Once a day Unchanged doxycycline (doxycycline hyclate 100 mg oral tablet) 1 tab(s) by mouth Two (2) times a day Unchanged dulaglutide (Trulicity Pen 1.5 mg/ 0.5 mL subcutaneous solution) 0.5 Milliliter Subcutaneous Every Monday Unchanged DULoxetine (DULoxetine 30 mg oral delayed release capsule) 1 cap by mouth Two (2) times a day do not crush or chew Unchanged finasteride (finasteride 5 mg oral tablet) 1 tab(s) by mouth Once a day Unchanged fluticasone nasal (fluticasone proprionate NASAL 50 mcg/ spray) 1 spray(s) each nostril Two (2) times a day Unchanged gabapentin (gabapentin 800 mg oral tablet) 1 tab(s) by mouth Three (3) times a day Unchanged gemfibrozil (gemfibrozil 600 mg oral tablet) 1 tab(s) by mouth Two (2) times a day Unchanged glucagon (glucagon 1 mg injection) 1 Each Subcutaneous As Directed as needed for for low blood sugar Unchanged hydrALAZINE (hydrALAZINE 100 mg oral tablet) 1 tab(s) by mouth Three (3) times a day Unchanged insulin aspart (Novolog) (NovoLOG 100 units/ mL injectable solution) See instructions before meals and hs Unchanged insulin regular (HumuLIN R KwikPEN (CONCENTRATED) insulin 500 units/ mL 3 mL) 105 unit(s) Subcutaneous (INT) Daily before lunch SEE LONGTERM MED LIST, ON LIST X3 NO INSTRUCTIONS ON TIME OF DOSE Unchanged insulin regular (HumuLIN R KwikPEN (CONCENTRATED) insulin 500 units/ mL 3 mL) 125 unit(s) Subcutaneous (INT) Daily before supper Unchanged insulin regular (HumuLIN R KwikPEN (CONCENTRATED) insulin 500 units/ mL 3 mL) 115 unit(s) Subcutaneous (INT) Before breakfast Unchanged isosorbide mononitrate (isosorbide mononitrate 60 mg oral tablet, extended release) 1 tab(s) by mouth Once a day Unchanged levETIRAcetam (Keppra 500 mg oral tablet) 1 tab(s) by mouth Two (2) times a day Unchanged loperamide (loperamide 2 mg oral capsule) 1 cap by mouth Every 4 hours as needed for for loose stool Unchanged melatonin (melatonin 3 mg oral tablet) 1 tab(s) by mouth Daily at bedtime as needed for as needed for insomnia Unchanged menthol topical (Biofreeze 4% topical gel) 1 application Topical Three (3) times a day as needed for as needed for pain Unchanged mirtazapine (mirtazapine 7.5 mg oral tablet) 1 tab(s) by mouth Daily at bedtime Unchanged ondansetron (ondansetron 4 mg oral tablet) 1 tab(s) by mouth Every 8 hours as needed for Nausea/Vomiting Unchanged oxyCODONE (oxyCODONE 10 mg oral tablet ( IMMEDIATE release )) 1 tab(s) by mouth Three (3) times a day with meals as needed for as needed for pain Unchanged polyethylene glycol 3350 (MiraLax oral powder for reconstitution) 17 gram(s) by mouth Once a day as needed for Constipation Unchanged rosuvastatin (rosuvastatin 40 mg oral tablet) 1 tab(s) by mouth Once a day Unchanged sertraline (sertraline 100 mg oral tablet) 1 tab(s) by mouth Once a day Unchanged sucralfate (Carafate 1 g oral tablet) 1 tab(s) by mouth Four (4) times a day Unchanged tamsulosin (tamsulosin 0.4 mg oral capsule) 1 cap by mouth Two (2) times a day Unchanged traZODone (traZODone 300 mg oral tablet) 1 tab(s) by mouth Daily at bedtime Pharmacy Information [facility] NE: [address] [place] [address] [phone] What How Much When Comments Stop Taking furosemide (furosemide 40 mg oral tablet) 1 tab(s) by mouth Monday / Monday / Monday BID Stop Taking furosemide (furosemide 40 mg oral tablet) 1 tab(s) by mouth Every Mon / / / Mon QD Stop Taking losartan (losartan 100 mg oral tablet) 1 tab(s) by mouth Once a day Please take this list to your next doctor s visit. Bring all medications you take, including over the counter medications, herbals and other supplements with you to your doctor s visit. Patients and families are reminded to discard old lists and to update any records with all medication providers or retail pharmacies. Medication Leaflets clopidogrel (kloe PID oh grel) Plavix What is the most important information I should know about clopidogrel? You should not use this medicine if you have any active bleeding such as a stomach ulcer or bleeding in the brain. Clopidogrel increases your risk of bleeding, which can be severe or life- threatening. Call your doctor or seek emergency medical attention if you have bleeding that will not stop, if you have blood in your urine, black or bloody stools, or if you cough up blood or vomit that looks like coffee grounds. Do not stop taking clopidogrel without first talking to your doctor, even if you have signs of bleeding. Stopping clopidogrel may increase your risk of a heart attack or stroke. What is clopidogrel? Clopidogrel is used to lower your risk of having a stroke, blood clot, or serious heart problem after you've had a heart attack, severe chest pain (angina), or circulation problems. Clopidogrel may also be used for purposes not listed in this medication guide. What should I discuss with my healthcare provider before taking clopidogrel? You should not use clopidogrel if you are allergic to it, or if you have: any active bleeding; or a stomach ulcer or bleeding in the brain (such as from a head injury). Tell your doctor if you have ever had: an ulcer in your stomach or intestines; or a bleeding disorder or blood clotting disorder. Clopidogrel may not work as well if you have certain genetic factors that affect the breakdown of this medicine in your body. Your doctor may perform a blood test to make sure clopidogrel is right for you. This medicine is not expected to harm an unborn baby. However, taking clopidogrel within 1 week before childbirth can cause bleeding in the mother. Tell your doctor if you are or plan to become . You should not breastfeed while using this medicine. How should I take clopidogrel? Follow all directions on your prescription label and read all medication guides or instruction sheets. Use these medicines exactly as directed. Clopidogrel can be taken with or without food. Clopidogrel is sometimes taken together with aspirin. Take aspirin only if your doctor tells you to. Clopidogrel keeps your blood from coagulating (clotting) and can make it easier for you to bleed, even from a minor injury. Contact your doctor or seek emergency medical attention if you have any bleeding that will not stop. You may need to stop using clopidogrel for a short time before a surgery, medical procedure, or dental work. Any healthcare provider who treats you should know that you are taking clopidogrel. Do not stop taking clopidogrel without first talking to your doctor, even if you have signs of bleeding. Stopping the medicine could increase your risk of a heart attack or stroke. Store at room temperature away from moisture and heat. What happens if I miss a dose? Take the medicine as soon as you can, but skip the missed dose if it is almost time for your next dose. Do not take two doses at one time. What happens if I overdose? Seek emergency medical attention or call the Poison Help line at . Overdose can causeexcessive bleeding. What should I avoid while taking clopidogrel? Avoid alcohol. It can increase your risk of stomach bleeding. Avoid activities that may increase your risk of bleeding or injury. Use extra care to prevent bleeding while shaving or brushing your teeth. If you also take aspirin: Ask a doctor or pharmacist before using medicines for pain, fever, swelling, or cold/flu symptoms. They may contain ingredients similar to aspirin (such as salicylates, ibuprofen, ketoprofen, or naproxen). Taking these products together can increase your risk of bleeding. What are the possible side effects of clopidogrel? Get emergency medical help if you have signs of an allergic reaction: hives; difficult breathing; swelling of your face, lips, tongue, or throat. Clopidogrel increases your risk of bleeding, which can be severe or life- threatening. Call your doctor or seek emergency medical attention if you have bleeding that will not stop, if you have blood in your urine, black or bloody stools, or if you cough up blood or vomit that looks like coffee grounds. Also call your doctor at once if you have: nosebleeds, pale skin, easy bruising, purple spots under your skin or in your mouth; jaundice (yellowing of your skin or eyes); fast heartbeats, shortness of breath; headache, fever, weakness, feeling tired; little or no urination; a seizure; low blood sugar--headache, hunger, sweating, irritability, dizziness, fast heart rate, and feeling anxious or shaky; or signs of a blood clot--sudden numbness or weakness, confusion, problems with vision or speech. Common side effects may include: bleeding. This is not a complete list of side effects and others may occur. Call your doctor for medical advice about side effects. You may report side effects to FDA at 5-675-YIJ-3244. What other drugs will affect clopidogrel? Sometimes it is not safe to use certain medications at the same time. Some drugs can affect your blood levels of other drugs you take, which may increase side effects or make the medications less effective. Tell your doctor about all your other medicines, especially: a stomach acid extension associate such as omeprazole, Nexium, or Prilosec; an antidepressant such as citalopram, fluoxetine, sertraline, Cymbalta, Effexor, Lexapro, Pristiq, or Prozac; rifampin; a blood thinner--warfarin, Coumadin, Jantoven; or NSAIDs (nonsteroidal anti-inflammatory drugs)--aspirin, ibuprofen (Advil, Motrin), naproxen (Aleve), celecoxib, diclofenac, indomethacin, meloxicam, and others. This list is not complete. Other drugs may affect clopidogrel, including prescription and cwra-btu-aclxycw medicines, vitamins, and herbal products. Not all possible drug interactions are listed here. Where can I get more information? Your pharmacist can provide more information about clopidogrel. Remember, keep this and all other medicines out of the reach of children, never share your medicines with others, and use this medication only for the indication prescribed. Every effort has been made to ensure that the information provided by [employer]. ('[employer]') is accurate, up-to-date, and complete, but no guarantee is made to that effect. Drug information contained herein may be time sensitive. [employer] information has been compiled for use by healthcare practitioners and consumers in the [place] and therefore [employer] does not warrant that uses outside of the [place] are appropriate, unless specifically indicated otherwise. [employer] drug information does not endorse drugs, diagnose patients or recommend therapy. [employer] drug information isan informational resource designed to assist licensed healthcare practitioners in caring for their p atients and/or to serve consumers viewing this service as a supplement to, and not a substitute for, the expertise, skill, knowledge and judgment of healthcare practitioners. The absence of a warningfor a given drug or drug combination in no way should be construed to indicate that the drug or drug combination is safe, effective or appropriate for any given patient. [employer] does not assume any responsibility for any aspect of healthcare administered with the aid of information [employer] provides. The information contained herein is not intended to cover all possible uses, directions, precautions, warnings, drug interactions, allergic reactions, or adverse effects. If you have questions about the drugs you are taking, check with your doctor, nurse or pharmacist. Copyright 0726-0689 [employer]. Version: 18.01. Revision Date: 06/17/2020. Education Materials Angina Angina is very bad discomfort or pain in the chest, neck, arm, jaw, or back. The discomfort is caused by a lack of blood in the middle layer of the heart wall (myocardium). What are the causes? This condition is caused by a buildup of fat and cholesterol (plaque) in your arteries (atherosclerosis). This buildup narrows the arteries and makes it hard for blood to flow. What increases the risk? You are more likely to develop this condition if: You have high levels of cholesterol in your blood. You have high blood pressure (hypertension). You have diabetes. You have a family history of heart disease. You are not active, or you do not exercise enough. You feel sad (depressed). You have been treated with high energy rays (radiation) on the left side of your chest. Other risk factors are: Using tobacco. Being very overweight (obese). Eating a diet high in unhealthy fats (saturated fats). Having stress, or being exposed to things that cause stress. Using drugs, such as cocaine. Women have a greater risk for angina if: They are older than 55. They have stopped having their period (are in postmenopause). What are the signs or symptoms? Common symptoms of this condition in both men and women may include: Chest pain, which may: ? Feel like a crushing or squeezing in the chest. ? Feel like a tightness, pressure, fullness, or heaviness in the chest. ? Last for more than a few minutes at a time. ? Stop and come back (recur) after a few minutes. Pain in the neck, arm, jaw, or back. Heartburn or upset stomach (indigestion) for no reason. Being short of breath. Feeling sick to your stomach (nauseous). Sudden cold sweats. Women and people with diabetes may have other symptoms that are not usual, such as feeling: Tired (fatigue). Worried or nervous (anxious) for no reason. Weak for no reason. Dizzy or passing out (fainting). How is this treated? This condition may be treated with: Medicines. These are given to: ? Prevent blood clots. ? Prevent heart attack. ? Relax blood vessels and improve blood flow to the heart (nitrates). ? Reduce blood pressure. ? Improve the pumping action of the heart. ? Reduce fat and cholesterol in the blood. A procedure to widen a narrowed or blocked artery in the heart (angioplasty). Surgery to allow blood to go around a blocked artery (coronary artery bypass surgery). Follow these instructions at home: Medicines Take sxkg-vbd-tmkazbq and prescription medicines only as told by your doctor. Do not take these medicines unless your doctor says that you can: ? NSAIDs. These include: ? Ibuprofen. ? Naproxen. ? Vitamin supplements that have vitamin A, vitamin E, or both. ? Hormone therapy that contains estrogen with or without progestin. Eating and drinking Eat a heart-healthy diet that includes: ? Lots of fresh fruits and vegetables. ? Whole grains. ? Low-fat (lean) protein. ? Low-fat dairy products. Follow instructions from your doctor about what you cannot eat or drink. Activity Follow an exercise program that your doctor tells you. Talk with your doctor about joining a program to help improve the health of your heart (cardiac rehab). When you feel tired, take a break. Plan breaks if you know you are going to feel tired. Lifestyle Do not use any products that contain nicotine or tobacco. This includes cigarettes, e-cigarettes, and chewing tobacco. If you need help quitting, ask your doctor. If your doctor says you can drink alcohol: ? Limit how much you use to: ? 0 1 drink a day for women who are not . ? 0 2 drinks a day for men. ? Be aware of how much alcohol is in your drink. In the [place] one drink equals: ? One 12 oz bottle of beer (355 mL). ? One 5 oz glass of wine (148 mL). ? One 1 oz glass of hard liquor (44 mL). General instructions Stay at a healthy weight. If your doctor tells you to do so, work with him or her to lose weight. Learn to deal with stress. If you need help, ask your doctor. Keep your vaccines up to date. Get a flu shot every year. Talk with your doctor if you feel sad. Take a screening test to see if you are at risk for depression. Work with your doctor to manage any other health problems that you have. These may include diabetesor high blood pressure. Keep all follow-up visits as told by your doctor. This is important. Get help right away if: You have pain in your chest, neck, arm, jaw, or back, and the pain: ? Lasts more than a few minutes. ? Comes back. ? Does not get better after you take medicine under your tongue (sublingual nitroglycerin). ? Keeps getting worse. ? Comes more often. You have any of these problems for no reason: ? Sweating a lot. ? Heartburn or upset stomach. ? Shortness of breath. ? Trouble breathing. ? Feeling sick to your stomach. ? Throwing up (vomiting). ? Feeling more tired than normal. ? Feeling nervous or worrying more than normal. ? Weakness. You are suddenly dizzy or light-headed. You pass out. These symptoms may be an emergency. Do not wait to see if the symptoms will go away. Get medical help right away. Call your local emergency services (911 in the [place] Do not drive yourself to the hospital. Summary Angina is very bad discomfort or pain in the chest, neck, arm, neck, or back. Symptoms include chest pain, heartburn or upset stomach for no reason, and shortness of breath. Women or people with diabetes may have symptoms that are not usual, such as feeling nervous or worried for no reason, weak for no reason, or tired. Take all medicines only as told by your doctor. You should eat a heart-healthy diet and follow an exercise program. This information is not intended to replace advice given to you by your health care provider. Make sure you discuss any questions you have with your health care provider. Document Released: 08/22/2008 Document Revised: 10/22/2018 Document Reviewed: 10/22/2018 [employer] Patient Education 2020 [employer]. Additional Information VACCINATE! IT SAVES LIVES! Members of the community who have not yet received the COVID-19 vaccine and would like to receive it can visit one of [facility] vaccine clinics. There are many vaccine clinic locations within the [facility]. For locations and available times, please visit [email or web address].[place].gov/. It is important to note that some COVID mobile vaccine clinics are held outdoors and may be canceled in rainy or stormy conditions. To learn more about pediatric vaccinations (ages 5-11), we invite you to visit the [facility] webpage. [email or web address] learn more about the COVID-19 vaccine, we invite you to visit the CDC website for a list of frequently asked questions.https://www.cdc.gov/coronavirus/2019-ncov/vaccines/faq.html [facility] Patient Portal Access Instructions: Stay connected with your healthcare team and access your personal medical information anytime with the [facility] Patient Portal. Please follow the directions below to create your [facility] account: 1.Access the email account you provided upon registration to the hospital/physician office.2.Look for an invitation email from [facility].3.Open the email and access the invitation link: AcceptInvitation to [facility].4.Fill in the required bang to create your account. To access your account, visit [email or web address]. Click the blue button labeled Access Patient Portal and then log in with the username and password that you created in the steps above. You will be able to view your test results, lab results, a summary of your visits, upcoming appointments and more. There is also a convenient messaging option where you can send secure messages to your [facility]. In addition, you will have the ability to download any documents or summaries to your computer and/or send the information securely to a physician. Remember that your healthcare information is confidential, so carefully consider who you will allowto register on the [facility] Portal for access to your information. You can also access the [facility] Patient Portal on the [facility] nurys. Simply click on Patient Portal and then log into your account. If you would like to receive a full copy of your medical records, please contact the [facility] Medical Records Department by calling [phone], Monday through Monday between 8 a.m. and 4:30 p.m. HOW TO SAFELY DISPOSE OF PRESCRIPTION MEDICATIONS Please use one of the following methods to safely dispose of your unused medications. 1.Use a drug disposal kit: the drug disposal pouch allows you to safely discard your old and unuseddrugs. Ask your nurse to give you one when you are discharged.2.Visit a local take-back location: Many local pharmacies and police departments have programs that collect old and unwanted prescriptiondrugs. Call your local pharmacy or go to http://bit.Red LaGoon/1K6Mn4g to find one close to you.3.Make use of household items: Use cat litter or old coffee grounds to dispose medications if other options arenot available. Mix your drugs with these household products, seal them in an airtight container andthrow it into the garbage. Call [facility]: [phone] to be sure your drugs can be disposed of in this way. Some medicines may require a different approach.4.Never flush your medications down the toilet. IF YOU HAVE BEEN PRESCRIBED AN OPIOID FOR PAIN If you have been prescribed an opioid (such as hydrocodone, oxycodone or morphine), it is critical to understand the possible side effects and risks of opioid pain medications. Even when taken as directed, opioids can have several side effects including: Tolerance, meaning you might need to take more of a medication for the same pain relief. Nausea, vomiting and/or constipation. Sleepiness, dizziness, dry mouth, confusion, depression or itching. Physical dependence, meaning you have withdrawal symptoms when a medication is stopped, can develop within a few days. KNOW YOUR RESPONSIBILITIES It is important to know exactly how much and how often to take the opioid pain medications you are prescribed. Never take opioids in higher amounts or more often than prescribed. Do not combine opioids with alcohol or other drugs that cause drowsiness, such as benzodiazepines, also known as benzos, including diazepam and alprazolam, muscle relaxants or sleep aids. Never sell or share prescription opioids. This is illegal. Store opioids in a secure place and out of reach of others (including children, family, friends and visitors). The last page of this document has been signed and retained as a CHART COPY. Signatures Patient Education Materials Angina, Dgis-co-Unzx Medication Leaflets Plavix My discharge plan and instructions have been reviewed and explained to me and IRUSSELL JEFFREY Runderstand my current condition and have read and understand these discharge instructions. I have received a written copy of the plan/instructions. If I have questions, I am aware that I should contact my doctor. 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 Signature: Date/Time: Relationship to Patient: Witness Name/Signature: [id number] Discharge summary Date of Service September 29, 2023 Discharge Diagnosis Unstable angina status post PCI to RCA 09/27/23 CAD, prior stent to proximal LCx, IMPLEMENTATION SPECIALIST PAYROLL of mid LCx, collateral flow from distal LAD to distal LCx TK on CKD baseline appears to be 1.5, contrast induced nephropathy Hypertension Hyperlipidemia Hospital Course Patient presented as an elective outpatient cath, required anesthesia due to severe back pain and to undergo cath. Patient had 90% stenosis in the proximal RCA which was successfully stented. Patientdoes have a IMPLEMENTATION SPECIALIST PAYROLL in the mid left circumflex which was attempted to recanalize however then noted to be a IMPLEMENTATION SPECIALIST PAYROLL which had good collaterals from LAD hence this is being medically managed. Patient with diabetes and CKD, has been on 100 cc an hour for the last 24 hours however creatinine is still uptrending, nephrology consulted for contrast induced nephropathy, was monitored another 24 hrs, we discussed with nephrology that patient is having a lot of back pain (chronic but worsened while in hospital due to not having his fdc bed), we did cover for possible interstitial nephritis with 5 days of oral steroids, nephro ok with BMP in 5 days. Lasix and losartan have been discontinued until repeat BMP is obtained. Once BMP is reviewed, patient should be ok to be resumed on home lasix regimen and losartan. [facility] 09/27/2023 Procedures performed: Left heart catheterization. Left ventriculography. Left coronary angiography. Right coronary angiography. Percutaneous intervention on the 90% stenosis in the proximal right coronary. Stent placement. SUMMARY: 1. 1st lesion: Stent placement was performed. A 3.5 mm (D) x 28 mm (L), Synergy XD stent was used. The stent was advanced across the lesion and deployed with four inflations and a maximum pressure of 20 fanny. 2. Left ventricle: Systolic function is normal. The estimated ejection fraction is 65-70%. Wall motion is normal; there are no regional wall motion abnormalities. 3. Left circumflex: Mid-vessel lesion: There is a chronic total occlusion. 4. Right coronary: Proximal vessel lesion: The diagnostic study demonstrated a tubular, 20 mm (L), 90% stenosis. The distal vessel supplies a large vascular territory. The lesion is a likely culprit for the patient'sanginal symptoms and clinical presentation. The lesion presents an ACC/AHA type C high risk lesion for intervention. Stent placement was performed, with balloon angioplasty, resulting in an excellent angiographic appearance (see 1st lesion). Following intervention, there is a residual 0% stenosis with SARAH grade 3 flow (brisk flow). IMPRESSIONS: 1. Acute coronary syndrome. Reperfusion was successfully achieved. 2. successful ptca/juan m of rca w/o co mplication iv aggrastat bolus plavix asa tr band post procedure. attempted to recannalize lcx but appears to be [employer] does have good collaterals from [facility] if fails could re attempt Allergies fentaNYL (Moderate) nausea, vomiting HYDROcodone Bitartrate Unknown Haldol Unknown acetaminophen Unknown ibuprofen affects kidneys Consults Consult to Physician - Ordered -- 09/28/23 10:33:00 EDT, ARABELLA SIMPSON MD, Routine, TK on ckd patient very eager to return to [place] please evaluate Consult to Physician - Ordered -- 09/28/23 15:04:00 EDT, KSENIA MARK MD, Routine, Other, pain management Consult to Physician - Ordered -- 09/28/23 15:05:00 EDT, KSENIA MARK MD, Routine, pain management Physical Exam Vitals and Measurements T: 36.5 C (Oral) TMIN: 36.4 C (Oral) TMAX: 36.7 C (Oral) HR: 67 (Monitored) RR: 18 BP: 130/82 SpO2:94% Weight Dosing Weight: 144.7 kg (09/27/23) Dosing Weight: 144.7 kg (09/26/23) Constitutional: Oriented to time, place, and person - well developed - well nourished Cardiovascular: JVD not elevated, S1 S2 present,No added sounds, no LE edema Abdomen: nontender Musculoskeletal system: general/bilateral Normal movement of all extremities Neurological: NFND. Skin: color and pigmentation is normal Code Status Code Status - Ordered -- 09/26/23 9:13:00 EDT, Full Code, Constant Order Code Status - Ordered -- 09/26/23 9:14:00 EDT, Full Code, Constant Order Admission Date 09/26/2023 Discharge Date 09/29/2023 Patient Instructions - Please follow up with your Primary Care Physician (PCP) as soon as possible. - Please follow-up with all specialists as documented below. - Please keep all follow-up appointments. - Please take all medications as prescribed. - Please return for medical care if your condition worsens or changes. Medications New Prescription aspirin (Morro SvitStyles Aspirin 81 mg oral tablet, (chewable))1 tab(s) by mouth once a day with a meal for 180 Days. Refills: 2. clopidogrel (Plavix 75 mg oral tablet)1 tab(s) by mouth once a day for 180 Days. Refills: 2. predniSONE (predniSONE 10 mg oral tablet)4 tab(s) by mouth once a day for 5 Days. Take with food. Refills: 0. Changed pantoprazole (pantoprazole 40 mg oral enteric coated tablet)1 tab(s) by mouth once a day (in the morning). pantoprazole (Protonix 40 mg oral enteric coated tablet)1 tab(s) by mouth once a day. Refills: 0. Unchanged albuterol-ipratropium (albuterol-ipratropium 2.5 mg-0.5 mg/3 mL inhalation solution)3 Milliliter byinhalation every 6 hours. amLODIPine (amLODIPine 10 mg oral tablet)1 tab(s) by mouth once a day. ascorbic acid (ascorbic acid 500 mg oral capsule)1 cap by mouth once a day. bismuth subsalicylate (Pepto-Bismol Diarrhea 525 mg/10 mL oral suspension)30 Milliliter by mouth every hour as needed Indigestion. carvedilol (carvedilol 25 mg oral tablet)2 tab(s) by mouth two (2) times a day. cholecalciferol (Vitamin D3 125 mcg (5000 intl units) oral capsule)1 cap by mouth once a day. with food. cloNIDine (cloNIDine 0.3 mg oral tablet)1 tab(s) by mouth three (3) times a day. cyclobenzaprine (cyclobenzaprine 10 mg oral tablet)1 tab(s) by mouth four (4) times a day as neededas needed for spasm. dapagliflozin (Farxiga 10 mg oral tablet)1 tab(s) by mouth once a day. docusate (docusate sodium 100 mg oral tablet)1 tab(s) by mouth once a day. doxycycline (doxycycline hyclate 100 mg oral tablet)1 tab(s) by mouth two (2) times a day. dulaglutide (Trulicity Pen 1.5 mg/0.5 mL subcutaneous solution)0.5 Milliliter Subcutaneous every Monday. DULoxetine (DULoxetine 30 mg oral delayed release capsule)1 cap by mouth two (2) times a day. do not crush or chew. finasteride (finasteride 5 mg oral tablet)1 tab(s) by mouth once a day. fluticasone nasal (fluticasone proprionate NASAL 50 mcg/ spray)1 spray(s) each nostril two (2) times a day. gabapentin (gabapentin 800 mg oral tablet)1 tab(s) by mouth three (3) times a day. gemfibrozil (gemfibrozil 600 mg oral tablet)1 tab(s) by mouth two (2) times a day. glucagon (glucagon 1 mg injection)1 Each Subcutaneous As Directed as needed for low blood sugar. hydrALAZINE (hydrALAZINE 100 mg oral tablet)1 tab(s) by mouth three (3) times a day. insulin aspart (Novolog) (NovoLOG 100 units/mL injectable solution)before meals and hs. insulin regular (HumuLIN R KwikPEN (CONCENTRATED) insulin 500 units/mL 3 mL)105 unit(s) Subcutaneous (INT) daily before lunch. SEE LONGTERM MED LIST, ON LIST X3 NO INSTRUCTIONS ON TIME OF DOSE. insulin regular (HumuLIN R KwikPEN (CONCENTRATED) insulin 500 units/mL 3 mL)125 unit(s) Subcutaneous (INT) daily before supper. insulin regular (HumuLIN R KwikPEN (CONCENTRATED) insulin 500 units/mL 3 mL)115 unit(s) Subcutaneous (INT) before breakfast. isosorbide mononitrate (isosorbide mononitrate 60 mg oral tablet, extended release)1 tab(s) by mouth once a day. levETIRAcetam (Keppra 500 mg oral tablet)1 tab(s) by mouth two (2) times a day. loperamide (loperamide 2 mg oral capsule)1 cap by mouth every 4 hours as needed for loose stool. melatonin (melatonin 3 mg oral tablet)1 tab(s) by mouth daily at bedtime as needed as needed for insomnia. menthol topical (Biofreeze 4% topical gel)1 application Topical three (3) times a day as needed as needed for pain. mirtazapine (mirtazapine 7.5 mg oral tablet)1 tab(s) by mouth daily at bedtime. ondansetron (ondansetron 4 mg oral tablet)1 tab(s) by mouth every 8 hours as needed Nausea/Vomiting. oxyCODONE (oxyCODONE 10 mg oral tablet ( IMMEDIATE release ))1 tab(s) by mouth three (3) times a day with meals as needed as needed for pain. polyethylene glycol 3350 (MiraLax oral powder for reconstitution)17 gram(s) by mouth once a day as needed Constipation. rosuvastatin (rosuvastatin 40 mg oral tablet)1 tab(s) by mouth once a day. sertraline (sertraline 100 mg oral tablet)1 tab(s) by mouth once a day. sucralfate (Carafate 1 g oral tablet)1 tab(s) by mouth four (4) times a day. tamsulosin (tamsulosin 0.4 mg oral capsule)1 cap by mouth two (2) times a day. traZODone (traZODone 300 mg oral tablet)1 tab(s) by mouth daily at bedtime. Discontinued furosemide (furosemide 40 mg oral tablet)1 tab(s) by mouth Monday / Monday / Monday. BID. furosemide (furosemide 40 mg oral tablet)1 tab(s) by mouth every Sun / / Th / Sat. QD. losartan (losartan 100 mg oral tablet)1 tab(s) by mouth once a day. Follow Up Follow Up with [facility] When:Within 3-7 days Where:[address] [place] [id number]- Additional Information: back wound [facility] Where:[address] [place] [address]- Additional Information: The cardiac rehab department will contact you in 1-2 weeks to schedule phase 2. Information was given about cardiac rehab. If you have questions please call [phone]. Follow Up with STACEY COULTER MD, Internal Medicine When:Within 1-2 days Where:[address] [facility] [address] [place] [address]- Follow Up with SHANTAL INTERIANO MD When:10/11/2023 02:30 PM EDT Where:[address] [facility] [place] [address]- [phone] Follow Up Appointments No qualifying data available. Follow Up Labs/Studies Discharge Labs Discharge Outpatient Labwork - Ordered -- bmp, renal function post cath, after 5 days of prednisone for intersitital nephritis, follow-up within: 3-5 days, Results Notify to: TOÑITO VELA MD, 09/29/23 14:40:00 EDT Discharge Studies No Follow-up Studies Discharge Diet Discharge Diet - Ordered -- Type of Diet: Cardiac, 09/29/23 14:41:00 EDT Discharge Activity Discharge Activity - Ordered -- Lifting Restricted less than 10 pounds, x 2 weeks, 09/29/23 14:41:00 EDT Condition on Discharge stable Discharge Disposition nursing facility Digitally Signed by NEO MURPHY MD on 09/29/2023 02:45 PM [id number] Note [facility] Hospitalist Progress Note Chief Complaint: Back pain Subjective: 57 yo male with PMhx significant for CAD, prior stenting, TK on CKD, HTN, HLD who was admitted on 09/26/2023 secondary to unstable angina and underwent PCI by cardiology with PCI to RCA. Currently with TK on CKD and awaiting nephrology evaluation. Hospitalist consulted given patient with chronic longstanding back pain secondary to multiple back surgeries, prior infection requiring removal of hardware and chronic pain secondary to these factors. Hospitalist consulted for pain medication adjustment. No acute distress on exam. Back pain fairly well-controlled at this time. Hopeful for discharge today. Labs: Reviewed 09/28 09:21 WBC: 7.4 Hgb: 10.8 L Hct: 31.6 L Platelet: 120 L Neutrophil %: 88.9 H Glucose Level: 278 H Sodium Level: 134 L Potassium Level: 4.6 BUN: 38.0 H Creatinine Lvl (s): 2.72 H 09/27 07:42 Glucose Level: 137 H Sodium Level: 138 Potassium Level: 4.2 BUN: 42.0 H Creatinine Lvl (s): 2.60 H Microbiology No qualifying data available. XR Chest 1 View Result Date: September 28, 2023 Verified By: KIA LOPEZ MD CLINICAL STATEMENT: IMPRESSION: Mild hazy airspace disease in the mid and lower lungs bilaterally couldrepresent a developing infectious or inflammatory process versus atelectasis. Inpatient medications:Medications (39) Active Scheduled: (28) amLODIPine 10 mg tablet 10 mg 1 tab(s), Oral, qDay aspirin 81 mg Chewable 81 mg 1 tab(s), Oral, qDayM carvedilol 25 mg tablet 50 mg 2 tab(s), Oral, BID cloNIDine 0.3 mg tablet 0.3 mg 1 tab(s), Oral, TID clopidogrel 75 mg Tablet 75 mg 1 tab(s), Oral, qDay dapagliflozin 10 mg tablet 10 mg 1 tab(s), Oral, qDay docusate sodium 100 mg Capsule 100 mg 1 cap(s), Oral, qDay doxycycline hyclate 100 mg Capsule 100 mg 1 cap(s), Oral, BID duloxetine [address] capsule 30 mg 1 cap(s), Oral, BID finasteride 5 mg tablet 5 mg 1 tab(s), Oral, qDay fluticasone nasal 0.05 mg/inh [facility] 50 mcg 1 spray(s), Nostril, each, BID gabapentin 400 mg capsule 800 mg 2 cap(s), Oral, TID gemfibrozil 600 mg tablet 600 mg 1 tab(s), Oral, BID hydralazine 50 mg Tablet 100 mg 2 tab(s), Oral, TID insulin lispro 100 units/mL Soln (3 mL) Give 0-15 units/dose, Subcutaneous, TIDAC insulin R 500units/mL Concentrated 105 unit(s) 0.21 mL, Subcutaneous (INT), acLunch insulin R 500units/mL Concentrated 125 unit(s) 0.25 mL, Subcutaneous (INT), acSupper insulin R 500units/mL Concentrated 115 unit(s) 0.23 mL, Subcutaneous (INT), acBreakfast isosorbide mononitrate 60 mg ER tablet 60 mg 1 tab(s), Oral, qDay levETIRAcetam 500 mg tablet 500 mg 1 tab(s), Oral, BID methylPREDNISolone succ 40mg (40 mg/1mL) after dilution 20 mg 0.5 mL, IV Push, q12hr mirtazapine 7.5 mg tablet 7.5 mg 1 tab(s), Oral, qHS No metformin for 48 hrs post contrast 1 EA, Miscellaneous, Unscheduled oxycodone 5 mg tablet (immediate release) 10 mg 2 tab(s), Oral, q6hr sertraline 100 mg tablet 100 mg 1 tab(s), Oral, qDay sucralfate 1 gm tablet 1 gram(s) 1 tab(s), Oral, QID tamsulosin 0.4 mg Capsule 0.4 mg 1 cap(s), Oral, BID traZODONE 150 mg Tablet 300 mg 2 tab(s), Oral, qHS Continuous: (0) PRN: (11) albuterol - ipratropium 2.5 mg-0.5 mg/3 mL Inhal Corrine UD 3 mL, Inhalation, q4hRT atropine 0.4 mg/ml 1 mL vial 0.4 mg 1 mL, IV Push, AsDirected dextrose 50% Solution Disp syringe 50 mL 12.5 gram(s) 25 mL, IV Push, AsDirected glucagon recombinant 1 mg 1 mg 1 mL, Subcutaneous, AsDirected hydromorphone 1 mg/mL (1mL) INJ 1 mg 1 mL, IV Push, q4h LORAZEPam 0.5 mg tablet 0.5 mg 1 tab(s), Oral, q4h ondansetron 2 mg/ 1 mL 2 mL INJ 4 mg 2 mL, IV Push, q4h potassium chloride (PMX) 20 mEq/100 mL 20 mEq 100 mL, IV Piggyback, AsDirected potassium chloride 20 mEq ER tablet 20 mEq 1 tab(s), Oral, AsDirected potassium chloride 20 mEq ER tablet 40 mEq 2 tab(s), Oral, AsDirected potassium chloride 20 mEq ER tablet 40 mEq 2 tab(s), Oral, AsDirected Vitals: Temperature Oral: 36.4 DegC Heart Rate Monitored: 68 bpm Respiratory Rate: 18 br/min Systolic Blood Pressure Non-Invasive: 136 mmHg Diastolic Blood Pressure Non-Invasive: 74 mmHg Mean Arterial Pressure (NBP): 80 mmHg Blood Pressure Method: Manual Blood Pressure Location: Left arm Blood Pressure Cuff Size: Medium Reason For Taking VItal Signs: Routine No acute distress on exam. Sitting up in bedside chair. Alert and orient x 4. Assessment 1. Chronic low back pain with history of multiple back surgeries and prior infection with hardware removal, follows with Dr. Joseph 2. CAD with prior stenting and this admission with PCI to RCA 3. Unstable angina as above 4. TK on CKD 5. HTN 6. HLD Plan: Continue current pain regimen, plan for discharge today, would discharge on current and home pain management. Hospital service will sign off at this time. Thank you for consultation. Digitally Signed by MICKI JIMENEZ DO on 09/29/2023 04:36 PM [facility] [id number] Note Discharge Instructions Thank you for allowing [facility] to assist you with your healthcare needs. The following is importantdischarge information regarding your hospital visit. Your Care Team STACEY COULTER MD What to do next Scheduled Follow-Up Appointments Appointment Type When Where Contact Information StatusCV OV 10/11/2023 02:30 PM EDT [facility] Confirmed Follow Up Appointments Follow Up with Discharge to TIFFANY Gutierrez When:Within 1-2 days Follow Up with [facility] When:Within 3-7 days Where:[address] [place] [id number]- Additional Information: back wound Follow Up with [facility] Where:[address] [place] [address]- Additional Information: The cardiac rehab department will contact you in 1-2 weeks to schedule phase 2. Information was given about cardiac rehab. If you have questions please call [phone]. Follow Up with STACEY COULTER MD, Internal Medicine When:Within 1-2 days Where:[address] [facility] [place] [address]- Follow Up with SHANTAL INTERIANO MD When:10/11/2023 02:30 PM EDT Where:[address] [facility] [address] [place] [address]- [phone] The Following Activity and Diet Have Been Ordered for You Discharge Activity - Ordered -- Lifting Restricted less than 10 pounds, x 2 weeks, 09/29/23 14:41:00 EDT Transfer of Care Activity - Ordered -- Activity As Tolerated, 09/29/23 15:43:00 EDT Discharge Diet - Ordered -- Type of Diet: Cardiac, 09/29/23 14:41:00 EDT Transfer of Care Diet - Ordered -- Type of Diet: Regular Diet, 09/29/23 15:43:00 EDT The Following Equipment Has Been Ordered for You No qualifying data available. 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 Other Therapies No qualifying data available. Post Acute Orders Transfer of Care Admission Level of Care - Ordered -- Level of Care ICF, 09/29/23 15:44:48 EDT Transfer of Care Code Status - Ordered -- Full Code, Constant Order Transfer of Care Orders Electronically Signed By - Ordered -- 09/29/23 15:43:00 EDT, TOÑITO VELA MD Transfer of Care Prognosis - Ordered -- Fair, Patient Aware: Yes Transfer of Care Rehab Potential - Ordered -- Rehab potential fair, 09/29/23 15:44:07 EDT Someone Will Contact You Regarding These Home Health Referrals No home referrals have been ordered for you. No one will call you. Allergies fentaNYL (Moderate) nausea, vomiting HYDROcodone Bitartrate Unknown Haldol Unknown acetaminophen Unknown ibuprofen affects kidneys Medications Please ask your primary doctor or pharmacist before taking any other medication not listed, including over the counter drugs, herbal medications, vitamins and or supplements as they may interact withyour home medications. What How Much When Instructions Last Dose New aspirin (Morro Childrens Aspirin 81 mg oral tablet, (chewable)) 1 tab(s) by mouth Once a day with a meal Duration: 180 Days Refills: 2 Pickup at [facility] New clopidogrel (Plavix 75 mg oral tablet) 1 tab(s) by mouth Once a day Duration: 180 Days Refills: 2 Pickup at [facility] New predniSONE (predniSONE 10 mg oral tablet) 4 tab(s) by mouth Once a day Duration: 5 Days Take with food Pickup at [facility] Changed pantoprazole (pantoprazole 40 mg oral enteric coated tablet) 1 tab(s) by mouth Once a day (in the morning) Changed pantoprazole (Protonix 40 mg oral enteric coated tablet) 1 tab(s) by mouth Once a day Pickup at [facility] Unchanged albuterol-ipratropium (albuterol-ipratropium 2.5 mg-0.5 mg/ 3 mL inhalation solution) 3 Milliliter by inhalation Every 6 hours Unchanged amLODIPine (amLODIPine 10 mg oral tablet) 1 tab(s) by mouth Once a day Unchanged ascorbic acid (ascorbic acid 500 mg oral capsule) 1 cap by mouth Once a day Unchanged bismuth subsalicylate (Pepto-Bismol Diarrhea 525 mg/ 10 mL oral suspension) 30 Milliliter by mouth Every hour as needed for Indigestion Unchanged carvedilol (carvedilol 25 mg oral tablet) 2 tab(s) by mouth Two (2) times a day Unchanged cholecalciferol (Vitamin D3 125 mcg (5000 intl units) oral capsule) 1 cap by mouth Once a day with food Unchanged cloNIDine (cloNIDine 0.3 mg oral tablet) 1 tab(s) by mouth Three (3) times a day Unchanged cyclobenzaprine (cyclobenzaprine 10 mg oral tablet) 1 tab(s) by mouth Four (4) times a day as needed for as needed for spasm Unchanged dapagliflozin (Farxiga 10 mg oral tablet) 1 tab(s) by mouth Once a day Unchanged docusate (docusate sodium 100 mg oral tablet) 1 tab(s) by mouth Once a day Unchanged doxycycline (doxycycline hyclate 100 mg oral tablet) 1 tab(s) by mouth Two (2) times a day Unchanged dulaglutide (Trulicity Pen 1.5 mg/ 0.5 mL subcutaneous solution) 0.5 Milliliter Subcutaneous Every Monday Unchanged DULoxetine (DULoxetine 30 mg oral delayed release capsule) 1 cap by mouth Two (2) times a day do not crush or chew Unchanged finasteride (finasteride 5 mg oral tablet) 1 tab(s) by mouth Once a day Unchanged fluticasone nasal (fluticasone proprionate NASAL 50 mcg/ spray) 1 spray(s) each nostril Two (2) times a day Unchanged gabapentin (gabapentin 800 mg oral tablet) 1 tab(s) by mouth Three (3) times a day Unchanged gemfibrozil (gemfibrozil 600 mg oral tablet) 1 tab(s) by mouth Two (2) times a day Unchanged glucagon (glucagon 1 mg injection) 1 Each Subcutaneous As Directed as needed for for low blood sugar Unchanged hydrALAZINE (hydrALAZINE 100 mg oral tablet) 1 tab(s) by mouth Three (3) times a day Unchanged insulin aspart (Novolog) (NovoLOG 100 units/ mL injectable solution) See instructions before meals and hs Unchanged insulin regular (HumuLIN R KwikPEN (CONCENTRATED) insulin 500 units/ mL 3 mL) 105 unit(s) Subcutaneous (INT) Daily before lunch SEE LONGTERM MED LIST, ON LIST X3 NO INSTRUCTIONS ON TIME OF DOSE Unchanged insulin regular (HumuLIN R KwikPEN (CONCENTRATED) insulin 500 units/ mL 3 mL) 125 unit(s) Subcutaneous (INT) Daily before supper Unchanged insulin regular (HumuLIN R KwikPEN (CONCENTRATED) insulin 500 units/ mL 3 mL) 115 unit(s) Subcutaneous (INT) Before breakfast Unchanged isosorbide mononitrate (isosorbide mononitrate 60 mg oral tablet, extended release) 1 tab(s) by mouth Once a day Unchanged levETIRAcetam (Keppra 500 mg oral tablet) 1 tab(s) by mouth Two (2) times a day Unchanged loperamide (loperamide 2 mg oral capsule) 1 cap by mouth Every 4 hours as needed for for loose stool Unchanged melatonin (melatonin 3 mg oral tablet) 1 tab(s) by mouth Daily at bedtime as needed for as needed for insomnia Unchanged menthol topical (Biofreeze 4% topical gel) 1 application Topical Three (3) times a day as needed for as needed for pain Unchanged mirtazapine (mirtazapine 7.5 mg oral tablet) 1 tab(s) by mouth Daily at bedtime Unchanged ondansetron (ondansetron 4 mg oral tablet) 1 tab(s) by mouth Every 8 hours as needed for Nausea/Vomiting Unchanged oxyCODONE (oxyCODONE 10 mg oral tablet ( IMMEDIATE release )) 1 tab(s) by mouth Three (3) times a day with meals as needed for as needed for pain Unchanged polyethylene glycol 3350 (MiraLax oral powder for reconstitution) 17 gram(s) by mouth Once a day as needed for Constipation Unchanged rosuvastatin (rosuvastatin 40 mg oral tablet) 1 tab(s) by mouth Once a day Unchanged sertraline (sertraline 100 mg oral tablet) 1 tab(s) by mouth Once a day Unchanged sucralfate (Carafate 1 g oral tablet) 1 tab(s) by mouth Four (4) times a day Unchanged tamsulosin (tamsulosin 0.4 mg oral capsule) 1 cap by mouth Two (2) times a day Unchanged traZODone (traZODone 300 mg oral tablet) 1 tab(s) by mouth Daily at bedtime Pharmacy Information [facility] [place]: [address] [place] [address] [phone] What How Much When Comments Stop Taking furosemide (furosemide 40 mg oral tablet) 1 tab(s) by mouth Monday / Monday / Monday BID Stop Taking furosemide (furosemide 40 mg oral tablet) 1 tab(s) by mouth Every Mon / / / Sat QD Stop Taking losartan (losartan 100 mg oral tablet) 1 tab(s) by mouth Once a day Please take this list to your next doctor s visit. Bring all medications you take, including over the counter medications, herbals and other supplements with you to your doctor s visit. Patients and families are reminded to discard old lists and to update any records with all medication providers or retail pharmacies. Additional Information VACCINATE! IT SAVES LIVES! Members of the community who have not yet received the COVID-19 vaccine and would like to receive it can visit one of [facility] vaccine clinics. There are many vaccine clinic locations within the [facility]. For locations and available times, please visit [email or web address] It is important to note that some COVID mobile vaccine clinics are held outdoors and may be canceled in rainy or stormy conditions. To learn more about pediatric vaccinations (ages 5-11), we invite you to visit the [facility] webpage. [email or web address] learn more about the COVID-19 vaccine, we invite you to visit the CDC website for a list of frequently asked questions.https://www.cdc.gov/coronavirus/2019-ncov/vaccines/faq.html [facility] Access Instructions: Stay connected with your healthcare team and access your personal medical information anytime with the [facility]. Please follow the directions below to create your [facility] account: 1.Access the email account you provided upon registration to the hospital/physician office.2.Look for an invitation email from [facility].3.Open the email and access the invitation link: AcceptInvitation to [facility].4.Fill in the required bang to create your account. To access your account, visit [email or web address]. Click the blue button labeled Access Patient Portal and then log in with the username and password that you created in the steps above. You will be able to view your test results, lab results, a summary of your visits, upcoming appointments and more. There is also a convenient messaging option where you can send secure messages to your p [employer]. In addition, you will have the ability to download any documents or summaries to your computer and/or send the information securely to a physician. Remember that your healthcare information is confidential, so carefully consider who you will allowto register on the [facility] Portal for access to your information. You can also access the [facility] Patient Portal on the [facility] [facility]. Simply click on Patient Portal and then log into your account. If you would like to receive a full copy of your medical records, please contact the [facility] Medical Records Department by calling [phone], Monday through Monday between 8 a.m. and 4:30 p.m. HOW TO SAFELY DISPOSE OF PRESCRIPTION MEDICATIONS Please use one of the following methods to safely dispose of your unused medications. 1.Use a drug disposal kit: the drug disposal pouch allows you to safely discard your old and unuseddrugs. Ask your nurse to give you one when you are discharged.2.Visit a local take-back location: Many local pharmacies and police departments have programs that collect old and unwanted prescriptiondrugs. Call your local pharmacy or go to [email or web address] LaGoon/[email or web address] to find one close to you.3.Make use of household items: Use cat litter or old coffee grounds to dispose medications if other options arenot available. Mix your drugs with these household products, seal them in an airtight container andthrow it into the garbage. Call [facility]: [phone] to be sure your drugs can be disposed of in this way. Some medicines may require a different approach.4.Never flush your medications down the toilet. IF YOU HAVE BEEN PRESCRIBED AN OPIOID FOR PAIN If you have been prescribed an opioid (such as hydrocodone, oxycodone or morphine), it is critical to understand the possible side effects and risks of opioid pain medications. Even when taken as directed, opioids can have several side effects including: Tolerance, meaning you might need to take more of a medication for the same pain relief. Nausea, vomiting and/or constipation. Sleepiness, dizziness, dry mouth, confusion, depression or itching. Physical dependence, meaning you have withdrawal symptoms when a medication is stopped, can develop within a few days. KNOW YOUR RESPONSIBILITIES It is important to know exactly how much and how often to take the opioid pain medications you are prescribed. Never take opioids in higher amounts or more often than prescribed. Do not combine opioids with alcohol or other drugs that cause drowsiness, such as benzodiazepines, also known as benzos, including diazepam and alprazolam, muscle relaxants or sleep aids. Never sell or share prescription opioids. This is illegal. Store opioids in a secure place and out of reach of others (including children, family, friends and visitors). The last page of this document has been signed and retained as a CHART COPY. Signatures Patient Education Materials Medication Leaflets My discharge plan and instructions have been reviewed and explained to me and IRUSSELL JEFFREY Runderstand my current condition and have read and understand these discharge instructions. I have received a written copy of the plan/instructions. If I have questions, I am aware that I should contact my doctor. 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 The following is importantdischarge information regarding your hospital visit. Your Care Team STACEY COULTER MD What to do next Scheduled Follow-Up Appointments Appointment Type When Where Contact Information StatusCV OV 10/11/2023 02:30 PM EDT [facility] Confirmed Follow Up Appointments Follow Up with Discharge to TIFFANY Gutierrez When:Within 1-2 days Follow Up with [facility] When:Within 3-7 days Where:[address] [place] [id number]- Additional Information: back wound Follow Up with [facility] Where:[address] [place] [address]- Additional Information: The cardiac rehab department will contact you in 1-2 weeks to schedule phase 2. Information was given about cardiac rehab. If you have questions please call [phone]. Follow Up with STACEY COULTER MD, Internal Medicine When:Within 1-2 days Where:[address] [place] [address]- Follow Up with SHANTAL INTERIANO MD When:10/11/2023 02:30 PM EDT Where:[address] [place] [address]- [phone] The Following Activity and Diet Have Been Ordered for You Discharge Activity - Ordered -- Lifting Restricted less than 10 pounds, x 2 weeks, 09/29/23 14:41:00 EDT Discharge Diet - Ordered -- Type of Diet: Cardiac, 09/29/23 14:41:00 EDT The Following Equipment Has Been Ordered for You No qualifying data available. 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 Other Therapies No qualifying data available. Post Acute Orders No qualifying data available. Someone Will Contact You Regarding These Home Health Referrals No home referrals have been ordered for you. No one will call you. Allergies fentaNYL (Moderate) nausea, vomiting HYDROcodone Bitartrate Unknown Haldol Unknown acetaminophen Unknown ibuprofen affects kidneys Medications Please ask your primary doctor or pharmacist before taking any other medication not listed, including over the counter drugs, herbal medications, vitamins and or supplements as they may interact withyour home medications. What How Much When Instructions Last Dose New aspirin ([employer] Aspirin 81 mg oral tablet, (chewable)) 1 tab(s) by mouth Once a day with a meal Duration: 180 Days Refills: 2 Pickup at [facility] New clopidogrel (Plavix 75 mg oral tablet) 1 tab(s) by mouth Once a day Duration: 180 Days Refills: 2 Pickup at [facility] New predniSONE (predniSONE 10 mg oral tablet) 4 tab(s) by mouth Once a day Duration: 5 Days Take with food Pickup at [facility] Changed pantoprazole (pantoprazole 40 mg oral enteric coated tablet) 1 tab(s) by mouth Once a day (in the morning) Changed pantoprazole (Protonix 40 mg oral enteric coated tablet) 1 tab(s) by mouth Once a day Pickup at [facility] Unchanged albuterol-ipratropium (albuterol-ipratropium 2.5 mg-0.5 mg/ 3 mL inhalation solution) 3 Milliliter by inhalation Every 6 hours Unchanged amLODIPine (amLODIPine 10 mg oral tablet) 1 tab(s) by mouth Once a day Unchanged ascorbic acid (ascorbic acid 500 mg oral capsule) 1 cap by mouth Once a day Unchanged bismuth subsalicylate (Pepto-Bismol Diarrhea 525 mg/ 10 mL oral suspension) 30 Milliliter by mouth Every hour as needed for Indigestion Unchanged carvedilol (carvedilol 25 mg oral tablet) 2 tab(s) by mouth Two (2) times a day Unchanged cholecalciferol (Vitamin D3 125 mcg (5000 intl units) oral capsule) 1 cap by mouth Once a day with food Unchanged cloNIDine (cloNIDine 0.3 mg oral tablet) 1 tab(s) by mouth Three (3) times a day Unchanged cyclobenzaprine (cyclobenzaprine 10 mg oral tablet) 1 tab(s) by mouth Four (4) times a day as needed for as needed for spasm Unchanged dapagliflozin (Farxiga 10 mg oral tablet) 1 tab(s) by mouth Once a day Unchanged docusate (docusate sodium 100 mg oral tablet) 1 tab(s) by mouth Once a day Unchanged doxycycline (doxycycline hyclate 100 mg oral tablet) 1 tab(s) by mouth Two (2) times a day Unchanged dulaglutide (Trulicity Pen 1.5 mg/ 0.5 mL subcutaneous solution) 0.5 Milliliter Subcutaneous Every Monday Unchanged DULoxetine (DULoxetine 30 mg oral delayed release capsule) 1 cap by mouth Two (2) times a day do not crush or chew Unchanged finasteride (finasteride 5 mg oral tablet) 1 tab(s) by mouth Once a day Unchanged fluticasone nasal (fluticasone proprionate NASAL 50 mcg/ spray) 1 spray(s) each nostril Two (2) times a day Unchanged gabapentin (gabapentin 800 mg oral tablet) 1 tab(s) by mouth Three (3) times a day Unchanged gemfibrozil (gemfibrozil 600 mg oral tablet) 1 tab(s) by mouth Two (2) times a day Unchanged glucagon (glucagon 1 mg injection) 1 Each Subcutaneous As Directed as needed for for low blood sugar Unchanged hydrALAZINE (hydrALAZINE 100 mg oral tablet) 1 tab(s) by mouth Three (3) times a day Unchanged insulin aspart (Novolog) (NovoLOG 100 units/ mL injectable solution) See instructions before meals and hs Unchanged insulin regular (HumuLIN R KwikPEN (CONCENTRATED) insulin 500 units/ mL 3 mL) 105 unit(s) Subcutaneous (INT) Daily before lunch SEE LONGTERM MED LIST, ON LIST X3 NO INSTRUCTIONS ON TIME OF DOSE Unchanged insulin regular (HumuLIN R KwikPEN (CONCENTRATED) insulin 500 units/ mL 3 mL) 125 unit(s) Subcutaneous (INT) Daily before supper Unchanged insulin regular (HumuLIN R KwikPEN (CONCENTRATED) insulin 500 units/ mL 3 mL) 115 unit(s) Subcutaneous (INT) Before breakfast Unchanged isosorbide mononitrate (isosorbide mononitrate 60 mg oral tablet, extended release) 1 tab(s) by mouth Once a day Unchanged levETIRAcetam (Keppra 500 mg oral tablet) 1 tab(s) by mouth Two (2) times a day Unchanged loperamide (loperamide 2 mg oral capsule) 1 cap by mouth Every 4 hours as needed for for loose stool Unchanged melatonin (melatonin 3 mg oral tablet) 1 tab(s) by mouth Daily at bedtime as needed for as needed for insomnia Unchanged menthol topical (Biofreeze 4% topical gel) 1 application Topical Three (3) times a day as needed for as needed for pain Unchanged mirtazapine (mirtazapine 7.5 mg oral tablet) 1 tab(s) by mouth Daily at bedtime Unchanged ondansetron (ondansetron 4 mg oral tablet) 1 tab(s) by mouth Every 8 hours as needed for Nausea/Vomiting Unchanged oxyCODONE (oxyCODONE 10 mg oral tablet ( IMMEDIATE release )) 1 tab(s) by mouth Three (3) times a day with meals as needed for as needed for pain Unchanged polyethylene glycol 3350 (MiraLax oral powder for reconstitution) 17 gram(s) by mouth Once a day as needed for Constipation Unchanged rosuvastatin (rosuvastatin 40 mg oral tablet) 1 tab(s) by mouth Once a day Unchanged sertraline (sertraline 100 mg oral tablet) 1 tab(s) by mouth Once a day Unchanged sucralfate (Carafate 1 g oral tablet) 1 tab(s) by mouth Four (4) times a day Unchanged tamsulosin (tamsulosin 0.4 mg oral capsule) 1 cap by mouth Two (2) times a day Unchanged traZODone (traZODone 300 mg oral tablet) 1 tab(s) by mouth Daily at bedtime Pharmacy Information [facility] [place]: [address] [place] [address] [phone] What How Much When Comments Stop Taking furosemide (furosemide 40 mg oral tablet) 1 tab(s) by mouth Monday / Monday / Monday BID Stop Taking furosemide (furosemide 40 mg oral tablet) 1 tab(s) by mouth Every Sun / / / Sat QD Stop Taking losartan (losartan 100 mg oral tablet) 1 tab(s) by mouth Once a day Please take this list to your next doctor s visit. Bring all medications you take, including over the counter medications, herbals and other supplements with you to your doctor s visit. Patients and families are reminded to discard old lists and to update any records with all medication providers or retail pharmacies. Additional Information VACCINATE! IT SAVES LIVES! Members of the community who have not yet received the COVID-19 vaccine and would like to receive it can visit one of [facility] vaccine clinics. There are many vaccine clinic locations within the [facility]. For locations and available times, please visit [email or web address].[place].[email or web address] It is important to note that some COVID mobile vaccine clinics are held outdoors and may be canceled in rainy or stormy conditions. To learn more about pediatric vaccinations (ages 5-11), we invite you to visit the [facility] webpage. [email or web address] learn more about the COVID-19 vaccine, we invite you to visit the CDC website for a list of frequently asked questions.https://www.cdc.gov/coronavirus/2019-ncov/vaccines/faq.html [facility] Patient Portal Access Instructions: Stay connected with your healthcare team and access your personal medical information anytime with the [facility] Patient Portal. Please follow the directions below to create your [facility] account: 1.Access the email account you provided upon registration to the hospital/physician office.2.Look for an invitation email from [facility].3.Open the email and access the invitation link: AcceptInvitation to [facility].4.Fill in the required bang to create your account. To access your account, visit [facility]. Click the blue button labeled Access Patient Portal and then log in with the username and password that you created in the steps above. You will be able to view your test results, lab results, a summary of your visits, upcoming appointments and more. There is also a convenient messaging option where you can send secure messages to your p rovider. In addition, you will have the ability to download any documents or summaries to your computer and/or send the information securely to a physician. Remember that your healthcare information is confidential, so carefully consider who you will allowto register on the [facility] Patient Portal for access to your information. You can also access the [facility] Patient Portal on the [facility] nur[facility]. Simply click on Patient Portal and then log into your account. If you would like to receive a full copy of your medical records, please contact the [facility] Medical Records Department by calling [phone], Monday through Monday between 8 a.m. and 4:30 p.m. HOW TO SAFELY DISPOSE OF PRESCRIPTION MEDICATIONS Please use one of the following methods to safely dispose of your unused medications. 1.Use a drug disposal kit: the drug disposal pouch allows you to safely discard your old and unuseddrugs. Ask your nurse to give you one when you are discharged.2.Visit a local take-back location: Many local pharmacies and police departments have programs that collect old and unwanted prescriptiondrugs. Call your local pharmacy or go to http://[employer]/4K5Fs5c to find one close to you.3.Make use of household items: Use cat litter or old coffee grounds to dispose medications if other options arenot available. Mix your drugs with these household products, seal them in an airtight container andthrow it into the garbage. Call [facility]: [phone] to be sure your drugs can be disposed of in this way. Some medicines may require a different approach.4.Never flush your medications down the toilet. IF YOU HAVE BEEN PRESCRIBED AN OPIOID FOR PAIN If you have been prescribed an opioid (such as hydrocodone, oxycodone or morphine), it is critical to understand the possible side effects and risks of opioid pain medications. Even when taken as directed, opioids can have several side effects including: Tolerance, meaning you might need to take more of a medication for the same pain relief. Nausea, vomiting and/or constipation. Sleepiness, dizziness, dry mouth, confusion, depression or itching. Physical dependence, meaning you have withdrawal symptoms when a medication is stopped, can develop within a few days. KNOW YOUR RESPONSIBILITIES It is important to know exactly how much and how often to take the opioid pain medications you are prescribed. Never take opioids in higher amounts or more often than prescribed. Do not combine opioids with alcohol or other drugs that cause drowsiness, such as benzodiazepines, also known as benzos, including diazepam and alprazolam, muscle relaxants or sleep aids. Never sell or share prescription opioids. This is illegal. Store opioids in a secure place and out of reach of others (including children, family, friends and visitors). The last page of this document has been signed and retained as a CHART COPY. Signatures Patient Education Materials Medication Leaflets My discharge plan and instructions have been reviewed and explained to me and I,CHITO WELLS my current condition and have read and understand these discharge instructions. I have received a written copy of the plan/instructions. If I have questions, I am aware that I should contact my doctor. 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 Signature: Date/Time: Relationship to Patient: Witness Name/Signature: Date/Time: [id number] Discharge summary Date of Service September 29, 2023 Discharge Diagnosis Unstable angina status post PCI to RCA 09/27/23 CAD, prior stent to proximal LCx, IMPLEMENTATION SPECIALIST PAYROLL of mid LCx, collateral flow from distal LAD to distal LCx TK on CKD baseline appears to be 1.5, contrast induced nephropathy Hypertension Hyperlipidemia Hospital Course Patient presented as an elective outpatient cath, required anesthesia due to severe back pain and to undergo cath. Patient had 90% stenosis in the proximal RCA which was successfully stented. Patientdoes have a IMPLEMENTATION SPECIALIST PAYROLL in the mid left circumflex which was attempted to recanalize however then noted to be a IMPLEMENTATION SPECIALIST PAYROLL which had good collaterals from LAD hence this is being medically managed. Patient with diabetes and CKD, has been on 100 cc an hour for the last 24 hours however creatinine is still uptrending, nephrology consulted for contrast induced nephropathy, was monitored another 24 hrs, we discussed with nephrology that patient is having a lot of back pain (chronic but worsened while in hospital due to not having his fdc bed), we did cover for possible interstitial nephritis with 5 days of oral steroids, nephro ok with BMP in 5 days. Lasix and losartan have been discontinued until repeat BMP is obtained. Once BMP is reviewed, patient should be ok to be resumed on home lasix regimen and losartan. [facility] 09/27/2023 Procedures performed: Left heart catheterization. Left ventriculography. Left coronary angiography. Right coronary angiography. Percutaneous intervention on the 90% stenosis in the proximal right coronary. Stent placement. SUMMARY: 1. 1st lesion: Stent placement was performed. A 3.5 mm (D) x 28 mm (L), Synergy XD stent was used. The stent was advanced across the lesion and deployed with four inflations and a maximum pressure of 20 fanny. 2. Left ventricle: Systolic function is normal. The estimated ejection fraction is 65-70%. Wall motion is normal; there are no regional wall motion abnormalities. 3. Left circumflex: Mid-vessel lesion: There is a chronic total occlusion. 4. Right coronary: Proximal vessel lesion: The diagnostic study demonstrated a tubular, 20 mm (L), 90% stenosis. The distal vessel supplies a large vascular territory. The lesion is a likely culprit for the patient'sanginal symptoms and clinical presentation. The lesion presents an ACC/AHA type C high risk lesion for intervention. Stent placement was performed, with balloon angioplasty, resulting in an excellent angiographic appearance (see 1st lesion). Following intervention, there is a residual 0% stenosis with SARAH grade 3 flow (brisk flow). IMPRESSIONS: 1. Acute coronary syndrome. Reperfusion was successfully achieved. 2. successful ptca/juan m of rca w/o co mplication iv aggrastat bolus plavix asa tr band post procedure. attempted to recannalize lcx but appears to be IMPLEMENTATION SPECIALIST PAYROLL does have good collaterals from lad. medical mx if fails could re attempt Allergies fentaNYL (Moderate) nausea, vomiting HYDROcodone Bitartrate Unknown Haldol Unknown acetaminophen Unknown ibuprofen affects kidneys Consults Consult to Physician - Ordered -- 09/28/23 10:33:00 EDTTATIANA DAYANAND MD, Routine, TK on ckd patient very eager to return to [place] please evaluate Consult to Physician - Ordered -- 09/28/23 15:04:00 EDTDEEDEE ANS MD, Routine, Other, pain management Consult to Physician - Ordered -- 09/28/23 15:05:00 EDT, KSENIA MARK MD, Routine, pain management Physical Exam Vitals and Measurements T: 36.5 C (Oral) TMIN: 36.4 C (Oral) TMAX: 36.7 C (Oral) HR: 67 (Monitored) RR: 18 BP: 130/82 SpO2:94% Weight Dosing Weight: 144.7 kg (09/27/23) Dosing Weight: 144.7 kg (09/26/23) Constitutional: Oriented to time, place, and person - well developed - well nourished Cardiovascular: JVD not elevated, S1 S2 present,No added sounds, no LE edema Abdomen: nontender Musculoskeletal system: general/bilateral Normal movement of all extremities Neurological: NFND. Skin: color and pigmentation is normal Code Status Code Status - Ordered -- 09/26/23 9:13:00 EDT, Full Code, Constant Order Code Status - Ordered -- 09/26/23 9:14:00 EDT, Full Code, Constant Order Admission Date 09/26/2023 Discharge Date 09/29/2023 Patient Instructions - Please follow up with your Primary Care Physician (PCP) as soon as possible. - Please follow-up with all specialists as documented below. - Please keep all follow-up appointments. - Please take all medications as prescribed. - Please return for medical care if your condition worsens or changes. Medications New Prescription aspirin ([employer] Aspirin 81 mg oral tablet, (chewable))1 tab(s) by mouth once a day with a meal for 180 Days. Refills: 2. clopidogrel (Plavix 75 mg oral tablet)1 tab(s) by mouth once a day for 180 Days. Refills: 2. predniSONE (predniSONE 10 mg oral tablet)4 tab(s) by mouth once a day for 5 Days. Take with food. Refills: 0. Changed pantoprazole (pantoprazole 40 mg oral enteric coated tablet)1 tab(s) by mouth once a day (in the morning). pantoprazole (Protonix 40 mg oral enteric coated tablet)1 tab(s) by mouth once a day. Refills: 0. Unchanged albuterol-ipratropium (albuterol-ipratropium 2.5 mg-0.5 mg/3 mL inhalation solution)3 Milliliter byinhalation every 6 hours. amLODIPine (amLODIPine 10 mg oral tablet)1 tab(s) by mouth once a day. ascorbic acid (ascorbic acid 500 mg oral capsule)1 cap by mouth once a day. bismuth subsalicylate (Pepto-Bismol Diarrhea 525 mg/10 mL oral suspension)30 Milliliter by mouth every hour as needed Indigestion. carvedilol (carvedilol 25 mg oral tablet)2 tab(s) by mouth two (2) times a day. cholecalciferol (Vitamin D3 125 mcg (5000 intl units) oral capsule)1 cap by mouth once a day. with food. cloNIDine (cloNIDine 0.3 mg oral tablet)1 tab(s) by mouth three (3) times a day. cyclobenzaprine (cyclobenzaprine 10 mg oral tablet)1 tab(s) by mouth four (4) times a day as neededas needed for spasm. dapagliflozin (Farxiga 10 mg oral tablet)1 tab(s) by mouth once a day. docusate (docusate sodium 100 mg oral tablet)1 tab(s) by mouth once a day. doxycycline (doxycycline hyclate 100 mg oral tablet)1 tab(s) by mouth two (2) times a day. dulaglutide (Trulicity Pen 1.5 mg/0.5 mL subcutaneous solution)0.5 Milliliter Subcutaneous every Monday. DULoxetine (DULoxetine 30 mg oral delayed release capsule)1 cap by mouth two (2) times a day. do not crush or chew. finasteride (finasteride 5 mg oral tablet)1 tab(s) by mouth once a day. fluticasone nasal (fluticasone proprionate NASAL 50 mcg/ spray)1 spray(s) each nostril two (2) times a day. gabapentin (gabapentin 800 mg oral tablet)1 tab(s) by mouth three (3) times a day. gemfibrozil (gemfibrozil 600 mg oral tablet)1 tab(s) by mouth two (2) times a day. glucagon (glucagon 1 mg injection)1 Each Subcutaneous As Directed as needed for low blood sugar. hydrALAZINE (hydrALAZINE 100 mg oral tablet)1 tab(s) by mouth three (3) times a day. insulin aspart (Novolog) (NovoLOG 100 units/mL injectable solution)before meals and hs. insulin regular (HumuLIN R KwikPEN (CONCENTRATED) insulin 500 units/mL 3 mL)105 unit(s) Subcutaneous (INT) daily before lunch. SEE LONGTERM MED LIST, ON LIST X3 NO INSTRUCTIONS ON TIME OF DOSE. insulin regular (HumuLIN R KwikPEN (CONCENTRATED) insulin 500 units/mL 3 mL)125 unit(s) Subcutaneous (INT) daily before supper. insulin regular (HumuLIN R KwikPEN (CONCENTRATED) insulin 500 units/mL 3 mL)115 unit(s) Subcutaneous (INT) before breakfast. isosorbide mononitrate (isosorbide mononitrate 60 mg oral tablet, extended release)1 tab(s) by mouth once a day. levETIRAcetam (Keppra 500 mg oral tablet)1 tab(s) by mouth two (2) times a day. loperamide (loperamide 2 mg oral capsule)1 cap by mouth every 4 hours as needed for loose stool. melatonin (melatonin 3 mg oral tablet)1 tab(s) by mouth daily at bedtime as needed as needed for insomnia. menthol topical (Biofreeze 4% topical gel)1 application Topical three (3) times a day as needed as needed for pain. mirtazapine (mirtazapine 7.5 mg oral tablet)1 tab(s) by mouth daily at bedtime. ondansetron (ondansetron 4 mg oral tablet)1 tab(s) by mouth every 8 hours as needed Nausea/Vomiting. oxyCODONE (oxyCODONE 10 mg oral tablet ( IMMEDIATE release ))1 tab(s) by mouth three (3) times a day with meals as needed as needed for pain. polyethylene glycol 3350 (MiraLax oral powder for reconstitution)17 gram(s) by mouth once a day as needed Constipation. rosuvastatin (rosuvastatin 40 mg oral tablet)1 tab(s) by mouth once a day. sertraline (sertraline 100 mg oral tablet)1 tab(s) by mouth once a day. sucralfate (Carafate 1 g oral tablet)1 tab(s) by mouth four (4) times a day. tamsulosin (tamsulosin 0.4 mg oral capsule)1 cap by mouth two (2) times a day. traZODone (traZODone 300 mg oral tablet)1 tab(s) by mouth daily at bedtime. Discontinued furosemide (furosemide 40 mg oral tablet)1 tab(s) by mouth Monday / Monday / Monday. BID. furosemide (furosemide 40 mg oral tablet)1 tab(s) by mouth every Sun / es / Thurs / Sat. QD. losartan (losartan 100 mg oral tablet)1 tab(s) by mouth once a day. Follow Up Follow Up with [facility] When:Within 3-7 days Where:[address] [place] [address]- Additional Information: back wound Follow Up with [facility] Where:[address] [place] [address]- Additional Information: The cardiac rehab department will contact you in 1-2 weeks to schedule phase 2. Information was given about cardiac rehab. If you have questions please call [phone]. Follow Up with STACEY COULTER MD, Internal Medicine When:Within 1-2 days Where:[address] [place] [address]- Follow Up with SHANTAL INTERIANO MD When:10/11/2023 02:30 PM EDT Where:[address] [facility] [place] [address]- [phone] Follow Up Appointments No qualifying data available. Follow Up Labs/Studies Discharge Labs Discharge Outpatient Labwork - Ordered -- bmp, renal function post cath, after 5 days of prednisone for intersitital nephritis, follow-up within: 3-5 days, Results Notify to: TOÑITO VELA MD, 09/29/23 14:40:00 EDT Discharge Studies No Follow-up Studies Discharge Diet Discharge Diet - Ordered -- Type of Diet: Cardiac, 09/29/23 14:41:00 EDT Discharge Activity Discharge Activity - Ordered -- Lifting Restricted less than 10 pounds, x 2 weeks, 09/29/23 14:41:00 EDT Condition on Discharge stable Discharge Disposition nursing facility Digitally Signed by NEO MURPHY MD on 09/29/2023 02:45 PM [id number] Cardiology Progress note Date of Service September 28, 2023 Subjective No acute complaints [facility] 09/27/2023 Procedures performed: Left heart catheterization. Left ventriculography. Left coronary angiography. Right coronary angiography. Percutaneous intervention on the 90% stenosis in the proximal right coronary. Stent placement. SUMMARY: 1. 1st lesion: Stent placement was performed. A 3.5 mm (D) x 28 mm (L), Synergy XD stent was used. The stent was advanced across the lesion and deployed with four inflations and a maximum pressure of 20 fanny. 2. Left ventricle: Systolic function is normal. The estimated ejection fraction is 65-70%. Wall motion is normal; there are no regional wall motion abnormalities. 3. Left circumflex: Mid-vessel lesion: There is a chronic total occlusion. 4. Right coronary: Proximal vessel lesion: The diagnostic study demonstrated a tubular, 20 mm (L), 90% stenosis. The distal vessel supplies a large vascular territory. The lesion is a likely culprit for the patient'sanginal symptoms and clinical presentation. The lesion presents an ACC/AHA type C high risk lesion for intervention. Stent placement was performed, with balloon angioplasty, resulting in an excellent angiographic appearance (see 1st lesion). Following intervention, there is a residual 0% stenosis with SARAH grade 3 flow (brisk flow). IMPRESSIONS: 1. Acute coronary syndrome. Reperfusion was successfully achieved. 2. successful ptca/juan m of rca w/o co mplication iv aggrastat bolus plavix asa tr band post procedure. attempted to recannalize lcx but appears to be IMPLEMENTATION SPECIALIST PAYROLL does have good collaterals from lad. medical mx if fails could re attempt Objective Vitals and Measurements T: 37.0 C (Oral) TMIN: 36.4 C (Oral) TMAX: 37.0 C (Oral) HR: 64 (Monitored) RR: 18 BP: 118/58 SpO2:93% HT: 177.8 cm WT: 144.7 kg BMI: 45.77 Intake and Output 7AM Yesterday to 7AM Today Intake and Output (Last 24 hours) Intake Oral Intake 3328.00 Administration Information 802.84 Output Urine Voided 1000.00 Intra-Op EBL 30.00 Stool Count 0.00 Urine Count 4.00 Total Summary Total Intake 4130.84 Total Output 1030.00 Fluid Balance 3100.84 Physical Exam Constitutional: Oriented to time, place, and person - well developed - well nourished Cardiovascular: JVD not elevated, S1 S2 present,No added sounds, no LE edema Abdomen: nontender Musculoskeletal system: general/bilateral Normal movement of all extremities Neurological: NFND. Skin: color and pigmentation is normal Weight Dosing Weight: 144.7 kg (09/27/23) Dosing Weight: 144.7 kg (09/26/23) Medications Medications (47) Active Scheduled: (26) amLODIPine 10 mg tablet 10 mg 1 tab(s), Oral, qDay aspirin 81 mg Chewable 81 mg 1 tab(s), Oral, qDayM carvedilol 25 mg tablet 50 mg 2 tab(s), Oral, BID cloNIDine 0.3 mg tablet 0.3 mg 1 tab(s), Oral, TID clopidogrel 75 mg Tablet 75 mg 1 tab(s), Oral, qDay dapagliflozin 10 mg tablet 10 mg 1 tab(s), Oral, qDay docusate sodium 100 mg Capsule 100 mg 1 cap(s), Oral, qDay doxycycline hyclate 100 mg Capsule 100 mg 1 cap(s), Oral, BID duloxetine [address] capsule 30 mg 1 cap(s), Oral, BID finasteride 5 mg tablet 5 mg 1 tab(s), Oral, qDay fluticasone nasal 0.05 mg/inh Goodyear 50 mcg 1 spray(s), Nostril, each, BID gabapentin 400 mg capsule 800 mg 2 cap(s), Oral, TID gemfibrozil 600 mg tablet 600 mg 1 tab(s), Oral, BID hydralazine 50 mg Tablet 100 mg 2 tab(s), Oral, TID insulin lispro 100 units/mL Soln (3 mL) Give 0-15 units/dose, Subcutaneous, TIDAC insulin R 500units/mL Concentrated 105 unit(s) 0.21 mL, Subcutaneous (INT), acLunch insulin R 500units/mL Concentrated 125 unit(s) 0.25 mL, Subcutaneous (INT), acSupper insulin R 500units/mL Concentrated 115 unit(s) 0.23 mL, Subcutaneous (INT), acBreakfast isosorbide mononitrate 60 mg ER tablet 60 mg 1 tab(s), Oral, qDay levETIRAcetam 500 mg tablet 500 mg 1 tab(s), Oral, BID mirtazapine 7.5 mg tablet 7.5 mg 1 tab(s), Oral, qHS No metformin for 48 hrs post contrast 1 EA, Miscellaneous, Unscheduled sertraline 100 mg tablet 100 mg 1 tab(s), Oral, qDay sucralfate 1 gm tablet 1 gram(s) 1 tab(s), Oral, QID tamsulosin 0.4 mg Capsule 0.4 mg 1 cap(s), Oral, BID traZODONE 150 mg Tablet 300 mg 2 tab(s), Oral, qHS Continuous: (1) NS (0.9% nacl) 1,000 mL 1,000 mL, Intravenous, 100 mL/hr PRN: (20) albuterol - ipratropium 2.5 mg-0.5 mg/3 mL Inhal Corrine UD 3 mL, Inhalation, q4hRT atropine 0.4 mg/ml 1 mL vial 0.4 mg 1 mL, IV Push, AsDirected dextrose 50% Solution Disp syringe 50 mL 12.5 gram(s) 25 mL, IV Push, AsDirected dextrose 50% Solution Disp syringe 50 mL 12.5 gram(s) 25 mL, IV Push, AsDirected fentaNYL 50 mcg/mL (2mL) ampule 25 mcg 0.5 mL, IV Push, q5min glucagon recombinant 1 mg 1 mg 1 mL, Subcutaneous, AsDirected hydromorphone 1 mg/mL (1mL) INJ 1 mg 1 mL, IV Push, q2h LORAZEPam 0.5 mg tablet 0.5 mg 1 tab(s), Oral, q4h LORAZEPam 0.5 mg tablet 0.5 mg 1 tab(s), Oral, q4h morphine 2 mg/mL 1 mL syringe 2 mg 1 mL, IV Push, q3h morphine 2 mg/mL 1 mL syringe 2 mg 1 mL, IV Push, q3h morphine 4 mg/mL 1mL INJ 4 mg 1 mL, IV Push, q3h morphine 4 mg/mL 1mL INJ 4 mg 1 mL, IV Push, q3h ondansetron 2 mg/ 1 mL 2 mL INJ 4 mg 2 mL, IV Push, q4h ondansetron 2 mg/ 1 mL 2 mL INJ 4 mg 2 mL, IV Push, q4h oxyCODONE 10 mg Tab (Immediate Release) 10 mg 1 tab(s), Oral, TIDM potassium chloride (PMX) 20 mEq/100 mL 20 mEq 100 mL, IV Piggyback, AsDirected potassium chloride 20 mEq ER tablet 20 mEq 1 tab(s), Oral, AsDirected potassium chloride 20 mEq ER tablet 40 mEq 2 tab(s), Oral, AsDirected potassium chloride 20 mEq ER tablet 40 mEq 2 tab(s), Oral, AsDirected Lab Results 09/27 07:42 Glucose Level: 137 H Sodium Level: 138 Potassium Level: 4.2 BUN: 42.0 H Creatinine Lvl (s): 2.60 H 09/27 03:34 WBC: 10.0 Hgb: 11.1 L Hct: 32.9 L Platelet: 129 L Neutrophil %: 81.2 H Glucose Level: 65 L Sodium Level: 139 Potassium Level: 4.0 BUN: 40.0 H Creatinine Lvl (s): 2.46 H 09/26 11:11 Creatinine Lvl (s): 1.66 H 09/26 02:58 WBC: 4.5 Hgb: 12.9 L Hct: 38.0 L Platelet: 122 L Neutrophil %: 64.5 Glucose Level: 181 H Sodium Level: 142 Potassium Level: 3.3 L BUN: 31.0 H Creatinine Lvl (s): 1.61 H EKG Electrocardiogram (EKG) - Ordered -- 09/27/23 9:47:00 EDT, Post-procedure, Complete by Nursing Electrocardiogram - InProcess -- 09/28/23 6:00:00 EDT, Complete by Nursing Electrocardiogram - Ordered -- 09/29/23 6:00:00 EDT, Complete by Nursing Assessment/Plan Unstable angina status post PCI to RCA CAD, prior stent to proximal LCx, IMPLEMENTATION SPECIALIST PAYROLL of mid LCx, collateral flow from distal LAD to distal LCx TK on CKD baseline appears to be 1.5 Hypertension Hyperlipidemia Patient presented as an elective outpatient cath, required anesthesia due to severe back pain and to undergo cath. Patient had 90% stenosis in the proximal RCA which was successfully stented. Patientdoes have a IMPLEMENTATION SPECIALIST PAYROLL in the mid left circumflex which was attempted to recanalize however then noted to be a IMPLEMENTATION SPECIALIST PAYROLL which had good collaterals from LAD hence this is being medically managed. Patient with diabetes and CKD, has been on 100 cc an hour for the last 24 hours however creatinine is still uptrending, will request nephrology for further evaluation. Patient is working to [facility] however he was instructed that he will need to stay in order to have his creatinine recover. Nephrology evaluation has been requested, patient has been started on IV steroids, possibly covering for interstitial nephritis. Of note, patient intermittently uses 2 L of nasal cannula at home, currently weaned down to room air. Digitally Signed by NEO MURPHY MD on 09/28/2023 07:10 PM [facility] [id number] Cardiology Progress note Date of Service September 28, 2023 Subjective No acute complaints [facility] 09/27/2023 Procedures performed: Left heart catheterization. Left ventriculography. Left coronary angiography. Right coronary angiography. Percutaneous intervention on the 90% stenosis in the proximal right coronary. Stent placement. SUMMARY: 1. 1st lesion: Stent placement was performed. A 3.5 mm (D) x 28 mm (L), Synergy XD stent was used. The stent was advanced across the lesion and deployed with four inflations and a maximum pressure of 20 fanny. 2. Left ventricle: Systolic function is normal. The estimated ejection fraction is 65-70%. Wall motion is normal; there are no regional wall motion abnormalities. 3. Left circumflex: Mid-vessel lesion: There is a chronic total occlusion. 4. Right coronary: Proximal vessel lesion: The diagnostic study demonstrated a tubular, 20 mm (L), 90% stenosis. The distal vessel supplies a large vascular territory. The lesion is a likely culprit for the patient'sanginal symptoms and clinical presentation. The lesion presents an ACC/AHA type C high risk lesion for intervention. Stent placement was performed, with balloon angioplasty, resulting in an excellent angiographic appearance (see 1st lesion). Following intervention, there is a residual 0% stenosis with SARAH grade 3 flow (brisk flow). IMPRESSIONS: 1. Acute coronary syndrome. Reperfusion was successfully achieved. 2. successful ptca/juan m of rca w/o co mplication iv aggrastat bolus plavix asa tr band post procedure. attempted to recannalize lcx but appears to be IMPLEMENTATION SPECIALIST PAYROLL does have good collaterals from lad. medical mx if fails could re attempt Objective Vitals and Measurements T: 37.0 C (Oral) TMIN: 36.4 C (Oral) TMAX: 37.0 C (Oral) HR: 64 (Monitored) RR: 18 BP: 118/58 SpO2:93% HT: 177.8 cm WT: 144.7 kg BMI: 45.77 Intake and Output 7AM Yesterday to 7AM Today Intake and Output (Last 24 hours) Intake Oral Intake 3328.00 Administration Information 802.84 Output Urine Voided 1000.00 Intra-Op EBL 30.00 Stool Count 0.00 Urine Count 4.00 Total Summary Total Intake 4130.84 Total Output 1030.00 Fluid Balance 3100.84 Physical Exam Constitutional: Oriented to time, place, and person - well developed - well nourished Cardiovascular: JVD not elevated, S1 S2 present,No added sounds, no LE edema Abdomen: nontender Musculoskeletal system: general/bilateral Normal movement of all extremities Neurological: NFND. Skin: color and pigmentation is normal Weight Dosing Weight: 144.7 kg (09/27/23) Dosing Weight: 144.7 kg (09/26/23) Medications Medications (47) Active Scheduled: (26) amLODIPine 10 mg tablet 10 mg 1 tab(s), Oral, qDay aspirin 81 mg Chewable 81 mg 1 tab(s), Oral, qDayM carvedilol 25 mg tablet 50 mg 2 tab(s), Oral, BID cloNIDine 0.3 mg tablet 0.3 mg 1 tab(s), Oral, TID clopidogrel 75 mg Tablet 75 mg 1 tab(s), Oral, qDay dapagliflozin 10 mg tablet 10 mg 1 tab(s), Oral, qDay docusate sodium 100 mg Capsule 100 mg 1 cap(s), Oral, qDay doxycycline hyclate 100 mg Capsule 100 mg 1 cap(s), Oral, BID duloxetine [address] capsule 30 mg 1 cap(s), Oral, BID finasteride 5 mg tablet 5 mg 1 tab(s), Oral, qDay fluticasone nasal 0.05 mg/inh Goodyear 50 mcg 1 spray(s), Nostril, each, BID gabapentin 400 mg capsule 800 mg 2 cap(s), Oral, TID gemfibrozil 600 mg tablet 600 mg 1 tab(s), Oral, BID hydralazine 50 mg Tablet 100 mg 2 tab(s), Oral, TID insulin lispro 100 units/mL Soln (3 mL) Give 0-15 units/dose, Subcutaneous, TIDAC insulin R 500units/mL Concentrated 105 unit(s) 0.21 mL, Subcutaneous (INT), acLunch insulin R 500units/mL Concentrated 125 unit(s) 0.25 mL, Subcutaneous (INT), acSupper insulin R 500units/mL Concentrated 115 unit(s) 0.23 mL, Subcutaneous (INT), acBreakfast isosorbide mononitrate 60 mg ER tablet 60 mg 1 tab(s), Oral, qDay levETIRAcetam 500 mg tablet 500 mg 1 tab(s), Oral, BID mirtazapine 7.5 mg tablet 7.5 mg 1 tab(s), Oral, qHS No metformin for 48 hrs post contrast 1 EA, Miscellaneous, Unscheduled sertraline 100 mg tablet 100 mg 1 tab(s), Oral, qDay sucralfate 1 gm tablet 1 gram(s) 1 tab(s), Oral, QID tamsulosin 0.4 mg Capsule 0.4 mg 1 cap(s), Oral, BID traZODONE 150 mg Tablet 300 mg 2 tab(s), Oral, qHS Continuous: (1) NS (0.9% nacl) 1,000 mL 1,000 mL, Intravenous, 100 mL/hr PRN: (20) albuterol - ipratropium 2.5 mg-0.5 mg/3 mL Inhal Corrine UD 3 mL, Inhalation, q4hRT atropine 0.4 mg/ml 1 mL vial 0.4 mg 1 mL, IV Push, AsDirected dextrose 50% Solution Disp syringe 50 mL 12.5 gram(s) 25 mL, IV Push, AsDirected dextrose 50% Solution Disp syringe 50 mL 12.5 gram(s) 25 mL, IV Push, AsDirected fentaNYL 50 mcg/mL (2mL) ampule 25 mcg 0.5 mL, IV Push, q5min glucagon recombinant 1 mg 1 mg 1 mL, Subcutaneous, AsDirected hydromorphone 1 mg/mL (1mL) INJ 1 mg 1 mL, IV Push, q2h LORAZEPam 0.5 mg tablet 0.5 mg 1 tab(s), Oral, q4h LORAZEPam 0.5 mg tablet 0.5 mg 1 tab(s), Oral, q4h morphine 2 mg/mL 1 mL syringe 2 mg 1 mL, IV Push, q3h morphine 2 mg/mL 1 mL syringe 2 mg 1 mL, IV Push, q3h morphine 4 mg/mL 1mL INJ 4 mg 1 mL, IV Push, q3h morphine 4 mg/mL 1mL INJ 4 mg 1 mL, IV Push, q3h ondansetron 2 mg/ 1 mL 2 mL INJ 4 mg 2 mL, IV Push, q4h ondansetron 2 mg/ 1 mL 2 mL INJ 4 mg 2 mL, IV Push, q4h oxyCODONE 10 mg Tab (Immediate Release) 10 mg 1 tab(s), Oral, TIDM potassium chloride (PMX) 20 mEq/100 mL 20 mEq 100 mL, IV Piggyback, AsDirected potassium chloride 20 mEq ER tablet 20 mEq 1 tab(s), Oral, AsDirected potassium chloride 20 mEq ER tablet 40 mEq 2 tab(s), Oral, AsDirected potassium chloride 20 mEq ER tablet 40 mEq 2 tab(s), Oral, AsDirected Lab Results 09/27 07:42 Glucose Level: 137 H Sodium Level: 138 Potassium Level: 4.2 BUN: 42.0 H Creatinine Lvl (s): 2.60 H 09/27 03:34 WBC: 10.0 Hgb: 11.1 L Hct: 32.9 L Platelet: 129 L Neutrophil %: 81.2 H Glucose Level: 65 L Sodium Level: 139 Potassium Level: 4.0 BUN: 40.0 H Creatinine Lvl (s): 2.46 H 09/26 11:11 Creatinine Lvl (s): 1.66 H 09/26 02:58 WBC: 4.5 Hgb: 12.9 L Hct: 38.0 L Platelet: 122 L Neutrophil %: 64.5 Glucose Level: 181 H Sodium Level: 142 Potassium Level: 3.3 L BUN: 31.0 H Creatinine Lvl (s): 1.61 H EKG Electrocardiogram (EKG) - Ordered -- 09/27/23 9:47:00 EDT, Post-procedure, Complete by Nursing Electrocardiogram - InProcess -- 09/28/23 6:00:00 EDT, Complete by Nursing Electrocardiogram - Ordered -- 09/29/23 6:00:00 EDT, Complete by Nursing Assessment/Plan Unstable angina status post PCI to RCA CAD, prior stent to proximal LCx, IMPLEMENTATION SPECIALIST PAYROLL of mid LCx, collateral flow from distal LAD to distal LCx TK on CKD baseline appears to be 1.5 Hypertension Hyperlipidemia Patient presented as an elective outpatient cath, required anesthesia due to severe back pain and to undergo cath. Patient had 90% stenosis in the proximal RCA which was successfully stented. Patientdoes have a IMPLEMENTATION SPECIALIST PAYROLL in the mid left circumflex which was attempted to recanalize however then noted to be a IMPLEMENTATION SPECIALIST PAYROLL which had good collaterals from LAD hence this is being medically managed. Patient with diabetes and CKD, has been on 100 cc an hour for the last 24 hours however creatinine is still uptrending, will request nephrology for further evaluation. Patient is [facility] however he was instructed that he will need to stay in order to have his creatinine recover. Nephrology evaluation has been requested, patient has been started on IV steroids, possibly covering for interstitial nephritis. Of note, patient intermittently uses 2 L of nasal cannula at home, currently weaned down to room air. Digitally Signed by NEO MURPHY MD on 09/28/2023 07:10 PM [facility] [id number] Note [place] [facility] MedicineCons[facility] Code Status: Full Code Chief Complaint Back pain, chest pain History of present illness: 57 yo male with PMhx significant for CAD, prior stenting, TK on CKD, HTN, HLD who was admitted on 09/26/2023 secondary to unstable angina and underwent PCI by cardiology with PCI to RCA. Currently with TK on CKD and awaiting nephrology evaluation. Hospitalist consulted given patient with chronic longstanding back pain secondary to multiple back surgeries, prior infection requiring removal of hardware and chronic pain secondary to these factors. Hospitalist consulted for pain medication adjustment. Patient evaluated at bedside. Denies any current chest pain. States his back pain is longstanding for decades at this time. States it was worsened and exacerbated secondary to current hospital bed aswell as cath table. States bedside chair isnt what he is used to either and seems to be flaring up his back pain. States he has been in and out of nursing facility and very familiar with transition to hospital and back. States his pain medications are always an issue when he is admitted. States he has been on oxycodone 10 mg around Q6H (8-2-8-2) dosing interval for over a decade at this time. States he is very aware his back pain will remain and is chronic. Past medical history:Hypertensive heart disease with HF (heart failure) ED Care Plan Anxiety 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 BPH with obstruction/lower urinary tract symptoms Benign prostatic hyperplasia CHF - Congestive heart failure COPD - Chronic obstructive pulmonary disease Cerebral infarction Chronic diastolic heart failure Chronic kidney disease Chronic pain Constipation Depression GERD - Gastro-esophageal reflux disease Hereditary and idiopathic neuropathy, unspecified History of transient ischemic attack and cerebral infarction Hyperkalemia Hyperlipidemia Hypertension Hypertriglyceridemia Hypokalemia Insomnia 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, intractable, without status epilepticus 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 Neuropathy OCD - Obsessive-compulsive disorder Old [place] (myocardial infarction) Osteomyelitis Peripheral vascular disease Presence of coronary angioplasty implant and graft Presence of right artificial knee joint Seasonal allergy Seizure disorder Severe obesity Suicide Tobacco user Transient ischemic attack Type 2 diabetes mellitus Past surgical history: Knee replacement Angioplasty of arterial graft Spinal fusion Back Family history: Mother: Cancer; Heart disease Father: Cancer; Heart disease Sister: Cancer Social history:Social & Psychosocial Habits Alcohol 09/26/2023 Use: Never Substance Abuse 09/26/2023 Use: Never Tobacco 09/26/2023 Tobacco Use: 5-9 cigarettes (between 1 Type: Cigarettes Tobacco use per day: 5 Number of years: 40 Home/Environment 09/26/2023 Living situation: Extended Care Facility Special Services and Community Resources None Marital Status of Patient if Patient Independent Adult: Unmarried Nutrition/Health 09/26/2023 Type of diet: Diabetic Caffeine intake amount: 6 pk a day Appetite Excellent Eating Difficulties None Sexual 09/26/2023 Self described orientation: Straight or heterosexual Home Medications (41) Active albuterol-ipratropium 2.5 mg-0.5 mg/3 mL inhalation solution 3 mL, Inhalation, q6hr amLODIPine 10 mg oral tablet 10 mg = 1 tab(s), Oral, qDay ascorbic acid 500 mg oral capsule 500 mg = 1 cap(s), Oral, qDay Biofreeze 4% topical gel 1 nurys, PRN, Topical, TID Carafate 1 g oral tablet 1 gram(s) = 1 tab(s), Oral, QID carvedilol 25 mg oral tablet 50 mg = 2 tab(s), Oral, BID cloNIDine 0.3 mg oral tablet 0.3 mg = 1 tab(s), Oral, TID cyclobenzaprine 10 mg oral tablet 10 mg = 1 tab(s), PRN, Oral, QID docusate sodium 100 mg oral tablet 100 mg = 1 tab(s), Oral, qDay doxycycline hyclate 100 mg oral tablet 100 mg = 1 tab(s), Oral, BID DULoxetine 30 mg oral delayed release capsule 30 mg = 1 cap(s), Oral, BID Farxiga 10 mg oral tablet 10 mg = 1 tab(s), Oral, qDay finasteride 5 mg oral tablet 5 mg = 1 tab(s), Oral, qDay fluticasone proprionate NASAL 50 mcg/ spray 1 spray(s), Nostril, each, BID furosemide 40 mg oral tablet 40 mg = 1 tab(s), Oral, Sun///Sat furosemide 40 mg oral tablet 40 mg = 1 tab(s), Oral, Mon/Mon/Mon gabapentin 800 mg oral tablet 800 mg = 1 tab(s), Oral, TID gemfibrozil 600 mg oral tablet 600 mg = 1 tab(s), Oral, BID glucagon 1 mg injection 1 mg = 1 EA, PRN, Subcutaneous, AsDirected HumuLIN R KwikPEN (CONCENTRATED) insulin 500 units/mL 3 mL 105 unit(s), Subcutaneous-INT, acLunch HumuLIN R KwikPEN (CONCENTRATED) insulin 500 units/mL 3 mL 125 unit(s), Subcutaneous (INT), acSupper HumuLIN R KwikPEN (CONCENTRATED) insulin 500 units/mL 3 mL 115 unit(s), Subcutaneous (INT), acBreakfast hydrALAZINE 100 mg oral tablet 100 mg = 1 tab(s), Oral, TID isosorbide mononitrate 60 mg oral tablet, extended release 60 mg = 1 tab(s), Oral, qDay Keppra 500 mg oral tablet 500 mg = 1 tab(s), Oral, BID loperamide 2 mg oral capsule 2 mg = 1 cap(s), PRN, Oral, q4h losartan 100 mg oral tablet 100 mg = 1 tab(s), Oral, qDay melatonin 3 mg oral tablet 3 mg = 1 tab(s), PRN, Oral, qHS MiraLax oral powder for reconstitution 17 gram(s), PRN, Oral, qDay mirtazapine 7.5 mg oral tablet 7.5 mg = 1 tab(s), Oral, qHS NovoLOG 100 units/mL injectable solution See Instructions ondansetron 4 mg oral tablet 4 mg = 1 tab(s), PRN, Oral, q8h oxyCODONE 10 mg oral tablet ( IMMEDIATE release ) 10 mg = 1 tab(s), PRN, Oral, TIDM pantoprazole 40 mg oral enteric coated tablet 40 mg = 1 tab(s), Oral, qAM Pepto-Bismol Diarrhea 525 mg/10 mL oral suspension 1,575 mg = 30 mL, PRN, Oral, q1h rosuvastatin 40 mg oral tablet 40 mg = 1 tab(s), Oral, qDay sertraline 100 mg oral tablet 100 mg = 1 tab(s), Oral, qDay tamsulosin 0.4 mg oral capsule 0.4 mg = 1 cap(s), Oral, BID traZODone 300 mg oral tablet 300 mg = 1 tab(s), Oral, qHS Trulicity Pen 1.5 mg/0.5 mL subcutaneous solution 1.5 mg = 0.5 mL, Subcutaneous, Monday Vitamin D3 125 mcg (5000 intl units) oral capsule 125 mcg = 1 cap(s), Oral, qDay Allergies:fentaNYL (nausea, vomiting) acetaminophen (Unknown) Haldol (Unknown) HYDROcodone Bitartrate (Unknown) ibuprofen (affects kidneys) Review of systems: See HPI for pertinent positives and negatives. All other review of systems have been reviewed and they are negative. Vitals:Temperature Oral: 36.7 DegC Heart Rate Monitored: 73 bpm Respiratory Rate: 18 br/min Systolic Blood Pressure Non-Invasive: 137 mmHg Diastolic Blood Pressure Non-Invasive: 59 mmHg Low Mean Arterial Pressure (NBP): 89 mmHg Blood Pressure Method: Automatic Blood Pressure Location: Left arm Blood Pressure Cuff Size: Large Reason For Taking VItal Signs: Routine Physical examination: No acute distress on exam. Abdomen soft, nontender. A&Ox3. Labs: 09/27 07:42 Glucose Level: 137 H Sodium Level: 138 Potassium Level: 4.2 BUN: 42.0 H Creatinine Lvl (s): 2.60 H 09/27 03:34 WBC: 10.0 Hgb: 11.1 L Hct: 32.9 L Platelet: 129 L Neutrophil %: 81.2 H Glucose Level: 65 L Sodium Level: 139 Potassium Level: 4.0 BUN: 40.0 H Creatinine Lvl (s): 2.46 H XR Chest 1 View Result Date: September 28, 2023 Verified By: KIA LOPEZ MD CLINICAL STATEMENT: IMPRESSION: Mild hazy airspace disease in the mid and lower lungs bilaterally couldrepresent a developing infectious or inflammatory process versus atelectasis. Assessment: 1. Chronic low back pain with history of multiple back surgeries and prior infection with hardware removal, follows with Dr. Joseph 2. CAD with prior stenting and this admission with PCI to RCA 3. Unstable angina as above 4. TK on CKD 5. HTN 6. HLD Plan: Will adjust pain medications and dc overlapping medications in terms of pain control. Will streamline pain regimen based on his chronic dosing and make Dilaudid available PRN for breakthrough given acute setting and likely increased spasm/back pain Will follow up tomorrow to evaluate pain control and adequacy No plans for escalation of home regimen at discharge At discharge patient to resume his chronic regimen with his longstanding prescribers Digitally Signed by MICKI JIMENEZ DO on 09/28/2023 11:56 PM [id number] Note Date of Service 09/28/23 Reason for Consultation Admission From: E[facility] Consult to Skin Team Nurse - Ordered -- 09/27/23 16:40:00 EDT, Impaired skin integrity, open area lumbar spine from previous surgeris-the incision line heals then breaks open again Skin Team Findings Vitals and Measurements T: 36.7 C (Oral) TMIN: 36.5 C (Oral) TMAX: 37.0 C (Oral) HR: 74 (Monitored) RR: 16 BP: 151/64 SpO2:91% Pressure Area Details - Patient refused head to toe skin assessment but allowed me to assess back wound. -----Incision/Wound------ Back - Incision, Wound Cleansing: Cleaned with normal saline Back - Incision, Wound Dressing Assessment: Drainage present Back - Incision, Wound Dressing/Activity: Changed Back - Incision, Wound Dressing: Gauze dressing Back - Incision, Wound Surrounding Tissue: Induration Back - Non-Pressure Ulcer Type: Other: chronic nonhealing incision Back - Skin Abnormality Color: Red, Yellow Back - Skin Abnormality Pattern: Raised, Linear Back - Skin Abnormality Type: Non-pressure ulcer Back - Wound Associated Pain: With dressing change Back - Wound Bed Tissue Type: Granulation, Necrotic tissue, slough Back - Wound Exudate Amount: Moderate Back - Wound Exudate Odor: None Back - Wound Exudate Type: Seropurulent Back - Wound Percent Granulated: 80 % Back - Wound Percent Necrotic Tissue Slough: 20 % ------Incision/Wound Measurements------ Back - Incision, Wound Depth: 0.5 cm Back - Incision, Wound Length: 6.3 cm Back - Incision, Wound Width: 1.4 cm Assessments and Recommendations ------Assessments------ Current Skin/Wound Interventions: Other: Sitting up in bedside chair ------Recommendations------ Recommended Skin/Wound Interventions: Low air loss mattress, Seat cushion, Barrier cream, Turn and reposition every 2 hours, Consult Dietitian, Proposed orders sent to physician, Other: Elan dueñas & MISBAH Palencia 3day on depart to F/U in clinic Education Individuals Taught: Patient Learning Readiness: Uncooperative Barriers to Learning: Desire/Motivation Teaching Method: Explanation Problem List/Past Medical History Ongoing Anxiety Atherosclerotic heart disease of [place] coronary artery without angina pectoris Benign prostatic hyperplasia Cerebral infarction CHF - Congestive heart failure Chronic kidney disease Chronic pain COPD - Chronic obstructive pulmonary disease Depression GERD - Gastro-esophageal reflux disease Hyperkalemia Hypertension Hypertriglyceridemia Insomnia Neuropathy OCD - Obsessive-compulsive disorder Osteomyelitis Peripheral vascular disease Seizure disorder Severe obesity Suicide Tobacco user Transient ischemic attack Type 2 diabetes mellitus Digitally Signed by JERROD Curran on 09/28/2023 01:34 PM [facility] [id number] Nephrology Consult note Date of Service 09-27 Reason for Consultation tk History of Present Illness Patient is admitted for chest pain. K underlying history significant for chronic kidney disease sees Dr. Bland. On admission hemodynamics are a bit tenuous. Not profoundly anemic. Platelet levels are borderline low. No profound eosinophilia noted. Creatinine was 1.6 now 2.6. Mildly hypokalemic at admission reasonable. Urine output is noted to be around 1 L since yesterday. Home medications relevant to my evaluation are notable for amlodipine carvedilol isosorbide clonidine doxycycline Lasix losartan Protonix hydralazine Farxiga tamsulosin. Currently patient is not on losartan and was suspendedyesterday. He is status post angioplasty of his right coronary artery with a stent placement. Patient required approximately 330 cc of contrast. Review of Systems 10 point review of systems was done. negative other than mentioned above. Physical Exam Vitals and Measurements T: 37.0 C (Oral) TMIN: 36.4 C (Oral) TMAX: 37.0 C (Oral) HR: 70 (Monitored) RR: 16 BP: 118/58 SpO2:98% HT: 177.8 cm WT: 144.7 kg BMI: 45.77 Weight Dosing Weight: 144.7 kg (09/27/23) Dosing Weight: 144.7 kg (09/26/23) General: Alert, awake and oriented x 3 HEENT: Icterus-; Pallor + Neck: No swelling. JVD normal. Chest: Chest equal in expansion, and clear to auscultation bilaterally. Heart: s1s2 heard. regular. No murmur/rub appreciated. Abdomen: Soft. Nondistended. Nontender. Bowel sounds heard. Neuro: asterexis-; sensation b/l intact. Skin: rash-; ecchymosis - Musculoskeletal: joint effusion -; cyanosis-; lower extremitity edema: - Genitourinary/rectal: FMS: - alston:- Breast: deferred Access: Lab Results 09/27 07:42 Glucose Level: 137 H Sodium Level: 138 Potassium Level: 4.2 BUN: 42.0 H Creatinine Lvl (s): 2.60 H 09/27 03:34 WBC: 10.0 Hgb: 11.1 L Hct: 32.9 L Platelet: 129 L Neutrophil %: 81.2 H Glucose Level: 65 L Sodium Level: 139 Potassium Level: 4.0 BUN: 40.0 H Creatinine Lvl (s): 2.46 H 09/26 11:11 Creatinine Lvl (s): 1.66 H 09/26 02:58 WBC: 4.5 Hgb: 12.9 L Hct: 38.0 L Platelet: 122 L Neutrophil %: 64.5 Glucose Level: 181 H Sodium Level: 142 Potassium Level: 3.3 L BUN: 31.0 H Creatinine Lvl (s): 1.61 H Assessment/Plan 1. [id number]. likely contrast nephropathy 2. htn 3. cad plan Will cover for AIN. But at this point it appears it could be mostly contrast associated injury which is mostly ATN in the initial 24 hours if it is presenting this way. Avoiding RAAS blockade agents.Allow systolic blood pressure remain above 110 as able. Dose medication GFR less than 30. Thank you very much Makey This document was composed using voice recognition software, therefore, typographical errors may exist. Problem List/Past Medical History Ongoing Anxiety Atherosclerotic heart disease of [place] coronary artery without angina pectoris Benign prostatic hyperplasia Cerebral infarction CHF - Congestive heart failure Chronic kidney disease Chronic pain COPD - Chronic obstructive pulmonary disease Depression GERD - Gastro-esophageal reflux disease Hyperkalemia Hypertension Hypertriglyceridemia Insomnia Neuropathy OCD - Obsessive-compulsive disorder Osteomyelitis Peripheral vascular disease Seizure disorder Severe obesity Suicide Tobacco user Transient ischemic attack Type 2 diabetes mellitus Procedure/Surgical History Knee replacement Angioplasty of arterial graft Spinal fusion Back Medications Inpatient amLODIPine, 10 mg= 1 tab(s), Oral, qDay Ativan, 0.5 mg= 1 tab(s), Oral, q4h, PRN Ativan, 0.5 mg= 1 tab(s), Oral, q4h, PRN atropine 0.4 mg/mL injectable solution ( PACU ), 0.4 mg= 1 mL, IV Push, AsDirected, PRN [facility] Aspirin, 81 mg= 1 tab(s), Oral, qDayM Carafate, 1 gram(s)= 1 tab(s), Oral, QID carvedilol 25 mg oral tablet, 50 mg= 2 tab(s), Oral, BID cloNIDine, 0.3 mg= 1 tab(s), Oral, TID Dextrose 50% IV Push, 12.5 gram(s)= 25 mL, IV Push, AsDirected, PRN Dextrose 50% IV Push, 12.5 gram(s)= 25 mL, IV Push, AsDirected, PRN Dilaudid, 1 mg= 1 mL, IV Push, q2h, PRN docusate, 100 mg= 1 cap(s), Oral, qDay doxycycline, 100 mg= 1 cap(s), Oral, BID DULoxetine, 30 mg= 1 cap(s), Oral, BID DuoNeb, 3 mL, Inhalation, q4hRT, PRN Farxiga, 10 mg= 1 tab(s), Oral, qDay fentaNYL ( PACU ), 25 mcg= 0.5 mL, IV Push, q5min, PRN finasteride 5 mg oral tablet, 5 mg= 1 tab(s), Oral, qDay fluticasone 50 mcg/inh NASAL spray, 50 mcg= 1 spray(s), Nostril, each, BID gabapentin, 800 mg= 2 cap(s), Oral, TID gemfibrozil, 600 mg= 1 tab(s), Oral, BID glucagon, 1 mg= 1 mL, Subcutaneous, AsDirected, PRN HumaLOG 100 units/mL subcutaneous solution, Give 0-15 units/dose, Subcutaneous, TIDAC HumuLIN R *Concentrated* 500 units/mL, 105 unit(s)= 0.21 mL, Subcutaneous (INT), acLunch HumuLIN R *Concentrated* 500 units/mL, 125 unit(s)= 0.25 mL, Subcutaneous (INT), acSupper HumuLIN R *Concentrated* 500 units/mL, 115 unit(s)= 0.23 mL, Subcutaneous (INT), acBreakfast hydrALAZINE, 100 mg= 2 tab(s), Oral, TID isosorbide mononitrate 60 mg oral tablet, extended release, 60 mg= 1 tab(s), Oral, qDay Keppra, 500 mg= 1 tab(s), Oral, BID mirtazapine, 7.5 mg= 1 tab(s), Oral, qHS morphine, 2 mg= 1 mL, IV Push, q3h, PRN morphine, 4 mg= 1 mL, IV Push, q3h, PRN morphine, 2 mg= 1 mL, IV Push, q3h, PRN morphine, 4 mg= 1 mL, IV Push, q3h, PRN NO METFORMIN (Glucophage) X 48hrs-patient has received contrast, 1 EA, Miscellaneous, Unscheduled oxyCODONE 10 mg oral tablet, 10 mg= 1 tab(s), Oral, TIDM, PRN Plavix, 75 mg= 1 tab(s), Oral, qDay potassium chloride, 20 mEq= 1 tab(s), Oral, AsDirected, PRN potassium chloride, 40 mEq= 2 tab(s), Oral, AsDirected, PRN potassium chloride, 40 mEq= 2 tab(s), Oral, AsDirected, PRN potassium chloride bolus, 20 mEq= 100 mL, IV Piggyback, AsDirected, PRN sertraline, 100 mg= 1 tab(s), Oral, qDay tamsulosin, 0.4 mg= 1 cap(s), Oral, BID traZODone, 300 mg= 2 tab(s), Oral, qHS Zofran, 4 mg= 2 mL, IV Push, q4h, PRN Zofran, 4 mg= 2 mL, IV Push, q4h, PRN Home albuterol-ipratropium 2.5 mg-0.5 mg/3 mL inhalation solution, 3 mL, Inhalation, q6hr amLODIPine 10 mg oral tablet, 10 mg= 1 tab(s), Oral, qDay ascorbic acid 500 mg oral capsule, 500 mg= 1 cap(s), Oral, qDay Biofreeze 4% topical gel, 1 nurys, Topical, TID, PRN Carafate 1 g oral tablet, 1 gram(s)= 1 tab(s), Oral, QID carvedilol 25 mg oral tablet, 50 mg= 2 tab(s), Oral, BID cloNIDine 0.3 mg oral tablet, 0.3 mg= 1 tab(s), Oral, TID cyclobenzaprine 10 mg oral tablet, 10 mg= 1 tab(s), Oral, QID, PRN docusate sodium 100 mg oral tablet, 100 mg= 1 tab(s), Oral, qDay doxycycline hyclate 100 mg oral tablet, 100 mg= 1 tab(s), Oral, BID DULoxetine 30 mg oral delayed release capsule, 30 mg= 1 cap(s), Oral, BID Farxiga 10 mg oral tablet, 10 mg= 1 tab(s), Oral, qDay finasteride 5 mg oral tablet, 5 mg= 1 tab(s), Oral, qDay fluticasone proprionate NASAL 50 mcg/ spray, 1 spray(s), Nostril, each, BID furosemide 40 mg oral tablet, 40 mg= 1 tab(s), Oral, Sun/Tues/Thurs/Sat furosemide 40 mg oral tablet, 40 mg= 1 tab(s), Oral, Mon/Wed/Fri gabapentin 800 mg oral tablet, 800 mg= 1 tab(s), Oral, TID gemfibrozil 600 mg oral tablet, 600 mg= 1 tab(s), Oral, BID glucagon 1 mg injection, 1 mg= 1 EA, Subcutaneous, AsDirected, PRN HumuLIN R KwikPEN (CONCENTRATED) insulin 500 units/mL 3 mL, 125 unit(s), Subcutaneous (INT), acSupper HumuLIN R KwikPEN (CONCENTRATED) insulin 500 units/mL 3 mL, 115 unit(s), Subcutaneous (INT), acBreakfast HumuLIN R KwikPEN (CONCENTRATED) insulin 500 units/mL 3 mL, 105 unit(s), Subcutaneous (INT), acLunch hydrALAZINE 100 mg oral tablet, 100 mg= 1 tab(s), Oral, TID isosorbide mononitrate 60 mg oral tablet, extended release, 60 mg= 1 tab(s), Oral, qDay Keppra 500 mg oral tablet, 500 mg= 1 tab(s), Oral, BID loperamide 2 mg oral capsule, 2 mg= 1 cap(s), Oral, q4h, PRN losartan 100 mg oral tablet, 100 mg= 1 tab(s), Oral, qDay melatonin 3 mg oral tablet, 3 mg= 1 tab(s), Oral, qHS, PRN MiraLax oral powder for reconstitution, 17 gram(s), Oral, qDay, PRN mirtazapine 7.5 mg oral tablet, 7.5 mg= 1 tab(s), Oral, qHS NovoLOG 100 units/mL injectable solution, See Instructions ondansetron 4 mg oral tablet, 4 mg= 1 tab(s), Oral, q8h, PRN oxyCODONE 10 mg oral tablet ( IMMEDIATE release ), 10 mg= 1 tab(s), Oral, TIDM, PRN pantoprazole 40 mg oral enteric coated tablet, 40 mg= 1 tab(s), Oral, qAM Pepto-Bismol Diarrhea 525 mg/10 mL oral suspension, 1575 mg= 30 mL, Oral, q1h, PRN rosuvastatin 40 mg oral tablet, 40 mg= 1 tab(s), Oral, qDay sertraline 100 mg oral tablet, 100 mg= 1 tab(s), Oral, qDay tamsulosin 0.4 mg oral capsule, 0.4 mg= 1 cap(s), Oral, BID traZODone 300 mg oral tablet, 300 mg= 1 tab(s), Oral, qHS Trulicity Pen 1.5 mg/0.5 mL subcutaneous solution, 1.5 mg= 0.5 mL, Subcutaneous, Monday Vitamin D3 125 mcg (5000 intl units) oral capsule, 125 mcg= 1 cap(s), Oral, qDay Allergies fentaNYL (Moderate) nausea, vomiting HYDROcodone Bitartrate Unknown Haldol Unknown acetaminophen Unknown ibuprofen affects kidneys Social History Smoking Status - 05/29/2008 Patient smokes Alcohol Use: Never., 10/13/2022 Home/Environment Living situation: Extended Care Facility. Professional Skilled Services or Special Community Resources None. Marital Status: Unmarried., 09/26/2023 Nutrition/Health Type of diet: Diabetic. Caffeine intake amount: 6 pk a day. Appetite Excellent. Eating DifficultiesNone., 09/26/2023 Sexual Self described orientation: Straight or heterosexual., 09/26/2023 Substance Abuse Use: Never., 10/13/2022 Tobacco Nicotine Use: 5-9 cigarettes (between 1/4 to 1/2 pack)/day in last 30 days. Type: Cigarettes. Tobacco use per day: 5. Number of years: 40., 03/28/2023 Family History Cancer: Mother, Father and Sister. Heart disease: Mother and Father. Health Status Family Member(s) Immunizations SARS-CoV-2 mRNA (tozinameran) vaccine: 0.3 unknown unit (01/22/21) SARS-CoV-2 mRNA (tozinameran) vaccine: 0.3 unknown unit (04/02/20) SARS-CoV-2 mRNA (tozinameran) vaccine: 0 unknown unit (03/11/20) tetanus/diphth/pertuss (Tdap) adult/adol: 0.5 unknown unit (10/21/19) Digitally Signed by ARABELLA SIMPSON MD on 09/29/2023 06:31 AM [id number] Cardiology Progress note Date of Service September 28, 2023 Subjective No acute complaints [facility] 09/27/2023 Procedures performed: Left heart catheterization. Left ventriculography. Left coronary angiography. Right coronary angiography. Percutaneous intervention on the 90% stenosis in the proximal right coronary. Stent placement. SUMMARY: 1. 1st lesion: Stent placement was performed. A 3.5 mm (D) x 28 mm (L), Synergy XD stent was used. The stent was advanced across the lesion and deployed with four inflations and a maximum pressure of 20 fanny. 2. Left ventricle: Systolic function is normal. The estimated ejection fraction is 65-70%. Wall motion is normal; there are no regional wall motion abnormalities. 3. Left circumflex: Mid-vessel lesion: There is a chronic total occlusion. 4. Right coronary: Proximal vessel lesion: The diagnostic study demonstrated a tubular, 20 mm (L), 90% stenosis. The distal vessel supplies a large vascular territory. The lesion is a likely culprit for the patient'sanginal symptoms and clinical presentation. The lesion presents an ACC/AHA type C high risk lesion for intervention. Stent placement was performed, with balloon angioplasty, resulting in an excellent angiographic appearance (see 1st lesion). Following intervention, there is a residual 0% stenosis with SARAH grade 3 flow (brisk flow). IMPRESSIONS: 1. Acute coronary syndrome. Reperfusion was successfully achieved. 2. successful ptca/juan m of rca w/o co mplication iv aggrastat bolus plavix asa tr band post procedure. attempted to recannalize lcx but appears to be IMPLEMENTATION SPECIALIST PAYROLL does have good collaterals from lad. medical mx if fails could re attempt Objective Vitals and Measurements T: 37.0 C (Oral) TMIN: 36.4 C (Oral) TMAX: 37.0 C (Oral) HR: 64 (Monitored) RR: 18 BP: 118/58 SpO2:93% HT: 177.8 cm WT: 144.7 kg BMI: 45.77 Intake and Output 7AM Yesterday to 7AM Today Intake and Output (Last 24 hours) Intake Oral Intake 3328.00 Administration Information 802.84 Output Urine Voided 1000.00 Intra-Op EBL 30.00 Stool Count 0.00 Urine Count 4.00 Total Summary Total Intake 4130.84 Total Output 1030.00 Fluid Balance 3100.84 Physical Exam Constitutional: Oriented to time, place, and person - well developed - well nourished Cardiovascular: JVD not elevated, S1 S2 present,No added sounds, no LE edema Abdomen: nontender Musculoskeletal system: general/bilateral Normal movement of all extremities Neurological: NFND. Skin: color and pigmentation is normal Weight Dosing Weight: 144.7 kg (09/27/23) Dosing Weight: 144.7 kg (09/26/23) Medications Medications (47) Active Scheduled: (26) amLODIPine 10 mg tablet 10 mg 1 tab(s), Oral, qDay aspirin 81 mg Chewable 81 mg 1 tab(s), Oral, qDayM carvedilol 25 mg tablet 50 mg 2 tab(s), Oral, BID cloNIDine 0.3 mg tablet 0.3 mg 1 tab(s), Oral, TID clopidogrel 75 mg Tablet 75 mg 1 tab(s), Oral, qDay dapagliflozin 10 mg tablet 10 mg 1 tab(s), Oral, qDay docusate sodium 100 mg Capsule 100 mg 1 cap(s), Oral, qDay doxycycline hyclate 100 mg Capsule 100 mg 1 cap(s), Oral, BID duloxetine [address] capsule 30 mg 1 cap(s), Oral, BID finasteride 5 mg tablet 5 mg 1 tab(s), Oral, qDay fluticasone nasal 0.05 mg/inh [place] 50 mcg 1 spray(s), Nostril, each, BID gabapentin 400 mg capsule 800 mg 2 cap(s), Oral, TID gemfibrozil 600 mg tablet 600 mg 1 tab(s), Oral, BID hydralazine 50 mg Tablet 100 mg 2 tab(s), Oral, TID insulin lispro 100 units/mL Soln (3 mL) Give 0-15 units/dose, Subcutaneous, TIDAC insulin R 500units/mL Concentrated 105 unit(s) 0.21 mL, Subcutaneous (INT), acLunch insulin R 500units/mL Concentrated 125 unit(s) 0.25 mL, Subcutaneous (INT), acSupper insulin R 500units/mL Concentrated 115 unit(s) 0.23 mL, Subcutaneous (INT), acBreakfast isosorbide mononitrate 60 mg ER tablet 60 mg 1 tab(s), Oral, qDay levETIRAcetam 500 mg tablet 500 mg 1 tab(s), Oral, BID mirtazapine 7.5 mg tablet 7.5 mg 1 tab(s), Oral, qHS No metformin for 48 hrs post contrast 1 EA, Miscellaneous, Unscheduled sertraline 100 mg tablet 100 mg 1 tab(s), Oral, qDay sucralfate 1 gm tablet 1 gram(s) 1 tab(s), Oral, QID tamsulosin 0.4 mg Capsule 0.4 mg 1 cap(s), Oral, BID traZODONE 150 mg Tablet 300 mg 2 tab(s), Oral, qHS Continuous: (1) NS (0.9% nacl) 1,000 mL 1,000 mL, Intravenous, 100 mL/hr PRN: (20) albuterol - ipratropium 2.5 mg-0.5 mg/3 mL Inhal Corrine UD 3 mL, Inhalation, q4hRT atropine 0.4 mg/ml 1 mL vial 0.4 mg 1 mL, IV Push, AsDirected dextrose 50% Solution Disp syringe 50 mL 12.5 gram(s) 25 mL, IV Push, AsDirected dextrose 50% Solution Disp syringe 50 mL 12.5 gram(s) 25 mL, IV Push, AsDirected fentaNYL 50 mcg/mL (2mL) ampule 25 mcg 0.5 mL, IV Push, q5min glucagon recombinant 1 mg 1 mg 1 mL, Subcutaneous, AsDirected hydromorphone 1 mg/mL (1mL) INJ 1 mg 1 mL, IV Push, q2h LORAZEPam 0.5 mg tablet 0.5 mg 1 tab(s), Oral, q4h LORAZEPam 0.5 mg tablet 0.5 mg 1 tab(s), Oral, q4h morphine 2 mg/mL 1 mL syringe 2 mg 1 mL, IV Push, q3h morphine 2 mg/mL 1 mL syringe 2 mg 1 mL, IV Push, q3h morphine 4 mg/mL 1mL INJ 4 mg 1 mL, IV Push, q3h morphine 4 mg/mL 1mL INJ 4 mg 1 mL, IV Push, q3h ondansetron 2 mg/ 1 mL 2 mL INJ 4 mg 2 mL, IV Push, q4h ondansetron 2 mg/ 1 mL 2 mL INJ 4 mg 2 mL, IV Push, q4h oxyCODONE 10 mg Tab (Immediate Release) 10 mg 1 tab(s), Oral, TIDM potassium chloride (PMX) 20 mEq/100 mL 20 mEq 100 mL, IV Piggyback, AsDirected potassium chloride 20 mEq ER tablet 20 mEq 1 tab(s), Oral, AsDirected potassium chloride 20 mEq ER tablet 40 mEq 2 tab(s), Oral, AsDirected potassium chloride 20 mEq ER tablet 40 mEq 2 tab(s), Oral, AsDirected Lab Results 09/27 07:42 Glucose Level: 137 H Sodium Level: 138 Potassium Level: 4.2 BUN: 42.0 H Creatinine Lvl (s): 2.60 H 09/27 03:34 WBC: 10.0 Hgb: 11.1 L Hct: 32.9 L Platelet: 129 L Neutrophil %: 81.2 H Glucose Level: 65 L Sodium Level: 139 Potassium Level: 4.0 BUN: 40.0 H Creatinine Lvl (s): 2.46 H 09/26 11:11 Creatinine Lvl (s): 1.66 H 09/26 02:58 WBC: 4.5 Hgb: 12.9 L Hct: 38.0 L Platelet: 122 L Neutrophil %: 64.5 Glucose Level: 181 H Sodium Level: 142 Potassium Level: 3.3 L BUN: 31.0 H Creatinine Lvl (s): 1.61 H EKG Electrocardiogram (EKG) - Ordered -- 09/27/23 9:47:00 EDT, Post-procedure, Complete by Nursing Electrocardiogram - InProcess -- 09/28/23 6:00:00 EDT, Complete by Nursing Electrocardiogram - Ordered -- 09/29/23 6:00:00 EDT, Complete by Nursing Assessment/Plan Unstable angina status post PCI to RCA CAD, prior stent to proximal LCx, IMPLEMENTATION SPECIALIST PAYROLL of mid LCx, collateral flow from distal LAD to distal LCx TK on CKD baseline appears to be 1.5 Hypertension Hyperlipidemia Patient presented as an elective outpatient cath, required anesthesia due to severe back pain and to undergo cath. Patient had 90% stenosis in the proximal RCA which was successfully stented. Patientdoes have a IMPLEMENTATION SPECIALIST PAYROLL in the mid left circumflex which was attempted to recanalize however then noted to be a IMPLEMENTATION SPECIALIST PAYROLL which had good collaterals from LAD hence this is being medically managed. Patient with diabetes and CKD, has been on 100 cc an hour for the last 24 hours however creatinine is still uptrending, will request nephrology for further evaluation. Patient is working to [facility] however he was instructed that he will need to stay in order to have his creatinine recover. Nephrology evaluation has been requested, patient has been started on IV steroids, possibly covering for interstitial nephritis. Of note, patient intermittently uses 2 L of nasal cannula at home, currently weaned down to room air. Digitally Signed by NEO MURPHY MD on 09/28/2023 07:10 PM [id number] Note ORIGINAL EXAMINATION: ONE XRAY VIEW OF THE CHEST 09/28/2023 7:55 am COMPARISON: None. HISTORY: ORDERING SYSTEM PROVIDED HISTORY: Reason for Exam: eval for fluid overload FINDINGS: Heart size is normal. No pneumothorax. No large effusion. Mild hazy airspace disease in the mid and lower lungs bilaterally. No pneumothorax or effusion. No focal consolidation. IMPRESSION: Mild hazy airspace disease in the mid and lower lungs bilaterally could represent a developing infectious or inflammatory process versus atelectasis. Interpreted by: Kia Lopez MD Preliminary Report By: Kai Lopez MD Electronically signed By Kia Lopez MD Dictated Date: 09/28/2023 7:59:56 AM Prelim Date: 09/28/2023 8:01:12 AM Sign Date: 09/28/2023 8:01:12 AM Ordering Provider: [facility] NoteSINUS RHYTHM MULTIFORM VENTRICULAR PREMATURE COMPLEXES PROLONGED OR INTERVAL Electronic Signature: MEDARDO BLACKMAN MD 09/29/2023 23:24:08[facility] 07-10-2024 Anesthesiology Consult note Patient: CHITO WELLS Age: 57 years Sex: Male : 1965 Associated Diagnoses: None Author: DEA AREVALO MD Postoperative Information Post Operative Info: Post op day: POD0. Patient location: same day surgery. Assessment Postanesthesia assessment Vitals: Vital signs from flowsheet : Vital Signs 09/27/2023 9:45 EDT Respiratory Rate - Anes 0 br/min br/min 09/27/2023 9:40 EDT Heart Rate Monitored 69 bpm bpm Respiratory Rate - Anes 9 br/min br/min 09/27/2023 9:38 EDT Systolic Blood Pressure Non-Invasive 145 mmHg mmHg Diastolic Blood Pressure Non-Invasive 71 mmHg mmHg 09/27/2023 9:35 EDT Heart Rate Monitored 67 bpm bpm Respiratory Rate - Anes 6 br/min br/min Systolic Blood Pressure Non-Invasive 142 mmHg mmHg Diastolic Blood Pressure Non-Invasive 76 mmHg mmHg 09/27/2023 9:32 EDT Systolic Blood Pressure Non-Invasive 146 mmHg mmHg Diastolic Blood Pressure Non-Invasive 72 mmHg mmHg 09/27/2023 9:30 EDT Heart Rate Monitored 69 bpm bpm Respiratory Rate - Anes 5 br/min br/min 09/27/2023 9:29 EDT Systolic Blood Pressure Non-Invasive 161 mmHg mmHg Diastolic Blood Pressure Non-Invasive 75 mmHg mmHg 09/27/2023 9:26 EDT Systolic Blood Pressure Non-Invasive 156 mmHg mmHg Diastolic Blood Pressure Non-Invasive 80 mmHg mmHg 09/27/2023 9:25 EDT Heart Rate Monitored 72 bpm bpm Respiratory Rate - Anes 8 br/min br/min 09/27/2023 9:23 EDT Systolic Blood Pressure Non-Invasive 154 mmHg mmHg Diastolic Blood Pressure Non-Invasive 80 mmHg mmHg 09/27/2023 9:20 EDT Heart Rate Monitored 70 bpm bpm Respiratory Rate - Anes 5 br/min br/min Systolic Blood Pressure Non-Invasive 151 mmHg mmHg Diastolic Blood Pressure Non-Invasive 80 mmHg mmHg 09/27/2023 9:17 EDT Systolic Blood Pressure Non-Invasive 152 mmHg mmHg Diastolic Blood Pressure Non-Invasive 84 mmHg mmHg 09/27/2023 9:15 EDT Heart Rate Monitored 68 bpm bpm Respiratory Rate - Anes 6 br/min br/min 09/27/2023 9:14 EDT Systolic Blood Pressure Non-Invasive 149 mmHg mmHg Diastolic Blood Pressure Non-Invasive 76 mmHg mmHg 09/27/2023 9:11 EDT Systolic Blood Pressure Non-Invasive 150 mmHg mmHg Diastolic Blood Pressure Non-Invasive 70 mmHg mmHg 09/27/2023 9:10 EDT Heart Rate Monitored 68 bpm bpm Respiratory Rate - Anes 6 br/min br/min 09/27/2023 9:08 EDT Systolic Blood Pressure Non-Invasive 137 mmHg mmHg Diastolic Blood Pressure Non-Invasive 76 mmHg mmHg 09/27/2023 9:05 EDT Heart Rate Monitored 68 bpm bpm Respiratory Rate - Anes 6 br/min br/min Systolic Blood Pressure Non-Invasive 151 mmHg mmHg Diastolic Blood Pressure Non-Invasive 72 mmHg mmHg 09/27/2023 9:02 EDT Systolic Blood Pressure Non-Invasive 140 mmHg mmHg Diastolic Blood Pressure Non-Invasive 76 mmHg mmHg 09/27/2023 9:00 EDT Heart Rate Monitored 68 bpm bpm Respiratory Rate - Anes 7 br/min br/min 09/27/2023 8:59 EDT Systolic Blood Pressure Non-Invasive 143 mmHg mmHg Diastolic Blood Pressure Non-Invasive 73 mmHg mmHg 09/27/2023 8:56 EDT Systolic Blood Pressure Non-Invasive 140 mmHg mmHg Diastolic Blood Pressure Non-Invasive 72 mmHg mmHg 09/27/2023 8:55 EDT Heart Rate Monitored 67 bpm bpm Respiratory Rate - Anes 7 br/min br/min 09/27/2023 8:53 EDT Systolic Blood Pressure Non-Invasive 139 mmHg mmHg Diastolic Blood Pressure Non-Invasive 73 mmHg mmHg 09/27/2023 8:50 EDT Heart Rate Monitored 67 bpm bpm Respiratory Rate - Anes 5 br/min br/min Systolic Blood Pressure Non-Invasive 129 mmHg mmHg Diastolic Blood Pressure Non-Invasive 67 mmHg mmHg 09/27/2023 8:47 EDT Systolic Blood Pressure Non-Invasive 121 mmHg mmHg Diastolic Blood Pressure Non-Invasive 57 mmHg mmHg 09/27/2023 8:45 EDT Heart Rate Monitored 65 bpm bpm Respiratory Rate - Anes 4 br/min br/min 09/27/2023 8:44 EDT Systolic Blood Pressure Non-Invasive 110 mmHg mmHg Diastolic Blood Pressure Non-Invasive 62 mmHg mmHg 09/27/2023 8:41 EDT Systolic Blood Pressure Non-Invasive 101 mmHg mmHg Diastolic Blood Pressure Non-Invasive 59 mmHg mmHg 09/27/2023 8:40 EDT Heart Rate Monitored 60 bpm bpm Respiratory Rate - Anes 3 br/min br/min 09/27/2023 8:38 EDT Systolic Blood Pressure Non-Invasive 94 mmHg mmHg Diastolic Blood Pressure Non-Invasive 57 mmHg mmHg 09/27/2023 8:35 EDT Heart Rate Monitored 62 bpm bpm Respiratory Rate - Anes 5 br/min br/min Systolic Blood Pressure Non-Invasive 105 mmHg mmHg Diastolic Blood Pressure Non-Invasive 57 mmHg mmHg 09/27/2023 8:32 EDT Systolic Blood Pressure Non-Invasive 113 mmHg mmHg Diastolic Blood Pressure Non-Invasive 59 mmHg mmHg 09/27/2023 8:30 EDT Heart Rate Monitored 65 bpm bpm Respiratory Rate - Anes 4 br/min br/min 09/27/2023 8:29 EDT Systolic Blood Pressure Non-Invasive 124 mmHg mmHg Diastolic Blood Pressure Non-Invasive 63 mmHg mmHg 09/27/2023 8:26 EDT Systolic Blood Pressure Non-Invasive 133 mmHg mmHg Diastolic Blood Pressure Non-Invasive 65 mmHg mmHg 09/27/2023 8:25 EDT Heart Rate Monitored 65 bpm bpm Respiratory Rate - Anes 7 br/min br/min 09/27/2023 8:23 EDT Systolic Blood Pressure Non-Invasive 140 mmHg mmHg Diastolic Blood Pressure Non-Invasive 70 mmHg mmHg 09/27/2023 8:20 EDT Heart Rate Monitored 65 bpm bpm Respiratory Rate - Anes 4 br/min br/min 09/27/2023 8:18 EDT Systolic Blood Pressure Non-Invasive 107 mmHg mmHg Diastolic Blood Pressure Non-Invasive 78 mmHg mmHg 09/27/2023 8:15 EDT Respiratory Rate - Anes 7 br/min br/min 09/27/2023 8:10 EDT Respiratory Rate - Anes 0 br/min br/min 09/27/2023 2:59 EDT Temperature Oral 36.4 DegC Peripheral Pulse Rate 61 bpm Respiratory Rate 18 br/min Systolic Blood Pressure Non-Invasive 170 mmHg HI Diastolic Blood Pressure Non-Invasive 97 mmHg HI Blood Pressure Method Automatic Blood Pressure Location Left arm 09/27/2023 0:15 EDT Respiratory Rate 16 br/min 09/26/2023 23:16 EDT Respiratory Rate 18 br/min 09/26/2023 22:04 EDT Systolic Blood Pressure Non-Invasive 177 mmHg HI Diastolic Blood Pressure Non-Invasive 92 mmHg HI 09/26/2023 20:36 EDT Temperature Temporal Artery 36.6 DegC Apical Heart Rate 66 bpm Respiratory Rate 18 br/min Systolic Blood Pressure Non-Invasive 162 mmHg HI Diastolic Blood Pressure Non-Invasive 75 mmHg 09/26/2023 16:37 EDT Temperature Temporal Artery 36.4 DegC Peripheral Pulse Rate 65 bpm (Modified) Respiratory Rate 18 br/min Systolic Blood Pressure Non-Invasive 170 mmHg HI Diastolic Blood Pressure Non-Invasive 83 mmHg 09/26/2023 11:54 EDT Temperature Temporal Artery 36.3 DegC Temperature Tympanic In Error DegC (In Error) Peripheral Pulse Rate 69 bpm Respiratory Rate 18 br/min Systolic Blood Pressure Non-Invasive 142 mmHg HI Diastolic Blood Pressure Non-Invasive 88 mmHg 09/26/2023 9:39 EDT Temperature Oral 36.6 DegC Peripheral Pulse Rate 66 bpm Respiratory Rate 16 br/min Systolic Blood Pressure Non-Invasive 176 mmHg HI Diastolic Blood Pressure Non-Invasive 78 mmHg 09/26/2023 6:15 EDT Temperature Oral 36.4 DegC Peripheral Pulse Rate 70 bpm Respiratory Rate 18 br/min Systolic Blood Pressure Non-Invasive 183 mmHg HI Diastolic Blood Pressure Non-Invasive 93 mmHg HI , Oxygen Therapy : Oxygen Therapy & Oxygenation Information 09/27/2023 9:40 EDT Oxygen Saturation 96 % % 09/27/2023 9:35 EDT Oxygen Saturation 95 % % 09/27/2023 9:30 EDT Oxygen Saturation 94 % % 09/27/2023 9:25 EDT Oxygen Saturation 95 % % 09/27/2023 9:20 EDT Oxygen Saturation 96 % % 09/27/2023 9:15 EDT Oxygen Saturation 96 % % 09/27/2023 9:10 EDT Oxygen Saturation 95 % % 09/27/2023 9:05 EDT Oxygen Saturation 94 % % 09/27/2023 9:00 EDT Oxygen Saturation 95 % % 09/27/2023 8:55 EDT Oxygen Saturation 95 % % 09/27/2023 8:50 EDT Oxygen Saturation 93 % % 09/27/2023 8:45 EDT Oxygen Saturation 93 % % 09/27/2023 8:40 EDT Oxygen Saturation 90 % % 09/27/2023 8:35 EDT Oxygen Saturation 91 % % 09/27/2023 8:30 EDT Oxygen Saturation 93 % % 09/27/2023 8:25 EDT Oxygen Saturation 88 % % 09/27/2023 8:20 EDT Oxygen Saturation 95 % % 09/27/2023 8:15 EDT Oxygen Saturation 96 % % 09/27/2023 6:25 EDT Oxygen Therapy Room air 09/27/2023 5:30 EDT Oxygen Therapy Room air 09/27/2023 2:59 EDT Oxygen Therapy Room air Oxygen Saturation 96 % 09/27/2023 0:15 EDT Oxygen Therapy Room air 09/26/2023 23:16 EDT Oxygen Therapy Room air 09/26/2023 22:04 EDT Oxygen Therapy Room air 09/26/2023 20:36 EDT Oxygen Therapy Room air Oxygen Saturation 94 % 09/26/2023 16:37 EDT Oxygen Saturation 94 % (Modified) 09/26/2023 11:54 EDT Oxygen Therapy Room air Oxygen Saturation 94 % 09/26/2023 9:39 EDT Oxygen Therapy Room air Oxygen Saturation 94 % 09/26/2023 6:15 EDT Oxygen Therapy Room air Oxygen Saturation 91 % LOW . Mental status: at preoperative baseline. Respiratory function: respirations are non-labored, Stable. Respiratory support: none. CV function: Stable. Cardiovascular support: none. Pain: Satisfactory. Nausea status: Satisfactory. Postoperative hydration status: within normal limits. Notes: Patient is sufficiently recovered from anesthesia to participate in the evaluation. No follow-up care needed. No complications post-anesthesia.. Digitally Signed by DEA AREVALO MD on 09/27/2023 10:50 AM [id number] Anesthesiology Consult note Patient: CHITO WELLS Age: 57 years Sex: Male : 1965 Associated Diagnoses: None Author: DEA AREVALO MD Preoperative Information Greater than 6 hours Anesthesia history Patient's history: negative. Family's history: negative. Review of Systems Ear/Nose/Mouth/Throat: Negative except as documented in history of present illness. Respiratory: Negative except as documented in history of present illness. Cardiovascular: Negative except as documented in history of present illness. Gastrointestinal: Negative except as documented in history of present illness. Genitourinary: Negative except as documented in history of present illness. Endocrine: Negative except as documented in history of present illness. Musculoskeletal: Negative except as documented in history of present illness. Integumentary: Negative except as documented in history of present illness. Neurologic: Negative except as documented in history of present illness. Health Status Allergies: Allergic Reactions (Selected) Severity Not Documented Acetaminophen- Unknown. FentaNYL- No reactions were documented. Haldol- Unknown. HYDROcodone Bitartrate- Unknown. Ibuprofen- Affects kidneys., Allergies (5) ActiveSeverityReaction fentaNYLNone Documented acetaminophenUnknown HYDROcodone BitartrateUnknown HaldolUnknown ibuprofenaffects kidneys Current medications: (Selected) Inpatient Medications Ordered Ativan: 0.5 mg, 1 tab(s), Oral, q4h, PRN: Anxiety Carafate: 1 gram(s), 1 tab(s), Oral, QID DULoxetine: 30 mg, 1 cap(s), Oral, BID Dextrose 50% IV Push: 12.5 gram(s), 25 mL, IV Push, AsDirected, PRN: Hypoglycemia Dilaudid: 1 mg, 1 mL, IV Push, q2h, PRN: Pain, non-cardiac DuoNeb: 3 mL, Inhalation, q4hRT, PRN: Shortness of breath or wheezing Farxiga: 10 mg, 1 tab(s), Oral, qDay HumaLOG 100 units/mL subcutaneous solution: Give 0-15 units/dose, Subcutaneous, TIDAC HumuLIN R *Concentrated* 500 units/mL: 105 unit(s), 0.21 mL, 0 mL/hr, Subcutaneous (INT), acLunch HumuLIN R *Concentrated* 500 units/mL: 115 unit(s), 0.23 mL, 0 mL/hr, Subcutaneous (INT), acBreakfast HumuLIN R *Concentrated* 500 units/mL: 125 unit(s), 0.25 mL, 0 mL/hr, Subcutaneous (INT), acSupper Keppra: 500 mg, 1 tab(s), Oral, BID NS 1,000 mL: 50 mL/hr, Intravenous, Stop: 09/27/23 9:13:00 EDT Zofran: 4 mg, 2 mL, IV Push, q4h, PRN: Nausea/Vomiting amLODIPine: 10 mg, 1 tab(s), Oral, qDay carvedilol 25 mg oral tablet: 50 mg, 2 tab(s), Oral, BID cloNIDine: 0.3 mg, 1 tab(s), Oral, TID docusate: 100 mg, 1 cap(s), Oral, qDay doxycycline: 100 mg, 1 cap(s), Oral, BID finasteride 5 mg oral tablet: 5 mg, 1 tab(s), Oral, qDay fluticasone 50 mcg/inh NASAL spray: 50 mcg, 1 spray(s), Nostril, each, BID gabapentin: 800 mg, 2 cap(s), Oral, TID gemfibrozil: 600 mg, 1 tab(s), Oral, BID glucagon: 1 mg, 1 mL, Subcutaneous, AsDirected, PRN: Low blood sugar hydrALAZINE: 100 mg, 2 tab(s), Oral, TID isosorbide mononitrate 60 mg oral tablet, extended release: 60 mg, 1 tab(s), Oral, qDay losartan: 100 mg, 1 tab(s), Oral, qDay mirtazapine: 7.5 mg, 1 tab(s), Oral, qHS morphine: 2 mg, 1 mL, IV Push, q3h, PRN: Pain, scale 4-6 morphine: 4 mg, 1 mL, IV Push, q3h, PRN: Pain, scale 7-10 oxyCODONE 10 mg oral tablet: 10 mg, 1 tab(s), Oral, TIDM, PRN: Pain, scale 1-10 sertraline: 100 mg, 1 tab(s), Oral, qDay tamsulosin: 0.4 mg, 1 cap(s), Oral, BID traZODone: 300 mg, 2 tab(s), Oral, qHS Documented Medications Documented Biofreeze 4% topical gel: 1 nurys, Topical, TID, PRN: as needed for pain, 118 mL, 0 Refill(s) Carafate 1 g oral tablet: 1 gram(s), 1 tab(s), Oral, QID, 120 tab(s), 0 Refill(s) DULoxetine 30 mg oral delayed release capsule: 30 mg, 1 cap(s), Oral, BID, do not crush or chew, 180 cap(s), 0 Refill(s) Farxiga 10 mg oral tablet: 10 mg, 1 tab(s), Oral, qDay, 30 tab(s), 0 Refill(s) HumuLIN R KwikPEN (CONCENTRATED) insulin 500 units/mL 3 mL: 105 unit(s), Subcutaneous-INT, acLunch,SEE LONGTERM MED LIST, ON LIST X3 NO INSTRUCTIONS ON TIME OF DOSE, 3 mL HumuLIN R KwikPEN (CONCENTRATED) insulin 500 units/mL 3 mL: 115 unit(s), Subcutaneous (INT), acBreakfast HumuLIN R KwikPEN (CONCENTRATED) insulin 500 units/mL 3 mL: 125 unit(s), Subcutaneous (INT), acSupper Keppra 500 mg oral tablet: 500 mg, 1 tab(s), Oral, BID, 60 tab(s), 0 Refill(s) MiraLax oral powder for reconstitution: 17 gram(s), Oral, qDay, PRN: Constipation, 238 gram(s), 0 Refill(s) NovoLOG 100 units/mL injectable solution: See Instructions, before meals and hs, 0 Refill(s) Pepto-Bismol Diarrhea 525 mg/10 mL oral suspension: 1,575 mg, 30 mL, Oral, q1h, PRN: Indigestion, 0Refill(s) Trulicity Pen 1.5 mg/0.5 mL subcutaneous solution: 1.5 mg, 0.5 mL, Subcutaneous, Monday, 0 Refill(s) Vitamin D3 125 mcg (5000 intl units) oral capsule: 125 mcg, 1 cap(s), Oral, qDay, with food, 250 cap(s), 0 Refill(s) albuterol-ipratropium 2.5 mg-0.5 mg/3 mL inhalation solution: 3 mL, Inhalation, q6hr, 60 EA, 0 Refill(s) amLODIPine 10 mg oral tablet: 10 mg, 1 tab(s), Oral, qDay, 30 tab(s), 0 Refill(s) ascorbic acid 500 mg oral capsule: 500 mg, 1 cap(s), Oral, qDay, 30 cap(s), 0 Refill(s) carvedilol 25 mg oral tablet: 50 mg, 2 tab(s), Oral, BID, 60 tab(s), 0 Refill(s) cloNIDine 0.3 mg oral tablet: 0.3 mg, 1 tab(s), Oral, TID, 60 tab(s), 0 Refill(s) cyclobenzaprine 10 mg oral tablet: 10 mg, 1 tab(s), Oral, QID, PRN: as needed for spasm, 30 tab(s),0 Refill(s) docusate sodium 100 mg oral tablet: 100 mg, 1 tab(s), Oral, qDay, 100 tab(s), 0 Refill(s) doxycycline hyclate 100 mg oral tablet: 100 mg, 1 tab(s), Oral, BID, 20 tab(s), 0 Refill(s) finasteride 5 mg oral tablet: 5 mg, 1 tab(s), Oral, qDay, 30 tab(s), 0 Refill(s) fluticasone proprionate NASAL 50 mcg/ spray: 1 spray(s), Nostril, each, BID, 0 Refill(s) furosemide 40 mg oral tablet: 40 mg, 1 tab(s), Oral, Mon/Mon/Fri, BID, 30 tab(s), 0 Refill(s) furosemide 40 mg oral tablet: 40 mg, 1 tab(s), Oral, Sun/Tues/Thurs/Sat, QD, 30 tab(s), 0 Refill(s) gabapentin 800 mg oral tablet: 800 mg, 1 tab(s), Oral, TID, 270 tab(s), 0 Refill(s) gemfibrozil 600 mg oral tablet: 600 mg, 1 tab(s), Oral, BID, 60 tab(s), 0 Refill(s) glucagon 1 mg injection: 1 mg, 1 EA, Subcutaneous, AsDirected, PRN: for low blood sugar, 1 EA, 1 Refill(s) hydrALAZINE 100 mg oral tablet: 100 mg, 1 tab(s), Oral, TID, 180 tab(s), 0 Refill(s) isosorbide mononitrate 60 mg oral tablet, extended release: 60 mg, 1 tab(s), Oral, qDay, 30 tab(s),0 Refill(s) loperamide 2 mg oral capsule: 2 mg, 1 cap(s), Oral, q4h, PRN: for loose stool, 0 Refill(s) losartan 100 mg oral tablet: 100 mg, 1 tab(s), Oral, qDay, 30 tab(s), 0 Refill(s) melatonin 3 mg oral tablet: 3 mg, 1 tab(s), Oral, qHS, PRN: as needed for insomnia, 60 tab(s), 0 Refill(s) mirtazapine 7.5 mg oral tablet: 7.5 mg, 1 tab(s), Oral, qHS, 180 tab(s), 0 Refill(s) ondansetron 4 mg oral tablet: 4 mg, 1 tab(s), Oral, q8h, PRN: Nausea/Vomiting, 15 tab(s), 0 Refill(s) oxyCODONE 10 mg oral tablet ( IMMEDIATE release ): 10 mg, 1 tab(s), Oral, TIDM, PRN: as needed for pain, 0 Refill(s) pantoprazole 40 mg oral enteric coated tablet: 40 mg, 1 tab(s), Oral, qAM, 60 tab(s), 0 Refill(s) rosuvastatin 40 mg oral tablet: 40 mg, 1 tab(s), Oral, qDay, 30 tab(s), 0 Refill(s) sertraline 100 mg oral tablet: 100 mg, 1 tab(s), Oral, qDay, 30 tab(s), 0 Refill(s) tamsulosin 0.4 mg oral capsule: 0.4 mg, 1 cap(s), Oral, BID, 30 cap(s), 0 Refill(s) traZODone 300 mg oral tablet: 300 mg, 1 tab(s), Oral, qHS, 0 Refill(s), Medications (34) Active Scheduled: (24) amLODIPine 10 mg tablet 10 mg 1 tab(s), Oral, qDay carvedilol 25 mg tablet 50 mg 2 tab(s), Oral, BID cloNIDine 0.3 mg tablet 0.3 mg 1 tab(s), Oral, TID dapagliflozin 10 mg tablet 10 mg 1 tab(s), Oral, qDay docusate sodium 100 mg Capsule 100 mg 1 cap(s), Oral, qDay doxycycline hyclate 100 mg Capsule 100 mg 1 cap(s), Oral, BID duloxetine [address] capsule 30 mg 1 cap(s), Oral, BID finasteride 5 mg tablet 5 mg 1 tab(s), Oral, qDay fluticasone nasal 0.05 mg/inh [place] 50 mcg 1 spray(s), Nostril, each, BID gabapentin 400 mg capsule 800 mg 2 cap(s), Oral, TID gemfibrozil 600 mg tablet 600 mg 1 tab(s), Oral, BID hydralazine 50 mg Tablet 100 mg 2 tab(s), Oral, TID insulin lispro 100 units/mL Soln (3 mL) Give 0-15 units/dose, Subcutaneous, TIDAC insulin R 500units/mL Concentrated 105 unit(s) 0.21 mL, Subcutaneous (INT), acLunch insulin R 500units/mL Concentrated 125 unit(s) 0.25 mL, Subcutaneous (INT), acSupper insulin R 500units/mL Concentrated 115 unit(s) 0.23 mL, Subcutaneous (INT), acBreakfast isosorbide mononitrate 60 mg ER tablet 60 mg 1 tab(s), Oral, qDay levETIRAcetam 500 mg tablet 500 mg 1 tab(s), Oral, BID losartan 100 mg tablet 100 mg 1 tab(s), Oral, qDay mirtazapine 7.5 mg tablet 7.5 mg 1 tab(s), Oral, qHS sertraline 100 mg tablet 100 mg 1 tab(s), Oral, qDay sucralfate 1 gm tablet 1 gram(s) 1 tab(s), Oral, QID tamsulosin 0.4 mg Capsule 0.4 mg 1 cap(s), Oral, BID traZODONE 150 mg Tablet 300 mg 2 tab(s), Oral, qHS Continuous: (1) NS (0.9% nacl) 1,000 mL 1,000 mL, Intravenous, 50 mL/hr PRN: (9) albuterol - ipratropium 2.5 mg-0.5 mg/3 mL Inhal Corrine UD 3 mL, Inhalation, q4hRT dextrose 50% Solution Disp syringe 50 mL 12.5 gram(s) 25 mL, IV Push, AsDirected glucagon recombinant 1 mg 1 mg 1 mL, Subcutaneous, AsDirected hydromorphone 1 mg/mL (1mL) INJ 1 mg 1 mL, IV Push, q2h LORAZEPam 0.5 mg tablet 0.5 mg 1 tab(s), Oral, q4h morphine 2 mg/mL 1 mL syringe 2 mg 1 mL, IV Push, q3h morphine 4 mg/mL 1mL INJ 4 mg 1 mL, IV Push, q3h ondansetron 2 mg/ 1 mL 2 mL INJ 4 mg 2 mL, IV Push, q4h oxyCODONE 10 mg Tab (Immediate Release) 10 mg 1 tab(s), Oral, TIDM Problem list: Medical Chronic kidney disease / SNOMED CT 2618709564 / Confirmed Severe obesity / SNOMED CT 1072426221 / Confirmed Suicide / SNOMED CT 82447779 / Confirmed Peripheral vascular disease / SNOMED CT 6629032061 / Confirmed Insomnia / SNOMED CT 440492350 / Confirmed Neuropathy / SNOMED CT 9065229327 / Confirmed Type 2 diabetes mellitus / SNOMED CT 382129432 / Confirmed COPD - Chronic obstructive pulmonary disease / SNOMED CT 588851551 / Confirmed Hypertension / SNOMED CT 00049204 / Confirmed Atherosclerotic heart disease of [place] coronary artery without angina pectoris / SNOMED CT 423046696070609 / Confirmed Depression / SNOMED CT 586921439 / Confirmed Osteomyelitis / SNOMED CT 19032504 / Confirmed Tobacco user / SNOMED CT 340383797 / Confirmed Hypertriglyceridemia / SNOMED CT 770479741 / Confirmed GERD - Gastro-esophageal reflux disease / SNOMED CT 9349805575 / Confirmed Chronic pain / SNOMED CT 652153828 / Confirmed Hyperkalemia / SNOMED CT 20141096 / Confirmed Transient ischemic attack / SNOMED CT 541349928 / Confirmed Cerebral infarction / SNOMED CT 0686822017 / Confirmed OCD - Obsessive-compulsive disorder / SNOMED CT 402943645 / Confirmed Benign prostatic hyperplasia / SNOMED CT 689457119 / Confirmed Anxiety / SNOMED CT 07497627 / Confirmed CHF - Congestive heart failure / SNOMED CT 467814119 / Confirmed Seizure disorder / SNOMED CT 195435720 / Confirmed, Active Problems (41) Anxiety 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 Benign prostatic hyperplasia BPH with obstruction/lower urinary tract symptoms Cerebral infarction CHF - Congestive heart failure Chronic diastolic heart failure Chronic kidney disease Chronic pain Constipation COPD - Chronic obstructive pulmonary disease Depression ED Care Plan GERD - Gastro-esophageal reflux disease Hereditary and idiopathic neuropathy, unspecified History of transient ischemic attack and cerebral infarction Hyperkalemia Hyperlipidemia Hypertension Hypertensive heart disease with HF (heart failure) Hypertriglyceridemia Hypokalemia Insomnia 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 Family History: Heart disease Mother Father Cancer Mother Father Sister Procedure history: Knee replacement ([id number]). Angioplasty of arterial graft ([id number]). Comments: 10/06/2022 16:20 EDT - Sharon Carr LPN with stent placement Spinal fusion ([id number]). Back ([id number]). Comments: 06/26/2023 14:39 EDT - Velvet Camarena LPN Major bacvk surgery Social History: Social & Psychosocial Habits Alcohol 09/26/2023 Use: Never Substance Abuse 09/26/2023 Use: Never Tobacco 09/26/2023 Tobacco Use: 5-9 cigarettes (between 1 Type: Cigarettes Tobacco use per day: 5 Number of years: 40 Home/Environment 09/26/2023 Living situation: Extended Care Facility Special Services and Community Resources None Marital Status of Patient if Patient Independent Adult: Unmarried Nutrition/Health 09/26/2023 Type of diet: Diabetic Caffeine intake amount: 6 pk a day Appetite Excellent Eating Difficulties None Sexual 09/26/2023 Self described orientation: Straight or heterosexual Physical Examination Vital Signs 09/27/2023 2:59 EDT Temperature Oral 36.4 DegC Peripheral Pulse Rate 61 bpm Respiratory Rate 18 br/min Systolic Blood Pressure Non-Invasive 170 mmHg HI Diastolic Blood Pressure Non-Invasive 97 mmHg HI Blood Pressure Method Automatic Blood Pressure Location Left arm 09/27/2023 0:15 EDT Respiratory Rate 16 br/min 09/26/2023 23:16 EDT Respiratory Rate 18 br/min 09/26/2023 22:04 EDT Systolic Blood Pressure Non-Invasive 177 mmHg HI Diastolic Blood Pressure Non-Invasive 92 mmHg HI 09/26/2023 20:36 EDT Temperature Temporal Artery 36.6 DegC Apical Heart Rate 66 bpm Respiratory Rate 18 br/min Systolic Blood Pressure Non-Invasive 162 mmHg HI Diastolic Blood Pressure Non-Invasive 75 mmHg 09/26/2023 16:37 EDT Temperature Temporal Artery 36.4 DegC Peripheral Pulse Rate 65 bpm (Modified) Respiratory Rate 18 br/min Systolic Blood Pressure Non-Invasive 170 mmHg HI Diastolic Blood Pressure Non-Invasive 83 mmHg 09/26/2023 11:54 EDT Temperature Temporal Artery 36.3 DegC Temperature Tympanic In Error DegC (In Error) Peripheral Pulse Rate 69 bpm Respiratory Rate 18 br/min Systolic Blood Pressure Non-Invasive 142 mmHg HI Diastolic Blood Pressure Non-Invasive 88 mmHg 09/26/2023 9:39 EDT Temperature Oral 36.6 DegC Peripheral Pulse Rate 66 bpm Respiratory Rate 16 br/min Systolic Blood Pressure Non-Invasive 176 mmHg HI Diastolic Blood Pressure Non-Invasive 78 mmHg 09/26/2023 6:15 EDT Temperature Oral 36.4 DegC Peripheral Pulse Rate 70 bpm Respiratory Rate 18 br/min Systolic Blood Pressure Non-Invasive 183 mmHg HI Diastolic Blood Pressure Non-Invasive 93 mmHg HI Vital Signs (last 24 hrs) Last Charted Temp Oral36.4 DegC (SEP 26 02:59) Heart Rate [id number] bpm (SEP 25 20:36) SBPH 170 mmHg (SEP 26 02:59) DBPH 97 mmHg (SEP 26 02:59) Measurements from flowsheet : Measurements 09/26/2023 6:15 EDT Height 177.8 cm Height in inches 70 inch(es) Admission Weight 144.7 kg Weight Lbs 318.3 lb Watkins Body Weight 73.00 kg Type of Scale Used Standing Body Mass Index 45.77 kg/m2 Admission Body Mass Index 45.77 m2 Pain assessment: Pain Assessment 09/27/2023 7:32 EDT Primary Pain Intensity 6 09/27/2023 6:25 EDT Primary Pain Intensity 5 Pain Scale Type 0-10 Pain scale 09/27/2023 5:30 EDT Primary Pain Location Lower back Primary Pain Intensity 6 Pain Scale Type 0-10 Pain scale 09/27/2023 3:55 EDT Pain Scale Assessment 0-10 Pain scale Primary Pain Location Lower back Primary Pain Intensity 7 09/27/2023 2:59 EDT Primary Pain Location Lower back Primary Pain Laterality Mid Primary Pain Intensity 8 Primary Pain Quality Aching Primary Pain Pharma Intervention Medication Primary Pain Non-Pharma Intervention Distraction, Lights dimmed, Rest Pain Scale Type 0-10 Pain scale 09/26/2023 22:51 EDT Pain Scale Assessment 0-10 Pain scale Primary Pain Location Lower back Primary Pain Intensity 5 09/26/2023 22:23 EDT Pain Scale Assessment 0-10 Pain scale Primary Pain Location Lower back Primary Pain Intensity 7 09/26/2023 22:04 EDT Primary Pain Location Lower back Primary Pain Laterality Mid Primary Pain Intensity 7 Primary Pain Quality Aching Primary Pain Pharma Intervention Medication Primary Pain Non-Pharma Intervention Rest, Repositioning Pain Scale Type 0-10 Pain scale 09/26/2023 22:02 EDT Primary Pain Intensity 7 09/26/2023 20:31 EDT Primary Pain Location Lower back Primary Pain Laterality Mid Primary Pain Intensity 7 Primary Pain Quality Aching Primary Pain Pharma Intervention Medication Primary Pain Non-Pharma Intervention Repositioning Pain Scale Type 0-10 Pain scale 09/26/2023 16:54 EDT Pain Scale Assessment 0-10 Pain scale Primary Pain Location Lower back Primary Pain Intensity 3 09/26/2023 16:24 EDT Primary Pain Location Lower back Primary Pain Intensity 6 Pain Scale Type 0-10 Pain scale 09/26/2023 12:24 EDT Pain Scale Assessment 0-10 Pain scale Primary Pain Location Lower back Primary Pain Intensity 5 09/26/2023 11:54 EDT Primary Pain Location Lower back Primary Pain Intensity 7 09/26/2023 10:57 EDT Pain Scale Assessment 0-10 Pain scale Primary Pain Location Lower back Primary Pain Intensity 5 09/26/2023 10:12 EDT Primary Pain Intensity 5 09/26/2023 9:39 EDT Primary Pain Location Lower back Primary Pain Intensity 5 Pain Scale Type 0-10 Pain scale 09/26/2023 6:15 EDT Primary Pain Location Lower back Primary Pain Intensity 5 Pain Scale Type 0-10 Pain scale . General: Alert and oriented. Airway: Normal temporomandibular joint mobility, Normal mouth, Normal throat, Normal neck range of motion, Trachea midline. Mallampati classification: II (soft palate, fauces, uvula visible). Head: Normocephalic. Dentition Evaluation: Own teeth, Missing teeth, Loose teeth, Chipped teeth. Neck: Supple. Respiratory: Lungs are clear to auscultation, Respirations are non-labored. Cardiovascular: Normal rate, Regular rhythm, No murmur. Heart Sounds: Normal. Gastrointestinal: Soft. Musculoskeletal Normal range of motion. Integumentary: Intact, Warm, Dry. Neurologic: Alert, Oriented. Review / Management Results review: Labs (Last four charted values) WBC 4.5(SEP 26)5.5(SEP 25) Hgb L 12.9(SEP 26)L 12.2(SEP 25) Hct L 38.0(SEP 26)L 36.2(SEP 25) Plt L 122(SEP 26)L 125(SEP 25) Na 142(SEP 26)142(SEP 25) K L 3.3(SEP 26)3.6(SEP 25) CO2 28(SEP 26)29(SEP 25) Cl 105(SEP 26)106(SEP 25) Cr H 1.61(SEP 26)H 1.75(SEP 25) BUN H 31.0(SEP 26)H 30.0(SEP 25) Glucose H 181(SEP 26)H 209(SEP 25) Ca 9.2(SEP 26)9.2(SEP 25) PT 11.3(SEP 25) INR 1.0(SEP 25) , Lab results 09/27/2023 7:47 EDT Cardiac Catheterization -CV In Process (In Progress) 09/27/2023 7:42 EDT potassium chloride 40 mEq mEq 09/27/2023 7:32 EDT Primary Pain Intensity 6 HYDROmorphone 1 mg mg 09/27/2023 6:25 EDT Blood Glucose Testing Reason Routine Stated Blood Glucose 135 Primary Pain Intensity 5 Pain Scale Type 0-10 Pain scale Respirations Unlabored Respiratory Pattern Regular Oxygen Therapy Room air Level of Consciousness Alert Activity Status ADL Awake, Resting Standard Safety Safety level maintained High Risk Safety Room check performed Demonstrates Correct Call Light Use Yes 09/27/2023 6:22 EDT carvedilol 50 mg mg isosorbide mononitrate 60 mg mg 09/27/2023 5:30 EDT Primary Pain Location Lower back Primary Pain Intensity 6 Pain Scale Type 0-10 Pain scale Respirations Unlabored Respiratory Pattern Regular Oxygen Therapy Room air Level of Consciousness Alert Activity Status ADL Awake, Resting Standard Safety ID band on, Allergy Band on, Call device within reach, Bed in low position, Wheels locked High Risk Safety Room check performed Demonstrates Correct Call Light Use Yes oxyCODONE 10 mg mg 09/27/2023 3:55 EDT Pain Scale Assessment 0-10 Pain scale Primary Pain Location Lower back Primary Pain Intensity 7 Reason for PRN medication Pain management PRN medication effectiveness Partial PRN Medication Effectiveness Evaluation PRN Medication Effectiveness Evaluation 09/27/2023 3:54 EDT GI Symptoms Nausea, Other: pt states indegestion, feels like its coming back up 09/27/2023 3:48 EDT ondansetron 4 mg mg 09/27/2023 2:59 EDT Temperature Oral 36.4 DegC Peripheral Pulse Rate 61 bpm Respiratory Rate 18 br/min Systolic Blood Pressure Non-Invasive 170 mmHg HI Diastolic Blood Pressure Non-Invasive 97 mmHg HI Blood Pressure Method Automatic Blood Pressure Location Left arm Primary Pain Location Lower back Primary Pain Laterality Mid Primary Pain Intensity 8 Primary Pain Quality Aching Primary Pain Pharma Intervention Medication Primary Pain Non-Pharma Intervention Distraction, Lights dimmed, Rest Pain Scale Type 0-10 Pain scale Cardiovascular Symptoms Edema Heart Sounds ICU S1S2 Heart Rhythm Regular Dorsalis Pedis Pulse, Left 1+ Thready Dorsalis Pedis Pulse, Right 1+ Thready Radial Pulse, Left 2+ Normal Radial Pulse, Right 2+ Normal Leg edema Bilateral Edema Ratin+ trace/2mm Respirations Unlabored Respiratory Pattern Regular Breath Sounds Auscultated Anterior and posterior All Lobes Breath Sounds Clear Oxygen Therapy Room air Oxygen Saturation 96 % Skin Temperature Warm Skin Description Normal for ethnicity Skin Integrity Pressure points intact Skin Moisture General Dry Back Skin Abnormality Type: Surgical incision Incision, Wound Dressing/Activity: Assessed Incision, Wound Dressing Assessment: Clean, Dry, Intact Incision, Wound Dressing: ABD dressing pad Incision, Wound Surrounding Tissue: Normal Continuous IV Infusions ns @ 50ml/hr Forearm Right 09/26/2023 18 gauge Peripheral IV Activity: Assessed Peripheral IV Dressing Condition: Clean, Dry, Intact Peripheral IV Dressing Activity: Transparent dressing Peripheral IV Line Status/Patency: Flushes easily, 10ml normal saline flush, Continuous infusion, Good blood return Peripheral IV Site Condition: No complications Peripheral IV Equipment: IV Pump Neurological Symptoms Patient denies Extremity Movement Equal Characteristics of Speech Clear Level of Consciousness Alert Tone All Extremities Normal Affect/Behavior Appropriate Orientation Oriented x 4 Positioning Repositions self Activity Status ADL Awake Standard Safety Safety level maintained doxycycline 100 mg mg HYDROmorphone 1 mg mg 09/27/2023 2:58 EDT WBC 4.5 10^3/mcL RBC 4.58 10^6/mcL Hgb 12.9 G/dL LOW Hct 38.0 % LOW MCV 82.8 fL MCH 28.2 pg MCHC 34.0 G/dL RDW 15.9 % HI Platelet 122 10^3/mcL LOW MPV 7.0 fL Neutrophil % 64.5 % Lymphocyte % 15.6 % LOW Monocyte % 14.6 % HI Eosinophil % 4.6 % Basophil % 0.7 % Neutrophil, Absolute 2.9 10^3/mcL Lymphocyte, Absolute 0.7 10^3/mcL LOW Monocyte, Absolute 0.7 10^3/mcL Eosinophil, Absolute 0.2 10^3/mcL Basophil, Absolute 0.0 10^3/mcL Glucose Level 181 mg/dL HI Sodium Level 142 mEq/L Potassium Level 3.3 mEq/L LOW Chloride 105 mEq/L CO2 28 mEq/L Electrolyte Balance 9.0 mEq/L BUN 31.0 mg/dL HI Creatinine Lvl (s) 1.61 mg/dL HI BUN/Creatinine Ratio 19.3 ratio Calcium Lvl 9.2 mg/dL GFR Non- 44 ml/min/1.73sqm NA GFR 54 ml/min/1.73sqm NA Creatinine Clearance Calc 52.27 mL/min 09/27/2023 0:15 EDT Respiratory Rate 16 br/min Respirations Unlabored Respiratory Pattern Regular Oxygen Therapy Room air Characteristics of Speech Clear Level of Consciousness Alert Positioning Repositions self NPO Status Initiated Standard Safety Safety level maintained 09/26/2023 23:16 EDT Respiratory Rate 18 br/min Respirations Unlabored Respiratory Pattern Regular Oxygen Therapy Room air Urinary Elimination Voiding, no difficulties Skin Temperature Warm Skin Description Normal for ethnicity Skin Integrity Pressure points intact Skin Moisture General Dry Extremity Movement Equal Characteristics of Speech Clear Level of Consciousness Alert Tone All Extremities Normal Affect/Behavior Appropriate Orientation Oriented x 4 Positioning Repositions self Mobility Assistance Level Independent Activity Status ADL Awake, Up ad kenyatta Standard Safety Safety level maintained Demonstrates Correct Call Light Use Yes 09/26/2023 22:51 EDT Pain Scale Assessment 0-10 Pain scale Primary Pain Location Lower back Primary Pain Intensity 5 Reason for PRN medication Pain management PRN medication effectiveness Partial PRN Medication Effectiveness Evaluation PRN Medication Effectiveness Evaluation 09/26/2023 22:27 EDT Continuous IV Infusions ns @ 50ml/hr Forearm Right 09/26/2023 18 gauge Peripheral IV Activity: Assessed Peripheral IV Dressing Condition: Clean, Dry, Intact Peripheral IV Dressing Activity: Transparent dressing Peripheral IV Line Status/Patency: Flushes easily, Continuous infusion Peripheral IV Site Condition: No complications Peripheral IV Equipment: IV Pump Individuals Taught Patient Learning Readiness Willing to learn Barriers to Learning None evident Teaching Method Explanation Preferred Spoken Language Lao General Infection Prevention Strategies Hand hygiene, Respiratory hygiene - Cover Your Cough, Infection Signs & Symptoms Surgical Site Infection Prevention Hand hygiene Infection Prevention Teaching Evaluation Verbalizes/Nonverbally indicates understanding 09/26/2023 22:23 EDT Pain Scale Assessment 0-10 Pain scale Primary Pain Location Lower back Primary Pain Intensity 7 Reason for PRN medication Pain management PRN medication effectiveness No PRN Medication Effectiveness Evaluation PRN Medication Effectiveness Evaluation 09/26/2023 22:04 EDT Systolic Blood Pressure Non-Invasive 177 mmHg HI Diastolic Blood Pressure Non-Invasive 92 mmHg HI Primary Pain Location Lower back Primary Pain Laterality Mid Primary Pain Intensity 7 Primary Pain Quality Aching Primary Pain Pharma Intervention Medication Primary Pain Non-Pharma Intervention Rest, Repositioning Pain Scale Type 0-10 Pain scale Respirations Unlabored Respiratory Pattern Regular Oxygen Therapy Room air Skin Temperature Warm Skin Description Normal for ethnicity Skin Integrity Pressure points intact Skin Moisture General Dry Back Skin Abnormality Type: Surgical incision Incision, Wound Dressing/Activity: Dressing Applied Incision, Wound Dressing Assessment: Clean, Dry, Intact Incision, Wound Dressing: ABD dressing pad Incision, Wound Surrounding Tissue: Normal Neurological Symptoms Patient denies Extremity Movement Equal Characteristics of Speech Clear Level of Consciousness Alert Tone All Extremities Normal Affect/Behavior Appropriate Orientation Oriented x 4 Assistive Device Walker Positioning Repositions self Mobility Assistance Level Supervision Up to Chair Remains up in chair Activity Status ADL Awake Standard Safety ID band on, Allergy Band on, Call device within reach, Bed in low position, Wheels locked Demonstrates Correct Call Light Use Yes carvedilol 50 mg mg cloNIDine 0.3 mg mg DULoxetine 30 mg mg fluticasone nasal 50 mcg mcg gabapentin 800 mg mg gemfibrozil 600 mg mg hydrALAZINE 100 mg mg levETIRAcetam 500 mg mg losartan 100 mg mg mirtazapine 7.5 mg mg sertraline 100 mg mg sucralfate 1 gram(s) gram(s) tamsulosin 0.4 mg mg traZODone 300 mg mg 09/26/2023 22:02 EDT Primary Pain Intensity 7 HYDROmorphone 1 mg mg 09/26/2023 20:36 EDT Temperature Temporal Artery 36.6 DegC Apical Heart Rate 66 bpm Respiratory Rate 18 br/min Systolic Blood Pressure Non-Invasive 162 mmHg HI Diastolic Blood Pressure Non-Invasive 75 mmHg Dorsalis Pedis Pulse, Left 1+ Thready Dorsalis Pedis Pulse, Right 1+ Thready Radial Pulse, Left 1+ Thready Radial Pulse, Right 1+ Thready Respirations Unlabored Respiratory Pattern Regular Breath Sounds Auscultated Anterior only All Lobes Breath Sounds Clear Oxygen Therapy Room air Oxygen Saturation 94 % Skin Temperature Warm Skin Description [place], Dry Back Skin Abnormality Type: Surgical incision Incision, Wound Dressing/Activity: Assessed Incision, Wound Dressing: Open to air Wound Exudate Amount: Scant Wound Exudate Type: Serosanguineous Incision, Wound Surrounding Tissue: Normal Activity Status ADL Up to bathroom, Other: returned to chair Standard Safety ID band on, Allergy Band on, Call device within reach, Bed in low position, Wheels locked, Upper/Half-Length side-rails up, Phone within reach, personal items within reach 09/26/2023 20:31 EDT Primary Pain Location Lower back Primary Pain Laterality Mid Primary Pain Intensity 7 Primary Pain Quality Aching Primary Pain Pharma Intervention Medication Primary Pain Non-Pharma Intervention Repositioning Pain Scale Type 0-10 Pain scale Neurological Symptoms Patient denies Level of Consciousness Alert Affect/Behavior Cooperative, Anxious Orientation Oriented x 4 oxyCODONE 10 mg mg 09/26/2023 19:29 EDT Notify date/time 09/26/2023 19:29 Notification Method Answering service Information Communicated Medication request Details Communicated half of the patient medications have not been ordered for night and he is asking about them. 09/26/2023 18:08 EDT Sodium Chloride 0.9% Begin Bag 1,000 mL mL 09/26/2023 17:57 EDT insulin lispro 15 unit(s) unit(s) insulin CONCENTRATED 500units/mL Regular 125 unit(s) unit(s) 09/26/2023 17:53 EDT Stated Blood Glucose 278 Time of Stated Blood Glucose 09/26/2023 17:53 Activity Status ADL Up ad kenyatta, Watching TV Standard Safety Safety level maintained 09/26/2023 17:13 EDT Stated Blood Glucose 273 Time of Stated Blood Glucose 09/26/2023 17:13 09/26/2023 16:54 EDT Pain Scale Assessment 0-10 Pain scale Primary Pain Location Lower back Primary Pain Intensity 3 Reason for PRN medication Pain management PRN medication effectiveness Partial PRN Medication Effectiveness Evaluation PRN Medication Effectiveness Evaluation 09/26/2023 16:51 EDT insulin lispro Not Done: Task Duplication (Not Done) 09/26/2023 16:37 EDT Temperature Temporal Artery 36.4 DegC Peripheral Pulse Rate 65 bpm (Modified) Respiratory Rate 18 br/min Systolic Blood Pressure Non-Invasive 170 mmHg HI Diastolic Blood Pressure Non-Invasive 83 mmHg Oxygen Saturation 94 % (Modified) Forearm Right 09/26/2023 18 gauge Peripheral IV Activity: Assessed Peripheral IV Dressing Condition: Clean, Dry, Intact Peripheral IV Site Condition: No complications Level of Consciousness Alert Activity Status ADL Watching TV Standard Safety Safety level maintained cloNIDine 0.3 mg mg gabapentin 800 mg mg hydrALAZINE 100 mg mg 09/26/2023 16:24 EDT Primary Pain Location Lower back Primary Pain Intensity 6 Pain Scale Type 0-10 Pain scale HYDROmorphone 1 mg mg 09/26/2023 14:54 EDT Activity Status ADL Resting, Sleeps intermittently Standard Safety Safety level maintained 09/26/2023 13:30 EDT Pulmonary Status Not Done: Task Duplication (Not Done) Surgical Status Not Done: Task Duplication (Not Done) Chest X-Ray Not Done: Task Duplication (Not Done) Respiratory Pattern (RT) Not Done: Task Duplication (Not Done) Breath Sounds (RT) Not Done: Task Duplication (Not Done) Cough (RT) Not Done: Task Duplication (Not Done) Level of Activity Not Done: Task Duplication (Not Done) Mental Status (RT) Not Done: Task Duplication (Not Done) Respiratory Therapy Evaluation Score Not Done: Task Duplication (Not Done) Respiratory Evaluation Triage Score Not Done: Task Duplication (Not Done) RT Assessment [Frequency/Schedule] Not Done: Task Duplication (Not Done) RT Evaluation Steps Not Done: Task Duplication (Not Done) 09/26/2023 13:24 EDT Pulmonary Status Non-smoker, no previous history Surgical Status No surgery Chest X-Ray Clear/none available/older than 3 days Respiratory Pattern (RT) RR 10-20 BPM, Regular pattern Breath Sounds (RT) Diminished due to poor inspiratory effort Cough (RT) Strong, non-productive Level of Activity Ambulatory with assistance Mental Status (RT) Alert, oriented and cooperative Respiratory Therapy Evaluation Score 2 Respiratory Evaluation Triage Score (0-5) Freq: Q4RT prn RT Assessment [Frequency/Schedule] Change medication frequency to home regimen RT Evaluation Steps Chart review completed, Assessment completed: RR, HR, Auscultation, Cough, Patient Interview completed Respiratory Therapy Progress Note Respiratory Therapy Evaluation 09/26/2023 13:00 EDT albuterol-ipratropium Not Done: Patient Refused (Not Done) 09/26/2023 12:35 EDT carvedilol 50 mg mg cloNIDine 0.3 mg mg dapagliflozin 10 mg mg DULoxetine 30 mg mg finasteride 5 mg mg fluticasone nasal 50 mcg mcg gabapentin 800 mg mg gemfibrozil 600 mg mg 09/26/2023 12:24 EDT Pain Scale Assessment 0-10 Pain scale Primary Pain Location Lower back Primary Pain Intensity 5 Reason for PRN medication Pain management PRN medication effectiveness Partial PRN Medication Effectiveness Evaluation PRN Medication Effectiveness Evaluation 09/26/2023 12:10 EDT Stated Blood Glucose 286 Time of Stated Blood Glucose 09/26/2023 12:10 Notify date/time 09/26/2023 12:10 Provider Notified TOÑITO VELA MD Notification Method Pager Information Communicated Nurse communication Details Communicated nurse requesting admission med rec to be completed Details of Results Received Dr. Vela is out of hospital - RN attempting to reach fellow to complete the med rec Forearm Right 09/26/2023 18 gauge Peripheral IV Activity: Assessed Peripheral IV Dressing Condition: Clean, Dry, Intact Peripheral IV Site Condition: No complications 09/26/2023 11:54 EDT Temperature Temporal Artery 36.3 DegC Temperature Tympanic In Error DegC (In Error) Peripheral Pulse Rate 69 bpm Respiratory Rate 18 br/min Systolic Blood Pressure Non-Invasive 142 mmHg HI Diastolic Blood Pressure Non-Invasive 88 mmHg Primary Pain Location Lower back Primary Pain Intensity 7 Cardiovascular Symptoms Edema Murmur Auscultated No Dorsalis Pedis Pulse, Left 1+ Thready Dorsalis Pedis Pulse, Right 1+ Thready Radial Pulse, Left 1+ Thready Radial Pulse, Right 1+ Thready Respirations Unlabored Respiratory Pattern Regular All Lobes Breath Sounds Clear, Equal Cough None Oxygen Therapy Room air Oxygen Saturation 94 % Abdomen Description Non-distended, Soft, Rounded Abdomen Palpation Non-Tender, Soft Bowel Sounds All Quadrants Present Urinary Elimination Voiding, no difficulties Skin Symptoms Change in skin color Skin Temperature Warm Skin Description [place], Dry Skin Integrity Intact, Not intact Mucous Membrane Color [place] Back Skin Abnormality Type: Surgical incision Incision, Wound Dressing/Activity: Assessed Incision, Wound Dressing Assessment: Clean, Dry, Intact Wound Exudate Amount: None Incision, Wound Surrounding Tissue: Normal Wound Associated Pain: With activity, mobilization Neurological Symptoms Patient denies Extremity Movement Equal Characteristics of Speech Clear Level of Consciousness Alert Strength All Extremities Moderate Tone All Extremities Normal Sensation All Extremities Intact Affect/Behavior Appropriate, Calm, Cooperative Orientation Oriented x 4 Positioning Repositions self Activity Status ADL Awake Standard Safety Safety level maintained amLODIPine 10 mg mg docusate 100 mg mg hydrALAZINE 100 mg mg HYDROmorphone 1 mg mg 09/26/2023 11:35 EDT doxycycline Not Done: Med Not Available (Not Done) 09/26/2023 10:57 EDT Pain Scale Assessment 0-10 Pain scale Primary Pain Location Lower back Primary Pain Intensity 5 Reason for PRN medication Pain management PRN medication effectiveness No PRN Medication Effectiveness Evaluation PRN Medication Effectiveness Evaluation 09/26/2023 10:12 EDT Primary Pain Intensity 5 morphine 4 mg mg 09/26/2023 9:39 EDT Temperature Oral 36.6 DegC Peripheral Pulse Rate 66 bpm Respiratory Rate 16 br/min Systolic Blood Pressure Non-Invasive 176 mmHg HI Diastolic Blood Pressure Non-Invasive 78 mmHg Primary Pain Location Lower back Primary Pain Intensity 5 Pain Scale Type 0-10 Pain scale Oxygen Therapy Room air Oxygen Saturation 94 % Tolerating Oral Intake Yes Level of Consciousness Alert Affect/Behavior Appropriate, Calm, Cooperative Orientation Oriented x 4 Positioning Repositions self Breakfast Percent 100 % 09/26/2023 9:30 EDT HL Same Day (Pre & Post) Record HL Same Day (Pre & Post) Record 09/26/2023 9:00 EDT Oral Intake 480 mL Urine Count 1 EA 09/26/2023 8:26 EDT Cardiac Catheterization -CV Arrived (In Progress) 09/26/2023 7:46 EDT WBC 5.5 10^3/mcL RBC 4.36 10^6/mcL LOW Hgb 12.2 G/dL LOW Hct 36.2 % LOW MCV 83.1 fL MCH 28.1 pg MCHC 33.8 G/dL RDW 16.1 % HI Platelet 125 10^3/mcL LOW MPV 7.3 fL Neutrophil % 69.6 % Lymphocyte % 14.3 % LOW Monocyte % 11.5 % Eosinophil % 3.9 % Basophil % 0.7 % Neutrophil, Absolute 3.8 10^3/mcL Lymphocyte, Absolute 0.8 10^3/mcL LOW Monocyte, Absolute 0.6 10^3/mcL Eosinophil, Absolute 0.2 10^3/mcL Basophil, Absolute 0.0 10^3/mcL Protime 11.3 seconds PT International Ratio 1.0 ratio NA Glucose Level 209 mg/dL HI Sodium Level 142 mEq/L Potassium Level 3.6 mEq/L Chloride 106 mEq/L CO2 29 mEq/L Electrolyte Balance 7.0 mEq/L BUN 30.0 mg/dL HI Creatinine Lvl (s) 1.75 mg/dL HI BUN/Creatinine Ratio 17.1 ratio Calcium Lvl 9.2 mg/dL GFR Non- 40 ml/min/1.73sqm NA GFR 49 ml/min/1.73sqm NA Creatinine Clearance Calc 48.09 mL/min Forearm Right 09/26/2023 18 gauge Peripheral IV Activity: Insert new site Peripheral IV Dressing Condition: Clean, Dry, Intact Peripheral IV Dressing Activity: Transparent dressing Peripheral IV Line Status/Patency: Flushes easily Peripheral IV Site Condition: No complications Peripheral IV Equipment: PRN Adaptor Peripheral IV Number of Attempts: 3 09/26/2023 7:37 EDT Forearm Right 09/26/2023 18 gauge Peripheral IV Activity: Bedside IV start by ultrasound guidance Peripheral IV Dressing Condition: Clean, Dry, Intact Peripheral IV Dressing Activity: Transparent dressing Peripheral IV Line Status/Patency: Flushes easily, Aspirated, Good blood return Peripheral IV Line Care: Date/time/initials present Peripheral IV Site Condition: No complications Peripheral IV Equipment: PRN Adaptor 09/26/2023 7:04 EDT SN - Preop - CTm - Pt in HL SD Room 09/26/2023 6:15 SN - Preop - CTm - HL Pt Ready for Procedure 09/26/2023 7:03 09/26/2023 6:45 EDT aspirin 325 mg mg 09/26/2023 6:15 EDT Designated Person #1 We [employer] PHI Call tommy for ride [phone] Designated Person #1 Relationship Other: Ride from [facility] Privacy Restrictions Requested None Height 177.8 cm Height in inches 70 inch(es) Admission Weight 144.7 kg Weight Lbs 318.3 lb Watkins Body Weight 73.00 kg Type of Scale Used Standing Body Mass Index 45.77 kg/m2 Admission Body Mass Index 45.77 m2 Temperature Oral 36.4 DegC Peripheral Pulse Rate 70 bpm Respiratory Rate 18 br/min Systolic Blood Pressure Non-Invasive 183 mmHg HI Diastolic Blood Pressure Non-Invasive 93 mmHg HI Primary Pain Location Lower back Primary Pain Intensity 5 Pain Scale Type 0-10 Pain scale Cardiovascular Symptoms Edema Nail Bed Color [place] Capillary Refill < 2 seconds Heart Sounds ICU S1S2 Heart Rhythm Regular Dorsalis Pedis Pulse, Left Doppler Dorsalis Pedis Pulse, Right Doppler Radial Pulse, Left 1+ Thready Radial Pulse, Right 1+ Thready Leg edema Bilateral Edema Ratin+ mild/4mm Respirations Unlabored Respiratory Pattern Regular Breath Sounds Auscultated Anterior and posterior All Lobes Breath Sounds Clear, Diminished Cough None Oxygen Therapy Room air Oxygen Saturation 91 % LOW Abdomen Description Non-distended Abdomen Palpation Non-Tender Bowel Sounds All Quadrants Present Urinary Elimination Voiding, no difficulties Urine Color Yellow Urine Description Clear Status N/A Skin Symptoms Change in skin color, Ulcers/Lesions All Extremity Description [place] Skin Temperature Warm Temperature All Extremities Warm Skin Description [place], Dry Skin Integrity Not intact Mucous Membrane Color [place] Back Skin Abnormality Type: Surgical incision Incision, Wound Dressing/Activity: Assessed Incision, Wound Dressing Assessment: Clean, Dry, Intact Wound Exudate Amount: None Incision, Wound Surrounding Tissue: Normal Wound Associated Pain: With activity, mobilization Neurological Symptoms Patient denies Extremity Movement Equal Characteristics of Speech Clear Level of Consciousness Alert PAULA Yes Strength All Extremities Moderate Tone All Extremities Normal Violence Risk Confused No Violence Risk Irritable No Violence Risk Boisterous No Violence Risk Verbal Threats No Violence Risk Physical Threats No Violence Risk Attacking Objects No Violence Risk Predictor Score 0 Violence Risk Intervention None Violence Risk Current Interventions None Affect/Behavior Appropriate, Calm, Cooperative Orientation Oriented x 4 Sensory Deficits None Sleep Apnea Snore No Sleep Apnea Tired Yes Sleep Apnea Obstruction No Sleep Apnea Pressure Yes Sleep Apnea BMI No Sleep Apnea Age Yes Sleep Apnea Neck No Sleep Apnea Gender Yes Sleep Apnea Score 4 Diagnosed With Sleep Apnea No Advanced Directives Yes Advance Directive Type [place] Declaration (Living Will) Advance Directive Location Family instructed to bring in copy Infectious Disease Symptoms Patient states no symptoms Infectious Disease Recent Exposure No Alcohol and Drug Use No Employee of Institutional Living No Health Care Employee No History of Exposure to TB No History of Positive Chest X-Ray for TB No History of Positive TB Skin Test No Homeless No Known Immunosuppression No Recent Immigrant No Resident of Institutional Living No Bloody Sputum No Fatigue No Fever No Loss of Appetite No Night Sweats No Persistent Cough > 3 Weeks No Weight Loss No Allergies Yes Consent Form Signed Yes Patient Dressed In Hospital gown, No undergarments Barriers to Learning No (more content not included)... [id number] Note* Exam Date Time Procedure Performing Provider Status 09/27/23 7:47 AM Cardiac Catheterization -CV Modified [facility] 07-09-2024 Respiratory therapy Hospital Progress note Respiratory Therapy Evaluation Entered On: 09/26/2023 13:24 EDT Performed On: 09/26/2023 13:24 EDT by Subha Ortiz RRT Respiratory Therapy Evaluation Pulmonary Status : Non-smoker, no previous history Respiratory Therapy Evaluation Score : 2 RT Evaluation Steps : Chart review completed, Assessment completed: RR, HR, Auscultation, Cough, Patient Interview completed Respiratory Evaluation Triage Score : (0-5) Freq: Q4RT prn RT Assessment [Frequency/Schedule] : Change medication frequency to home regimen (Comment: pt takes treatments PRN at home, will call if he needs a treatment [Subha Ortiz PROFESSIONAL PROGRAMMER ANALYST- 09/26/2023 13:25 EDT] ) Subha Ortiz RRT - 09/26/2023 13:25 EDT Surgical Status : No surgery Chest X-Ray : Clear/none available/older than 3 days Respiratory Pattern (RT) : RR 10-20 BPM, Regular pattern Breath Sounds (RT) : Diminished due to poor inspiratory effort Cough (RT) : Strong, non-productive Level of Activity : Ambulatory with assistance Mental Status : Alert, oriented and cooperative Subha Ortiz PROFESSIONAL PROGRAMMER ANALYST - 09/26/2023 13:24 EDT Digitally Signed by Subha Ortiz PROFESSIONAL PROGRAMMER ANALYST on 09/26/2023 01:25 PM [facility] [id number] Discharge summary Date of Service 07/31/23 Discharge Diagnosis Severe back pain prohibiting procedures/coronary angiography Hospital Course 57-year-old male who presented for an elective coronary angiogram, does have history of stents withunknown anatomy, for episodic chest pain. Unfortunately patient was unable to tolerate laying flat on the Legal Billing Specialist table due to severe back pain has a history of multiple back surgeries. Discussed arranging to repeat the procedure with anesthesia in the future. Patient in agreement. Allergies HYDROcodone Bitartrate (Unknown) Haldol (Unknown) acetaminophen (Unknown) fentaNYL ibuprofen (affects kidneys) Procedures Canceled coronary angiography Consults No qualifying data available. Physical Exam Vitals and Measurements T: 36.7 C (Oral) HR: 70 BP: 179/91 SpO2: 90% HT: 177.8 cm WT: 149.5 kg Weight Dosing Weight: 149.5 kg (07/31/23) Constitutional: no distress, appears stated age ENT: No thyroid masses Respiratory: Clear to auscultation, no adventitious sounds Cardiovascular: RRR, S1 and S2, no murmurs, JVP 8-10 cm H2O, no pedal edema GI: Soft, nondistended, bowel sounds present Musculoskeletal: no deformity Skin: Warm to touch, dry Neurological: Alert and oriented Code Status No qualifying data available. Admission Date 07/31/23 Discharge Date 07/31/23 Medications Unchanged albuterol-ipratropium (albuterol-ipratropium 2.5 mg-0.5 mg/3 mL inhalation solution)3 Milliliter byinhalation every 6 hours. amLODIPine (amLODIPine 10 mg oral tablet)1 tab(s) by mouth once a day. ascorbic acid (ascorbic acid 500 mg oral capsule)1 cap by mouth once a day. aspirin (aspirin 81 mg oral delayed release tablet)1 tab(s) by mouth every day. carvedilol (carvedilol 25 mg oral tablet)2 tab(s) by mouth two (2) times a day. cholecalciferol (Vitamin D3 125 mcg (5000 intl units) oral capsule)1 cap by mouth once a day. with food. cloNIDine (cloNIDine 0.3 mg oral tablet)1 tab(s) by mouth three (3) times a day. cyclobenzaprine (cyclobenzaprine 10 mg oral tablet)1 tab(s) by mouth four (4) times a day as neededas needed for spasm. dapagliflozin (Farxiga 10 mg oral tablet)1 tab(s) by mouth once a day. docusate (docusate sodium 100 mg oral tablet)1 tab(s) by mouth once a day. doxycycline (doxycycline hyclate 100 mg oral tablet)1 tab(s) by mouth two (2) times a day. dulaglutide (Trulicity Pen 1.5 mg/0.5 mL subcutaneous solution)0.5 Milliliter Subcutaneous every Monday. DULoxetine (DULoxetine 30 mg oral delayed release capsule)1 cap by mouth two (2) times a day. do not crush or chew. finasteride (finasteride 5 mg oral tablet)1 tab(s) by mouth once a day. fluticasone nasal (fluticasone proprionate NASAL 50 mcg/ spray)1 spray(s) each nostril two (2) times a day. furosemide (furosemide 40 mg oral tablet)1 tab(s) by mouth every Sun / / / Sat. QD. furosemide (furosemide 40 mg oral tablet)1 tab(s) by mouth Monday / Monday / Monday. BID. gabapentin (gabapentin 800 mg oral tablet)1 tab(s) by mouth three (3) times a day. gemfibrozil (gemfibrozil 600 mg oral tablet)1 tab(s) by mouth two (2) times a day. glucagon (glucagon 1 mg injection)1 Each Subcutaneous As Directed as needed for low blood sugar. guaiFENesin (Rachael-Tussin Expectorant 100 mg/5 mL oral liquid)10 Milliliter by mouth every 4 hours as needed Cough. hydrALAZINE (hydrALAZINE 100 mg oral tablet)1 tab(s) by mouth three (3) times a day. insulin aspart (Novolog) (NovoLOG 100 units/mL injectable solution) insulin regular (HumuLIN R KwikPEN (CONCENTRATED) insulin 500 units/mL 3 mL)160 unit(s) Subcutaneous (INT) once a day. SEE LONGTERM MED LIST, ON LIST X3 NO INSTRUCTIONS ON TIME OF DOSE. isosorbide mononitrate (isosorbide mononitrate 60 mg oral tablet, extended release)1 tab(s) by mouth once a day. levETIRAcetam (Keppra 500 mg oral tablet)1 tab(s) by mouth two (2) times a day. loperamide (loperamide 2 mg oral capsule)1 cap by mouth every 4 hours as needed for loose stool. losartan (losartan 100 mg oral tablet)1 tab(s) by mouth once a day. melatonin (melatonin 3 mg oral tablet)1 tab(s) by mouth daily at bedtime as needed as needed for insomnia. menthol topical (Biofreeze 4% topical gel)1 application Topical three (3) times a day as needed as needed for pain. mirtazapine (mirtazapine 7.5 mg oral tablet)1 tab(s) by mouth daily at bedtime. ondansetron (ondansetron 4 mg oral tablet)1 tab(s) by mouth every 8 hours as needed Nausea/Vomiting. oxyCODONE (oxyCODONE 10 mg oral tablet ( IMMEDIATE release ))1 tab(s) by mouth three (3) times a day with meals as needed as needed for pain. pantoprazole (pantoprazole 40 mg oral enteric coated tablet)1 tab(s) by mouth once a day (in the morning). polyethylene glycol 3350 (MiraLax oral powder for reconstitution)17 gram(s) by mouth once a day as needed Constipation. rosuvastatin (rosuvastatin 40 mg oral tablet)1 tab(s) by mouth once a day. sertraline (sertraline 100 mg oral tablet)1 tab(s) by mouth once a day. sucralfate (Carafate 1 g oral tablet)1 tab(s) by mouth four (4) times a day. tamsulosin (tamsulosin 0.4 mg oral capsule)1 cap by mouth two (2) times a day. traZODone (traZODone 300 mg oral tablet)1 tab(s) by mouth daily at bedtime. Follow Up Follow Up with TOÑITO VELA MD When 09/27/2023 01:15 PM EDT Why: THIS APPOINTMENT WILL BE WITH DR. INTERIANO Where: [address] [facility] [place] [address]- [phone] Follow Up Appointments No qualifying data available. Follow Up Labs/Studies Discharge Labs No Follow-up Labs Discharge Studies No Follow-up Studies Discharge Diet No qualifying data available. Discharge Activity No qualifying data available. Condition on Discharge stable Discharge Disposition home Digitally Signed by MICHELLE PARKER MD on 07/31/2023 10:26 AM [facility] [id number] Hospital Discharge instructions Patient Education 07/31/2023 10:17:58 Cardiac SD - Discharge Instructions for Cancelled Procedures 10/2021(CUSTOM) DISCHARGE INSTRUCTIONS FOR CANCELLED PROCEDURES DIET Resume your regular diet that you had before your procedure unless otherwise instructed. ACTIVITY Resume your previous activities as tolerated unless otherwise instructed. IV DRESSING/WOUND CARE If you have had an IV inserted, you can remove the gauze dressing in 1 hour. CALL YOUR DOCTOR IF: You develop any new redness, swelling, or drainage around your IV insertion site. You have a temperature of 101 degrees or higher. PAIN Follow your doctors' instructions for pain management. You can take your usual [id number] pain medication unless otherwise directed. HAND WASHING Always wash your hands before and after touching the IV insertion/dressing site. Frequent hand washing is the best way to prevent the spread of infection. FOLLOW-UP Keep your follow-up appointment. If an appointment has not been made for you, call your doctor's office to schedule. If you have any concerns before your appointment, call your doctor's office. Follow Up Care 06/28/2023 10:31:35 With:TOÑITO VELA MD Address: [address] [facility] [place] [address]- [phone] When:09/27/2023 13:15:00 Comments:THIS APPOINTMENT WILL BE WITH DR. INTERIANO [facility] 05-13-2024 Discharge summary Date of Service 07/31/23 Discharge Diagnosis Severe back pain prohibiting procedures/coronary angiography Hospital Course 57-year-old male who presented for an elective coronary angiogram, does have history of stents withunknown anatomy, for episodic chest pain. Unfortunately patient was unable to tolerate laying flat on the Legal Billing Specialist table due to severe back pain has a history of multiple back surgeries. Discussed arranging to repeat the procedure with anesthesia in the future. Patient in agreement. Allergies HYDROcodone Bitartrate (Unknown) Haldol (Unknown) acetaminophen (Unknown) fentaNYL ibuprofen (affects kidneys) Procedures Canceled coronary angiography Consults No qualifying data available. Physical Exam Vitals and Measurements T: 36.7 C (Oral) HR: 70 BP: 179/91 SpO2: 90% HT: 177.8 cm WT: 149.5 kg Weight Dosing Weight: 149.5 kg (07/31/23) Constitutional: no distress, appears stated age ENT: No thyroid masses Respiratory: Clear to auscultation, no adventitious sounds Cardiovascular: RRR, S1 and S2, no murmurs, JVP 8-10 cm H2O, no pedal edema GI: Soft, nondistended, bowel sounds present Musculoskeletal: no deformity Skin: Warm to touch, dry Neurological: Alert and oriented Code Status No qualifying data available. Admission Date 07/31/23 Discharge Date 07/31/23 Medications Unchanged albuterol-ipratropium (albuterol-ipratropium 2.5 mg-0.5 mg/3 mL inhalation solution)3 Milliliter byinhalation every 6 hours. amLODIPine (amLODIPine 10 mg oral tablet)1 tab(s) by mouth once a day. ascorbic acid (ascorbic acid 500 mg oral capsule)1 cap by mouth once a day. aspirin (aspirin 81 mg oral delayed release tablet)1 tab(s) by mouth every day. carvedilol (carvedilol 25 mg oral tablet)2 tab(s) by mouth two (2) times a day. cholecalciferol (Vitamin D3 125 mcg (5000 intl units) oral capsule)1 cap by mouth once a day. with food. cloNIDine (cloNIDine 0.3 mg oral tablet)1 tab(s) by mouth three (3) times a day. cyclobenzaprine (cyclobenzaprine 10 mg oral tablet)1 tab(s) by mouth four (4) times a day as neededas needed for spasm. dapagliflozin (Farxiga 10 mg oral tablet)1 tab(s) by mouth once a day. docusate (docusate sodium 100 mg oral tablet)1 tab(s) by mouth once a day. doxycycline (doxycycline hyclate 100 mg oral tablet)1 tab(s) by mouth two (2) times a day. dulaglutide (Trulicity Pen 1.5 mg/0.5 mL subcutaneous solution)0.5 Milliliter Subcutaneous every Monday. DULoxetine (DULoxetine 30 mg oral delayed release capsule)1 cap by mouth two (2) times a day. do not crush or chew. finasteride (finasteride 5 mg oral tablet)1 tab(s) by mouth once a day. fluticasone nasal (fluticasone proprionate NASAL 50 mcg/ spray)1 spray(s) each nostril two (2) times a day. furosemide (furosemide 40 mg oral tablet)1 tab(s) by mouth every Mon / / / Sat. QD. furosemide (furosemide 40 mg oral tablet)1 tab(s) by mouth Monday / Monday / Monday. BID. gabapentin (gabapentin 800 mg oral tablet)1 tab(s) by mouth three (3) times a day. gemfibrozil (gemfibrozil 600 mg oral tablet)1 tab(s) by mouth two (2) times a day. glucagon (glucagon 1 mg injection)1 Each Subcutaneous As Directed as needed for low blood sugar. guaiFENesin (Rachael-Tussin Expectorant 100 mg/5 mL oral liquid)10 Milliliter by mouth every 4 hours as needed Cough. hydrALAZINE (hydrALAZINE 100 mg oral tablet)1 tab(s) by mouth three (3) times a day. insulin aspart (Novolog) (NovoLOG 100 units/mL injectable solution) insulin regular (HumuLIN R KwikPEN (CONCENTRATED) insulin 500 units/mL 3 mL)160 unit(s) Subcutaneous (INT) once a day. SEE LONGTERM MED LIST, ON LIST X3 NO INSTRUCTIONS ON TIME OF DOSE. isosorbide mononitrate (isosorbide mononitrate 60 mg oral tablet, extended release)1 tab(s) by mouth once a day. levETIRAcetam (Keppra 500 mg oral tablet)1 tab(s) by mouth two (2) times a day. loperamide (loperamide 2 mg oral capsule)1 cap by mouth every 4 hours as needed for loose stool. losartan (losartan 100 mg oral tablet)1 tab(s) by mouth once a day. melatonin (melatonin 3 mg oral tablet)1 tab(s) by mouth daily at bedtime as needed as needed for insomnia. menthol topical (Biofreeze 4% topical gel)1 application Topical three (3) times a day as needed as needed for pain. mirtazapine (mirtazapine 7.5 mg oral tablet)1 tab(s) by mouth daily at bedtime. ondansetron (ondansetron 4 mg oral tablet)1 tab(s) by mouth every 8 hours as needed Nausea/Vomiting. oxyCODONE (oxyCODONE 10 mg oral tablet ( IMMEDIATE release ))1 tab(s) by mouth three (3) times a day with meals as needed as needed for pain. pantoprazole (pantoprazole 40 mg oral enteric coated tablet)1 tab(s) by mouth once a day (in the morning). polyethylene glycol 3350 (MiraLax oral powder for reconstitution)17 gram(s) by mouth once a day as needed Constipation. rosuvastatin (rosuvastatin 40 mg oral tablet)1 tab(s) by mouth once a day. sertraline (sertraline 100 mg oral tablet)1 tab(s) by mouth once a day. sucralfate (Carafate 1 g oral tablet)1 tab(s) by mouth four (4) times a day. tamsulosin (tamsulosin 0.4 mg oral capsule)1 cap by mouth two (2) times a day. traZODone (traZODone 300 mg oral tablet)1 tab(s) by mouth daily at bedtime. Follow Up Follow Up with TOÑITO VELA MD When 09/27/2023 01:15 PM EDT Why: THIS APPOINTMENT WILL BE WITH DR. INTERIANO Where: [address] [place] [address]- [phone] Follow Up Appointments No qualifying data available. Follow Up Labs/Studies Discharge Labs No Follow-up Labs Discharge Studies No Follow-up Studies Discharge Diet No qualifying data available. Discharge Activity No qualifying data available. Condition on Discharge stable Discharge Disposition home Digitally Signed by MICHELLE PARKER MD on 07/31/2023 10:26 AM [facility] [id number] Summary of episode note Discharge Instructions Thank you for allowing [facility] to assist you with your healthcare needs. The following is importantdischarge information regarding your hospital visit. Your Care Team STACEY COULTER MD What to do next Scheduled Follow-Up Appointments Appointment Type When Where Contact InformationCV OV 09/27/2023 01:15 PM EDT [facility] Follow Up Appointments Follow Up with TOÑITO VELA MD When 09/27/2023 01:15 PM EDT Why: THIS APPOINTMENT WILL BE WITH DR. INTERIANO Where: [address] [place] [address]- [phone] Allergies HYDROcodone Bitartrate (Unknown) Haldol (Unknown) acetaminophen (Unknown) fentaNYL ibuprofen (affects kidneys) Medications Please ask your primary doctor or pharmacist before taking any other medication not listed, including over the counter drugs, herbal medications, vitamins and or supplements as they may interact withur home medications. What How Much When Instructions Last Dose Unchanged albuterol-ipratropium (albuterol-ipratropium 2.5 mg-0.5 mg/ 3 mL inhalation solution) 3 Milliliter by inhalation Every 6 hours Unchanged amLODIPine (amLODIPine 10 mg oral tablet) 1 tab(s) by mouth Once a day Unchanged ascorbic acid (ascorbic acid 500 mg oral capsule) 1 cap by mouth Once a day Unchanged aspirin (aspirin 81 mg oral delayed release tablet) 1 tab(s) by mouth Every day Unchanged carvedilol (carvedilol 25 mg oral tablet) 2 tab(s) by mouth Two (2) times a day Unchanged cholecalciferol (Vitamin D3 125 mcg (5000 intl units) oral capsule) 1 cap by mouth Once a day with food Unchanged cloNIDine (cloNIDine 0.3 mg oral tablet) 1 tab(s) by mouth Three (3) times a day Unchanged cyclobenzaprine (cyclobenzaprine 10 mg oral tablet) 1 tab(s) by mouth Four (4) times a day as needed for as needed for spasm Unchanged dapagliflozin (Farxiga 10 mg oral tablet) 1 tab(s) by mouth Once a day Unchanged docusate (docusate sodium 100 mg oral tablet) 1 tab(s) by mouth Once a day Unchanged doxycycline (doxycycline hyclate 100 mg oral tablet) 1 tab(s) by mouth Two (2) times a day Unchanged dulaglutide (Trulicity Pen 1.5 mg/ 0.5 mL subcutaneous solution) 0.5 Milliliter Subcutaneous Every Monday Unchanged DULoxetine (DULoxetine 30 mg oral delayed release capsule) 1 cap by mouth Two (2) times a day do not crush or chew Unchanged finasteride (finasteride 5 mg oral tablet) 1 tab(s) by mouth Once a day Unchanged fluticasone nasal (fluticasone proprionate NASAL 50 mcg/ spray) 1 spray(s) each nostril Two (2) times a day Unchanged furosemide (furosemide 40 mg oral tablet) 1 tab(s) by mouth Every Mon / / / Mon QD Unchanged furosemide (furosemide 40 mg oral tablet) 1 tab(s) by mouth Monday / Monday / Monday BID Unchanged gabapentin (gabapentin 800 mg oral tablet) 1 tab(s) by mouth Three (3) times a day Unchanged gemfibrozil (gemfibrozil 600 mg oral tablet) 1 tab(s) by mouth Two (2) times a day Unchanged glucagon (glucagon 1 mg injection) 1 Each Subcutaneous As Directed as needed for for low blood sugar Unchanged guaiFENesin (Rcahael-Tussin Expectorant 100 mg/ 5 mL oral liquid) 10 Milliliter by mouth Every 4 hours as needed for Cough Unchanged hydrALAZINE (hydrALAZINE 100 mg oral tablet) 1 tab(s) by mouth Three (3) times a day Unchanged insulin aspart (Novolog) (NovoLOG 100 units/ mL injectable solution) See instructions Unchanged insulin regular (HumuLIN R KwikPEN (CONCENTRATED) insulin 500 units/ mL 3 mL) 160 unit(s) Subcutaneous (INT) Once a day SEE LONGTERM MED LIST, ON LIST X3 NO INSTRUCTIONS ON TIME OF DOSE Unchanged isosorbide mononitrate (isosorbide mononitrate 60 mg oral tablet, extended release) 1 tab(s) by mouth Once a day Unchanged levETIRAcetam (Keppra 500 mg oral tablet) 1 tab(s) by mouth Two (2) times a day Unchanged loperamide (loperamide 2 mg oral capsule) 1 cap by mouth Every 4 hours as needed for for loose stool Unchanged losartan (losartan 100 mg oral tablet) 1 tab(s) by mouth Once a day Unchanged melatonin (melatonin 3 mg oral tablet) 1 tab(s) by mouth Daily at bedtime as needed for as needed for insomnia Unchanged menthol topical (Biofreeze 4% topical gel) 1 application Topical Three (3) times a day as needed for as needed for pain Unchanged mirtazapine (mirtazapine 7.5 mg oral tablet) 1 tab(s) by mouth Daily at bedtime Unchanged ondansetron (ondansetron 4 mg oral tablet) 1 tab(s) by mouth Every 8 hours as needed for Nausea/Vomiting Unchanged oxyCODONE (oxyCODONE 10 mg oral tablet ( IMMEDIATE release )) 1 tab(s) by mouth Three (3) times a day with meals as needed for as needed for pain Unchanged pantoprazole (pantoprazole 40 mg oral enteric coated tablet) 1 tab(s) by mouth Once a day (in the morning) Unchanged polyethylene glycol 3350 (MiraLax oral powder for reconstitution) 17 gram(s) by mouth Once a day as needed for Constipation Unchanged rosuvastatin (rosuvastatin 40 mg oral tablet) 1 tab(s) by mouth Once a day Unchanged sertraline (sertraline 100 mg oral tablet) 1 tab(s) by mouth Once a day Unchanged sucralfate (Carafate 1 g oral tablet) 1 tab(s) by mouth Four (4) times a day Unchanged tamsulosin (tamsulosin 0.4 mg oral capsule) 1 cap by mouth Two (2) times a day Unchanged traZODone (traZODone 300 mg oral tablet) 1 tab(s) by mouth Daily at bedtime Please take this list to your next doctor s visit. Bring all medications you take, including over the counter medications, herbals and other supplements with you to your doctor s visit. Patients and families are reminded to discard old lists and to update any records with all medication providers or retail pharmacies. Education Materials DISCHARGE INSTRUCTIONS FOR CANCELLED PROCEDURES DIET Resume your regular diet that you had before your procedure unless otherwise instructed. ACTIVITY Resume your previous activities as tolerated unless otherwise instructed. IV DRESSING/WOUND CARE If you have had an IV inserted, you can remove the gauze dressing in 1 hour. CALL YOUR DOCTOR IF: You develop any new redness, swelling, or drainage around your IV insertion site. You have a temperature of 101 degrees or higher. PAIN Follow your doctors' instructions for pain management. You can take your usual pdjl-ovn-zdmajej pain medication unless otherwise directed. HAND WASHING Always wash your hands before and after touching the IV insertion/dressing site. Frequent hand washing is the best way to prevent the spread of infection. FOLLOW-UP Keep your follow-up appointment. If an appointment has not been made for you, call your doctor's office to schedule. If you have any concerns before your appointment, call your doctor's office. Additional Information VACCINATE! IT SAVES LIVES! Members of the community who have not yet received the COVID-19 vaccine and would like to receive it can visit one of [facility] vaccine clinics. There are many vaccine clinic locations within the [facility]. For locations and available times, please visit [email or web address] It is important to note that some COVID mobile vaccine clinics are held outdoors and may be canceled in rainy or stormy conditions. To learn more about pediatric vaccinations (ages 5-11), we invite you to visit the [facility] webpage. [email or web address] learn more about the COVID-19 vaccine, we invite you to visit the CDC website for a list of frequently asked questions.https://www.cdc.gov/coronavirus/2019-ncov/vaccines/faq.html [facility] Patient Portal Access Instructions: Stay connected with your healthcare team and access your personal medical information anytime with the [facility] Patient Portal. Please follow the directions below to create your [facility] account: 1.Access the email account you provided upon registration to the hospital/physician office.2.Look for an invitation email from [facility].3.Open the email and access the invitation link: AcceptInvitation to [facility].4.Fill in the required bang to create your account. To access your account, visit [email or web address] la MobileMusiCareshart. Click the blue button labeled Access Patient Portal and then log in with the username and password that you created in the steps above. You will be able to view your test results, lab results, a summary of your visits, upcoming appointments and more. There is also a convenient messaging option where you can send secure messages to your p [employer]. In addition, you will have the ability to download any documents or summaries to your computer and/or send the information securely to a physician. Remember that your healthcare information is confidential, so carefully consider who you will allowto register on the [facility] Patient Portal for access to your information. You can also access the [facility] Patient Portal on the [facility] nurys. Simply click on Patient Portal and then log into your account. If you would like to receive a full copy of your medical records, please contact the [facility] Medical Records Department by calling [phone], Monday through Monday between 8 a.m. and 4:30 p.m. HOW TO SAFELY DISPOSE OF PRESCRIPTION MEDICATIONS Please use one of the following methods to safely dispose of your unused medications. 1.Use a drug disposal kit: the drug disposal pouch allows you to safely discard your old and unuseddrugs. Ask your nurse to give you one when you are discharged.2.Visit a local take-back location: Many local pharmacies and police departments have programs that collect old and unwanted prescriptiondrugs. Call your local pharmacy or go to http://bit.Red LaGoon/0V7Mi3m to find one close to you.3.Make use of household items: Use cat litter or old coffee grounds to dispose medications if other options arenot available. Mix your drugs with these household products, seal them in an airtight container andthrow it into the garbage. Call [facility]: [phone] to be sure your drugs can be disposed of in this way. Some medicines may require a different approach.4.Never flush your medications down the toilet. IF YOU HAVE BEEN PRESCRIBED AN OPIOID FOR PAIN If you have been prescribed an opioid (such as hydrocodone, oxycodone or morphine), it is critical to understand the possible side effects and risks of opioid pain medications. Even when taken as directed, opioids can have several side effects including: Tolerance, meaning you might need to take more of a medication for the same pain relief. Nausea, vomiting and/or constipation. Sleepiness, dizziness, dry mouth, confusion, depression or itching. Physical dependence, meaning you have withdrawal symptoms when a medication is stopped, can develop within a few days. KNOW YOUR RESPONSIBILITIES It is important to know exactly how much and how often to take the opioid pain medications you are prescribed. Never take opioids in higher amounts or more often than prescribed. Do not combine opioids with alcohol or other drugs that cause drowsiness, such as benzodiazepines, also known as benzos, including diazepam and alprazolam, muscle relaxants or sleep aids. Never sell or share prescription opioids. This is illegal. Store opioids in a secure place and out of reach of others (including children, family, friends and visitors). The last page of this document has been signed and retained as a CHART COPY. Signatures Patient Education Materials Cardiac SD - Discharge Instructions for Cancelled Procedures 10/2021(CUSTOM) Medication Leaflets My discharge plan and instructions have been reviewed and explained to me and IRUSSELL JEFFREY Runderstand my current condition and have read and understand these discharge instructions. I have received a written copy of the plan/instructions. If I have questions, I am aware that I should contact my doctor. 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 To schedule an appointment you need to talk to Tennille only. Also, requesting last office visit notes to be faxed to: [phone] Please advise accordingly. Best time of day caller can be reached: any Patient advised that office/PCP has 24-48 business hours to return their call: [id number] Miscellaneous Notes* Telephone Encounter - Sahra Song - 06/06/2023 8:30 AM EDT Name of caller: Tennille Contact phone number: [phone] Relationship to Patient: Residential Provider: Dr Calloway Practice: [facility] Chief Complaint/Reason for Call: Patient was to be seen in one year 01-19-24. 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 To schedule an appointment you need to talk to Tennille only. Also, requesting last office visit notes to be faxed to: [phone] Please advise accordingly. Best time of day caller can be reached: any Patient advised that office/PCP has 24-48 business hours to return their call: No documented in this [facility]11-01-2023 Note01/18/2023 REFERRING PHYSICIAN: Alvarez Guardado MD REASON FOR REFERRAL: Chief Complaint Patient presents with Follow-up Chief complaint: COPD, smoking History of Present Illness: [facility] He feels like he is doing okay. Still smoking up to 7 cigarettes a day. He uses the breathing treatments once every couple of days for wheeze. He uses the oxygen when he needs it, when his saturations go below 90%. Right now, feeling fine, no shortness of breath, no wheeze, no cough or congestion. ROS: Review of Systems Constitutional: Negative. HENT: Negative. Eyes: Negative. Respiratory: HPI Cardiovascular: Negative. Gastrointestinal: Negative. Endocrine: Negative. Musculoskeletal: Negative. Skin: Negative. Allergic/Immunologic: Negative. Neurological: Negative. Hematological: Negative. Psychiatric/Behavioral: Negative. Past Medical History: Past Medical History: Diagnosis Date Angina at rest Bradycardia CAD (coronary artery disease) Chronic chest pain Chronic diastolic heart failure (HCC) EF 60-65% echo 04/19/2016 Chronic kidney disease Congenital heart disease COPD (chronic obstructive pulmonary disease) (HCC) Deep vein thrombosis (HCC) In his left leg years ago Diabetes mellitus (HCC) GERD (gastroesophageal reflux disease) Hyperlipidemia Hypertension Lymphoma (HCC) Treated with chemo and radiation, patient thinks it is in remission Migraines Myocardial infarction (HCC) Normocytic anemia Occlusion of cerebral arteries Osteoarthritis Osteomyelitis (HCC) Pneumonia Sinusitis Chronic TIA (transient ischemic attack) Type 2 diabetes mellitus without complication (CMS/HCC) (HCC) Past Surgical History Past Surgical History: Procedure Laterality Date CARDIAC CATHETERIZATION 04/09/2015 patent stent to the circ; mild CAD GALLBLADDER SURGERY HERNIA REPAIR hiatal and inguinal KNEE ARTHROPLASTY 8 surgies on both knees LUMBAR FUSION SPINE SURGERY T11-L-5 Social History: Social History Socioeconomic History Marital status: Tobacco Use Smoking status: Former Packs/day: 1.5 Types: Cigarettes Quit date: 2012 Years since quittin.8 Smokeless tobacco: Never Tobacco comments: Quit smokin years Substance and Sexual Activity Alcohol use: No Drug use: No Social History Narrative Merged History Encounter Medications: Current Outpatient Medications Medication Sig Dispense Refill amLODIPine-atorvastatin (Caduet) 10-10 MG tablet Take 1 tablet by mouth daily. ascorbic acid (Vitamin C) 500 MG tablet Take 500 mg by mouth daily. aspirin 81 MG EC tablet Take 81 mg by mouth daily. carvedilol (Coreg) 25 MG tablet Take by mouth 2 times daily (with meals). Cholecalciferol (Vitamin D3) 125 MCG (5000 UT) chewable tablet Chew. cloNIDine (Catapres) 0.3 MG tablet Take by mouth 2 times daily. concentrated insulin regular (Humulin R) 500 UNIT/ML patient supplied pump Inject under the skin continuous. cyclobenzaprine (Flexeril) 10 MG tablet Take 5 mg by mouth 3 times daily as needed for muscle spasms. dapagliflozin (Farxiga) 10 MG Take by mouth. dextromethorphan-guaiFENesin (Robitussin-DM) 10-100 MG/5ML liquid Take 10 mL by mouth. docusate sodium (Colace) 100 MG capsule Take 100 mg by mouth 2 times daily. doxycycline (Vibra-Tabs) 100 MG tablet Take 100 mg by mouth 2 times daily. Take with a full glass of water and do not lie down for at least 30 minutes after. finasteride (Proscar) 5 MG tablet Take 5 mg by mouth daily. Do not crush, chew, or split. fluticasone (Flonase) 50 MCG/ACT nasal spray Administer 1 spray into each nostril daily. Shake gently. Before first use, prime pump. After use, clean tip and replace cap. furosemide (Lasix) 40 MG tablet Take by mouth. gabapentin (Neurontin) 800 MG tablet Take by mouth. gemfibrozil (Lopid) 600 MG tablet Take 600 mg by mouth in the morning and 600 mg in the evening. Take before meals. hydrALAZINE (Apresoline) 100 MG tablet Take 25 mg by mouth in the morning and 25 mg at noon and 25 mg before bedtime. Insulin Aspart (NovoLOG) 100 UNIT/ML solution Inject as directed. insulin aspart protamine-insulin aspart (NovoLOG Mix 70-30) (70-30) 100 UNIT/ML pen Inject 120 Units under the skin. ipratropium-albuterol (Duo-Neb) 0.5-2.5 mg/3 mL nebulizer solution Take 3 mL by nebulization every 6 hours. isosorbide mononitrate ER (Imdur) 60 MG 24 hr tablet Take by mouth daily. Do not crush or chew. levETIRAcetam (Keppra) 500 MG tablet Take by mouth. loperamide (Imodium) 2 MG capsule Take 2 mg by mouth as needed for diarrhea. losartan-hydroCHLOROthiazide (Hyzaar) 100-12.5 MG tablet Take 1 tablet by mouth daily. melatonin 3 MG tablet Take by mouth. mirtazapine (Remeron) 7.5 MG tablet Take 7.5 mg by mouth Nightly. ondansetron (Zofran) 4 MG tablet Take by mouth. oxyCODONE ER (OxyCONTIN) 40 MG 12 hr tablet Do not crush, chew, or (more content not included)...[facility]11-01-2023 History of Present illness Narrative* Samuel Calloway MD - 01/18/2023 9:45 AM EDT Images from the original note were not included. 01/18/2023 REFERRING PHYSICIAN: Alvarez Guardado MD REASON FOR REFERRAL: Chief Complaint Patient presents with Follow-up Chief complaint: COPD, smoking History of Present Illness: [facility] He feels like he is doing okay. Still smoking up to 7 cigarettes a day. He uses the breathing treatments once every couple of days for wheeze. He uses the oxygen when he needs it, when his saturations go below 90%. Right now, feeling fine, no shortness of breath, no wheeze, no cough or congestion. ROS: Review of Systems Constitutional: Negative. HENT: Negative. Eyes: Negative. Respiratory: HPI Cardiovascular: Negative. Gastrointestinal: Negative. Endocrine: Negative. Musculoskeletal: Negative. Skin: Negative. Allergic/Immunologic: Negative. Neurological: Negative. Hematological: Negative. Psychiatric/Behavioral: Negative. Past Medical History: Past Medical History: Diagnosis Date Angina at rest Bradycardia CAD (coronary artery disease) Chronic chest pain Chronic diastolic heart failure (HCC) EF 60-65% echo 04/19/2016 Chronic kidney disease Congenital heart disease COPD (chronic obstructive pulmonary disease) (HCC) Deep vein thrombosis (HCC) In his left leg years ago Diabetes mellitus (HCC) GERD (gastroesophageal reflux disease) Hyperlipidemia Hypertension Lymphoma (HCC) Treated with chemo and radiation, patient thinks it is in remission Migraines Myocardial infarction (HCC) Normocytic anemia Occlusion of cerebral arteries Osteoarthritis Osteomyelitis (HCC) Pneumonia Sinusitis Chronic TIA (transient ischemic attack) Type 2 diabetes mellitus without complication (CMS/HCC) (HCC) Past Surgical History Past Surgical History: Procedure Laterality Date CARDIAC CATHETERIZATION 04/09/2015 patent stent to the circ; mild CAD GALLBLADDER SURGERY HERNIA REPAIR hiatal and inguinal KNEE ARTHROPLASTY 8 surgies on both knees LUMBAR FUSION SPINE SURGERY T11-L-5 Social History: Social History Socioeconomic History Marital status: Tobacco Use Smoking status: Former Packs/day: 1.5 Types: Cigarettes Quit date: 2012 Years since quittin.8 Smokeless tobacco: Never Tobacco comments: Quit smokin years Substance and Sexual Activity Alcohol use: No Drug use: No Social History Narrative Merged History Encounter Medications: Current Outpatient Medications Medication Sig Dispense Refill amLODIPine-atorvastatin (Caduet) 10-10 MG tablet Take 1 tablet by mouth daily. ascorbic acid (Vitamin C) 500 MG tablet Take 500 mg by mouth daily. aspirin 81 MG EC tablet Take 81 mg by mouth daily. carvedilol (Coreg) 25 MG tablet Take by mouth 2 times daily (with meals). Cholecalciferol (Vitamin D3) 125 MCG (5000 UT) chewable tablet Chew. cloNIDine (Catapres) 0.3 MG tablet Take by mouth 2 times daily. concentrated insulin regular (Humulin R) 500 UNIT/ML patient supplied pump Inject under the skin continuous. cyclobenzaprine (Flexeril) 10 MG tablet Take 5 mg by mouth 3 times daily as needed for muscle spasms. dapagliflozin (Farxiga) 10 MG Take by mouth. dextromethorphan-guaiFENesin (Robitussin-DM) 10-100 MG/5ML liquid Take 10 mL by mouth. docusate sodium (Colace) 100 MG capsule Take 100 mg by mouth 2 times daily. doxycycline (Vibra-Tabs) 100 MG tablet Take 100 mg by mouth 2 times daily. Take with a full glass of water and do not lie down for at least 30 minutes after. finasteride (Proscar) 5 MG tablet Take 5 mg by mouth daily. Do not crush, chew, or split. fluticasone (Flonase) 50 MCG/ACT nasal spray Administer 1 spray into each nostril daily. Shake gently. Before first use, prime pump. After use, clean tip and replace cap. furosemide (Lasix) 40 MG tablet Take by mouth. gabapentin (Neurontin) 800 MG tablet Take by mouth. gemfibrozil (Lopid) 600 MG tablet Take 600 mg by mouth in the morning and 600 mg in the evening. Take before meals. hydrALAZINE (Apresoline) 100 MG tablet Take 25 mg by mouth in the morning and 25 mg at noon and 25 mg before bedtime. Insulin Aspart (NovoLOG) 100 UNIT/ML solution Inject as directed. insulin aspart protamine-insulin aspart (NovoLOG Mix 70-30) (70-30) 100 UNIT/ML pen Inject 120 Units under the skin. ipratropium-albuterol (Duo-Neb) 0.5-2.5 mg/3 mL nebulizer solution Take 3 mL by nebulization every 6 hours. isosorbide mononitrate ER (Imdur) 60 MG 24 hr tablet Take by mouth daily. Do not crush or chew. levETIRAcetam (Keppra) 500 MG tablet Take by mouth. loperamide (Imodium) 2 MG capsule Take 2 mg by mouth as needed for diarrhea. losartan-hydroCHLOROthiazide (Hyzaar) 100-12.5 MG tablet Take 1 tablet by mouth daily. melatonin 3 MG tablet Take by mouth. mirtazapine (Remeron) 7.5 MG tablet Take 7.5 mg by mouth Nightly. ondansetron (Zofran) 4 MG tablet Take by mouth. oxyCODONE ER (OxyCONTIN) 40 MG 12 hr tablet Do not crush, chew, or split. pantoprazole (ProtoNix) 40 MG EC tablet Take 40 mg by mouth every morning (before breakfast). Do not crush, chew, or split. polyethylene glycol, PEG, 3350 (MiraLax) 17 g packet Take by mouth. rosuvastatin (Crestor) 40 MG tablet Take 40 mg by mouth daily. sertraline (Zoloft) 100 MG tablet Take by mouth. tamsulosin (Flomax) 0.4 MG 24 hr capsule Take 0.4 mg by mouth daily. traZODone (Desyrel) 300 MG tablet Take 300 mg by mouth Nightly. Trulicity 3 MG/0.5ML solution pen-injector aluminum & magnesium hydroxide-simethicone (Mylanta) 200-200-20 MG/5ML oral suspension Take by mouth every 6 hours as needed for indigestion or heartburn. dextromethorphan (Delsym) 30 MG/5ML liquid Take 60 mg by mouth 2 times daily. spironolactone (Aldactone) 25 MG tablet Take by mouth daily. Tirzepatide (Mounjaro) 10 MG/0.5ML solution pen-injector Inject under the skin. torsemide (Demadex) 20 MG tablet Take 20 mg by mouth daily. No current facility-administered medications for this visit. Allergies: Allergies Allergen Reactions Acetaminophen Other reaction(s): Other Hydrocodone Other reaction(s): Other Haldol [Haloperidol] Ibuprofen Family History: Family History Problem Relation Name Age of Onset Diabetes Paternal Grandmother Stroke Maternal Grandmother Alzheimer's disease Mother Stroke Mother Coronary artery disease Paternal Grandfather Stroke Maternal Grandfather Diabetes Mother Cancer Father Coronary artery disease Father Cancer Sister thyroid Physical Exam: BP (!) 175/84 (01/18/23927) Temp Pulse 72 (01/18/23927) Resp 14 (01/18/23927) SpO2 93 % (RA) (01/18/23927) Physical Exam Vitals and nursing note reviewed. Exam conducted with a fondant machine operator present. Constitutional: General: He is not in acute distress. Appearance: Normal appearance. He is obese. He is not ill-appearing, toxic- appearing or diaphoretic. Comments: Walks with a wheeled walker HENT: Head: Normocephalic and atraumatic. Nose: Nose normal. Mouth/Throat: Mouth: Mucous membranes are moist. Pharynx: Oropharynx is clear. No oropharyngeal exudate or posterior oropharyngeal erythema. Eyes: Extraocular Movements: Extraocular movements intact. Conjunctiva/sclera: Conjunctivae normal. Pupils: Pupils are equal, round, and reactive to light. Cardiovascular: Rate and Rhythm: Normal rate and regular rhythm. Heart sounds: Normal heart sounds. Pulmonary: Effort: Pulmonary effort is normal. No tachypnea, accessory muscle usage, prolonged expiration or respiratory distress. Breath sounds: Decreased air movement present. No stridor. No wheezing, rhonchi or rales. Musculoskeletal: General: Swelling present. No deformity. Cervical back: Neck supple. No rigidity. Lymphadenopathy: Cervical: No cervical adenopathy. Skin: General: Skin is warm and dry. Neurological: General: No focal deficit present. Mental Status: He is alert and oriented to person, place, and time. Gait: Gait abnormal. Psychiatric: Mood and Affect: Mood normal. Behavior: Behavior normal. Thought Content: Thought content normal. Judgment: Judgment normal. Radiology: None new PFT: None Assessment and Plan: Chito was seen today for follow-up. Diagnoses and all orders for this visit: Chronic obstructive pulmonary disease, unspecified COPD type (HCC) (Primary) Chronic respiratory failure with hypoxia (HCC) Smoker Mediastinal lymphadenopathy Morbid obesity (HCC) O2 as needed Nebulizer as needed Needs to stop smoking Flu shot yearly Needs to optimize weight No need for further follow-up of mediastinal lymphadenopathy, its been noted to be stable in the past Follow-up: Follow up in about 1 year (around 01/19/2024). documented in this [facility]11-01-2023 Instructions* Patient Instructions* Lela Jeffries MA - 01/18/2023 9:45 AM EDT YOUR APPOINTMENT TODAY WAS WITH THE [facility]G [facility], COPD CLINIC, PULMONARY AND SLEEP MEDICINE OFFICE. PLEASE CALL OUR OFFICE AT [phone] IF YOU HAVE NOT RECEIVED YOUR TEST RESULTS 7 DAYS AFTER TESTING IS COMPLETED. PLEASE REMEMBER TO REQUEST REFILLS AT YOUR OFFICE VISITS. PHONE/FAX REQUESTS REQUIRE 48-72 HOURS FOR RESPONSE. A FRIENDLY REMINDER COPAYS ARE DUE AT TIME OF SERVICE. THANK YOU. Our Patients Are Important! We want to improve and you can help. After your visit we want you to feel: Listened to, Respected and have your health care explained. You may receive a survey asking you about your visit. Please complete the survey. We will use your feedback to make improvements. COVID-19 VACCINATION INFORMATION: PH. [phone] [email or web address] [facility] Central Scheduling [phone] [facility] Sleep Scheduling [phone] documented in this [facility]08-10-2023 Hospital Discharge instructions Patient Education 10/27/2022 14:10:45 1-SDS Discharge Instructions Template (12/2017) (CUSTOM) [facility] SAME DAY SURGERY DISCHARGE INSTRUCTIONS PLEASE FOLLOW THE INSTRUCTIONS BELOW MARKED WITH AN X: __x_ Regular Diet: Start with clear liquids, then soup and crackers and gradually add other foods. ___ Drink extra fluids. ___ Special Diet Instructions: ___ ACTIVITY: _x__ Avoid stress to suture line. Since you have had an anesthetic, it would be advisable not to drive, drink alcohol, or make major decisions over the next 24 hours. You may require more rest tonight and tomorrow. ___ May resume regular activity as tolerated. ___ Restrict activity as follows: ___ ___ Walk Only ___ ___ Do not go up and down stairs. ___ Do not ride in car until ___ ___ Do not drive car. ___ Do not have sexual intercourse. ___ No heavy lifting, pushing or straining. ___ Other: ___ BATHING/SHOWERING: ___ Sponge bathe until office visit. ___ Sitting in tub of warm water may relieve discomfort. ___ May tub bathe _x__ May shower ___ On day after surgery sit in tub of warm water to soak off dressing. DRESSING: ___ Keep operative area dry and clean for ___ ___ Check the operative area for signs of bleeding. Apply pressure to the bleeding site if necessary and call your physician. ___ Change dressing as necessary using sterile dressing material or bandaid. ___ Reinforce dressing as necessary. ___ Change and care for wound as follows: ___ ___ Wear bra for ___ days following breast surgery for comfort. ___ Change drip pad as needed. ___ Wear scrotal support for comfort. WATCH FOR SIGNS OF INFECTION: (Usually appears 36-48 hours after surgery) Increased temperature (101 degrees Fahrenheit or higher) Redness or swelling Increased pain Foul odor or drainage. If you have any questions, please call your doctor at the number listed on your follow up instructions. Follow all instructions given to you by your physician. Please complete and return the survey you will be receiving in the mail to help us better serve our patients. Form: [id number]) R: 06/26 Follow Up Care 10/17/2022 10:59:22 With:CHAD JOSEPH MD, Neurosurgery Address: [address] [place] [address] [address] [place] [address]- [phone] When: Unknown Comments:Follow-up as scheduled. Schedule appointment as soon as possible [facility] 08-10-2023 Anesthesiology Consult note Patient: CHITO WELLS Age: 56 years Sex: Male : 1965 Associated Diagnoses: None Author: FELICIA RODRIGUEZ DO Postoperative Information Post Operative Info: Post op day: Post Anesthesia Care Unit. Patient location: PACU. Assessment Postanesthesia assessment Vitals. Mental status: at preoperative baseline. Respiratory function: respirations are non-labored. Respiratory support: oxygen room air. CV function: stable. Cardiovascular support: none. Pain: satisfactory. Nausea status: satisfactory. Postoperative hydration status: within normal limits. Notes: Patient sufficiently recovered from anesthesia to participate in the evaluation. No follow-up needed. No post-anesthesia complications.. Digitally Signed by FELICIA RODRIGUEZ DO on 10/27/2022 02:42 PM [id number] Summary of episode note Discharge Instructions Thank you for allowing [facility] to assist you with your healthcare needs. The following is importantdischarge information regarding your hospital visit. Your Care Team STACEY CUOLTER MD What to do next Follow Up Appointments Follow Up with CHAD JOSEPH MD, Neurosurgery When Why: Follow-up as scheduled. Schedule appointment as soon as possible Where: [address] [place] [phone] The Following Activity and Diet Have Been Ordered for You No qualifying data available. No qualifying data available. The Following Equipment Has Been Ordered for You No qualifying data available. Someone Will Contact You Regarding These Home Health Referrals No home referrals have been ordered for you. No one will call you. Allergies HYDROcodone Bitartrate (Unknown) Haldol (Unknown) acetaminophen (Unknown) Medications Please ask your primary doctor or pharmacist before taking any other medication not listed, including over the counter drugs, herbal medications, vitamins and or supplements as they may interact withyour home medications. What How Much When Instructions Last Dose Unchanged albuterol-ipratropium (albuterol-ipratropium 2.5 mg-0.5 mg/ 3 mL inhalation solution) 3 Milliliter by inhalation Every 6 hours Unchanged amLODIPine (amLODIPine 10 mg oral tablet) 1 tab(s) by mouth Once a day Unchanged ascorbic acid (ascorbic acid 500 mg oral capsule) 1 cap by mouth Once a day Unchanged aspirin (aspirin 81 mg oral delayed release tablet) 1 tab(s) by mouth Every day Unchanged calcium carbonate/ Mg hydroxide/ simethicone (Mylanta Coat and Cool 1200 mg-270 mg-80 mg/10 mL oral suspension) 10 Milliliter by mouth Two (2) times a day as needed for as needed for indigestion Unchanged carvedilol (carvedilol 25 mg oral tablet) 1 tab(s) by mouth Two (2) times a day Unchanged cholecalciferol (Vitamin D3 125 mcg (5000 intl units) oral capsule) 1 cap by mouth Once a day with food Unchanged cloNIDine (cloNIDine 0.3 mg oral tablet) 1 tab(s) by mouth Three (3) times a day Unchanged cyclobenzaprine (cyclobenzaprine 10 mg oral tablet) 1 tab(s) by mouth Four (4) times a day as needed for as needed for spasm Unchanged dapagliflozin (Farxiga 10 mg oral tablet) 1 tab(s) by mouth Once a day Unchanged docusate (docusate sodium 100 mg oral tablet) 1 tab(s) by mouth Once a day Unchanged doxycycline (doxycycline hyclate 100 mg oral tablet) 1 tab(s) by mouth Two (2) times a day Unchanged dulaglutide (Trulicity Pen 1.5 mg/ 0.5 mL subcutaneous solution) 0.5 Milliliter Subcutaneous Every Monday Unchanged finasteride (finasteride 5 mg oral tablet) 1 tab(s) by mouth Once a day Unchanged fluticasone nasal (fluticasone proprionate NASAL 50 mcg/ spray) 1 spray(s) each nostril Two (2) times a day Unchanged furosemide (furosemide 40 mg oral tablet) 1 tab(s) by mouth Every Mon / / / Mon QD Unchanged furosemide (furosemide 40 mg oral tablet) 1 tab(s) by mouth Monday / Monday / Monday BID Unchanged gabapentin (gabapentin 800 mg oral tablet) 1 tab(s) by mouth Three (3) times a day Unchanged gemfibrozil (gemfibrozil 600 mg oral tablet) 1 tab(s) by mouth Two (2) times a day Unchanged glucagon (glucagon 1 mg injection) 1 Each Subcutaneous As Directed as needed for for low blood sugar Unchanged guaiFENesin (Rachael-Tussin Expectorant 100 mg/ 5 mL oral liquid) 10 Milliliter by mouth Every 4 hours as needed for Cough Unchanged hydrALAZINE (hydrALAZINE 100 mg oral tablet) 1 tab(s) by mouth Three (3) times a day Unchanged insulin regular (HumuLIN R KwikPEN (CONCENTRATED) insulin 500 units/ mL 3 mL) 160 unit(s) Subcutaneous (INT) Once a day SEE LONGTERM MED LIST, ON LIST X3 NO INSTRUCTIONS ON TIME OF DOSE Unchanged isosorbide mononitrate (isosorbide mononitrate 60 mg oral tablet, extended release) 1 tab(s) by mouth Once a day Unchanged levETIRAcetam (Keppra 500 mg oral tablet) 1 tab(s) by mouth Two (2) times a day Unchanged loperamide (loperamide 2 mg oral capsule) 1 cap by mouth Every 4 hours as needed for for loose stool Unchanged losartan (losartan 100 mg oral tablet) 1 tab(s) by mouth Once a day Unchanged melatonin (melatonin 3 mg oral tablet) 1 tab(s) by mouth Daily at bedtime as needed for as needed for insomnia Unchanged menthol topical (Biofreeze 4% topical gel) 1 application Topical Three (3) times a day as needed for as needed for pain Unchanged mirtazapine (mirtazapine 7.5 mg oral tablet) 2 tab(s) by mouth Daily at bedtime Unchanged Misc Medication (MENTHOL-METHYL 10-15%) 1 APPLICATION Topical Three (3) times a day as needed for Muscle Aches Unchanged mupirocin topical (mupirocin 2% topical ointment) 1 application Topical Three (3) times a day APPLY TO BACK Unchanged ondansetron (ondansetron 4 mg oral tablet) 1 tab(s) by mouth Every 8 hours as needed for Nausea/Vomiting Unchanged oxyCODONE (oxyCODONE 10 mg oral tablet ( IMMEDIATE release )) 1 tab(s) by mouth Three (3) times a day with meals as needed for as needed for pain Unchanged pantoprazole (pantoprazole 40 mg oral enteric coated tablet) 1 tab(s) by mouth Once a day (in the morning) Unchanged polyethylene glycol 3350 (MiraLax oral powder for reconstitution) 17 gram(s) by mouth Once a day as needed for Constipation Unchanged rosuvastatin (rosuvastatin 40 mg oral tablet) 1 tab(s) by mouth Once a day Unchanged sertraline (sertraline 100 mg oral tablet) 1 tab(s) by mouth Once a day WITH A 50MG TO EQUAL 150G Unchanged sertraline (sertraline 50 mg oral tablet) 1 tab(s) by mouth Once a day WITH A 100MG TO EQUAL 150MG Unchanged tamsulosin (tamsulosin 0.4 mg oral capsule) 1 cap by mouth Two (2) times a day Please take this list to your next doctor s visit. Bring all medications you take, including over the counter medications, herbals and other supplements with you to your doctor s visit. Patients and families are reminded to discard old lists and to update any records with all medication providers or retail pharmacies. Education Materials [facility] SAME DAY SURGERY DISCHARGE INSTRUCTIONS PLEASE FOLLOW THE INSTRUCTIONS BELOW MARKED WITH AN X: __x_ Regular Diet: Start with clear liquids, then soup and crackers and gradually add other foods. ___ Drink extra fluids. ___ Special Diet Instructions: ___ ACTIVITY: _x__ Avoid stress to suture line. Since you have had an anesthetic, it would be advisable not to drive, drink alcohol, or make major decisions over the next 24 hours. You may require more rest tonight and tomorrow. ___ May resume regular activity as tolerated. ___ Restrict activity as follows: ___ ___ Walk Only ___ ___ Do not go up and down stairs. ___ Do not ride in car until ___ ___ Do not drive car. ___ Do not have sexual intercourse. ___ No heavy lifting, pushing or straining. ___ Other: ___ BATHING/SHOWERING: ___ Sponge bathe until office visit. ___ Sitting in tub of warm water may relieve discomfort. ___ May tub bathe _x__ May shower ___ On day after surgery sit in tub of warm water to soak off dressing. DRESSING: ___ Keep operative area dry and clean for ___ ___ Check the operative area for signs of bleeding. Apply pressure to the bleeding site if necessary and call your physician. ___ Change dressing as necessary using sterile dressing material or bandaid. ___ Reinforce dressing as necessary. ___ Change and care for wound as follows: ___ ___ Wear bra for ___ days following breast surgery for comfort. ___ Change drip pad as needed. ___ Wear scrotal support for comfort. WATCH FOR SIGNS OF INFECTION: (Usually appears 36-48 hours after surgery) Increased temperature (101 degrees Fahrenheit or higher) Redness or swelling Increased pain Foul odor or drainage. If you have any questions, please call your doctor at the number listed on your follow up instructions. Follow all instructions given to you by your physician. Please complete and return the survey you will be receiving in the mail to help us better serve our patients. Form: 1522 (22032) R: 06/26 Additional Information VACCINATE! IT SAVES LIVES! Members of the community who have not yet received the COVID-19 vaccine and would like to receive it can visit one of [facility] vaccine clinics. There are many vaccine clinic locations within the [facility]. For locations and available times, please visit [email or web address] It is important to note that some COVID mobile vaccine clinics are held outdoors and may be canceled in rainy or stormy conditions. To learn more about pediatric vaccinations (ages 5-11), we invite you to visit the [facility] webpage. [email or web address] learn more about the COVID-19 vaccine, we invite you to visit the CDC website for a list of frequently asked questions.https://www.cdc.gov/coronavirus/2019-ncov/vaccines/faq.html [facility] Patient Portal Access Instructions: Stay connected with your healthcare team and access your personal medical information anytime with the [facility] Patient Portal. Please follow the directions below to create your [facility] account: 1.Access the email account you provided upon registration to the hospital/physician office.2.Look for an invitation email from [facility].3.Open the email and access the invitation link: AcceptInvitation to [facility].4.Fill in the required bang to create your account. To access your account, visit [email or web address]. Click the blue button labeled Access Patient Portal and then log in with the username and password that you created in the steps above. You will be able to view your test results, lab results, a summary of your visits, upcoming appointments and more. There is also a convenient messaging option where you can send secure messages to your p rovider. In addition, you will have the ability to download any documents or summaries to your computer and/or send the information securely to a physician. Remember that your healthcare information is confidential, so carefully consider who you will allowto register on the [facility] Patient Portal for access to your information. You can also access the [facility] Patient Portal on the [facility] nurys. Simply click on Patient Portal and then log into your account. If you would like to receive a full copy of your medical records, please contact the [facility] Medical Records Department by calling [phone], Monday through Monday between 8 a.m. and 4:30 p.m. HOW TO SAFELY DISPOSE OF PRESCRIPTION MEDICATIONS Please use one of the following methods to safely dispose of your unused medications. 1.Use a drug disposal kit: the drug disposal pouch allows you to safely discard your old and unuseddrugs. Ask your nurse to give you one when you are discharged.2.Visit a local take-back location: Many local pharmacies and police departments have programs that collect old and unwanted prescriptiondrugs. Call your local pharmacy or go to http://bit.ly/7K4Lm6c to find one close to you.3.Make use of household items: Use cat litter or old coffee grounds to dispose medications if other options arenot available. Mix your drugs with these household products, seal them in an airtight container andthrow it into the garbage. Call [facility]: [phone] to be sure your drugs can be disposed of in this way. Some medicines may require a different approach.4.Never flush your medications down the toilet. IF YOU HAVE BEEN PRESCRIBED AN OPIOID FOR PAIN If you have been prescribed an opioid (such as hydrocodone, oxycodone or morphine), it is critical to understand the possible side effects and risks of opioid pain medications. Even when taken as directed, opioids can have several side effects including: Tolerance, meaning you might need to take more of a medication for the same pain relief. Nausea, vomiting and/or constipation. Sleepiness, dizziness, dry mouth, confusion, depression or itching. Physical dependence, meaning you have withdrawal symptoms when a medication is stopped, can develop within a few days. KNOW YOUR RESPONSIBILITIES It is important to know exactly how much and how often to take the opioid pain medications you are prescribed. Never take opioids in higher amounts or more often than prescribed. Do not combine opioids with alcohol or other drugs that cause drowsiness, such as benzodiazepines, also known as benzos, including diazepam and alprazolam, muscle relaxants or sleep aids. Never sell or share prescription opioids. This is illegal. Store opioids in a secure place and out of reach of others (including children, family, friends and visitors). The last page of this document has been signed and retained as a CHART COPY. Signatures Patient Education Materials 1-SDS Discharge Instructions Template (12/2017) (CUSTOM) Medication Leaflets My discharge plan and instructions have been reviewed and explained to me and IRUSSELL JEFFREY Runderstand my current condition and have read and understand these discharge instructions. I have received a written copy of the plan/instructions. If I have questions, I am aware that I should contact my doctor. 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 History of Present Illness 56yoM with PMH COPD, GERD, gastroparesis, TIA, HTN presenting for MRI. Denies CP, SOB, fever, recent cough, cold or congestion; Pt does have episodes of vomiting daily from gastroparesis. Health Status Allergies: Allergic Reactions (Selected) Severity Not Documented Acetaminophen- Unknown. Haldol- Unknown. HYDROcodone Bitartrate- Unknown., Allergies (3) ActiveReaction acetaminophenUnknown HaldolUnknown HYDROcodone BitartrateUnknown Current medications: (Selected) Inpatient Medications Ordered LR 1,000 mL: 20 mL/hr, Intravenous, Stop: 10/27/22 22:59:00 EDT lidocaine 1% preservative-free injectable solution: 2.5 mg, 0.25 mL, Intradermal, prep pharm Documented Medications Documented Biofreeze 4% topical gel: 1 nurys, Topical, TID, PRN: as needed for pain, 118 mL, 0 Refill(s) Farxiga 10 mg oral tablet: 10 mg, 1 tab(s), Oral, qDay, 30 tab(s), 0 Refill(s) Rachael-Tussin Expectorant 100 mg/5 mL oral liquid: 200 mg, 10 mL, Oral, q4h, PRN: Cough, 0 Refill(s) HumuLIN R KwikPEN (CONCENTRATED) insulin 500 units/mL 3 mL: 160 unit(s), Subcutaneous-INT, qDay, SEE LONGTERM MED LIST, ON LIST X3 NO INSTRUCTIONS ON TIME OF DOSE, 3 mL Keppra 500 mg oral tablet: 500 mg, 1 tab(s), Oral, BID, 60 tab(s), 0 Refill(s) MENTHOL-METHYL 10-15%: 1 APPLICATION, Topical, TID, PRN: Muscle Aches, 0 Refill(s) MiraLax oral powder for reconstitution: 17 gram(s), Oral, qDay, PRN: Constipation, 238 gram(s), 0 Refill(s) Mylanta Coat and Cool 1200 mg-270 mg-80 mg/10 mL oral suspension: 10 mL, Oral, BID, PRN: as needed for indigestion, 355 mL, 0 Refill(s) Trulicity Pen 1.5 mg/0.5 mL subcutaneous solution: 1.5 mg, 0.5 mL, Subcutaneous, Monday, 0 Refill(s) Vitamin D3 125 mcg (5000 intl units) oral capsule: 125 mcg, 1 cap(s), Oral, qDay, with food, 250 cap(s), 0 Refill(s) albuterol-ipratropium 2.5 mg-0.5 mg/3 mL inhalation solution: 3 mL, Inhalation, q6hr, 60 EA, 0 Refill(s) amLODIPine 10 mg oral tablet: 10 mg, 1 tab(s), Oral, qDay, 30 tab(s), 0 Refill(s) ascorbic acid 500 mg oral capsule: 500 mg, 1 cap(s), Oral, qDay, 30 cap(s), 0 Refill(s) aspirin 81 mg oral delayed release tablet: 81 mg, 1 tab(s), Oral, Daily, 0 Refill(s) carvedilol 25 mg oral tablet: 25 mg, 1 tab(s), Oral, BID, 60 tab(s), 0 Refill(s) cloNIDine 0.3 mg oral tablet: 0.3 mg, 1 tab(s), Oral, TID, 60 tab(s), 0 Refill(s) cyclobenzaprine 10 mg oral tablet: 10 mg, 1 tab(s), Oral, QID, PRN: as needed for spasm, 30 tab(s),0 Refill(s) docusate sodium 100 mg oral tablet: 100 mg, 1 tab(s), Oral, qDay, 100 tab(s), 0 Refill(s) doxycycline hyclate 100 mg oral tablet: 100 mg, 1 tab(s), Oral, BID, 20 tab(s), 0 Refill(s) finasteride 5 mg oral tablet: 5 mg, 1 tab(s), Oral, qDay, 30 tab(s), 0 Refill(s) fluticasone proprionate NASAL 50 mcg/ spray: 1 spray(s), Nostril, each, BID, 0 Refill(s) furosemide 40 mg oral tablet: 40 mg, 1 tab(s), Oral, Mon/Mon/Mon, BID, 30 tab(s), 0 Refill(s) furosemide 40 mg oral tablet: 40 mg, 1 tab(s), Oral, Sun/Tues/Thurs/Sat, QD, 30 tab(s), 0 Refill(s) gabapentin 800 mg oral tablet: 800 mg, 1 tab(s), Oral, TID, 270 tab(s), 0 Refill(s) gemfibrozil 600 mg oral tablet: 600 mg, 1 tab(s), Oral, BID, 60 tab(s), 0 Refill(s) glucagon 1 mg injection: 1 mg, 1 EA, Subcutaneous, AsDirected, PRN: for low blood sugar, 1 EA, 1 Refill(s) hydrALAZINE 100 mg oral tablet: 100 mg, 1 tab(s), Oral, TID, 180 tab(s), 0 Refill(s) isosorbide mononitrate 60 mg oral tablet, extended release: 60 mg, 1 tab(s), Oral, qDay, 30 tab(s),0 Refill(s) loperamide 2 mg oral capsule: 2 mg, 1 cap(s), Oral, q4h, PRN: for loose stool, 0 Refill(s) losartan 100 mg oral tablet: 100 mg, 1 tab(s), Oral, qDay, 30 tab(s), 0 Refill(s) melatonin 3 mg oral tablet: 3 mg, 1 tab(s), Oral, qHS, PRN: as needed for insomnia, 60 tab(s), 0 Refill(s) mirtazapine 7.5 mg oral tablet: 15 mg, 2 tab(s), Oral, qHS, 180 tab(s), 0 Refill(s) mupirocin 2% topical ointment: 1 nurys, Topical, TID, APPLY TO BACK, 15 gram(s), 0 Refill(s) ondansetron 4 mg oral tablet: 4 mg, 1 tab(s), Oral, q8h, PRN: Nausea/Vomiting, 15 tab(s), 0 Refill(s) oxyCODONE 10 mg oral tablet ( IMMEDIATE release ): 10 mg, 1 tab(s), Oral, TIDM, PRN: as needed for pain, 0 Refill(s) pantoprazole 40 mg oral enteric coated tablet: 40 mg, 1 tab(s), Oral, qAM, 60 tab(s), 0 Refill(s) rosuvastatin 40 mg oral tablet: 40 mg, 1 tab(s), Oral, qDay, 30 tab(s), 0 Refill(s) sertraline 100 mg oral tablet: 100 mg, 1 tab(s), Oral, qDay, WITH A 50MG TO EQUAL 150G, 30 tab(s), 0 Refill(s) sertraline 50 mg oral tablet: 50 mg, 1 tab(s), Oral, qDay, WITH A 100MG TO EQUAL 150MG, 30 tab(s), 0 Refill(s) tamsulosin 0.4 mg oral capsule: 0.4 mg, 1 cap(s), Oral, BID, 30 cap(s), 0 Refill(s), Medications (2) Active Scheduled: (1) lidocaine 1% (MPF) 2 mL vial pf 2.5 mg 0.25 mL, Intradermal, prep pharm Continuous: (1) Lactated Ringers 1,000 mL 1,000 mL, Intravenous, 20 mL/hr PRN: (0) Problem list: Medical Anxiety / SNOMED CT 56898248 / Confirmed Atherosclerotic heart disease of [place] coronary artery without angina pectoris / SNOMED CT 386762556865308 / Confirmed Benign prostatic hyperplasia / SNOMED CT 964841349 / Confirmed Cerebral infarction / SNOMED CT 8831504098 / Confirmed CHF - Congestive heart failure / SNOMED CT 682572332 / Confirmed Chronic kidney disease / SNOMED CT 8817950648 / Confirmed Chronic pain / SNOMED CT 239387283 / Confirmed COPD - Chronic obstructive pulmonary disease / SNOMED CT 974326115 / Confirmed Depression / SNOMED CT 482597934 / Confirmed GERD - Gastro-esophageal reflux disease / SNOMED CT 2233072339 / Confirmed Hyperkalemia / SNOMED CT 73610213 / Confirmed Hypertension / SNOMED CT 78200311 / Confirmed Hypertriglyceridemia / SNOMED CT 690687930 / Confirmed Insomnia / SNOMED CT 910939289 / Confirmed Neuropathy / SNOMED CT 7325401961 / Confirmed OCD - Obsessive-compulsive disorder / SNOMED CT 848659059 / Confirmed Osteomyelitis / SNOMED CT 27684153 / Confirmed Peripheral vascular disease / SNOMED CT 7067987107 / Confirmed Seizure disorder / SNOMED CT 209431448 / Confirmed Severe obesity / SNOMED CT 0252696116 / Confirmed Suicide / SNOMED CT 98123421 / Confirmed Tobacco user / SNOMED CT 453122685 / Confirmed Transient ischemic attack / SNOMED CT 244942083 / Confirmed Type 2 diabetes mellitus / SNOMED CT 888860290 / Confirmed, Active Problems (41) Anxiety 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 Benign prostatic hyperplasia BPH with obstruction/lower urinary tract symptoms Cerebral infarction CHF - Congestive heart failure Chronic diastolic heart failure Chronic kidney disease Chronic pain Constipation COPD - Chronic obstructive pulmonary disease Depression ED Care Plan GERD - Gastro-esophageal reflux disease Hereditary and idiopathic neuropathy, unspecified History of transient ischemic attack and cerebral infarction Hyperkalemia Hyperlipidemia Hypertension Hypertensive heart disease with HF (heart failure) Hypertriglyceridemia Hypokalemia Insomnia 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 Procedure history: Knee replacement ([id number]). Angioplasty of arterial graft ([id number]). Comments: 10/06/2022 16:20 STEFANIT - Sharon Carr LPN with stent placement Spinal fusion ([id number]). Social History Social & Psychosocial Habits Alcohol 10/27/2022 Use: Never Substance Abuse 10/27/2022 Use: Never Tobacco 10/27/2022 Tobacco Use: 5-9 cigarettes (between 1 Type: Cigarettes Tobacco use per day: 5 Number of years: 40 . Physical Examination Vital Signs(last 24 hrs) Last Charted Heart Rate Aroaycqix68 bpm (OCT 27 12:56) Resp Rate 16 br/min (OCT 27 12:56) SBPH 156mmHg (OCT 27 12:56) DBP79 mmHg (OCT 27 12:56) BMI45.33 (OCT 27 08:39) Measurements from flowsheet : Measurements 10/27/2022 8:39 EDT Height 177.8 cm Admission Weight 143.3 kg Weight Method Stated Watkins Body Weight 73.00 kg Body Mass Index 45.33 kg/m2 Body Mass Index 45.33 kg/m2 General: Alert and oriented, No acute distress. Airway: Normal mouth, Normal neck range of motion. Mallampati classification: III (soft palate, base of uvula visible). Dentition Evaluation: poor dentition. Neck: Supple. Respiratory: Lungs are clear to auscultation, Respirations are non-labored. Cardiovascular: Normal rate, Regular rhythm. Heart Sounds: Normal. Neurologic: Alert, Oriented. Review / Management Results review: No qualifying data available . Documentation reviewed: Current records. Assessment and Plan [place] Society of Anesthesiologists (ASA) physical status classification: Class III. Anesthetic Preoperative Plan Premedication: intravenous. Anesthetic technique: General. Induction: intravenously, RSI. Maintenance airway: Oral endotracheal tube. Postoperative pain management: Per surgeon. Risks discussed: nausea, vomiting, headache, sore throat, dental injury, hypotension, allergic reaction, serious complications. Informed consent: signed by patient. Notes: Late entry due to participation in pt care. Pt seen and evaluated prior to performing anesthetic. Discussed and agree upon plan. . Digitally Signed by ROZINA THOMPSON MD on 10/27/2022 02:43 PM [facility] [id number] Note06/22/2022 REFERRING PHYSICIAN: Alvarez Guardado MD REASON FOR REFERRAL: Chief Complaint Patient presents with Follow-up History of Present Illness: Here from [facility] to [facility] care. [facility]. Patient is unsure why he is here, but gentleman from the [facility] thinks it is probably because patient recently saw an forestry aide who noted he has a history of COPD and suggested he see pulmonary. Patient is aware of this diagnosis. Says he used to be on breathing treatments and oxygen but has not used them for quite some time. He does get intermittent shortness of breath and chest tightness, sometimes it is short-lived and sometimes it last for a few days. Intermittent cough, intermittent wheeze. Has no breathing treatments, has no oxygen now. Still smoking 7 cigarettes a day. Asked if he has SAVANNAH, says I have taken that test 3 times and they always tell me no. ROS: Review of Systems Past Medical History: Past Medical History: Diagnosis Date Angina at rest (HCC) Bradycardia CAD (coronary artery disease) Chronic chest pain Chronic diastolic heart failure (HCC) EF 60-65% echo 04/19/2016 Chronic kidney disease Congenital heart disease COPD (chronic obstructive pulmonary disease) (HCC) Deep vein thrombosis ([facility]) In his left leg years ago Diabetes mellitus (HCC) GERD (gastroesophageal reflux disease) Hyperlipidemia Hypertension Lymphoma (HCC) Treated with chemo and radiation, patient thinks it is in remission Migraines Myocardial infarction (CMS/HCC) (HCC) Normocytic anemia Occlusion of cerebral arteries Osteoarthritis Osteomyelitis (HCC) Pneumonia Sinusitis Chronic TIA (transient ischemic attack) Type 2 diabetes mellitus without complication (CMS/HCC) ([facility]) Past Surgical History Past Surgical History: Procedure Laterality Date CARDIAC CATHETERIZATION 04/09/2015 patent stent to the circ; mild CAD GALLBLADDER SURGERY HERNIA REPAIR hiatal and inguinal KNEE ARTHROPLASTY 8 surgies on both knees LUMBAR FUSION SPINE SURGERY T11-L-5 Social History: Social History Socioeconomic History Marital status: Tobacco Use Smoking status: Every Day Packs/day: 1.50 Types: Cigarettes Smokeless tobacco: Never Tobacco comments: Quit smokin years Substance and Sexual Activity Alcohol use: No Drug use: No Social History Narrative Merged History Encounter Medications: Current Outpatient Medications Medication Sig Dispense Refill aluminum & magnesium hydroxide-simethicone (Mylanta) 200-200-20 MG/5ML oral suspension Take by mouth every 6 hours as needed for indigestion or heartburn. amLODIPine-atorvastatin (Caduet) 10-10 MG tablet Take 1 tablet by mouth daily. ascorbic acid (Vitamin C) 500 MG tablet Take 500 mg by mouth daily. aspirin 81 MG EC tablet Take 81 mg by mouth daily. carvedilol (Coreg) 25 MG tablet Take by mouth 2 times daily (with meals). cloNIDine (Catapres) 0.3 MG tablet Take by mouth 2 times daily. concentrated insulin regular (Humulin R) 500 UNIT/ML patient supplied pump Inject under the skin continuous. cyclobenzaprine (Flexeril) 10 MG tablet Take 5 mg by mouth 3 times daily as needed for muscle spasms. dextromethorphan (Delsym) 30 MG/5ML liquid Take 60 mg by mouth 2 times daily. docusate sodium (Colace) 100 MG capsule Take 100 mg by mouth 2 times daily. doxycycline (Vibra-Tabs) 100 MG tablet Take 100 mg by mouth 2 times daily. Take with a full glass of water and do not lie down for at least 30 minutes after. finasteride (Proscar) 5 MG tablet Take 5 mg by mouth daily. Do not crush, chew, or split. fluticasone (Flonase) 50 MCG/ACT nasal spray Administer 1 spray into each nostril daily. Shake gently. Before first use, prime pump. After use, clean tip and replace cap. gabapentin (Neurontin) 800 MG tablet Take by mouth. gemfibrozil (Lopid) 600 MG tablet Take 600 mg by mouth in the morning and 600 mg in the evening. Take before meals. hydrALAZINE (Apresoline) 100 MG tablet Take 25 mg by mouth in the morning and 25 mg at noon and 25 mg before bedtime. isosorbide mononitrate ER (Imdur) 60 MG 24 hr tablet Take by mouth daily. Do not crush or chew. levETIRAcetam (Keppra) 500 MG tablet Take by mouth. loperamide (Imodium) 2 MG capsule Take 2 mg by mouth as needed for diarrhea. losartan-hydroCHLOROthiazide (Hyzaar) 100-12.5 MG tablet Take 1 tablet by mouth daily. mirtazapine (Remeron) 7.5 MG tablet Take 7.5 mg by mouth Nightly. ondansetron (Zofran) 4 MG tablet Take by mouth. oxyCODONE ER (OxyCONTIN) 40 MG 12 hr tablet Do not crush, chew, or split. polyethylene glycol, PEG, 3350 (MiraLax) 17 g packet Take by mouth. rosuvastatin (Crestor) 40 MG tablet Take 40 mg by mouth daily. sertraline (Zoloft) 100 MG tablet Take by mouth. spironolactone (Aldactone) 25 MG tablet Take by mouth daily. tamsulosin (Flomax) 0.4 MG 24 hr capsule Chicho (more content not included)...[facility]07-26-2021 NoteHNO ID: [id number] Author: Olga Chawla RN Service: ? Author Type: Registered Nurse Type: ED Notes Filed: 10/12/2020 1:39 AM Note Text: Patient swabbed for COVID-19, labeled at bedside and walked to lab.[id number] Hospital Discharge instructions* Instructions* Jane Gerber MD - 10/04/2020 Return for worse chest pain, shortness of breath fever. See your primary care doctor should your lymph nodes get enlarged. * Attachments The following attachments cannot be sent through Care Everywhere. * Chronic Pain (Lao) * Video: Is It a Heart Attack? (Lao) [facility] Work Phone: Evaluation + Plan note No data available for this section [facility] Evaluation + Plan note Future Appointments Appointment Date:08/03/2023 08:00:00 AM Scheduled Provider: Location:Heart Lab Appointment Type:CV Procedure - Heart Lab/Hybrid OR Appointment Date:09/27/2023 01:15:00 PM Scheduled Provider: Location:[facility] Appointment Type:CV OV Future Scheduled Tests Laboratory* Lipid Profile 06/26/23 [facility] Evaluation + Plan note Future Appointments Appointment Date:10/11/2023 02:30:00 PM Scheduled Provider: Location:[facility] Appointment Type:CV OV Diagnostic Tests Pending * Eosinophil Fluid smear - Panel 09/28/23 Future Scheduled Tests Laboratory* Lipid Profile 06/26/23 [facility] Evaluation note* Diagnosis Other chronic pain- Primary Chest pain, atypical Other chest pain History of lymphoma Personal history of other lymphatic and hematopoietic neoplasm Hyperglycemia Other abnormal glucose documented in this encounter [facility] Work Phone: Evaluation note* Diagnosis Chronic obstructive pulmonary disease, unspecified COPD type (HCC)- Primary Chronic respiratory failure with hypoxia (HCC) Smoker Tobacco use disorder Mediastinal lymphadenopathy Enlargement of lymph nodes Morbid obesity (HCC) Morbid obesity [facility] Diagnosis Onset Date Resolution Status Admit Date Nicotine dependence, cigaret aaron, uncomplicated acute October 17, 2024 10:56am SOB (shortness of breath) acute October 17, 2024 10:56am Obesity chronic October 17 10:56am [facility] Work Phone: Hospital Discharge instructions No data available for this section [facility] Progress note No data available for this section [facility] Reason for referral (narrative)No reason for referral information availableWKettering Health [facility] Work Phone: Summary Purpose Family History No Family History Records Found Relationship Condition Age at Onset Recorded Date/T angela Not Specified History of ulcer disease Unknown History of transfusion of whole blood Unk nown Malignant neoplasm of skin Unknown Malignant neoplasm of ovary Unknown High blood cholesterol Unknown Arthritis Unknown Depression Unknown Cardiac disease Unknown Myocardial infarction Unknown Malignant neoplasm of breast Unknown Malignant neoplasm Unknown Hypertension Unknown Parkinson's disease Unknown Malignant neoplasm of uterus Unknown Cerebrovascular accident (CVA) Unknown Advance Directives No Advanced Directives Records FoundDocuments on File Type Date Recorded 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 Service: Cardiovascular Disease Author Type: Physician Type: Discharge Summary Filed: 04/18/2019 10:32 AM Note Text: DISCHARGE SUMMARY PATIENT NAME: Chito eWlls Code Status: Not on file Highest Readmission Risk Score: 31 The 30 day readmissions risk score is derived from an internally validated risk model which evaluates patient level characteristics, utilization history, medication orders and lab results up until the day of discharge. Patients with a score of 40 or above are considered highest risk for readmission. Specific patient level drivers will be listed at the bottom of the summary. Admission: 04/12/2019 D/c: 04/18/2019 Additional Provider to Provider Information: Admitted with chest pain markedly elevated trop with only mild LV systolic dysfunction on echo. NSTEMI with spontaneous reperfusion Could not lie flat for stress or cath. So medical management. Already on coreg. Added aspirin and lipitor F/u office 2 week (more content not included)... Assessments Diagnosis Nodular lymphocyte predominant Hodgkin lymphoma, unspecified body region (HCC) Chief Complaint and Reason for Visit Chief Complaint Admit Date Throat issues May 16, 2024 9:12am ABD PAIN *ORAL & IV CONTRAST* May 8:20am Reason for Visit Admit Date Martinez esophagus May 16, 2024 9:12am Dysphagia May 16, 2024 9:12am Nausea & vomiting May 16, 2024 9:12am Chief Complaint Admit Date FATTY LIVER July 17, 2024 8:[address] October 17, 2024 10:5 6am Reason for Visit Admit Date Nicotine dependence, cigarettes, uncompl icated October 17, 2024 10:56am SOB (shortness of breath) October 17 10:56am Obesity October 17, 2024 10:5 6am Chief Complaint Admit Date FATTY LIVER July 17, 2024 8:[address] October 17, 2024 10:5 6am F17.210 - Nicotine dependence, cigarette s, uncompl November 06, 2024 10:03am TOBACCO DEPENDENCY November 11, 2024 7: 13am Reason for Visit Admit Date Nicotine dependence, cigarettes, uncompl icated October 17, 2024 10:56am Obesity October 17, 2024 10:5 6am SOB (shortness of breath) October 17 10:56am Chief Complaint Admit Date Abnormal Chest CT October 17, 2024 10:5 6am F17.210 - Nicotine dependence, cigarette s, uncompl November 06, 2024 10:03am TOBACCO DEPENDENCY November 11, 2024 7: 13am TOBACCO DEPENDENCY November 14, 2024 9: 54am Chief Complaint Admit Date Abnormal Chest CT October 17, 2024 10:5 6am F17.210 - Nicotine dependence, cigarette s, uncompl November 06, 2024 10:03am TOBACCO DEPENDENCY November 11, 2024 7: 13am TOBACCO DEPENDENCY November 14, 2024 9: 54am 6 wk FU November 27, 2024 9:21am Reason for Visit Admit Date Nicotine dependence, cigarettes, uncompl icated October 17, 2024 10:56am Obesity October 17, 2024 10:5 6am SOB (shortness of breath) October 17 10:56am Nicotine dependence, cigarettes, uncompl icated November 27, 2024 9:21am Obesity November 27, 2024 9:21am SOB (shortness of breath) November 9:21am Right middle lobe pulmonary infiltrate S eptember 2024 9:21am Additional Source Comments (unrecognized sect ion and content) No Status Records FoundNo Status Records FoundNo Status Records FoundNo Status Records FoundNo Status Records FoundNo Status Records FoundNo Status Records FoundNo Status Records FoundNo Status Records FoundNo Status Records FoundNo Status Records FoundNo Status Records FoundNo Status Records FoundNo Status Records FoundNo Status Records FoundNo Status Records FoundNo Status Records FoundNo Status Records Found INFORMATION SOURCE (unrecogn ized section and content) DATE CREATED AUTHOR 09/12/2017 [facility] DATE CREATED AUTHOR AUTHOR'S ORGANIZ ATION 09/13/2017 [facility] DATE CREATED AUTHOR AUTHOR'S ORGANIZ ATION 04/18/2019 [facility] DATE CREATED AUTHOR AUTHOR'S ORGANIZ ATION 10/25/2019 [facility] DATE CREATED AUTHOR AUTHOR'S ORGANIZ ATION 11/06/2019 [facility] DATE CREATED AUTHOR AUTHOR'S ORGANIZ ATION 11/19/2019 [facility] DATE CREATED AUTHOR AUTHOR[facility]S [facility]GANIZ ATION [facility] DATE CREATED AUTHOR AUTHOR'S ORGANIZ ATION 10/15/2020 [facility] DATE CREATED AUTHOR AUTHOR'S ORGANIZ ATION 10/18/2020 [facility] DATE CREATED AUTHOR AUTHOR'S ORGANIZ ATION 10/23/2020 [facility] DATE CREATED AUTHOR AUTHOR'S ORGANIZ ATION 02/15/2021 [facility] DATE CREATED AUTHOR AUTHOR'S ORGANIZ ATION 03/03/2021 [facility] DATE CREATED AUTHOR AUTHOR'S ORGANIZ ATION 06/07/2023 [facility] DATE CREATED AUTHOR AUTHOR'S ORGANIZ ATION 11/18/2023 [facility] ([place] DATE CREATED AUTHOR AUTHOR'S ORGANIZ ATION 11/30/2024 [facility] DATE CREATED AUTHOR AUTHOR'S ORGANIZ ATION 01/03/2025 [facility] DATE CREATED AUTHOR AUTHOR'S ORGANIZ ATION 01/14/2025 [facility] DATE CREATED AUTHOR AUTHOR'S ORGANIZ ATION 01/19/2025 [facility] Reason for Visit (unrecogniz ed section and content) Reason Comments Mass Patient states he fe lt a pea sized lump in his right upper chest/breast Reason Comments Follow-up Reason Onset Date Comments Appointment 06/06/2023 Scheduled Active and Recently Administ ered Medications (unrecognized section and content) Medication Order 10/02/2020 10/03/2020 10/04/2020 0.9 % sodium chloride bolus (COMPLETED) 1,000 mL, Intravenous, at 2,000 mL/hr, Administer over 0.5 Hours, ONCE, On 10/04/20 at 1440, For 1 dose 1508 (New Bag - Prov ider: Toñito Trujillo RN)1630 (Stopped - Provider: Marybeth Frausto RN) HYDROmorphone (DILAUDID) injection 0.5 mg (COMPLETED) 0.5 mg, Intravenous, ONCE, On 10/04/20 at 1440, For 1 dose, If oral and IV narcotics ordered, use oral first and only use IV if oral is ineffective or cannot take oral. Do Not give oral and IV within 1 hour of each other unless specifically ordered. 1509 (Given - Provid er: Toñito Trujillo RN) HYDROmorphone (DILAUDID) injection 0.5 mg (COMPLETED) 0.5 mg, Intravenous, ONCE, On 10/04/20 at 1538, For 1 dose, If oral and IV narcotics ordered, use oral first and only use IV if oral is ineffective or cannot take oral. Do Not give oral and IV within 1 hour of each other unless specifically ordered. 1550 (Given - Provid er: Marybeth Frausto RN) insulin regular (HUMULIN R;NOVOLIN R) injection 10 Units (COMPLETED) 10 Units, Intravenous, ONCE, On 10/04/20 at 1538, For 1 dose 1549 (Given - Provid er: Marybeth Frausto RN) ondansetron (ZOFRAN) injection 4 mg (COMPLETED) 4 mg, Intravenous, ONCE, On 10/04/20 at 1440, For 1 dose 1509 (Given - Provid er: Toñito Trujillo RN) sodium chloride flush 0.9 % injection 3 mL(Linked Group 1) 3 mL, Intravenous, EVERY 8 HOURS, First dose on 10/04/20 at 1440, Flush line with 3-5 mL 1513 (Given - Provid er: Toñito Trujillo RN)2240 (Due) Linked Groups Order Group 1: Saline lock IV (COMPLETED) Routine, CONTINUOUS, Starting on 10/04/20 at 1445, Until Specified And sodium chloride flush 0.9 % injection 3 mLJump to med 3 mL, Intravenous, EVERY 8 HOURS, First dose on 10/04/20 at 1440
Flush line with 3-5 mL
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 Stacey Coulter MD Primary Care Provider Active Team Status: Inactive Member Role Status Dates Dr. Stacey Coulter MD Primary Care Provider Active Start: May 16, 2024 End: May 16, 2024 Dr. Stacey Coulter MD Referring Provider Active Start: May 16, 2024 End: May 16, 2024 Dr. Wild Sanchez DO Attending Provider Active Start: May 16, 2024 End: May 16, 2024 Team Status: Active Member Role Status Dates Dr. Stacey Coulter MD Primary Care Provider Active Start: June 13, 2024 Dr. Wild Sanchez DO Attending Provider Active Start: June 13, 2024 Dr. Wild Sanchez DO Referring Provider Active Start: June 13, 2024 Team Status: Inactive Member Role Status Dates Dr. Stacey Coulter MD Primary Care Provider Active Start: June 14, 2024 End: June 14, 2024 Dr. Stacey Coulter MD Referring Provider Active Start: June 14, 2024 End: June 14, 2024 Dr. Wild Sanchez DO Attending Provider Active Start: June 14, 2024 End: June 14, 2024 Team Status: Inactive Member Role Status Dates Dr. Stacey Coulter MD Primary Care Provider Active Start: June 13, 2024 End: June 13, 2024 Dr. Wild Sanchez DO Attending Provider Active Start: June 13, 2024 End: June 13, 2024 Dr. Wild Sanchez DO Referring Provider Active Start: June 13, 2024 End: June 13, 2024 Team Status: Active Member Role/Relationship Status Dates Dr. Stacey Coulter MD Primary Care Provider Active Team Status: Inactive Member Role/Relationship Status Dates Dr. Stacey Coulter MD Primary Care Provider Active Start: July 17, 2024 End: July 17, 2024 Dr. Wild Sanchez DO Attending Provider Active Start: July 17, 2024 End: July 17, 2024 Dr. Wild Sanchez DO Referring Provider Active Start: July 17, 2024 End: July 17, 2024 Team Status: Inactive Member Role/Relationship Status Dates Dr. Stacey Coulter MD Primary Care Provider Active Start: October 17, 2024 End: October 17, 2024 Dr. Stacey Coulter MD Referring Provider Active Start: October 17, 2024 End: October 17, 2024 Dr. Sae Pepe DO Attending Provider Active S tart: October 17, 2024 End: October 17, 2024 Team Status: Active Member Role/Relationship Status Dates Dr. Lucian Cheung MD Primary Care Provider Active Team Status: Inactive Member Role/Relationship Status Dates Dr. Sae Pepe DO Attending Provider Active S tart: November 06, 2024 End: November 06, 2024 Dr. Sae Pepe DO Referring Provider Active S tart: November 06, 2024 End: November 06, 2024 Dr. Lucian Cheung MD Primary Care Provider Active Start: November 06, 2024 End: November 06, 2024 Team Status: Active Member Role/Relationship Status Dates Dr. Sae Pepe DO Attending Provider Active S tart: November 11, 2024 Dr. Sae Pepe DO Referring Provider Active S tart: November 11, 2024 Dr. Lucian Cheung MD Primary Care Provider Active Start: November 11, 2024 Team Status: Inactive Member Role/Relationship Status Dates Dr. Stacey Coulter MD Primary Care Provider Active Start: October 17, 2024 End: October 17, 2024 Dr. Stacey Coulter MD Referring Provider Active Start: October 17, 2024 End: October 17, 2024 Dr. Sae Pepe DO Attending Provider Active S tart: October 17, 2024 End: October 17, 2024 Team Status: Inactive Member Role/Relationship Status Dates Dr. Sae Pepe DO Attending Provider Active S tart: November 06, 2024 End: November 06, 2024 Dr. Sae Pepe DO Referring Provider Active S tart: November 06, 2024 End: November 06, 2024 Dr. Lucian Cheung MD Primary Care Provider Active Start: November 06, 2024 End: November 06, 2024 Team Status: Inactive Member Role/Relationship Status Dates Dr. Sae Pepe DO Attending Provider Active S tart: November 11, 2024 End: November 11, 2024 Dr. Sae Pepe DO Referring Provider Active S tart: November 11, 2024 End: November 11, 2024 Dr. Lucian Cheung MD Primary Care Provider Active Start: November 11, 2024 End: November 11, 2024 Team Status: Active Member Role/Relationship Status Dates Dr. Sae Pepe DO Attending Provider Active S tart: November 14, 2024 Dr. Sae Pepe DO Referring Provider Active S tart: November 14, 2024 Dr. Sae Brown , DO Other Provider Active Start : November 14, 2024 Dr. Lucian Cheung MD Primary Care Provider Active Start: November 14, 2024 Team Status: Inactive Member Role/Relationship Status Dates Dr. Lucian Cheung MD Primary Care Provider Active Start: November 27, 2024 End: November 27, 2024 Dr. Lucian Cheung MD Referring Provider Active Start: November 27, 2024 End: November 27, 2024 JENNIFER CardC Attending Provider Active Start: November 27, 2024 End: November 27, 2024 Goals (unrecognized section and content) Goals may be documented in a n alternate section FOR RECORDS PERTAINING TO PATIENTS WHO ARE OR HAVE BEEN ENROLLED IN A CHEMICAL DEPENDENCY/SUBSTANCEABUSE PROGRAM, SOME INFORMATION MAY BE OMITTED. This clinical summary was aggregated from multiple sources. Caution should be exercised in using it in the provision of clinical care. This summary normalizes information from multiple sources, and as a consequence, information in this document may materially change the coding, format and clinical context of patient data. In addition, data may be omitted in some cases. CLINICAL DECISIONS SHOULD BE BASED ON THE PRIMARY CLINICAL RECORDS. [employer] provides no warranty or guarantee of the accuracy or completeness of information in this document.
[2025-02-28] MEDS: Lactated Ringers 1,000 ML 15 ML IV (06:26)
--- NOTE | 2025-02-28 06:30 | PCM.PRE.AN2 ---
ASA Classification* ASA Classification ASA Classification: 3 Assessment & Plan Anesthesia* Anesthesia Assessment Anesthesia Assessment: Discussed sedation and/or anesthesia options, risks, benefits, and alternatives with patient/parents/legal guardian/POA. Questions invited. The patient/parents/legal guardian/POA seems to understand and agrees to proceed with anesthesia plan. Reviewed the physical assessment, medical history, allergy history and patient home medications list prior to surgery/procedure/anesthetic and documented any changes. Performed airway and anesthesia risk assessments. Anesthesia Type Anesthesia Type: MAC Anesthesia Focused Assessment* Temperature: 97.8 F Pulse Rate: 62 Blood Pressure: 130/67 Respiratory Rate: 16 Pulse Ox: 95 Airway Assessment Mouth opens: >3 cm Mallampati Score: II Labs Anesthesia Preop lab: CBC CHEMISTRY POC Glucose, (74-106) 85 mg/dL 10/04/23, 08:10 COAG Pre-Assessment Diagnosis/Proposed Procedure Planned Operative Procedure(s): Egd Anesthesia History Anesthesia History - finance director: Anesthesia History - finance director Hx Hospitalization Yes: [facility], HYPERKALEMIA 02/26/25 14:35 Any Problems With Anesthesia No 02/26/25 14:35 Cholinesterase deficiency No 02/26/25 14:35 You/Your Family Experience No 02/26/25 14:35 fever (hyperthermia) with Relationship Recent Exposure to Contagious No 10/04/23 08:05 Disease Does patient have nerve No 02/26/25 14:35 stimulator Patient instructed to have device shut off --Does patient have Pacemaker No 02/28/25 06:16 or ICD? When Was Last Pacemaker Check QUESTION #4 FULL TEXT: You/Your Family Experience fever (hyperthermia) with Anesthesia Last Oral Intake Last Oral intake: Last Oral Intake NPO since 02:00 02/28/25 06:16 Meds taken in AM with sips of Yes 02/28/25 06:16 water? Meds patient instructed to oxycodone 02/28/25 06:16 take am of surgery PONV PONV - finance director: PONV - finance director Female No 02/26/25 14:35 HX of Motion Sickness Yes 02/26/25 14:35 HX of N/V After Surgery Yes 02/26/25 14:35 Non-Smoker No 02/26/25 14:35 Duration of Surgery greater No 02/26/25 14:35 than 60 minutes Number of Risk Factors 2 02/26/25 14:35 PONV Score Moderate Risk 02/26/25 14:35 Height & Weight Height & Weight: Anesthesia: Height & Weight Height 5 ft 10 in 02/28/25 06:16 Weight: 133 kg 02/28/25 06:16 Body Mass Index (BMI) 42.0 02/28/25 06:16 Respiratory Assessment Respiratory Assessment - finance director: Respiratory Tract Infection Hx - finance director Hx Respiratory Tract Infection No 02/26/25 14:35 STOP Sleep Apnea STOP Sleep Apnea - finance director: STOP Sleep Apnea - finance director Hx Hypertension Yes 02/26/25 14:35 Hx Sleep Apnea No 02/26/25 14:35 CPAP BIPAP Do you snore loudly (louder No 02/26/25 14:35 than talking or can be heard Do you often feel tired/ Yes 02/26/25 14:35 fatigued/ sleepy during daytime? Has anyone observed you stop No 02/26/25 14:35 breathing during sleep? STOP Results Positive 02/26/25 14:35 QUESTION #5 FULL TEXT : Do you snore loudly (louder than talking or can be heard through closed doors)? 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 Use History - finance director: Tobacco Use History - finance director Tobacco Use Smoking Status Current every day smoker 02/26/25 14:35 Hx Tobacco Use Yes 02/26/25 14:35 Years Smoking 40 02/26/25 14:35 Packs Smoked per Day 0.5 02/26/25 14:35 Smoking Cessation Date was within the last 15 years Hx Smoking Cessation Date Hx Smoking Cessation Counseling Hematologic Medial History Hematologic Hx - finance director: Hematologic Medical Hx - building coordinator Hx of Blood Transfusion No 02/26/25 14:35 Hx of Transfusion in last 3 No 02/26/25 14:35 Months Date of Last Transfusion (if within last 3 months) Ever experience any problems No 02/26/25 14:35 with transfusion(s)? Specify any problems Hx of Preganancy in last 3 N/A 02/26/25 14:35 Months Nurse Filling Out Transfusion [id number] 02/26/25 14:35 & Questions: Date: 02/26/25 02/26/25 14:35 Time: 14:35 02/26/25 14:35 Patient unable to answer at this time (ie. confused, unrespo /Reproduction History /Reproductive History - finance director: /Reproductive Hx- finance director Hx Now Gestational Age (in weeks): EDC: Hx Hx Para Hx Section SAB No 02/26/25 14:35 Does the father of the baby or his family experience fever w Father of the baby Malignant Hypertension history comment Active Medications Active Medications: Current Medications Generic Name Dose Route Start Last Admin Trade Name Freq PRN Reason Stop Dose Admin Botulinum Toxin Type A 100 units 02/28/25 07:00 02/28/25 06:50 Botulinum Toxin A 100 Units Vial IJ 02/28/25 07:01 100 units PREOP ONE Administration Lactated Ringer's 1,000 mls @ 15 mls/hr 02/28/25 06:30 02/28/25 06:26 IV 15 mls/hr .Q48H EDELMIRA Administration PFSH Medical History Stage 4 chronic kidney disease OCD (obsessive compulsive disorder) TIA (transient ischemic attack) History of ulceration Dependence on non-invasive ventilation Shortness of breath on exertion Wears glasses Loose, teeth History of Clostridium difficile infection Bipolar disorder Alcohol use Substance abuse Bruising Abrasion Rash Rheumatoid arthritis Prostate disease History of renal dialysis Anemia Fatty liver Restless legs Migraine headache Injury of head and neck Seizures History of diverticulitis On home oxygen therapy Cardiology follow-up encounter History of echocardiogram History of CHF (congestive heart failure) Gastric reflux retirement resident MRSA infection Depression Insulin dependent diabetes mellitus Walker as ambulation aid Arthritis History of renal disease Injury of back Back pain Smoker Leg cramps History of pain when walking History of edema Hypertension History of heart attack Hypertension in stage 3 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 Personal history of transient ischemic attack (TIA), and cerebral infarction without residual deficits OCD (obsessive compulsive disorder) Hypokalemia Benign prostatic hyperplasia with lower urinary tract symptoms Constipation GERD (gastroesophageal reflux disease) Insomnia Anxiety Nicotine dependence, cigarettes, uncomplicated Atherosclerotic heart disease of [place] coronary artery without angina pectoris Chronic multifocal osteomyelitis, 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, intractable, without status epilepticus Hereditary and idiopathic neuropathy, unspecified Other mechanical complication of implanted electronic neurostimulator of spinal cord electrode (lead), subsequent encounter Hiatal hernia Cholecystectomy planned Neuropathy Kidney disease High cholesterol Heart disease Gastrointestinal problem COPD (chronic obstructive pulmonary disease) Diabetes Back problem Allergies Home Medications ?Medication ?Instructions ?Recorded ?Last Taken ?Type amlodipine 10 mg tablet 10 mg PO DAILY 09/01/21 02/27/25 History ascorbic acid (vitamin C) 500 mg 500 mg PO DAILY 09/01/21 10/03/23 History tablet aspirin 81 mg tablet,delayed 81 mg PO DAILY 09/01/21 02/22/25 History release (Adult Low Dose Aspirin) clonidine HCl 0.3 mg tablet 0.3 mg PO TID 09/01/21 02/27/25 History docusate sodium 100 mg tablet 100 mg PO DAILY 09/01/21 02/27/25 History doxycycline hyclate 100 mg tablet 100 mg PO BID 09/01/21 10/03/23 History finasteride 5 mg tablet 5 mg PO DAILY 09/01/21 02/27/25 History gemfibrozil 600 mg tablet 600 mg PO BID 09/01/21 02/27/25 History hydralazine 100 mg tablet 100 mg PO TID 09/01/21 02/27/25 History levetiracetam 500 mg tablet 500 mg PO BID 09/01/21 02/27/25 History (Keppra) loperamide 2 mg tablet 2 mg PO Q4H PRN PRN Diarrhea 09/01/21 Unknown History oxycodone 10 mg tablet 10 mg PO 4X/DAY 09/01/21 02/28/25 History polyethylene glycol 3350 17 4 g PO PRN PRN Constipation 09/01/21 Unknown History gram/dose oral powder (Miralax) sertraline 100 mg tablet 100 mg PO DAILY 09/01/21 10/04/23 History tamsulosin 0.4 mg capsule (Flomax) 0.4 mg PO BID 09/01/21 10/03/23 History cholecalciferol (vitamin D3) 125 125 mcg PO DAILY 12/07/22 10/04/23 History mcg (5,000 unit) capsule dapagliflozin propanediol 10 mg 10 mg PO DAILY 12/07/22 10/03/23 History tablet (Farxiga) bismuth subsalicylate 525 mg/15 mL 1,050 mg PO Q30-60M PRN indigestion 06/14/23 Unknown History oral suspension (Pepto-Bismol Max St) carvedilol 25 mg tablet 50 mg PO BID 06/14/23 02/27/25 History duloxetine 30 mg capsule,delayed 30 mg PO BID 06/14/23 10/04/23 History release flash glucose scanning reader #1 ea 06/14/23 Unknown Rx (FreeStyle [place] 2 [place]) flash glucose sensor (FreeStyle #2 ea 06/14/23 Unknown Rx Claude 2 Sensor kit) gabapentin 800 mg tablet 800 mg PO TID 06/14/23 02/27/25 History insulin aspart U-100 100 unit/mL 1 sliding scale dose subcut 06/14/23 10/03/23 History (3 mL) subcutaneous pen (Novolog .COMPLEX FlexPen U-100 Insulin aspart) ipratropium 0.5 mg-albuterol 3 mg 3 ml inhalation Q6H PRN PRN 06/14/23 Unknown History (2.5 mg base)/3 mL nebulization shortness of breath or wheezing soln melatonin 3 mg capsule 3 mg PO HS 06/14/23 02/27/25 History mirtazapine 7.5 mg tablet 7.5 mg PO QHS 06/14/23 10/03/23 History ondansetron HCl 4 mg tablet 4 mg PO Q8H PRN PRN nausea and 06/14/23 Unknown History vomiting rosuvastatin 40 mg tablet 40 mg PO QDAY 06/14/23 10/03/23 History clopidogrel 75 mg tablet (Plavix) 75 mg PO DAILY 10/03/23 02/22/25 History dulaglutide 3 mg/0.5 mL 3 mg (0.5 mL) subcut QWEEK #2 mL 12/13/23 Unknown Rx subcutaneous pen injector (Trulicity) budesonide-formoterol HFA 80 1 inh inhalation BID 10/17/24 Unknown History mcg-4.5 mcg/actuation aerosol inhaler (Symbicort) chlorthalidone 25 mg tablet 25 mg PO QDAY 10/17/24 02/22/25 History cyclobenzaprine 10 mg tablet 10 mg PO TID 10/17/24 Unknown History dextromethorphan-guaifenesin 10 10 ml PO Q4H PRN cough 10/17/24 Unknown History mg-100 mg/5 mL oral liquid (Rachael-Tussin DM) doxazosin 8 mg tablet 8 mg PO QDAY 10/17/24 02/27/25 History ergocalciferol (vitamin D2) 1,250 See Rx Instructions PO QDAY 10/17/24 Unknown History mcg (50,000 unit) capsule (Vitamin D2) famotidine 40 mg tablet 40 mg PO BID 10/17/24 02/27/25 History furosemide 40 mg tablet 40 mg PO QDAY 10/17/24 Unknown History glucagon 1 mg solution for 1 mg subcut Q20M PRN hypoglycemia 10/17/24 Unknown History injection (Glucagon Emergency Kit) insulin regular hum U-500 conc 500 15 unit subcut ACHS 10/17/24 Unknown History unit/mL subcutaneous soln (Humulin R U-500 (Concentrated) Insulin) losartan 25 mg tablet 25 mg PO QDAY 10/17/24 02/27/25 History potassium chloride 20 mEq 20 meq PO DAILY 10/17/24 Unknown History tablet,extended release isosorbide mononitrate 30 mg 90 mg PO QDAY 11/27/24 02/27/25 History tablet,extended release 24 hr loratadine 10 mg tablet 10 mg PO QDAY 11/27/24 Unknown History oxymetazoline 0.05 % nasal spray 1 spray intranasal Q4H PRN 11/27/24 Unknown History (Afrin (oxymetazoline)) Lactobacillus rhamnosus GG 10 1 cap PO DAILY 01/15/25 Unknown History billion cell capsule (Culturelle) chlorhexidine gluconate 0.12 % 15 ml buccal BID 01/15/25 Unknown History mouthwash (Paroex Oral Rinse) lanolin alcohols-mineral 1 applic topical DAILY PRN dry skin 01/15/25 Unknown History oil-w.petrolatum-ceresin topical cream (Eucerin topical cream) menthol 10 % topical cream 1 applic topical Q8H PRN PRN 01/15/25 Unknown History (Biofreeze (menthol)) arthritic pain pseudoephedrine-ibuprofen 30 1 cap PO Q6H PRN PRN cold symptoms 01/15/25 Unknown History mg-200 mg capsule (Advil Cold and Sinus) spironolactone 25 mg tablet 25 mg PO DAILY 10/29/25 12/06/25 History (Aldactone) Allergy/AdvReac Type Severity Reaction Status Date / Time acetaminophen Allergy Intermediate Other Verified 01/15/25 09:10 haloperidol (From Haldol) Allergy Intermediate Other Verified 01/15/25 09:10 hydrocodone Allergy Intermediate Other Verified 01/15/25 09:10 NSAIDS (Non-Steroidal Allergy Intermediate KIDNEY Verified 01/15/25 09:10 Anti-Inflamma ISSUES tetrahydrocannabinol (THC) Allergy Other Verified 01/15/25 09:10 Family History Other Arthritis Breast cancer CVA (cerebral vascular accident) Cancer Depression H/O transfusion of whole blood H/O ulcer disease Heart disease High cholesterol Hypertension Myocardial infarction Ovarian cancer Parkinson disease Skin cancer Uterine cancer Surgical History History of lumbar fusion History of knee replacement procedure of right knee History of esophagogastroduodenoscopy (EGD) History of cardiac catheterization Hx of total knee arthroplasty History of cholecystectomy Presence of coronary angioplasty implant and graft Hx of heart artery stent H/O spinal fusion H/O umbilical hernia repair H/O arthroscopic knee surgery Social History Smoking Status: Current every day smoker tobacco type: cigarettes alcohol intake: former substance use type: does not use what type of physical activity do you participate in: none and other Review of Systems (Anesthesia) ROS Narrative System reviewed and no additional complaints, except as documented.
--- NOTE | 2025-02-28 06:33 | PCM.HP.STD ---
HPI - General General Date of Admission: 02/28/25 Date of Service: 02/28/25 Chief Complaint: Dysphagia [facility] ED 08.23.21 for LUQ abdominal pain starting that day with a sensation of a pop despite doing nothing strenuous; additional symptoms include chronic nausea and emesis approximately 4 years. He was given percocet and instructed to follow up with PCP as outpatient. Narcotic induced constipation also an issue; utilizes oxycodone for back pain. Bowel regimen senna tabs and is effective in regular BM. CT abd/pel 08.23.21 [facility] for abdominal pain noted cholecystectomy; diffuse thickening of distal esophagus; fatty replacement of pancreas; moderate stool burden; diverticulosis of descending colon; SQ tissue stranding, correlate with injection. Biochemical Workup RBC-3.77; HGB 11.1; HCT 32.9; Lymphocytes 14.4; Lipase 39; Glucose 250; BUN 44; Creatinine 2.04; Alk Phos 125; Globulin 4.0; GFR 34; A1C 8.2 *BGI established 12.09.21 with continued N/V and dysphagia. Reports history of hiatal hernia. 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 Nystatin suspension; GET Gastric emptying study not yet performed OV 3.. with continued N/V and dysphagia. Symptoms are intermittent and vary by the day. Some days, for several days, he has no symptoms and feels overall well. Symptom presentation varies and can go a week or more without difficulty. OV 4.5.24- Pt states he is having trouble swallowing again. Is worse than last time. Was on liquid Carafate but the script ran out. His sx are better on Carafate. Says food takes a while to get down to stomach. Sometimes has to vomit to get food out. Is not having any abdominal pain or issues with bowels. EGD 7 Esophageal plaques were found, suspicious for candidiasis. Abnormal esophageal motility, suspicious for achalasia. Food in the esophagus. Retained gastric fluid. Fluid aspiration performed. No gross lesions in the first portion of the duodenum. OV 2..25 pt reports continued trouble swallowing, states that he is having trouble keeping things down. Pt reports that he is now only smoking 2-3 cigarettes a day because it dominguez his throat when he smokes. Pt reports constant abdominal pain. [facility] Medical History Stage 4 chronic kidney disease OCD (obsessive compulsive disorder) TIA (transient ischemic attack) History of ulceration Dependence on non-invasive ventilation Shortness of breath on exertion Wears glasses Loose, teeth History of Clostridium difficile infection Bipolar disorder Alcohol use Substance abuse Bruising Abrasion Rash Rheumatoid arthritis Prostate disease History of renal dialysis Anemia Fatty liver Restless legs Migraine headache Injury of head and neck Seizures History of diverticulitis On home oxygen therapy Cardiology follow-up encounter History of echocardiogram History of CHF (congestive heart failure) Gastric reflux senior care resident MRSA infection Depression Insulin dependent diabetes mellitus Walker as ambulation aid Arthritis History of renal disease Injury of back Back pain Smoker Leg cramps History of pain when walking History of edema Hypertension History of heart attack Hypertension in stage 3 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 Personal history of transient ischemic attack (TIA), and cerebral infarction without residual deficits OCD (obsessive compulsive disorder) Hypokalemia Benign prostatic hyperplasia with lower urinary tract symptoms Constipation GERD (gastroesophageal reflux disease) Insomnia Anxiety Nicotine dependence, cigarettes, uncomplicated Atherosclerotic heart disease of [place] coronary artery without angina pectoris Chronic multifocal osteomyelitis, 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, intractable, without status epilepticus Hereditary and idiopathic neuropathy, unspecified Other mechanical complication of implanted electronic neurostimulator of spinal cord electrode (lead), subsequent encounter Hiatal hernia Cholecystectomy planned Neuropathy Kidney disease High cholesterol Heart disease Gastrointestinal problem COPD (chronic obstructive pulmonary disease) Diabetes Back problem Allergies Home Medications ?Medication ?Instructions ?Recorded ?Last Taken ?Type amlodipine 10 mg tablet 10 mg PO DAILY 09/01/21 10/04/23 History ascorbic acid (vitamin C) 500 mg 500 mg PO DAILY 09/01/21 10/03/23 History tablet aspirin 81 mg tablet,delayed 81 mg PO DAILY 09/01/21 10/03/23 History release (Adult Low Dose Aspirin) clonidine HCl 0.3 mg tablet 0.3 mg PO TID 09/01/21 10/04/23 History docusate sodium 100 mg tablet 100 mg PO DAILY 09/01/21 Unknown History doxycycline hyclate 100 mg tablet 100 mg PO BID 09/01/21 10/03/23 History finasteride 5 mg tablet 5 mg PO DAILY 09/01/21 10/03/23 History gemfibrozil 600 mg tablet 600 mg PO BID 09/01/21 10/03/23 History hydralazine 100 mg tablet 100 mg PO TID 09/01/21 10/03/23 History levetiracetam 500 mg tablet 500 mg PO BID 09/01/21 10/04/23 History (Keppra) loperamide 2 mg tablet 2 mg PO Q4H PRN PRN Diarrhea 09/01/21 Unknown History oxycodone 10 mg tablet 10 mg PO 4X/DAY 09/01/21 02/28/25 History polyethylene glycol 3350 17 4 g PO PRN PRN Constipation 09/01/21 Unknown History gram/dose oral powder (Miralax) sertraline 100 mg tablet 100 mg PO DAILY 09/01/21 10/04/23 History tamsulosin 0.4 mg capsule (Flomax) 0.4 mg PO BID 09/01/21 10/03/23 History cholecalciferol (vitamin D3) 125 125 mcg PO DAILY 12/07/22 10/04/23 History mcg (5,000 unit) capsule dapagliflozin propanediol 10 mg 10 mg PO DAILY 12/07/22 10/03/23 History tablet (Farxiga) bismuth subsalicylate 525 mg/15 mL 1,050 mg PO Q30-60M PRN indigestion 06/14/23 Unknown History oral suspension (Pepto-Bismol Max St) carvedilol 25 mg tablet 50 mg PO BID 06/14/23 10/04/23 History duloxetine 30 mg capsule,delayed 30 mg PO BID 06/14/23 10/04/23 History release flash glucose scanning reader #1 ea 06/14/23 Unknown Rx (FreeStyle Claude 2 [place]) flash glucose sensor (FreeStyle #2 ea 06/14/23 Unknown Rx Claude 2 Sensor kit) gabapentin 800 mg tablet 800 mg PO TID 06/14/23 10/04/23 History insulin aspart U-100 100 unit/mL 1 sliding scale dose subcut 06/14/23 10/03/23 History (3 mL) subcutaneous pen (Novolog .COMPLEX FlexPen U-100 Insulin aspart) ipratropium 0.5 mg-albuterol 3 mg 3 ml inhalation Q6H PRN PRN 06/14/23 Unknown History (2.5 mg base)/3 mL nebulization shortness of breath or wheezing soln melatonin 3 mg capsule 3 mg PO HS 06/14/23 10/03/23 History mirtazapine 7.5 mg tablet 7.5 mg PO QHS 06/14/23 10/03/23 History ondansetron HCl 4 mg tablet 4 mg PO Q8H PRN PRN nausea and 06/14/23 Unknown History vomiting rosuvastatin 40 mg tablet 40 mg PO QDAY 06/14/23 10/03/23 History clopidogrel 75 mg tablet (Plavix) 75 mg PO DAILY 10/03/23 10/03/23 History dulaglutide 3 mg/0.5 mL 3 mg (0.5 mL) subcut QWEEK #2 mL 12/13/23 Unknown Rx subcutaneous pen injector (Trulicity) budesonide-formoterol HFA 80 1 inh inhalation BID 10/17/24 Unknown History mcg-4.5 mcg/actuation aerosol inhaler (Symbicort) chlorthalidone 25 mg tablet 25 mg PO QDAY 10/17/24 Unknown History cyclobenzaprine 10 mg tablet 10 mg PO TID 10/17/24 Unknown History dextromethorphan-guaifenesin 10 10 ml PO Q4H PRN cough 10/17/24 Unknown History mg-100 mg/5 mL oral liquid (Rachael-Tussin DM) doxazosin 8 mg tablet 8 mg PO QDAY 10/17/24 Unknown History ergocalciferol (vitamin D2) 1,250 See Rx Instructions PO QDAY 10/17/24 Unknown History mcg (50,000 unit) capsule (Vitamin D2) famotidine 40 mg tablet 40 mg PO BID 10/17/24 Unknown History furosemide 40 mg tablet 40 mg PO QDAY 10/17/24 Unknown History glucagon 1 mg solution for 1 mg subcut Q20M PRN hypoglycemia 10/17/24 Unknown History injection (Glucagon Emergency Kit) insulin regular hum U-500 conc 500 15 unit subcut ACHS 10/17/24 Unknown History unit/mL subcutaneous soln (Humulin R U-500 (Concentrated) Insulin) losartan 25 mg tablet 25 mg PO QDAY 10/17/24 Unknown History potassium chloride 20 mEq 20 meq PO DAILY 10/17/24 Unknown History tablet,extended release isosorbide mononitrate 30 mg 90 mg PO QDAY 11/27/24 Unknown History tablet,extended release 24 hr loratadine 10 mg tablet 10 mg PO QDAY 11/27/24 Unknown History oxymetazoline 0.05 % nasal spray 1 spray intranasal Q4H PRN 11/27/24 Unknown History (Afrin (oxymetazoline)) Lactobacillus rhamnosus GG 10 1 cap PO DAILY 01/15/25 Unknown History billion cell capsule (Culturelle) chlorhexidine gluconate 0.12 % 15 ml buccal BID 01/15/25 Unknown History mouthwash (Paroex Oral Rinse) lanolin alcohols-mineral 1 applic topical DAILY PRN dry skin 01/15/25 Unknown History oil-w.petrolatum-ceresin topical cream (Eucerin topical cream) menthol 10 % topical cream 1 applic topical Q8H PRN PRN 01/15/25 Unknown History (Biofreeze (menthol)) arthritic pain pseudoephedrine-ibuprofen 30 1 cap PO Q6H PRN PRN cold symptoms 01/15/25 Unknown History mg-200 mg capsule (Advil Cold and Sinus) spironolactone 25 mg tablet 25 mg PO DAILY 01/15/25 Unknown History (Aldactone) Allergy/AdvReac Type Severity Reaction Status Date / Time acetaminophen Allergy Intermediate Other Verified 01/15/25 09:10 haloperidol (From Haldol) Allergy Intermediate Other Verified 01/15/25 09:10 hydrocodone Allergy Intermediate Other Verified 01/15/25 09:10 NSAIDS (Non-Steroidal Allergy Intermediate KIDNEY Verified 01/15/25 09:10 Anti-Inflamma ISSUES tetrahydrocannabinol (THC) Allergy Other Verified 01/15/25 09:10 Family History Other Arthritis Breast cancer CVA (cerebral vascular accident) Cancer Depression H/O transfusion of whole blood H/O ulcer disease Heart disease High cholesterol Hypertension Myocardial infarction Ovarian cancer Parkinson disease Skin cancer Uterine cancer Surgical History History of lumbar fusion History of knee replacement procedure of right knee History of esophagogastroduodenoscopy (EGD) History of cardiac catheterization Hx of total knee arthroplasty History of cholecystectomy Presence of coronary angioplasty implant and graft Hx of heart artery stent H/O spinal fusion H/O umbilical hernia repair H/O arthroscopic knee surgery Social History Smoking Status: Current every day smoker tobacco type: cigarettes alcohol intake: former substance use type: does not use what type of physical activity do you participate in: none and other ROS Constitutional Constitutional: Denies fatigue, fever(s), poor appetite, weight gain or weight loss Gastrointestinal Gastrointestinal: Denies belching, bloating, change in bowel habits, change in stool character, chewing difficulty, coffee ground emesis, constipation, cramping, diarrhea, dyspepsia, dysphagia, early satiety, excessive flatus, fecal incontinence, heartburn, hematemesis, hematochezia, hemorrhoids, loose stools, melena, nausea, odynophagia, rectal bleeding, tenesmus, vomiting or weight changes Vital Signs Vital Signs Vital Signs: 02/28/25 06:14 02/28/25 06:16 02/28/25 06:19 Temperature 97.8 F Temperature Source Temporal Pulse Rate 62 Respiratory Rate 16 Respiratory Pattern Normal Blood Pressure 130/67 H Blood Pressure Mean 88 Blood Pressure Source Monitor Blood Pressure Position Sitting Blood Pressure Location Left Arm Baseline BP 130/67 Pulse Ox 95 Oxygen Delivery Method Room Air Weight Weight: 293 lb 3.437 oz Body Mass Index (BMI) 42.0 Physical Exam Const alert, oriented x3, no apparent distress and healthy appearing General Appearance: cooperative GI normal to inspection, nondistended, normoactive bowel sounds, soft to palpation, non-tender and non-distended Percussion: normal to percussion Rectal Exam: deferred Assessment & Plan Assessment/Plan (1) Martinez esophagus: (2) Nausea & vomiting: (3) Dysphagia: PLAN: Assessment and Plan Assessment and Plan (1) Nausea & vomiting: Status: Chronic Plan: Nausea vomiting in the setting of a 30-year history of diabetes mellitus would be gastroparesis, dumping, peptic ulcer disease, slipped hiatal hernia repair, dysmotility of the upper GI tract. He will get a gastric emptying study so we can evaluate his upper GI tract. He did have food in the stomach that was seen on his upper endoscopy. I suspect that he does have gastroparesis. He cannot lay flat for a gastric emptying study therefore we will get a CT scan with oral and IV contrast. (2) Dysphagia: Status: Chronic Plan: I think some of this will continue to position. Also he has signs and symptoms motility disorder. He will likely need manometry to see if he would benefit from Botox therapy. He does take narcotics which can exacerbate esophageal motility disorders along with motility disorders of the stomach and small bowel along with the colon. We will schedule him for manometry. 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 He is on PPI therapy once a day. He may benefit from having it twice a day but he has chronic kidney disease secondary to diabetic nephropathy. Orders: Orders Abdomen/Pelvis WITH Contrast Today R10.9 - Unspecified abdominal pain, R11.2 - Nausea with vomiting, unspecified ]
[2025-02-28] MEDS: 0.9% Normal Saline (Pres. free 10 ML Vial (06:50)
--- NOTE | 2025-02-28 07:00 | OP.PROVAT_ITS ---
02/28/2025 Alberto Goldsmith Md Re : Upper GI endoscopy procedure for Chito Brvao Dear Dr. Goldsmith This procedure was performed on Friday, February 28, 2025. My impressions and recommendations are as follows: Impressions : - Abnormal esophageal motility, established achalasia. Injected with botulinum toxin. - No gross lesions in the entire stomach. - No gross lesions in the entire examined duodenum. - No specimens collected. Recommendations : - Discharge patient to home. - Resume previous diet. - Continue present medications. - Await pathology results. My findings are described in the full procedure note, which is enclosed. If I can be of further assistance, please feel free to contact me at . Sincerely, Wild Sanchez, 02/28/2025 6:59:23 AM This report has been signed electronically.
--- NOTE | 2025-02-28 07:00 | OP.EGD_ITS ---
Patient Name: Chito Bravo Procedure Date: 02/28/2025 6:16 AM Date of : 1965 Age: 59 Procedure: Upper GI endoscopy Indications: Dysphagia, Achalasia, For botulinum toxin injection of achalasia Providers: Wild Sanchez DO Medicines: Monitored Anesthesia Care Patient Profile: This is a 59 year old male. Refer to note in patient chart for documentation of history and physical. Patient has symptoms of chronic chest pain and dysphagia with both liquids and solids. Complications: No immediate complications. Procedure: Pre-Anesthesia Assessment: - Prior to the procedure, a History and Physical was performed, and patient medications and allergies were reviewed. The patient is competent. The risks and benefits of the procedure and the sedation options and risks were discussed with the patient. All questions were answered and informed consent was obtained. Patient identification and proposed procedure were verified by the physician in the pre-procedure area. Mental Status Examination: alert and oriented. Airway Examination: normal oropharyngeal airway and neck mobility. Respiratory Examination: clear to auscultation. CV Examination: normal. Prophylactic Antibiotics: The patient does not require prophylactic antibiotics. Prior Anticoagulants: The patient has taken no anticoagulant or antiplatelet agents. ASA Grade Assessment: II - A patient with mild systemic disease. After reviewing the risks and benefits, the patient was deemed in satisfactory condition to undergo the procedure. The anesthesia plan was to use monitored anesthesia care (MAC). Immediately prior to administration of medications, the patient was re-assessed for adequacy to receive sedatives. The heart rate, respiratory rate, oxygen saturations, blood pressure, adequacy of pulmonary ventilation, and response to care were monitored throughout the procedure. The physical status of the patient was re-assessed after the procedure. After obtaining informed consent, the endoscope was passed under direct vision. Throughout the procedure, the patient's blood pressure, pulse, and oxygen saturations were monitored continuously. The Endoscope was introduced through the mouth, and advanced to the second part of duodenum. The upper GI endoscopy was accomplished without difficulty. The patient tolerated the procedure well. Scope In: 6:48:49 AM Scope Out: 6:53:53 AM Total Procedure Duration Time 0 hours 5 minutes 4 seconds Findings: Abnormal motility was noted in the esophagus. The cricopharyngeus was abnormal. There is a decrease in motility of the esophageal body. The distal esophagus/lower esophageal sphincter is spastic, but gives up passage to the endoscope. Secondary peristaltic waves are noted. Area was successfully injected with 100 units botulinum toxin. No gross lesions were noted in the entire examined stomach. No gross lesions were noted in the entire examined duodenum. Impression: - Abnormal esophageal motility, established achalasia. Injected with botulinum toxin. - No gross lesions in the entire stomach. - No gross lesions in the entire examined duodenum. - No specimens collected. Recommendation: - Discharge patient to home. - Resume previous diet. - Continue present medications. - Await pathology results. Procedure Code(s): --- Professional --- 99008, Esophagogastroduodenoscopy, flexible, transoral; with directed submucosal injection(s), any substance CPT copyright 2021 [employer]. All rights reserved. The codes documented in this report are preliminary and upon typesetters printer review may be revised to meet current compliance requirements. Wild Sanchez DO 02/28/2025 6:59:23 AM This report has been signed electronically. Number of Addenda: 0 Note Initiated On: 02/28/2025 6:16 AM
--- NOTE | 2025-02-28 07:02 | PCM.POST.ANE ---
Anesthesia: Postop Eval I Current Vital Signs Temperature: 97.1 F Pulse Rate: 62 Blood Pressure: 119/60 Respiratory Rate: 16 Pulse Ox: 94 Oxygen Delivery Method: Room Air Assessment Airway patent: Yes Spontaneous unlabored respirations: Yes Mental status: Awake and Calm nausea: No Vomiting: No Anesthesia Complication: No Fluid Hydration Crystalloid volume administer (ml): 400 Total IV fluid infused: 400 Progress Note Anesthesia document: Postop Eval 1 completed: Yes
--- NOTE | 2025-02-28 07:44 | PCM.POSTANE2 ---
Anesthesia Postop Eval I Sum Postop Eval Completion status Anesthesia document: Postop Eval 1 completed: Yes Anesthesia Postop Eval I Summary Anesthesia Postop Eval I Summary: Anesthesia Postop Eval I: Assessment Summary Airway patent Yes 02/28/25 07:04 [email or web address] Spontaneous unlabored Yes 02/28/25 07:04 [email or web address] respirations Mental status Awake,Calm 02/28/25 07:04 [email or web address] nausea No 02/28/25 07:04 [email or web address] Vomiting No 02/28/25 07:04 [email or web address] Anesthesia Postop Eval I: Fluid Summary Crystalloid volume administer 400 02/28/25 07:04 [email or web address] (ml) Colloids volume administered ( ml) Blood Product volume administered (ml) Total IV fluid infused 400 02/28/25 07:04 [email or web address] Anesthesia Postop Eval I: Summary Notes Anesthesia Complication No 02/28/25 07:04 [email or web address] Anesthesia Complication Comment: Post-operative progress note Anesthesia: Postop Eval II Evaluation Mental status: Awake Pain Level: 0 nausea: No Vomiting: No
== END 2025-02-28 07:46 | disposition home or self-care (01) ==
LOC: EN 05:33 → AC 05:34
PROVIDERS: PCP General Practice; Referring Provider General Practice; Visit Provider Internal Medicine Gastroenterology
PROC: 0DJ08ZZ Inspection of Upper Intestinal Tract, Via Natural or Artificial Opening Endoscopic (ICD-10-PCS; CPT 43235; principal; 2025-02-28 06:25)
DX: R13.10 Dysphagia, unspecified (principal); N18.4 Chronic kidney disease, stage 4 (severe); I50.9 Heart failure, unspecified; I13.0 Hypertensive heart and chronic kidney disease with heart failure and stage 1 through stage 4 chronic kidney disease, or unspecified chronic kidney disease; J44.9 Chronic obstructive pulmonary disease, unspecified; E11.22 Type 2 diabetes mellitus with diabetic chronic kidney disease; Z79.4 Long term (current) use of insulin; K22.0 Achalasia of cardia; K22.70 Barrett's esophagus without dysplasia; E78.00 Pure hypercholesterolemia, unspecified; I25.10 Atherosclerotic heart disease of native coronary artery without angina pectoris; Z90.49 Acquired absence of other specified parts of digestive tract; Z86.73 Personal history of transient ischemic attack (TIA), and cerebral infarction without residual deficits; I25.2 Old myocardial infarction; Z79.899 Other long term (current) drug therapy; F41.9 Anxiety disorder, unspecified; F42.9 Obsessive-compulsive disorder, unspecified; Z99.81 Dependence on supplemental oxygen; Z79.82 Long term (current) use of aspirin; Z79.02 Long term (current) use of antithrombotics/antiplatelets; Z79.85 Long-term (current) use of injectable non-insulin antidiabetic drugs; Z79.51 Long term (current) use of inhaled steroids; Z96.651 Presence of right artificial knee joint; Z95.5 Presence of coronary angioplasty implant and graft; F17.210 Nicotine dependence, cigarettes, uncomplicated; R11.2 Nausea with vomiting, unspecified; K30 Functional dyspepsia
CPT/HCPCS: 43236; 82962; A4216; J0585; J2405